=== PATIENT | female | born 1985 | race Caucasian/White ===

== ENCOUNTER 2022-07-30 14:24 | Outpatient (OUT) | payer OTHER, SELFPAY ==
--- NOTE | 2022-07-30 14:34 | US_ITS ---
[address] [address] Patient Name: ROBLES YEN MRN: [id number] date: 1985 Sex: F Assigned Patient Location: US Current Patient Location: US Accession/Order Number: [id number] Exam Date: 07/30/2022 14:34 Report Date: 07/30/2022 16:17 At the request of: KAROL SPIVEY Procedure: US venous doppler LE LT EXAMINATION: US venous doppler LE LT HISTORY: Pain of left calf M79.662 COMPARISON: No relevant comparison available. FINDINGS: REGION: Left lower extremity THROMBI: None. COMPRESSIBILITY: Normal compressibility. FLOW: Normal waveform and antegrade flow between 5 and 20 cm/s. OTHER: None. IMPRESSION: 1. No deep vein thrombus within the left lower extremity. Electronically authenticated by: DEEJAY REES Date: 07/30/2022 16:17
== END 2022-07-30 14:25 ==
PROVIDERS: PCP Nurse Practitioner; Visit Provider Personal Emergency Response Attendant
DX: M79.662 Pain in left lower leg (principal)
CPT/HCPCS: 93971

== ENCOUNTER 2022-12-29 09:41 | Outpatient (OUT) | payer OTHER, SELFPAY ==
[2022-12-29 10:03] LABS: Basophils Percent Auto 0.7 % (0.2-2.0); Eosinophils Absolute Auto 0.1 10^3/uL (0.0-0.7); Eosinophils Percent Auto 2.2 % (0.9-7.0); Hematocrit 38.9 % (36.0-48.0); Hemoglobin 12.9 g/dL (12.0-16.0); Immature Granulocytes Abs Auto 0.02 10^3/uL (0.00-0.03); Immature Granulocytes Pct Auto 0.3 % (0.0-0.5); Lymphocytes Absolute Auto 1.7 10^3/uL (1.2-3.8); Lymphocytes Percent Auto 28.8 % (20.5-60.0); Mean Corpuscular HGB Conc 33.2 g/dL (29.9-35.2); Mean Corpuscular Hemoglobin 28.8 pg (26.7-34.0); Mean Corpuscular Volume 86.8 fL (81.0-99.0); Mean Platelet Volume 11.1 fL (9.5-13.5); Monocytes Absolute Auto 0.6 10^3/uL (0.3-0.8); Monocytes Percent Auto 9.2 % (1.7-12.0); Neutrophils Absolute Auto 3.5 10^3/uL (1.4-6.5); Neutrophils Percent Auto 58.8 % (43.0-75.0); Platelet Count 282 10^3/uL (150-450); Red Blood Count 4.48 10^6/uL (4.20-5.40); Red Cell Distribution Width 12.3 % (11.0-15.0)
[2022-12-29 10:31] LABS: Alanine Aminotransferase 35 U/L (14-59); Albumin Level 3.6 g/dL (3.4-5.0); Alkaline Phosphatase 65 U/L (46-116); Anion Gap 8.8; Aspartate Amino Transferase 28 U/L (15-37); BUN Creatinine Ratio 9.6; Bilirubin Total 0.5 mg/dL (0.2-1.0); Calcium 9.2 mg/dL (8.5-10.1); Carbon Dioxide 29.3 mmol/L (21.0-32.0); Chloride 104 mmol/L (98-107); Estimated GFR (African America >60 (>=60); Estimated GFR (Non-African Ame 54 (>=60); Globulin 3.7 g/dL; Glucose 91 mg/dL (74-106); Potassium 4.1 mmol/L (3.5-5.1); Sodium 138 mmol/L (136-145); Thyroid Stimulating Hormone 2.903 uIU/mL (0.358-3.740); Total Protein 7.3 g/dL (6.4-8.2)
== END 2022-12-29 09:42 | disposition home or self-care (01) ==
LOC: LAB 09:43
PROVIDERS: PCP Nurse Practitioner; Visit Provider Nurse Practitioner
DX: R25.2 Cramp and spasm (principal); N92.0 Excessive and frequent menstruation with regular cycle
CPT/HCPCS: 36415; 80053; 82728; 83540; 83735; 84439; 84443; 85025

== ENCOUNTER 2023-03-23 20:11 | Outpatient (REF) | payer OTHER, SELFPAY ==
--- OUTSIDE RECORDS SUMMARY | 2023-03-24 20:19 | XMS_ITS | CCD ---
Author Name Unknown Address [address] [place] [address] Organization [facility] Care Team Providers Care [place] Name Role Phone Unavailable Primary Care Provider UnavailKika Huitron Primary Care Provider Kika Guaman Primary Care Provider [phone] POOL, AMAYA E Referring Unavailable KIKA GUAMAN Primary Care Unavailable POOL, AMAYA E Referring Unavailable KIKA GUAMAN Primary Care Unavailable POOL, AMAYA E Referring Unavailable KIKA GUAMAN Primary Care Unavailable POOL, AMAYA E Referring Unavailable REYNA GUAMANA Larry Primary Care Unavailable POOL, AMAYA E Referring Unavailable KIKA GUAMAN Primary Care Unavailable Kika Guaman Primary Care Provider Katiuska Ho Unavailable Barbara Zhu Unavailable AICHHOLZ, MUSIC PUBLISHER KIKA Primary Care Unavailable CAROLINA, DR JOSSY Tran Admitting Unavailbud FIGUEROA, DR JOSSY Tran Attending Unavailbud e ALLYSSA ., MR KAROL Consulting Unavailable AICHHOLZ, MUSIC PUBLISHER KIKA Primary Care Unavailable DR VINCENZO FISCHER Admitting Unavailable LAWRENCE, DR VINCENZO Rahman Attending Unavailable DR VINCENZO FISCHER Consulting Unavailable AICHHOLZ, MUSIC PUBLISHER KIKA Admitting Unavailable AICHHOLZ, MUSIC PUBLISHER KIKA Attending Unavailable AICHHOLZ, MUSIC PUBLISHER KIKA Primary Care Unavailable AICHHOLZ, MUSIC PUBLISHER KIKA Consulting Unavailable RONALD JOHN Consulting Unavailable AICHHOLZ, MUSIC PUBLISHER KIKA Admitting Unavailable AICHHOLZ, MUSIC PUBLISHER KIKA Attending Unavailable AICHHOLZ, MUSIC PUBLISHER KIKA Primary Care Unavailable AICHHOLZ, MUSIC PUBLISHER KIKA Consulting Unavailable AICHHOLZ, MUSIC PUBLISHER KIKA Admitting Unavailable AICHHOLZ, MUSIC PUBLISHER KIKA Attending Unavailable AICHHOLZ, MUSIC PUBLISHER KIKA Primary Care Unavailable AICHHOLZ, MUSIC PUBLISHER KIKA Consulting Unavailable AICHHOLZ, MUSIC PUBLISHER KIKA Admitting Unavailable AICHHOLZ, MUSIC PUBLISHER KIKA Attending Unavailable AICHHOLZ, MUSIC PUBLISHER KIKA Primary Care Unavailable AICHHOLZ, MUSIC PUBLISHER KIKA Consulting Unavailable AICHHOLZ, MUSIC PUBLISHER KIKA Primary Care Unavailable DR VINCENZO FISCHER Admitting Unavailable LAWRENCE, DR VINCENZO Rahman Attending Unavailable DR VINCENZO FISCHER Consulting Unavailable CABRERA, DR DEEJAY Rahman Consulting Unavailable RAJINDER CELESTE Consulting Unavailable AICHOLZ, KIKA Attending Unavailable AICHOLZ, KIKA Attending Unavailable Medications Current Medications Medication Drug Class(es) Dates Sig (Normalized) Sig (Original) acetaminophen 325 mg oral tablet (6 sources) Start: 12-21-2018 End: 12-22-2018 take 650 mg by mouth every four hours as needed for fever, then take 4000 mg by mouth every twenty-four hours as needed for fever 650 mg, Oral, EVERY 4 HOURS PRN, Fever, Fever >100.5 F (38 C) or pain 1-10, Starting Tue12/22/18 at 0325 Maximum dose of acetaminophen is 4000 mg from all sources in 24 hours. take 2 tablets by mo uth every six hours as needed for pain acetaminophen (TYLENOL) 325 MG tablet Ta ke 650 mg by mouth every 6 hours as needed for Pain 0 Active benzocaine 200 mg/ml / menthol 5 mg/ml topical spray (1 source) Standardized Chemical Allergen Start: 12-22-2018 apply 1 dose topically twice daily Topical, 2 TIMES DAILY, First dose on Tue12/22/18 at 0900 Apply to perineal area. Patient is capable and may self administer at bedside. brompheniramine maleate 0.4 mg/ml / dextromethorphan hydrobromide 2 mg/ml / pseudoephedrine hydrochloride 6 mg/ml oral solution (1 source) alpha-Adrenergic Agonist, Uncompetitive N-enlddc-V-aspartat e Receptor Antagonist, Sigma-1 Agonist Start: 05-26-2021 take 10 mL by mouth every six hours Pseudoeph-Brom phen-DM 30-2-10 MG/5ML 10 mL Orally every 6 hours for 5 days May, Active docusate sodium 100 mg oral capsule (1 source) Start: 12-22-2018 take 100 mg by mouth twice daily as needed for constipation 100 mg, Oral, 2 TIMES DAILY PRN, Constipation, Starting Tue12/22/18 at 0325 Do not crush or break. ethinyl estradiol 0.035 mg / norgestimate 0.25 mg oral tablet (3 sources) Progestin, Estrogen Start: 02-08-2019 take 1 tablet by mouth once daily norgestimate-e thinyl estradiol (ORTHO-CYCLEN, 28,) 0.25-35 MG-MCG per tablet Indications: care following vaginal delivery Take 1 tablet by mouth daily 3 packet 3 02/08/2019 Active fluticasone propionate 0.05 mg/actuat metered dose nasal spray (3 sources) Corticosteroid Start: 05-26-2021 take 1 spray(s) nasal route once daily Flonase Allergy Relief 50 MCG/ACT 1 spray in each nostril Nasally Once a day for 14 day(s) May, Active Start: 12-10-2020 take 2 spray(s) nasa l route once daily FLONASE 50 mcg 2 sprays nasally qd Nov, Not-Taking Start: 12-10-2020 take 2 spray(s) nasa l route once daily FLONASE 50 mcg 2 sprays nasally qd Nov, Active ibuprofen 800 mg oral tablet (1 source) Nonsteroidal Anti-inflammatory Drug Start: 12-22-2018 take 800 mg by mouth every eight hours 800 mg, Oral, EVERY 8 HOURS, First dose on Tue12/22/18 at 0345 Do not crush or break. labetalol hydrochloride 100 mg oral tablet (3 sources) beta-Adrenergic Maude Start: 12-13-2018 take 100 mg by mouth twice daily 100 mg, Oral, 2 TIMES DAILY, First dose on Ila 12/21/18 at 2100 lanolin 0.5 mg/mg topical ointment (1 source) Start: 12-22-2018 Topical, PRN, Dry Skin, nipple discomfort, Starting Tue12/22/18 at 0325, oxytocin (PITOCIN) 30 units in 500 mL infusion (1 source) Start: 12-21-2018 oxytocin (PITOCIN) 30 units in 500 mL infusion MV-Min-Fe Fum-FA-DHA ( 1 PO) (13 sources) MV-Min-Fe Fum-FA-DHA ( 1 PO) Take by mouth daily 0 Active 3 ml sodium chloride 9 mg/ml injection (2 sources) Start: 12-22-2018 10 mL, Intravenous, EVERY 12 HOURS SCHEDULED (2 times per day), First dose on Tue12/22/18 at 0900, Start: 12-22-2018 take 10 mL intravenous route o nce 10 mL, Intravenous, PRN, Line Care, Starting Tue12/22/18 at 0325 After every IV line use witch saurabh 500 mg/ml medicated pad (1 source) Start: 12-22-2018 apply 1 dose topically twice daily Topical, 2 TIMES DAILY, First dose on Tue12/22/18 at 0900 Apply to perineal area. Patient is capable and may self administer at bedside. Completed/Discontinued Medications Medication Drug Class(es) Dates Sig (Normalized) Sig (Original) Blood Glucose Monitoring Suppl (TRUE METRIX METER) w/Device KIT (4 sources) Start: 10-23-2018 End: 12-23-2018 Blood Glucose Monitoring Suppl (TRUE METRIX METER) w/Device KIT use to test blood sugar 0 10/23/2018 12/23/2018 Discontinued (Stop Taking at Discharge) Start: 10-23-2018 Blood Glucose Monitoring Suppl (TRUE METRIX METER) w/Device KIT use to test blood sugar 0 10/23/2018 Active calcium chloride 0.0014 meq/ml / potassium chloride 0.004 meq/ml / sodium chloride 0.103 meq/ml / sodium lactate 0.028 meq/ml injectable solution (1 source) Start: 12-21-2018 End: 12-22-2018 lactated ringers infusion predniSONE 20 mg oral tablet (2 sources) Start: 12-10-2020 take 1 tablet by mouth every twelve hours predniSONE 20 MG 1 tablet Orally bid for 5 day(s) Nov, Not-Taking rho(d) immune globulin, human 1500 unt prefilled syringe (2 sources) Human Immunoglobulin G Start: 12-22-2018 End: 12-23-2018 300 mcg, Intramuscular, PRN, if mom negative and baby positive, Starting 11/1/19 at 0325, For 1 dose, Start: 10-17-2018 End: 10-17-2018 rho(D) immune globulin (HYPE RRHO S/D) injection 300 mcg sodium phosphate 67.8 mg/ml / sodium phosphate, monobasic 185 mg/ml enema (1 source) Start: 12-06-2018 End: 12-06-2018 fleet rectal enema 1 enema valACYclovir 500 mg oral tablet (8 sources) Herpesvirus Nucleoside Analog DNA Polymerase Inhibitor, Herpes Simplex Virus Nucleoside Analog DNA Polymerase Inhibitor, Herpes Zoster Virus Nucleoside Analog DNA Polymerase Inhibitor Start: 12-13-2018 End: 12-23-2018 take 1 tablet by mouth once daily valACYclovir (VALTREX) 500 MG tablet Indications: Hx of herpes genitalis Take 1 tablet by mouth daily 30 tablet 2 12/13/2018 12/23/2018 Discontinued (Stop Taking at Discharge) Start: 03-02-2017 take 1 tablet by josette th twice daily valACYclovir (VALTREX) 500 MG tablet Take 1 tablet by mouth 2 times daily 60 tablet 2 03/02/2017 Active Problems Active Problems Problem Classification Problem Date Documented Da te Episodic/Chronic Essential hypertension (10 sources) Hypertensive disorder; Translations: [Hypertension] Onset: 12-04-2018 12-04-2018 Chronic Hypertension complicating ; childbirth and the puerperium (10 sources) Pre-existing hypertension in obstetric context; Translations: [Pre-existing essential hypertension during in third trimester] 12-04-2018 Chronic Menstrual disorders (2 sources) Amenorrhea; Translations: [Irregular periods] Chronic Other aftercare (1 source) Other halfway (current) drug therapy; Translations: [OTH PENITENTIARY CURRENT DRUG THERAPY] Onset: 04-06-2022 Episodic Other complications of (14 sources) Anemia in mother complicating , childbirth AND/OR puerperium; Translations: [Anemia affecting in third trimester] Onset: 01-23-2016 Resolved: 03-20-2016 03-20-2016 Chronic Other connective tissue disease (1 source) Other muscle spasm; Translations: [OTHER MUSCLE SPASM] Onset: 04-06-2022 Episodic Other non-traumatic joint disorders (4 sources) Pain in left knee; Translations: [PAIN IN LEFT KNEE] Onset: 06-01-2022 Episodic Other nutritional; endocrine; and metabolic disorders (1 source) Obesity, unspecified; Translations: [OBESITY UNSPECIFIED] Onset: 09-22-2021 Chronic Other and delivery including normal (20 sources) Delivery normal; Translations: [ with uncertain dates] Onset: 01-09-2016 Resolved: 03-20-2016 02-09-2016 Episodic Residual codes; unclassified (1 source) Gestation period, 27 weeks; Translations: [27 weeks gestation of ] Episodic Residual codes; unclassified (1 source) Gestation period, 35 weeks; Translations: [35 weeks gestation of ] Episodic Residual codes; unclassified (8 sources) Gestation period, 34 weeks; Translations: [34 weeks gestation of ] 12-04-2018 Spondylosis; intervertebral disc disorders; other back problems (3 sources) Cervicalgia; Translations: [CERVICALGIA] Onset: 04-04-2022 Episodic Unclassified (2 sources) Patient encounter status; Translations: [Screen for STD (sexually transmitted disease)] Unclassified (1 source) LOW BACK PAIN, UNSPECIFIED; Translations: [LOW BACK PAIN, UNSPECIFIED] Onset: 04-06-2022 Unclassified (2 sources) COUGH, UNSPECIFIED; Translations: [COUGH, UNSPECIFIED] Onset: 09-29-2021 Urinary tract infections (1 source) Urinary tract infection, site not specified; Translations: [UTI SITE NOT SPECIFIED] Onset: 04-06-2022 Episodic Viral infection (13 sources) Anogenital herpesviral infection; Translations: [Anogenital herpes simplex virus (HSV) infection] Onset: 01-09-2016 02-09-2016 Chronic Viral infection (2 sources) COVID-19; Translations: [Disease caused by 2019-nCoV] Onset: 09-29-2021 Past or Other Problems Problem Classification Problem Date Documented Da te Episodic/Chronic Complications of surgical procedures or medical care (1 source) Infection following a procedure, unspecified, initial encounter; Translations: [INFECTION FOLLOWING PROC UNSP INIT] Onset: 12-24-2021 Episodic Diabetes or abnormal glucose tolerance complicating ; childbirth; or the puerperium (20 sources) Gestational diabetes mellitus, class A>1<; Translations: [Gestational diabetes mellitus] Onset: 01-09-2016 01-09-2016 Episodic Early or threatened labor (13 sources) Premature uterine contraction; Translations: [ uterine contractions in third trimester, antepartum] Onset: 01-09-2016 Resolved: 03-20-2016 03-20-2016 Episodic distress and abnormal forces of labor (20 sources) Irregular uterine contractions; Translations: [Irregular uterine contractions] Onset: 01-07-2016 Resolved: 03-20-2016 03-20-2016 Episodic Immunizations and screening for infectious disease (13 sources) Serology positive; Translations: [Contact with and (suspected) exposure to other viral communicable diseases] Onset: 12-10-2020 Resolved: 01-14-2021 12-22-2018 Episodic Nausea and vomiting (13 sources) Nausea and vomiting; Translations: [Nausea and vomiting during ] Onset: 01-22-2016 Resolved: 03-20-2016 03-20-2016 Episodic Other complications of (14 sources) Herpes in ; Translations: [Herpes infection in ] Onset: 01-10-2016 01-13-2016 Episodic Other gastrointestinal disorders (13 sources) Diarrhea; Translations: [Diarrhea in adult patient] Onset: 01-22-2016 Resolved: 03-20-2016 03-20-2016 Episodic Other gastrointestinal disorders (8 sources) Constipation; Translations: [Constipation during in third trimester] Onset: 12-05-2018 12-05-2018 Episodic Other screening for suspected conditions (not mental disorders or infectious disease) (12 sources) Blood urate raised; Translations: [Possible ] Onset: 12-21-2018 Resolved: 01-04-2019 01-04-2019 Episodic Other skin disorders (4 sources) Localized swelling, mass and lump, head; Translations: [LOCALIZED SWELLING MASS AND LUMP HEAD] Onset: 12-22-2021 Episodic Other upper respiratory infections (2 sources) Acute sinusitis, unspecified; Translations: [Acute upper respiratory infection, unspecified] Onset: 12-10-2020 Resolved: 05-26-2021 Episodic Polyhydramnios and other problems of amniotic cavity (20 sources) Polyhydramnios; Translations: [Polyhydramnios with problem] Onset: 01-09-2016 Resolved: 01-04-2019 03-20-2016 Episodic Residual codes; unclassified (13 sources) Gestation period, 36 weeks; Translations: [36 weeks gestation of ] Onset: 01-22-2016 Resolved: 03-20-2016 03-20-2016 Episodic Residual codes; unclassified (13 sources) H/O: miscarriage; Translations: [H/O miscarriage, currently ] Onset: 06-18-2015 06-18-2015 Episodic Residual codes; unclassified (14 sources) Gestation period, 37 weeks; Translations: [37 weeks gestation of ] Onset: 02-03-2016 Resolved: 03-20-2016 03-20-2016 Episodic Residual codes; unclassified (13 sources) Gestation period, 33 weeks; Translations: [33 weeks gestation of ] Onset: 01-07-2016 Resolved: 03-20-2016 03-20-2016 Episodic Residual codes; unclassified (1 source) Gestation period, 34 weeks 12-04-2018 Episodic Residual codes; unclassified (1 source) Gestation period, 38 weeks Onset: 02-09-2016 Resolved: 03-20-2016 03-20-2016 Episodic Residual codes; unclassified (12 sources) Gestation period, 38 weeks; Translations: [38 weeks gestation of ] Onset: 02-09-2016 Resolved: 03-20-2016 03-20-2016 Unclassified (1 source) COUGH, UNSPECIFIED; Translations: [COUGH, UNSPECIFIED] Onset: 09-28-2021 Results Test Name Value Interpretation Reference Range Facility MRI KNEE LT WO CONon 023 MRI KNEE LT WO CON EXAM: MRI KNEE LT WO CON REASON FOR EXAM: Pain of left knee joint. TECHNIQUE: Multiplanar, multisequence imaging of the left knee was performed without contrast COMPARISON: No recent relevant imaging. FINDINGS: Laterally, the iliotibial band, fibular collateral ligament, popliteus tendon and biceps tendon are intact. The ACL is intact. The lateral meniscus demonstrates normal morphology and signal without tear. The lateral articular cartilage is intact. Medially, the medial collateral ligament is intact. The PCL is intact. The medial meniscus demonstrates normal morphology and signal without tear. The medial articular cartilage is intact. The extensor mechanism is intact. The patellofemoral cartilage is intact. The bone marrow signal is without fracture or osteonecrosis. Physiologic amount of fluid is present in the joint. The regional musculature is unremarkable. IMPRESSION: Unremarkable left knee MRI. Electronically authenticated by: RONALD JOHN Date: 2022-06-01 13:03 Normal [facility] CULTURE URINEon 04-07-2022 CULTURE URINE Isolate 1 Escherichia coli 10,000 cfu/mL of ORGANISM 1 Escherichia coli ANTIBIOTIC M.I.C RX STATUS Ampicillin >=32 R F Ampicillin/Sulbacta m >=32 R F Cefazolin 8 S F Ceftazidime <=1 S F Ceftriaxone <=1 S F Ertapenem <=0.5 S F Imipenem <=0.25 S F Amikacin <=2 S F Gentamicin >=16 R F Tobramycin 8 I F Ciprofloxacin <=0.25 S F Levofloxacin <=0.12 S F Nitrofurantoin <=16 S F Trimethoprim/Sulfam ethoxazole <=20 S F Normal [facility] Comment on above: Performed By: #### C VDTB #### [facility] [address] [place] [address] Dr. Latanya Donis ER URINE PROFILEon 3 Bilirubin Ql (U) Negative Normal NEGATIVE [facility] Comment on above: Performed By: #### Arti BOYLE UMICRO #### [facility] [address] [place] [address] Dr. Latanya Donis Clarity (U) CLEAR Normal CLEAR [facility] Comment on above: Performed By: #### Arti BOYLE UMICRO #### [facility] [address] [place] [address] Dr. Latanya Donis Color (U) BROWN Abnormal YELLOW [facility] Comment on above: Performed By: #### Arti BOYLE UMICRO #### [facility] [address] [place] [address] Dr. Latanya Donis ERUD A micrscopic examination will be performed if indicated. Normal [facility] Comment on above: Performed By: #### Arti BOYLE UMICRO #### [facility] [address] [place] [address] Dr. Latanya Donis Glucose Ql (U) Negative Normal NEGATIVE [facility] Comment on above: Performed By: #### Arti BOYLE UMICRO #### [facility] [address] [place] [address] Dr. Latanya Donis Hemoglobin Ql (U) LARGE Abnormal NEGATIVE [facility] Comment on above: Performed By: #### Arti BOYLE UMICRO #### [facility] [address] [place] [address] Dr. Latanya Donis Ketones Ql (U) Negative Normal NEGATIVE [facility] Comment on above: Performed By: #### LEE LUNA #### [facility] [address] [place] [address] Dr. Latanya Donis LEUKOCYTES MODERATE Abnormal NEGATIVE [facility] Comment on above: Performed By: #### STEFANIA LUNARO #### [facility] [address] [place] [address] Dr. Latanya Donis Nitrite Ql (U) Positive Abnormal NEGATIVE [facility] Comment on above: Performed By: #### STEFANIA LUNARO #### [facility] [address] [place] [address] Dr. Latanya Donis pH (U) 5.5 [pH] Normal 5-9 [facility] Comment on above: Performed By: #### LEE LUNA #### [facility] [address] [place] [address] Dr. Latanya Donis Protein (U) [Mass/Vol] 100 mg/dL Abnormal NEGATIVE/ TRACE [facility] Comment on above: Performed By: #### LEE LUNA #### [facility] [address] [place] [address] Dr. Latanya Donis SPEC GRAVITY 1.025 Normal 1.005-<=1.025 [facility] Comment on above: Performed By: #### STEFANIA LUNARO #### [facility] [address] [place] [address] Dr. Latanya Donis UR MICRO IND INDICATED Normal [facility] Comment on above: Performed By: #### STEFANIA LUNARO #### [facility] [address] [place] [address] Dr. Latanya Donis Urobilinogen Qn (U) 1.0 {Hanny'U}/dL Normal 0.2 - 1. 0 [facility] Comment on above: Performed By: #### STEFANIA LUNARO #### [facility] [address] [place] [address] Dr. Latanya Donis URINE MICROSCOPIC ONLYon BACTERIA MODERATE Abnormal NONE SEEN [facility] Comment on above: Performed By: #### Arti BOYLE UMICRO #### [facility] [address] [place] [address] Dr. Latanya Donis Bacteria identified Cx Nom (U) INDICATED Normal [facility] Comment on above: Performed By: #### E RUR, UMICRO #### [facility] [address] [place] [address] Dr. Latanya Donis CAST NONE SEEN Normal NONE SEEN [facility] Comment on above: Performed By: #### E TAMAR, UMICRO #### [facility] [address] [place] [address] Dr. Latanya Donis Crystals LM Nom (Urine sed) NONE SEEN Normal NONE SEEN [facility] Comment on above: Performed By: #### E RULacey UMICRO #### [facility] [address] [place] [address] Dr. Latanya Donis Epithelial cells LM Ql (Urine sed) NONE SEEN Normal NONE SEEN /RARE [facility] Comment on above: Performed By: #### Arti BOYLE UMICRO #### [facility] [address] [place] [address] Dr. Latanya Donis MUCOUS NONE SEEN Normal NONE SEEN [facility] Comment on above: Performed By: #### Arti BOYLE, UMICRO #### [facility] [address] [place] [address] Dr. Latanya Donis RBC (U) [#/Vol] /uL Abnormal 0-2 [facility] Comment on above: Performed By: #### E TAMAR UMICRO #### [facility] [address] [place] [address] Dr. Latanya Donis WBC 5-10 Abnormal NONE SEEN [facility] Comment on above: Performed By: #### E TAMAR, UMICRO #### [facility] [address] [place] [address] FACIAL BONES W CONon 11-0 CT FACIAL BONES W CON EXAMINATION: CT FACIAL BONES W CON HISTORY: LOCALIZED SWELLING, MASS AND LUMP, UNSPECIFIED ; left facial pain; recent wisdom teeth removal COMPARISON: No relevant comparison available. TECHNIQUE: Axial, Coronal, and Sagittal CT images created with IV contrast. Dose reduction techniques were achieved by using automated exposure control and/or adjustment of mA and/or kV according to patient size and/or use of iterative reconstruction technique. FINDINGS: FACIAL BONES: No bony lesion or fracture. SINUSES: Trace amount of mucosal thickening within left maxillary sinus. No fluid levels. NASAL FOSSA: No mass, fracture, or significant septal deviation. SKULL BASE: No mass or bone destruction. ORBITS: No visible mass, hematoma, edema or fracture. SALIVARY GLANDS: No mass. Unremarkable parotid and submandibular glands. OTHER: Evidence of recent extraction of the posterior molar within the right and left side of the maxilla. Inflammatory changes within the soft tissue and fat lateral to the posterior aspect of the left side of mandible without abscess formation, free air, or free fluid. IMPRESSION: 1. Soft tissue inflammatory changes lateral to the posterior left side of the mandible secondary to recent tooth extraction. Small area of mild phlegmonous changes, but no abscess. 2. Mild chronic sinusitis. No fluid levels or evidence of acute sinus involvement. Electronically authenticated by: DEEJAY REES Date: 2021-12-22 22:26 Normal [facility] CBC AUTO DIFFon 12-22-2021 BASO # 0.0 103/ul Normal 0.0-0.1 [facility] Comment on above: Performed By: #### C BC #### [facility] [address] [address] [address] Latanya Donis Basophils/100 WBC (Bld) 0.3 % Normal 0.2-2.0 [facility] Comment on above: Performed By: #### C BC #### [facility] [address] [address] [address] Latanya Donis EO # 0.1 103/ul Normal 0.0-0.7 [facility] Comment on above: Performed By: #### C BC #### [facility] [address] [address] [address] Latanya Donis Eosinophils/100 WBC (Bld) 0.6 % Critically low 0.9-7.0 [facility] Comment on above: Performed By: #### C BC #### [facility] [address] [address] [address] Latanya Donis Erythrocyte distribution width (RBC) [Ratio] 12.2 % Normal 11.0-15.0 [facility] Comment on above: Performed By: #### C BC #### [facility] [address] [place] [address] Dr. Latanya Donis Hematocrit (Bld) [Volume fraction] 37.1 % Normal 36.0-48.0 [facility] [facility] Comment on above: Performed By: #### C BC #### [facility] [address] [place] [address] Dr. Latanya Donis Hemoglobin (Bld) [Mass/Vol] 12.5 g/dL Normal 12.0-16.0 [facility] Comment on above: Performed By: #### C BC #### [facility] [address] [place] [address] Dr. Latanya Donis IG # 0.03 10e3/ul Normal 0.00-0.03 [facility] Comment on above: Performed By: #### C BC #### [facility] [address] [place] [address] Dr. Latanya Donis IG % 0.3 % Normal 0.0-0.5 [facility] Comment on above: Performed By: #### C BC #### [facility] [address] [place] [address] Dr. Latanya Donis LYMPH # 1.6 103/ul Normal 1.2-3.8 [facility] Comment on above: Performed By: #### C BC #### [facility] [address] [place] [address] Dr. Latanya Donis Lymphocytes/100 WBC (Bld) 17.1 % Critically low 20.5-60.0 [facility] Comment on above: Performed By: #### C BC #### [facility] [address] [place] [address] Dr. Latanya Donis MANUAL DIFF REQ NO Normal [facility] Comment on above: Performed By: #### C BC #### [facility] [address] [address] [address] Latanya Donis MCH (RBC) [Entitic mass] 29.3 pg Normal 26.7-34.0 [facility] Comment on above: Performed By: #### C BC #### [facility] [address] [place] [address] Dr. Latanya Donis MCHC (RBC) [Mass/Vol] 33.7 g/dL Normal 29.9-35.2 [facility] Comment on above: Performed By: #### C BC #### [facility] [address] [place] [address] Dr. Latanya Donis MCV (RBC) [Entitic vol] 86.9 fL Normal 81.0-99.0 [facility] Comment on above: Performed By: #### C BC #### [facility] [address] [place] [address] Dr. Latanya Donis MONO # 0.8 103/ul Normal 0.3-0.8 [facility] Comment on above: Performed By: #### C BC #### [facility] [address] [place] [address] Dr. Latanya Donis Monocytes/100 WBC (Bld) 8.2 % Normal 1.7-12.0 [facility] Comment on above: Performed By: #### C BC #### [facility] [address] [place] [address] Dr. Latanya Donis NEUT # 7.0 103/ul Critically high 1.4-6.5 [facility] Comment on above: Performed By: #### C BC #### [facility] [address] [place] [address] Dr. Latanya Donis Neutrophils/100 WBC (Bld) 73.5 % Normal 43.0-75.0 [facility] Comment on above: Performed By: #### C BC #### [facility] [address] [place] [address] Dr. Latanya Donis Platelet mean volume (Bld) [Entitic vol] 11.4 fL Normal 9.5-13.5 [facility] Comment on above: Performed By: #### C BC #### [facility] [address] [place] [address] Dr. Latanya Donis PLT 266 103/ul Normal 150-450 [facility] Comment on above: Performed By: #### C BC #### [facility] [address] [place] [address] Dr. Latanya Donis RBC 4.27 106/ul Normal 4.20-5.40 [facility] Comment on above: Performed By: #### C BC #### [facility] [address] [place] [address] Dr. Latanya Donis WBC 9.5 103/ul Normal 4.0-11.0 [facility] Comment on above: Performed By: #### C BC #### [facility] [address] [place] [address] Dr. Latanya Donis CULTURE BLOODon 12-22-2021 Microscopic examination of blood, culture Culture Observations: NO GROWTH AT 5 DAYS. Normal [facility] Comment on above: Performed By: #### C VDTBH #### [facility] [address] [place] [address] Dr. Latanya Donis Microscopic examination of blood, culture Culture Observations: NO GROWTH AT 5 DAYS. Normal [facility] Comment on above: Performed By: #### C VDTBH #### [facility] [address] [place] [address] Dr. Latanya Donis PROF CHEM 8 (BAS METB)on Anion gap [Moles/Vol] 12.1 mmol/L [facility] Comment on above: Performed By: #### B MP #### [facility] [address] [place] [address] Dr. Latanya Donis Calcium [Mass/Vol] 8.9 mg/dL Normal 8.5-10.1 [facility] Comment on above: Performed By: #### B MP #### [facility] [address] [place] [address] Dr. Latanya Donis Chloride [Moles/Vol] 107 mmol/L Normal 98-107 [facility] Comment on above: Performed By: #### B MP #### [facility] [address] [address] [address] Latanya Donis CO2 [Moles/Vol] 25.3 mmol/L Normal 21.0-32.0 [facility] Comment on above: Performed By: #### B MP #### [facility] [address] [address] [address] Latanya Donis Creatinine [Mass/Vol] 0.99 mg/dL Normal 0.55-1.02 [facility] Comment on above: Performed By: #### B MP #### [facility] [address] [address] [address] Latanya Donis EGFR-AF FRENCH >60 Normal >=60 [facility] Comment on above: Performed By: #### B MP #### [facility] [address] [address] [address] Latanya Donis EGFR-NON AF FRENCH >60 Normal >=60 [facility] Comment on above: Performed By: #### B MP #### [facility] [address] [address] [address] Latanya Donis Glucose [Mass/Vol] 94 mg/dL Normal 74-106 [facility] Comment on above: Performed By: #### B MP #### [facility] [address] [address] [address] Latanya Donis Potassium [Moles/Vol] 3.4 mmol/L Critically low 3.5-5.1 [facility] Comment on above: Performed By: #### B MP #### [facility] [address] [address] [address] Latanya Donis Sodium [Moles/Vol] 141 mmol/L Normal 136-145 [facility] Comment on above: Performed By: #### B MP #### [facility] [address] [address] [address] Latanya Donis Urea nitrogen [Mass/Vol] 11.0 mg/dL Normal 7.0-18.0 [facility] Comment on above: Performed By: #### B MP #### [facility] [address] [address] [address] Latanya Donis Urea nitrogen/Creatinine [Mass ratio] 11.1 mg/mg Normal [facility] Comment on above: Performed By: #### B MP #### [facility] [address] [address] [address] Latanya Donis CHLAMYDIA/GONOCOCCUS GERALDINE (SW AB/URINE/PAPon 10-13-2021 Chlamydia trachomatis, GERALDINE Negative Normal Negative [facility] Comment on above: Performed By: #### C VDTBH #### [facility] [address] [address] [address] Latanya Donis Neisseria gonorrhoeae, GERALDINE Negative Normal Negative [facility] Comment on above: Performed By: #### C VDTBH #### [facility] [address] [place] [address] Dr. Latanya Donis HEPATITIS PANEL, ACUTEon HBsAg Screen Negative Normal Negative [facility] Comment on above: Performed By: #### H EPACUT #### [facility] [address] [place] [address] Dr. Latanya Donis HCV AB <0.1 Normal 0.0-0.9 [facility] Comment on above: Performed By: #### H EPACUT #### [facility] [address] [place] [address] Dr. Latanya Donis Hep A Ab, IgM Negative Normal Negative [facility] Comment on above: Performed By: #### H EPACUT #### [facility] [address] [place] [address] Dr. Latanya Donis Hep B Core Ab, IgM Negative Normal Negative [facility] Comment on above: Performed By: #### H EPACUT #### [facility] [address] [address] [address] Latanya Donis Interpretation: Comment Normal [facility] Comment on above: Result Comment: Nega tive Not infected with HCV, unless recent infection is suspected or other evidence exists to indicate HCV infection. Performed By: #### H EPACUT #### [facility] [address] [place] [address] Dr. Latanya Donis HIV 1 AND 2 WITH REFLEXon HIV Screen 4th Generation wRfx Non-Reactive Normal Non Reactive [facility] Comment on above: Result Comment: HIV Negative HIV-1/HIV-2 antibodies and HIV-1 p24 antigen were NOT detected. There is no laboratory evidence of HIV infection. Performed By: #### H IV12 #### [facility] [address] [place] [address] Dr. Latanya Donis RPR QUANTon 10-10-2021 Rapid Plasma Reagin, Quant Non-Reactive Normal NonRea<1:1 [facility] Comment on above: Result Comment: Plea se Note: This test does not meet current guidelines for screening and diagnosis of syphilis. This test is intended for following treatment response in patients being treated for syphilis infection. To screen for syphilis infection, a reflex cascade that includes both RPR and a treponema-specific assay should be utilized, such as Treponema pallidum (Syphilis) Screening [place] (737121) or Rapid Plasma Reagin (RPR) Test With Reflex to Quantitative RPR and Confirmatory Treponema pallidum Antibodies (098813). Performed By: #### C VDTBH #### [facility] [address] [address] [address] Latanya Donis VAGINITIS/VAGINOSIS DNA PROB Kirill 10-10-2021 Delmy species Negative Normal Negative [facility] Comment on above: Performed By: #### V AGINT #### [facility] [address] [place] [address] Dr. Latanya Donis Gardnerella vaginalis Negative Normal Negative [facility] Comment on above: Performed By: #### V AGINT #### [facility] [address] [place] [address] Dr. Latanya Donis Trichomonas vaginalis Negative Normal Negative [facility] Comment on above: Performed By: #### V AGINT #### [facility] [address] [place] [address] Dr. Latanya Donis Covid-19 PCR (CVDTB)on SARS-CoV-2 (COVID-19) RNA GERALDINE+probe Ql (Unsp spec) Detected Critically abnormal NOT DETECTED [facility] Comment on above: Result Comment: This test is not yet approved or cleared by the [place] FDA. When there are no FDA-approved or cleared tests available, and other criteria are met, FDA can make tests available under an emergency access mechanism called an Emergency Use Authorization (EUA). The EUA for this test is supported by the Senior Net Programmer of Health and Human Service's declaration that circumstances exist to justify the emergency use of in vitro diagnostics for the detection and/or diagnosis of the virus that causes COVID-19. This EUA will remain in effect for the duration of the COVID-19 declaration justifying emergency of IVDs, unless it is terminated or revoked by the FDA (after which the test may no longer be used). Performed By: #### C VDTBH #### [facility] [address] [place] [address] Dr. Latanya Donis INSULINon 09-18-2021 Insulin 6.9 uIU/mL Normal 2.6-24.9 [facility] Comment on above: Performed By: #### I NSULIN #### [facility] [address] [place] [address] Dr. Latanya Donis FREE T4on 09-16-2021 Free T4 [Mass/Vol] 0.79 ng/dL Normal 0.76-1.46 [facility] Comment on above: Performed By: #### C VDTB #### [facility] [address] [place] [address] Dr. Latanya Donis GLYCOHEMOGLOBIN A1Con 2021 ADA RECOMMENDATION SEE BELOW Normal [facility] Comment on above: Result Comment: ADA RECOMMENDED LIMIT 4.0 - 6.0 ADA THERAPEUTIC TARGET < 7.0 ACTION SUGGESTED > 7.0 Performed By: #### A 1C #### [facility] [address] [place] [address] Dr. Latanya Donis Glucose [Mass/Vol] 91 mg/dL Normal [facility] Comment on above: Performed By: #### A 1C #### [facility] [address] [place] [address] Dr. Latanya Donis HbA1c (Bld) [Mass fraction] 4.8 % Normal 4.5-6.2 [facility] Comment on above: Performed By: #### A 1C #### [facility] [address] [place] [address] Dr. Latanya Donis PROF CHEM 8 (BAS METB)on Anion gap [Moles/Vol] 10.0 mmol/L Normal [facility] Comment on above: Performed By: #### C VDTBH #### [facility] [address] [place] [address] Dr. Latanya Donis Calcium [Mass/Vol] 9.8 mg/dL Normal 8.5-10.1 [facility] Comment on above: Performed By: #### C VDTBH #### [facility] [address] [place] [address] Dr. Latanya Donis Chloride [Moles/Vol] 103 mmol/L Normal 98-107 [facility] Comment on above: Performed By: #### C VDTBH #### [facility] [address] [place] [address] Dr. Latanya Donis CO2 [Moles/Vol] 30.4 mmol/L Normal 21.0-32.0 [facility] Comment on above: Performed By: #### C VDTBH #### [facility] [address] [place] [address] Dr. Latanya Donis Creatinine [Mass/Vol] 0.92 mg/dL Normal 0.55-1.02 [facility] Comment on above: Performed By: #### C VDTBH #### [facility] [address] [place] [address] Dr. Latanya Donis EGFR-AF FRENCH >60 Normal >=60 [facility] Comment on above: Performed By: #### C VDTBH #### [facility] [address] [place] [address] Dr. Latanya Donis EGFR-NON AF FRENCH >60 Normal >=60 [facility] Comment on above: Performed By: #### C VDTBH #### [facility] [address] [place] [address] Dr. Latanya Donis Glucose [Mass/Vol] 93 mg/dL Normal 74-106 [facility] Comment on above: Performed By: #### C VDTBH #### [facility] [address] [address] [address] Latanya Donis Potassium [Moles/Vol] 4.4 mmol/L Normal 3.5-5.1 [facility] Comment on above: Performed By: #### C VDTBH #### [facility] [address] [place] [address] Dr. Latanya Donis Sodium [Moles/Vol] 139 mmol/L Normal 136-145 [facility] Comment on above: Performed By: #### C VDTBH #### [facility] [address] [place] [address] Dr. Latanya Donis Urea nitrogen [Mass/Vol] 11.0 mg/dL Normal 7.0-18.0 [facility] Comment on above: Performed By: #### C VDTBH #### [facility] [address] [place] [address] Dr. Latanya Donis Urea nitrogen/Creatinine [Mass ratio] 12.0 mg/mg Normal [facility] Comment on above: Performed By: #### C VDTBH #### [facility] [address] [place] [address] Dr. Latanya Donis TSHon 09-16-2021 TSH 1.496 uIU/mL Normal 0.358-3.740 [facility] Comment on above: Performed By: #### C VDTBH #### [facility] [address] [place] [address] Dr. Latanya Donis COVID Quick Testingon 2020 Result Negative Jaco Solarsi Other COVID Quick Testingon 2020 Result Negative Jaco Solarsi Other Chlamydia/GC DNA, Uron 01-03 Chlamydia Probe, Ur Negative Normal NEG [facility] Comment on above: Result Comment: CHLA MYDIA TRACHOMATIS DNA not detected by nucleic acid amplification. This test is intended for medical purposes only and is not valid for the evaluation of suspected sexual abuse or for other forensic purposes. In certain contexts, culture may be required to meet applicable laws and regulations for diagnosis of C. trachomatis and N. gonorrhoeae infections. Per 2014 CDC recommendations, this test does not include confirmation of positive results by an alternative nucleic acid target. Performed By: #### U CGP #### [address] [address] Analysis Engineer: Ezio Calvillo MD Gonorrhea Probe, Ur Negative Normal NEG [facility] Comment on above: Result Comment: NEIS SERIA GONORRHOEAE DNA not detected by nucleic acid amplification. This test is intended for medical purposes only and is not valid for the evaluation of suspected sexual abuse or for other forensic purposes. In certain contexts, culture may be required to meet applicable laws and regulations for diagnosis of C. trachomatis and N. gonorrhoeae infections. Per 2014 CDC recommendations, this test does not include confirmation of positive results by an alternative nucleic acid target. Performed By: #### U CGP #### [address] [address] Analysis Engineer: Ezio Calvillo MD Cult,Urineon 01-04-2020 Cult,Urine Specimen Description .CLEAN CATCH URINE Special Requests NOT REPORTED Culture NO SIGNIFICANT GROWTH Report Status FINAL 01/04/2020 Normal [facility] Comment on above: Performed By: #### P PPVP #### [address] [address] Analysis Engineer: Ezio Calvillo MD Hemoglobin A1Con 01-04-2020 HbA1c (Bld) [Mass fraction] 4.8 % Normal 4.0-6.0 [facility] Comment on above: Performed By: #### A HCV, GLYHGB, HIVCMB #### [address] [address] Analysis Engineer: Ezio Calvillo MD HbA1c (Bld) [Mass fraction] 91 mg/dL Normal [facility] Comment on above: Result Comment: The ADA and AACC recommend providing the estimated average glucose result to permit better patient understanding of their HBA1c result. Performed By: #### A HCV, GLYHGB, HIVCMB #### [address] [place] [address] Analysis Engineer: Ezio Calvillo MD HIV Ag/Abon 01-03-2020 HIV Ag/Ab NONREACTIVE Normal [facility] Comment on above: Result Comment: No l aboratory evidence of HIV infection. If acute HIV infection is suspected, consider testing for HIV-1 RNA. Performed By: #### A HCV, GLYHGB, HIVCMB #### [address] [address] Analysis Engineer: Ezio Calvillo MD Hep C Abon 01-03-2020 Hep C Ab NONREACTIVE Normal [facility] Comment on above: Result Comment: The hepatitis C procedure used in our laboratory is a Chemiluminescent test specific for three recombinant HCV antigens. A negative anti-HCV result indicates that the antibodies to hepatitis C virus are not present at this time. Individuals with reactive anti-HCV should be considered infected and infectious until proven otherwise. Confirmation of all equivocal or reactive results is recommended by ordering HCV RNA by PCR. Performed By: #### A HCV, GLYHGB, HIVCMB #### [address] [address] Analysis Engineer: Ezio Calvillo MD Profileon 0 T.pallidum Ab Screen NONREACTIVE Normal [facility] Comment on above: Result Comment: T. pallidum antibodies are not detected. There is no serological evidence of infection with T. pallidum (early primary syphilis cannot be excluded). Retest in 2-4 weeks if syphilis is clinically suspect. Performed By: #### P RENAT #### [facility] [employer] [address] [place] [id number] Analysis Engineer: Ezio Calvillo MD [facility] [address] [place] [address] Analysis Engineer: Chase Glez MD Hep B Surf Ag NONREACTIVE Normal [facility] Comment on above: Performed By: #### P RENAT #### [address] [address] Analysis Engineer: Ezio Calvillo MD [facility] [address] [place] [address] Analysis Engineer: Chase Glez MD Rubella Ab, IgG 68.2 IU/mL Normal [facility] Comment on above: Result Comment: REFERENCE RANGE: <5.0 NON-REACTIVE (non-immune) 5.0 TO 9.9 EQUIVOCAL >=10.0 REACTIVE (immune) Performed By: #### P RENAT #### [facility] [address] [place], [place] [id number] Analysis Engineer: Ezio Calvillo MD [facility] [address] [place] [address] Analysis Engineer: Chase Glez MD HIV Screenon 01-02-2020 HIV Ag/Ab NONREACTIVE NONREACTIVE [place], [place] Comment on above: No laboratory eviden ce of HIV infection. If acute HIV infection is suspected, consider testing for HIV-1 RNA. Hepatitis C Antibodyon 01-01 Hepatitis C Ab NONREACTIVE NONREACTIVE [place], [place] Comment on above: The hepatitis C procedure used in our laboratory is a Chemiluminescent test specific for three recombinant HCV antigens. A negative anti-HCV result indicates that the antibodies to hepatitis C virus are not present at this time. Individuals with reactive anti-HCV should be considered infected and infectious until proven otherwise. Confirmation of all equivocal or reactive results is recommended by ordering HCV RNA by PCR. PROFILE Ion 020 Basophils (Bld) [#/Vol] 0.03 10*3/uL [place], [place] Basophils/100 WBC (Bld) 0 % 0 - 2 % [place] Differential Type NOT REPORTED [place] Eosinophils (Bld) [#/Vol] 0.12 10*3/uL [place] Eosinophils/100 WBC (Bld) 2 % 1 - 4 % [place] Erythrocyte distribution width (RBC) [Ratio] 12.4 % 11.8 - 14.4 % [place] Hematocrit (Bld) [Volume fraction] 41.5 % 36.3 - 47.1 % [place] Hemoglobin (Bld) [Mass/Vol] 13.5 g/dL 11.9 - 15.1 g/dL [place] Hepatitis B Surface Ag NONREACTIVE NONREACTIVE [place] Immature granulocytes (Bld) [#/Vol] 0 % 0 [place] Immature granulocytes (Bld) [#/Vol] 10*3/uL [place] Lymphocytes (Bld) [#/Vol] 2.14 10*3/uL [place] Lymphocytes/100 WBC (Bld) 28 % 24 - 43 % [place] MCH (RBC) [Entitic mass] 28.9 pg 25.2 - 33.5 pg [place] MCHC (RBC) [Mass/Vol] 32.5 g/dL 28.4 - 34.8 g/dL [place] MCV (RBC) [Entitic vol] 88.9 fL 82.6 - 102.9 fL [place] Monocytes (Bld) [#/Vol] 0.63 10*3/uL [place] Monocytes/100 WBC (Bld) 8 % 3 - 12 % [place] Platelet mean volume (Bld) [Entitic vol] 12.3 fL 8.1 - 13.5 fL [place], [place] Platelets (Bld) [#/Vol] NOT REPORTED [place] Platelets (Bld) [#/Vol] 213 10*3/uL [place] RBC (Bld) [#/Vol] 4.67 10*6/uL 3.95 - 5.1 1 m/uL [place], [place] RBC morphology finding Nom (Bld) NOT REPORTED [place] Rubella virus IgG Ql (S) 68.2 IU/mL [place], [place] Comment on above: REFERENCE RANGE: <5.0 NON-REACTIVE (non-immune) 5.0 TO 9.9 EQUIVOCAL >=10.0 REACTIVE (immune) Segmented neutrophils/100 WBC (Bld) 62 % 36 - 65 % [place] Segs Absolute 4.69 [place], [place] T. pallidum, IgG NONREACTIVE NONREACTIVE [place], [place] Comment on above: T. pallidum antibodies are not detected. There is no serological evidence of infection with T. pallidum (early primary syphilis cannot be excluded). Retest in 2-4 weeks if syphilis is clinically suspect. WBC (Bld) [#/Vol] 7.6 10*3/uL [place] WBC (Bld) [#/Vol] 0.0 10*3/uL 0.0 per 10 0 WBC [place] WBC Morphology NOT REPORTED [place], [place] TYPE AND SCREENon 1 03-03-2019 ABO/Rh Negative [place], [place] Profileon 0 Abs. Basophil 0.03 k/uL Normal 0.00-0.20 [facility] Comment on above: Performed By: #### P RENAT #### [place] [address] Analysis Engineer: Ezio Calvillo MD [address] [place] [address] Analysis Engineer: Chase Glez MD Abs.Imm.Granulocyte <0.03 Normal 0.00-0.30 [facility] Comment on above: Performed By: #### P RENAT #### [place] [id number] Analysis Engineer: Ezio Calvillo MD [facility] [address] [place] [address] [place] [address] Analysis Engineer: Chase Glez MD Abs.Neutrophil (Seg) 4.69 k/uL Normal 1.50-8.10 [facility] Comment on above: Performed By: #### P RENAT #### [place] [address] Analysis Engineer: Ezio Calvillo MD [facility] [address] [place] [address] [place] [id number] Analysis Engineer: Chase Glez MD Basophils/100 WBC (Bld) 0 % Normal 0-2 [facility] Comment on above: Performed By: #### P RENAT #### [address] [address] Analysis Engineer: Ezio Calvillo MD [address] [place] [id number] Analysis Engineer: Chase Glez MD Eosinophils (Bld) [#/Vol] 0.12 10*3/uL Normal 0.00-0.44 [facility] Comment on above: Performed By: #### P RENAT #### [address] [address] Analysis Engineer: Ezio aClvillo MD [address] [place] [phone] Analysis Engineer: Chase Glez MD Eosinophils/100 WBC (Bld) 2 % Normal 1-4 [facility] Comment on above: Performed By: #### P RENAT #### [address] [address] Analysis Engineer: Ezio Calvillo MD [address] [place] [phone] Analysis Engineer: Chase Glez MD Erythrocyte distribution width (RBC) [Ratio] 12.4 % Normal 11.8-14.4 [facility] Comment on above: Performed By: #### P RENAT #### [address] [address] Analysis Engineer: Ezio Calvillo MD [address] [place] [phone] Analysis Engineer: Chase Glez MD Hematocrit (Bld) [Volume fraction] 41.5 % Normal 36.3-47.1 [facility] Comment on above: Performed By: #### P RENAT #### [address] [address] Analysis Engineer: Ezio Calvillo MD [address] [place] [phone] Analysis Engineer: Chase Glez MD Hemoglobin (Bld) [Mass/Vol] 13.5 g/dL Normal 11.9-15.1 [facility] Comment on above: Performed By: #### P RENAT #### [address] [address] Analysis Engineer: Ezio Calvillo MD [address] [place] [phone] Analysis Engineer: Chase Glez MD Immature granulocytes (Bld) [#/Vol] 0 % Normal 0 [facility] Comment on above: Performed By: #### P RENAT #### [address] [address] Analysis Engineer: Ezio Calvillo MD [address] [place] [phone] Analysis Engineer: Chase Glez MD Lymphocytes (Bld) [#/Vol] 2.14 10*3/uL Normal 1.10-3.70 [facility] Comment on above: Performed By: #### P RENAT #### [address] [address] Analysis Engineer: Ezio Calvillo MD [address] [place] [address] Analysis Engineer: Chase Glez MD Lymphocytes/100 WBC (Bld) 28 % Normal 24-43 [facility] Comment on above: Performed By: #### P RENAT #### [address] [address] Analysis Engineer: Ezio Calvillo MD [address] [place] [phone] Analysis Engineer: Chase Glez MD MCH (RBC) [Entitic mass] 28.9 pg Normal 25.2-33.5 [facility] Comment on above: Performed By: #### P RENAT #### [address] [address] Analysis Engineer: Ezio Calvillo MD [facility] [address] [place] [address] Dr. [place] [phone] Analysis Engineer: Chase Glez MD MCHC (RBC) [Mass/Vol] 32.5 g/dL Normal 28.4-34.8 [facility] Comment on above: Performed By: #### P RENAT #### [address] [address] Analysis Engineer: Ezio Calvillo MD [address] [place] [address] Analysis Engineer: Chase Glez MD MCV (RBC) [Entitic vol] 88.9 fL Normal 82.6-102.9 [facility] Comment on above: Performed By: #### P RENAT #### [address] [address] Analysis Engineer: Ezio Calvillo MD [address] [place] [phone] Analysis Engineer: Chase Glez MD Monocytes (Bld) [#/Vol] 0.63 10*3/uL Normal 0.10-1.20 [facility] Comment on above: Performed By: #### P RENAT #### [address] [address] Analysis Engineer: Ezio Calvillo MD [address] [place] [phone] Analysis Engineer: Chase Glez MD Monocytes/100 WBC (Bld) 8 % Normal 3-12 [facility] Comment on above: Performed By: #### P RENAT #### [address] [address] Analysis Engineer: Ezio Calvillo MD [address] [place] [phone] Analysis Engineer: Chase Glez MD Neutrophil (Seg) 62 % Normal 36-65 [facility] Comment on above: Performed By: #### P RENAT #### [place] [id number] [place] [address] Analysis Engineer: Ezio Calvillo MD [facility] [address] [place], [place] [phone] Analysis Engineer: Chase Glez MD NRBC Automated 0.0 per 100 WBC Normal 0.0 [facility] Comment on above: Performed By: #### P RENAT #### [address] [address] Analysis Engineer: Ezio Calvillo MD [facility] [address] [place] [address] Dr. [place] [phone] Analysis Engineer: Chase Glez MD Platelet mean volume (Bld) [Entitic vol] 12.3 fL Normal 8.1-13.5 [facility] Comment on above: Performed By: #### P RENAT #### [address] [address] Analysis Engineer: Ezio Calvillo MD [facility] [address] [place] [address] Dr. [place] [phone] Analysis Engineer: Chase Glez MD Platelets (Bld) [#/Vol] 213 10*3/uL Normal 138-453 [facility] Comment on above: Performed By: #### P RENAT #### [address] [address] Analysis Engineer: Ezio Calvillo MD [facility] [address] [place] [phone] Analysis Engineer: Chase Glez MD RBC (Bld) [#/Vol] 4.67 10*6/uL Normal 3.95-5.11 [facility] Comment on above: Performed By: #### P RENAT #### [address] [address] Analysis Engineer: Ezio Calvillo MD [address] [place] [address] Analysis Engineer: Chase Glez MD WBC (Bld) [#/Vol] 7.6 10*3/uL Normal 3.5-11.3 [facility] Comment on above: Performed By: #### P RENAT #### [address] [address] Analysis Engineer: Ezio Calvillo MD [address] [place] [phone] Analysis Engineer: Chase Gelz MD Auto Diff Performed NOT REPORTED Normal [facility] Comment on above: Performed By: #### P RENAT #### [address] [address] Analysis Engineer: Ezio Calvillo MD [address] [place] [address] Analysis Engineer: Chase Glez MD Platelets (Bld) [#/Vol] NOT REPORTED Normal [facility] Comment on above: Performed By: #### P RENAT #### [address] [address] Analysis Engineer: Ezio Calvillo MD [address] [place] [address] Analysis Engineer: Chase Glez MD RBC morphology finding Nom (Bld) NOT REPORTED Normal [facility] Comment on above: Performed By: #### P RENAT #### [address] [address] Analysis Engineer: Ezio Calvillo MD [address] [place] [address] Analysis Engineer: Chase Glez MD WBC Morphology NOT REPORTED Normal [facility] Comment on above: Performed By: #### P RENAT #### [address] [id number] Analysis Engineer: Ezio Calvillo MD [facility] [address] [place], [place] [phone] Analysis Engineer: Chase Glez MD Type + Scrnon 01-01 Type + Scrn Negative [facility] Comment on above: Performed By: #### P RTYS #### [facility] [address] [place], [place] [phone] Analysis Engineer: Chase Glez MD Toxicology Scree, Urineon Amphetamine(s),Ur Negative Normal [facility] Comment on above: Performed By: #### C PDAU #### [facility] [address] [place], [place] [phone] Analysis Engineer: Chase Glez MD Barbiturate(s),Ur Negative Normal NEG [facility] Comment on above: Performed By: #### C PDAU #### [facility] [address] [place], [place] [phone] Analysis Engineer: Chase Glez MD Benzodiazepine(s) Negative Normal [facility] Comment on above: Performed By: #### C PDAU #### [facility] [address] [place], [place] [phone] Analysis Engineer: Chase Glez MD Buprenorphrine, Ur Negative Normal [facility] Comment on above: Performed By: #### C PDAU #### [facility] [address] [place], [place] [phone] Analysis Engineer: Chase Glez MD Cannabinoid(s),Ur Negative Normal [facility] Comment on above: Performed By: #### C PDAU #### [facility] [address] [place], [place] [phone] Analysis Engineer: Chase Glez MD Cocaine Metabolite Negative Normal [facility] Comment on above: Performed By: #### C PDAU #### [facility] [address] [place], [place] [phone] Analysis Engineer: Chase Glez MD Methadone Ql (U) Negative Normal NEG [facility] Comment on above: Performed By: #### C PDAU #### [facility] [address] [place], [place] [phone] Analysis Engineer: Chase Glez MD Methamphetamine, Ur Negative Normal NEG [facility] Comment on above: Performed By: #### C PDAU #### [facility] [address] [place], [place] [phone] Analysis Engineer: Chase Glez MD Opiate(s), Ur Negative Normal NEG [facility] Comment on above: Performed By: #### C PDAU #### [facility] [address] [place], [place] [phone] Analysis Engineer: Chase Glez MD Oxycodone, Urine Negative Normal NEG [facility] Comment on above: Performed By: #### C PDAU #### [facility] [address] [place], [place] [phone] Analysis Engineer: Chase Glez MD Phencyclidine, Ur Negative Normal [facility] Comment on above: Performed By: #### C PDAU #### [facility] [address] [place], [place] [phone] Analysis Engineer: Chase Glez MD Propoxyphene,Urine Negative Normal NEG [facility] Comment on above: Performed By: #### C PDAU #### [facility] [address] [place] [address] Analysis Engineer: Chase Glez MD Tricyclic antidepressants Screen Ql (U) Negative Normal [facility] Comment on above: Result Comment: Drug screen results are to be used for medical purposes only. All positive results are unconfirmed. Testing for employment or legal uses should be sent to a reference laboratory for confirmation. Performed By: #### C PDAU #### [facility] [address] [place], [place] [phone] Analysis Engineer: Chase Glez MD Interpretive Info NOT REPORTED Normal [facility] Comment on above: Performed By: #### C PDAU #### [facility] [address] [place], [place] [phone] Analysis Engineer: Chase Glez MD MDMA, Urine NOT REPORTED Normal NEG [facility] Comment on above: Performed By: #### C PDAU #### [facility] [address] [place] [address] Analysis Engineer: Chase Glez MD Urine Drug Screen, [facility] 01-02-2020 Amphetamine Screen, Ur Negative NEGATIVE [facility] [place] Barbiturate Screen, Ur Negative NEGATIVE [facility] [place] Benzodiazepine Screen, Urine Negative NEGATIVE [facility] [place] Buprenorphine Urine Negative NEGATIVE [facility] [place] Cannabinoid Scrn, Ur Negative NEGATIVE [facility] [place] [place] Cocaine Metabolite, Urine Negative NEGATIVE [facility] [place] MDMA, Urine NOT REPORTED NEGATIVE [facility] [place] [place] Methadone Screen, Urine Negative NEGATIVE [facility] [place] Methamphetamine, Urine Negative NEGATIVE [facility] [place] Opiates, Urine Negative NEGATIVE [facility] [place] [place] Oxycodone Screen, Ur Negative NEGATIVE [facility] [place] Phencyclidine, Urine Negative NEGATIVE [facility] [place] Propoxyphene, Urine Negative NEGATIVE [facility] [place] Test Information NOT REPORTED [facility] [place] Tricyclic Antidepressants, Urine Negative NEGATIVE [facility] [place] Comment on above: Drug screen results are to be used for medical purposes only. All positive results are unconfirmed. Testing for employment or legal uses should be sent to a reference laboratory for confirmation. Chlamydia/GC DNA, TPon 10-13 Chlamydia Probe, TP Negative Normal NEG [facility] Comment on above: Result Comment: CHLA MYDIA TRACHOMATIS DNA not detected by nucleic acid amplification. This test is intended for medical purposes only and is not valid for the evaluation of suspected sexual abuse or for other forensic purposes. In certain contexts, culture may be required to meet applicable laws and regulations for diagnosis of C. trachomatis and N. gonorrhoeae infections. Per 2014 CDC recommendations, this test does not include confirmation of positive results by an alternative nucleic acid target. Performed By: #### P PPVP #### [facility] [address] [place] [address] [phone] Analysis Engineer: Ezio Calvillo MD Gonorrhea Probe, TP Negative Normal NEG [facility] Comment on above: Result Comment: NEIS SERIA GONORRHOEAE DNA not detected by nucleic acid amplification. This test is intended for medical purposes only and is not valid for the evaluation of suspected sexual abuse or for other forensic purposes. In certain contexts, culture may be required to meet applicable laws and regulations for diagnosis of C. trachomatis and N. gonorrhoeae infections. Per 2014 CDC recommendations, this test does not include confirmation of positive results by an alternative nucleic acid target. Performed By: #### P PPVP #### [facility] [address] [place] [address] [phone] Analysis Engineer: Ezio Calvillo MD Cytologyon 10-11-2019 Cytology (NOTE) INTERPRETATION Cervical material, (ThinPrep vial, Imaging-assisted review): Specimen Adequacy: Satisfactory for evaluation. -Endocervical/trans formation zone component is absent. Descriptive Diagnosis: Negative for intraepithelial lesion or malignancy. Shift in rebecca suggestive of bacterial vaginosis. 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 [facility] Rec: [id number] Path Number: [id number] [facility] ANATOMIC PATHOLOGY [address] [place] [phone] [facility] Comment on above: Performed By: #### P PPVP #### [facility] [address] [place] [address] [id number] Analysis Engineer: Ezio Calvillo MD HCG, Quanton 02-06-2019 HCG, Quant <1 Normal <5 [facility] Comment on above: Result Comment: Non-preg premeno <=5 Postmeno <=8 Male <=3 If HCG results do not concur with clinical observations, additional testing to confirm results is recommended. Elevated results not associated with may be found in patients with other diseases such as tumors of the germ cells (testis, ovaries, etc.), bladder, pancreas, stomach, lungs, and liver. Performed By: #### B HCG #### [facility] [address] [place] [address] Analysis Engineer: Chase Glez MD hCG, Quantitative, Ordered By: Amaya Franco on 02-06-2019 hCG Quant <1 <5 IU/L [facility] Work Phone: Comment on above: Non-preg premeno <=5 Postmeno <=8 Male <=3 If HCG results do not concur with clinical observations, additional testing to confirm results is recommended. Elevated results not associated with may be found in patients with other diseases such as tumors of the germ cells (testis, ovaries, etc.), bladder, pancreas, stomach, lungs, and liver. Glucose [place]. 2 hron 18-20 19 2 Hr 139 mg/dL Normal 65-139 [facility] Comment on above: Performed By: #### G LU2HR #### [facility] [address] [place], [place] [phone] Analysis Engineer: Chase Glez MD 1 Hr 143 mg/dL Normal 65-184 [facility] Comment on above: Performed By: #### G LU2HR #### [facility] [address] [place] [address] Analysis Engineer: Chase Glez MD Fasting 91 mg/dL Normal 65-99 [facility] Comment on above: Performed By: #### G LU2HR #### [facility] [address] [place] [address] Analysis Engineer: Chase Glez MD Glucose [Mass/Vol] 75 g Normal [facility] Comment on above: Performed By: #### G LU2HR #### [facility] [address] [place] [address] Analysis Engineer: Chase Glez MD Glucose Tolerance, 2 Hrson 1 03-10-2018 Glucose [Mass/Vol] 75 g [place], [place] Glucose [Mass/Vol] 91 mg/dL 65 - 99 mg/dL [place], [place] Glucose, GTT - 1 Hour 143 mg/dL 65 - 184 mg/dL [place] Glucose, GTT - 2 Hour 139 mg/dL 65 - 139 mg/dL [place] Glucose, Whole Bloodon 01-08 Glucose [Mass/Vol] 88 mg/dL 74 - 100 mg/dL [place] Glucose, Whole Bloodon 12-22 Glucose [Mass/Vol] 104 mg/dL High 74 - 100 mg/dL [place] Interpretation and review of laboratory results Abnormal [place] APTTon 12-21-2018 aPTT Coag (Bld) [Time] 25.3 s [place] CBC auto differentialon 11-23 Basophils (Bld) [#/Vol] 10*3/uL [place] Basophils/100 WBC (Bld) 0 % 0 - 2 % [place] Differential Type NOT REPORTED [place] Eosinophils (Bld) [#/Vol] 0.10 10*3/uL [place] Eosinophils/100 WBC (Bld) 1 % 1 - 4 % [place] Erythrocyte distribution width (RBC) [Ratio] 14.2 % 11.8 - 14.4 % [place] Hematocrit (Bld) [Volume fraction] 29.5 % Low 36.3 - 47.1 % [place] Hemoglobin (Bld) [Mass/Vol] 9.8 g/dL Low 11.9 - 15.1 g/dL [place] Immature granulocytes (Bld) [#/Vol] 1 % High 0 [place] Immature granulocytes (Bld) [#/Vol] 0.10 10*3/uL [place] Interpretation and review of laboratory results Abnormal [place] Lymphocytes (Bld) [#/Vol] 1.31 10*3/uL [place] Lymphocytes/100 WBC (Bld) 18 % Low 24 - 43 % [place] MCH (RBC) [Entitic mass] 29.8 pg 25.2 - 33.5 pg [place] MCHC (RBC) [Mass/Vol] 33.2 g/dL 28.4 - 34.8 g/dL [place] MCV (RBC) [Entitic vol] 89.7 fL 82.6 - 102.9 fL [place] Monocytes (Bld) [#/Vol] 0.73 10*3/uL [place] Monocytes/100 WBC (Bld) 10 % 3 - 12 % [place] Platelet mean volume (Bld) [Entitic vol] 11.4 fL 8.1 - 13.5 fL [place] Platelets (Bld) [#/Vol] NOT REPORTED [place] Platelets (Bld) [#/Vol] 148 10*3/uL [place] RBC (Bld) [#/Vol] 3.29 10*6/uL Low 3.95 - 5.1 1 m/uL [place] RBC morphology finding Nom (Bld) NOT REPORTED [place] Segmented neutrophils/100 WBC (Bld) 70 % High 36 - 65 % [place] Segs Absolute 5.17 [place] WBC (Bld) [#/Vol] 7.4 10*3/uL [place] WBC (Bld) [#/Vol] 0.0 10*3/uL 0.0 per 10 0 WBC [place] WBC Morphology NOT REPORTED [place] Comprehensive metabolic pane susie 12-21-2018 Albumin [Mass/Vol] 3.1 g/dL Low 3.5 - 5.2 g/dL [place] Albumin/Globulin [Mass ratio] 1.0 {ratio} [place] ALP [Catalytic activity/Vol] 124 U/L High 35 - 104 U/L [place] ALT [Catalytic activity/Vol] 7 U/L 5 - 33 U/L [place] Anion gap [Moles/Vol] 13 mmol/L 9 - 17 mmol/L [place] AST [Catalytic activity/Vol] 14 U/L <32 [place] Bilirubin Ql (U) 0.36 mg/dL 0.3 - 1.2 mg/dL [place] Bun/Cre Ratio 10 [place] Calcium [Mass/Vol] 9.3 mg/dL 8.6 - 10. 4 mg/dL [place] Chloride [Moles/Vol] 103 mmol/L 98 - 10 7 mmol/L [place] CO2 [Moles/Vol] 19 mmol/L Low 20 - 31 mmol/L [place] Creatinine [Mass/Vol] 0.84 mg/dL 0.5 - 0.9 mg/dL [place] GFR >60 >60 mL/min [place] GFR Non- >60 >60 mL/min [place] Glucose [Mass/Vol] 77 mg/dL 70 - 99 mg/dL [place] Potassium [Moles/Vol] 3.8 mmol/L 3.7 - 5.3 mmol/L [place] Protein [Mass/Vol] 6.3 g/dL Low 6.4 - 8.3 g/dL [place] Sodium [Moles/Vol] 135 mmol/L 135 - 144 mmol/L [place] Urea nitrogen [Mass/Vol] 8 mg/dL 6 - 20 mg/dL [place] DRUG SCREEN MULTI URINEon Amphetamine Screen, Ur Negative NEGATIVE [place] Barbiturate Screen, Ur Negative NEGATIVE [place] Benzodiazepine Screen, Urine Negative NEGATIVE [place] Buprenorphine Urine Negative NEGATIVE [place] Cannabinoid Scrn, Ur Negative NEGATIVE [place] Cocaine Metabolite, Urine Negative NEGATIVE [place] MDMA, Urine NOT REPORTED NEGATIVE [place] Methadone Screen, Urine Negative NEGATIVE [place] Methamphetamine, Urine Negative NEGATIVE [place] Opiates, Urine Negative NEGATIVE [place] Oxycodone Screen, Ur Negative NEGATIVE [place] Phencyclidine, Urine Negative NEGATIVE [place] Propoxyphene, Urine Negative NEGATIVE [place] Test Information NOT REPORTED [place] Tricyclic Antidepressants, Urine Negative NEGATIVE [place] Comment on above: Drug screen results are to be used for medical purposes only. All positive results are unconfirmed. Testing for employment or legal uses should be sent to a reference laboratory for confirmation. Fibrinogenon 12-21-2018 Fibrinogen 481 mg/dL High 185 - 451 mg/dL [place] Interpretation and review of laboratory results Abnormal [place] Lactate Dehydrogenaseon 11-23 LD 201 U/L 135 - 214 U/L [place] Metabolic Panelon 12-21-2018 GFR/1.73 sq M predicted among non-blacks MDRD (S/P/Bld) [Vol rate/Area] [place] Comment on above: Average GFR for 30-3 9 years old: 107 mL/min/1.73sq m Chronic Kidney Disease: <60 mL/min/1.73sq m Kidney failure: <15 mL/min/1.73sq m eGFR calculated using average adult body mass. Additional eGFR calculator available at: http://www.[employer]/multiple_crcl_2012.htm Stage 1: Some kidney damage normal GFR Stage 2: Mild kidney damage GFR 60-89 Stage 3: Moderate kidney damage GFR 30-59 Stage 4: Severe kidney damage GFR 15-29 Stage 5: Severe kidney damage GFR <15 ESRD - chronic treatment by dialysis or transplant Otheron 12-21-2018 Interpretation and review of laboratory results Abnormal [place] Protime-INRon 12-21-2018 INR Coag (PPP) [Relative time] 1.0 {INR} [place] PT Coag (PPP) [Time] 9.8 s [place] Uric acidon 12-21-2018 Urate [Mass/Vol] 6.8 mg/dL High 2.4 - 5.7 mg/dL [place] APTTon 12-04-2018 aPTT Coag (Bld) [Time] 23.4 s [place] CBC Auto Differentialon 11-21 Basophils (Bld) [#/Vol] 0.03 10*3/uL [place] Basophils/100 WBC (Bld) 0 % 0 - 2 % [place] Differential Type NOT REPORTED [place] Eosinophils (Bld) [#/Vol] 0.12 10*3/uL [place] Eosinophils/100 WBC (Bld) 1 % 1 - 4 % [place] Erythrocyte distribution width (RBC) [Ratio] 14.3 % 11.8 - 14.4 % [place] Hematocrit (Bld) [Volume fraction] 30.2 % Low 36.3 - 47.1 % [place] Hemoglobin (Bld) [Mass/Vol] 10.3 g/dL Low 11.9 - 15.1 g/dL [place] Immature granulocytes (Bld) [#/Vol] 2 % High 0 [place] Immature granulocytes (Bld) [#/Vol] 0.22 10*3/uL [place] Interpretation and review of laboratory results Abnormal [place] Lymphocytes (Bld) [#/Vol] 1.19 10*3/uL [place] Lymphocytes/100 WBC (Bld) 13 % Low 24 - 43 % [place] MCH (RBC) [Entitic mass] 30.4 pg 25.2 - 33.5 pg [place] MCHC (RBC) [Mass/Vol] 34.1 g/dL 28.4 - 34.8 g/dL [place] MCV (RBC) [Entitic vol] 89.1 fL 82.6 - 102.9 fL [place] Monocytes (Bld) [#/Vol] 0.74 10*3/uL [place] Monocytes/100 WBC (Bld) 8 % 3 - 12 % [place] Platelet mean volume (Bld) [Entitic vol] NOT REPORTED 8.1 - 13.5 fL [place] Platelets (Bld) [#/Vol] NOT REPORTED [place] Platelets (Bld) [#/Vol] See Reflexed IPF Result [place] RBC (Bld) [#/Vol] 3.39 10*6/uL Low 3.95 - 5.1 1 m/uL [place] RBC morphology finding Nom (Bld) NOT REPORTED [place] Segmented neutrophils/100 WBC (Bld) 75 % High 36 - 65 % [place] Segs Absolute 6.71 [place] WBC (Bld) [#/Vol] 0.0 10*3/uL 0.0 per 10 0 WBC [place] WBC (Bld) [#/Vol] 9.0 10*3/uL [place] WBC Morphology NOT REPORTED [place] Comprehensive Metabolic Pane susie 12-04-2018 Albumin [Mass/Vol] 3.2 g/dL Low 3.5 - 5.2 g/dL [place] Albumin/Globulin [Mass ratio] 1.0 {ratio} [place] ALP [Catalytic activity/Vol] 106 U/L High 35 - 104 U/L [place] ALT [Catalytic activity/Vol] 7 U/L 5 - 33 U/L [place] Anion gap [Moles/Vol] 13 mmol/L 9 - 17 mmol/L [place] AST [Catalytic activity/Vol] 11 U/L <32 [place] Bilirubin Ql (U) 0.25 mg/dL Low 0.3 - 1.2 mg/dL [place] Bun/Cre Ratio 7 Low [place] Calcium [Mass/Vol] 9.8 mg/dL 8.6 - 10. 4 mg/dL [place] Chloride [Moles/Vol] 103 mmol/L 98 - 10 7 mmol/L [place], [place] CO2 [Moles/Vol] 19 mmol/L Low 20 - 31 mmol/L [place] Creatinine [Mass/Vol] 0.89 mg/dL 0.5 - 0.9 mg/dL [place], [place] GFR >60 >60 mL/min [place] GFR Non- >60 >60 mL/min [place] Glucose [Mass/Vol] 103 mg/dL High 70 - 99 mg/dL [place] Interpretation and review of laboratory results Abnormal [place] Potassium [Moles/Vol] 3.5 mmol/L Low 3.7 - 5.3 mmol/L [place] Protein [Mass/Vol] 6.5 g/dL 6.4 - 8.3 g/dL [place], [place] Sodium [Moles/Vol] 135 mmol/L 135 - 144 mmol/L [place], [place] Urea nitrogen [Mass/Vol] 6 mg/dL 6 - 20 mg/dL [place] Fibrinogenon 12-04-2018 Fibrinogen 498 mg/dL High 185 - 451 mg/dL [place], [place] Immature Platelet Fractionon 12-04-2018 Interpretation and review of laboratory results Abnormal [place] Platelet, Fluorescence 137 Low [place], [place] Platelet, Immature Fraction 10.3 % 1.1 - 10.3 % [place], [place] Lactate Dehydrogenaseon 11-21 LD 199 U/L 135 - 214 U/L [place], [place] Metabolic Panelon 12-04-2018 GFR/1.73 sq M predicted among non-blacks MDRD (S/P/Bld) [Vol rate/Area] [place], [place] Comment on above: Stage 1: Some kidney damage normal GFR Stage 2: Mild kidney damage GFR 60-89 Stage 3: Moderate kidney damage GFR 30-59 Stage 4: Severe kidney damage GFR 15-29 Stage 5: Severe kidney damage GFR <15 ESRD - chronic treatment by dialysis or transplant Average GFR for 30-3 9 years old: 107 mL/min/1.73sq m Chronic Kidney Disease: <60 mL/min/1.73sq m Kidney failure: <15 mL/min/1.73sq m eGFR calculated using average adult body mass. Additional eGFR calculator available at: http://[email or web address]/multiple_crcl_[email or web address].htm Microscopic Urinalysison Amorphous, UA NOT REPORTED None [place], [place] Bacteria, UA TRACE Abnormal None [place], [place] Casts UA NOT REPORTED /LPF [place] Crystals UA NOT REPORTED None /HPF [place] Epithelial Cells UA 5 TO 10 [place], [place] Interpretation and review of laboratory results Abnormal [place] Mucus, UA TRACE Abnormal None [place] Other Observations UA NOT REPORTED NOT REQ. [place] RBC (U) [#/Vol] None [place] Renal Epithelial, Urine NOT REPORTED 0 /HPF [place] Trichomonas, UA NOT REPORTED None [facility] [place] WBC, UA 5 TO 10 [place], [place] Yeast, UA NOT REPORTED None [place] - [place] Otheron 12-04-2018 Interpretation and review of laboratory results Abnormal [place] Protein / creatinine ratio, urineon 12-04-2018 Creatinine, Ur 93.6 mg/dL 28 - 217 mg/dL [place] Protein (U) [Mass/Vol] 14 mg/dL [place], [place] Comment on above: No normal range esta blished. Urine Total Protein Creatinine Ratio 0.15 [place], [place] Protime-INRon 12-04-2018 INR Coag (PPP) [Relative time] 0.9 {INR} [place], [place] PT Coag (PPP) [Time] 9.4 s Low [place] Uric Acidon 12-04-2018 Urate [Mass/Vol] 5.7 mg/dL 2.4 - 5.7 mg/dL [place], [place] Urinalysison 12-04-2018 Bilirubin Urine Negative NEGATIVE [place] Color, UA YELLOW YELLOW [place], [place] Glucose, Ur Negative NEGATIVE [place] Interpretation and review of laboratory results Abnormal [place], [place] Ketones Ql (U) Negative NEGATIVE [place], [place] Leukocyte esterase Test strip Ql (U) MODERATE Abnormal NEGATIVE [place], [place] Nitrite, Urine Negative NEGATIVE [place] pH, UA 7.5 [place], [place] Protein (U) [Mass/Vol] Negative NEGATIVE [place] Specific [place], UA 1.010 [place] Turbidity UA SLIGHTLY CLOUDY Abnormal [place]AR [place] Urinalysis Comments NOT REPORTED [place], [place] Urine Hgb Negative NEGATIVE [place], [place] Urobilinogen, Urine Normal Normal [place], [place] Glucose tolerance, 1 houron 10-16-2018 GLU ADMN Glucola [place], [place] Glucose tolerance screen 50g 194 mg/dL High 70 - 135 mg/dL [place] Interpretation and review of laboratory results Abnormal [place] Hemoglobinon 10-16-2018 Hemoglobin (Bld) [Mass/Vol] 10.8 g/dL Low 11.9 - 15.1 g/dL [place] Interpretation and review of laboratory results Abnormal [place] Vital Signs Date Time Vital Sign Value Performing Clinician Facility 05-26-2021 16:00-0400 Body height 160.02 cm Barbara Zhu Other [facility] Other 05-26-2021 16:00-0400 Body mass index (BMI) [Ratio] 32.59 kg/m2 Barbara Zhu Other [facility] Other 05-26-2021 16:00-0400 Body temperature 97.8 [degF] Barbara Zhu Other [facility] Other 05-26-2021 16:00-0400 Body weight 83.46 kg Barbara Zhu Other [facility] Other 05-26-2021 16:00-0400 SaO2% (BldA) [Mass fraction] 97 % Barbara Zhu Other [facility] Other 12-10-2020 16:15-0400 Body height 160.02 cm Katiuska Ho Other [facility] Other 12-10-2020 16:15-0400 Body mass index (BMI) [Ratio] 31.88 kg/m2 Katiuska Ho Other [facility] Other 12-10-2020 16:15-0400 Body temperature 98.2 [degF] Katiuska Ho Other [facility] Other 12-10-2020 16:15-0400 Body weight 81.65 kg Katiuska Ho Other [facility] Other 12-10-2020 16:15-0400 Respiratory rate 18 /min Katiuska Ho Other [facility] Other 12-10-2020 16:15-0400 SaO2% (BldA) [Mass fraction] 97 % Katuiska Ho Other [facility] Other 12-23-2018 08:46-0400 Body Temperature 97.59 [degF] [employer] , [place] 12-23-2018 08:46-0400 BP Diastolic 77 mm[Hg] [facility] [place] 12-23-2018 08:46-0400 BP Systolic 120 mm[Hg] [facility] [employer] [facility] , [place] 12-23-2018 08:46-0400 Pulse (Heart Rate) 81 /min [facility] [place] 12-23-2018 08:46-0400 Respiratory Rate 20 /min [facility], [place] 12-22-2018 02:11-0400 Pulse [facility]ximetry 98 % [facility] [place] 12-21-2018 15:35-0400 BMI (Body Mass Index) 37.91 kg/m2 [facility] [place] 12-21-2018 15:35-0400 Body weight 97.07 kg [facility] , [place] 12-21-2018 15:35-0400 Height 160 cm [facility] , [place] 12-06-2018 00:01-0400 Body Temperature 97.9 [degF] [facility], [place] 12-06-2018 00:01-0400 BP Diastolic 74 mm[Hg] [facility] , [place] 12-06-2018 00:01-0400 BP Systolic 121 mm[Hg] [facility] , [place] 12-06-2018 00:01-0400 Pulse (Heart Rate) 105 /min [facility], [place] 12-06-2018 00:01-0400 Respiratory Rate 18 /min [facility], [place] 12-05-2018 23:44-0400 BMI (Body Mass Index) 37.2 kg/m2 [facility], [place] 12-05-2018 23:44-0400 Body weight 95.25 kg [facility] , [place] 12-05-2018 23:44-0400 Height 160 cm [facility] , [place] 12-04-2018 11:48-0400 BP Diastolic 81 mm[Hg] [facility] , [place] 12-04-2018 11:48-0400 BP Systolic 120 mm[Hg] [facility] , [place] 12-04-2018 11:48-0400 Pulse (Heart Rate) 95 /min [facility] 12-04-2018 11:15-0400 Body Temperature 97.81 [degF] [facility], [place] 12-04-2018 11:15-0400 Respiratory Rate 18 /min [facility], [place] 10-17-2018 16:30-0400 Body Temperature 97.9 [degF] [address], [place] 10-17-2018 16:30-0400 BP Diastolic 84 mm[Hg] [facility] , [place] 10-17-2018 16:30-0400 BP Systolic 128 mm[Hg] [address] [place] 10-17-2018 16:30-0400 Pulse (Heart Rate) 86 /min [address] [place] 10-17-2018 16:30-0400 Respiratory Rate 20 /min [address], [place] Encounters Encounter Date Encounter Type Care Provider Facility Start: 03-23-2023 End: 03-23-2023 ambulatory KIKA AICHHOLZ Not Available Start: 02-23-2023 End: 02-23-2023 ambulatory KIKA AICHHOLZ Not Available Start: 06-01-2022 End: 06-02-2022 ambulatory 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 KIKA AICHHOLZ Facility:H1 Start: 04-04-2022 End: 04-04-2022 ambulatory MUSIC PUBLISHER KIKA AICHHOLZ Facility:H1 Start: 12-22-2021 End: 12-23-2021 ambulatory MUSIC PUBLISHER KIKA AICHHOLZ Facility:H1 Start: 10-09-2021 End: 10-09-2021 ambulatory MUSIC PUBLISHER KIKA AICHHOLZ Facility:H1 Start: 10-08-2021 End: 10-09-2021 ambulatory MUSIC PUBLISHER KIKA AICHHOLZ Facility:H1 Start: 09-28-2021 End: 09-28-2021 ambulatory MUSIC PUBLISHER KIKA AICHHOLZ Facility:H1 Start: 09-16-2021 End: 09-17-2021 ambulatory MUSIC PUBLISHER KIKA AICHHOLZ Facility:H1 Start: 05-26-2021 End: 05-26-2021 ambulatory Barbara Zhu Other [facility] Other Start: 05-26-2021 Office outpatient vi sit 25 minutes Barbara Zhu [facility] Start: 01-14-2021 End: 01-14-2021 ambulatory Katiuska Ho Other [facility] Other Start: 01-14-2021 Office outpatient vi sit 5 minutes Katiuska Ho [facility] Start: 12-10-2020 Office outpatient vi sit 15 minutes Katiuska Ho [facility] Start: 01-02-2020 End: 01-03-2020 Patient encounter procedure [facility] Start: 01-02-2020 End: 01-02-2020 Subsequent hospital visit by physician Kika LARA Laboratory Comment on above: Amenorrhea; Positive urine test; Encounter for supervision of other normal in first trimester Start: 10-11-2019 End: 10-12-2019 Patient encounter procedure [facility] Start: 10-11-2019 End: 10-11-2019 Subsequent hospital visit by physician Kika LARA Laboratory Comment on above: Screen for STD (sexu ally transmitted disease); Encounter for well woman exam with routine gynecological exam Start: 02-06-2019 End: 02-07-2019 Patient encounter procedure [facility] Start: 02-06-2019 End: 02-06-2019 Subsequent hospital visit by physician Kika Guaman Work Phone: [facility] Laboratory Comment on above: Irregular menses; Possible , not yet confirmed Start: 01-08-2019 End: 01-09-2019 Patient encounter procedure [facility] Start: 01-08-2019 End: 01-08-2019 Subsequent hospital visit by physician Flaquita Alvarado Drawing Room [facility] Laboratory Comment on above: Gestational diabetes mellitus (GDM), Start: 12-21-2018 End: 12-23-2018 Evaluation and management of inpatient [facility] [employer] Work Phone: [facility] Labor and Delivery Start: 12-13-2018 End: 12-13-2018 Subsequent hospital visit by physician Kika LARA Laboratory Comment on above: 35 weeks gestation o f Start: 12-05-2018 End: 12-06-2018 Subsequent hospital visit by physician Freya Fischer Work Phone: [facility] Labor and Delivery Start: 12-04-2018 End: 12-04-2018 Subsequent hospital visit by physician Amaya Franco Work Phone: [facility] Labor and Delivery Start: 10-25-2018 End: 10-25-2018 Subsequent hospital visit by physician Flaquita Diabetes Education Room [facility] Diabetic Education Comment on above: Arrived Start: 10-17-2018 End: 10-17-2018 Subsequent hospital visit by physician Flaquita Op Treatment Rm 01 [facility] Specialty Clinic (MOB) Start: 10-16-2018 End: 10-16-2018 Subsequent hospital visit by physician MARCO Laboratory Comment on above: 27 weeks gestation o f ; Rh negative state in antepartum period, third trimester RhD negative [facility] [place] Procedures Date Procedure Procedure Detail Performing Clinician Start: 01-02-2020 Obstetric panel KATHLEE N POOL Start: 01-02-2020 TYPE AND SCREEN AMAYA POOL Start: 01-02-2020 Antibody hiv-1&hiv-2 single result AMAYA POOL Start: 01-02-2020 C.TRACHOMATIS N.GONO RRHOEAE DNA, URINE AMAYA POOL Start: 01-02-2020 Culture bacterial quanttative colony count urine AMAYA POOL Start: 01-02-2020 Drug screen, qualitate/multi AMAYA POOL Start: 01-02-2020 Hemoglobin glycosylated a1c AMAYA POOL Start: 01-02-2020 Hepatitis c antibody KA THLEEN POOL Start: 01-02-2020 Antibody screen Kika Amanda penntammiereid Start: 01-02-2020 Blood typing serologic abo Amaya E Pool Work Phone: Start: 01-02-2020 Obstetric panel Kathlee n E Pool Work Phone: Start: 01-02-2020 Antibody hiv-1&hiv-2 single result Amaya E Pool Work Phone: Start: 01-02-2020 Drug screen, qualitate/multi Amaya E Pool Work Phone: Start: 01-02-2020 Hepatitis c antibody Ka thleen E Pool Work Phone: Start: 10-11-2019 Iaad ia chlamydia trachomatis A[facility]YA PO[facility] Start: 10-11-2019 Screen pap by maicol hawthorne md supv [facility] Start: 02-06-2019 Gonadotropin chorion ic quantitative AMAYA POOL Start: 02-06-2019 Gonadotropin chorion ic quantitative Amaya E Pool CORPORATE RECRUITER - CNM Work Phone: Start: 01-08-2019 Glucose quantitative blood xcpt reagent strip AMAYA FRANCO Start: 01-08-[address] gtt 3 specimens AMAYA FRANCO Start: 01-08-2019 GLUCOSE, WHOLE BLOOD Maureen Franco Work Phone: Start: 01-08-[address] gtt 3 specimens Amaya Franco Work Phone: Start: 12-22-2018 GLUCOSE, WHOLE BLOOD Maureen Franco Work Phone: Start: 12-21-2018 Assay of blood/uric acid Amaya Franco Work Phone: Start: 12-21-2018 Blood count complete auto&auto difrntl wbc Amaya Franco Work Phone: Start: 12-21-2018 Comprehensive metabo lic panel Amaya Franco Work Phone: Start: 12-21-2018 Fibrinogen activity Mar Franco Work Phone: Start: 12-21-2018 Lactate dehydrogenase ldh Amaya Franco Work Phone: Start: 12-21-2018 Prothrombin time Dunia Franco Work Phone: Start: 12-21-2018 Thromboplastin time partial plasma/whole blood Amaya Franco Work Phone: Start: 12-21-2018 Drug screen class list a Amaya Franco Work Phone: Start: 12-06-2018 nonstress test Michel steve Fischer Work Phone: Start: 12-04-2018 Assay of blood/uric acid Amaya Franco Work Phone: Start: 12-04-2018 Blood count complete auto&auto difrntl wbc Amaya Franco Work Phone: Start: 12-04-2018 Comprehensive metabo lic panel Amaya Chi Pool Work Phone: Start: 12-04-2018 Fibrinogen activity Mar galvan E Pool Work Phone: Start: 12-04-2018 IMMATURE PLATELET FRACTION Amaya Franco Work Phone: Start: 12-04-2018 Lactate dehydrogenase ldh Amaya Franco Work Phone: Start: 12-04-2018 Prothrombin time Dunia Franco Work Phone: Start: 12-04-2018 Thromboplastin time partial plasma/whole blood Amaya Franco Work Phone: Start: 12-04-2018 Protein total xcpt refractometry urine Amaya Franco Work Phone: Start: 12-04-2018 Urinalysis microscopic only Amaya Franco Work Phone: Start: 12-04-2018 Urnls dip stick/tabl et rgnt auto w/o microscopy Amaya Franco Work Phone: Start: 12-04-2018 nonstress test Ka marychuy Franco Work Phone: Start: 10-16-2018 Blood count hemoglobin Amaya Franco Work Phone: Start: 10-16-2018 Blood typing serolog ic rh (d) Amaya Franco Work Phone: Start: 10-16-[address] gtt 3 specimens Amaya Franco Work Phone: Plan of Treatment Date Care Activity Detail Author Start: 12-23-2028 DTaP/Tdap/Td vaccine (3 - Td) DTaP/Tdap/Td vaccine (3 - Td) [place] Start: 12-23-2028 DTaP/Tdap/Td vaccine (9 - Td) DTaP/Tdap/Td vaccine (9 - Td) [place] Start: 02-10-2026 DTaP/Tdap/Td vaccine (2 - Td) DTaP/Tdap/Td vaccine (2 - Td) [place] Start: 10-10-2024 Screening for malign ant neoplasm of cervix Cervical cancer screen [place], [place] Start: 08-13-2023 Cervical cancer screen Cervical canc er [place] Start: 10-03-2022 Screening for malign ant neoplasm of cervix Cervical cancer screen [place] Start: 10-16-2020 End: 10-16-2020 Office Visit 10/16/2020 Office Visit Obstetrics and Gynecology Amaya Franco APRN - CNM [address] [place], [place] [id number] [facility] OBSTETRICS & GYNECOLOGY Start: 01-21-2020 End: 01-21-2020 Routine 01/21/2020 Routine Obstetrics and Gynecology Amaya Franco APRN - [place] [address] [place] [address] [phone] [facility] OBSTETRICS GYNECOLOGY Start: 01-16-2020 End: 01-16-2020 Ancillary Procedure 01/16/2020 Ancillary Procedure Obstetrics and Gynecology [facility] OBSTETRICS GYNECOLOGY Start: 12-22-2019 Creatinine measurement Creatinine mo [place]itoring [place], [place] Start: 12-22-2019 Creatinine monitoring Creatinine [place] Start: 12-22-2019 Potassium monitoring Potassium monit [place] Start: 12-05-2019 Creatinine monitoring Creatinine mon [place], [place] Start: 12-05-2019 Potassium monitoring Potassium monit [place] Start: 10-23-2019 Influenza vaccination Flu vaccine (# 1) [place] Start: 02-26-2019 Influenza vaccination Flu vaccine (# 1) [place] Comment on above: Postponed from 10/22 (Not Indicated) Start: 02-08-2019 End: 02-08-2019 ambulatory 02/08/2019 Visit Obstetrics and Gynecology Amaya Franco APRN - PATR[place] [address] [place] [address] [facility] Start: 02-05-2019 End: 02-05-2019 Visit 02/05/2019 Visit Obstetrics and Gynecology Amaya Franco APRN - [place] [address] [place] [address] [facility] Start: 01-25-2019 Varicella Vaccine (1 of 2 - 2-dose childhood series) Varicella Vaccine (1 of 2 - 2-dose childhood series) [place] Comment on above: Postponed from 03/01 (Not Indicated) Start: 01-04-2019 End: 01-04-2019 Visit 01/04/2019 Visit Obstetrics and Gynecology KaranAmaya CORPORATE RECRUITER [facility] [address] [place] [address] [phone] [facility] Start: 12-25-2018 Influenza vaccination Flu vaccine (# 1) [place] Comment on above: Postponed from 10/22 (Not Indicated) Start: 12-25-2018 Varicella Vaccine (1 of 2 - 13+ 2-dose series) Varicella Vaccine (1 of 2 - 13+ 2-dose series) [place] Comment on above: Postponed from 03/01 (Not Indicated) Start: 12-21-2018 End: 12-21-2018 Routine 12/21/2018 Routine Obstetrics and Gynecology KaranAmaya CORPORATE RECRUITER [facility] [address] [place] [address] [facility] Start: 12-14-2018 End: 12-14-2018 Routine 12/14/2018 Routine Obstetrics and Gynecology Karan Amaya Chi CORPORATE RECRUITER [facility] [address] [place] [address] [facility] Start: 11-06-2018 End: 11-06-2018 Routine 11/06/2018 Routine Obstetrics and Gynecology KaranAmaya CORPORATE RECRUITER [facility] [address] [place] [address] [phone] [facility] Start: 10-22-2018 Influenza vaccination Flu vaccine (# 1) [place] Start: 2000 Varicella Vaccine (1 of 2 - 13+ 2-dose series) Varicella Vaccine (1 of 2 - 13+ 2-dose series) [place], [place] Start: 1988 Varicella vaccine (1 of 2 - 2-dose childhood series) Varicella vaccine (1 of 2 - 2-dose childhood series) [facility] Work Phone: End: 10-11-2019 C.trachomatis N.gonorrhoeae DNA, Thin Prep C.trachomatis N.gonorrhoeae DNA, Thin Prep Microbiology Routine Screen for STD (sexually transmitted disease) 1 Occurrences starting 10/11/2019 until 10/11/2019 [place] Comment on above: 1 Occurrences starti ng 10/11/2019 until 10/11/2019 C.trachomatis N.gonorrhoeae DNA, Thin Prep C.trachomatis N.gonorrhoeae DNA, Thin Prep Microbiology Routine Screen for STD (sexually transmitted disease) 10/11/2019 12:16 PM EDT [place] End: 01-02-2020 C.trachomatis N.gonorrhoeae DNA, Urine C.trachomatis N.gonorrhoeae DNA, Urine Microbiology Routine Amenorrhea Positive urine test Encounter for supervision of other normal in first trimester 1 Occurrences starting 01/02/2020 until 01/02/2020 [place] Comment on above: 1 Occurrences starti ng 01/02/2020 until 01/02/2020 C.trachomatis N.gonorrhoeae DNA, Urine C.trachomatis N.gonorrhoeae DNA, Urine Microbiology Routine Amenorrhea Positive urine test Encounter for supervision of other normal in first trimester 01/02/2020 4:57 PM EST [place] End: 01-02-2020 Culture, Urine Culture, Urine Microbiology Routine Amenorrhea Positive urine test Encounter for supervision of other normal in first trimester 1 Occurrences starting 01/02/2020 until 01/02/2020 [place] Comment on above: 1 Occurrences starti ng 01/02/2020 until 01/02/2020 Culture, Urine Culture, Urine Microbiology Routine Amenorrhea Positive urine test Encounter for supervision of other normal in first trimester 01/02/2020 4:57 PM [place] End: 10-11-2019 Cytopathology procedure, preparation of smear, genital source PAP SMEAR Lab Routine Encounter for well woman exam with routine gynecological exam 1 Occurrences starting 10/11/2019 [facility]: [facility] Occurrences starti ng 10/11/2019 until 10/11/2019 nonstress test nonst ress test OB Routine Daily until discontinued starting 12/06/2018, 1 completed [facility] Comment on above: Daily until disconti nued starting 12/06/2018, 1 completed End: 12-04-2018 nonstress test nonstress test OB Routine One Time for 1 Occurrences starting 12/04/2018 until 12/04/2018 [facility] Comment on above: One Time for 1 Occur rences starting 12/04/2018 until 12/04/2018 End: 01-02-2020 HbA1c (Bld) [Mass fraction] Hemoglobin A1C Lab Routine Amenorrhea Positive urine test Encounter for supervision of other normal in first trimester 1 Occurrences starting 01/02/2020 until 01/02/2020 [facility] Comment on above: 1 Occurrences starti ng 01/02/2020 until 01/02/2020 HbA1c (Bld) [Mass fraction] Hemoglobin A1C Lab Routine Amenorrhea Positive urine test Encounter for supervision of other normal in first trimester 01/02/2020 4:57 PM EST [facility] Non[facility]reather mask oxygen Nonrebreather mask oxygen Respiratory Care Routine As directed - RT (PRN) until discontinued starting 12/05/2018 [facility] Comment on above: As directed - RT (MD N) until discontinued starting 12/05/2018 End: 12-22-2018 POCT Glucose POCT Glucose Point of Care Testing Routine One Time for 1 Occurrences starting 12/22/2018 until 12/22/2018 [facility] Comment on above: One Time for 1 Occur rences starting 12/22/2018 until 12/22/2018 RHOGAM ANTEPARTUM RHOGAM ANTEPAR ANDRA Blood Bank Routine 27 weeks gestation of Rh negative state in antepartum period, third trimester 10/16/2018 7:08 PM EDT [facility] RH[facility] POSTPAR [facility]RA Blood Bank [employer] Label Print 12/22/2018 2:55 PM EDT [facility] End: 12-13-2018 Strep B Screen, Vaginal / Rectal Strep B Screen, Vaginal / Rectal Microbiology Routine 35 weeks gestation of 1 Occurrences starting 12/13/2018 until 12/13/2018 [place] Comment on above: 1 Occurrences starti ng 12/13/2018 until 12/13/2018 Strep B Screen, Vagi nal / Rectal Strep B Screen, Vaginal / Rectal Microbiology Routine 35 weeks gestation of 12/13/2018 4:12 PM EDT [place], [place] End: 12-05-2018 SVE SVE Point of Care Testing Routine One Time for 1 Occurrences starting 12/05/2018 until 12/05/2018 [place] Comment on above: One Time for 1 Occur rences starting 12/05/2018 until 12/05/2018 Immunizations Immunization Date Immunization Notes Care Provider Sarah gloria 12-23-2018 tetanus toxoid, redu [place] diphtheria toxoid, and acellular pertussis vaccine, adsorbed [place] 12-22-2018 diphtheria, tetanus toxoids and acellular pertussis vaccine, unspecified formulation [place] 02-11-2016 tetanus toxoid, redu [place] diphtheria toxoid, and acellular pertussis vaccine, adsorbed [place], [place] 05-08-2014 RHO(D) immune globul in - IM [place] Payers Date Payer Category Payer Unknown [facility] xxxxxxxxxxxx 2015-Present [phone] [place] [id number] xxxxxxxxxxxx [id number] 1987 Unknown [id number] 1987 Unknown [id number] 1987 Unknown [id number] 1987 Unknown [id number] 1987 Unknown [id number] 1987 Unknown [id number] 1987 Unknown [id number] 1987 Unknown [id number] 1987 Unknown [id number] .593 1987 Unknown [id number] .593 1987 Unknown [id number] 1987 Unknown [id number] 1987 Unknown [id number] 1987 Unknown [id number] 1957 Private Health Insurance [id number] 1959 Unknown [id number] Social History Date Type Detail Facility Start: 08-28-2018 End: 01-04-2019 Tobacco smoking status NHIS Never smoker [place], [place] Start: 08-28-2018 End: 12-04-2018 Alcohol intake Not Currently [place], [place] Start: 03-28-2014 Alcohol Comment rarely [place] Start: 04-20-2018 [place], [place] Sex Assigned At Not on file [place], [place] Start: 10-11-2019 End: 01-02-2020 Tobacco use and exposure Never used [facility] Start: 01-04-2019 End: 10-11-2019 Alcohol intake Ex-drinker (finding) Jan Taylor Y Exposure to SARS-CoV -2 (event) Not sure ANDRE[facility] Medical Equipment Procedure Code Equipment Code Equipment Origin al Text Equipment Identifier Dates Pt to test four times daily fastin, 2 hr pp [id number] Start: 10-18-2018 End: 12-23-2018 1 each by Other route 4 times daily One glucometer, test strips, lancets - per insurance coverage [id number] Start: 10-18-2018 End: 10-18-2019 use to test BLOO D SUGAR FOUR TIMES DAILY [id number] Start: 10-23-2018 End: 12-23-2018 Evaluation note 05-26-2021 Note Date & Type Note Facility 05-26-2021 Evaluation note Encounter Date Diagnosis Assessment Notes May, Viral URI with cough (ICD-10 - J06.9) Discussed diagnosis with patient. Will hold off on testing at this time. Will send in rx of Bromfed and Flonase to use as directed. Supportive care as directed, push fluids and rest, Tylenol and/or Motrin as directed for discomfort/fever, warm moist compress over sinuses several times a day, cool mist humidification, nasal saline spray as directed. Symptoms should improve in the next 3 days, if symptoms persist follow up with PCP. Immediate eval for warning s/sx as discussed. Patient verbalizes understanding and is agreeable to treatment plan. Work note provided x 1 day, no extension allowed Jaco Solarsi Other Evaluation note 01-14-2021 Note Date & Type Note Facility 01-14-2021 Evaluation note Encounter Date Diagnosis Assessment Notes Dec, Encounter for screening for other viral diseases (ICD-10 - Z11.59) Dec, Other Additional time spent conducting pre-visit phone call, screening for symptoms, instructions on social distancing, application and removal of PPE, and cleaning of examination room, equipment and supplies was preformed. Patient education given for testing methodology and results. Patient care instructions given in writting by [facility] document. Jaco Solarsi Other Evaluation note 12-10-2020 Note Date & Type Note Facility 12-10-2020 Evaluation note Encounter Date Diagnosis Assessment Notes Nov, Contact with and (suspected) exposure to other viral communicable diseases (ICD-10 - Z20.828) Nov, Acute sinusitis, recurrence not specified, unspecified location (ICD-10 - J01.90) Nov, Other Additional time spent conducting pre-visit phone call, screening for symptoms, instructions on social distancing, application and removal of PPE, and cleaning of examination room, equipment and supplies was preformed. Patient education given for testing methodology and results. Patient care instructions given in writting by [facility] document. Jaco Solarsi Other Evaluation note Note Date & Type Note Facility Evaluation note Diagnosis Irregular menses Irregular menstrual cycle Possible , not yet confirmed examination or test, unconfirmed documented in this encounter [employer] Phone: History general Narrative - Reported Note Date & Type Note Facility History general Narrative - Reported Type Surgical History laparoscopy Knees Right and Lef t Hospitalization History Childbirth Natural x4 Jaco Solarsi Other History general Narrative - Reported Note Date & Type Note Facility History general Narrative - Reported Type Medical History herpes Surgical History laparoscopy Knees Right and Lef t Surgical History cholecystectomy Surgical History appendectomy Surgical History right thumb\ Hospitalization History Childbirth Natural x4 Jaco Solarsi Other Assessments Diagnosis 27 weeks gestation of state, incidental Rh negative state in antepartum period, third trimester Diagnosis 35 weeks gestation of state, incidental Diagnosis Screen for STD (sexually transmitted disease) Screening examination for venereal disease Encounter for well woman exam with routine gynecological exam Diagnosis Amenorrhea Absence of menstruation Positive urine test Encounter for supervision of other normal in first trimester Diagnosis Hypertension- Primary Unspecified essential hypertension Elevated uric acid in blood Other abnormal blood chemistry Anemia affecting seventh Pre-existing essential hypertension during in third trimester 37 weeks gestation of state, incidental Herpes infection in Gestational diabetes mellitus (GDM) affecting seventh Polyhydramnios affecting in third trimester Positive test for herpes simplex virus (HSV) antibody Diagnosis Gestational diabetes mellitus (GDM), Advance Directives No Advanced Directives Records FoundDocuments on File Type Date Recorded Patient [employer] Expl anation Advance Directives and Living Will Power of Section Gang Latest Code Status on File Code Status Date Activated Date Inactivated Comments Full Code 02/09/2016 6:49 PM 02/11/2016 3:58 PM Full Code 02/09/2016 8:36 AM 02/09/2016 6:49 PM Full Code 12/06/2014 11:49 AM 12/06/2014 6:31 PM Latest Code Status on File Code Status Date Activated Date Inactivated Comments Full Code 12/05/2018 11:33 PM Full Code 02/09/2016 6:49 PM 02/11/2016 3:58 PM Latest Code Status on File Code Status Date Activated Date Inactivated Comments Full Code 12/05/2018 11:33 PM 12/06/2018 3:01 AM Documents on File 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 Galan Freya Husain [facility] Anahy Mahmood [facility] Dr. Mira Hagen Freya Conde [facility] ACTIVITY LIMITATIONS: ( z )Up and about as desired and tolerated ( )Up to bathroom only ( )Lay on either side ( )Avoid heavy lifting or exercise ( )No sex ( )No nipple stimulation ( )Complet bedrest ( )Avoid using stairs (z )Increase fluids DRINK AT LEAST eight-8oz. Glasses of water daily. Call your Doctor if: ( )Contractions are every 5 minutes apart (from start of one to the start of the next contraction) lasting 60 seconds for at least 1 hour, strong enough you can not walk or talk through the contraction and regular. (z )Bag of water breaks ( x )Vaginal bleeding ( x )Unusual pain occurs ( x )Decreased movement ( x ) labor: If you have 4 contractions in an hour Keep your scheduled follow up appointment. Or call for a follow up on call office in . IN CASE OF EMERGENCY CONTACT LABOR AND DELIVERY . documented in this encounter* Instructions* Madhavi Rowe RN - 12/23/2018 Follow-up with your OB doctor as specified. [facility] OB Department phone: Dr. Danis Franco [facility] Dr. Pete Fischer [address] or [place] DIET Eat a well balanced diet focusing on foods high in fiber and protein. Drink plenty of fluids especially water. To avoid constipation you may take a mild stool softener as recommended by your doctor or protocol officer. ACTIVITY Gradually increase your activity. Resume exercise regimen only after advice by your doctor or protocol officer. Avoid lifting anything heavier than a gallon of milk for SIX weeks. Avoid driving until your doctor or protocol officer has given their approval. Rise slowly from a lying to sitting and then a standing position. Climb stairs one at a time. Use caution when carrying your baby up and down the stairs. NO SEXUAL Activity for 4-6 weeks or until advised by your doctor; Nothing in vagina: intercourse, tampons, or douching. Be prepared to discuss family planning at your follow-up OB visit. You may feel tired or have a lack of energy. You may continue your vitamin to replenish nutrients post delivery. Nap when baby naps to catch up on sleep. EMOTIONS You may feel cruz, sad, teary, & overwhelmed. Contact your OB provider if you feel you may be showing signs of depression, or have thoughts of harming yourself or your . If infant will not stop crying, contact another adult for help or place in their crib on their back and take a break. NEVER shake your infant. BLEEDING Vaginal bleeding will decrease in amount over the next few weeks. You will notice that as your activity increases, your flow may increase. This is your body's way oftelling you, you need to take things easier and rest more often. Call your care provider if you are saturating more than one maxi pad in an hour & resting does not help. BREAST CARE Take medications as recommended by your doctor or protocol officer for pain If you develop a warm, red, tender area on your breast or develop a fever contact your OB provider. For moms: If you become engorged, feeding may be more difficult or painful for 1-2 days. You may find it helpful to hand express some milk so that the can latch on more easily. While , continue to take your vitamins as directed by your doctor or protocol officer. Refer to the booklet in the folder/binder for more information. If you feel you need more assistance or have questions, please call Gia Walton IBCLC, internal audit consultant, at or the OB department to schedule an appointment or phone consultation. For more FREE help, visit the Support Group on Tuesday evenings at 7 pm in the OB department. For NON- moms: You may apply ice packs to your breasts over your bra for twenty minutes at a time for comfort. Avoid stimulation to your breasts, when showering allow the water to strike your back not your breasts. Wear a good fitting bra until your milk dries, such as a sports bra. INCISIONAL CARE / NEYMAR CARE Clean your incision in the shower with mild soap. After shower pat the incision area dry and allow the area open to air. If used, Steri-strips should be completely removed by 2 weeks but you may remove them as they become loose or soiled. If used, Baylee should be removed by your care provider. If used/ordered, an abdominal binder may provide support for your incision. Use the neymar-bottle after toileting until bleeding stops. Cleanse your perineum from front to back If used, stitches will dissolve in 4-6 weeks. You may use a sitz bath or soak in a clean tub as needed for comfort. Kegel exercises will help restore bladder control. SWELLING Try to keep your legs elevated when you are sitting. When lying down keep your legs elevated. When wearing stocking or socks, make sure they are not too tight. WHEN TO CALL THE DOCTOR If you have a temp of 100.6 or more. If your bleeding has increased and you are saturating a pad in an hour. Your abdomen is tender to touch. You are passing blood clots bigger than the size of a lemon. If you are experiencing extreme weakness or dizziness. If you are having flu-like symptoms such as achy muscles or joints. There is a foul smell or a green color to your vaginal bleeding. If you have pain that cannot be relieved. You have persistent burning or frequency with urination. Call if you have concerns about your well-being. You are unable to sleep, eat, or are having thoughts of harming yourself or your baby. You have swelling, bleeding, drainage, foul odor, redness, or warmth in/around your incision or stitches. You have a red, warm, tender area in your calf. documented in this encounter* Instructions* Kika Corey RN - 10/17/2018 Outpatient Instructions for IM or Subcutaneous Injections [address] [place] [address] You are advised to carry out the following instructions: Diet: As prescribed by your physician. Activity: As prescribed by your physician. Care of the injection site: If your injection site becomes red, sore, swollen, painful,has drainage, or you develop a fever notify your Physician. Other: ? If you develop hives, rash, itching or have trouble breathing or any unusual symptoms, go to the nearest Emergency Room. These could be signs of an allergic reaction to the medication. Follow up appointment: ANY PROBLEMS OR CONCERNS FOLLOW UP WITH YOUR PHYSICIAN,OR GO TO THE NEAREST EMERGENCY ROOM. documented in this encounter* Instructions* Lavinia Addison RN - 12/04/2018 OUTPATIENT DISCHARGE Jennifer Calvert [facility] or [facility] Dr. Freeman Freya Fischer [facility] ACTIVITY LIMITATIONS: ( X )Up and about as desired and tolerated ( )Up to bathroom only ( X )Lay on either side (X )Avoid heavy lifting or exercise (X )No sex ( X )No nipple stimulation ( )Complet bedrest ( )Avoid using stairs (X )Increase fluids DRINK AT LEAST eight-8oz. Glasses of water daily. Call your Doctor if: ( X)Bag of water breaks (X )Vaginal bleeding (X )Unusual pain occurs ( X )Decreased movement (X ) labor: If you have 4 contractions in an hour Keep your scheduled follow up appointment. Or call for a follow up on . IN CASE OF EMERGENCY CONTACT LABOR AND DELIVERY . documented in this encounter Summary Purpose Family History No Family History Records FoundNo Family History Records FoundNo Family History Records Found History of Present Illness * Amaya Franco, LOUIE - ELAINAM - 12/23/2018 10:18 AM EDT Department of Obstetrics and Gynecology Labor and Delivery Post Progress Note SUBJECTIVE: Pt doing well today and is ready to go home. Pt is very comfortable with care OBJECTIVE: Vitals: BP 121/73 Pulse 75 Temp 98 F (36.7 C) (Temporal) Resp 18 Ht 5' 3 (1.6 m) Wt 214 lb (97.1kg) LMP 04/06/2018 (Approximate) SpO2 98% ? Unknown BMI 37.91 kg/m Patient Vitals for the past 24 hrs: BP Temp Temp src Pulse Resp 12/23/18 0148 121/73 98 F (36.7 C) Temporal 75 18 12/22/18 2040 134/83 98.5 F (36.9 C) Temporal 96 16 12/22/18 1223 133/79 97.9 F (36.6 C) Oral 94 16 ABDOMEN: normal shape, position and consistency GENITAL/URINARY: External Genitalia: General appearance; normal, Hair distribution; normal, Lesionsabsent Uterus: Size normal, Contour normal Breast:normal appearance, no masses or tenderness Cor: RRR no Murmurs Pulmonary: clear to auscultation anterior and posterior Extremities: no Clubbing cyanosis or ecchymosis DATA: ASSESSMENT : Principal Problem: Hypertension Active Problems: Herpes infection in Anemia affecting seventh 37 weeks gestation of Gestational diabetes mellitus (GDM) affecting seventh Pre-existing essential hypertension during in third trimester Elevated uric acid in blood Polyhydramnios affecting in third trimester Positive test for herpes simplex virus (HSV) antibody Plan: discharge home * Amaya Franco APRN - CNM - 12/22/2018 12:04 AM EDT Department of Obstetrics and Gynecology Progress Note SUBJECTIVE: Pt doing well. Pt is comfortable with epidural. OBJECTIVE: Vitals: 12/21/18 2343 12/21/18 2348 12/21/18 2353 12/21/18 2354 BP: 119/76 Pulse: 93 Resp: Temp: TempSrc: SpO2: 95% 95% 94% Weight: Height: heart rate: Baseline Heart Rate: 140 Accelerations: present Assisted Variability: moderate Decelerations: absent Contraction frequency: 2 minutes Membranes: leaking Cervix: Dilation: 4-5 Effacement: 70 Station: -1 Position: mid ASSESSMENT & PLAN: Continue care Pt placed on debbie documented in this encounter* Freya Yang RN - 10/25/2018 8:39 AM EDT Pt was seen for gestational diabetes education. She was diagnosed with a one- hour test with her result being 194. Her due date is 01/11/19and she is approximately 29 weeks. She has three children with no previous gestational diabetes. Denies any family history of gestational diabetes or Type 2 diabetes. She has started to monitor glucose and logbook reveals fasting range 76-82 and 2 hour post prandial 84-130. The 130 result was after eating pizza. There is currently no meal plan and no formal exercise plan. Provided pt with handout from the CDC Diabetes and :Gestational Diabetes . Education provided on what gestational diabetes is, risk factors, effects on her and baby, and the risk of developing Type 2 diabetes in the future. Discussed the importance of maintaining a healthy weight, stayingactive, and screening to prevent or delay Type 2 diabetes. Encouraged at least 30 minutes of exercise 5 days a week. Target glucose readings were given with fasting <95 and two hour post prandial <120. Reviewed signs, symptoms, causes, and treatment of hypoglycemia. She does report sometimes feeling some of these symptoms and reports the symptoms go away after eating a snack. She will checkher glucose if she has further symptoms now that she has a meter. All questions answered and pt is given office number to call with questions or concerns. documented in this encounter* Satnam Orellana RD, LD - 10/25/2018 8:32 AM EDT MNT provided for Gestational Diabetes Impaired nutrient utilization: carbohydrate related to Altered absorption or metabolism of nutrient: glucose as evidenced by New diagnosis of Gestational Diabetes Client data Ht: 63 Wt: 200.1# BMI: 33.1 (obese pregravid) Weight changes: 13.2# gain Pregravid Wt: 85 kg BMR: 1619 calories Est. total calorie needs: ~1800 Client overall goal for weight is for lower gains to remain within 11-20# weight gain goal r/t obesity in pregravid state. Current eating pattern includes multiple meals and snacks, but usually a skipped breakfast. Carbohydrate intakes do vary and exceed recommended quantities at times. Does choosewhole grain bread and appears to choose whole fruits often, but use of whole vegetables appear lessthan recommended quantities. Sometimes will drink regular pop and cranberry blend juices. FBS and 2hour pp glucose are running 73-130 mg/dl. Client presents for MNT today with self. Client was educated on carbohydrate counting for Gestational Diabetes with the following goals at meals and snacks: Breakfast: 30-45 grams Snack: 22 grams Lunch: 45 grams Snack: 22 grams Supper: 45 grams Bedtime Snack: 22 grams Client received information on limiting fat in diet to lessen undesired weight gains in , with goals of: Total Fat: 60 grams Saturated Fat: 14 grams Trans Fat: 0 grams daily Discussed and provided literature on: Carbohydrate counting, utilizing materials: Choose Your Foodsbook for meal planning, Food Label, MyPlate, sample eating pattern, nutrition guidelines,and individual carbohydrate counts (as noted above). Reinforced importance of measuring portions and reading food labels for Total Carbohydrate and Serving Sizes. Discussed importance of consistent meal timing and carbohydrate intakes throughout day. Reinforced elimination of juices, regular pop and very cautious use of dessert items. Demonstrated portion sizes for food items, reinforcing mealtime variety for all food groups. Encouraged client to look up nutrition information regarding fast food choices on internet or smartphone. Suggested more meal planning and packing foods for work day. Revisited Listeria risks with cold luncheon meats. Client goals: Add breakfast daily Measure food portions Read food labels for Total Carbohydrate and Serving Size Keep consistent meal timing for all meals and snacks Avoid excess fat, saturated fat and trans fats Use MyPlate as template for nutrition balance Look up nutrition facts for fast foods on internet Only choose sugar free drinks (avoid pop and juice) Look up restaurant and fast food information via computer or smartphone Continue to avoid Listeria prone products Expected compliance: Good. Robles was attentive and interactive during meeting and asked appropriate questions. She felt confident that she could abstain from pop and juice and seemed to grasp importance of total carbohydrate (not sugar) quantities for meals and snacks Client appears to be in an action phase of change. Recommend follow up as needed. RD name and phone number provided. Thank you for the referral. Education session duration: 70 minutes; ([phone]). Reminder to ordering Physician/Provider: Diabetes and CKD (non-dialysis) patients may have 2 hours of MNT education in subsequent years. Hours can be spread over any number of visits. documented in this encounter* Amaya Franco APRN - CNM - 12/04/2018 12:26 PM EDT Dx 34 weeks Hypertension NST reactive documented in this encounter Additional Source Comments Reason for Visit (unrecogniz ed section and content) Reason Comments Constipation Reason Comments Scheduled Induction Status Reason Specialty Diagnoses / Procedures Referre d By Contact Referred To Contact Diagnoses High blood pressure Amaya Franco APRN - CNM [address] [place] [address] [facility] Reason Comments Gestational Diabetes Status Reason Specialty Diagnoses / Procedures Referred By Contact Referred To Contact Open Specialty Services Required Diabetes Services Diagnoses Abnormal GTT (glucose tolerance test) Amaya Franco APRN - CNM [address] [place] [address] [facility] Diabetic Education [address] [place] [address] Reason Comments Hypertension INFORMATION SOURCE (unrecogn ized section and content) DATE CREATED AUTHOR 01/04/2020 [facility] DATE CREATED AUTHOR AUTHOR'S ORGANIZ ATION 07/03/2022 [facility] DATE CREATED AUTHOR AUTHOR'S ORGANIZ ATION 03/24/2023 [facility] Specialists [facility] FOR RECORDS PERTAINING TO PATIENTS WHO ARE OR HAVE BEEN ENROLLED IN A CHEMICAL DEPENDENCY/SUBSTANCEABUSE PROGRAM, SOME INFORMATION MAY BE OMITTED. This clinical summary was aggregated from multiple sources. Caution should be exercised in using it in the provision of clinical care. This summary normalizes information from multiple sources, and as a consequence, information in this document may materially change the coding, format and clinical context of patient data. In addition, data may be omitted in some cases. CLINICAL DECISIONS SHOULD BE BASED ON THE PRIMARY CLINICAL RECORDS. [employer] provides no warranty or guarantee of the accuracy or completeness of information in this document.
--- OUTSIDE RECORDS SUMMARY | 2023-03-24 21:22 | XMS_ITS | CCD ---
Author Name Unknown Address [address] [place] [address] Organization [facility] Care Team Providers Care Accounting Software Specialist Name Role Phone Unavailable Primary Care Provider UnavailKika Huitron Primary Care Provider [phone] Kika Guaman Primary Care Provider [phone] POOL, AMAYA E Referring Unavailable KIKA GUAMAN Primary Care Unavailable POOL, AMAYA E Referring Unavailable KIKA GUAMAN Primary Care Unavailable POOL, AMAYA E Referring Unavailable KIKA GUAMAN Primary Care Unavailable POOL, AMAYA E Referring Unavailable REYNA GUAMANA Larry Primary Care Unavailable POOL, AMAYA E Referring Unavailable KIKA GUAMAN Primary Care Unavailable Kika Guaman Primary Care Provider Katiuska Ho Unavailable Barbara Zhu Unavailable AICHHOLZ, FISHERIES DIRECTOR KIKA Primary Care Unavailable CAROLINA, DR JOSSY Tran Admitting Unavailbud FIGUEROA, DR JOSSY Tran Attending Unavailbud e ALLYSSA ., MR KAROL Consulting Unavailable AICHHOLZ, FISHERIES DIRECTOR KIKA Primary Care Unavailable DR VINCENZO FISCHER Admitting Unavailable LAWRENCE, DR VINCENZO Rahman Attending Unavailable DR VINCENZO FISCHER Consulting Unavailable AICHHOLZ, FISHERIES DIRECTOR KIKA Admitting Unavailable AICHHOLZ, FISHERIES DIRECTOR KIKA Attending Unavailable AICHHOLZ, FISHERIES DIRECTOR KIKA Primary Care Unavailable AICHHOLZ, FISHERIES DIRECTOR KIKA Consulting Unavailable RONALD JOHN Consulting Unavailable AICHHOLZ, FISHERIES DIRECTOR KIKA Admitting Unavailable AICHHOLZ, FISHERIES DIRECTOR KIKA Attending Unavailable AICHHOLZ, FISHERIES DIRECTOR KIKA Primary Care Unavailable AICHHOLZ, FISHERIES DIRECTOR KIKA Consulting Unavailable AICHHOLZ, FISHERIES DIRECTOR KIKA Admitting Unavailable AICHHOLZ, FISHERIES DIRECTOR KIKA Attending Unavailable AICHHOLZ, FISHERIES DIRECTOR KIKA Primary Care Unavailable AICHHOLZ, FISHERIES DIRECTOR KIKA Consulting Unavailable AICHHOLZ, FISHERIES DIRECTOR KIKA Admitting Unavailable AICHHOLZ, FISHERIES DIRECTOR KIKA Attending Unavailable AICHHOLZ, FISHERIES DIRECTOR KIKA Primary Care Unavailable AICHHOLZ, FISHERIES DIRECTOR KIKA Consulting Unavailable AICHHOLZ, FISHERIES DIRECTOR KIKA Primary Care Unavailable DR VINCENZO FISCHER [...] oral solution (1 source) alpha-Adrenergic Agonist, Uncompetitive Q-pobxjh-E-aspartat e Receptor Antagonist, Sigma-1 Agonist Start: 05-26-2021 [...] Oral, 2 TIMES DAILY, First dose on Lia 12/21/18 at 2100 lanolin 0.5 mg/mg topical [...] periods] Chronic Other aftercare (1 source) Other correction (current) drug therapy; Translations: [OTH SKILLED NURSING CURRENT DRUG THERAPY] Onset: 04-06-2022 Episodic Other [...] 13:03 Normal [facility] CULTURE URINEon 04-07-2022 CULTURE URINE Isolate 1 [...] Trimethoprim/Sulfam ethoxazole <=20 S F Normal The [facility] Comment on above: Performed By: #### C VDTB #### [facility] [address] [place] [address] Dr. Latanya Donis ER URINE PROFILEon 3 Bilirubin Ql (U) Negative Normal NEGATIVE The [facility] Comment on above: Performed By: #### Arti BOYLE UMICRO #### [facility] [address] [place] [address] Dr. Latanya Donis Clarity (U) CLEAR Normal CLEAR [facility] Comment on above: Performed By: #### Arti BOYLE UMICRO #### [facility] [address] [place] [address] Dr. Latanya Donis Color (U) BROWN Abnormal YELLOW [facility] Comment on above: Performed By: #### Arti BOYLE UMICRO #### [facility] [address] [place] [address] Dr. Latanya Donis ERUD A micrscopic examination will be performed if indicated. Normal [facility] Comment on above: Performed By: #### Arti BOYLE UMICRO #### [facility] [address] [place] [address] Dr. Latanya Donis Glucose Ql (U) Negative Normal NEGATIVE [facility] Comment on above: Performed By: #### Arti BOYLE UMICRO #### [facility] [address] [place] [address] Dr. Latanya Donis Hemoglobin Ql (U) LARGE Abnormal NEGATIVE The [facility] Comment on above: Performed By: #### Arti BOYLE UMICRO #### [facility] [address] [place] [address] Dr. Latanya Donis Ketones Ql (U) Negative Normal NEGATIVE [facility] Comment on above: Performed By: #### LEE LUNA #### [facility] [address] [place] [address] Dr. Latanya Donis LEUKOCYTES MODERATE Abnormal NEGATIVE [facility] Comment on above: Performed By: #### STEFANIA LUNARO #### [facility] [address] [place] [address] Dr. Latanya Donis Nitrite Ql (U) Positive Abnormal NEGATIVE [facility] Comment on above: Performed By: #### STEFANIA LUNARO #### [facility] [address] [place] [address] Dr. Latanya Donis pH (U) 5.5 [pH] Normal 5-9 [facility] Comment on above: Performed By: #### LEE LUNA #### [facility] [address] [place] [address] Dr. Latanya Donis Protein (U) [Mass/Vol] 100 mg/dL Abnormal NEGATIVE/ TRACE [facility] Comment on above: Performed By: #### LEE LUNA #### [facility] [address] [place] [address] Dr. Latanya Donis SPEC GRAVITY 1.025 Normal 1.005-<=1.025 [facility] Comment on above: Performed By: #### STEFANIA LUNARO #### [facility] [address] [place] [address] Dr. Latanya Donis UR MICRO IND INDICATED Normal [facility] Comment on above: Performed By: #### STEFANIA LUNARO #### [facility] [address] [place] [address] Dr. Latanya Donis Urobilinogen Qn (U) 1.0 {Hanny'U}/dL Normal 0.2 - 1. 0 [facility] Comment on above: Performed By: #### STEFANIA LUNARO #### [facility] [address] [place] [address] Dr. Latanya Donis URINE MICROSCOPIC ONLYon BACTERIA MODERATE Abnormal NONE SEEN [facility] Comment on above: Performed By: #### Arti BOYLE UMICRO #### [facility] [address] [place] [address] Dr. Latanya Donis Bacteria identified Cx Nom (U) INDICATED Normal [facility] Comment on above: Performed By: #### E RUR, UMICRO #### [facility] [address] [place] [address] Dr. Latanya Donis CAST NONE SEEN Normal NONE SEEN [facility] Comment on above: Performed By: #### E TAMAR, UMICRO #### [facility] [address] [place] [address] Dr. Latanya Donis Crystals LM Nom (Urine sed) NONE SEEN Normal NONE SEEN [facility] Comment on above: Performed By: #### E RULacey UMICRO #### [facility] [address] [place] [address] Dr. Latanya Donis Epithelial cells LM Ql (Urine sed) NONE SEEN Normal NONE SEEN /RARE [facility] Comment on above: Performed By: #### Arti BOYLE UMICRO #### [facility] [address] [place] [address] Dr. Latanya Donis MUCOUS NONE SEEN Normal NONE SEEN [facility] Comment on above: Performed By: #### Arti BOYLE, UMICRO #### [facility] [address] [place] [address] Dr. Latanya Donis RBC (U) [#/Vol] /uL Abnormal 0-2 [facility] Comment on above: Performed By: #### E TAMAR UMICRO #### [facility] [address] [place] [address] Dr. Latanya Donis WBC 5-10 Abnormal NONE SEEN [facility] Comment on above: Performed By: #### E TAMAR, UMICRO #### [facility] [address] [place] [address] FACIAL BONES W [...] DEEJAY REES Date: 2021-12-22 22:26 Normal [facility] CBC AUTO DIFFon 12-22-2021 BASO # 0.0 103/ul Normal 0.0-0.1 [facility] Comment on above: Performed By: #### C BC #### [facility] [address] [address] [address] Latanya Donis Basophils/100 WBC (Bld) 0.3 % Normal 0.2-2.0 [facility] Comment on above: Performed By: #### C BC #### [facility] [address] [address] [address] Latanya Donis EO # 0.1 103/ul Normal 0.0-0.7 [facility] Comment on above: Performed By: #### C BC #### [facility] [address] [address] [address] Latanya Donis Eosinophils/100 WBC (Bld) 0.6 % Critically low 0.9-7.0 [facility] Comment on above: Performed By: #### C BC #### [facility] [address] [address] [address] Latanya Donis Erythrocyte distribution width (RBC) [Ratio] 12.2 % Normal 11.0-15.0 [facility] Comment on above: Performed By: #### C BC #### [facility] [address] [place] [address] Dr. Latanya Donis Hematocrit (Bld) [Volume fraction] 37.1 % Normal 36.0-48.0 [facility] Comment on above: Performed By: #### C BC #### [facility] [address] [place] [address] Dr. Latanya Donis Hemoglobin (Bld) [Mass/Vol] 12.5 g/dL Normal 12.0-16.0 [facility] Comment on above: Performed By: #### C BC #### [facility] [address] [place] [address] Dr. Latanya Donis IG # 0.03 10e3/ul Normal 0.00-0.03 [facility] Comment on above: Performed By: #### C BC #### [facility] [address] [place] [address] Dr. Latanya Donis IG % 0.3 % Normal 0.0-0.5 [facility] Comment on above: Performed By: #### C BC #### [facility] [address] [place] [address] Dr. Latanya Donis LYMPH # 1.6 103/ul Normal 1.2-3.8 [facility] Comment on above: Performed By: #### C BC #### [facility] [address] [place] [address] Dr. Latanya Donis Lymphocytes/100 WBC (Bld) 17.1 % Critically low 20.5-60.0 [facility] Comment on above: Performed By: #### C BC #### [facility] [address] [place] [address] Dr. Latanya Donis MANUAL DIFF REQ NO Normal [facility] Comment on above: Performed By: #### C BC #### [facility] [address] [address] [address] Latanya Donis MCH (RBC) [Entitic mass] 29.3 pg Normal 26.7-34.0 [facility] Comment on above: Performed By: #### C BC #### [facility] [address] [place] [address] Dr. Latanya Donis MCHC (RBC) [Mass/Vol] 33.7 g/dL Normal 29.9-35.2 [facility] Comment on above: Performed By: #### C BC #### [facility] [address] [place] [address] Dr. Latanya Donis MCV (RBC) [Entitic vol] 86.9 fL Normal 81.0-99.0 [facility] Comment on above: Performed By: #### C BC #### [facility] [address] [place] [address] Dr. Latanya Donis MONO # 0.8 103/ul Normal 0.3-0.8 [facility] Comment on above: Performed By: #### C BC #### [facility] [address] [place] [address] Dr. Latanya Donis Monocytes/100 WBC (Bld) 8.2 % Normal 1.7-12.0 [facility] Comment on above: Performed By: #### C BC #### [facility] [address] [place] [address] Dr. Latanya Donis NEUT # 7.0 103/ul Critically high 1.4-6.5 [facility] Comment on above: Performed By: #### C BC #### [facility] [address] [place] [address] Dr. Latanya Donis Neutrophils/100 WBC (Bld) 73.5 % Normal 43.0-75.0 [facility] Comment on above: Performed By: #### C BC #### [facility] [address] [place] [address] Dr. Latanya Donis Platelet mean volume (Bld) [Entitic vol] 11.4 fL Normal 9.5-13.5 [facility] Comment on above: Performed By: #### C BC #### [facility] [address] [place] [address] Dr. Latanya Donis PLT 266 103/ul Normal 150-450 [facility] Comment on above: Performed By: #### C BC #### [facility] [address] [place] [address] Dr. Latanya Donis RBC 4.27 106/ul Normal 4.20-5.40 [facility] Comment on above: Performed By: #### C BC #### [facility] [address] [place] [address] Dr. Latanya Donis WBC 9.5 103/ul Normal 4.0-11.0 [facility] Comment on above: Performed By: #### C BC #### [facility] [address] [place] [address] Dr. Latanya Donis CULTURE BLOODon 12-22-2021 Microscopic examination of blood, culture Culture Observations: NO GROWTH AT 5 DAYS. Normal [facility] Comment on above: Performed By: #### C VDTBH #### [facility] [address] [place] [address] Dr. Latanya Donis Microscopic examination of blood, culture Culture Observations: NO GROWTH AT 5 DAYS. Normal [facility] Comment on above: Performed By: #### C VDTBH #### [facility] [address] [place] [address] Dr. Latanya Donis PROF CHEM 8 (BAS METB)on Anion gap [Moles/Vol] 12.1 mmol/L [facility] Comment on above: Performed By: #### B MP #### [facility] [address] [place] [address] Dr. Latanya Donis Calcium [Mass/Vol] 8.9 mg/dL Normal 8.5-10.1 [facility] Comment on above: Performed By: #### B MP #### [facility] [address] [place] [address] Dr. Latanya Donis Chloride [Moles/Vol] 107 mmol/L Normal 98-107 [facility] Comment on above: Performed By: #### B MP #### [facility] [address] [address] [address] Latanya Donsi CO2 [Moles/Vol] 25.3 mmol/L Normal 21.0-32.0 [facility] Comment on above: Performed By: #### B MP #### [facility] [address] [address] [address] Latanya Donis Creatinine [Mass/Vol] 0.99 mg/dL Normal 0.55-1.02 [facility] Comment on above: Performed By: #### B MP #### [facility] [address] [address] [address] Latanya Donis EGFR-AF ST LUCIAN >60 Normal >=60 [facility] Comment on above: Performed By: #### B MP #### [facility] [address] [address] [address] Latanya Donis EGFR-NON AF [facility] LUCIAN >60 Normal >=60 [facility] Comment on above: Performed By: #### B MP #### [facility] [address] [address] [address] Latanya Donis Glucose [Mass/Vol] 94 mg/dL Normal 74-106 [facility] Comment on above: Performed By: #### B MP #### [facility] [address] [address] [address] Latanya Donis Potassium [Moles/Vol] 3.4 mmol/L Critically low 3.5-5.1 [facility] Comment on above: Performed By: #### B MP #### [facility] [address] [address] [address] Latanya Donis Sodium [Moles/Vol] 141 mmol/L Normal 136-145 [facility] Comment on above: Performed By: #### B MP #### [facility] [address] [address] [address] Latanya Donis Urea nitrogen [Mass/Vol] 11.0 mg/dL Normal 7.0-18.0 [facility] Comment on above: Performed By: #### B MP #### [facility] [address] [address] [address] Latanya Donis Urea nitrogen/Creatinine [Mass ratio] 11.1 mg/mg Normal [facility] Comment on above: Performed By: #### B MP #### [facility] [address] [address] [address] Latanya Donis CHLAMYDIA/GONOCOCCUS GERALDINE (SW AB/URINE/PAPon 10-13-2021 Chlamydia trachomatis, GERALDINE Negative Normal Negative [facility] Comment on above: Performed By: #### C VDTBH #### [facility] [address] [address] [address] Latanya Donis Neisseria gonorrhoeae, GERALDINE Negative Normal Negative [facility] Comment on above: Performed By: #### C VDTBH #### [facility] [address] [place] [address] Dr. Latanya Donis HEPATITIS PANEL, ACUTEon HBsAg Screen Negative Normal Negative [facility] Comment on above: Performed By: #### H EPACUT #### [facility] [address] [place] [address] Dr. Latanya Donis HCV AB <0.1 Normal 0.0-0.9 [facility] Comment on above: Performed By: #### H EPACUT #### [facility] [address] [place] [address] Dr. Latanya Donis Hep A Ab, IgM Negative Normal Negative [facility] Comment on above: Performed By: #### H EPACUT #### [facility] [address] [place] [address] Dr. Latanya Donis Hep B Core Ab, IgM Negative Normal Negative [facility] Comment on above: Performed By: #### H EPACUT #### [facility] [address] [address] [address] Latanya Donis Interpretation: Comment Normal [facility] Comment on above: Result Comment: Nega tive Not infected with HCV, unless recent infection is suspected or other evidence exists to indicate HCV infection. Performed By: #### H EPACUT #### [facility] [address] [place] [address] Dr. Latanya Donis HIV 1 AND 2 WITH REFLEXon HIV Screen 4th Generation wRfx Non-Reactive Normal Non Reactive [facility] Comment on above: Result Comment: HIV Negative HIV-1/HIV-2 antibodies and HIV-1 p24 antigen were NOT detected. There is no laboratory evidence of HIV infection. Performed By: #### H IV12 #### [facility] [address] [place] [address] Dr. Latanya Donis RPR QUANTon 10-10-2021 Rapid Plasma Reagin, Quant Non-Reactive Normal NonRea<1:1 [facility] Comment on above: Result Comment: Plea se Note: This test does not meet current guidelines for screening and diagnosis of syphilis. This test is intended for following treatment response in patients being treated for syphilis infection. To screen for syphilis infection, a reflex cascade that includes both RPR and a treponema-specific assay should be utilized, such as Treponema pallidum (Syphilis) Screening Pierce (784256) or Rapid Plasma Reagin (RPR) Test With Reflex to Quantitative RPR and Confirmatory Treponema pallidum Antibodies (545724). Performed By: #### C VDTBH #### [facility] [address] [address] [address] Latanya Donis VAGINITIS/VAGINOSIS DNA PROB Kirill 10-10-2021 Delmy species Negative Normal Negative [facility] Comment on above: Performed By: #### V AGINT #### [facility] [address] [place] [address] Dr. Latanya Donis Gardnerella vaginalis Negative Normal Negative [facility] Comment on above: Performed By: #### V AGINT #### [facility] [address] [place] [address] Dr. Latanya Donis Trichomonas vaginalis Negative Normal Negative [facility] Comment on above: Performed By: #### V AGINT #### [facility] [address] [place] [address] Dr. Latanya Donis Covid-19 PCR (CVDTB)on SARS-CoV-2 (COVID-19) RNA GERALDINE+probe Ql (Unsp spec) Detected Critically abnormal NOT DETECTED [facility] Comment on above: Result Comment: This test is not yet approved or cleared by the [place] FDA. When there are no FDA-approved or cleared tests available, and other criteria are met, FDA can make tests available under an emergency access mechanism called an Emergency Use Authorization (EUA). The EUA for this test is supported by the Loss Prevention Manager of Health and Human Service's declaration that [...] used). Performed By: #### C VDTBH #### [facility] [address] [place] [address] Dr. Latanya Donis INSULINon 09-18-2021 Insulin 6.9 uIU/mL Normal 2.6-24.9 [facility] Comment on above: Performed By: #### I NSULIN #### [facility] [address] [place] [address] Dr. Latanya Donis FREE T4on 09-16-2021 Free T4 [Mass/Vol] 0.79 ng/dL Normal 0.76-1.46 [facility] Center Comment on above: Performed By: #### C VDTB #### [facility] [address] [place] [address] Dr. Latanya Donis GLYCOHEMOGLOBIN A1Con 2021 ADA RECOMMENDATION SEE BELOW Normal [facility] Comment on above: Result Comment: ADA RECOMMENDED LIMIT 4.0 - 6.0 ADA THERAPEUTIC TARGET < 7.0 ACTION SUGGESTED > 7.0 Performed By: #### A 1C #### [facility] [address] [place] [address] Dr. Latanya Donis Glucose [Mass/Vol] 91 mg/dL Normal [facility] Comment on above: Performed By: #### A 1C #### [facility] [address] [place] [address] Dr. Latanya Donis HbA1c (Bld) [Mass fraction] 4.8 % Normal 4.5-6.2 [facility] Comment on above: Performed By: #### A 1C #### [facility] [address] [place] [address] Dr. Latanya Donis PROF CHEM 8 (BAS METB)on Anion gap [Moles/Vol] 10.0 mmol/L Normal [facility] Comment on above: Performed By: #### C VDTBH #### [facility] [address] [place] [address] Dr. Latanya Donis Calcium [Mass/Vol] 9.8 mg/dL Normal 8.5-10.1 [facility] Comment on above: Performed By: #### C VDTBH #### [facility] [address] [place] [address] Dr. Latanya Donis Chloride [Moles/Vol] 103 mmol/L Normal 98-107 [facility] Comment on above: Performed By: #### C VDTBH #### [facility] [address] [place] [address] Dr. Latanya Donis CO2 [Moles/Vol] 30.4 mmol/L Normal 21.0-32.0 [facility] Comment on above: Performed By: #### C VDTBH #### [facility] [address] [place] [address] Dr. Latanya Donis Creatinine [Mass/Vol] 0.92 mg/dL Normal 0.55-1.02 [facility] Comment on above: Performed By: #### C VDTBH #### [facility] [address] [place] [address] Dr. Latanya Donis EGFR-AF ST LUCIAN >60 Normal >=60 [facility] Comment on above: Performed By: #### C VDTBH #### [facility] [address] [place] [address] Dr. Latanya Donis EGFR-NON AF ST LUCIAN >60 Normal >=60 [facility] Comment on above: Performed By: #### C VDTBH #### [facility] [address] [place] [address] Dr. Latanya Donis Glucose [Mass/Vol] 93 mg/dL Normal 74-106 [facility] Comment on above: Performed By: #### C VDTBH #### [facility] [address] [address] [address] Latanya Donis Potassium [Moles/Vol] 4.4 mmol/L Normal 3.5-5.1 [facility] Comment on above: Performed By: #### C VDTBH #### [facility] [address] [place] [address] Dr. Latanya Donis Sodium [Moles/Vol] 139 mmol/L Normal 136-145 [facility] Comment on above: Performed By: #### C VDTBH #### [facility] [address] [place] [address] Dr. Latanya Donis Urea nitrogen [Mass/Vol] 11.0 mg/dL Normal 7.0-18.0 [facility] Comment on above: Performed By: #### C VDTBH #### [facility] [address] [place] [address] Dr. Latanya Donis Urea nitrogen/Creatinine [Mass ratio] 12.0 mg/mg Normal [facility] Comment on above: Performed By: #### C VDTBH #### [facility] [address] [place] [address] Dr. Latanya Donis TSHon 09-16-2021 TSH 1.496 uIU/mL Normal 0.358-3.740 [facility] Comment on above: Performed By: #### C VDTBH #### [facility] [address] [place] [address] Dr. Latanya Donis COVID Quick Testingon 2020 Result Negative Digitiliti Other COVID Quick Testingon 2020 Result Negative Digitiliti Other Chlamydia/GC DNA, Uron 01-03 Chlamydia Probe, Ur Negative Normal NEG [facility] Comment on above: Result Comment: CHLA MYDIA [...] target. Performed By: #### U CGP #### [address] [address] [employer] Driver: Ezio Calvillo MD Gonorrhea Probe, Ur Negative Normal NEG [facility] Comment on above: Result Comment: NEIS SERIA [...] target. Performed By: #### U CGP #### [address] [address] [employer]: Ezio Calvillo MD Cult,Urineon 01-04-2020 Cult,Urine Specimen Description .CLEAN CATCH URINE Special Requests NOT REPORTED Culture NO SIGNIFICANT GROWTH Report Status FINAL 01/04/2020 Normal [facility] Comment on above: Performed By: #### P PPVP #### [address] [address] [employer]: Ezio Calvillo MD Hemoglobin A1Con 01-04-2020 HbA1c (Bld) [Mass fraction] 4.8 % Normal 4.0-6.0 [facility] Comment on above: Performed By: #### A HCV, GLYHGB, HIVCMB #### [address] [address] [employer]: Ezio Calvillo MD HbA1c (Bld) [Mass fraction] 91 mg/dL Normal [facility] Comment on above: Result Comment: The ADA and AACC recommend providing the estimated average glucose result to permit better patient understanding of their HBA1c result. Performed By: #### A HCV, GLYHGB, HIVCMB #### [address] [place] [address] [employer]: Ezio Calvillo MD HIV Ag/Abon 01-03-2020 HIV Ag/Ab NONREACTIVE Normal [facility] Comment on above: Result Comment: No l aboratory evidence of HIV infection. If acute HIV infection is suspected, consider testing for HIV-1 RNA. Performed By: #### A HCV, GLYHGB, HIVCMB #### [address] [address] [employer]: Ezio Calvillo MD Hep C Abon 01-03-2020 Hep C Ab NONREACTIVE Normal [facility] Comment on above: Result Comment: The [...] By: #### A HCV, GLYHGB, HIVCMB #### [address] [address] [employer]: Ezio Calvillo MD Profileon 0 T.pallidum Ab Screen NONREACTIVE Normal [facility] Comment on above: Result Comment: T. pallidum antibodies are not detected. There is no serological evidence of infection with T. pallidum (early primary syphilis cannot be excluded). Retest in 2-4 weeks if syphilis is clinically suspect. Performed By: #### P RENAT #### [facility] [employer] [address] [place] [address] [employer]: Ezio Calvillo MD [facility] [address] [place] [address] [employer] Driver: Chase Glez MD Hep B Surf Ag NONREACTIVE Normal [facility] Comment on above: Performed By: #### P RENAT #### [address] [address] [employer] Driver: Ezio Calvillo MD [facility] [address] [place] [address] [employer] Driver: Chase Glez MD Rubella Ab, IgG 68.2 IU/mL Normal [facility] Comment on above: Result Comment: REFERENCE RANGE: <5.0 NON-REACTIVE (non-immune) 5.0 TO 9.9 EQUIVOCAL >=10.0 REACTIVE (immune) Performed By: #### P RENAT #### [facility] [address], [place] [phone] [employer]: Ezio Calvillo MD [facility] [address] [place] [address] [employer]: Chase Glez MD HIV Screenon 01-02-2020 HIV Ag/Ab NONREACTIVE NONREACTIVE [place], [place] Comment on above: No laboratory eviden ce of HIV infection. If acute HIV infection is suspected, consider testing for HIV-1 RNA. Hepatitis C Antibodyon 01-01 Hepatitis C Ab NONREACTIVE NONREACTIVE [place], [place] Comment on above: The hepatitis C [...] Ion 020 Basophils (Bld) [#/Vol] 0.03 10*3/uL [place] Basophils/100 WBC (Bld) 0 % 0 - 2 % [place] Differential Type NOT REPORTED [place] Eosinophils (Bld) [#/Vol] 0.12 10*3/uL [place] Eosinophils/100 WBC (Bld) 2 % 1 - 4 % [place] Erythrocyte distribution width (RBC) [Ratio] 12.4 % 11.8 - 14.4 % [place] Hematocrit (Bld) [Volume fraction] 41.5 % 36.3 - 47.1 % [place] Hemoglobin (Bld) [Mass/Vol] 13.5 g/dL 11.9 - 15.1 g/dL [place] Hepatitis B Surface Ag NONREACTIVE NONREACTIVE [place] Immature granulocytes (Bld) [#/Vol] 0 % 0 [place] Immature granulocytes (Bld) [#/Vol] 10*3/uL [place] Lymphocytes (Bld) [#/Vol] 2.14 10*3/uL [place] Lymphocytes/100 WBC (Bld) 28 % 24 - 43 % [place] MCH (RBC) [Entitic mass] 28.9 pg 25.2 - 33.5 pg [place] MCHC (RBC) [Mass/Vol] 32.5 g/dL 28.4 - 34.8 g/dL [place] MCV (RBC) [Entitic vol] 88.9 fL 82.6 - 102.9 fL [place] Monocytes (Bld) [#/Vol] 0.63 10*3/uL [place] Monocytes/100 WBC (Bld) 8 % 3 - 12 % [place] Platelet mean volume (Bld) [Entitic vol] 12.3 fL 8.1 - 13.5 fL [place] Platelets (Bld) [#/Vol] NOT REPORTED [place] Platelets (Bld) [#/Vol] 213 10*3/uL [place] RBC (Bld) [#/Vol] 4.67 10*6/uL 3.95 - 5.1 1 m/uL [place] RBC morphology finding Nom (Bld) NOT REPORTED [place] Rubella virus IgG Ql (S) 68.2 IU/mL [place] Comment on above: REFERENCE RANGE: <5.0 NON-REACTIVE (non-immune) 5.0 TO 9.9 EQUIVOCAL >=10.0 REACTIVE (immune) Segmented neutrophils/100 WBC (Bld) 62 % 36 - 65 % [place] Segs Absolute 4.69 [place] T. pallidum, IgG NONREACTIVE NONREACTIVE [place] Comment on above: T. pallidum antibodies are not detected. There is no serological evidence of infection with T. pallidum (early primary syphilis cannot be excluded). Retest in 2-4 weeks if syphilis is clinically suspect. WBC (Bld) [#/Vol] 7.6 10*3/uL [place] WBC (Bld) [#/Vol] 0.0 10*3/uL 0.0 per 10 0 WBC [place] WBC Morphology NOT REPORTED [place], [place] TYPE AND SCREENon 1 03-03-2019 ABO/Rh Negative [place] Profileon 0 Abs. Basophil 0.03 k/uL Normal 0.00-0.20 [facility] Comment on above: Performed By: #### P RENAT #### [place] [address] [employer]: Ezio Calvillo MD [address] [place] [address] [employer]: Chase Glez MD Abs.Imm.Granulocyte <0.03 Normal 0.00-0.30 [facility] Comment on above: Performed By: #### P RENAT #### [place] [id number] [employer]: Ezio Calvillo MD [facility] [address] [place] [address] [place] [address] [employer] Driver: Chase Glez MD Abs.Neutrophil (Seg) 4.69 k/uL Normal 1.50-8.10 [facility] Comment on above: Performed By: #### P RENAT #### [place] [address] [employer]: Ezio Calvillo MD [facility] [address] [place] [address] [place] [phone] [employer]: Chase Glez MD Basophils/100 WBC (Bld) 0 % Normal 0-2 [facility] Comment on above: Performed By: #### P RENAT #### [address] [address] [employer]: Ezio Calvillo MD [address] [place] [phone] [employer]: Chase Glez MD Eosinophils (Bld) [#/Vol] 0.12 10*3/uL Normal 0.00-0.44 [facility] Comment on above: Performed By: #### P RENAT #### [address] [address] [employer]: Ezio Calvillo MD [address] [place] [phone] [employer]: Chase Glez MD Eosinophils/100 WBC (Bld) 2 % Normal 1-4 [facility] Comment on above: Performed By: #### P RENAT #### [address] [address] [employer] Driver: Ezio Calvillo MD [address] [place] [phone] [employer]: Chase Glez MD Erythrocyte distribution width (RBC) [Ratio] 12.4 % Normal 11.8-14.4 [facility] Comment on above: Performed By: #### P RENAT #### [address] [address] [employer] Driver: zEio Calvillo MD [address] [place] [phone] [employer]: Chase Glez MD Hematocrit (Bld) [Volume fraction] 41.5 % Normal 36.3-47.1 [facility] Comment on above: Performed By: #### P RENAT #### [address] [address] [employer] Driver: Ezio Calvillo MD [address] [place] [phone] [employer]: Chase Glez MD Hemoglobin (Bld) [Mass/Vol] 13.5 g/dL Normal 11.9-15.1 [facility] Comment on above: Performed By: #### P RENAT #### [address] [address] [employer]: Ezio Calvillo MD [address] [place] [phone] [employer]: Chase Glez MD Immature granulocytes (Bld) [#/Vol] 0 % Normal 0 [facility] Comment on above: Performed By: #### P RENAT #### [address] [address] [employer]: Ezio Calvillo MD [address] [place] [phone] [employer]: Chase Glez MD Lymphocytes (Bld) [#/Vol] 2.14 10*3/uL Normal 1.10-3.70 [facility] Comment on above: Performed By: #### P RENAT #### [address] [address] [employer]: Ezio Calvillo MD [address] [place] [address] [employer]: Chase Glez MD Lymphocytes/100 WBC (Bld) 28 % Normal 24-43 [facility] Comment on above: Performed By: #### P RENAT #### [address] [address] [employer]: Ezio Calvillo MD [address] [place] [phone] [employer] Driver: Chase Glez MD MCH (RBC) [Entitic mass] 28.9 pg Normal 25.2-33.5 [facility] Comment on above: Performed By: #### P RENAT #### [address] [address] [employer]: Ezio Calvillo MD [facility] [address] [place] [address] Dr[address] [place] [phone] [employer]: Chase Glez MD MCHC (RBC) [Mass/Vol] 32.5 g/dL Normal 28.4-34.8 [facility] Comment on above: Performed By: #### P RENAT #### [address] [address] [employer]: Ezio Calvillo MD [address] [place] [address] [employer] Driver: Chase Glez MD MCV (RBC) [Entitic vol] 88.9 fL Normal 82.6-102.9 [facility] Comment on above: Performed By: #### P RENAT #### [address] [address] [employer] Driver: Ezio Calvillo MD [address] [place] [phone] [employer]: Chase Glez MD Monocytes (Bld) [#/Vol] 0.63 10*3/uL Normal 0.10-1.20 [facility] Comment on above: Performed By: #### P RENAT #### [address] [address] [employer]: Ezio Calvillo MD [address] [place] [phone] [employer]: Chase Glez MD Monocytes/100 WBC (Bld) 8 % Normal 3-12 [facility] Comment on above: Performed By: #### P RENAT #### [address] [address] [employer]: Ezio Calvillo MD [address] [place] [phone] [employer]: Chase Glez MD Neutrophil (Seg) 62 % Normal 36-65 [facility] Comment on above: Performed By: #### P RENAT #### [address] [place] [address] [place] [address] [employer]: Ezio Calvillo MD [facility] [address] [place], [place] [phone] [employer]: Chase Glez MD NRBC Automated 0.0 per 100 WBC Normal 0.0 [facility] Comment on above: Performed By: #### P RENAT #### [address] [address] [employer]: Ezio Calvillo MD [facility] [address] [place] [address] Dr[address] [place] [phone] [employer]: Chase Glez MD Platelet mean volume (Bld) [Entitic vol] 12.3 fL Normal 8.1-13.5 [facility] Comment on above: Performed By: #### P RENAT #### [address] [address] [employer]: Ezio Calvillo MD [facility] [address] [place] [address] Dr[address] [place] [phone] [employer]: Chase Glez MD Platelets (Bld) [#/Vol] 213 10*3/uL Normal 138-453 [facility] Comment on above: Performed By: #### P RENAT #### [address] [address] [employer] Driver: Ezio Calvillo MD [facility] [address] [place] [phone] [employer] Driver: Chase Glez MD RBC (Bld) [#/Vol] 4.67 10*6/uL Normal 3.95-5.11 [facility] Comment on above: Performed By: #### P RENAT #### [address] [address] [employer]: Ezio Calvillo MD [address] [place] [address] [employer]: Chase Glez MD WBC (Bld) [#/Vol] 7.6 10*3/uL Normal 3.5-11.3 [facility] Comment on above: Performed By: #### P RENAT #### [address] [address] [employer]: Ezio Calvillo MD [address] [place] [phone] [employer]: Chase Glez MD Auto Diff Performed NOT REPORTED Normal [facility] Comment on above: Performed By: #### P RENAT #### [address] [address] [employer] Driver: Ezio Calvillo MD [address] [place] [address] [employer] Driver: Chase Glez MD Platelets (Bld) [#/Vol] NOT REPORTED Normal [facility] Comment on above: Performed By: #### P RENAT #### [address] [address] [employer]: Ezio Calvillo MD [address] [place] [address] [employer]: Chase Glez MD RBC morphology finding Nom (Bld) NOT REPORTED Normal [facility] Comment on above: Performed By: #### P RENAT #### [address] [address] [employer]: Ezio Calvillo MD [address] [place] [address] [employer] Driver: Chase Glez MD WBC Morphology NOT REPORTED Normal [facility] Comment on above: Performed By: #### P RENAT #### [address] [id number] [employer]: Ezio Calvillo MD [facility] [address] [place], [place] [phone] [employer]: Chase Glez MD Type + Scrnon 01-01 Type + Scrn Negative [facility] Comment on above: Performed By: #### P RTYS #### [facility] [address] [place], [place] [phone] [employer]: Chase Glez MD Toxicology Scree, Urineon Amphetamine(s),Ur Negative Normal [facility] Comment on above: Performed By: #### C PDAU #### [facility] [address] [place], [place] [phone] [employer]: Chase Glez MD Barbiturate(s),Ur Negative Normal NEG [facility] Comment on above: Performed By: #### C PDAU #### [facility] [address] [place], [place] [phone] [employer]: Chase Glez MD Benzodiazepine(s) Negative Normal [facility] Comment on above: Performed By: #### C PDAU #### [facility] [address] [place], [place] [phone] [employer]: Chase Glez MD Buprenorphrine, Ur Negative Normal [facility] Comment on above: Performed By: #### C PDAU #### [facility] [address] [place], [place] [phone] [employer]: Chase Glez MD Cannabinoid(s),Ur Negative Normal [facility] Comment on above: Performed By: #### C PDAU #### [facility] [address] [place], [place] [phone] [employer]: Chase Glez MD Cocaine Metabolite Negative Normal [facility] Comment on above: Performed By: #### C PDAU #### [facility] [address] [place], [place] [phone] [employer]: Chase Glez MD Methadone Ql (U) Negative Normal NEG [facility] Comment on above: Performed By: #### C PDAU #### [facility] [address] [place], [place] [phone] [employer] Driver: Chase Glez MD Methamphetamine, Ur Negative Normal NEG [facility] Comment on above: Performed By: #### C PDAU #### [facility] [address] [place], [place] [phone] [employer]: Chase Glez MD Opiate(s), Ur Negative Normal NEG [facility] Comment on above: Performed By: #### C PDAU #### [facility] [address] [place], [place] [phone] [employer] Driver: Chase Glez MD Oxycodone, Urine Negative Normal NEG [facility] Comment on above: Performed By: #### C PDAU #### [facility] [address] [place], [place] [phone] [employer]: Chase Glez MD Phencyclidine, Ur Negative Normal [facility] Comment on above: Performed By: #### C PDAU #### [facility] [address] [place], [place] [phone] [employer]: Chase Glez MD Propoxyphene,Urine Negative Normal NEG [facility] Comment on above: Performed By: #### C PDAU #### [facility] [address] [place] [address] [employer]: Chase Glez MD Tricyclic antidepressants Screen Ql (U) Negative Normal [facility] Comment on above: Result Comment: Drug screen results are to be used for medical purposes only. All positive results are unconfirmed. Testing for employment or legal uses should be sent to a reference laboratory for confirmation. Performed By: #### C PDAU #### [facility] [address] [place], [place] [phone] [employer]: Chase Glez MD Interpretive Info NOT REPORTED Normal [facility] Comment on above: Performed By: #### C PDAU #### [facility] [address] [place], [place] [phone] [employer] Driver: Chase Glez MD MDMA, Urine NOT REPORTED Normal NEG [facility] Comment on above: Performed By: #### C PDAU #### [facility] [address] [place] [address] [employer] Driver: Chase Glez MD Urine Drug Screen, [facility] 01-02-2020 Amphetamine Screen, Ur Negative NEGATIVE [facility] [place] Barbiturate Screen, Ur Negative NEGATIVE [facility] [place] Benzodiazepine Screen, Urine Negative NEGATIVE [facility] [place] Buprenorphine Urine Negative NEGATIVE [facility] [place] Cannabinoid Scrn, Ur Negative NEGATIVE [facility] [place] Cocaine Metabolite, Urine Negative NEGATIVE [facility] [place] MDMA, Urine NOT REPORTED NEGATIVE [facility] [place] [place] Methadone Screen, [...] 10-13 Chlamydia Probe, TP Negative Normal NEG [facility] Comment on above: Result Comment: CHLA MYDIA [...] target. Performed By: #### P PPVP #### [employer] [address] [place] [phone] [employer]: Ezio Calvillo MD Gonorrhea Probe, TP Negative Normal NEG [facility] Comment on above: Result Comment: NEIS SERIA [...] target. Performed By: #### P PPVP #### [employer] [address] [place] [address] [phone] [employer]: Ezio Calvillo MD Cytologyon 10-11-2019 Cytology (NOTE) INTERPRETATION Cervical material, (ThinPrep vial, Imaging-assisted review): Specimen Adequacy: Satisfactory for evaluation. -Endocervical/trans formation zone component is absent. Descriptive Diagnosis: Negative for intraepithelial lesion or malignancy. Shift in rebecca suggestive of bacterial vaginosis. Plumbing Engineer: WILLIAM Mendes(ASCP) Electronically Signed Out vaibhav/10/17/2019 Source: 1: Cervical material, (ThinPrep vial, Imaging-assisted review) Clinical History Oral Contraceptives Z01.419 Routine latcher exam without abnormal findings High Risk HPV DNA testing is requested if the diagnosis is ASC-US LMP: 09/17/2019 GYNECOLOGIC CYTOLOGY REPORT Patient Name: ROBLES YEN. [facility] Rec: [id number] Path Number: [id number] [facility] ANATOMIC PATHOLOGY [address] [place] [id number] [facility] Comment on above: Performed By: #### P PPVP #### [employer] [address] [place] [address] [phone] [employer]: Ezio Calvillo MD HCG, Quanton 02-06-2019 HCG, Quant <1 Normal <5 [facility] Comment on above: Result Comment: Non-preg premeno <=5 Postmeno <=8 Male <=3 If HCG results do not concur with clinical observations, additional testing to confirm results is recommended. Elevated results not associated with may be found in patients with other diseases such as tumors of the germ cells (testis, ovaries, etc.), bladder, pancreas, stomach, lungs, and liver. Performed By: #### B HCG #### [facility] [address] [place] [address] [employer] Driver: Chase Glez MD hCG, Quantitative, Ordered By: Amaya Franco on 02-06-2019 hCG Quant <1 <5 IU/L [facility] Work Phone: Comment on above: Non-preg [...] 19 2 Hr 139 mg/dL Normal 65-139 [facility] Comment on above: Performed By: #### G LU2HR #### [facility] [address] [place], [place] [id number] [employer] Driver: Chase Glez MD 1 Hr 143 mg/dL Normal 65-184 [facility] Comment on above: Performed By: #### G LU2HR #### [facility] [address] [place] [address] [employer] Driver: Chase Glez MD Fasting 91 mg/dL Normal 65-99 [facility] Comment on above: Performed By: #### G LU2HR #### [facility] [address] [place] [address] [employer] Driver: Chase Glez MD Glucose [Mass/Vol] 75 g Normal [facility] Comment on above: Performed By: #### G LU2HR #### [facility] [address] [place] [address] [employer] Driver: Chase Glez MD Glucose Tolerance, 2 Hrson 1 03-10-2018 Glucose [Mass/Vol] 75 g [place] Glucose [Mass/Vol] 91 mg/dL 65 - 99 mg/dL [place] Glucose, GTT - 1 Hour 143 mg/dL 65 - 184 mg/dL [place] Glucose, GTT - 2 Hour 139 mg/dL 65 - 139 mg/dL [place], [place] Glucose, Whole Bloodon 01-08 Glucose [Mass/Vol] 88 mg/dL 74 - 100 mg/dL [place], [place] Glucose, Whole Bloodon 12-22 Glucose [Mass/Vol] 104 mg/dL High 74 - 100 mg/dL [place] Interpretation and review of laboratory results Abnormal [place], [place] APTTon 12-21-2018 aPTT Coag (Bld) [Time] 25.3 s [place] CBC auto differentialon 11-23 Basophils (Bld) [#/Vol] 10*3/uL [place] Basophils/100 WBC (Bld) 0 % 0 - 2 % [place] Differential Type NOT REPORTED [place] Eosinophils (Bld) [#/Vol] 0.10 10*3/uL [place] Eosinophils/100 WBC (Bld) 1 % 1 - 4 % [place] Erythrocyte distribution width (RBC) [Ratio] 14.2 % 11.8 - 14.4 % [place] Hematocrit (Bld) [Volume fraction] 29.5 % Low 36.3 - 47.1 % [place] Hemoglobin (Bld) [Mass/Vol] 9.8 g/dL Low 11.9 - 15.1 g/dL [place], [place] Immature granulocytes (Bld) [#/Vol] 1 % High 0 [place] Immature granulocytes (Bld) [#/Vol] 0.10 10*3/uL [place] Interpretation and review of laboratory results Abnormal [place] Lymphocytes (Bld) [#/Vol] 1.31 10*3/uL [place] Lymphocytes/100 WBC (Bld) 18 % Low 24 - 43 % [place] MCH (RBC) [Entitic mass] 29.8 pg 25.2 - 33.5 pg [place] MCHC (RBC) [Mass/Vol] 33.2 g/dL 28.4 - 34.8 g/dL [place] MCV (RBC) [Entitic vol] 89.7 fL 82.6 - 102.9 fL [place] Monocytes (Bld) [#/Vol] 0.73 10*3/uL [place], [place] Monocytes/100 WBC (Bld) 10 % 3 - 12 % [place] Platelet mean volume (Bld) [Entitic vol] 11.4 fL 8.1 - 13.5 fL [place] Platelets (Bld) [#/Vol] NOT REPORTED [place] Platelets (Bld) [#/Vol] 148 10*3/uL [place] RBC (Bld) [#/Vol] 3.29 10*6/uL Low 3.95 - 5.1 1 m/uL [place], [place] RBC morphology finding Nom (Bld) NOT REPORTED [place], [place] Segmented neutrophils/100 WBC (Bld) 70 % High 36 - 65 % [place], [place] Segs Absolute 5.17 [place] WBC (Bld) [#/Vol] 7.4 10*3/uL [place] WBC (Bld) [#/Vol] 0.0 10*3/uL 0.0 per 10 0 WBC [place] WBC Morphology NOT REPORTED [place], [place] Comprehensive metabolic pane susie 12-21-2018 Albumin [Mass/Vol] 3.1 g/dL Low 3.5 - 5.2 g/dL [place] Albumin/Globulin [Mass ratio] 1.0 {ratio} [place], [place] ALP [Catalytic activity/Vol] 124 U/L High 35 - 104 U/L [place] ALT [Catalytic activity/Vol] 7 U/L 5 - 33 U/L [place], [place] Anion gap [Moles/Vol] 13 mmol/L 9 - 17 mmol/L [place] AST [Catalytic activity/Vol] 14 U/L <32 [place] Bilirubin Ql (U) 0.36 mg/dL 0.3 - 1.2 mg/dL [place], [place] Bun/Cre Ratio 10 [place] Calcium [Mass/Vol] 9.3 mg/dL 8.6 - 10. 4 mg/dL [place], [place] Chloride [Moles/Vol] 103 mmol/L 98 - 10 7 mmol/L [place] CO2 [Moles/Vol] 19 mmol/L Low 20 - 31 mmol/L [place] Creatinine [Mass/Vol] 0.84 mg/dL 0.5 - 0.9 mg/dL [place] GFR >60 >60 mL/min [place] GFR Non- >60 >60 mL/min [place] Glucose [Mass/Vol] 77 mg/dL 70 - 99 mg/dL [place] Potassium [Moles/Vol] 3.8 mmol/L 3.7 - 5.3 mmol/L [place], [place] Protein [Mass/Vol] 6.3 g/dL Low 6.4 - 8.3 g/dL [place] Sodium [Moles/Vol] 135 mmol/L 135 - 144 mmol/L [place], [place] Urea nitrogen [Mass/Vol] 8 mg/dL 6 - 20 mg/dL [place] DRUG SCREEN MULTI URINEon Amphetamine Screen, Ur Negative NEGATIVE [place] Barbiturate Screen, Ur Negative NEGATIVE [place] Benzodiazepine Screen, Urine Negative NEGATIVE [place] Buprenorphine Urine Negative NEGATIVE [place] Cannabinoid Scrn, Ur Negative NEGATIVE [place] Cocaine Metabolite, Urine Negative NEGATIVE [place] MDMA, Urine NOT REPORTED NEGATIVE [place] Methadone Screen, Urine Negative NEGATIVE [place], [place] Methamphetamine, Urine Negative NEGATIVE [place] Opiates, Urine Negative NEGATIVE [place] Oxycodone Screen, Ur Negative NEGATIVE [place] Phencyclidine, Urine Negative NEGATIVE [place] Propoxyphene, Urine Negative NEGATIVE [place] Test Information NOT REPORTED [place] Tricyclic Antidepressants, Urine Negative NEGATIVE [place] Comment on above: Drug screen results are to be used for medical purposes only. All positive results are unconfirmed. Testing for employment or legal uses should be sent to a reference laboratory for confirmation. Fibrinogenon 12-21-2018 Fibrinogen 481 mg/dL High 185 - 451 mg/dL [place], [place] Interpretation and review of laboratory results Abnormal [place], [place] Lactate Dehydrogenaseon 11-23 LD 201 U/L 135 - 214 U/L [place] Metabolic Panelon 12-21-2018 GFR/1.73 sq M predicted among non-blacks MDRD (S/P/Bld) [Vol rate/Area] [place], [place] Comment on above: Average GFR for 30-3 9 years old: 107 mL/min/1.73sq m Chronic Kidney Disease: <60 mL/min/1.73sq m Kidney failure: <15 mL/min/1.73sq m eGFR calculated using average adult body mass. Additional eGFR calculator available at: http://www.Fotolog.Peach [employer] Lily/multiple_crcl_2012.htm Stage 1: Some kidney damage normal GFR Stage 2: Mild kidney damage GFR 60-89 Stage 3: Moderate kidney damage GFR 30-59 Stage 4: Severe kidney damage GFR 15-29 Stage 5: Severe kidney damage GFR <15 ESRD - chronic treatment by dialysis or transplant Otheron 12-21-2018 Interpretation and review of laboratory results Abnormal [place], [place] Protime-INRon 12-21-2018 INR Coag (PPP) [Relative time] 1.0 {INR} [place], [place] PT Coag (PPP) [Time] 9.8 s [place] Uric acidon 12-21-2018 Urate [Mass/Vol] 6.8 mg/dL High 2.4 - 5.7 mg/dL [place], [place] APTTon 12-04-2018 aPTT Coag (Bld) [Time] 23.4 s [place], [place] CBC Auto Differentialon 11-21 Basophils (Bld) [#/Vol] 0.03 10*3/uL [place], [place] Basophils/100 WBC (Bld) 0 % 0 - 2 % [place] Differential Type NOT REPORTED [place] Eosinophils (Bld) [#/Vol] 0.12 10*3/uL [place], [place] Eosinophils/100 WBC (Bld) 1 % 1 - 4 % [place] Erythrocyte distribution width (RBC) [Ratio] 14.3 % 11.8 - 14.4 % [place] Hematocrit (Bld) [Volume fraction] 30.2 % Low 36.3 - 47.1 % [place], [place] Hemoglobin (Bld) [Mass/Vol] 10.3 g/dL Low 11.9 - 15.1 g/dL [place], [place] Immature granulocytes (Bld) [#/Vol] 2 % High 0 [place], [place] Immature granulocytes (Bld) [#/Vol] 0.22 10*3/uL [place], [place] Interpretation and review of laboratory results Abnormal [place], [place] Lymphocytes (Bld) [#/Vol] 1.19 10*3/uL [place], [place] Lymphocytes/100 WBC (Bld) 13 % Low 24 - 43 % [place] MCH (RBC) [Entitic mass] 30.4 pg 25.2 - 33.5 pg [place] MCHC (RBC) [Mass/Vol] 34.1 g/dL 28.4 - 34.8 g/dL [place] MCV (RBC) [Entitic vol] 89.1 fL 82.6 - 102.9 fL [place], [place] Monocytes (Bld) [#/Vol] 0.74 10*3/uL [place], [place] Monocytes/100 WBC (Bld) 8 % 3 - 12 % [place], [place] Platelet mean volume (Bld) [Entitic vol] NOT REPORTED 8.1 - 13.5 fL [place] Platelets (Bld) [#/Vol] NOT REPORTED [place], [place] Platelets (Bld) [#/Vol] See Reflexed IPF Result [place] RBC (Bld) [#/Vol] 3.39 10*6/uL Low 3.95 - 5.1 1 m/uL [place], [place] RBC morphology finding Nom (Bld) NOT REPORTED [place], [place] Segmented neutrophils/100 WBC (Bld) 75 % High 36 - 65 % [place], [place] Segs Absolute 6.71 [place] WBC (Bld) [#/Vol] 0.0 10*3/uL 0.0 per 10 0 WBC [place], [place] WBC (Bld) [#/Vol] 9.0 10*3/uL [place], [place] WBC Morphology NOT REPORTED [place] Comprehensive Metabolic Pane susie 12-04-2018 Albumin [Mass/Vol] 3.2 g/dL Low 3.5 - 5.2 g/dL [place] Albumin/Globulin [Mass ratio] 1.0 {ratio} [place], [place] ALP [Catalytic activity/Vol] 106 U/L High 35 - 104 U/L [place] ALT [Catalytic activity/Vol] 7 U/L 5 - 33 U/L [place] Anion gap [Moles/Vol] 13 mmol/L 9 - 17 mmol/L [place] AST [Catalytic activity/Vol] 11 U/L <32 [place], [place] Bilirubin Ql (U) 0.25 mg/dL Low 0.3 - 1.2 mg/dL [place], [place] Bun/Cre Ratio 7 Low [place] Calcium [Mass/Vol] 9.8 mg/dL 8.6 - 10. 4 mg/dL [place], [place] Chloride [Moles/Vol] 103 mmol/L 98 - 10 7 mmol/L [place] CO2 [Moles/Vol] 19 mmol/L Low 20 - 31 mmol/L [place] Creatinine [Mass/Vol] 0.89 mg/dL 0.5 - 0.9 mg/dL [place] GFR >60 >60 mL/min [place] GFR Non- >60 >60 mL/min [place], [place] Glucose [Mass/Vol] 103 mg/dL High 70 - 99 mg/dL [place] Interpretation and review of laboratory results Abnormal [place], [place] Potassium [Moles/Vol] 3.5 mmol/L Low 3.7 - 5.3 mmol/L [place], [place] Protein [Mass/Vol] 6.5 g/dL 6.4 - 8.3 g/dL [place] Sodium [Moles/Vol] 135 mmol/L 135 - 144 mmol/L [place], [place] Urea nitrogen [Mass/Vol] 6 mg/dL 6 - 20 mg/dL [place] Fibrinogenon 12-04-2018 Fibrinogen 498 mg/dL High 185 - 451 mg/dL [place], [place] Immature Platelet Fractionon 12-04-2018 Interpretation and review of laboratory results Abnormal [place], [place] Platelet, Fluorescence 137 Low [place], [place] Platelet, Immature Fraction 10.3 % 1.1 - 10.3 % [place] Lactate Dehydrogenaseon 11-21 LD 199 U/L 135 - 214 U/L [place] Metabolic Panelon 12-04-2018 GFR/1.73 sq M predicted among non-blacks MDRD (S/P/Bld) [Vol rate/Area] [place], [place] Comment on above: Stage 1: Some [...] body mass. Additional eGFR calculator available at: http://www.Fotolog.Peach [employer] Lily/multiple_crcl_2012.htm Microscopic Urinalysison Amorphous, UA NOT REPORTED None [place], [place] Bacteria, UA TRACE Abnormal None [place] Casts UA NOT REPORTED /LPF [place] Crystals UA NOT REPORTED None /HPF [place] Epithelial Cells UA 5 TO 10 [place], [place] Interpretation and review of laboratory results Abnormal [place] Mucus, UA TRACE Abnormal None [place], [place] Other Observations UA NOT REPORTED NOT REQ. [place], [place] RBC (U) [#/Vol] None [place], [place] Renal Epithelial, Urine NOT REPORTED 0 /HPF [place] Trichomonas, UA NOT REPORTED None [facility] [place] WBC, UA 5 TO 10 [place], [place] Yeast, UA NOT REPORTED None [place], [place] - [place] Otheron 12-04-2018 Interpretation and review of laboratory results Abnormal [place], [place] Protein / creatinine ratio, urineon 12-04-2018 Creatinine, Ur 93.6 mg/dL 28 - 217 mg/dL [place], [place] Protein (U) [Mass/Vol] 14 mg/dL [place], [place] Comment on above: No normal range esta blished. Urine Total Protein Creatinine Ratio 0.15 [place], [place] Protime-INRon 12-04-2018 INR Coag (PPP) [Relative time] 0.9 {INR} [place], [place] PT Coag (PPP) [Time] 9.4 s Low [place], [place] Uric Acidon 12-04-2018 Urate [Mass/Vol] 5.7 mg/dL 2.4 - 5.7 mg/dL [place] Urinalysison 12-04-2018 Bilirubin Urine Negative NEGATIVE [place], [place] Color, UA YELLOW YELLOW [place], [place] Glucose, Ur Negative NEGATIVE [place] Interpretation and review of laboratory results Abnormal [place], [place] Ketones Ql (U) Negative NEGATIVE [place] Leukocyte esterase Test strip Ql (U) MODERATE Abnormal NEGATIVE [place], [place] Nitrite, Urine Negative NEGATIVE [place] pH, UA 7.5 [place], [place] Protein (U) [Mass/Vol] Negative NEGATIVE [place] Specific [place], UA 1.010 [place], [place] Turbidity UA SLIGHTLY CLOUDY Abnormal CLEAR [place], [place] Urinalysis Comments NOT REPORTED [place] Urine Hgb Negative NEGATIVE [place], [place] Urobilinogen, Urine Normal Normal [place], [place] Glucose tolerance, 1 houron 10-16-2018 GLU ADMN Glucola [place], [place] Glucose tolerance screen 50g 194 mg/dL High 70 - 135 mg/dL [place] Interpretation and review of laboratory results Abnormal [place], [place] Hemoglobinon 10-16-2018 Hemoglobin (Bld) [Mass/Vol] 10.8 g/dL Low 11.9 - 15.1 g/dL [place], [place] Interpretation and review of laboratory results Abnormal [place] Vital Signs Date Time Vital Sign Value Performing Clinician Facility 05-26-2021 16:00-0400 Body height 160.02 cm Barbara Zhu Other [facility] Other 05-26-2021 16:00-0400 Body mass index (BMI) [Ratio] 32.59 kg/m2 Barbara Zhu Other [facility] Other 05-26-2021 16:00-0400 Body temperature 97.8 [degF] Barbara Zhu Other [facility] Other 05-26-2021 16:00-0400 Body weight 83.46 kg Barbara Zhu Other [facility] Other 05-26-2021 16:00-0400 SaO2% (BldA) [Mass fraction] 97 % Barbara Zhu Other [facility] Other 12-10-2020 16:15-0400 Body height 160.02 cm Katiuska Ho Other [facility] Other 12-10-2020 16:15-0400 Body mass index (BMI) [Ratio] 31.88 kg/m2 Katiuska Ho Other [facility] Other 12-10-2020 16:15-0400 Body temperature 98.2 [degF] Katiuska Ho Other [facility] Other 12-10-2020 16:15-0400 Body weight 81.65 kg Katiuska Ho Other [facility] Other 12-10-2020 16:15-0400 Respiratory rate 18 /min Katiuska Ho Other [facility] Other 12-10-2020 16:15-0400 SaO2% (BldA) [Mass fraction] 97 % Katiuska Ho Other [facility] Other 12-23-2018 08:46-0400 Body Temperature 97.59 [degF] [facility] [place] 12-23-2018 08:46-0400 BP Diastolic 77 mm[Hg] [facility] [place] [facility] [place] 12-23-2018 08:46-0400 BP Systolic 120 mm[Hg] Amaya [place] [employer] [facility] , [place] 12-23-2018 08:46-0400 Pulse (Heart Rate) 81 /min [facility] [place] 12-23-2018 08:46-0400 Respiratory Rate 20 /min [facility], [place] 12-22-2018 02:11-0400 Pulse [facility]ximetry 98 % [facility] [place] 12-21-2018 15:35-0400 BMI (Body Mass Index) 37.91 kg/m2 [facility] [place] 12-21-2018 15:35-0400 Body weight 97.07 kg [facility] , [place] 12-21-2018 15:35-0400 Height 160 cm [facility] , [place] 12-06-2018 00:01-0400 Body Temperature 97.9 [degF] [facility], [place] 12-06-2018 00:01-0400 BP Diastolic 74 mm[Hg] [facility] , [place] 12-06-2018 00:01-0400 BP Systolic 121 mm[Hg] [facility] , [place] 12-06-2018 00:01-0400 Pulse (Heart Rate) 105 /min [facility], [place] 12-06-2018 00:01-0400 Respiratory Rate 18 /min [facility], [place] 12-05-2018 23:44-0400 BMI (Body Mass Index) 37.2 kg/m2 [facility], [place] 12-05-2018 23:44-0400 Body weight 95.25 kg [facility] , [place] 12-05-2018 23:44-0400 Height 160 cm [facility] , [place] 12-04-2018 11:48-0400 BP Diastolic 81 mm[Hg] [facility] , [place] 12-04-2018 11:48-0400 BP Systolic 120 mm[Hg] [facility] , [place] 12-04-2018 11:48-0400 Pulse (Heart Rate) 95 /min [facility], [place] 12-04-2018 11:15-0400 Body Temperature 97.81 [degF] [facility], [place] 12-04-2018 11:15-0400 Respiratory Rate 18 /min [facility], [place] 10-17-2018 16:30-0400 Body Temperature 97.9 [degF] [address], [place] 10-17-2018 16:30-0400 BP Diastolic 84 mm[Hg] [facility] , [place] 10-17-2018 16:30-0400 BP Systolic 128 mm[Hg] [address] [place] 10-17-2018 16:30-0400 Pulse (Heart Rate) 86 /min [address] [place] 10-17-2018 16:30-0400 Respiratory Rate 20 /min [address], [place] Encounters Encounter Date Encounter Type Care Provider Facility Start: 03-23-2023 End: 03-23-2023 ambulatory KIKA AICHHOLZ Not Available Start: 02-23-2023 End: 02-23-2023 ambulatory KIKA AICHHOLZ Not Available Start: 06-01-2022 End: 06-02-2022 ambulatory FISHERIES DIRECTOR KIKA AICHHOLZ Facility:[facility]1 Start: 04-04-2022 End: 04-04-2022 ambulatory FISHERIES DIRECTOR KIKA AICHHOLZ Facility:[facility]1 Start: 12-22-2021 End: 12-23-2021 ambulatory FISHERIES DIRECTOR KIKA AICHHOLZ Facility:[facility]1 Start: 10-09-2021 End: 10-09-2021 ambulatory FISHERIES DIRECTOR KIKA AICHHOLZ Facility:[facility]1 Start: 10-08-2021 End: 10-09-2021 ambulatory FISHERIES DIRECTOR KIKA AICHHOLZ Facility:[facility]1 Start: 09-28-2021 End: 09-28-2021 ambulatory FISHERIES DIRECTOR KIKA AICHHOLZ Facility:[facility]1 Start: 09-16-2021 End: 09-17-2021 ambulatory FISHERIES DIRECTOR KIKA AICHHOLZ Facility:[facility]1 Start: 05-26-2021 End: 05-26-2021 ambulatory Barbara Zhu Other [facility] Other Start: 05-26-2021 Office outpatient vi sit 25 minutes Barbara Zhu [facility] Start: 01-14-2021 End: 01-14-2021 ambulatory Katiuska Ho Other [facility] Other Start: 01-14-2021 Office outpatient vi sit 5 minutes Katiuska Ho [facility] Start: 12-10-2020 Office outpatient vi sit 15 minutes Katiuska Ho [facility] Start: 01-02-2020 End: 01-03-2020 Patient encounter procedure [facility] Start: 01-02-2020 End: 01-02-2020 Subsequent hospital visit by physician Kika LARA Laboratory Comment on above: Amenorrhea; Positive urine test; Encounter for supervision of other normal in first trimester Start: 10-11-2019 End: 10-12-2019 Patient encounter procedure [facility] Start: 10-11-2019 End: 10-11-2019 Subsequent hospital visit by physician Kika LARA Laboratory Comment on above: Screen for STD (sexu ally transmitted disease); Encounter for well woman exam with routine gynecological exam Start: 02-06-2019 End: 02-07-2019 Patient encounter procedure [facility] Start: 02-06-2019 End: 02-06-2019 Subsequent hospital visit by physician Kika Guaman Work Phone: [facility] Laboratory Comment on above: Irregular menses; Possible , not yet confirmed Start: 01-08-2019 End: 01-09-2019 Patient encounter procedure [facility] Start: 01-08-2019 End: 01-08-2019 Subsequent hospital visit by physician Flaquita Alvarado Drawing Room [facility] Laboratory Comment on above: Gestational diabetes mellitus (GDM), Start: 12-21-2018 End: 12-23-2018 Evaluation and management of inpatient Amaya Chi [place] Work Phone: [facility] Labor and Delivery Start: 12-13-2018 End: 12-13-2018 Subsequent hospital visit by physician Kika LARA Laboratory Comment on above: 35 weeks gestation o f Start: 12-05-2018 End: 12-06-2018 Subsequent hospital visit by physician Freya Fischer Work Phone: [facility] Labor and Delivery Start: 12-04-2018 End: 12-04-2018 Subsequent hospital visit by physician Amaya Franco Work Phone: [facility] Labor and Delivery Start: 10-25-2018 End: 10-25-2018 Subsequent hospital visit by physician Flaquita Diabetes Education Room [facility] Diabetic Education Comment on above: Arrived Start: 10-17-2018 End: 10-17-2018 Subsequent hospital visit by physician Flaquita Op Treatment Rm 01 [facility] Specialty Clinic (MOB) Start: 10-16-2018 End: 10-16-2018 Subsequent hospital visit by physician MARCO Laboratory Comment on above: 27 weeks gestation o f ; Rh negative state in antepartum period, third trimester RhD negative [facility] [place] Procedures Date [...] Gonadotropin chorion ic quantitative Amaya E Pool PROTECTIVE SIGNAL REPAIRER - CNM Work Phone: Start: 01-08-2019 Glucose [...] - Td) DTaP/Tdap/Td vaccine (3 - Td) [place] Start: 12-23-2028 DTaP/Tdap/Td vaccine (9 - Td) DTaP/Tdap/Td vaccine (9 - Td) [place] Start: 02-10-2026 DTaP/Tdap/Td vaccine (2 - Td) DTaP/Tdap/Td vaccine (2 - Td) [place] Start: 10-10-2024 Screening for malign ant neoplasm of cervix Cervical cancer screen [place] Start: 08-13-2023 Cervical cancer screen Cervical canc er screen [place] Start: 10-03-2022 Screening for malign ant neoplasm of cervix Cervical cancer screen [place] Start: 10-16-2020 End: 10-16-2020 Office Visit 10/16/2020 Office Visit Obstetrics and Gynecology Amaya Franco APRN - CNM [address] [place], [place] [id number] [facility] OBSTETRICS & GYNECOLOGY Start: 01-21-2020 End: 01-21-2020 Routine 01/21/2020 Routine Obstetrics and Gynecology Amaya Franco APRN - PATRICK [address] [facility] [address] [place] [address] [phone] [facility] OBSTETRICS GYNECOLOGY Start: 01-16-2020 End: 01-16-2020 Ancillary Procedure 01/16/2020 Ancillary Procedure Obstetrics and Gynecology [facility] OBSTETRICS GYNECOLOGY Start: 12-22-2019 Creatinine measurement Creatinine mo [place]itoring [place] Start: 12-22-2019 Creatinine monitoring Creatinine [place] Start: 12-22-2019 Potassium monitoring Potassium monit [place] Start: 12-05-2019 Creatinine monitoring Creatinine mon [place] Start: 12-05-2019 Potassium monitoring Potassium monit [place] Start: 10-23-2019 Influenza vaccination Flu vaccine (# 1) [place] Start: 02-26-2019 Influenza vaccination Flu vaccine (# 1) [place] Comment on above: Postponed from 10/22 (Not Indicated) Start: 02-08-2019 End: 02-08-2019 ambulatory 02/08/2019 Visit Obstetrics and Gynecology Amaya Franco APRN - PATRICK [address] [place] [address] [facility] [employer] TE[employer]ER Start: 02-05-2019 End: 02-05-2019 Visit 02/05/2019 Visit Obstetrics and Gynecology Amaya Franco APRN - PATRICK [address] [place] [address] [facility] [employer] TE[employer]ER Start: 01-25-2019 Varicella Vaccine (1 of 2 - 2-dose childhood series) Varicella Vaccine (1 of 2 - 2-dose childhood series) [place] Comment on above: Postponed from 03/01 (Not Indicated) Start: 01-04-2019 End: 01-04-2019 Visit 01/04/2019 Visit Obstetrics and Gynecology KaranAmaya PROTECTIVE SIGNAL REPAIRER [facility] [address] [place] [address] [phone] [facility] [employer] TE[employer]ER Start: 12-25-2018 Influenza vaccination Flu vaccine (# 1) [place] Comment on above: Postponed from 10/22 (Not Indicated) Start: 12-25-2018 Varicella Vaccine (1 of 2 - 13+ 2-dose series) Varicella Vaccine (1 of 2 - 13+ 2-dose series) [place] Comment on above: Postponed from 03/01 (Not Indicated) Start: 12-21-2018 End: 12-21-2018 Routine 12/21/2018 Routine Obstetrics and Gynecology KaranAmaya PROTECTIVE SIGNAL REPAIRER [facility] [address] [place] [address] [facility] [employer] Start: 12-14-2018 End: 12-14-2018 Routine 12/14/2018 Routine Obstetrics and Gynecology Karan Amaya Chi PROTECTIVE SIGNAL REPAIRER [facility] [address] [place] [address] [facility] [employer] Start: 11-06-2018 End: 11-06-2018 Routine 11/06/2018 Routine Obstetrics and Gynecology KaranAmaya PROTECTIVE SIGNAL REPAIRER [facility] [address] [place] [address] [phone] [facility] [employer] TE[employer]ER Start: 10-22-2018 Influenza vaccination Flu vaccine (# 1) [place] Start: 2000 Varicella Vaccine (1 of 2 - 13+ 2-dose series) Varicella Vaccine (1 of 2 - 13+ 2-dose series) [place] Start: 1988 Varicella vaccine (1 of 2 - 2-dose childhood series) Varicella vaccine (1 of 2 - 2-dose childhood series) [facility] Work Phone: End: 10-11-2019 C.trachomatis N.gonorrhoeae DNA, Thin Prep C.trachomatis N.gonorrhoeae DNA, Thin Prep Microbiology Routine Screen for STD (sexually transmitted disease) 1 Occurrences starting 10/11/2019 until 10/11/2019 [place], [place] Comment on above: 1 Occurrences starti ng 10/11/2019 until 10/11/2019 C.trachomatis N.gonorrhoeae DNA, Thin Prep C.trachomatis N.gonorrhoeae DNA, Thin Prep Microbiology Routine Screen for STD (sexually transmitted disease) 10/11/2019 12:16 PM EDT [place], [place] End: 01-02-2020 C.trachomatis N.gonorrhoeae DNA, Urine C.trachomatis N.gonorrhoeae DNA, Urine Microbiology Routine Amenorrhea Positive urine test Encounter for supervision of other normal in first trimester 1 Occurrences starting 01/02/2020 until 01/02/2020 [place], [place] Comment on above: 1 Occurrences starti ng 01/02/2020 until 01/02/2020 C.trachomatis N.gonorrhoeae DNA, Urine C.trachomatis N.gonorrhoeae DNA, Urine Microbiology Routine Amenorrhea Positive urine test Encounter for supervision of other normal in first trimester 01/02/2020 4:57 PM EST [place] End: 01-02-2020 Culture, Urine Culture, Urine Microbiology Routine Amenorrhea Positive urine test Encounter for supervision of other normal in first trimester 1 Occurrences starting 01/02/2020 until 01/02/2020 [place] Comment on above: 1 Occurrences starti ng 01/02/2020 until 01/02/2020 Culture, Urine Culture, Urine Microbiology Routine Amenorrhea Positive urine test Encounter for supervision of other normal in first trimester 01/02/2020 4:57 PM [place], [place] End: 10-11-2019 Cytopathology procedure, preparation of smear, genital source PAP SMEAR Lab Routine Encounter for well woman exam with routine gynecological exam 1 Occurrences starting 10/11/2019 [facility]11[facility]: [facility] Occurrences starti ng 10/11/2019 until 10/11/2019 nonstress test nonst ress test OB Routine Daily until discontinued starting 12/06/2018, 1 completed [facility] above: Daily until disconti nued starting 12/06/2018, 1 completed End: 12-04-2018 nonstress test nonstress test OB Routine One Time for 1 Occurrences starting 12/04/2018 until 12/04/2018 [facility] on above: One Time for 1 Occur rences starting 12/04/2018 until 12/04/2018 End: 01-02-2020 HbA1c (Bld) [Mass fraction] Hemoglobin A1C Lab Routine Amenorrhea Positive urine test Encounter for supervision of other normal in first trimester 1 Occurrences starting 01/02/2020 until 01/02/2020 [facility]: 1 Occurrences starti ng 01/02/2020 until 01/02/2020 HbA1c (Bld) [Mass fraction] Hemoglobin A1C Lab Routine Amenorrhea Positive urine test Encounter for supervision of other normal in first trimester 01/02/2020 4:57 PM EST [facility] Nonrebreather mask oxygen Nonrebreather mask oxygen Respiratory Care Routine As directed - RT (PRN) until discontinued starting 12/05/2018 [facility] Comment on above: As directed - RT (MT N) until discontinued starting 12/05/2018 End: 12-22-2018 POCT Glucose POCT Glucose Point of Care Testing Routine One Time for 1 Occurrences starting 12/22/2018 until 12/22/2018 [facility] Comment on above: One Time for 1 Occur rences starting 12/22/2018 until 12/22/2018 RHOGAM ANTEPARTUM RHOGAM ANTEPAR ANDRA Blood Bank Routine 27 weeks gestation of Rh negative state in antepartum period, third trimester 10/16/2018 7:08 PM EDT [facility] POSTPAR [facility]RA Blood Bank [employer] Label Print 12/22/2018 2:55 PM EDT [facility] End: 12-13-2018 Strep B Screen, Vaginal / Rectal Strep B Screen, Vaginal / Rectal Microbiology Routine 35 weeks gestation of 1 Occurrences starting 12/13/2018 until 12/13/2018 [place], [place] Comment on above: 1 Occurrences starti ng 12/13/2018 until 12/13/2018 Strep B Screen, Vagi nal / Rectal Strep B Screen, Vaginal / Rectal Microbiology Routine 35 weeks gestation of 12/13/2018 4:12 PM EDT [place] End: 12-05-2018 SVE SVE Point of Care Testing Routine One Time for 1 Occurrences starting 12/05/2018 until 12/05/2018 [place] Comment on above: One Time for 1 Occur rences starting 12/05/2018 until 12/05/2018 Immunizations Immunization Date Immunization Notes Care Provider Sarah gloria 12-23-2018 tetanus toxoid, redu [place]olina diphtheria toxoid, and acellular pertussis vaccine, adsorbed [place], [place] 12-22-2018 diphtheria, tetanus toxoids and acellular pertussis vaccine, unspecified formulation [place], [place] 02-11-2016 tetanus toxoid, redu carolina diphtheria toxoid, and acellular pertussis vaccine, adsorbed [place], [place] 05-08-2014 RHO(D) immune globul in - IM [place] Payers Date Payer Category Payer Unknown [facility] xxxxxxxxxxxx 2015-Present [phone] [place] [id number] [id number] 1987 Unknown [id number] [id number] .173 1987 Unknown [id number] 2.16.840.1.155718.3.579.2 .173 1987 Unknown [id number] 2.16.840.1.119970.3.579.2 .173 1987 Unknown [id number] 2.16.840.1.407820.3.579.2 .173 1987 Unknown [id number] 2.16.840.1.601237.3.579.2 .173 1987 Unknown [id number] 2.16.840.1.214842.3.579.2 .593 1987 Unknown [id number] 2.16.840.1.830294.3.579.2 .593 1987 Unknown [id number] 2.16.840.1.300808.3.579.2 .593 1987 Unknown [id number] 2.16.840.1.186438.3.579.2 .593 1987 Unknown [id number] 2.16.840.1.045111.3.579.2 .593 1987 Unknown [id number] 2.16.840.1.781465.3.579.2 .593 1987 Unknown [id number] 2.16.840.1.270011.3.579.2 .593 1987 Unknown [id number] 2.16.840.1.734166.3.579.2 .1259 1987 Unknown [id number] 2.16.840.1.973361.3.579.2 .1259 1959 Private Health Insurance [id number] [id number] 1959 Unknown [id number] .[id number] Social History Date Type Detail Facility Start: 08-28-2018 End: 01-04-2019 Tobacco smoking status NHIS Never smoker [place], [place] Start: 08-28-2018 End: 12-04-2018 Alcohol intake Not Currently [place] Start: 03-28-2014 Alcohol Comment rarely [place], [place] Start: 04-20-2018 [place] Sex Assigned At Not on file [place], [place] Start: 10-11-2019 End: 01-02-2020 Tobacco use and exposure Never used [facility] Start: 01-04-2019 End: 10-11-2019 Alcohol intake Ex-drinker (finding) Jan Taylor Y Exposure to SARS-CoV -2 (event) Not sure [facility] Procedure Code Equipment Code Equipment Origin al Text Equipment Identifier Dates Pt to test four times daily fastin, 2 hr pp [id number] Start: 10-18-2018 End: 12-23-2018 1 each by Other route 4 times daily One glucometer, test strips, lancets - per insurance coverage [id number] Start: 10-18-2018 End: 10-18-2019 use to test BLOO D SUGAR FOUR TIMES DAILY [id number] Start: 10-23-2018 End: 12-23-2018 Evaluation note 05-26-2021 [...] provided x 1 day, no extension allowed [facility] Other Evaluation note 01-14-2021 Note Date & [...] Patient care instructions given in writting by [facility] Care At Home document. [facility] Other Evaluation note 12-10-2020 Note Date & [...] Patient care instructions given in writting by [facility] Care At Home document. [facility] Other Evaluation note Note Date & Type Note Facility Evaluation note Diagnosis Irregular menses Irregular menstrual cycle Possible , not yet confirmed examination or test, unconfirmed documented in this encounter [employer] Phone: History general Narrative - Reported Note Date & Type Note Facility History general Narrative - Reported Type Surgical History laparoscopy Knees Right and Lef t Hospitalization History Childbirth Natural x4 [facility] Other History general Narrative - Reported Note Date & Type Note Facility History general Narrative - Reported Type Medical History herpes Surgical History laparoscopy Knees Right and Lef t Surgical History cholecystectomy Surgical History appendectomy Surgical History right thumb\ Hospitalization History Childbirth Natural x4 [facility] Other Assessments Diagnosis 27 weeks gestation of [...] FoundDocuments on File Type Date Recorded Patient Medical Assistant Expl anation Advance Directives and Living Will Power of Aquatics Lifeguard Latest Code Status on File Code Status [...] Documents on File Type Date Recorded Patient Medical Assistant Expl anation ACP-Advance Directive ACP-Power of Aquatics Lifeguard Latest Code Status on File Code Status [...] RN - 12/06/2018 OUTPATIENT DISCHARGE Jennifer Calvert [facility] or [facility] Dr. Galan Freya Husain [facility] Anahy Mahmood [facility] Dr. Mira Hagen Freya Conde [facility] ACTIVITY LIMITATIONS: ( z )Up and [...] Follow-up with your OB doctor as specified. [facility] OB Department phone: Dr. Danis Franco [facility] Dr. Pete Fischer [address] or [place] DIET Eat a well balanced diet focusing on foods high in fiber and protein. Drink plenty of fluids especially water. To avoid constipation you may take a mild stool softener as recommended by your doctor or buttonhole machine operator. ACTIVITY Gradually increase your activity. Resume exercise regimen only after advice by your doctor or buttonhole machine operator. Avoid lifting anything heavier than a gallon of milk for SIX weeks. Avoid driving until your doctor or buttonhole machine operator has given their approval. Rise slowly from [...] medications as recommended by your doctor or buttonhole machine operator for pain If you develop a warm, [...] vitamins as directed by your doctor or buttonhole machine operator. Refer to the booklet in the folder/binder for more information. If you feel you need more assistance or have questions, please call Gia Walton IBCLC, remediation consultant, at or the OB department to [...] Outpatient Instructions for IM or Subcutaneous Injections [address] [place] [address] You are advised to carry out the [...] RN - 12/04/2018 OUTPATIENT DISCHARGE Jennifer Calvert [facility] or [facility] Dr. Freeman Freya Fischer [facility] ACTIVITY LIMITATIONS: ( X )Up and [...] rate: Baseline Heart Rate: 140 Accelerations: present Intermediate Variability: moderate Decelerations: absent Contraction frequency: 2 [...] the referral. Education session duration: 70 minutes; ([id number]). Reminder to ordering Physician/Provider: Diabetes and CKD [...] Amaya Franco APRN - CNM [address] [place] [address] [facility] Reason Comments Gestational Diabetes Status Reason Specialty Diagnoses / Procedures Referred By Contact Referred To Contact [facility] Required Diabetes Services Diagnoses Abnormal GTT (glucose tolerance test) Amaya Franco APRN - CNM [address] [place] [address] [facility] Diabetic Education [address] [place] [address] Reason Comments Hypertension INFORMATION SOURCE (unrecogn ized section and content) DATE CREATED AUTHOR 01/04/2020 [facility] DATE CREATED AUTHOR AUTHOR'S ORGANIZ ATION 07/03/2022 [facility] DATE CREATED AUTHOR AUTHOR'S ORGANIZ ATION 03/24/2023 [facility] FOR RECORDS PERTAINING TO PATIENTS WHO [...] BE BASED ON THE PRIMARY CLINICAL RECORDS. [employer] provides no warranty or guarantee of the accuracy or completeness of information in this document.
[2023-03-29 21:11] LABS: Age Gdln ACOG Testing Note (.); HPV Aptima Negative (Negative); IGP, Aptima HPV, rfx 16/18,45 Note (.)
== END 2023-03-24 20:12 | disposition home or self-care (01) ==
LOC: LAB 20:11
PROVIDERS: PCP Nurse Practitioner; Visit Provider Nurse Practitioner
DX: Z01.419 Encounter for gynecological examination (general) (routine) without abnormal findings (principal)
CPT/HCPCS: 87624; G0145

== ENCOUNTER 2023-04-05 19:23 | Emergency (ER) | payer OTHER, SELFPAY ==
--- OUTSIDE RECORDS SUMMARY | 2023-04-05 19:28 | XMS_ITS | CCD ---
Author Name Unknown Address [address] [place] [address] Organization [facility] Care Team Providers Care Food Mobile Driver Name Role Phone Unavailable Primary Care Provider UnavailKika Huitron Primary Care Provider [phone] Kika Guaman Primary Care Provider SALVADOR, AMAYA E Referring Unavailable REYNA GUAMANA Larry Primary Care Unavailable SALVADOR, AMAYA E Referring Unavailable KIKA GUAMAN Primary Care Unavailable POOL, AMAYA E Referring Unavailable KIKA GUAMAN Primary Care Unavailable POOL, AMAYA E Referring Unavailable REYNA GUAMANA Larry Primary Care Unavailable POOL, AMAYA E Referring Unavailable KIKA GUAMAN Primary Care Unavailable Kika Guaman Primary Care Provider [phone] Katiuska Ho Unavailable Barbara Zhu Unavailable AICHHOLZ, FALAFEL CART COOK KIKA Primary Care Unavailable DR JOSSY FIGUEROA Admitting Unavailbud FIGUEROA, DR JOSSY Tran Attending Unavailbud SPIVEY ., MR KAROL Consulting Unavailable AICHHOLZ, FALAFEL CART COOK KIKA Primary Care Unavailable DR VINCENZO FISCHER Admitting Unavailable LAWRENCE, DR VINCENZO Rahman Attending Unavailable DR VINCENZO FISCHER Consulting Unavailable AICHHOLZ, FALAFEL CART COOK KIKA Admitting Unavailable AICHHOLZ, FALAFEL CART COOK KIKA Attending Unavailable AICHHOLZ, FALAFEL CART COOK KIKA Primary Care Unavailable AICHHOLZ, FALAFEL CART COOK KIKA Consulting Unavailable RONALD JOHN Consulting Unavailable AICHHOLZ, FALAFEL CART COOK KIKA Admitting Unavailable AICHHOLZ, FALAFEL CART COOK KIKA Attending Unavailable AICHHOLZ, FALAFEL CART COOK KIKA Primary Care Unavailable AICHHOLZ, FALAFEL CART COOK KIKA Consulting Unavailable AICHHOLZ, FALAFEL CART COOK KIKA Admitting Unavailable AICHHOLZ, FALAFEL CART COOK KIKA Attending Unavailable AICHHOLZ, FALAFEL CART COOK KIKA Primary Care Unavailable AICHHOLZ, FALAFEL CART COOK KIKA Consulting Unavailable AICHHOLZ, FALAFEL CART COOK KIKA Admitting Unavailable AICHHOLZ, FALAFEL CART COOK KIKA Attending Unavailable AICHHOLZ, FALAFEL CART COOK KIKA Primary Care Unavailable AICHHOLZ, FALAFEL CART COOK KIKA Consulting Unavailable AICHHOLZ, FALAFEL CART COOK KIKA Primary Care Unavailable LAWRENCE, DR VINCENZO Rahman Admitting Unavailable LAWRENCE, DR VINCENZO Rahman Attending Unavailable DR VINCENZO FISCHER Consulting Unavailable DR DEEJAY REES Consulting Unavailable MITCHELL ., RAJINDER Consulting Unavailable AICHHOLZ, KIKA Attending Unavailable AICHHOLZ, KIKA Attending Unavailable Aichholz SURGICAL PROCESSOR, Kika Unavailable Benji Hinojosa MD Primary Care Provider Medications Current Medications Medication Drug Class(es) Dates Sig (Normalized) Sig (Original) acetaminophen 325 mg oral tablet (7 sources) Start: 12-21-2018 End: 12-22-2018 take 650 [...] from all sources in 24 hours. take 1 tablet by josette th every four hours as needed acetaminophen (Tylenol) 325 MG tablet Ta ke 325 mg by mouth every 4 (four) hours if needed 0 Active take 2 tablets by mo tnh every six hours as needed for pain [...] oral solution (1 source) alpha-Adrenergic Agonist, Uncompetitive J-vdvbgb-U-asparta te Receptor Antagonist, Sigma-1 Agonist Start: 05-26-2021 take 10 mL by mouth every six hours Pseudoeph-Bromphe n-DM 30-2-10 MG/5ML 10 mL Orally every 6 hours for 5 days May, Active docusate sodium 100 mg oral capsule (1 source) Start: 12-22-2018 take 100 mg by mouth twice daily as needed for constipation 100 mg, Oral, 2 TIMES DAILY PRN, Constipation, Starting Tue12/22/18 at 0325 Do not crush or break. ethinyl estradiol 0.03 mg / norethindrone acetate 1.5 mg oral tablet (1 source) Estrogen Start: 12-26-2022 take 1 tablet by mouth in the morning norethindrone ac-eth estradio (Lorelei 1.5/30) 1.5-30 MG-MCG tablet tablet Take 1 tablet by mouth in the morning. 0 12/26/2022 Active ethinyl estradiol 0.035 mg / norgestimate 0.25 mg oral tablet (3 sources) Progestin, Estrogen Start: 02-08-2019 take 1 tablet by mouth once daily norgestimate-ethi nyl estradiol (ORTHO-CYCLEN, 28,) 0.25-35 MG-MCG per tablet [...] Skin, nipple discomfort, Starting Tue12/22/18 at 0325, Multiple Vitamin (Daily-Vitamin) tablet (1 source) take 1 tablet by mouth in the morning Multiple Vitamin (Daily-Vitamin) tablet Take 1 tablet by mouth in the morning. 0 Active Multiple Vitamins-Minerals (Multi For Her) capsule (1 source) take 1 tablet by mouth in the morning Multiple Vitamins-Minera ls (Multi For Her) capsule Take 1 tablet by mouth in the morning. 0 Active oxytocin (PITOCIN) 30 units in 500 mL [...] at 0325 After every IV line use SUMAtriptan 50 mg oral tablet (1 source) Serotonin-1b and Serotonin-1d Receptor Agonist Start: 12-22-2022 take 1 tablet by mouth once SUMAtriptan (Imitrex) 50 MG tablet Take 50 mg by mouth 1 (one) time if needed 0 12/22/2022 Active tiZANidine 2 mg oral capsule (2 sources) Central alpha-2 Adrenergic Agonist Start: 12-27-2022 take 1 capsule by mouth every eight hours as needed Zanaflex 2 MG capsule Take 2 mg by mouth every 8 (eight) hours if needed 0 12/27/2022 Active Start: 12-22-2022 tiZANidine (Za naflex) 4 MG tablet Take 4 mg by mouth 0 12/22/2022 Active topiramate 25 mg oral tablet (1 source) Start: 02-23-2023 take 2 tablets by mouth at bedtime topiramate (Topamax) 25 MG tablet Indications: Migraine without aura and without status migrainosus, not intractable (CMS/HCC) Take 2 tablets (50 mg) by mouth at bedtime 60 tablet 1 02/23/2023 Active witch saurabh 500 mg/ml medicated pad (1 [...] if mom negative and baby positive, Starting Tue12/22/18 at 0325, For 1 dose, Start: 10-17-2018 End: 10-17-2018 rho(D) immune globulin (HYPE RRHO S/D) injection 300 mcg sodium phosphate 67.8 mg/ml / sodium phosphate, monobasic 185 mg/ml enema (1 source) Start: 12-06-2018 End: 12-06-2018 fleet rectal enema 1 enema valACYclovir 500 mg oral tablet (9 sources) Herpesvirus Nucleoside Analog DNA Polymerase Inhibitor, [...] Active Problems Problem Classification Problem Date Documented Date Episodic/Chronic Essential hypertension (11 sources) Hypertensive disorder; Translations: [Essential (primary) hypertension] Onset: 12-04-2018 12-04-2018 Chronic Headache; including migraine (1 source) Migraine without aura, not refractory ; Translations: [Migraine without aura, not intractable, without status migrainosus] Onset: 02-10-2023 02-10-2023 Chronic Hypertension complicating ; childbirth and the puerperium (10 sources) Pre-existing hypertension in obstetric context; Translations: [Pre-existing essential hypertension during in third trimester] 12-04-2018 Chronic Joint disorders and dislocations; trauma-related (1 source) Derangement of left knee; Translations: [Unspecified internal derangement of left knee] Onset: 02-17-2023 02-17-2023 Chronic Menstrual disorders (3 sources) Amenorrhea; Translations: [Irregular periods] Onset: 02-23-2023 Chronic Nonmalignant breast conditions (1 source) Breast lump; Translations: [Unspecified lump in the right breast, upper outer quadrant] Onset: 03-23-2023 03-23-2023 Episodic Osteoarthritis (1 source) Osteoarthritis of knee; Translations: [Osteoarthritis of knee, unspecified] Onset: 02-17-2023 02-17-2023 Chronic Other aftercare (1 source) Other usp (current) drug therapy; Translations: [OTH [facility]PC CURRENT DRUG THERAPY] Onset: 04-06-2022 Episodic Other complications of (14 sources) Anemia in mother complicating , childbirth AND/OR puerperium; Translations: [Anemia affecting in third trimester] Onset: 01-23-2016 Resolved: 03-20-2016 03-20-2016 Chronic Other connective tissue disease (1 source) Other muscle spasm; Translations: [OTHER MUSCLE SPASM] Onset: 04-06-2022 Episodic Other connective tissue disease (1 source) Pain of left calf; Translations: [Pain in left lower leg] Onset: 02-17-2023 02-17-2023 Episodic Other non-traumatic joint disorders (5 sources) Pain in left knee; Translations: [Pain in joint, lower leg] Onset: 06-01-2022 Episodic Other nutritional; endocrine; and metabolic disorders (1 source) Obesity, unspecified; Translations: [OBESITY UNSPECIFIED] Onset: 09-22-2021 Chronic Other nutritional; endocrine; and metabolic disorders (1 source) Obesity caused by energy imbalance; Translations: [Other obesity due to excess calories] Onset: 02-23-2023 02-23-2023 Chronic Other nutritional; endocrine; and metabolic disorders (1 source) Body mass index 30+ - obesity; Translations: [Body mass index (BMI) 35.0-35.9, adult] Onset: 03-23-2023 03-23-2023 Chronic Other and delivery including normal (20 [...] NOT SPECIFIED] Onset: 04-06-2022 Episodic Viral infection (15 sources) Anogenital herpesviral infection; Translations: [Anogenital herpesviral infection, unspecified] Onset: 03-29-2013 02-09-2016 Chronic Viral infection (2 sources) COVID-19; [...] Resolved: 03-20-2016 03-20-2016 Episodic Other complications of (15 sources) Herpes in ; Translations: [Other viral diseases complicating , unspecified trimester] Onset: 01-10-2016 01-13-2016 Episodic Other gastrointestinal disorders [...] Test Name Value Interpretation Reference Range Facility IGP,APTIMA HPV,AGE GDLNon AGE GDLN ACOG TESTING Note . [facility] Comment on above: TESTS RESULT FLAG UN ITS REF RANGE LAB Clinician Provided Cytology Information Source.............Cervix;Endocervix No. of containers..01 ThinPrep Vial Age Algo ACOG Orin... 30-65 01 FLAG LEGEND: L-Low Normal,H-High Normal,LL-Alert Low,HH-Alert High <-Panic Low,>-Panic High,A-Abnormal,AA-Critical Abnormal Performed at: 01 =G [facility] [id number] Verenice Minaya MD, HPV APTIMA Negative Negative [facility] Comment on above: This nucleic acid am plification test detects fourteen high- risk HPV types (16,18,31,33,35,39,45,51,52,56,58,59,66,68) without differentiation. Performed at: =[facility] [id number] Field Clerk: Verenice Minaya MD, Phone: [phone] Performed at: - [facility], [place] [id number] Field Clerk: Verenice Minaya MD, Phone: [phone] IGP, APTIMA HPV, RFX 16/18,45 Note . [facility] Comment on above: TESTS RESULT FLAG UN ITS REF RANGE LAB DIAGNOSIS: 02 NEGATIVE FOR INTRAEPITHELIAL LESION OR MALIGNANCY. CELLULAR CHANGES ASSOCIATED WITH INFLAMMATION ARE PRESENT. Specimen adequacy: 02 Satisfactory for evaluation. No endocervical component is identified. Performed by: 02 Lori Howard, Wafer Slicer (ASCP) . 02 Note: Note 02 The Pap smear is a screening test designed to aid in the detection of premalignant and malignant conditions of the uterine cervix. It is not a diagnostic procedure and should not be used as the sole means of detecting cervical cancer. Both false-positive and false-negative reports do occur. Test Methodology: Note 02 This liquid based ThinPrep(R) pap test was screened with the use of an image guided system. HPV Genotype Reflex Note 02 Criteria not met, HPV Genotype not performed. FLAG LEGEND: L-Low Normal,H-High Normal,LL-Alert Low,HH-Alert High <-Panic Low,>-Panic High,A-Abnormal,AA-Critical Abnormal Performed at: [facility] [address] [place] [address] Verenice Minaya MD, BROOM-ALONE CERVIX ENDOCERVIX [facility] MRI KNEE LT WO CONon 023 MRI [...] by: RONALD JOHN Date: 2022-06-01 13:03 Normal [facility] CULTURE URINEon 04-07-2022 CULTURE URINE Isolate 1 [...] Trimethoprim/Sulfam ethoxazole <=20 S F Normal [facility] Comment on above: Performed By: #### C VDTBH #### [facility] [address] [place] [address] Dr. Latanya Donis ER URINE PROFILEon 3 Bilirubin Ql (U) Negative Normal NEGATIVE [facility] Comment on above: Performed By: #### E LEE BOYLE #### [facility] [address] [place] [address] [facility] Dr. Latanya Donis Clarity (U) CLEAR Normal CLEAR [facility] Comment on above: Performed By: #### Arti BOYLE UMICRO #### [facility] [address] [place] [address] Dr. Latanya Donis Color (U) BROWN Abnormal YELLOW [facility] Comment on above: Performed By: #### E TAMAR, UMICRO #### [facility] [address] [place] [address] Dr. Latanya DUTTON A micrscopic examination will be performed if indicated. Normal [facility] Comment on above: Performed By: #### Arti BOYLE UMICRO #### [facility] [address] [place] [address] Dr. Latanya Donis Glucose Ql (U) Negative Normal NEGATIVE [facility] Comment on above: Performed By: #### Arti BOYLE UMICRO #### [facility] [address] [place] [address] Dr. Latanya Donis Hemoglobin Ql (U) LARGE Abnormal NEGATIVE [facility] Comment on above: Performed By: #### Arti BOYLE UMICRO #### [facility] [address] [place] [address] Dr. Latanya Donis Ketones Ql (U) Negative Normal NEGATIVE [facility] Comment on above: Performed By: #### Arti BOYLE UMICRO #### [facility] [address] [place] [address] Dr. Latanya Donis LEUKOCYTES MODERATE Abnormal NEGATIVE [facility] Comment on above: Performed By: #### Arti BOYLE UMICRO #### [facility] [address] [place] [address] Dr. Latanya Donis Nitrite Ql (U) Positive Abnormal NEGATIVE [facility] Comment on above: Performed By: #### Arti BOYLE UMICRO #### [facility] [address] [place] [address] Dr. Latanya Donis pH (U) 5.5 [pH] Normal 5-9 [facility] Comment on above: Performed By: #### Arti BOYLE UMICRO #### [facility] [address] [place] [address] Dr. Latanya Donis Protein (U) [Mass/Vol] 100 mg/dL Abnormal NEGATIVE/ TRACE [facility] Comment on above: Performed By: #### ARVIND LUNAICRO #### [facility] [address] [place] [address] Dr. Latanya Donis SPEC GRAVITY 1.025 Normal 1.005-<=1.025 [facility] Comment on above: Performed By: #### Arti BOYLE UMICRO #### [facility] [address] [place] [address] Dr. Latanya Donis UR MICRO IND INDICATED Normal [facility] Comment on above: Performed By: #### Arti BOYLE UMICRO #### [facility] [address] [place] [address] Dr. Latanya Donis Urobilinogen Qn (U) 1.0 {Hanny'U}/dL Normal 0.2 - 1. 0 [facility] Comment on above: Performed By: #### Arti BOYLE UMICRO #### [facility] [address] [place] [address] Dr. Latanya Donis URINE MICROSCOPIC ONLYon BACTERIA MODERATE Abnormal NONE SEEN [facility] Comment on above: Performed By: #### Arti BOYLE UMICRO #### [facility] [address] [place] [address] Dr. Latanya Donis Bacteria identified Cx Nom (U) INDICATED Normal [facility] Comment on above: Performed By: #### Arti BOYLE UMICRO #### [facility] [address] [place] [address] Dr. Latanya Donis CAST NONE SEEN Normal NONE SEEN [facility] Comment on above: Performed By: #### Arti BOYLE UMICRO #### [facility] [address] [place] [address] Dr. Latanya Donis Crystals LM Nom (Urine sed) NONE SEEN Normal NONE SEEN [facility] Comment on above: Performed By: #### Arti BOYLE UMICRO #### [facility] [address] [place] [address] Dr. Latanya Donis Epithelial cells LM Ql (Urine sed) NONE SEEN Normal NONE SEEN /RARE [facility] Comment on above: Performed By: #### STEFANIA LUNARO #### [facility] [address] [address] [address] Latanya Donis MUCOUS NONE SEEN Normal NONE SEEN [facility] Comment on above: Performed By: #### STEFANIA LUNARO #### [facility] [address] [address] [address] Latanya Donis RBC (U) [#/Vol] /uL Abnormal 0-2 [facility] Comment on above: Performed By: #### STEFANIA LUNARO #### [facility] [address] [place] [address] Dr. Latanya Donis WBC 5-10 Abnormal NONE SEEN [facility] Comment on above: Performed By: #### STEFANIA LUNARO #### [facility] [address] [place] [address] FACIAL BONES W [...] DEEJAY REES Date: 2021-12-22 22:26 Normal [facility] CBC AUTO DIFFon 12-22-2021 BASO # 0.0 103/ul Normal 0.0-0.1 [facility] Comment on above: Performed By: #### C BC #### [facility] [address] [place] [address] Dr. Latanya Donis Basophils/100 WBC (Bld) 0.3 % Normal 0.2-2.0 [facility] Comment on above: Performed By: #### C BC #### [facility] [address] [place] [address] Dr. Latanya Donis EO # 0.1 103/ul Normal 0.0-0.7 [facility] Comment on above: Performed By: #### C BC #### [facility] [address] [place] [address] Dr. Latanya Donis Eosinophils/100 WBC (Bld) 0.6 % Critically low 0.9-7.0 [facility] Comment on above: Performed By: #### C BC #### [facility] [address] [place] [address] Dr. Latanya Donis Erythrocyte distribution width (RBC) [Ratio] 12.2 % Normal 11.0-15.0 [facility] Comment on above: Performed By: #### C BC #### [facility] [address] [place] [address] Dr. Latanya Donis Hematocrit (Bld) [Volume fraction] 37.1 % Normal 36.0-48.0 [facility] Comment on above: Performed By: #### C BC #### [facility] [address] [place] [address] Dr. Latanya Donis Hemoglobin (Bld) [Mass/Vol] 12.5 g/dL Normal 12.0-16.0 [facility] Comment on above: Performed By: #### C BC #### [facility] [address] [place] [address] Dr. Latanya Donis IG # 0.03 10e3/ul Normal 0.00-0.03 [facility] Comment on above: Performed By: #### C BC #### [facility] [address] [place] [address] Dr. Latanya Donis IG % 0.3 % Normal 0.0-0.5 [facility] Comment on above: Performed By: #### C BC #### [facility] [address] [place] [address] Dr. Latanya Donis LYMPH # 1.6 103/ul Normal 1.2-3.8 [facility] Comment on above: Performed By: #### C BC #### [facility] [address] [place] [address] Dr. Latanya Donis Lymphocytes/100 WBC (Bld) 17.1 % Critically low 20.5-60.0 [facility] Comment on above: Performed By: #### C BC #### [facility] [address] [place] [address] Dr. Latanya Donis MANUAL DIFF REQ NO Normal [facility] Comment on above: Performed By: #### C BC #### [facility] [address] [place] [address] Dr. Latanya Donis MCH (RBC) [Entitic mass] 29.3 pg Normal 26.7-34.0 [facility] Comment on above: Performed By: #### C BC #### [facility] [address] [place] [address] Dr. Latanya Donis MCHC (RBC) [Mass/Vol] 33.7 g/dL Normal 29.9-35.2 [facility] Comment on above: Performed By: #### C BC #### [facility] [address] [place] [address] Dr. Latanya Donis MCV (RBC) [Entitic vol] 86.9 fL Normal 81.0-99.0 [facility] Comment on above: Performed By: #### C BC #### [facility] [address] [place] [address] Dr. Latanya Donis MONO # 0.8 103/ul Normal 0.3-0.8 [facility] Comment on above: Performed By: #### C BC #### [facility] [address] [place] [address] Dr. Latanya Donis Monocytes/100 WBC (Bld) 8.2 % Normal 1.7-12.0 [facility] Comment on above: Performed By: #### C BC #### [facility] [address] [address] [address] Latanya Donis NEUT # 7.0 103/ul Critically high 1.4-6.5 [facility] Comment on above: Performed By: #### C BC #### [facility] [address] [place] [address] Dr. Latanya Donis Neutrophils/100 WBC (Bld) 73.5 % Normal 43.0-75.0 [facility] Comment on above: Performed By: #### C BC #### [facility] [address] [place] [address] Dr. Latanya Donis Platelet mean volume (Bld) [Entitic vol] 11.4 fL Normal 9.5-13.5 [facility] Comment on above: Performed By: #### C BC #### [facility] [address] [place] [address] Dr. Latanya Donis PLT 266 103/ul Normal 150-450 [facility] Comment on above: Performed By: #### C BC #### [facility] [address] [place] [address] Dr. Latanya Donis RBC 4.27 106/ul Normal 4.20-5.40 [facility] Comment on above: Performed By: #### C BC #### [facility] [address] [place] [address] Dr. Latanya Donis WBC 9.5 103/ul Normal 4.0-11.0 [facility] Comment on above: Performed By: #### C BC #### [facility] [address] [place] [address] Dr. Latanya Donis CULTURE BLOODon 12-22-2021 Microscopic examination of blood, culture Culture Observations: NO GROWTH AT 5 DAYS. Normal [facility] Comment on above: Performed By: #### C VDTBH #### [facility] [address] [place] [address] Dr. Latanya Donis Microscopic examination of blood, culture Culture Observations: NO GROWTH AT 5 DAYS. Normal [facility] Comment on above: Performed By: #### C VDTBH #### [facility] [address] [place] [address] Dr. Latanya Donis PROF CHEM 8 (BAS METB)on Anion gap [Moles/Vol] 12.1 mmol/L Normal [facility] Comment on above: Performed By: #### B MP #### [facility] [address] [place] [address] Dr. Latanya Donis Calcium [Mass/Vol] 8.9 mg/dL Normal 8.5-10.1 [facility] Comment on above: Performed By: #### B MP #### [facility] [address] [place] [address] Dr. Latanya Donis Chloride [Moles/Vol] 107 mmol/L Normal 98-107 [facility] Comment on above: Performed By: #### B MP #### [facility] [address] [place] [address] Dr. Latanya Donis CO2 [Moles/Vol] 25.3 mmol/L Normal 21.0-32.0 [facility] Comment on above: Performed By: #### B MP #### [facility] [address] [place] [address] Dr. Latanya Donis Creatinine [Mass/Vol] 0.99 mg/dL Normal 0.55-1.02 [facility] Comment on above: Performed By: #### B MP #### [facility] [address] [place] [address] Dr. Latanya Donis EGFR-AF TANZANIAN >60 Normal >=60 [facility] Comment on above: Performed By: #### B MP #### [facility] [address] [place] [address] Dr. Latanya Donis EGFR-NON AF TANZANIAN >60 Normal >=60 [facility] Comment on above: Performed By: #### B MP #### [facility] [address] [address] [address] Latanya Donis Glucose [Mass/Vol] 94 mg/dL Normal 74-106 [facility] Comment on above: Performed By: #### B MP #### [facility] [address] [address] [address] Latanya oDnis Potassium [Moles/Vol] 3.4 mmol/L Critically low 3.5-5.1 [facility] Comment on above: Performed By: #### B MP #### [facility] [address] [address] [address] Latanya Donis Sodium [Moles/Vol] 141 mmol/L Normal 136-145 [facility] Comment on above: Performed By: #### B MP #### [facility] [address] [place] [address] Dr. Latanya Donis Urea nitrogen [Mass/Vol] 11.0 mg/dL Normal 7.0-18.0 [facility] Comment on above: Performed By: #### B MP #### [facility] [address] [place] [address] Dr. Latanya Donis Urea nitrogen/Creatinine [Mass ratio] 11.1 mg/mg Normal [facility] Comment on above: Performed By: #### B MP #### [facility] [address] [place] [address] Dr. Latanya Donis CHLAMYDIA/GONOCOCCUS GERALDINE ( AB/URINE/PAPon 10-13-2021 Chlamydia trachomatis, GERALDINE Negative Normal Negative [facility] Comment on above: Performed By: #### C VDTBH #### [facility] [address] [place] [address] Dr. Latanya Donis Neisseria gonorrhoeae, GERALDINE Negative Normal Negative [facility] Comment on above: Performed By: #### C VDTBH #### [facility] [address] [place] [address] Dr. Latanya Donis HEPATITIS PANEL, ACUTEon HBsAg Screen Negative Normal Negative [facility] Comment on above: Performed By: #### H EPACUT #### [facility] [address] [address] [address] Latanya Donis HCV AB <0.1 Normal 0.0-0.9 [facility] Comment on above: Performed By: #### H EPACUT #### [facility] [address] [address] [address] Latanya Donis Hep A Ab, IgM Negative Normal Negative The [facility] Comment on above: Performed By: #### H EPACUT #### [facility] [address] [address] [address] Latanya Donsi Hep B Core Ab, IgM Negative Normal Negative [facility] Comment on above: Performed By: #### H EPACUT #### [facility] [address] [address] [address] Latanya Donis Interpretation: Comment Normal [facility] Comment on above: Result Comment: Nega tive Not infected with HCV, unless recent infection is suspected or other evidence exists to indicate HCV infection. Performed By: #### H EPACUT #### [facility] [address] [address] [address] Latanya Donis HIV 1 AND 2 WITH REFLEXon HIV Screen 4th Generation wRfx Non-Reactive Normal Non Reactive [facility] Comment on above: Result Comment: HIV Negative HIV-1/HIV-2 antibodies and HIV-1 p24 antigen were NOT detected. There is no laboratory evidence of HIV infection. Performed By: #### H IV12 #### [facility] [address] [address] [address] Latanya Donis RPR QUANTon 10-10-2021 Rapid Plasma Reagin, Quant Non-Reactive Normal NonRea<1:1 [facility] Comment on above: Result Comment: Plea se Note: This test does not meet current guidelines for screening and diagnosis of syphilis. This test is intended for following treatment response in patients being treated for syphilis infection. To screen for syphilis infection, a reflex cascade that includes both RPR and a treponema-specific assay should be utilized, such as Treponema pallidum (Syphilis) Screening [place] (331961) or Rapid Plasma Reagin (RPR) Test With Reflex to Quantitative RPR and Confirmatory Treponema pallidum Antibodies (385494). Performed By: #### C VDTBH #### [facility] [address] [address] [address] Latanya Donis VAGINITIS/VAGINOSIS DNA PROB Kirill 10-10-2021 Delmy species Negative Normal Negative [facility] Comment on above: Performed By: #### V AGINT #### [facility] [address] [address] [address] Latanya Donis Gardnerella vaginalis Negative Normal Negative [facility] Comment on above: Performed By: #### V AGINT #### [facility] [address] [address] [address] Latanya Donis Trichomonas vaginalis Negative Normal Negative [facility] Comment on above: Performed By: #### V AGINT #### [facility] [address] [place] [address] Dr. Latanya Donis Covid-19 PCR ([facility])on SARS-CoV-2 (COVID-19) RNA GERALDINE+probe Ql (Unsp spec) Detected Critically abnormal NOT DETECTED [facility] Comment on above: Result Comment: This test is not yet approved or cleared by the [place] FDA. When there are no FDA-approved or cleared tests available, and other criteria are met, FDA can make tests available under an emergency access mechanism called an Emergency Use Authorization (EUA). The EUA for this test is supported by the [place] of Health and Human Service's declaration that [...] used). Performed By: #### C VDTBH #### [facility] [address] [place] [address] Dr. Latanya Donis INSULINon 09-18-2021 Insulin 6.9 uIU/mL Normal 2.6-24.9 [facility] Comment on above: Performed By: #### I NSULIN #### [facility] [address] [place] [address] Dr. Latanya Donis FREE T4on 09-16-2021 Free T4 [Mass/Vol] 0.79 ng/dL Normal 0.76-1.46 [facility] Comment on above: Performed By: #### C VDTBH #### [facility] [address] [place] [address] Dr. Latanya Donis GLYCOHEMOGLOBIN A1Con 2021 ADA RECOMMENDATION SEE BELOW Normal [facility] Comment on above: Result Comment: ADA RECOMMENDED LIMIT 4.0 - 6.0 ADA THERAPEUTIC TARGET < 7.0 ACTION SUGGESTED > 7.0 Performed By: #### A 1C #### [facility] [address] [place] [address] Dr. Latanya Donis Glucose [Mass/Vol] 91 mg/dL Normal [facility] Comment on above: Performed By: #### A 1C #### [facility] [address] [place] [address] Dr. Latanya Donis HbA1c (Bld) [Mass fraction] 4.8 % Normal 4.5-6.2 [facility] Comment on above: Performed By: #### A 1C #### [facility] [address] [place] [address] Dr. Latanya Donis PROF CHEM 8 (BAS METB)on Anion gap [Moles/Vol] 10.0 mmol/L Normal [facility] Comment on above: Performed By: #### C VDTBH #### [facility] [address] [place] [address] Dr. Latanya Donis Calcium [Mass/Vol] 9.8 mg/dL Normal 8.5-10.1 [facility] Comment on above: Performed By: #### C VDTBH #### [facility] [address] [place] [address] Dr. Latanya Donis Chloride [Moles/Vol] 103 mmol/L Normal 98-107 [facility] Comment on above: Performed By: #### C VDTBH #### [facility] [address] [place], [place] [id number] Dr. Latanya Donis CO2 [Moles/Vol] 30.4 mmol/L Normal 21.0-32.0 [facility] Comment on above: Performed By: #### C VDTBH #### [facility] [address] [place] [address] Dr. Latanya Donis Creatinine [Mass/Vol] 0.92 mg/dL Normal 0.55-1.02 [facility] Comment on above: Performed By: #### C VDTBH #### [facility] [address] [place] [address] Dr. Latanya Donis EGFR-AF TANZANIAN >60 Normal >=60 [facility] Comment on above: Performed By: #### C VDTBH #### [facility] [address] [place] [address] Dr. Latanya Donis EGFR-NON AF TANZANIAN >60 Normal >=60 [facility] Comment on above: Performed By: #### C VDTBH #### [facility] [address] [place] [address] Dr. Latanya Donis Glucose [Mass/Vol] 93 mg/dL Normal 74-106 [facility] Comment on above: Performed By: #### C VDTBH #### [facility] [address] [place] [address] Dr. Latanya Donis Potassium [Moles/Vol] 4.4 mmol/L Normal 3.5-5.1 [facility] Comment on above: Performed By: #### C VDTBH #### [facility] [address] [place] [address] Dr. Latanya Donis Sodium [Moles/Vol] 139 mmol/L Normal 136-145 [facility] Comment on above: Performed By: #### C VDTBH #### [facility] [address] [place] [address] Dr. Latanya Donis Urea nitrogen [Mass/Vol] 11.0 mg/dL Normal 7.0-18.0 [facility] Comment on above: Performed By: #### C VDTBH #### [facility] [address] [place] [address] Dr. Latanya Doins Urea nitrogen/Creatinine [Mass ratio] 12.0 mg/mg Normal [facility] Comment on above: Performed By: #### C VDTBH #### [facility] [address] [address] [address] Latanya Donis TSHon 09-16-2021 TSH 1.496 uIU/mL Normal 0.358-3.740 [facility] Comment on above: Performed By: #### C VDTBH #### [facility] [address] [address] [address] Latanya Donis COVID Quick Testingon 2020 Result Negative [facility] [employer] Other COVID Quick Testingon 2020 Result Negative [facility] [employer] Other Chlamydia/GC DNA, Uron 01-03 Chlamydia Probe, Ur Negative Normal NEG [facility] Comment on above: Result Comment: CHLA MYDIA [...] target. Performed By: #### U CGP #### [employer] [address] [place] [address] [id number] Field Clerk: Ezio Calvillo MD Gonorrhea Probe, Ur Negative Normal NEG [facility] Comment on above: Result Comment: NEIS SERIA [...] target. Performed By: #### U CGP #### [facility] [address] [place], [place] [id number] Field Clerk: Ezio Calvillo MD Cult,Urineon 01-04-2020 Cult,Urine Specimen Description .CLEAN CATCH URINE Special Requests NOT REPORTED Culture NO SIGNIFICANT GROWTH Report Status FINAL 01/04/2020 Normal [facility] Comment on above: Performed By: #### P PPVP #### [address] [place] [address] Field Clerk: Ezio Calvillo MD Hemoglobin A1Con 01-04-2020 HbA1c (Bld) [Mass fraction] 4.8 % Normal 4.0-6.0 [facility] Comment on above: Performed By: #### A HCV, GLYHGB, HIVCMB #### [facility] [employer] [address] [place] [address] Field Clerk: Ezio Calvillo MD HbA1c (Bld) [Mass fraction] 91 mg/dL Normal [facility] Comment on above: Result Comment: The ADA and AACC recommend providing the estimated average glucose result to permit better patient understanding of their HBA1c result. Performed By: #### A HCV, GLYHGB, HIVCMB #### [facility] [employer] [address] [place] [address] Field Clerk: Ezio Calvillo MD HIV Ag/Abon 01-03-2020 HIV Ag/Ab NONREACTIVE Normal NR [facility] Comment on above: Result Comment: No l aboratory evidence of HIV infection. If acute HIV infection is suspected, consider testing for HIV-1 RNA. Performed By: #### A HCV, GLYHGB, HIVCMB #### [facility] [employer] [facility] [place] [address] Field Clerk: Ezio Calvillo MD Hep C Abon 01-03-2020 Hep C Ab NONREACTIVE Normal NR [facility] Comment on above: Result Comment: The hepatitis [...] By: #### A HCV, GLYHGB, HIVCMB #### [address] [place] [address] Field Clerk: Ezio Calvillo MD Profileon 0 T.pallidum Ab Screen NONREACTIVE Normal [facility] Comment on above: Result Comment: T. pallidum antibodies are not detected. There is no serological evidence of infection with T. pallidum (early primary syphilis cannot be excluded). Retest in 2-4 weeks if syphilis is clinically suspect. Performed By: #### P RENAT #### [address] [address] Field Clerk: Ezio Calvillo MD [facility] [address] [place] [address] [place] [address] Field Clerk: Chase Glez MD Hep B Surf Ag NONREACTIVE Normal [facility] Comment on above: Performed By: #### P RENAT #### [address] [address] Field Clerk: Ezio Calvillo MD [facility] [address] [place] [address] [place] [address] Field Clerk: Chase Glez MD Rubella Ab, IgG 68.2 IU/mL Normal [facility] Comment on above: Result Comment: REFERENCE RANGE: <5.0 NON-REACTIVE (non-immune) 5.0 TO 9.9 EQUIVOCAL >=10.0 REACTIVE (immune) Performed By: #### P RENAT #### [address] [address] Field Clerk: Ezio Calvillo MD [facility] [address] [place] [address] [place] [address] Field Clerk: Chase Glez MD HIV Screenon 01-02-2020 HIV Ag/Ab NONREACTIVE NONREACTIVE [place], [place] Comment on above: No laboratory eviden ce of HIV infection. If acute HIV infection is suspected, consider testing for HIV-1 RNA. Hepatitis C Antibodyon 01-01 Hepatitis C Ab NONREACTIVE NONREACTIVE [place], [place] Comment on above: The hepatitis C [...] Ion 020 Basophils (Bld) [#/Vol] 0.03 10*3/uL [place] Basophils/100 WBC (Bld) 0 % 0 - 2 % [place] Differential Type NOT REPORTED [place] Eosinophils (Bld) [#/Vol] 0.12 10*3/uL [place] Eosinophils/100 WBC (Bld) 2 % 1 - 4 % [place] Erythrocyte distribution width (RBC) [Ratio] 12.4 % 11.8 - 14.4 % [place] Hematocrit (Bld) [Volume fraction] 41.5 % 36.3 - 47.1 % [place] Hemoglobin (Bld) [Mass/Vol] 13.5 g/dL 11.9 - 15.1 g/dL [place] Hepatitis B Surface Ag NONREACTIVE NONREACTIVE [place] Immature granulocytes (Bld) [#/Vol] 0 % 0 [place] Immature granulocytes (Bld) [#/Vol] 10*3/uL [place] Lymphocytes (Bld) [#/Vol] 2.14 10*3/uL [place] Lymphocytes/100 WBC (Bld) 28 % 24 - 43 % [place] MCH (RBC) [Entitic mass] 28.9 pg 25.2 - 33.5 pg [place] MCHC (RBC) [Mass/Vol] 32.5 g/dL 28.4 - 34.8 g/dL [place] MCV (RBC) [Entitic vol] 88.9 fL 82.6 - 102.9 fL [place] Monocytes (Bld) [#/Vol] 0.63 10*3/uL [place] Monocytes/100 WBC (Bld) 8 % 3 - 12 % [place] Platelet mean volume (Bld) [Entitic vol] 12.3 fL 8.1 - 13.5 fL [place] Platelets (Bld) [#/Vol] NOT REPORTED [place] Platelets (Bld) [#/Vol] 213 10*3/uL [place] RBC (Bld) [#/Vol] 4.67 10*6/uL 3.95 - 5.1 1 m/uL [place] RBC morphology finding Nom (Bld) NOT REPORTED [place] Rubella virus IgG Ql (S) 68.2 IU/mL [place] Comment on above: REFERENCE RANGE: <5.0 NON-REACTIVE (non-immune) 5.0 TO 9.9 EQUIVOCAL >=10.0 REACTIVE (immune) Segmented neutrophils/100 WBC (Bld) 62 % 36 - 65 % [place] Segs Absolute 4.69 [place], [place] T. pallidum, IgG NONREACTIVE NONREACTIVE [place] Comment on above: T. pallidum antibodies are not detected. There is no serological evidence of infection with T. pallidum (early primary syphilis cannot be excluded). Retest in 2-4 weeks if syphilis is clinically suspect. WBC (Bld) [#/Vol] 7.6 10*3/uL [place] WBC (Bld) [#/Vol] 0.0 10*3/uL 0.0 per 10 0 WBC [place] WBC Morphology NOT REPORTED [place], [place] TYPE AND SCREENon 1 03-03-2019 ABO/Rh Negative [place] Profileon 0 Abs. Basophil 0.03 k/uL Normal 0.00-0.20 [facility] Comment on above: Performed By: #### P RENAT #### [facility] [employer] [facility] [place] [address] Field Clerk: Ezio Calvillo MD [address] [place] [address] Field Clerk: Chase Glez MD Abs.Imm.Granulocyte <0.03 Normal 0.00-0.30 [facility] Comment on above: Performed By: #### P RENAT #### [address] [address] Field Clerk: Ezio Calvillo MD [address] [place] [address] Field Clerk: Chase Glez MD Abs.Neutrophil (Seg) 4.69 k/uL Normal 1.50-8.10 [facility] Comment on above: Performed By: #### P RENAT #### [address] [address] Field Clerk: Ezio Calvillo MD [address] [place] [address] Field Clerk: Chase Glez MD Basophils/100 WBC (Bld) 0 % Normal 0-2 [facility] Comment on above: Performed By: #### P RENAT #### [address] [address] Field Clerk: Ezio Calvillo MD [address] [place] [address] Field Clerk: Chase Glez MD Eosinophils (Bld) [#/Vol] 0.12 10*3/uL Normal 0.00-0.44 [facility] Comment on above: Performed By: #### P RENAT #### [address] [address] Field Clerk: Ezio Calvillo MD [address] [place] [address] Field Clerk: Chase Glez MD Eosinophils/100 WBC (Bld) 2 % Normal 1-4 [facility] Comment on above: Performed By: #### P RENAT #### [address] [address] Field Clerk: Ezio Calvillo MD [address] [place] [id number] Field Clerk: Chase Glez MD Erythrocyte distribution width (RBC) [Ratio] 12.4 % Normal 11.8-14.4 [facility] Comment on above: Performed By: #### P RENAT #### [address] [address] Field Clerk: Ezio Calvillo MD [address] [place] [address] Field Clerk: Chase Glez MD Hematocrit (Bld) [Volume fraction] 41.5 % Normal 36.3-47.1 [facility] Comment on above: Performed By: #### P RENAT #### [address] [address] Field Clerk: Ezio Calvillo MD [address] [place] [id number] Field Clerk: Chase Glez MD Hemoglobin (Bld) [Mass/Vol] 13.5 g/dL Normal 11.9-15.1 [facility] Comment on above: Performed By: #### P RENAT #### [address] [address] Field Clerk: Ezio Calvillo MD [address] [place] [id number] Field Clerk: Chase Glez MD Immature granulocytes (Bld) [#/Vol] 0 % Normal 0 [facility] Comment on above: Performed By: #### P RENAT #### [address] [address] Field Clerk: Ezio Calvillo MD [address] [place] [phone] Field Clerk: Chase Glez MD Lymphocytes (Bld) [#/Vol] 2.14 10*3/uL Normal 1.10-3.70 [facility] Comment on above: Performed By: #### P RENAT #### [address] [place] [address] Field Clerk: Ezio Calvillo MD [facility] [address] [place] [address] Dr. [place] [phone] Field Clerk: Chase Glez MD Lymphocytes/100 WBC (Bld) 28 % Normal 24-43 [facility] Comment on above: Performed By: #### P RENAT #### [address] [address] Field Clerk: Ezio Calvillo MD [facility] [address] [place] [address] Dr. [place] [phone] Field Clerk: Chase Glez MD MCH (RBC) [Entitic mass] 28.9 pg Normal 25.2-33.5 [facility] Comment on above: Performed By: #### P RENAT #### [address] [address] Field Clerk: Ezio Calvillo MD [address] [place] [phone] Field Clerk: Chase Glez MD MCHC (RBC) [Mass/Vol] 32.5 g/dL Normal 28.4-34.8 [facility] Comment on above: Performed By: #### P RENAT #### [address] [address] Field Clerk: Ezio Calvillo MD [facility] [address] [place] [address] Dr. [place] [phone] Field Clerk: Chase Glez MD MCV (RBC) [Entitic vol] 88.9 fL Normal 82.6-102.9 [facility] Comment on above: Performed By: #### P RENAT #### [address] [address] Field Clerk: Ezio Calvillo MD [facility] [address] [place] [address] [place] [address] Field Clerk: Chase Glez MD Monocytes (Bld) [#/Vol] 0.63 10*3/uL Normal 0.10-1.20 [facility] Comment on above: Performed By: #### P RENAT #### [address] [address] Field Clerk: Ezio Calvillo MD [facility] [address] [place] [address] Dr. [place] [phone] Field Clerk: Chase Glez MD Monocytes/100 WBC (Bld) 8 % Normal 3-12 [facility] Comment on above: Performed By: #### P RENAT #### [address] [address] Field Clerk: Ezio Calvillo MD [address] [place] [facility] Field Clerk: Chase Glez MD Neutrophil (Seg) 62 % Normal 36-65 [facility] Comment on above: Performed By: #### P RENAT #### [address] [address] Field Clerk: Ezio Calvillo MD [address] [place] [address] Field Clerk: Chase Glez MD NRBC Automated 0.0 per 100 WBC Normal 0.0 [facility] Comment on above: Performed By: #### P RENAT #### [address] [address] Field Clerk: Ezio Calvillo MD [facility] [address] [place] [address] [place] [address] Field Clerk: Chase Glez MD Platelet mean volume (Bld) [Entitic vol] 12.3 fL Normal 8.1-13.5 [facility] Comment on above: Performed By: #### P RENAT #### [address] [place] [address] Field Clerk: Ezio Calvillo MD [address] [place] [address] Field Clerk: Chase Glez MD Platelets (Bld) [#/Vol] 213 10*3/uL Normal 138-453 [facility] Comment on above: Performed By: #### P RENAT #### [address] [address] Field Clerk: Ezio Calvillo MD [address] [place] [address] Field Clerk: Chase Glez MD RBC (Bld) [#/Vol] 4.67 10*6/uL Normal 3.95-5.11 [facility] Comment on above: Performed By: #### P RENAT #### [address] [address] Field Clerk: Ezio Calvillo MD [address] [place] [address] Field Clerk: Chase Glez MD WBC (Bld) [#/Vol] 7.6 10*3/uL Normal 3.5-11.3 [facility] Comment on above: Performed By: #### P RENAT #### [address] [address] Field Clerk: Ezio Calvillo MD [address] [place] [address] Field Clerk: Chase Glez MD Auto Diff Performed NOT REPORTED Normal [facility] Comment on above: Performed By: #### P RENAT #### [address] [address] Field Clerk: Ezio Calvillo MD [address] [place] [phone] Field Clerk: Chase Glez MD Platelets (Bld) [#/Vol] NOT REPORTED Normal [facility] Comment on above: Performed By: #### P RENAT #### [address] [address] Field Clerk: Ezio Calvillo MD [address] [place] [phone] Field Clerk: Chase Glez MD RBC morphology finding Nom (Bld) NOT REPORTED Normal [facility] Comment on above: Performed By: #### P RENAT #### [address] [address] Field Clerk: Ezio Calvillo MD [address] [place] [address] Field Clerk: Chase Glez MD WBC Morphology NOT REPORTED Normal [facility] Comment on above: Performed By: #### P RENAT #### [address] [address] Field Clerk: Ezio Calvillo MD [address] [place] [address] Field Clerk: Chase Glez MD Type + Scrnon 01-01 Type + Scrn Negative [facility] Comment on above: Performed By: #### P RTYS #### [address] [place] [phone] Field Clerk: Chase Glez MD Toxicology Scree, Urineon Amphetamine(s),Ur Negative Normal NEG [facility] Comment on above: Performed By: #### C PDAU #### [address] [place], [place] [id number] Field Clerk: Chase Glez MD Barbiturate(s),Ur Negative Normal NEG [facility] Comment on above: Performed By: #### C PDAU #### [facility] [address] [place] [address] Field Clerk: Chase Glez MD Benzodiazepine(s) Negative Normal [facility] Comment on above: Performed By: #### C PDAU #### [facility] [address] [place], [place] [phone] Field Clerk: Chase Glez MD Buprenorphrine, Ur Negative Normal NEG [facility] Comment on above: Performed By: #### C PDAU #### [facility] [address] [place], [place] [id number] Field Clerk: Chase Glez MD Cannabinoid(s),Ur Negative Normal [facility] Comment on above: Performed By: #### C PDAU #### [facility] [address] [place], [facility] Field Clerk: Chase Glez MD Cocaine Metabolite Negative Normal [facility] Comment on above: Performed By: #### C PDAU #### [facility] [address] [place], [facility] Field Clerk: Chase Glez MD Methadone Ql (U) Negative Normal NEG [facility] Comment on above: Performed By: #### C PDAU #### [facility] [address] [place], [facility] Field Clerk: Chase Glez MD Methamphetamine, Ur Negative Normal [facility] Comment on above: Performed By: #### C PDAU #### [facility] [address] [place], [place] [address]83 Field Clerk: Chase Glez MD Opiate(s), Ur Negative Normal NEG [facility] Comment on above: Performed By: #### C PDAU #### [facility] [address] [place] [address] Field Clerk: Chase Glez MD Oxycodone, Urine Negative Normal NEG [facility] Comment on above: Performed By: #### C PDAU #### [facility] [address] [place] [address] Field Clerk: Chase Glez MD Phencyclidine, Ur Negative Normal NEG [facility] Comment on above: Performed By: #### C PDAU #### [facility] [address] [place], [place] [id number] Field Clerk: Chase Glez MD Propoxyphene,Urine Negative Normal NEG [facility] Comment on above: Performed By: #### C PDAU #### [facility] [address] [place] [address] Field Clerk: Chase Glez MD Tricyclic antidepressants Screen Ql (U) Negative Normal NEG [facility] Comment on above: Result Comment: Drug screen results are to be used for medical purposes only. All positive results are unconfirmed. Testing for employment or legal uses should be sent to a reference laboratory for confirmation. Performed By: #### C PDAU #### [facility] [address] [place], [place] [id number] Field Clerk: Chase Glez MD Interpretive Info NOT REPORTED Normal [facility] Comment on above: Performed By: #### C PDAU #### [facility] [address] [place] [address] Field Clerk: Chase Glez MD MDMA, Urine NOT REPORTED Normal NEG [facility] Comment on above: Performed By: #### C PDAU #### [facility] [address] [place], [place] [id number] Field Clerk: Chase Glez MD Urine Drug Screen, Chayo foxbethany 01-02-2020 Amphetamine Screen, Ur Negative NEGATIVE [place] Barbiturate Screen, Ur Negative NEGATIVE [place] Benzodiazepine Screen, Urine Negative NEGATIVE [place] Buprenorphine Urine Negative NEGATIVE [facility] [place] Cannabinoid Scrn, Ur Negative NEGATIVE [facility] [place] Cocaine Metabolite, Urine Negative NEGATIVE [facility] [place] MDMA, Urine NOT REPORTED NEGATIVE [facility] [place] Methadone Screen, Urine Negative NEGATIVE [facility] [place] Methamphetamine, Urine Negative NEGATIVE [facility] [place] Opiates, Urine Negative NEGATIVE [facility] [place] Oxycodone Screen, Ur Negative NEGATIVE [facility] [place] Phencyclidine, Urine Negative NEGATIVE [facility] [place] Propoxyphene, Urine Negative NEGATIVE [facility] [place] Test Information NOT REPORTED [facility] Tricyclic Antidepressants, Urine Negative NEGATIVE [facility] [place] Comment on above: Drug screen results are to be used for medical purposes only. All positive results are unconfirmed. Testing for employment or legal uses should be sent to a reference laboratory for confirmation. Chlamydia/GC DNA, TPon 10-13 Chlamydia Probe, TP Negative Normal NEG [facility] Comment on above: Result Comment: CHLA MYDIA [...] target. Performed By: #### P PPVP #### [facility] [address] [place] [id number] Field Clerk: Ezio Calvillo MD Gonorrhea Probe, TP Negative Normal NEG [facility] Comment on above: Result Comment: NEIS SERIA [...] target. Performed By: #### P PPVP #### [facility] [address] [place] [id number] Field Clerk: Ezio Calvillo MD Cytologyon 10-11-2019 Cytology (NOTE) INTERPRETATION Cervical material, (ThinPrep vial, Imaging-assisted review): Specimen Adequacy: Satisfactory for evaluation. -Endocervical/trans formation zone component is absent. Descriptive Diagnosis: Negative for intraepithelial lesion or malignancy. Shift in rebecca suggestive of bacterial vaginosis. 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 without abnormal findings High Risk HPV DNA testing is requested if the diagnosis is ASC-US LMP: 09/17/2019 GYNECOLOGIC CYTOLOGY REPORT Patient Name: ROBLES YEN [facility] Rec: [id number] Path Number: [id number] [facility] CONSULTING PATHOLOGISTS [facility] ANATOMIC PATHOLOGY [address] [place] [id number] Normal [facility] Comment on above: Performed By: #### P PPVP #### [address] [id number] Field Clerk: Ezio Calvillo MD HCG, Quanton 02-06-2019 HCG, Quant <1 Normal <5 [facility] Comment on above: Result Comment: Non-preg premeno <=5 Postmeno <=8 Male <=3 If HCG results do not concur with clinical observations, additional testing to confirm results is recommended. Elevated results not associated with may be found in patients with other diseases such as tumors of the germ cells (testis, ovaries, etc.), bladder, pancreas, stomach, lungs, and liver. Performed By: #### B HCG #### [facility] [address] [place] [address] Field Clerk: Chase Glez MD hCG, Quantitative, Ordered By: Amaya Franco on 02-06-2019 hCG Quant <1 <5 IU/L [place] Work Phone: Comment on above: Non-preg premeno <=5 Postmeno <=8 Male <=3 If HCG results do not concur with clinical observations, additional testing to confirm results is recommended. Elevated results not associated with may be found in patients with other diseases such as tumors of the germ cells (testis, ovaries, etc.), bladder, pancreas, stomach, lungs, and liver. Glucose [place]. 2 hron 01-09-20 19 2 Hr 139 mg/dL Normal 65-139 [facility] Comment on above: Performed By: #### G LU2HR #### [facility] [address] [place] [address] Field Clerk: Chase Glez MD 1 Hr 143 mg/dL Normal 65-184 [facility] Comment on above: Performed By: #### G LU2HR #### [facility] [address] [place], [place] [id number] Field Clerk: Chase Glez MD Fasting 91 mg/dL Normal 65-99 [facility] Comment on above: Performed By: #### G LU2HR #### [facility] [address] [place] [address] Field Clerk: Chase Glez MD Glucose [Mass/Vol] 75 g Normal [facility] Comment on above: Performed By: #### G LU2HR #### [facility] [address] [place] [address] [place] [address] Field Clerk: Chase Glez MD Glucose Tolerance, 2 Hrson 1 03-10-2018 Glucose [Mass/Vol] 75 g [place], [place] Glucose [Mass/Vol] 91 mg/dL 65 - 99 mg/dL [place], [place] Glucose, GTT - 1 Hour 143 mg/dL 65 - 184 mg/dL [place] Glucose, GTT - 2 Hour 139 mg/dL 65 - 139 mg/dL [place] Glucose, Whole Bloodon 01-08 Glucose [Mass/Vol] 88 mg/dL 74 - 100 mg/dL [place], [place] Glucose, Whole Bloodon 12-22 Glucose [Mass/Vol] 104 mg/dL High 74 - 100 mg/dL [place] Interpretation and review of laboratory results Abnormal [place] APTTon 12-21-2018 aPTT Coag (Bld) [Time] 25.3 s [place] CBC auto differentialon 11-23 Basophils (Bld) [#/Vol] 10*3/uL [place] Basophils/100 WBC (Bld) 0 % 0 - 2 % [place] Differential Type NOT REPORTED [place] Eosinophils (Bld) [#/Vol] 0.10 10*3/uL [place] Eosinophils/100 WBC (Bld) 1 % 1 - 4 % [place] Erythrocyte distribution width (RBC) [Ratio] 14.2 % 11.8 - 14.4 % [place] Hematocrit (Bld) [Volume fraction] 29.5 % Low 36.3 - 47.1 % [place] Hemoglobin (Bld) [Mass/Vol] 9.8 g/dL Low 11.9 - 15.1 g/dL [place] Immature granulocytes (Bld) [#/Vol] 1 % High 0 [place] Immature granulocytes (Bld) [#/Vol] 0.10 10*3/uL [place] Interpretation and review of laboratory results Abnormal [place] Lymphocytes (Bld) [#/Vol] 1.31 10*3/uL [place] Lymphocytes/100 WBC (Bld) 18 % Low 24 - 43 % [place] MCH (RBC) [Entitic mass] 29.8 pg 25.2 - 33.5 pg [place] MCHC (RBC) [Mass/Vol] 33.2 g/dL 28.4 - 34.8 g/dL [place] MCV (RBC) [Entitic vol] 89.7 fL 82.6 - 102.9 fL [place] Monocytes (Bld) [#/Vol] 0.73 10*3/uL [place] Monocytes/100 WBC (Bld) 10 % 3 - 12 % [place] Platelet mean volume (Bld) [Entitic vol] 11.4 fL 8.1 - 13.5 fL [place] Platelets (Bld) [#/Vol] NOT REPORTED [place] Platelets (Bld) [#/Vol] 148 10*3/uL [place] RBC (Bld) [#/Vol] 3.29 10*6/uL Low 3.95 - 5.1 1 m/uL [place] RBC morphology finding Nom (Bld) NOT REPORTED [place] Segmented neutrophils/100 WBC (Bld) 70 % High 36 - 65 % [place] Segs Absolute 5.17 [place] WBC (Bld) [#/Vol] 7.4 10*3/uL [place] WBC (Bld) [#/Vol] 0.0 10*3/uL 0.0 per 10 0 WBC [place] WBC Morphology NOT REPORTED [place], [place] Comprehensive metabolic pane susie 12-21-2018 Albumin [Mass/Vol] 3.1 g/dL Low 3.5 - 5.2 g/dL [place] Albumin/Globulin [Mass ratio] 1.0 {ratio} [place] ALP [Catalytic activity/Vol] 124 U/L High 35 - 104 U/L [place] ALT [Catalytic activity/Vol] 7 U/L 5 - 33 U/L [place] Anion gap [Moles/Vol] 13 mmol/L 9 - 17 mmol/L [place] AST [Catalytic activity/Vol] 14 U/L <32 [place] Bilirubin Ql (U) 0.36 mg/dL 0.3 - 1.2 mg/dL [place] Bun/Cre Ratio 10 [place], [place] Calcium [Mass/Vol] 9.3 mg/dL 8.6 - 10. 4 mg/dL [place] Chloride [Moles/Vol] 103 mmol/L 98 - 10 7 mmol/L [place] CO2 [Moles/Vol] 19 mmol/L Low 20 - 31 mmol/L [place] Creatinine [Mass/Vol] 0.84 mg/dL 0.5 - 0.9 mg/dL [facility] GFR >60 >60 mL/min [facility] [place] GFR Non- >60 >60 mL/min [facility], [place] Glucose [Mass/Vol] 77 mg/dL 70 - 99 mg/dL [place], [place] Potassium [Moles/Vol] 3.8 mmol/L 3.7 - 5.3 mmol/L [place] Protein [Mass/Vol] 6.3 g/dL Low 6.4 - 8.3 g/dL [place] Sodium [Moles/Vol] 135 mmol/L 135 - 144 mmol/L [place] Urea nitrogen [Mass/Vol] 8 mg/dL 6 - 20 mg/dL [place] DRUG SCREEN MULTI URINEon Amphetamine Screen, Ur Negative NEGATIVE [facility], [place] Barbiturate Screen, Ur Negative NEGATIVE [facility], [place] Benzodiazepine Screen, Urine Negative NEGATIVE [facility], [place] Buprenorphine Urine Negative NEGATIVE [facility], [place] Cannabinoid Scrn, Ur Negative NEGATIVE [facility] [place] Cocaine Metabolite, Urine Negative NEGATIVE [facility], [place] MDMA, Urine NOT REPORTED NEGATIVE [facility] Methadone Screen, Urine Negative NEGATIVE [facility], [place] Methamphetamine, Urine Negative NEGATIVE [facility], [place] Opiates, Urine Negative NEGATIVE [facility] [place] Oxycodone Screen, Ur Negative NEGATIVE [facility] [place] Phencyclidine, Urine Negative NEGATIVE [facility] [place] Propoxyphene, Urine Negative NEGATIVE [facility], [place] Test Information NOT REPORTED [facility], [place] Tricyclic Antidepressants, Urine Negative NEGATIVE [facility], [place] Comment on above: Drug screen results are to be used for medical purposes only. All positive results are unconfirmed. Testing for employment or legal uses should be sent to a reference laboratory for confirmation. Fibrinogenon 12-21-2018 Fibrinogen 481 mg/dL High 185 - 451 mg/dL [place] Interpretation and review of laboratory results Abnormal [place] Lactate Dehydrogenaseon 11-23 LD 201 U/L 135 - 214 U/L [place] Metabolic Panelon 12-21-2018 GFR/1.73 sq M predicted among non-blacks MDRD (S/P/Bld) [Vol rate/Area] [place] Comment on above: Average GFR for 30-3 9 years old: 107 mL/min/1.73sq m Chronic Kidney Disease: <60 mL/min/1.73sq m Kidney failure: <15 mL/min/1.73sq m eGFR calculated using average adult body mass. Additional eGFR calculator available at: http://www.Patientco/multiple_crcl_2012.htm Stage 1: Some kidney damage normal GFR Stage 2: Mild kidney damage GFR 60-89 Stage 3: Moderate kidney damage GFR 30-59 Stage 4: Severe kidney damage GFR 15-29 Stage 5: Severe kidney damage GFR <15 ESRD - chronic treatment by dialysis or transplant Otheron 12-21-2018 Interpretation and review of laboratory results Abnormal [place] Protime-INRon 12-21-2018 INR Coag (PPP) [Relative time] 1.0 {INR} [place] PT Coag (PPP) [Time] 9.8 s [place], [place] Uric acidon 12-21-2018 Urate [Mass/Vol] 6.8 mg/dL High 2.4 - 5.7 mg/dL [place] APTTon 12-04-2018 aPTT Coag (Bld) [Time] 23.4 s [place], [place] CBC Auto Differentialon 11-21 Basophils (Bld) [#/Vol] 0.03 10*3/uL [place] Basophils/100 WBC (Bld) 0 % 0 - 2 % [place] Differential Type NOT REPORTED [place] Eosinophils (Bld) [#/Vol] 0.12 10*3/uL [place] Eosinophils/100 WBC (Bld) 1 % 1 - 4 % [place] Erythrocyte distribution width (RBC) [Ratio] 14.3 % 11.8 - 14.4 % [place] Hematocrit (Bld) [Volume fraction] 30.2 % Low 36.3 - 47.1 % [place] Hemoglobin (Bld) [Mass/Vol] 10.3 g/dL Low 11.9 - 15.1 g/dL [place] Immature granulocytes (Bld) [#/Vol] 2 % High 0 [place] Immature granulocytes (Bld) [#/Vol] 0.22 10*3/uL [place] Interpretation and review of laboratory results Abnormal [place] Lymphocytes (Bld) [#/Vol] 1.19 10*3/uL [place] Lymphocytes/100 WBC (Bld) 13 % Low 24 - 43 % [place] MCH (RBC) [Entitic mass] 30.4 pg 25.2 - 33.5 pg [place] MCHC (RBC) [Mass/Vol] 34.1 g/dL 28.4 - 34.8 g/dL [place] MCV (RBC) [Entitic vol] 89.1 fL 82.6 - 102.9 fL [place] Monocytes (Bld) [#/Vol] 0.74 10*3/uL [place] Monocytes/100 WBC (Bld) 8 % 3 - 12 % [place] Platelet mean volume (Bld) [Entitic vol] NOT REPORTED 8.1 - 13.5 fL [place] Platelets (Bld) [#/Vol] NOT REPORTED [place] Platelets (Bld) [#/Vol] See Reflexed IPF Result [place] RBC (Bld) [#/Vol] 3.39 10*6/uL Low 3.95 - 5.1 1 m/uL [place], [place] RBC morphology finding Nom (Bld) NOT REPORTED [place], [place] Segmented neutrophils/100 WBC (Bld) 75 % High 36 - 65 % [place] Segs Absolute 6.71 [place], [place] WBC (Bld) [#/Vol] 0.0 10*3/uL 0.0 per 10 0 WBC [place] WBC (Bld) [#/Vol] 9.0 10*3/uL [place] WBC Morphology NOT REPORTED [place] Comprehensive Metabolic Pane susie 12-04-2018 Albumin [Mass/Vol] 3.2 g/dL Low 3.5 - 5.2 g/dL [place] Albumin/Globulin [Mass ratio] 1.0 {ratio} [place] ALP [Catalytic activity/Vol] 106 U/L High 35 - 104 U/L [place] ALT [Catalytic activity/Vol] 7 U/L 5 - 33 U/L [place] Anion gap [Moles/Vol] 13 mmol/L 9 - 17 mmol/L [place] AST [Catalytic activity/Vol] 11 U/L <32 [place], [place] Bilirubin Ql (U) 0.25 mg/dL Low 0.3 - 1.2 mg/dL [place] Bun/Cre Ratio 7 Low [place], [place] Calcium [Mass/Vol] 9.8 mg/dL 8.6 - 10. 4 mg/dL [place], [place] Chloride [Moles/Vol] 103 mmol/L 98 - 10 7 mmol/L [place] CO2 [Moles/Vol] 19 mmol/L Low 20 - 31 mmol/L [place] Creatinine [Mass/Vol] 0.89 mg/dL 0.5 - 0.9 mg/dL [place] GFR >60 >60 mL/min [place] GFR Non- >60 >60 mL/min [place] Glucose [Mass/Vol] 103 mg/dL High 70 - 99 mg/dL [place] Interpretation and review of laboratory results Abnormal [place], [place] Potassium [Moles/Vol] 3.5 mmol/L Low 3.7 - 5.3 mmol/L [place] Protein [Mass/Vol] 6.5 g/dL 6.4 - 8.3 g/dL [place] Sodium [Moles/Vol] 135 mmol/L 135 - 144 mmol/L [place], [place] Urea nitrogen [Mass/Vol] 6 mg/dL 6 - 20 mg/dL [place] Fibrinogenon 12-04-2018 Fibrinogen 498 mg/dL High 185 - 451 mg/dL [place] Immature Platelet Fractionon 12-04-2018 Interpretation and review of laboratory results Abnormal [place], [place] Platelet, Fluorescence 137 Low [place], [place] Platelet, Immature Fraction 10.3 % 1.1 - 10.3 % [place] Lactate Dehydrogenaseon 11-21 LD 199 U/L 135 - 214 U/L [place] Metabolic Panelon 12-04-2018 GFR/1.73 sq M predicted among non-blacks MDRD (S/P/Bld) [Vol rate/Area] [place], [place] Comment on above: Stage 1: Some [...] body mass. Additional eGFR calculator available at: http://www.Patientco/multiple_crcl_2012.htm Microscopic Urinalysison Amorphous, UA NOT REPORTED None [place], [place] Bacteria, UA TRACE Abnormal None [place] Casts UA NOT REPORTED /LPF [place] Crystals UA NOT REPORTED None /HPF [place] Epithelial Cells UA 5 TO 10 [place], [place] Interpretation and review of laboratory results Abnormal [place], [place] Mucus, UA TRACE Abnormal None [place] Other Observations UA NOT REPORTED NOT REQ. [place] RBC (U) [#/Vol] None [place], [place] Renal Epithelial, Urine NOT REPORTED 0 /HPF [place], [place] Trichomonas, UA NOT REPORTED None [place], [place] WBC, UA 5 TO 10 [place], [place] Yeast, UA NOT REPORTED None [place], [place] - [place] Otheron 12-04-2018 Interpretation and review of laboratory results Abnormal [place], [place] Protein / creatinine ratio, urineon 12-04-2018 Creatinine, Ur 93.6 mg/dL 28 - 217 mg/dL [place], [place] Protein (U) [Mass/Vol] 14 mg/dL [place], [place] Comment on above: No normal range esta blished. Urine Total Protein Creatinine Ratio 0.15 [place] Protime-INRon 12-04-2018 INR Coag (PPP) [Relative time] 0.9 {INR} [place], [place] PT Coag (PPP) [Time] 9.4 s [place], [place] Uric Acidon 12-04-2018 Urate [Mass/Vol] 5.7 mg/dL 2.4 - 5.7 mg/dL [place], [place] Urinalysison 12-04-2018 Bilirubin Urine Negative NEGATIVE [place], [place] Color, UA YELLOW YELLOW [place], [place] Glucose, Ur Negative NEGATIVE [place] Interpretation and review of laboratory results Abnormal [place], [place] Ketones Ql (U) Negative NEGATIVE [place], [place] Leukocyte esterase Test strip Ql (U) MODERATE Abnormal NEGATIVE [place], [place] Nitrite, Urine Negative NEGATIVE [place] pH, UA 7.5 [place], [place] Protein (U) [Mass/Vol] Negative NEGATIVE [place] Specific [place], UA 1.010 [place], [place] Turbidity UA SLIGHTLY CLOUDY Abnormal CLEAR [place], [place] Urinalysis Comments NOT REPORTED [place], [place] Urine Hgb Negative NEGATIVE [place], [place] Urobilinogen, Urine Normal Normal [place], [place] Glucose tolerance, 1 houron 10-16-2018 GLU ADMN Glucola [place], [place] Glucose tolerance screen 50g 194 mg/dL High 70 - 135 mg/dL [place] Interpretation and review of laboratory results Abnormal [place], [place] Hemoglobinon 10-16-2018 Hemoglobin (Bld) [Mass/Vol] 10.8 g/dL Low 11.9 - 15.1 g/dL [facility] Interpretation and review of laboratory results Abnormal [facility] Vital Signs Date Time Vital Sign Value Performing Clinician Facility 05-26-2021 16:00-0400 Body height 160.02 cm Barbara Zhu Other [facility] Other 05-26-2021 16:00-0400 Body mass index (BMI) [Ratio] 32.59 kg/m2 Barbara Zhu Other [facility] Other 05-26-2021 16:00-0400 Body temperature 97.8 [degF] Barbara Zhu Other [facility] Other 05-26-2021 16:00-0400 Body weight 83.46 kg Barbara Zhu Other [facility] Other 05-26-2021 16:00-0400 SaO2% (BldA) [Mass fraction] 97 % Barbara Zhu Other [facility] Other 12-10-2020 16:15-0400 Body height 160.02 cm Katiuska Ho Other [facility] Other 12-10-2020 16:15-0400 Body mass index (BMI) [Ratio] 31.88 kg/m2 Katiuska Ho Other [facility] Other 12-10-2020 16:15-0400 Body temperature 98.2 [degF] Katiuska Ho Other [facility] Other 12-10-2020 16:15-0400 Body weight 81.65 kg Katiuska Ho Other [facility] Other 12-10-2020 16:15-0400 Respiratory rate 18 /min Katiuska Ho Other [facility] Other 12-10-2020 16:15-0400 SaO2% (BldA) [Mass fraction] 97 % Katiuska Ho Other [facility] Other 12-23-2018 08:46-0400 Body Temperature 97.59 [degF] [facility] [place] 12-23-2018 08:46-0400 BP Diastolic 77 mm[Hg] [facility] , [place] 12-23-2018 08:46-0400 BP Systolic 120 mm[Hg] [facility] , [place] 12-23-2018 08:46-0400 Pulse (Heart Rate) 81 /min [facility] [place] 12-23-2018 08:46-0400 Respiratory Rate 20 /min [facility] [place] 12-22-2018 02:11-0400 Pulse Oximetry 98 % [facility] , [place] 12-21-2018 15:35-0400 BMI (Body Mass Index) 37.91 kg/m2 [facility] 12-21-2018 15:35-0400 Body weight 97.07 kg [facility] , [place] 12-21-2018 15:35-0400 Height 160 cm [facility] [place] 12-06-2018 00:01-0400 Body Temperature 97.9 [degF] [facility] [place] 12-06-2018 00:01-0400 BP Diastolic 74 mm[Hg] [employer] [facility] , [place] 12-06-2018 00:01-0400 BP Systolic 121 mm[Hg] Freya Fischer [facility] , [place] 12-06-2018 00:01-0400 Pulse (Heart Rate) 105 /min Freya Fischer [facility], [place] 12-06-2018 00:01-0400 Respiratory Rate 18 /min Freya Fischer [facility], [place] 12-05-2018 23:44-0400 BMI (Body Mass Index) 37.2 kg/m2 Freya Fischer [facility], [place] 12-05-2018 23:44-0400 Body weight 95.25 kg Freya Fischer [facility] , [place] 12-05-2018 23:44-0400 Height 160 cm Freya Fischer [facility] , [place] 12-04-2018 11:48-0400 BP Diastolic 81 mm[Hg] [facility] , [place] 12-04-2018 11:48-0400 BP Systolic 120 mm[Hg] [facility] , [place] 12-04-2018 11:48-0400 Pulse (Heart Rate) 95 /min [facility], [place] 12-04-2018 11:15-0400 Body Temperature 97.81 [degF] [facility] 12-04-2018 11:15-0400 Respiratory Rate 18 /min [facility] 10-17-2018 16:30-0400 Body Temperature 97.9 [degF] [address] 10-17-2018 16:30-0400 BP Diastolic 84 mm[Hg] [address] 10-17-2018 16:30-0400 BP Systolic 128 mm[Hg] [address] 10-17-2018 16:30-0400 Pulse (Heart Rate) 86 /min [address] 10-17-2018 16:30-0400 Respiratory Rate 20 /min [address] Encounters Encounter Date Encounter Type Care Provider Facility Start: 03-23-2023 Clinisync Result Encounter Kika Guaman NP Work Phone: [facility] External Department Unsolicited Start: 03-23-2023 Clinisync Result Encounter Kika Guaman NP Work Phone: [facility] External Department Unsolicited Start: 03-23-2023 Patient encounter procedure Kika Guaman SURGICAL PROCESSOR Work Phone: [facility] Start: 03-23-2023 End: 03-23-2023 ambulatory KIKA FATOUMATAHHOLZ Not Available Start: 02-23-2023 End: 02-23-2023 ambulatory KIKA AICHHOLZ Not Available Start: 06-01-2022 End: 06-02-2022 ambulatory FALAFEL CART COOK KIKA AICHHOLZ Facility:[facility] Start: 04-04-2022 End: 04-04-2022 ambulatory FALAFEL CART COOK KIKA AICHHOLZ Facility:[facility] Start: 12-22-2021 End: 12-23-2021 ambulatory FALAFEL CART COOK KIKA AICHHOLZ Facility:[facility] Start: 10-09-2021 End: 10-09-2021 ambulatory FALAFEL CART COOK KIKA AICHHOLZ Facility:[facility] Start: 10-08-2021 End: 10-09-2021 ambulatory FALAFEL CART COOK KIKA AICHHOLZ Facility:[facility] Start: 09-28-2021 End: 09-28-2021 ambulatory FALAFEL CART COOK KIKA AICHHOLZ Facility:[facility] Start: 09-16-2021 End: 09-17-2021 ambulatory FALAFEL CART COOK KIKA AICHHOLZ Facility:[facility] Start: 05-26-2021 End: 05-26-2021 ambulatory Barbara Zhu Other [facility] Other Start: 05-26-2021 Office outpatient vi sit 25 minutes Barbara Zhu [facility] Start: 01-14-2021 End: 01-14-2021 ambulatory Katiuska Ho Other [facility] Other Start: 01-14-2021 Office outpatient vi sit 5 minutes Katiuska [place] [facility] Start: 12-10-2020 Office outpatient vi sit 15 minutes Katiuska [place] [facility] Start: 01-02-2020 End: 01-03-2020 Patient encounter procedure AMAYAROSE MARY FRANCO [facility] Start: 01-02-2020 End: 01-02-2020 Subsequent hospital visit by physician Kika PERALESZ Laboratory Comment on above: Amenorrhea; Positive urine test; Encounter for supervision of other normal in first trimester Start: 10-11-2019 End: 10-12-2019 Patient encounter procedure SY[facility] Start: 10-11-2019 End: 10-11-2019 Subsequent hospital visit by physician Kika Guaman [facility] Laboratory Comment on above: Screen for STD (sexu ally transmitted disease); Encounter for well woman exam with routine gynecological exam Start: 02-06-2019 End: 02-07-2019 Patient encounter procedure [facility] Start: 02-06-2019 End: 02-06-2019 Subsequent hospital visit by physician Kika Guaman Work Phone: [facility] Laboratory Comment on above: Irregular menses; Possible , not yet confirmed Start: 01-08-2019 End: 01-09-2019 Patient encounter procedure [facility] Start: 01-08-2019 End: 01-08-2019 Subsequent hospital visit by physician [facility] Lab Drawing Room [facility] Laboratory Comment on above: Gestational diabetes mellitus (GDM), Start: 12-21-2018 End: 12-23-2018 Evaluation and management of inpatient Amaya Chi [place] Work Phone: [facility] Labor and Delivery Start: 12-13-2018 End: 12-13-2018 Subsequent hospital visit by physician Kika Guaman [facility] Laboratory Comment on above: 35 weeks gestation o f Start: 12-05-2018 End: 12-06-2018 Subsequent hospital visit by physician Freya Fischer Work Phone: [facility] Labor and Delivery Start: 12-04-2018 End: 12-04-2018 Subsequent hospital visit by physician Amaya Franco Work Phone: [facility] Labor and Delivery Start: 10-25-2018 End: 10-25-2018 Subsequent hospital visit by physician [facility] Diabetes Education Room [facility] Diabetic Education Comment on above: Arrived Start: 10-17-2018 End: 10-17-2018 Subsequent hospital visit by physician Flaquita Op Treatment Rm 01 [facility] Specialty Clinic (MOB) Start: 10-16-2018 End: 10-16-2018 Subsequent hospital [facility] Comment on above: 27 weeks gestation o f ; Rh negative state in antepartum period, third trimester RhD negative [place] Procedures Date Procedure Procedure Detail Performing Clinician Start: 03-23-2023 IGP,APTIMA HPV,AGE GDLN Kika Guaman SURGICAL PROCESSOR Work Phone: Start: 03-23-2023 Microscopic observat ion [Identifier] in Cervix by Cyto stain Kika Deniz SURGICAL PROCESSOR Work Phone: Start: 01-02-2020 Obstetric panel KATHLEE N POOL [...] THLEEN POOL Start: 01-02-2020 Antibody screen Kika Patel [facility] Start: 01-02-2020 Blood typing serologic abo Amaya [...] Gonadotropin chorion ic quantitative Amaya E Pool DEVELOPMENT EDITOR - CNM Work Phone: Start: 01-08-2019 Glucose quantitative blood xcpt reagent strip AMAYA POOL Start: 01-08-[address] gtt 3 specimens AMAYA POOL Start: 01-08-2019 GLUCOSE, WHOLE BLOOD Ka marychuy Chi Pool Work Phone: Start: 01-08-[address] gtt 3 specimens Amaya Chi Pool Work Phone: Start: 12-22-2018 GLUCOSE, WHOLE BLOOD Maureen Chi Pool Work Phone: Start: 12-21-2018 Assay of blood/uric acid Amaya E Pool Work Phone: Start: 12-21-2018 Blood count complete auto&auto difrntl wbc Amaya E Pool Work Phone: Start: 12-21-2018 Comprehensive metabo lic panel Amaya E Pool Work Phone: Start: 12-21-2018 Fibrinogen activity Mar galvan E Pool Work Phone: Start: 12-21-2018 Lactate dehydrogenase ldh Amaya E Pool Work Phone: Start: 12-21-2018 Prothrombin time Dunia Chi Pool Work Phone: Start: 12-21-2018 Thromboplastin time partial plasma/whole blood Amaya Chi Pool Work Phone: Start: 12-21-2018 Drug screen class list a Amaya Franco Work Phone: Start: 12-06-2018 nonstress test Michel steve Fischer Work Phone: Start: 12-04-2018 Assay of blood/uric acid Amaya Chi Pool Work Phone: Start: 12-04-2018 Blood count complete auto&auto difrntl wbc Amaya E Pool Work Phone: Start: 12-04-2018 Comprehensive metabo lic panel Amaya E Pool Work Phone: Start: 12-04-2018 Fibrinogen activity Mar galvan E Pool Work Phone: Start: 12-04-2018 IMMATURE PLATELET FRACTION Amaya E Pool Work Phone: Start: 12-04-2018 Lactate dehydrogenase ldh Amaya Franco Work Phone: Start: 12-04-2018 Prothrombin time Daynae en Arti Franco Work Phone: Start: 12-04-2018 Thromboplastin time [...] - Td) DTaP/Tdap/Td vaccine (3 - Td) [place], [place] Start: 12-23-2028 DTaP/Tdap/Td vaccine (9 - Td) DTaP/Tdap/Td vaccine (9 - Td) [place] Start: 03-23-2026 Screening for malign ant neoplasm of cervix [facility] Start: 02-10-2026 DTaP/Tdap/Td vaccine (2 - Td) DTaP/Tdap/Td vaccine (2 - Td) [place] Start: 10-10-2024 Screening for malign ant neoplasm of cervix Cervical cancer screen [place], [place] Start: 08-21-2023 Influenza vaccination Influenza Vacc ine (#1) [facility] Comment on above: Postponed from 09/01 /2023 (Patient Refused) Start: 04-20-2023 End: 04-20-2023 Patient encounter procedure 04/20/2023 8:40 AM EST Office Visit [facility] [address] [place] [address] Kika Guaman NP [address] [place] [address] [facility] Start: 10-03-2022 Cervical cancer screen Cervical canc er screen [place], [place] Start: 10-03-2022 Screening for malign ant neoplasm of cervix [facility] Start: 10-16-2020 End: 10-16-2020 Office Visit 10/16/2020 Office Visit Obstetrics and Gynecology Amaya Franco DEVELOPMENT EDITOR - CNM [address] [place], [place] [id number] [facility] OBSTETRICS & [facility]YNECOLOGY Start: 01-21-2020 End: 01-21-2020 Routine 01/21/2020 Routine Obstetrics and Gynecology Amaya Franco APRN - CNAurelio [address] [place] [address] [facility] OBSTETRICS & [facility]YNECOLOGY Start: 01-16-2020 End: 01-16-2020 Ancillary Procedure 01/16/2020 Ancillary Procedure Obstetrics and Gynecology [facility] OBSTETRICS & [facility]YNECOLOGY Start: 12-22-2019 Creatinine measurement Creatinine mo nitoring [place], [place] Start: 12-22-2019 Creatinine monitoring Creatinine mon [place] Start: 12-22-2019 Potassium monitoring Potassium monit [place], [place] Start: 12-05-2019 Creatinine monitoring Creatinine mon [place] Start: 12-05-2019 Potassium monitoring Potassium monit [place] Start: 10-23-2019 Influenza vaccination Flu vaccine (# 1) [place] Start: 02-26-2019 Influenza vaccination Flu vaccine (# 1) [place] Comment on above: Postponed from 10/22 (Not Indicated) Start: 02-08-2019 End: 02-08-2019 ambulatory 02/08/2019 Visit Obstetrics and Gynecology Amaya Franco DEVELOPMENT EDITOR - CNM [address] [address] [phone] [facility] [employer] TEAM LEADER Start: 02-05-2019 End: 02-05-2019 Visit 02/05/2019 Visit Obstetrics and Gynecology Amaya Franco DEVELOPMENT EDITOR - CNM [address] [place] [address] [phone] [facility] [employer] TEAM LEADER Start: 01-25-2019 Varicella Vaccine (1 of 2 - 2-dose childhood series) Varicella Vaccine (1 of 2 - 2-dose childhood series) [place] Comment on above: Postponed from 03/01 (Not Indicated) Start: 01-04-2019 End: 01-04-2019 Visit 01/04/2019 Visit Obstetrics and Gynecology Amaya Franco APRN - CN [address] [place] [address] [phone] [facility] [employer] TEAM LEADER Start: 12-25-2018 Influenza vaccination Flu vaccine (# 1) [place] Comment on above: Postponed from 10/22 (Not Indicated) Start: 12-25-2018 Varicella Vaccine (1 of 2 - 13+ 2-dose series) Varicella Vaccine (1 of 2 - 13+ 2-dose series) [place] Comment on above: Postponed from 03/01 (Not Indicated) Start: 12-21-2018 End: 12-21-2018 Routine 12/21/2018 Routine Obstetrics and Gynecology Amaya Franco DEVELOPMENT EDITOR - CNM [address] [place] [address] [phone] [facility] [employer] TEAM LEADER Start: 12-14-2018 End: 12-14-2018 Routine 12/14/2018 Routine Obstetrics and Gynecology Amaya Franco DEVELOPMENT EDITOR - CNM [address] [place] [address] [phone] [facility] [employer] TEAM LEADER Start: 11-06-2018 End: 11-06-2018 Routine 11/06/2018 Routine Obstetrics and Gynecology Salvador, Amaya ELOUIE - ELAINA [address] [place] [address] [phone] [facility] [employer] TEAM LEADER Start: 10-22-2018 Influenza vaccination Flu vaccine (# 1) [place] Start: 2000 Varicella Vaccine (1 of 2 - 13+ 2-dose series) Varicella Vaccine (1 of 2 - 13+ 2-dose series) [place] Start: 1988 Varicella vaccine (1 of 2 - 2-dose childhood series) Varicella vaccine (1 of 2 - 2-dose childhood series) [place] [employer] Phone: End: 10-11-2019 C.trachomatis N.gonorrhoeae DNA, Thin Prep C.trachomatis N.gonorrhoeae DNA, Thin Prep Microbiology Routine Screen for STD (sexually transmitted disease) 1 Occurrences starting 10/11/2019 until 10/11/2019 [place] Comment on above: 1 Occurrences starti ng 10/11/2019 until 10/11/2019 C.trachomatis N.gonorrhoeae DNA, Thin Prep C.trachomatis N.gonorrhoeae DNA, Thin Prep Microbiology Routine Screen for STD (sexually transmitted disease) 10/11/2019 12:16 PM EDT [place] End: 01-02-2020 C.trachomatis N.gonorrhoeae DNA, Urine C.trachomatis N.gonorrhoeae DNA, Urine Microbiology Routine Amenorrhea Positive urine test Encounter for supervision of other normal in first trimester 1 Occurrences starting 01/02/2020 until 01/02/2020 [place] Comment on above: 1 Occurrences starti ng 01/02/2020 until 01/02/2020 C.trachomatis N.gonorrhoeae DNA, Urine C.trachomatis N.gonorrhoeae DNA, Urine Microbiology Routine Amenorrhea Positive urine test Encounter for supervision of other normal in first trimester 01/02/2020 4:57 PM EST [place] End: 01-02-2020 Culture, Urine Culture, Urine Microbiology Routine Amenorrhea Positive urine test Encounter for supervision of other normal in first trimester 1 Occurrences starting 01/02/2020 until 01/02/2020 [facility] 1 Occurrences starti ng 01/02/2020 until 01/02/2020 Culture, Urine Culture, Urine Microbiology Routine Amenorrhea Positive urine test Encounter for supervision of other normal in first trimester 01/02/2020 4:[address] [facility] End: 10-11-2019 Cytopathology procedure, preparation of smear, genital source PAP SMEAR Lab Routine Encounter for well woman exam with routine gynecological exam 1 Occurrences starting 10/11/2019 until 10/11/2019 [facility] Comment on above: 1 Occurrences starti ng 10/11/2019 until 10/11/2019 nonstress test nonst ress test OB Routine Daily until discontinued starting 12/06/2018, 1 completed [facility] [place] Comment on above: Daily until disconti nued starting 12/06/2018, 1 completed End: 12-04-2018 nonstress test nonstress test OB Routine One Time for 1 Occurrences starting 12/04/2018 until 12/04/2018 [facility] Comment on above: One Time for 1 Occur rences starting 12/04/2018 until 12/04/2018 End: 01-02-2020 HbA1c (Bld) [Mass fraction] Hemoglobin A1C Lab Routine Amenorrhea Positive urine test Encounter for supervision of other normal in first trimester 1 Occurrences starting 01/02/2020 until 01/02/2020 [facility] Comment on above: 1 Occurrences starti ng 01/02/2020 until 01/02/2020 HbA1c (Bld) [Mass fraction] Hemoglobin A1C Lab Routine Amenorrhea Positive urine test Encounter for supervision of other normal in first trimester 01/02/2020 4:[address] [facility] Nonrebreather mask oxygen Nonrebreather mask oxygen Respiratory Care Routine As directed - RT (PRN) until discontinued starting 12/05/2018 [facility] Comment on above: As directed - RT (CO N) until discontinued starting 12/05/2018 End: 12-22-2018 POCT Glucose POCT Glucose Point of Care Testing Routine One Time for 1 Occurrences starting 12/22/2018 until 12/22/2018 [place] Comment on above: One Time for 1 Occur rences starting 12/22/2018 until 12/22/2018 RHOGAM ANTEPARTUM RHOGAM ANTEPAR ANDRA Blood Bank Routine 27 weeks gestation of Rh negative state in antepartum period, third trimester 10/16/2018 7:08 PM EDT [place] RHOGAM RHOGAM POSTPAR [facility] Blood Bank [employer] Label Print 12/22/2018 2:55 PM EDT [place] End: 12-13-2018 Strep B Screen, Vaginal / Rectal Strep B Screen, Vaginal / Rectal Microbiology Routine 35 weeks gestation of 1 Occurrences starting 12/13/2018 until 12/13/2018 [place] Comment on above: 1 Occurrences starti ng 12/13/2018 until 12/13/2018 Strep B Screen, Vagi nal / Rectal Strep B Screen, Vaginal / Rectal Microbiology Routine 35 weeks gestation of 12/13/2018 4:12 PM EDT [place], [place] End: 12-05-2018 SVE SVE Point of Care Testing Routine One Time for 1 Occurrences starting 12/05/2018 until 12/05/2018 [place] Comment on above: One Time for 1 Occur rences starting 12/05/2018 until 12/05/2018 Immunizations Immunization Date Immunization Notes Care Provider Sarah gloria 12-23-2018 tetanus toxoid, redu carolina diphtheria toxoid, and acellular pertussis vaccine, adsorbed [place], [place] 12-22-2018 diphtheria, tetanus toxoids and acellular pertussis vaccine, unspecified formulation [place], [place] 02-11-2016 tetanus toxoid, redu carolina diphtheria toxoid, and acellular pertussis vaccine, adsorbed [place], [place] 05-08-2014 RHO(D) immune globul in - IM [place], [place] 05-30-2010 tetanus toxoid, redu carolina diphtheria toxoid, and acellular pertussis vaccine, adsorbed Kika Deniz SURGICAL PROCESSOR Work Phone: [facility] 05-15-2002 tetanus toxoid, adsorbed Kika Guaman SURGICAL PROCESSOR Work Phone: [facility] 06-19-1999 measles, mumps and rubella virus vaccine Kika Aichholz SURGICAL PROCESSOR Work Phone: [facility] 08-20-1992 diphtheria, tetanus toxoids and acellular pertussis vaccine, unspecified formulation Kika Aichholz SURGICAL PROCESSOR Work Phone: [facility] 08-20-1992 poliovirus vaccine, unspecified formulation Kika Aichholz SURGICAL PROCESSOR Work Phone: [facility] 09-17-1988 diphtheria, tetanus toxoids and acellular pertussis vaccine, unspecified formulation Kika Aichholz SURGICAL PROCESSOR Work Phone: [facility] 09-17-1988 haemophilus influenz ae type b vaccine, conjugate unspecified formulation Kika Aichholz SURGICAL PROCESSOR Work Phone: [facility] 09-17-1988 measles, mumps and rubella virus vaccine Kika Aichholz SURGICAL PROCESSOR Work Phone: [facility] 1987 diphtheria, tetanus toxoids and pertussis vaccine Kika Aichholz SURGICAL PROCESSOR Work Phone: [facility] 1987 trivalent poliovirus vaccine, live, oral Kika Aichholz SURGICAL PROCESSOR Work Phone: [facility] 1987 diphtheria, tetanus toxoids and acellular pertussis vaccine, unspecified formulation Kika Aichholz SURGICAL PROCESSOR Work Phone: [facility] 1987 poliovirus vaccine, unspecified formulation Kika Aichholz SURGICAL PROCESSOR Work Phone: [facility] 1987 diphtheria, tetanus toxoids and acellular pertussis vaccine, unspecified formulation Kika Aichholz SURGICAL PROCESSOR Work Phone: [facility] 1987 poliovirus vaccine, unspecified formulation Kika Aichholz SURGICAL PROCESSOR Work Phone: [facility] 1987 diphtheria, tetanus toxoids and acellular pertussis vaccine, unspecified formulation Kika Aichholz SURGICAL PROCESSOR Work Phone: [facility] 1987 poliovirus vaccine, unspecified formulation Kika Aichholz SURGICAL PROCESSOR Work Phone: [facility] Payers Date Payer Category Payer Managed Care HMO (unspecified) [employer]ESES [id number] 2020-Present [address] [place] [address] HMO [id number] 2017 Medicaid [employer] [employer] [id number] 2017-Present [address] [place] [address] [id number] 2015 Unknown [facility] xxxxxxxxxxxx 2015-Present [phone] [address] [place] [address] xxxxxxxxxxxx [id number] 1987 Unknown [id number] .[id number] 1987 Unknown [id number] .173 1987 Unknown [id number] [id number] .173 1987 Unknown [id number] [id number] .173 1987 Unknown [id number] [id number] .173 1987 Unknown [id number] [id number] .593 1987 Unknown [id number] [id number] .593 1987 Unknown [id number] 2.16.840.1.237206.3.579.2 .593 1987 Unknown [id number] [id number] .593 1987 Unknown [id number] 2.16.840.1.282895.3.579.2 .593 1987 Unknown [id number] 2.16.840.1.160797.3.579.2 .593 1987 Unknown [id number] [id number] .593 1987 Unknown [id number] 2.16.840.1.140664.3.579.2 .1259 1987 Unknown [id number] [id number] .1259 1959 Private Health Insurance [id number] 1959 Unknown [id number] Social History Date Type Detail Facility Start: 08-28-2018 End: 07-30-2022 Tobacco smoking status [facility] Never smoker [facility] Start: 08-28-2018 End: 02-22-2023 Alcohol intake Not Currently [facility] Start: 03-28-2014 Alcohol Comment rarely [place], [place] Start: 04-20-2018 [facility] [place] Start: 1985 Sex Assigned At Not on file M [place], [place] Start: 10-11-2019 End: 01-02-2020 Tobacco use and exposure Never used [place], [place] Start: 01-04-2019 End: 10-11-2019 Alcohol intake Ex-drinker (finding) [facility] Exposure to SARS-CoV -2 (event) Not sure [place], [place] Start: 03-23-2023 Alcohol intake Lifetime non-d smitha (finding) [facility] Start: 02-22-2023 End: 03-23-2023 History of Social function [facility] Within the last year , have you been afraid of your partner or ex-partner? No [facility] How often do you att end meetings of the clubs or organizations you belong to? Patient refused [facility] Are you now , , , , never or living with a partner? [facility] How often to you hav e a drink containing alcohol? Monthly or less [facility] How many standard dr inks containing alcohol do you have on a typical day? 1 or 2 [facility] How often do you hav e 6 or more drinks on 1 occasion? Less than monthly [facility] How hard is it for y ou to pay for the very basics like food, housing, medical care, and heating Hard [facility] Do you feel stress - tense, restless, nervous, or anxious, or unable to sleep at night because your mind is troubled all the time - these days [OSQ] Very much [facility] (I/We) worried wheth er (my/our) food would run out before (I/we) got money to buy more. Often true [facility] In the past 12 month s, was there a time when you were not able to pay the mortgage or rent on time? Yes [facility] Medical Equipment Procedure Code Equipment Code Equipment Origin al Text Equipment Identifier Dates Pt to test four times daily fastin, 2 hr pp [id number] Start: 10-18-2018 End: 12-23-2018 1 each by Other route 4 times daily One glucometer, test strips, lancets - per insurance coverage [id number] Start: 10-18-2018 End: 10-18-2019 use to test BLOO D SUGAR FOUR TIMES DAILY [id number] Start: 10-23-2018 End: 12-23-2018 Evaluation note 05-26-2021 [...] provided x 1 day, no extension allowed [facility] Other Evaluation note 01-14-2021 Note Date & [...] Patient care instructions given in writting by [facility] Care At Home document. [facility] Other Evaluation note 12-10-2020 Note Date & [...] Patient care instructions given in writting by [facility] Care At Home document. [facility] Other Evaluation note Note Date & Type Note Facility Evaluation note Diagnosis Irregular menses Irregular menstrual cycle Possible , not yet confirmed examination or test, unconfirmed documented in this encounter [facility] Phone: History general Narrative - Reported Note Date & Type Note Facility History general Narrative - Reported Type Surgical History laparoscopy Knees Right and Lef t Hospitalization History Childbirth Natural x4 [facility] Other History general Narrative - Reported Note Date & Type Note Facility History general Narrative - Reported Type Medical History herpes Surgical History laparoscopy Knees Right and Lef t Surgical History cholecystectomy Surgical History appendectomy Surgical History right thumb\ Hospitalization History Childbirth Natural x4 [facility] Other Assessments Diagnosis 27 weeks gestation of [...] Diagnosis Gestational diabetes mellitus (GDM), Advance Directives Documents on File Type Date Recorded Patient [employer] Advance Directives and Living Will Power of Radar Mechanic Latest Code Status on File Code Status [...] Documents on File Type Date Recorded Patient [employer] ACP-Advance Directive ACP-Power of Radar Mechanic Latest Code Status on File Code Status Date Activated Date Inactivated Comments Full Code 12/22/2018 3:25 AM 12/23/2018 5:13 PM Full Code 12/21/2018 3:33 PM 12/22/2018 3:25 AM Full Code 12/05/2018 11:33 PM 12/06/2018 3:01 AM Latest Code Status on File Code Status Date Activated Date Inactivated Comments Full Code 12/22/2018 3:25 AM Discharge Instructions * Instructions* Alondra Flores RN - 12/06/2018 OUTPATIENT DISCHARGE Jennifer Calvert [facility] or [place] Dr. Galan Freya Husain [facility] Anahy Mahmood [facility] Dr. Mira Hagen Freya Conde [facility] ACTIVITY LIMITATIONS: ( z )Up and [...] Follow-up with your OB doctor as specified. [facility] OB Department phone: Dr. Danis Franco [facility] Dr. Pete Fischer [place] [id number] [place] or [place] DIET Eat a well balanced diet focusing on foods high in fiber and protein. Drink plenty of fluids especially water. To avoid constipation you may take a mild stool softener as recommended by your doctor or rn procedure. ACTIVITY Gradually increase your activity. Resume exercise regimen only after advice by your doctor or rn procedure. Avoid lifting anything heavier than a gallon of milk for SIX weeks. Avoid driving until your doctor or rn procedure has given their approval. Rise slowly from [...] have thoughts of harming yourself or your infant. If will not stop crying, contact another adult for help or place infant in their crib on their back and [...] medications as recommended by your doctor or rn procedure for pain If you develop a warm, [...] vitamins as directed by your doctor or rn procedure. Refer to the booklet in the folder/binder for more information. If you feel you need more assistance or have questions, please call Gia Walton IBCLC, insurance consultant, at or the OB department to [...] they become loose or soiled. If used, [place] should be removed by your care provider. 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 Education session duration: 70 minutes; ([id number]). Reminder to ordering Physician/Provider: Diabetes and CKD [...] Amaya Franco APRN - CNM [address] [place] [address] [place] Reason Comments Gestational Diabetes Status Reason Specialty Diagnoses / Procedures Referred By Contact Referred To Contact Open Specialty Services Required Diabetes Services Diagnoses Abnormal GTT (glucose tolerance test) Amaya Franco APRN - CNM [address] [place] [id number] [facility] Diabetic Education [address] [place] [address] Reason Comments Hypertension INFORMATION SOURCE (unrecogn ized section and content) DATE CREATED AUTHOR 01/04/2020 [facility] DATE CREATED AUTHOR AUTHOR'S ORGANIZ ATION 07/03/2022 [facility] DATE CREATED AUTHOR AUTHOR'S ORGANIZ ATION 03/24/2023 [facility] dical Specialists EPIC Care Teams (unrecognized sec tion and content) Food Mobile Driver Relationship Specialty Start Date End Date Benji Hinojosa MD [address] [place] [address] PCP - General Cardiology 07/30/22 Kika Guaman NP [address] [place] [address] Referring Physician Nurse Practitioner 07/30/22 FOR RECORDS PERTAINING TO PATIENTS WHO ARE [...] BE BASED ON THE PRIMARY CLINICAL RECORDS. [employer] [facility]. provides no warranty or guarantee of the accuracy or completeness of information in this document.
[2023-04-05 19:37] VITALS: BP 148/99; PULSE 87; RESP 16; TEMP 36.7; O2SAT 99; BMI 35.3
--- NOTE | 2023-04-05 19:48 | CT_ITS ---
The [address] [address] Patient Name: ROBLES YEN MRN: [id number] date: 1985 Sex: F Assigned Patient Location: ER Current Patient Location: ER Accession/Order Number: [id number] Exam Date: 04/05/2023 20:06 Report Date: 04/05/2023 20:29 At the request of: LYLA MATHEW Procedure: CT head/brain wo con EXAM: CT head/brain wo con HISTORY: headache COMPARISON: None. TECHNIQUE: Unenhanced transaxial tomographic sections obtained from the vertex through the posterior fossa. FINDINGS: No midline shift, mass effect or intracranial hemorrhage are identified. The mastoid air cells and visualized paranasal sinuses are clear. CT/CT head/brain wo con IMPRESSION: Unremarkable unenhanced head CT. Electronically authenticated by: GUILLERMINA WORLEY Date: 04/05/2023 20:29
--- NOTE | 2023-04-05 19:49 | ED_ITS ---
HPI - General Adult General Chief complaint: Headache Stated complaint: Headache Time Seen by Provider: 04/05/23 19:40 Source: patient Mode of arrival: walk-in Limitations: no limitations History of Present Illness HPI narrative: Patient is a 38-year-old female who presents to the emergency department for a migraine. She states she has relatively frequent similar headaches in the past. She states they are located behind the left eye with radiation to the left side of the face and mu-ism and into the left side of the neck. She denies any falls or injuries. She states she took her home migraine medications without improvement. She has had 5 episodes of emesis today. She reports mildly blurry vision in the left eye. No new fevers, chills, upper respiratory symptoms. She is not concerned for . She states her headaches are managed by her local nurse practitioner. She has never had imaging of her head despite having migraines for many years. Related Data Home Medications Medication Instructions Recorded Confirmed liraglutide (weight loss) 3 mg/0.5 3 mg subcut Q24H 04/05/23 04/05/23 mL (18 mg/3 mL) subcut pen injector (Saxenda) topiramate 25 mg tablet 50 mg PO Q12H PRN headache 04/05/23 04/05/23 Previous Rx's Medication Instructions Recorded aaribioibh-lwcaaotsycyht-bmgomzno 1 cap PO Q6H PRN headache 2 days 04/05/23 50 mg-300 mg-40 mg capsule #10 caps (Fioricet) ondansetron 4 mg disintegrating 4 mg PO Q6H PRN nausea and 04/05/23 tablet vomiting #12 tabs Allergies Allergy/AdvReac Type Severity Reaction Status Date / Time No Known Drug Allergies Allergy Verified 04/05/23 19:36 Review of Systems ROS Constitutional Denies: fever or chills Eyes Reports: blurry vision Ears, nose, mouth, and throat Denies: throat pain or nasal congestion Cardiovascular Denies: chest pain Respiratory Denies: shortness of breath Gastrointestinal Reports: nausea and vomiting; Denies: abdominal pain Musculoskeletal Reports: neck pain; Denies: back pain Integumentary/Breast Denies: rash Neurological Reports: headache; Denies: numbness in extremities or weakness in extremities Hematologic/Lymphatic Denies: easy bruising or easy bleeding PFSH PFSH Social History Smoking status: Never smoker Exam Narrative Exam Narrative: Gen.: Awake, alert, in no distress Head: Normocephalic, atraumatic ENT: Moist mucous membranes, Bilateral TMs clear, no nuchal rigidity Respiratory: No respiratory distress Extremities: Moves extremities equally Psych: Normal mood and affect Neuro: No focal neuro deficit Skin: Warm, dry, intact Constitutional Vital Signs, click to edit/add: Last Vital Signs Temp 98.0 F 04/05/23 19:37 Pulse 70 04/05/23 21:07 Resp 18 04/05/23 21:07 BP 133/88 04/05/23 21:07 Pulse Ox 98 04/05/23 21:07 O2 Del Method Room Air 04/05/23 21:07 Course Vital Signs Vital signs: Vital Signs Temperature 98.0 F 04/05/23 19:37 Pulse Rate 87 04/05/23 19:37 Respiratory Rate 16 04/05/23 19:37 Blood Pressure 148/99 H 04/05/23 19:37 Pulse Oximetry 99 04/05/23 19:37 Oxygen Delivery Method Room Air 04/05/23 19:37 Temperature 98.0 F 04/05/23 19:37 Pulse Rate 70 04/05/23 21:07 Respiratory Rate 18 04/05/23 21:07 Blood Pressure 133/88 04/05/23 21:07 Pulse Oximetry 98 04/05/23 21:07 Oxygen Delivery Method Room Air 04/05/23 21:07 Medical Decision Making MDM Narrative Medical decision making narrative: CT of the brain was performed as the patient has never had 1 previously and has a history of frequent headaches. This shows no evidence of acute process. Patient was treated with IV fluids, Reglan, Benadryl, Toradol. I reevaluated the patient and she states she is feeling better and is ready to go home. Her vital signs are within normal limits. She is discharged home with a prescription of Fioricet and Zofran. Follow-up with PCP and return to the ER if symptoms change or worsen Medical Records Medical records reviewed: Yes I reviewed the patient's medical records Imaging Data CT scan - head: Attestation: I have reviewed the pertinent imaging results. Radiologist's impression: ITS Impressions Head CT 04/05/23 19:48 IMPRESSION: Unremarkable unenhanced head CT. Electronically authenticated by: GUILLERMINA WORLEY Date: 04/05/2023 20:29 Discharge Plan Discharge Chief Complaint: Headache Clinical Impression: Headache Patient Disposition: Home, Self-Care Time of Disposition Decision: 20:43 Condition: Good Mode of Transportation: Private Vehicle Prescriptions / Home Meds: New shvklquiet-htcqyhbwfscmm-gqbv [Fioricet] 50-300-40 mg capsule 1 cap PO Q6H PRN (Reason: headache) 2 Days Qty: 10 0RF Rx Instructions: DX: R51 ondansetron 4 mg tablet,disintegrating 4 mg PO Q6H PRN (Reason: nausea and vomiting) Qty: 12 0RF No Action topiramate 25 mg tablet 50 mg PO Q12H PRN (Reason: headache) Saxenda 3 mg/0.5 mL (18 mg/3 mL) pen injector 3 mg SUBCUT Q24H Instructions: Acute Headache (ED) Stand Alone Forms: Portal Instructions Referrals: Kika Guaman [employer]LY[employer] [Primary Care Provider] - 1 week Discharge Date/Time: 04/05/23 21:00
[2023-04-05] MEDS: KETOROLAC TROMETHAMINE 30 MG/ML VIAL IVP (20:22)
[2023-04-05] MEDS: DIPHENHYDRAMINE HCL 50 MG/ML (1ML) VIAL 25 MG IV (20:22)
[2023-04-05] MEDS: METOCLOPRAMIDE HCL 10 MG/2 ML VIAL IVP (20:22)
[2023-04-05] MEDS: 0.9 % SODIUM CHLORIDE 1,000 ML 1000 ML IV (20:23)
[2023-04-05 21:07] VITALS: BP 133/88; PULSE 70; RESP 18; O2SAT 98
== END 2023-04-05 21:00 | disposition home or self-care (01) ==
PROVIDERS: Emergency Provider Emergency Medicine; PCP Nurse Practitioner
DX: R51.9 Headache, unspecified (principal); Z79.899 Other long term (current) drug therapy
CPT/HCPCS: 70450; 96374; 96375; 99285; J1200; J1885; J2765

== ENCOUNTER 2023-04-13 09:00 | Outpatient (OUT) | payer OTHER, SELFPAY ==
--- NOTE | 2023-04-13 09:03 | MM_ITS ---
Patient Name: ROBLES YEN MR#: [id number] : 1985 Exam Date: 04/13/2023 Ordering Doctor: GONZALEZ Guaman CNP RADIOLOGY REPORT PROCEDURE: MM TOMOSYNTHESIS DIAGNOSTIC BI, 04/13/2023, 09:16 US BREAST RT LIMITED, 04/13/2023, 09:34 COMPARISON: None. INDICATIONS: Right Breast Lump Calculator Name NCI Breast Cancer Risk Assessment Tool 5 Year Breast Cancer Risk 0.30% Lifetime Breast Cancer Risk 10.00% Personal Breast Cancer No Personal Ovarian Cancer No Treatments None Family Cancers Aunt-maternal with breast cancer at age 50; Aunt-maternal with breast cancer at age 22; Uncle-maternal with prostate cancer at age 70. LOCATION: [facility] BREAST COMPOSITION: Scattered areas fibroglandular density. FINDINGS: DIAGNOSTIC CATEGORY 1--NEGATIVE. RIGHT BREAST: No significant suspicious finding on mammographic evaluation. Ultrasound evaluation demonstrates normal appearing fibroglandular tissue within the upper-outer quadrant or patient localizes the palpable lump. LEFT BREAST: No significant suspicious finding. RECOMMENDATIONS: CLINICAL EVALUATION. PLEASE NOTE: A NORMAL MAMMOGRAM DOES NOT EXCLUDE THE POSSIBILITY OF BREAST CANCER. A CLINICALLY SUSPICIOUS PALPABLE LUMP SHOULD BE BIOPSIED. Dictated by: Robert Hester M.D. on 04/13/2023 at 16:03 Approved by: Robert Hester M.D. on 04/13/2023 at 16:07
--- OUTSIDE RECORDS SUMMARY | 2023-04-13 09:04 | XMS_ITS | CCD ---
Author Name Unknown Address [address] [place] [address] Organization [facility] Care Team Providers Care Imaging Technologist Name Role Phone Unavailable Primary Care Provider UnavailKika Huitron Primary Care Provider Kika Guaman Primary Care Provider POOL, AMAYA E Referring Unavailable REYNA GUAMANA Larry Primary Care Unavailable POOL, AMAYA E Referring Unavailable KIKA GUAMAN Primary Care Unavailable POOL, AMAYA E Referring Unavailable REYNA GUAMANA Larry Primary Care Unavailable POOL, AMAYA E Referring Unavailable IKKA GUAMAN Primary Care Unavailable POOL, AMAYA E Referring Unavailable KIKA GUAMAN Primary Care Unavailable Kika Guaman Primary Care Provider [phone] GeorgiaKatiuska sampson Unavailable Barbara Zhu Unavailable AICHHOLZ, SHIRT CLEANER KIKA Primary Care Unavailable DR JOSSY FIGUEROA Admitting Unavailbud FIGUEROA, DR JOSSY Tran Attending Unavailabl e ALLYSSA ., KAROL Consulting Unavailable AICHHOLZ, SHIRT CLEANER KIKA Primary Care Unavailable DR VINCENZO FISCHER Admitting Unavailable LAWRENCE, DR VINCENZO Rahman Attending Unavailable DR VINCENZO FISCHER Consulting Unavailable AICHHOLZ, SHIRT CLEANER KIKA Admitting Unavailable AICHHOLZ, SHIRT CLEANER KIKA Attending Unavailable AICHHOLZ, SHIRT CLEANER KIKA Primary Care Unavailable AICHHOLZ, SHIRT CLEANER KIKA Consulting Unavailable RONALD JOHN Consulting Unavailable AICHHOLZ, SHIRT CLEANER KIKA Admitting Unavailable AICHHOLZ, SHIRT CLEANER KIKA Attending Unavailable AICHHOLZ, SHIRT CLEANER KIKA Primary Care Unavailable AICHHOLZ, SHIRT CLEANER KIKA Consulting Unavailable AICHHOLZ, SHIRT CLEANER KIKA Admitting Unavailable AICHHOLZ, SHIRT CLEANER KIKA Attending Unavailable AICHHOLZ, SHIRT CLEANER KIKA Primary Care Unavailable AICHHOLZ, SHIRT CLEANER KIKA Consulting Unavailable AICHHOLZ, SHIRT CLEANER KIKA Admitting Unavailable AICHHOLZ, SHIRT CLEANER KIKA Attending Unavailable AICHHOLZ, SHIRT CLEANER KIKA Primary Care Unavailable AICHHOLZ, SHIRT CLEANER KIKA Consulting Unavailable AICHHOLZ, SHIRT CLEANER KIKA Primary Care Unavailable LAWRENCE, DR VINCENZO Rahman Admitting Unavailable LAWRENCE, DR VINCENZO Rahman Attending Unavailable DR VINCENZO FISCHER Consulting Unavailable CABRERA, DR DEEJAY Rahman Consulting Unavailable MITCHELL .RAJINDER Consulting Unavailable AICHHOLZ, KIKA Attending Unavailable AICHHOLZ, KIKA Attending Unavailable Aichholz RUNNER MAN, Kika Unavailable Benji Hinojosa MD Primary Care [...] 0 Active take 2 tablets by mo pah every six hours as needed for pain acetaminophen (TYLENOL) 325 MG tablet Ta ke 650 mg by mouth every 6 hours as needed for Pain 0 Active amoxicillin 500 mg oral capsule (1 source) Penicillin-class Antibacterial Start: 04-07-2023 take 500 mg by mouth twice daily Amoxicillin Active 500 MG PO Twice daily April 07, 2023 12:00am benzocaine 200 mg/ml / menthol 5 mg/ml [...] oral solution (1 source) alpha-Adrenergic Agonist, Uncompetitive P-gejmiq-I-aspartate Receptor Antagonist, Sigma-1 Agonist Start: 05-26-2021 take 10 mL by mouth every six hours Pseudoeph-Bromph en-DM 30-2-10 MG/5ML 10 mL Orally every 6 hours for 5 days May, Active docusate sodium 100 mg oral capsule (1 source) Start: 12-22-2018 take 100 mg by mouth twice daily as needed for constipation 100 mg, Oral, 2 TIMES DAILY PRN, Constipation, Starting Tue12/22/18 at 0325 Do not crush or break. Norethindrone-E.Estr adiol-Iron (1 source) Estrogen Start: 04-07-2023 take 1 tablet by mouth once daily Norethindrone-E. Estradiol-Iron (Lorelei Fe 1.5/30 (28)) 1.5 mg-30 mcg (21)/75 mg (7) tablet Active 1 TAB PO Daily April 07, 2023 12:00am ethinyl estradiol 0.03 mg / norethindrone acetate [...] take 1 tablet by mouth once daily norgestimate-eth inyl estradiol (ORTHO-CYCLEN, 28,) 0.25-35 MG-MCG per tablet [...] Skin, nipple discomfort, Starting Tue12/22/18 at 0325, 3 ml liraglutide 6 mg/ml pen injector (1 source) GLP-1 Receptor Agonist Start: 04-07-2023 Liraglutide (Weight Loss) (Saxenda) 3 mg/0.5 mL (18 mg/3 mL) pen injector Active MG SUBCUT April 07, 2023 12:00am Multiple Vitamin (Daily-Vitamin) tablet (1 source) take 1 tablet by mouth in the morning Multiple Vitamin (Daily-Vitamin) tablet Take 1 tablet by mouth in the morning. 0 Active Multiple Vitamins-Minerals (Multi For Her) capsule (1 source) take 1 tablet by mouth in the morning Multiple Vitamins-Mineral s (Multi For Her) capsule Take 1 tablet by mouth in the morning. 0 Active ondansetron 4 mg disintegrating oral tablet (1 source) Serotonin-3 Receptor Antagonist Start: 04-07-2023 take 4 mg by mouth every six hours Ondansetron Active 4 MG PO Every 6 hours April 07, 2023 12:00am oxytocin (PITOCIN) 30 units in 500 mL [...] if mom negative and baby positive, Starting 12/22/18 at 0325, For 1 dose, Start: 10-17-2018 [...] hypertension during in third trimester] 12-04-2018 Chronic Immunizations and screening for infectious disease (15 sources) Serology positive; Translations: [Contact with and (suspected) exposure to other viral communicable diseases] Onset: 12-10-2020 Resolved: 01-14-2021 12-22-2018 Episodic Joint disorders and dislocations; trauma-related (1 source) [...] 02-17-2023 Chronic Other aftercare (1 source) Other longterm (current) drug therapy; Translations: [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] Onset: 04-06-2022 Episodic Other [...] dates] Onset: 01-09-2016 Resolved: 03-20-2016 02-09-2016 Episodic Other upper respiratory infections (4 sources) Acute sinusitis, unspecified; Translations: [Acute upper respiratory infection, unspecified] Onset: 12-10-2020 Resolved: 05-26-2021 Episodic Residual codes; unclassified (1 source) Gestation [...] unspecified] Onset: 03-29-2013 02-09-2016 Chronic Viral infection (1 source) Herpes simplex; Translations: [Herpesviral infection, unspecified] 04-07-2023 Episodic Viral infection (2 sources) COVID-19; Translations: [Disease [...] contractions] Onset: 01-07-2016 Resolved: 03-20-2016 03-20-2016 Episodic Nausea and vomiting (13 sources) Nausea [...] MASS AND LUMP HEAD] Onset: 12-22-2021 Episodic Polyhydramnios and other problems of amniotic [...] Test Name Value Interpretation Reference Range Facility No Panel InformationOrdered By: Barbara Zhu on 04-07-2023 Quick Strep (POC) [facility] IGP,APTIMA HPV,AGE GDLNon AGE GDLN ACOG TESTING Note . [facility] Comment on above: TESTS RESULT FLAG UN ITS REF RANGE LAB Clinician Provided Cytology Information Source.............Cervix;Endocervix No. of containers..01 ThinPrep Vial Age Algo ACOG Orin... FLAG LEGEND: L-Low Normal,H-High Normal,LL-Alert Low,HH-Alert High <-Panic Low,>-Panic High,A-Abnormal,AA-Critical Abnormal Performed at: 01 =[address] [id number] Verenice Minaya MD, HPV APTIMA Negative Negative [facility] Comment on above: This nucleic acid am plification test detects fourteen high- risk HPV types (16,18,31,33,35,39,45,51,52,56,58,59,66,68) without differentiation. Performed at: =[address] [id number] Grapple Yarder Operator: Verenice Minaya MD, Phone: [phone] Performed at: [address] [id number] Grapple Yarder Operator: Verenice Minaya MD, Phone: [phone] IGP, APTIMA HPV, RFX 16/18,45 Note . [facility] Comment on above: TESTS RESULT FLAG UN ITS REF RANGE LAB DIAGNOSIS: 02 NEGATIVE FOR INTRAEPITHELIAL LESION OR MALIGNANCY. CELLULAR CHANGES ASSOCIATED WITH INFLAMMATION ARE PRESENT. Specimen adequacy: 02 Satisfactory for evaluation. No endocervical component is identified. Performed by: 02 Lori Howard Right Of Way Clearer (ASCP) . 02 Note: Note 02 The [...] High <-Panic Low,>-Panic High,A-Abnormal,AA-Critical Abnormal Performed at: [address] [id number] Verenice Minaya MD, BROOM-ALONE CERVIX ENDOCERVIX [facility] MRI KNEE LT WO CONon 023 MRI [...] RONALD JOHN Date: 2022-06-01 13:03 Normal [facility] CULTURE URINEon 04-07-2022 CULTURE URINE Isolate 1 [...] Trimethoprim/Sulfam ethoxazole <=20 S F Normal [facility] Comment on above: Performed By: #### C VDTB #### [facility] [address] [place] [address] Dr. Latanya Donis ER URINE PROFILEon 3 Bilirubin Ql (U) Negative Normal NEGATIVE [facility] Comment on above: Performed By: #### Arti BOYLE UMICRO #### [facility] [address] [place] [address] Dr. Latanya Donis Clarity (U) CLEAR Normal CLEAR [facility] Comment on above: Performed By: #### Arti BOYLE UMICRO #### [facility] [address] [place] [address] Dr. Latanya Donis Color (U) BROWN Abnormal YELLOW [facility] Comment on above: Performed By: #### Arti BOYLE UMICRO #### [facility] [address] [place] [address] Dr. Latanya Donis ERUAHD A micrscopic examination will be performed if indicated. Normal [facility] Comment on above: Performed By: #### E RUR UMICRO #### [facility] [address] [place] [address] Dr. Latanya Donis Glucose Ql (U) Negative Normal NEGATIVE [facility] Comment on above: Performed By: #### E TAMAR UMICRO #### [facility] [address] [place] [address] Dr. Latanya Donis Hemoglobin Ql (U) LARGE Abnormal NEGATIVE [facility] Comment on above: Performed By: #### STEFANIA LUNARO #### [facility] [address] [place] [address] Dr. Latanya Donis Ketones Ql (U) Negative Normal NEGATIVE [facility] Comment on above: Performed By: #### STEFANIA LUNARO #### [facility] [address] [place] [address] Dr. Latanya Donis LEUKOCYTES MODERATE Abnormal NEGATIVE [facility] Comment on above: Performed By: #### STEFANIA LUNARO #### [facility] [address] [place] [address] Dr. Latanya Donis Nitrite Ql (U) Positive Abnormal NEGATIVE [facility] Comment on above: Performed By: #### LEE LUNA #### [facility] [address] [place] [address] Dr. Latanya Donis pH (U) 5.5 [pH] Normal 5-9 [facility] Comment on above: Performed By: #### LEE LUNA #### [facility] [address] [place] [address] Dr. Latanya Donis Protein (U) [Mass/Vol] 100 mg/dL Abnormal NEGATIVE/ TRACE [facility] Comment on above: Performed By: #### STEFANIA LUNARO #### [facility] [address] [place] [address] Dr. Latanya Donis SPEC GRAVITY 1.025 Normal 1.005-<=1.025 [facility] Comment on above: Performed By: #### LEE LUNA #### [facility] [address] [place] [address] Dr. Latanya Donis UR MICRO IND INDICATED Normal [facility] Comment on above: Performed By: #### LEE LUNA #### [facility] [address] [place] [address] Dr. Latanya Donis Urobilinogen Qn (U) 1.0 {Hanny'U}/dL Normal 0.2 - 1. 0 [facility] Comment on above: Performed By: #### Arti BOYLE UMICRO #### [facility] [address] [place] [address] Dr. Latanya Donis URINE MICROSCOPIC ONLYon BACTERIA MODERATE Abnormal NONE SEEN [facility] Comment on above: Performed By: #### Arti BOYLE UMICRO #### [facility] [address] [place] [address] Dr. Latanya Donis Bacteria identified Cx Nom (U) INDICATED Normal [facility] Comment on above: Performed By: #### Arti BOYLE UMICRO #### [facility] [address] [place] [address] Dr. Latanya Donis CAST NONE SEEN Normal NONE SEEN [facility] Comment on above: Performed By: #### Arti BOYLE UMICRO #### [facility] [address] [place] [address] Dr. Latanya Donis Crystals LM Nom (Urine sed) NONE SEEN Normal NONE SEEN [facility] Comment on above: Performed By: #### Arti BOYLE UMICRO #### [facility] [address] [place] [address] Dr. Latanya Donis Epithelial cells LM Ql (Urine sed) NONE SEEN Normal NONE SEEN /RARE [facility] Comment on above: Performed By: #### Arti BOYLE UMICRO #### [facility] [address] [place] [address] Dr. Latanya Donis MUCOUS NONE SEEN Normal NONE SEEN [facility] Comment on above: Performed By: #### Arti BOYLE UMICRO #### [facility] [address] [place] [address] Dr. Latanya Donis RBC (U) [#/Vol] /uL Abnormal 0-2 [facility] Comment on above: Performed By: #### Arti BOYLE UMICRO #### [facility] [address] [place] [address] Dr. Latanya Donis WBC 5-10 Abnormal NONE SEEN [facility] Comment on above: Performed By: #### E TAMARARVINDJOSE #### [facility] [address] [place], [place] [address] FACIAL BONES W CONon CT FACIAL BONES W CON EXAMINATION: CT [...] DEEJAY REES Date: 2021-12-22 22:26 Normal [facility] CBC AUTO DIFFon 12-22-2021 BASO # 0.0 103/ul Normal 0.0-0.1 [facility] Comment on above: Performed By: #### C BC #### [facility] [address] [place], [place] [address] Dr. Latanya Donis Basophils/100 WBC (Bld) 0.3 % Normal 0.2-2.0 [facility] Comment on above: Performed By: #### C BC #### [facility] [address] [place], [place] [address] Dr. Latanya Donis EO # 0.1 103/ul Normal 0.0-0.7 [facility] Comment on above: Performed By: #### C BC #### [facility] [address] [place] [address] Dr. Latanya Donis Eosinophils/100 WBC (Bld) 0.6 % Critically low 0.9-7.0 [facility] Comment on above: Performed By: #### C BC #### [facility] [address] [place] [address] Dr. Latanya Donis Erythrocyte distribution width (RBC) [Ratio] 12.2 % Normal 11.0-15.0 [facility] Comment on above: Performed By: #### C BC #### [facility] [address] [place] [address] Dr. Latanya Donis Hematocrit (Bld) [Volume fraction] 37.1 % Normal 36.0-48.0 [facility] Comment on above: Performed By: #### C BC #### [facility] [address] [place] [address] Dr. Latanya Donis Hemoglobin (Bld) [Mass/Vol] 12.5 g/dL Normal 12.0-16.0 [facility] Comment on above: Performed By: #### C BC #### [facility] [address] [place] [address] Dr. Latanya Donis IG # 0.03 10e3/ul Normal 0.00-0.03 [facility] Comment on above: Performed By: #### C BC #### [facility] [address] [place] [address] Dr. Latanya Donis IG % 0.3 % Normal 0.0-0.5 [facility] Comment on above: Performed By: #### C BC #### [facility] [address] [place] [address] Dr. Latanya Donis LYMPH # 1.6 103/ul Normal 1.2-3.8 [facility] Comment on above: Performed By: #### C BC #### [facility] [address] [place] [address] Dr. Latanya Donis Lymphocytes/100 WBC (Bld) 17.1 % Critically low 20.5-60.0 [facility] Comment on above: Performed By: #### C BC #### [facility] [address] [place] [address] Dr. Latanya Donis MANUAL DIFF REQ NO Normal [facility] Comment on above: Performed By: #### C BC #### [facility] [address] [place] [address] Dr. Latanya Donis MCH (RBC) [Entitic mass] 29.3 pg Normal 26.7-34.0 [facility] Comment on above: Performed By: #### C BC #### [facility] [address] [place] [address] Dr. Latanya Donis MCHC (RBC) [Mass/Vol] 33.7 g/dL Normal 29.9-35.2 [facility] Comment on above: Performed By: #### C BC #### [facility] [address] [place] [address] Dr. Latanya Donis MCV (RBC) [Entitic vol] 86.9 fL Normal 81.0-99.0 [facility] Comment on above: Performed By: #### C BC #### [facility] [address] [place] [address] Dr. Latanya Donis MONO # 0.8 103/ul Normal 0.3-0.8 [facility] Comment on above: Performed By: #### C BC #### [facility] [address] [place] [address] Dr. Latanya Donis Monocytes/100 WBC (Bld) 8.2 % Normal 1.7-12.0 [facility] Comment on above: Performed By: #### C BC #### [facility] [address] [place] [address] Dr. Latanya Donis NEUT # 7.0 103/ul Critically high 1.4-6.5 [facility] Comment on above: Performed By: #### C BC #### [facility] [address] [place] [address] Dr. Latanya Donis Neutrophils/100 WBC (Bld) 73.5 % Normal 43.0-75.0 [facility] Comment on above: Performed By: #### C BC #### [facility] [address] [place] [address] Dr. Latanya Donis Platelet mean volume (Bld) [Entitic vol] 11.4 fL Normal 9.5-13.5 [facility] Comment on above: Performed By: #### C BC #### [facility] [address] [place] [address] Dr. Latanya Donis PLT 266 103/ul Normal 150-450 [facility] Comment on above: Performed By: #### C BC #### [facility] [address] [place] [address] Dr. Latanya Donis RBC 4.27 106/ul Normal 4.20-5.40 [facility] Comment on above: Performed By: #### C BC #### [facility] [address] [place] [address] Dr. Latanya Donis WBC 9.5 103/ul Normal 4.0-11.0 [facility] Comment on above: Performed By: #### C BC #### [facility] [address] [place] [address] Dr. Latanya Donis CULTURE BLOODon 12-22-2021 Microscopic examination of blood, culture Culture Observations: NO GROWTH AT 5 DAYS. Normal [facility] Comment on above: Performed By: #### C VDTBH #### [facility] [address] [place] [address] Dr. Latanya Donis Microscopic examination of blood, culture Culture Observations: NO GROWTH AT 5 DAYS. Normal [facility] Comment on above: Performed By: #### C VDTBH #### [facility] [address] [place] [address] Dr. Latanya Donis PROF CHEM 8 (BAS METB)on Anion gap [Moles/Vol] 12.1 mmol/L Normal [facility] Comment on above: Performed By: #### B MP #### [facility] [address] [place] [address] Dr. Latanya Donis Calcium [Mass/Vol] 8.9 mg/dL Normal 8.5-10.1 [facility] Comment on above: Performed By: #### B MP #### [facility] [address] [place] [address] [address] Latanya Donis Chloride [Moles/Vol] 107 mmol/L Normal 98-107 [facility] Comment on above: Performed By: #### B MP #### [facility] [address] [address] [address] Latanya Donis CO2 [Moles/Vol] 25.3 mmol/L Normal 21.0-32.0 [facility] Comment on above: Performed By: #### B MP #### [facility] [address] [address] [address] Latanya Donis Creatinine [Mass/Vol] 0.99 mg/dL Normal 0.55-1.02 [facility] Comment on above: Performed By: #### B MP #### [facility] [address] [address] [address] Latanya Donis EGFR-AF FRENCH >60 Normal >=60 [facility] Comment on above: Performed By: #### B MP #### [facility] [address] [address] [address] Latanya Donis EGFR-NON AF FRENCH >60 Normal >=60 [facility] Comment on above: Performed By: #### B MP #### [facility] [address] [address] [address] Latanya Donis Glucose [Mass/Vol] 94 mg/dL Normal 74-106 [facility] Comment on above: Performed By: #### B MP #### [facility] [address] [address] [address] Latanya Donis Potassium [Moles/Vol] 3.4 mmol/L Critically low 3.5-5.1 [facility] Comment on above: Performed By: #### B MP #### [facility] [address] [address] [address] Latanya Donis Sodium [Moles/Vol] 141 mmol/L Normal 136-145 [facility] Comment on above: Performed By: #### B MP #### [facility] [address] [address] [address] Latanya Donis Urea nitrogen [Mass/Vol] 11.0 mg/dL Normal 7.0-18.0 [facility] Comment on above: Performed By: #### B MP #### [facility] [address] [place] [address] Dr. Latanya Donis Urea nitrogen/Creatinine [Mass ratio] 11.1 mg/mg Normal [facility] Comment on above: Performed By: #### B MP #### [facility] [address] [place] [address] Dr. Latanya Donis CHLAMYDIA/GONOCOCCUS GERALDINE (SW AB/URINE/PAPon 10-13-2021 Chlamydia trachomatis, GERALDINE Negative Normal Negative [facility] Comment on above: Performed By: #### C VDTBH #### [facility] [address] [place] [address] Dr. Latanya Donis Neisseria gonorrhoeae, GERALDINE Negative Normal Negative [facility] Comment on above: Performed By: #### C VDTBH #### [facility] [address] [place] [address] Dr. Latanya Donis HEPATITIS PANEL, ACUTEon HBsAg Screen Negative Normal Negative [facility] Comment on above: Performed By: #### H EPACUT #### [facility] [address] [place] [address] Dr. Latanya Donis HCV AB <0.1 Normal 0.0-0.9 [facility] Comment on above: Performed By: #### H EPACUT #### [facility] [address] [place] [address] Dr. Latanya Donis Hep A Ab, IgM Negative Normal Negative [facility] Comment on above: Performed By: #### H EPACUT #### [facility] [address] [place] [address] Dr. Latanya Donis Hep B Core Ab, IgM Negative Normal Negative [facility] Comment on above: Performed By: #### H EPACUT #### [facility] [address] [place] [address] Dr. Latanya Donis Interpretation: Comment Normal [facility] Comment on above: Result Comment: Nega tive Not infected with HCV, unless recent infection is suspected or other evidence exists to indicate HCV infection. Performed By: #### H EPACUT #### [facility] [address] [address] [address] Latanya Donis HIV 1 AND 2 WITH REFLEXon HIV Screen 4th Generation wRfx Non-Reactive Normal Non Reactive [facility] Comment on above: Result Comment: HIV Negative HIV-1/HIV-2 antibodies and HIV-1 p24 antigen were NOT detected. There is no laboratory evidence of HIV infection. Performed By: #### H IV12 #### [facility] [address] [address] [address] Latanya Donis RPR QUANTon 10-10-2021 Rapid Plasma Reagin, Quant Non-Reactive Normal NonRea<1:1 [facility] Comment on above: Result Comment: Plea se Note: This test does not meet current guidelines for screening and diagnosis of syphilis. This test is intended for following treatment response in patients being treated for syphilis infection. To screen for syphilis infection, a reflex cascade that includes both RPR and a treponema-specific assay should be utilized, such as Treponema pallidum (Syphilis) Screening [place] (095807) or Rapid Plasma Reagin (RPR) Test With Reflex to Quantitative RPR and Confirmatory Treponema pallidum Antibodies (970212). Performed By: #### C VDTBH #### [facility] [address] [place] [address] Dr. Latanya Donis VAGINITIS/VAGINOSIS DNA PROB Kirill 10-10-2021 Delmy species Negative Normal Negative [facility] Comment on above: Performed By: #### V AGINT #### [facility] [address] [address] [address] Latanya Donis Gardnerella vaginalis Negative Normal Negative [facility] [facility] Comment on above: Performed By: #### V AGINT #### [facility] [address] [place] [address] Dr. Latanya Donis Trichomonas vaginalis Negative Normal Negative [facility] Comment on above: Performed By: #### V AGINT #### [facility] [address] [place] [address] Dr. Latanya Donis [facility]on SARS-CoV-2 (COVID-19) RNA GERALDINE+probe Ql (Unsp spec) Detected Critically abnormal NOT DETECTED [facility] Comment on above: Result Comment: This test is not yet approved or cleared by the [place] FDA. When there are no FDA-approved or cleared tests available, and other criteria are met, FDA can make tests available under an emergency access mechanism called an Emergency Use Authorization (EUA). The EUA for this test is supported by the [place] of Health and Human Service's declaration that [...] used). Performed By: #### C VDTBH #### [facility] [address] [place] [address] Dr. Latanya Donis INSULINon 09-18-2021 Insulin 6.9 uIU/mL Normal 2.6-24.9 [facility] Comment on above: Performed By: #### I NSULIN #### [facility] [address] [place] [address] Dr. Latanya Donis FREE T4on 09-16-2021 Free T4 [Mass/Vol] 0.79 ng/dL Normal 0.76-1.46 [facility] Comment on above: Performed By: #### C VDTBH #### [facility] [address] [place] [address] Dr. Latanya Donis GLYCOHEMOGLOBIN A1Con 2021 ADA RECOMMENDATION SEE BELOW Normal [facility] Comment on above: Result Comment: ADA RECOMMENDED LIMIT 4.0 - 6.0 ADA THERAPEUTIC TARGET < 7.0 ACTION SUGGESTED > 7.0 Performed By: #### A 1C #### [facility] [address] [place] [address] Dr. Latanya Donis Glucose [Mass/Vol] 91 mg/dL Normal [facility] Comment on above: Performed By: #### A 1C #### [facility] [address] [address] [address] Latanya Donis HbA1c (Bld) [Mass fraction] 4.8 % Normal 4.5-6.2 [facility] Comment on above: Performed By: #### A 1C #### [facility] [address] [place] [address] Dr. Latanya Donis PROF CHEM 8 (BAS METB)on Anion gap [Moles/Vol] 10.0 mmol/L Normal [facility] Comment on above: Performed By: #### C VDTBH #### [facility] [address] [place] [address] Dr. Latanya Donis Calcium [Mass/Vol] 9.8 mg/dL Normal 8.5-10.1 [facility] Comment on above: Performed By: #### C VDTBH #### [facility] [address] [place] [address] Dr. Latanya Donis Chloride [Moles/Vol] 103 mmol/L Normal 98-107 [facility] Comment on above: Performed By: #### C VDTBH #### [facility] [address] [place] [address] Dr. Latanya Donis CO2 [Moles/Vol] 30.4 mmol/L Normal 21.0-32.0 [facility] Comment on above: Performed By: #### C VDTBH #### [facility] [address] [place] [address] Dr. Latanya Donis Creatinine [Mass/Vol] 0.92 mg/dL Normal 0.55-1.02 [facility] Comment on above: Performed By: #### C VDTBH #### [facility] [address] [place] [address] Dr. Latanya Donis EGFR-AF FRENCH >60 Normal >=60 [facility] Comment on above: Performed By: #### C VDTBH #### [facility] [address] [place] [address] Dr. Latanya Donis EGFR-NON AF FRENCH >60 Normal >=60 [facility] Comment on above: Performed By: #### C VDTBH #### [facility] [address] [place] [address] Dr. Latanya Donis Glucose [Mass/Vol] 93 mg/dL Normal 74-106 [facility] Comment on above: Performed By: #### C VDTBH #### [facility] [address] [place] [address] Dr. Latanya Donis Potassium [Moles/Vol] 4.4 mmol/L Normal 3.5-5.1 [facility] Comment on above: Performed By: #### C VDTBH #### [facility] [address] [place] [address] Dr. Latanya Donis Sodium [Moles/Vol] 139 mmol/L Normal 136-145 [facility] Comment on above: Performed By: #### C VDTBH #### [facility] [address] [place] [address] Dr. Latanya Donis Urea nitrogen [Mass/Vol] 11.0 mg/dL Normal 7.0-18.0 [facility] Comment on above: Performed By: #### C VDTBH #### [facility] [address] [place] [address] Dr. Latanya Donis Urea nitrogen/Creatinine [Mass ratio] 12.0 mg/mg Normal [facility] Comment on above: Performed By: #### C VDTBH #### [facility] [address] [place] [address] Dr. Latanya Donis TSHon 09-16-2021 TSH 1.496 uIU/mL Normal 0.358-3.740 [facility] Comment on above: Performed By: #### C VDTBH #### [facility] [address] [place] [address] Dr. Latanya Donis COVID Quick Testingon 2020 Result Negative [employer] Other COVID Quick Testingon 2020 Result Negative [employer] Other Chlamydia/GC DNA, Uron 01-03 Chlamydia Probe, Ur Negative Normal NEG [facility] Comment on above: Result Comment: CHLA MYDIA [...] target. Performed By: #### U CGP #### [facility] [employer] [address] [place] [address] [employer] Yard[employer] Operator: Ezio Calvillo MD Gonorrhea Probe, Ur Negative Normal NEG [facility] Comment on above: Result Comment: NEIS SERIA [...] target. Performed By: #### U CGP #### [facility] [employer] [address] [place] [id number] [employer] Operator: Ezio Calvillo MD Cult,Urineon 01-04-2020 Cult,Urine Specimen Description .CLEAN CATCH URINE Special Requests NOT REPORTED Culture NO SIGNIFICANT GROWTH Report Status FINAL 01/04/2020 Normal [facility] Comment on above: Performed By: #### P PPVP #### [facility] [address] [place] [address] [employer] Operator: Ezio Calvillo MD Hemoglobin A1Con 01-04-2020 HbA1c (Bld) [Mass fraction] 4.8 % Normal 4.0-6.0 [facility] Comment on above: Performed By: #### A HCV, GLYHGB, HIVCMB #### [facility] [employer] [address] [place] [address] [employer] Operator: Ezio Calvillo MD HbA1c (Bld) [Mass fraction] 91 mg/dL Normal [facility] Comment on above: Result Comment: The ADA and AACC recommend providing the estimated average glucose result to permit better patient understanding of their HBA1c result. Performed By: #### A HCV, GLYHGB, HIVCMB #### [address] [place], [place] [phone] [employer] Operator: Ezio Calvillo MD HIV Ag/Abon 01-03-2020 HIV Ag/Ab NONREACTIVE Normal [facility] Comment on above: Result Comment: No l aboratory evidence of HIV infection. If acute HIV infection is suspected, consider testing for HIV-1 RNA. Performed By: #### A HCV, GLYHGB, HIVCMB #### [address] [address] [employer] Operator: Ezio Calvillo MD Hep C Abo 01-03-2020 Hep C Ab NONREACTIVE Normal [facility] Comment on above: Result Comment: The [...] By: #### A HCV, GLYHGB, HIVCMB #### [address] [address] [employer] Operator: Ezio Calvillo MD Profileon 0 T.pallidum Ab Screen NONREACTIVE Normal [facility] Comment on above: Result Comment: T. pallidum antibodies are not detected. There is no serological evidence of infection with T. pallidum (early primary syphilis cannot be excluded). Retest in 2-4 weeks if syphilis is clinically suspect. Performed By: #### P RENAT #### [address] [address] [employer] Operator: Ezio Calvillo MD [facility] [address] [place] [address] [place] [address] Gra[employer] Yarder Operator: Chase Glez MD Hep B Surf Ag NONREACTIVE Normal [facility] Comment on above: Performed By: #### P RENAT #### [facility] [address] [place] [address] [employer]er Operator: Ezio Calvillo MD [facility] [address] [place] [address] [place] [address] [employer]er Operator: Chase Glez MD Rubella Ab, IgG 68.2 IU/mL Normal [facility] Comment on above: Result Comment: REFERENCE RANGE: <5.0 NON-REACTIVE (non-immune) 5.0 TO 9.9 EQUIVOCAL >=10.0 REACTIVE (immune) Performed By: #### P RENAT #### [facility] [address] [place] [address] [employer] Operator: Ezio Calvillo MD [facility] [address] [place], [place] [address] [place] [address] [employer] Operator: Chase Glez MD HIV Screenon 01-02-2020 HIV Ag/Ab NONREACTIVE NONREACTIVE [place], [place] Comment on above: No laboratory eviden ce of HIV infection. If acute HIV infection is suspected, consider testing for HIV-1 RNA. Hepatitis C Antibodyon 01-01 Hepatitis C Ab NONREACTIVE NONREACTIVE [place], [place] Comment on above: The hepatitis C [...] Ion 020 Basophils (Bld) [#/Vol] 0.03 10*3/uL [place] Basophils/100 WBC (Bld) 0 % 0 - 2 % [place] Differential Type NOT REPORTED [place] Eosinophils (Bld) [#/Vol] 0.12 10*3/uL [place] Eosinophils/100 WBC (Bld) 2 % 1 - 4 % [place] Erythrocyte distribution width (RBC) [Ratio] 12.4 % 11.8 - 14.4 % [place] Hematocrit (Bld) [Volume fraction] 41.5 % 36.3 - 47.1 % [place] Hemoglobin (Bld) [Mass/Vol] 13.5 g/dL 11.9 - 15.1 g/dL [place] Hepatitis B Surface Ag NONREACTIVE NONREACTIVE [place] Immature granulocytes (Bld) [#/Vol] 0 % 0 [place] Immature granulocytes (Bld) [#/Vol] 10*3/uL [place] Lymphocytes (Bld) [#/Vol] 2.14 10*3/uL [place] Lymphocytes/100 WBC (Bld) 28 % 24 - 43 % [place] MCH (RBC) [Entitic mass] 28.9 pg 25.2 - 33.5 pg [place] MCHC (RBC) [Mass/Vol] 32.5 g/dL 28.4 - 34.8 g/dL [place] MCV (RBC) [Entitic vol] 88.9 fL 82.6 - 102.9 fL [place] Monocytes (Bld) [#/Vol] 0.63 10*3/uL [place] Monocytes/100 WBC (Bld) 8 % 3 - 12 % [place] Platelet mean volume (Bld) [Entitic vol] 12.3 fL 8.1 - 13.5 fL [place] Platelets (Bld) [#/Vol] NOT REPORTED [place] Platelets (Bld) [#/Vol] 213 10*3/uL [place] RBC (Bld) [#/Vol] 4.67 10*6/uL 3.95 - 5.1 1 m/uL [place] RBC morphology finding Nom (Bld) NOT REPORTED [place] Rubella virus IgG Ql (S) 68.2 IU/mL [place] Comment on above: REFERENCE RANGE: <5.0 NON-REACTIVE (non-immune) 5.0 TO 9.9 EQUIVOCAL >=10.0 REACTIVE (immune) Segmented neutrophils/100 WBC (Bld) 62 % 36 - 65 % [place] Segs Absolute 4.69 [place], [place] T. pallidum, IgG NONREACTIVE NONREACTIVE [place] Comment on above: T. pallidum antibodies are not detected. There is no serological evidence of infection with T. pallidum (early primary syphilis cannot be excluded). Retest in 2-4 weeks if syphilis is clinically suspect. WBC (Bld) [#/Vol] 7.6 10*3/uL [place] WBC (Bld) [#/Vol] 0.0 10*3/uL 0.0 per 10 0 WBC [place] WBC Morphology NOT REPORTED [place] TYPE AND SCREENon 1 03-03-2019 ABO/Rh Negative [place], [place] Profileon 0 Abs. Basophil 0.03 k/uL Normal 0.00-0.20 [facility] Comment on above: Performed By: #### P RENAT #### [address] [address] [employer] Operator: Ezio Calvillo MD [facility] [address] [place] [address] [place] [address] [employer] Yarder Operator: Chase Glez MD Abs.Imm.Granulocyte <0.03 Normal 0.00-0.30 [facility] Comment on above: Performed By: #### P RENAT #### [address] [place] [address] [employer]er Operator: Ezio Calvillo MD [facility] [address] [place] [address] [address] [place] [phone] [employer]er Operator: Chase Glez MD Abs.Neutrophil (Seg) 4.69 k/uL Normal 1.50-8.10 [facility] Comment on above: Performed By: #### P RENAT #### [address] [address] [employer] Operator: Ezio Calvillo MD [facility] [address] [place] [address] Dr. [address] [phone] [employer] Operator: Chase Glez MD Basophils/100 WBC (Bld) 0 % Normal 0-2 [facility] Comment on above: Performed By: #### P RENAT #### [address] [address] [employer] Operator: Ezio Calvillo MD [facility] [address] [place] [address] Dr. [address] [place] [phone] [employer] Operator: Chase Glez MD Eosinophils (Bld) [#/Vol] 0.12 10*3/uL Normal 0.00-0.44 [facility] Comment on above: Performed By: #### P RENAT #### [address] [address] [employer] Yarder Operator: Ezio Calvillo MD [address] [place] [phone] [employer]er Operator: Chase Glez MD Eosinophils/100 WBC (Bld) 2 % Normal 1-4 [facility] Comment on above: Performed By: #### P RENAT #### [address] [address] [employer] Operator: Ezio Calvillo MD [address] [place] [address] [employer]er Operator: Chase Glez MD Erythrocyte distribution width (RBC) [Ratio] 12.4 % Normal 11.8-14.4 [facility] Comment on above: Performed By: #### P RENAT #### [address] [address] [employer] Operator: Ezio Calvillo MD [address] [place] [phone] [employer]er Operator: Chase Glez MD Hematocrit (Bld) [Volume fraction] 41.5 % Normal 36.3-47.1 [facility] Comment on above: Performed By: #### P RENAT #### [address] [address] Gra[employer] Yarder Operator: Ezio Calvillo MD [facility] [address] [place] [address] Dr. [address] [place] [phone] [employer] Operator: Chase Glez MD Hemoglobin (Bld) [Mass/Vol] 13.5 g/dL Normal 11.9-15.1 [facility] Comment on above: Performed By: #### P RENAT #### [address] [address] Gra[employer] Yarder Operator: Ezio Calvillo MD [facility] [address] [place] [address] Dr. [address] [place] [phone] [employer]er Operator: Chase Glez MD Immature granulocytes (Bld) [#/Vol] 0 % Normal 0 [facility] Comment on above: Performed By: #### P RENAT #### [address] [address] Gra[employer] Yarder Operator: Ezio Calvillo MD [facility] [address] [place] [address] Dr. [address] [phone] Gra[employer]er Operator: Chase Glez MD Lymphocytes (Bld) [#/Vol] 2.14 10*3/uL Normal 1.10-3.70 [facility] Comment on above: Performed By: #### P RENAT #### [address] [address] [employer] Operator: Ezio Calvillo MD [facility] [address] [place] [address] Dr. [address] [place] [phone] Gra[employer]er Operator: Chase Glez MD Lymphocytes/100 WBC (Bld) 28 % Normal 24-43 [facility] Comment on above: Performed By: #### P RENAT #### [address] [address] Gra[employer]er Operator: Ezio Calvillo MD [facility] [address] [place] [address] [address]. [place] [phone] Gra[employer]er Operator: Chase Glez MD MCH (RBC) [Entitic mass] 28.9 pg Normal 25.2-33.5 [facility] Comment on above: Performed By: #### P RENAT #### [address] [phone] [employer] Operator: Ezio Calvillo MD [address] [place] [phone] Gra[employer] Yarder Operator: Chase Glez MD MCHC (RBC) [Mass/Vol] 32.5 g/dL Normal 28.4-34.[address] [facility] Comment on above: Performed By: #### P RENAT #### [address] [address] Grapple Yarder Operator: Ezio Calvillo MD [address] [place] [phone] Grapple Yarder Operator: Chase Glez MD MCV (RBC) [Entitic vol] 88.9 fL Normal 82.6-102.9 [facility] Comment on above: Performed By: #### P RENAT #### [address] [address] Grapple Yarder Operator: Ezio Calvillo MD [address] [place] [phone] Gra[employer] Yarder Operator: Chase Glez MD Monocytes (Bld) [#/Vol] 0.63 10*3/uL Normal 0.10-1.20 [facility] Comment on above: Performed By: #### P RENAT #### [address] [address] Grapple Yarder Operator: Ezio Calvillo MD [address] [place] [phone] Gra[employer]er Operator: Chase Glez MD Monocytes/100 WBC (Bld) 8 % Normal 3-12 [facility] Comment on above: Performed By: #### P RENAT #### [address] [address] Grapple Yarder Operator: Ezio Calvillo MD [address] [place], [place] [phone] Grapple Yarder Operator: Chase Glez MD Neutrophil (Seg) 62 % Normal 36-65 [facility] Comment on above: Performed By: #### P RENAT #### [address] [address] Grapple Yarder Operator: Ezio Calvillo MD [address] [place] [id number] Grapple Yarder Operator: Chase Glez MD NRBC Automated 0.0 per 100 WBC Normal 0.0 [facility] Comment on above: Performed By: #### P RENAT #### [address] [address] Grapple Yarder Operator: Ezio Calvillo MD [address] [place] [phone] [employer]er Operator: Chase Glez MD Platelet mean volume (Bld) [Entitic vol] 12.3 fL Normal 8.1-13.5 [facility] Comment on above: Performed By: #### P RENAT #### [address] [address] Grapple Yarder Operator: Ezio Calvillo MD [address] [place] [address] Grapple Yarder Operator: Chase Glez MD Platelets (Bld) [#/Vol] 213 10*3/uL Normal 138-453 [facility] Comment on above: Performed By: #### P RENAT #### [address] [address] Grapple Yarder Operator: Ezio Calvillo MD [address] [place] [phone] [employer]er Operator: Chase Glez MD RBC (Bld) [#/Vol] 4.67 10*6/uL Normal 3.95-5.11 [facility] Comment on above: Performed By: #### P RENAT #### [facility] [address] [place] [address] Grapple Yarder Operator: Ezio Calvillo MD [facility] [address] [place] [address] Dr. [place], [place] [phone] Gra[employer]er Operator: Chase Glez MD WBC (Bld) [#/Vol] 7.6 10*3/uL Normal 3.5-11.3 [facility] Comment on above: Performed By: #### P RENAT #### [address] [address] Grapple Yarder Operator: Ezio Calvillo MD [address] [place] [phone] Grapple Yarder Operator: Chase Glez MD Auto Diff Performed NOT REPORTED Normal [facility] Comment on above: Performed By: #### P RENAT #### [address] [address] Grapple Yarder Operator: Ezio Calvillo MD [address] [place] [address] Grapple Yarder Operator: Chase Glez MD Platelets (Bld) [#/Vol] NOT REPORTED Normal [facility] Comment on above: Performed By: #### P RENAT #### [address] [address] Grapple Yarder Operator: Ezio Calvillo MD [address] [place] [phone] Gra[employer]er Operator: Chase Glez MD RBC morphology finding Nom (Bld) NOT REPORTED Normal [facility] Comment on above: Performed By: #### P RENAT #### [address] [address] Grapple Yarder Operator: Ezio Calvillo MD [address] [place] [phone] Grapple Yarder Operator: Chase Glez MD WBC Morphology NOT REPORTED Normal [facility] Comment on above: Performed By: #### P RENAT #### [facility] [address] [place], [place] [phone] Grapple Yarder Operator: Ezio Calvillo MD [facility] [address] [place], [place] [phone] Grapple Yarder Operator: Chase Glez MD Type + Scrnon 01-01 Type + Scrn Negative [facility] Comment on above: Performed By: #### P RTYS #### [facility] [address] [place], [place] [phone] Grapple Yarder Operator: Chase Glez MD Toxicology Scree, Urineon Amphetamine(s),Ur Negative Normal NEG [facility] Comment on above: Performed By: #### C PDAU #### [facility] [address] [place], [place] [phone] Grapple Yarder Operator: Chase Glez MD Barbiturate(s),Ur Negative Normal NEG [facility] Comment on above: Performed By: #### C PDAU #### [facility] [address] [place], [place] [phone] Grapple Yarder Operator: Chase Glez MD Benzodiazepine(s) Negative Normal [facility] Comment on above: Performed By: #### C PDAU #### [facility] [address] [place], [place] [phone] Grapple Yarder Operator: Chase Glez MD Buprenorphrine, Ur Negative Normal NEG [facility] Comment on above: Performed By: #### C PDAU #### [facility] [address] [place], [place] [phone] Grapple Yarder Operator: Chase Glez MD Cannabinoid(s),Ur Negative Normal NEG [facility] Comment on above: Performed By: #### C PDAU #### [facility] [address] [place], [place] [phone] Grapple Yarder Operator: Chase Glez MD Cocaine Metabolite Negative Normal [facility] Comment on above: Performed By: #### C PDAU #### [facility] [address] [place], [place] [phone] Grapple Yarder Operator: Chase Glez MD Methadone Ql (U) Negative Normal NEG [facility] Comment on above: Performed By: #### C PDAU #### [facility] [address] [place], [place] [phone] Grapple Yarder Operator: Chase Glez MD Methamphetamine, Ur Negative Normal NEG [facility] Comment on above: Performed By: #### C PDAU #### [facility] [address] [place], [place] [phone] Grapple Yarder Operator: Chase Glez MD Opiate(s), Ur Negative Normal NEG [facility] Comment on above: Performed By: #### C PDAU #### [facility] [address] [place], [place] [phone] Grapple Yarder Operator: Chase Glez MD Oxycodone, Urine Negative Normal [facility] Comment on above: Performed By: #### C PDAU #### [facility] [address] [place], [place] [phone] Grapple Yarder Operator: Chase Glez MD Phencyclidine, Ur Negative Normal NEG [facility] Comment on above: Performed By: #### C PDAU #### [facility] [address] [place] [address] Grapple Yarder Operator: Chase Glez MD Propoxyphene,Urine Negative Normal NEG [facility] Comment on above: Performed By: #### C PDAU #### [facility] [address] [place] [address] Grapple Yarder Operator: Chase Glez MD Tricyclic antidepressants Screen Ql (U) Negative Normal NEG [facility] Comment on above: Result Comment: Drug screen results are to be used for medical purposes only. All positive results are unconfirmed. Testing for employment or legal uses should be sent to a reference laboratory for confirmation. Performed By: #### C PDAU #### [facility] [address] [place] [address] Grapple Yarder Operator: Chase Glez MD Interpretive Info NOT REPORTED Normal [facility] Comment on above: Performed By: #### C PDAU #### [facility] [address] [place] [address] Grapple Yarder Operator: Chase Glez MD MDMA, Urine NOT REPORTED Normal NEG [facility] Comment on above: Performed By: #### C PDAU #### [facility] [address] [place] [address] Grapple Yarder Operator: Chase Glez MD Urine Drug Screen, [facility] 01-02-2020 Amphetamine Screen, Ur Negative NEGATIVE [facility] [place] [place] Barbiturate Screen, Ur Negative NEGATIVE [facility] [place] Benzodiazepine Screen, Urine Negative NEGATIVE [facility] [place] Buprenorphine Urine Negative NEGATIVE [facility] [place] Cannabinoid Scrn, Ur Negative NEGATIVE [facility] [place] [place] Cocaine Metabolite, Urine Negative NEGATIVE [facility] [place] MDMA, Urine NOT REPORTED [facility] [place] [place] Methadone Screen, [...] Probe, TP Negative Normal NEG [facility] Comment on above: Result Comment: CHLA MYDIA [...] target. Performed By: #### P PPVP #### [employer] [address] [place] [id number] Grapple Yarder Operator: Ezio Calvillo MD Gonorrhea Probe, TP Negative Normal NEG [facility] Comment on above: Result Comment: NEIS SERIA [...] target. Performed By: #### P PPVP #### [facility] [address] [address] Grapple Yarder Operator: Ezio Calvillo MD Cytologyon 10-11-2019 Cytology (NOTE) INTERPRETATION Cervical material, (ThinPrep vial, Imaging-assisted review): Specimen Adequacy: Satisfactory for evaluation. -Endocervical/trans formation zone component is absent. Descriptive Diagnosis: Negative for intraepithelial lesion or malignancy. Shift in rebecca suggestive of bacterial vaginosis. 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 [facility] ANATOMIC PATHOLOGY [address] [place], [place] [id number] Normal [facility] Comment on above: Performed By: #### P PPVP #### [facility] [employer] [address] [place], [place] [id number] Grapple Yarder Operator: Ezio Calvillo MD HCG, Quanton 02-06-2019 HCG, Quant <1 Normal <5 [facility] Comment on above: Result Comment: Non-preg premeno <=5 Postmeno <=8 Male <=3 If HCG results do not concur with clinical observations, additional testing to confirm results is recommended. Elevated results not associated with may be found in patients with other diseases such as tumors of the germ cells (testis, ovaries, etc.), bladder, pancreas, stomach, lungs, and liver. Performed By: #### B HCG #### [facility] [address] [place] [address] Grapple Yarder Operator: Chase Glez MD hCG, Quantitative, Ordered By: Amaya Russo on 02-06-2019 hCG Quant <1 <5 IU/L [facility] Work Phone: Comment on above: Non-preg premeno <=5 Postmeno <=8 Male <=3 If HCG results do not concur with clinical observations, additional testing to confirm results is recommended. Elevated results not associated with may be found in patients with other diseases such as tumors of the germ cells (testis, ovaries, etc.), bladder, pancreas, stomach, lungs, and liver. Glucose [place]. 2 hron 11-18-20 19 2 Hr 139 mg/dL Normal 65-139 [facility] Comment on above: Performed By: #### G LU2HR #### [facility] [address] [place] [address] Grapple Yarder Operator: Chase Glez MD 1 Hr 143 mg/dL Normal 65-184 [facility] Comment on above: Performed By: #### G LU2HR #### [facility] [address] [place] [address] Grapple Yarder Operator: Chase Glez MD Fasting 91 mg/dL Normal 65-99 [facility] Comment on above: Performed By: #### G LU2HR #### [facility] [address] [place] [address] Grapple Yarder Operator: Chase Glez MD Glucose [Mass/Vol] 75 g Normal [facility] Comment on above: Performed By: #### G LU2HR #### [facility] [address] [place] [address] Grapple Yarder Operator: Chase Glez MD Glucose Tolerance, 2 Hrson 1 03-10-2018 Glucose [Mass/Vol] 75 g [place] Glucose [Mass/Vol] 91 mg/dL 65 - 99 mg/dL [place], [place] Glucose, GTT - 1 Hour 143 mg/dL 65 - 184 mg/dL [place], [place] Glucose, GTT - 2 Hour 139 mg/dL 65 - 139 mg/dL [place], [place] Glucose, Whole Bloodon 01-08 Glucose [Mass/Vol] 88 mg/dL 74 - 100 mg/dL [place] Glucose, Whole Bloodon 12-22 Glucose [Mass/Vol] 104 mg/dL High 74 - 100 mg/dL [place] Interpretation and review of laboratory results Abnormal [place] APTTon 12-21-2018 aPTT Coag (Bld) [Time] 25.3 s [place] CBC auto differentialon 11-23 Basophils (Bld) [#/Vol] 10*3/uL [place] Basophils/100 WBC (Bld) 0 % 0 - 2 % [place] Differential Type NOT REPORTED [place] Eosinophils (Bld) [#/Vol] 0.10 10*3/uL [place] Eosinophils/100 WBC (Bld) 1 % 1 - 4 % [place] Erythrocyte distribution width (RBC) [Ratio] 14.2 % 11.8 - 14.4 % [place] Hematocrit (Bld) [Volume fraction] 29.5 % Low 36.3 - 47.1 % [place] Hemoglobin (Bld) [Mass/Vol] 9.8 g/dL Low 11.9 - 15.1 g/dL [place] Immature granulocytes (Bld) [#/Vol] 1 % High 0 [place] Immature granulocytes (Bld) [#/Vol] 0.10 10*3/uL [place] Interpretation and review of laboratory results Abnormal [place] Lymphocytes (Bld) [#/Vol] 1.31 10*3/uL [place] Lymphocytes/100 WBC (Bld) 18 % Low 24 - 43 % [place] MCH (RBC) [Entitic mass] 29.8 pg 25.2 - 33.5 pg [place] MCHC (RBC) [Mass/Vol] 33.2 g/dL 28.4 - 34.8 g/dL [place] MCV (RBC) [Entitic vol] 89.7 fL 82.6 - 102.9 fL [place] Monocytes (Bld) [#/Vol] 0.73 10*3/uL [place] Monocytes/100 WBC (Bld) 10 % 3 - 12 % [place] Platelet mean volume (Bld) [Entitic vol] 11.4 fL 8.1 - 13.5 fL [place] Platelets (Bld) [#/Vol] NOT REPORTED [place] Platelets (Bld) [#/Vol] 148 10*3/uL [place] RBC (Bld) [#/Vol] 3.29 10*6/uL Low 3.95 - 5.1 1 m/uL [place] RBC morphology finding Nom (Bld) NOT REPORTED [place] Segmented neutrophils/100 WBC (Bld) 70 % High 36 - 65 % [place] Segs Absolute 5.17 [place] WBC (Bld) [#/Vol] 7.4 10*3/uL [place] WBC (Bld) [#/Vol] 0.0 10*3/uL 0.0 per 10 0 WBC [place] WBC Morphology NOT REPORTED [place] Comprehensive metabolic pane susie 12-21-2018 Albumin [Mass/Vol] 3.1 g/dL Low 3.5 - 5.2 g/dL [place] Albumin/Globulin [Mass ratio] 1.0 {ratio} [place] ALP [Catalytic activity/Vol] 124 U/L High 35 - 104 U/L [place] ALT [Catalytic activity/Vol] 7 U/L 5 - 33 U/L [place] Anion gap [Moles/Vol] 13 mmol/L 9 - 17 mmol/L [place] AST [Catalytic activity/Vol] 14 U/L <32 [place] Bilirubin Ql (U) 0.36 mg/dL 0.3 - 1.2 mg/dL [place] Bun/Cre Ratio 10 [place], [place] Calcium [Mass/Vol] 9.3 mg/dL 8.6 - 10. 4 mg/dL [place] Chloride [Moles/Vol] 103 mmol/L 98 - 10 7 mmol/L [place] CO2 [Moles/Vol] 19 mmol/L Low 20 - 31 mmol/L [place] Creatinine [Mass/Vol] 0.84 mg/dL 0.5 - 0.9 mg/dL [place] GFR >60 >60 mL/min [place] GFR Non- >60 >60 mL/min [place] Glucose [Mass/Vol] 77 mg/dL 70 - 99 mg/dL [place], [place] Potassium [Moles/Vol] 3.8 mmol/L 3.7 - 5.3 mmol/L [place] Protein [Mass/Vol] 6.3 g/dL Low 6.4 - 8.3 g/dL [place] Sodium [Moles/Vol] 135 mmol/L 135 - 144 mmol/L [place] Urea nitrogen [Mass/Vol] 8 mg/dL 6 - 20 mg/dL [place] DRUG SCREEN MULTI URINEon 10 -31-2019 Amphetamine Screen, Ur Negative NEGATIVE [place] Barbiturate Screen, Ur Negative NEGATIVE [facility] [place] Benzodiazepine Screen, Urine Negative NEGATIVE [facility] Buprenorphine Urine Negative NEGATIVE [facility] Cannabinoid Scrn, Ur Negative NEGATIVE [facility] Cocaine Metabolite, Urine Negative NEGATIVE [facility] MDMA, Urine NOT REPORTED NEGATIVE [facility], [place] Methadone Screen, Urine Negative NEGATIVE [facility] Methamphetamine, Urine Negative NEGATIVE [facility] Opiates, Urine Negative NEGATIVE [facility], [place] Oxycodone Screen, Ur Negative NEGATIVE [facility] Phencyclidine, Urine Negative NEGATIVE [facility] Propoxyphene, Urine Negative NEGATIVE [facility] Test Information NOT REPORTED [place] Tricyclic Antidepressants, Urine Negative NEGATIVE [place] Comment on above: Drug screen results are to be used for medical purposes only. All positive results are unconfirmed. Testing for employment or legal uses should be sent to a reference laboratory for confirmation. Fibrinogenon 12-21-2018 Fibrinogen 481 mg/dL High 185 - 451 mg/dL [place] Interpretation and review of laboratory results Abnormal [place] Lactate Dehydrogenaseon 11-23 LD 201 U/L 135 - 214 U/L [place] Metabolic Panelon 12-21-2018 GFR/1.73 sq M predicted among non-blacks MDRD (S/P/Bld) [Vol rate/Area] [place], [place] Comment on above: Average GFR for 30-3 9 years old: 107 mL/min/1.73sq m Chronic Kidney Disease: <60 mL/min/1.73sq m Kidney failure: <15 mL/min/1.73sq m eGFR calculated using average adult body mass. Additional eGFR calculator available at: http://www.[employer]/multiple_crcl_2012.htm Stage 1: Some kidney damage normal GFR Stage 2: Mild kidney damage GFR 60-89 Stage 3: Moderate kidney damage GFR 30-59 Stage 4: Severe kidney damage GFR 15-29 Stage 5: Severe kidney damage GFR <15 ESRD - chronic treatment by dialysis or transplant Otheron 12-21-2018 Interpretation and review of laboratory results Abnormal [place] Protime-INRon 12-21-2018 INR Coag (PPP) [Relative time] 1.0 {INR} [place], [place] PT Coag (PPP) [Time] 9.8 s [place] Uric acidon 12-21-2018 Urate [Mass/Vol] 6.8 mg/dL High 2.4 - 5.7 mg/dL [place] APTTon 12-04-2018 aPTT Coag (Bld) [Time] 23.4 s [place] CBC Auto Differentialon 11-21 Basophils (Bld) [#/Vol] 0.03 10*3/uL [place] Basophils/100 WBC (Bld) 0 % 0 - 2 % [place] Differential Type NOT REPORTED [place] Eosinophils (Bld) [#/Vol] 0.12 10*3/uL [place] Eosinophils/100 WBC (Bld) 1 % 1 - 4 % [place] Erythrocyte distribution width (RBC) [Ratio] 14.3 % 11.8 - 14.4 % [place] Hematocrit (Bld) [Volume fraction] 30.2 % Low 36.3 - 47.1 % [place] Hemoglobin (Bld) [Mass/Vol] 10.3 g/dL Low 11.9 - 15.1 g/dL [place], [place] Immature granulocytes (Bld) [#/Vol] 2 % High 0 [place] Immature granulocytes (Bld) [#/Vol] 0.22 10*3/uL [place] Interpretation and review of laboratory results Abnormal [place] Lymphocytes (Bld) [#/Vol] 1.19 10*3/uL [place] Lymphocytes/100 WBC (Bld) 13 % Low 24 - 43 % [place] MCH (RBC) [Entitic mass] 30.4 pg 25.2 - 33.5 pg [place] MCHC (RBC) [Mass/Vol] 34.1 g/dL 28.4 - 34.8 g/dL [place] MCV (RBC) [Entitic vol] 89.1 fL 82.6 - 102.9 fL [place], [place] Monocytes (Bld) [#/Vol] 0.74 10*3/uL [place], [place] Monocytes/100 WBC (Bld) 8 % 3 - 12 % [place] Platelet mean volume (Bld) [Entitic vol] NOT REPORTED 8.1 - 13.5 fL [place] Platelets (Bld) [#/Vol] NOT REPORTED [place], [place] Platelets (Bld) [#/Vol] See Reflexed IPF Result [place] RBC (Bld) [#/Vol] 3.39 10*6/uL Low 3.95 - 5.1 1 m/uL [place], [place] RBC morphology finding Nom (Bld) NOT REPORTED [place] Segmented neutrophils/100 WBC (Bld) 75 % High 36 - 65 % [place] Segs Absolute 6.71 [place] WBC (Bld) [#/Vol] 0.0 10*3/uL 0.0 per 10 0 WBC [place] WBC (Bld) [#/Vol] 9.0 10*3/uL [place] WBC Morphology NOT REPORTED [place] Comprehensive Metabolic Pane susie 12-04-2018 Albumin [Mass/Vol] 3.2 g/dL Low 3.5 - 5.2 g/dL [place] Albumin/Globulin [Mass ratio] 1.0 {ratio} [place] ALP [Catalytic activity/Vol] 106 U/L High 35 - 104 U/L [place] ALT [Catalytic activity/Vol] 7 U/L 5 - 33 U/L [place] Anion gap [Moles/Vol] 13 mmol/L 9 - 17 mmol/L [place] AST [Catalytic activity/Vol] 11 U/L <32 [place], [place] Bilirubin Ql (U) 0.25 mg/dL Low 0.3 - 1.2 mg/dL [place], [place] Bun/Cre Ratio 7 Low [place], [place] Calcium [Mass/Vol] 9.8 mg/dL 8.6 - 10. 4 mg/dL [place], [place] Chloride [Moles/Vol] 103 mmol/L 98 - 10 7 mmol/L [place] CO2 [Moles/Vol] 19 mmol/L Low 20 - 31 mmol/L [place] Creatinine [Mass/Vol] 0.89 mg/dL 0.5 - 0.9 mg/dL [place] GFR >60 >60 mL/min [place] GFR Non- >60 >60 mL/min [place], [place] Glucose [Mass/Vol] 103 mg/dL High 70 - 99 mg/dL [place], [place] Interpretation and review of laboratory results Abnormal [place], [place] Potassium [Moles/Vol] 3.5 mmol/L Low 3.7 - 5.3 mmol/L [place] Protein [Mass/Vol] 6.5 g/dL 6.4 - 8.3 g/dL [place] Sodium [Moles/Vol] 135 mmol/L 135 - 144 mmol/L [place], [place] Urea nitrogen [Mass/Vol] 6 mg/dL 6 - 20 mg/dL [place] Fibrinogenon 12-04-2018 Fibrinogen 498 mg/dL High 185 - 451 mg/dL [place] Immature Platelet Fractionon 12-04-2018 Interpretation and review of laboratory results Abnormal [place] Platelet, Fluorescence 137 Low [place], [place] Platelet, Immature Fraction 10.3 % 1.1 - 10.3 % [place] Lactate Dehydrogenaseon 11-21 LD 199 U/L 135 - 214 U/L [place], [place] Metabolic Panelon 12-04-2018 GFR/1.73 sq M predicted among non-blacks MDRD (S/P/Bld) [Vol rate/Area] [place], [place] Comment on above: Stage 1: Some [...] body mass. Additional eGFR calculator available at: http://www.[employer]/multiple_crcl_2012.htm Microscopic Urinalysison Amorphous, UA NOT REPORTED None [place] Bacteria, UA TRACE Abnormal None [place] Casts UA NOT REPORTED /LPF [place] Crystals UA NOT REPORTED None /HPF [place] Epithelial Cells UA 5 TO 10 [place], [place] Interpretation and review of laboratory results Abnormal [place] Mucus, UA TRACE Abnormal None [place], [place] Other Observations UA NOT REPORTED NOT REQ. M [place], [place] RBC (U) [#/Vol] None [place], [place] Renal Epithelial, Urine NOT REPORTED 0 /HPF [place], [place] Trichomonas, UA NOT REPORTED None [place], [place] WBC, UA 5 TO 10 [place], [place] Yeast, UA NOT REPORTED None [place], [place] - [place] Otheron 12-04-2018 Interpretation and review of laboratory results Abnormal [place], [place] Protein / creatinine ratio, urineon 12-04-2018 Creatinine, Ur 93.6 mg/dL 28 - 217 mg/dL [place], [place] Protein (U) [Mass/Vol] 14 mg/dL [place], [place] Comment on above: No normal range esta blished. Urine Total Protein Creatinine Ratio 0.15 [place] Protime-INRon 12-04-2018 INR Coag (PPP) [Relative time] 0.9 {INR} [place], [place] PT Coag (PPP) [Time] 9.4 s Low [place] Uric Acidon 12-04-2018 Urate [Mass/Vol] 5.7 mg/dL 2.4 - 5.7 mg/dL [place] Urinalysison 12-04-2018 Bilirubin Urine Negative NEGATIVE [facility] Color, UA YELLOW YELLOW [place], [place] Glucose, Ur Negative NEGATIVE [place], [place] Interpretation and review of laboratory results Abnormal [place], [place] Ketones Ql (U) Negative NEGATIVE [place], [place] Leukocyte esterase Test strip Ql (U) MODERATE Abnormal NEGATIVE [place], [place] Nitrite, Urine Negative NEGATIVE [place] pH, UA 7.5 [place], [place] Protein (U) [Mass/Vol] Negative NEGATIVE [place], [place] Specific [place], UA 1.010 [place], [place] Turbidity UA SLIGHTLY CLOUDY Abnormal CLEAR [place], [place] Urinalysis Comments NOT REPORTED [place], [place] Urine Hgb Negative NEGATIVE [place], [place] Urobilinogen, Urine Normal Normal [place], [place] Glucose tolerance, 1 houron 10-16-2018 GLU ADMN Glucola [place], [place] Glucose tolerance screen 50g 194 mg/dL High 70 - 135 mg/dL [place], [place] Interpretation and review of laboratory results Abnormal [place], [place] Hemoglobinon 10-16-2018 Hemoglobin (Bld) [Mass/Vol] 10.8 g/dL Low 11.9 - 15.1 g/dL [place], [place] Interpretation and review of laboratory results Abnormal [place] Vital Signs Date Time Vital Sign Value Performing Clinician Facility 04-07-2023 16:19-0500 Body height 160.02 cm [facility] 04-07-2023 16:19-0500 Body mass index (BMI) [Ratio] 34.2 kg/m2 [facility] 04-07-2023 16:19-0500 Body temperature 98 [degF] [facility] 04-07-2023 16:19-0500 Body weight 87.54 kg [facility] 04-07-2023 16:19-0500 Diastolic blood pressure 87 mm[Hg] [facility] 04-07-2023 16:19-0500 Heart rate 124 /min [facility] 04-07-2023 16:19-0500 Respiratory rate 18 /min [facility] 04-07-2023 16:19-0500 SaO2% (BldA) [Mass fraction] 98 % [facility] 04-07-2023 16:19-0500 Systolic blood pressure 126 mm[Hg] [facility] 05-26-2021 16:00-0400 Body height 160.02 cm Barbara Zhu Other [facility] [employer] Other 05-26-2021 16:00-0400 Body mass index (BMI) [Ratio] 32.59 kg/m2 Barbara Zhu Other [employer] Other 05-26-2021 16:00-0400 Body temperature 97.8 [degF] Barbara Zhu Other [employer] Other 05-26-2021 16:00-0400 Body weight 83.46 kg Barbara Zhu Other [employer] Other 05-26-2021 16:00-0400 SaO2% (BldA) [Mass fraction] 97 % Barbara Zhu Other [employer] Other 12-10-2020 16:15-0400 Body height 160.02 cm Katiuska Ho Other [employer] Other 12-10-2020 16:15-0400 Body mass index (BMI) [Ratio] 31.88 kg/m2 Katiuska Ho Other [employer] Other 12-10-2020 16:15-0400 Body temperature 98.2 [degF] Katiuska Ho Other [employer] Other 12-10-2020 16:15-0400 Body weight 81.65 kg Katiuska Ho Other [employer] Other 12-10-2020 16:15-0400 Respiratory rate 18 /min Katiuska Ho Other [employer] Other 12-10-2020 16:15-0400 SaO2% (BldA) [Mass fraction] 97 % Katiuska Ho Other [employer] Other 12-23-2018 08:46-0400 Body Temperature 97.59 [degF] [facility] [place] 12-23-2018 08:46-0400 BP Diastolic 77 mm[Hg] [facility] [place] 12-23-2018 08:46-0400 BP Systolic 120 mm[Hg] [facility] , [place] 12-23-2018 08:46-0400 Pulse (Heart Rate) 81 /min [facility] [place] 12-23-2018 08:46-0400 Respiratory Rate 20 /min [facility] [place] 12-22-2018 02:11-0400 Pulse Oximetry 98 % Amaya [facility] [place] 12-21-2018 15:35-0400 BMI (Body Mass Index) 37.91 kg/m2 Amaya Ferrum [facility] [place] 12-21-2018 15:35-0400 Body weight 97.07 kg [facility] [place] 12-21-2018 15:35-0400 Height 160 cm [facility] , [place] 12-06-2018 00:01-0400 Body Temperature 97.9 [degF] [facility] [place] 12-06-2018 00:01-0400 BP Diastolic 74 mm[Hg] Freya Fischer [facility] , [place] 12-06-2018 00:01-0400 BP Systolic 121 mm[Hg] Freya Fischer [facility] , [place] 12-06-2018 00:01-0400 Pulse (Heart Rate) 105 /min Freya Draper [facility], [place] 12-06-2018 00:01-0400 Respiratory Rate 18 /min Freya Draper [facility], [place] 12-05-2018 23:44-0400 BMI (Body Mass Index) 37.2 kg/m2 Freya Fischer [facility] 12-05-2018 23:44-0400 Body weight 95.25 kg [facility] , [place] 12-05-2018 23:44-0400 Height 160 cm Freya Fischer [facility] , [place] 12-04-2018 11:48-0400 BP Diastolic 81 mm[Hg] Amaya [facility] , [place] 12-04-2018 11:48-0400 BP Systolic 120 mm[Hg] [facility] [place] 12-04-2018 11:48-0400 Pulse (Heart Rate) 95 /min Amaya [facility] 12-04-2018 11:15-0400 Body Temperature 97.81 [degF] [facility] [place] 12-04-2018 11:15-0400 Respiratory Rate 18 /min Amaya [facility], [place] 10-17-2018 16:30-0400 Body Temperature 97.9 [degF] [address], [place] 10-17-2018 16:30-0400 BP Diastolic 84 mm[Hg] [address] 10-17-2018 16:30-0400 BP Systolic 128 mm[Hg] [address] 10-17-2018 16:30-0400 Pulse (Heart Rate) 86 /min [address] 10-17-2018 16:30-0400 Respiratory Rate 20 /min [address] Encounters Encounter Date Encounter Type Care Provider Facility Start: 04-07-2023 End: 04-07-2023 ambulatory [facility] Work Phone: Start: 04-07-2023 End: 04-07-2023 Patient encounter procedure [facility] Work Phone: Start: 03-23-2023 Clinisync Result Encounter Kika Guaman RUNNER MAN Work Phone: [facility] External Department Unsolicited Start: 03-23-2023 Clinisync Result Encounter Kika Guaman RUNNER MAN Work Phone: [facility] Unsolicited Start: 03-23-2023 Patient encounter procedure Kika Guaman RUNNER MAN Work Phone: [facility] Start: 03-23-2023 End: 03-23-2023 ambulatory KIKA AICHHOLZ Not Available Start: 02-23-2023 End: 02-23-2023 ambulatory KIKA AICHHOLZ Not Available Start: 06-01-2022 End: 06-02-2022 ambulatory SHIRT CLEANER KIKA AICHHOLZ Facility:[facility]1 Start: 04-04-2022 End: 04-04-2022 ambulatory SHIRT CLEANER KIKA AICHHOLZ Facility:[facility] Start: 12-22-2021 End: 12-23-2021 ambulatory SHIRT CLEANER KIKA AICHHOLZ Facility:[facility] Start: 10-09-2021 End: 10-09-2021 ambulatory SHIRT CLEANER KIKA AICHHOLZ Facility:[facility]1 Start: 10-08-2021 End: 10-09-2021 ambulatory SHIRT CLEANER KIKA AICHHOLZ Facility:[facility] Start: 09-28-2021 End: 09-28-2021 ambulatory SHIRT CLEANER KIKA AICHHOLZ Facility:[facility]1 Start: 09-16-2021 End: 09-17-2021 ambulatory SHIRT CLEANER KIKA AICHHOLZ Facility:[facility]1 Start: 05-26-2021 End: 05-26-2021 ambulatory Barbara Zhu Other [employer] Other Start: 05-26-2021 Office outpatient vi sit 25 minutes Barbara Zhu [facility] Start: 01-14-2021 End: 01-14-2021 ambulatory Katiuska Ho Other [employer] Other Start: 11-24-2021 Office outpatient vi sit 5 minutes Katiuska Ho [facility] Start: 12-10-2020 Office outpatient vi sit 15 minutes Katiuska Ho [facility] Start: 01-02-2020 End: 01-03-2020 Patient encounter procedure AMAYA [facility] Start: 01-02-2020 End: 01-02-2020 Subsequent hospital visit by physician Kika Guaman [facility] Laboratory Comment on above: Amenorrhea; Positive urine test; Encounter for supervision of other normal in first trimester Start: 10-11-2019 End: 10-12-2019 Patient encounter procedure [facility] [facility] Start: 10-11-2019 End: 10-11-2019 Subsequent hospital visit by physician Kika PERALES Laboratory Comment on above: Screen for STD (sexu ally transmitted disease); Encounter for well woman exam with routine gynecological exam Start: 02-06-2019 End: 02-07-2019 Patient encounter procedure [facility] [facility] Start: 02-06-2019 End: 02-06-2019 Subsequent hospital visit by physician Kika Guaman Work Phone: [facility] Laboratory Comment on above: Irregular menses; Possible , not yet confirmed Start: 01-08-2019 End: 01-09-2019 Patient encounter procedure [place] [facility] Start: 01-08-2019 End: 01-08-2019 Subsequent hospital visit by physician Flaquita Alvarado Drawing Room [facility] Laboratory Comment on above: Gestational diabetes mellitus (GDM), Start: 12-21-2018 End: 12-23-2018 Evaluation and management of inpatient Amaya Russo Work Phone: [facility] Labor and Delivery Start: 12-13-2018 End: 12-13-2018 Subsequent hospital visit by physician Kika Guaman [facility] Laboratory Comment on above: 35 weeks gestation o f Start: 12-05-2018 End: 12-06-2018 Subsequent hospital visit by physician Freya Fischer Work Phone: [facility] Labor and Delivery Start: 12-04-2018 End: 12-04-2018 Subsequent hospital visit by physician Amaya Russo Work Phone: [facility] Labor and Delivery Start: 10-25-2018 End: 10-25-2018 Subsequent hospital visit by physician Flaquita Diabetes Education Room [facility] Diabetic Education Comment on above: Arrived Start: 10-17-2018 End: 10-17-2018 Subsequent hospital visit by physician Flaquita Op Treatment Rm 01 [facility] Specialty Clinic (MOB) Start: 10-16-2018 End: 10-16-2018 Subsequent hospital visit by physician [facility] Comment on above: 27 weeks gestation o f ; Rh negative state in antepartum period, third trimester RhD negative [facility] [place] Procedures Date Procedure Procedure Detail Performing Clinician Start: 04-07-2023 Quick Strep (POC) Start: 03-23-2023 IGP,APTIMA HPV,AGE GDLN Kika Guaman RUNNER MAN Work Phone: Start: 03-23-2023 Microscopic observat ion [Identifier] in Cervix by Cyto stain Kika Guaman [employer]NER [employer] Work Phone: Start: 01-02-2020 Obstetric panel KATHLEE [...] POOL Start: 01-02-2020 Antibody screen Kika Amanda minor Start: 01-02-2020 Blood typing serologic abo Amaya [...] Gonadotropin chorion ic quantitative Amaya E Pool [employer] - CNM Work Phone: Start: 01-08-2019 Glucose quantitative blood xcpt reagent strip AMAYA POOL Start: 01-08-[address] gtt 3 specimens AMAYA POOL Start: 01-08-2019 GLUCOSE, WHOLE BLOOD Ka brenen E Pool Work Phone: Start: 01-08-[address] gtt 3 specimens Amaya E Pool Work Phone: Start: 12-22-2018 GLUCOSE, WHOLE BLOOD Ka marychuy E Pool Work Phone: Start: 12-21-2018 Assay of blood/uric acid Amaya E Pool Work Phone: Start: 12-21-2018 Blood count complete auto&auto difrntl wbc Amaya E Pool Work Phone: Start: 12-21-2018 Comprehensive metabo lic panel Amaya E Pool Work Phone: Start: 12-21-2018 Fibrinogen activity Mar galvan E Pool Work Phone: Start: 12-21-2018 Lactate dehydrogenase ldh Amaya E Pool Work Phone: Start: 12-21-2018 Prothrombin time Daynae en E Pool Work Phone: Start: 12-21-2018 Thromboplastin time partial plasma/whole blood Amaya E Pool Work Phone: Start: 12-21-2018 Drug screen class list a Amaya E Pool Work Phone: Start: 12-06-2018 nonstress test Michel steve Fischer Work Phone: Start: 12-04-2018 Assay of blood/uric acid Amaya E Pool Work Phone: Start: 12-04-2018 Blood count complete auto&auto difrntl wbc Amaya Russo Work Phone: Start: 12-04-2018 Comprehensive metabo lic panel Amaya Russo Work Phone: Start: 12-04-2018 Fibrinogen activity Mar Russo Work Phone: Start: 12-04-2018 IMMATURE PLATELET FRACTION Amaya Russo Work Phone: Start: 12-04-2018 Lactate dehydrogenase ldh Amaya Russo Work Phone: Start: 12-04-2018 Prothrombin time Dunia Russo Work Phone: Start: 12-04-2018 Thromboplastin time partial plasma/whole blood Amaya Russo Work Phone: Start: 12-04-2018 Protein total xcpt refractometry urine Amaya Russo Work Phone: Start: 12-04-2018 Urinalysis microscopic only Amaya Russo Work Phone: Start: 12-04-2018 Urnls dip stick/tabl et rgnt auto w/o microscopy Amaya Russo Work Phone: Start: 12-04-2018 nonstress test Ka marychuy Russo Work Phone: Start: 10-16-2018 Blood count hemoglobin Amaya Russo Work Phone: Start: 10-16-2018 Blood typing serolog ic rh (d) Amaya Russo Work Phone: Start: 10-16-[address] gtt 3 specimens Amaya Russo Work Phone: Plan of Treatment Date Care Activity Detail Author Start: 12-23-2028 DTaP/Tdap/Td vaccine (3 - Td) DTaP/Tdap/Td vaccine (3 - Td) [place] Start: 12-23-2028 DTaP/Tdap/Td vaccine (9 - Td) DTaP/Tdap/Td vaccine (9 - Td) [place] Start: 03-23-2026 Screening for malign ant neoplasm of cervix [facility] Start: 02-10-2026 DTaP/Tdap/Td vaccine (2 - Td) DTaP/Tdap/Td vaccine (2 - Td) [place] Start: 10-10-2024 Screening for malign ant neoplasm of cervix Cervical cancer screen [place], [place] Start: 08-21-2023 Influenza vaccination Influenza Vacc ine (#1) [facility] Comment on above: Postponed from 10/22 (Patient Refused) Start: 04-20-2023 End: 04-20-2023 Patient encounter procedure 04/20/2023 8:40 AM EST Office Visit [facility] [address] [place] [id number] Kika Guaman, RUNNER MAN [address] [place] [id number] [facility] Start: 10-03-2022 Cervical cancer screen Cervical canc er screen [place], [place] Start: 10-03-2022 Screening for malign ant neoplasm of cervix [facility] Start: 10-16-2020 End: 10-16-2020 Office Visit 10/16/2020 Office Visit Obstetrics and Gynecology Amaya Russo [employer] - CNM [address] [place], [place] [id number] [facility] OBST[facility]ICS & [facility]YNECOLOGY Start: 01-21-2020 End: 01-21-2020 Routine 01/21/2020 Routine Obstetrics and Gynecology Amaya Russo [employer] - CNM [address] [facility] [place] [address] [facility] OBST[facility]OLOGY Start: 01-16-2020 End: 01-16-2020 Ancillary Procedure 01/16/2020 Ancillary Procedure Obstetrics and Gynecology [facility]OLOG[facility] Start: 12-22-2019 Creatinine measurement Creatinine mo [place]itoring [place], [place] Start: 12-22-2019 Creatinine monitoring Creatinine mon [place] Start: 12-22-2019 Potassium monitoring Potassium monit [place], [place] Start: 12-05-2019 Creatinine monitoring Creatinine [place] Start: 12-05-2019 Potassium monitoring Potassium monit [place] Start: 10-23-2019 Influenza vaccination Flu vaccine (# 1) [place] Start: 02-26-2019 Influenza vaccination Flu vaccine (# 1) [place] Comment on above: Postponed from 10/22 (Not Indicated) Start: 02-08-2019 End: 02-08-2019 ambulatory 02/08/2019 Visit Obstetrics and Gynecology Amaya Russo [employer]FFER - CNM [address] [address] [phone] [facility] MATERIALS SCIENTIST Start: 02-05-2019 End: 02-05-2019 Visit 02/05/2019 Visit Obstetrics and Gynecology Amaya Russo [employer] - CNM [address] [place] [address] [phone] [facility] MATERIALS SCIENTIST Start: 01-25-2019 Varicella Vaccine (1 of 2 - 2-dose childhood series) Varicella Vaccine (1 of 2 - 2-dose childhood series) [place] Comment on above: Postponed from 03/01 (Not Indicated) Start: 01-04-2019 End: 01-04-2019 Visit 01/04/2019 Visit Obstetrics and Gynecology Amaya Russo [employer] - CNM [address] [place] [address] [phone] [facility] MATERIALS SCIENTIST Start: 12-25-2018 Influenza vaccination Flu vaccine (# 1) [place] Comment on above: Postponed from 10/22 (Not Indicated) Start: 12-25-2018 Varicella Vaccine (1 of 2 - 13+ 2-dose series) Varicella Vaccine (1 of 2 - 13+ 2-dose series) [place] Comment on above: Postponed from 03/01 (Not Indicated) Start: 12-21-2018 End: 12-21-2018 Routine 12/21/2018 Routine Obstetrics and Gynecology Amaya Russo APRN - PATRICK [address] [place] [address] [phone] [facility] MATERIALS SCIENTIST Start: 12-14-2018 End: 12-14-2018 Routine 12/14/2018 Routine Obstetrics and Gynecology PoolAmaya APRN - PATRICK [address] [place] [address] [phone] [facility] MATERIALS SCIENTIST Start: 11-06-2018 End: 11-06-2018 Routine 11/06/2018 Routine Obstetrics and Gynecology Amaya Russo APRN - CNM [address] [place] [address] [phone] [facility] MATERIALS SCIENTIST Start: 10-22-2018 Influenza vaccination Flu vaccine (# 1) [place], [place] Start: 2000 Varicella Vaccine (1 of 2 - 13+ 2-dose series) Varicella Vaccine (1 of 2 - 13+ 2-dose series) [place] Start: 1988 Varicella vaccine (1 of 2 - 2-dose childhood series) Varicella vaccine (1 of 2 - 2-dose childhood series) [facility] Work Phone: End: 10-11-2019 C.trachomatis N.gonorrhoeae DNA, Thin Prep C.trachomatis N.gonorrhoeae DNA, Thin Prep Microbiology Routine Screen for STD (sexually transmitted disease) 1 Occurrences starting 10/11/2019 until 10/11/2019 [place] Comment on above: 1 Occurrences starti ng 10/11/2019 until 10/11/2019 C.trachomatis N.gonorrhoeae DNA, Thin Prep C.trachomatis N.gonorrhoeae DNA, Thin Prep Microbiology Routine Screen for STD (sexually transmitted disease) 10/11/2019 12:16 PM EDT [place] End: 01-02-2020 C.trachomatis N.gonorrhoeae DNA, Urine C.trachomatis N.gonorrhoeae DNA, Urine Microbiology Routine Amenorrhea Positive urine test Encounter for supervision of other normal in first trimester 1 Occurrences starting 01/02/2020 until 01/02/2020 [place] Comment on above: 1 Occurrences starti ng 01/02/2020 until 01/02/2020 C.trachomatis N.gonorrhoeae DNA, Urine C.trachomatis N.gonorrhoeae DNA, Urine Microbiology Routine Amenorrhea Positive urine test Encounter for supervision of other normal in first trimester 01/02/2020 4:[facility] [place] [place] End: 01-02-2020 Culture, Urine Culture, Urine Microbiology Routine Amenorrhea Positive urine test Encounter for supervision of other normal in first trimester 1 Occurrences starting 01/02/2020 until 01/02/2020 [place] Comment on above: 1 Occurrences starti ng 01/02/2020 until 01/02/2020 Culture, Urine Culture, Urine Microbiology Routine Amenorrhea Positive urine test Encounter for supervision of other normal in first trimester 01/02/2020 4:57 PM [facility] [place] End: 10-11-2019 Cytopathology procedure, preparation of smear, genital source PAP SMEAR Lab Routine Encounter for well woman exam with routine gynecological exam 1 Occurrences starting 10/11/2019 until 10/11/2019 [place] Comment on above: 1 Occurrences starti ng 10/11/2019 until 10/11/2019 nonstress test nonst ress test OB Routine Daily until discontinued starting 12/06/2018, 1 completed [facility] [place] Comment on above: Daily until disconti nued starting 12/06/2018, 1 completed End: 12-04-2018 nonstress test nonstress test OB Routine One Time for 1 Occurrences starting 12/04/2018 until 12/04/2018 [place] Comment on above: One Time for 1 Occur rences starting 12/04/2018 until 12/04/2018 End: 01-02-2020 HbA1c (Bld) [Mass fraction] Hemoglobin A1C Lab Routine Amenorrhea Positive urine test Encounter for supervision of other normal in first trimester 1 Occurrences starting 01/02/2020 until 01/02/2020 [place] Comment on above: 1 Occurrences starti ng 01/02/2020 until 01/02/2020 HbA1c (Bld) [Mass fraction] Hemoglobin A1C Lab Routine Amenorrhea Positive urine test Encounter for supervision of other normal in first trimester 01/02/2020 4:57 PM EST [place] Nonrebreather mask oxygen Nonrebreather mask oxygen Respiratory Care Routine As directed - RT (PRN) until discontinued starting 12/05/2018 [place] Comment on above: As directed - RT (VT N) until discontinued starting 12/05/2018 End: 12-22-2018 POCT Glucose POCT Glucose Point of Care Testing Routine One Time for 1 Occurrences starting 12/22/2018 until 12/22/2018 [place] Comment on above: One Time for 1 Occur rences starting 12/22/2018 until 12/22/2018 RHOGAM ANTEPARTUM RHOGAM ANTEPAR [facility] Blood Bank Routine 27 weeks gestation of Rh negative state in antepartum period, third trimester 10/16/2018 7:08 PM EDT [place] RHOGAM RHOGAM POSTPAR ANDRA Blood Bank [employer] Label Print 12/22/2018 2:55 PM EDT [place] End: 12-13-2018 Strep B Screen, Vaginal / Rectal Strep B Screen, Vaginal / Rectal Microbiology Routine 35 weeks gestation of 1 Occurrences starting 12/13/2018 until 12/13/2018 [place] Comment on above: 1 Occurrences starti ng 12/13/2018 until 12/13/2018 Strep B Screen, Vagi nal / Rectal Strep B Screen, Vaginal / Rectal Microbiology Routine 35 weeks gestation of 12/13/2018 4:12 PM EDT [place] End: 12-05-2018 SVE SVE Point of Care Testing Routine One Time for 1 Occurrences starting 12/05/2018 until 12/05/2018 [place] Comment on above: One Time for 1 Occur rences starting 12/05/2018 until 12/05/2018 [facility] Immunizations Immunization Date Immunization Notes Care Provider Sarah gloria 12-23-2018 tetanus toxoid, redu carolina diphtheria toxoid, and acellular pertussis vaccine, adsorbed [place], [place] 12-22-2018 diphtheria, tetanus toxoids and acellular pertussis vaccine, unspecified formulation [place], [place] 02-11-2016 tetanus toxoid, redu carolina diphtheria toxoid, and acellular pertussis vaccine, adsorbed [facility] [place] 05-08-2014 RHO(D) immune globul in - IM [facility], [place] 05-30-2010 tetanus toxoid, redu carolina diphtheria toxoid, and acellular pertussis vaccine, adsorbed Kika Aichholz RUNNER MAN Work Phone: [facility] 05-15-2002 tetanus toxoid, adsorbed Kika Aichholz RUNNER MAN Work Phone: [facility] 06-19-1999 measles, mumps and rubella virus vaccine Kika Aichholz RUNNER MAN Work Phone: [facility] 08-20-1992 diphtheria, tetanus toxoids and acellular pertussis vaccine, unspecified formulation Kika Aichholz RUNNER MAN Work Phone: [facility] 08-20-1992 poliovirus vaccine, unspecified formulation Kika Aichholz RUNNER MAN Work Phone: [facility] 09-17-1988 diphtheria, tetanus toxoids and acellular pertussis vaccine, unspecified formulation Kika Aichholz RUNNER MAN Work Phone: [facility] 09-17-1988 haemophilus influenz ae type b vaccine, conjugate unspecified formulation Kika Aichholz RUNNER MAN Work Phone: [facility] 09-17-1988 measles, mumps and rubella virus vaccine Kika Aichholz RUNNER MAN Work Phone: [facility] 1987 diphtheria, tetanus toxoids and pertussis vaccine Kika Aichholz RUNNER MAN Work Phone: [facility] 1987 trivalent poliovirus vaccine, live, oral Kika Aichholz RUNNER MAN Work Phone: [facility] 1987 diphtheria, tetanus toxoids and acellular pertussis vaccine, unspecified formulation Kika Aichholz RUNNER MAN Work Phone: [facility] 1987 poliovirus vaccine, unspecified formulation Kika Aichholz RUNNER MAN Work Phone: [facility] 1987 diphtheria, tetanus toxoids and acellular pertussis vaccine, unspecified formulation Kika Schusterholz RUNNER MAN Work Phone: [facility] 1987 poliovirus vaccine, unspecified formulation Kika Aicfannyholz RUNNER MAN Work Phone: [facility] 1987 diphtheria, tetanus toxoids and acellular pertussis vaccine, unspecified formulation Kika Aicfannyholz RUNNER MAN Work Phone: [facility] 1987 poliovirus vaccine, unspecified formulation Kika Aicfannyholz RUNNER MAN Work Phone: [facility] Healthcare Payers Date Payer Category Payer Managed Care HMO (unspecified) AEKAREEM MENESES [id number] 2020-Present [address] [place] [address] HMO [id number] 2017 Medicaid [employer] [employer] [id number] 2017-Present [address] [place] [address] [id number] 2015 Unknown [facility] xxxxxxxxxxxx 2015-Present [phone] [address] [place] [address] xxxxxxxxxxxx [id number] 1987 Unknown [id number] .173 1987 Unknown [id number] [id number] .173 1987 Unknown [id number] .173 1987 Unknown [id number] [id number] .173 1987 Unknown [id number] [id number] .173 1987 Unknown [id number] 2.16.840.1.366423.3.579.2 .593 1987 Unknown [id number] 2.16.840.1.853766.3.579.2 .593 1987 Unknown [id number] 2.16.840.1.120317.3.579.2 .593 1987 Unknown [id number] 2.16.840.1.296149.3.579.2 .593 1987 Unknown [id number] 2.16.840.1.724341.3.579.2 .593 1987 Unknown [id number] [id number] .593 1987 Unknown [id number] 2.16.840.1.510664.3.579.2 .593 1987 Unknown [id number] [id number] .1259 1987 Unknown [id number] [id number] .1259 1959 Private Health Insurance [id number] 1959 Unknown [id number] Social History Date Type Detail Facility Start: 08-28-2018 End: 04-07-2023 Tobacco smoking status [facility] Never smoker [facility] Start: 08-28-2018 End: 02-22-2023 Alcohol intake Not Currently [facility] Start: 03-28-2014 Alcohol Comment [facility] [place] Start: 04-20-2018 Bonny Bledsoe [facility] [place] Start: 1985 Sex Assigned At Not on file M horacio [facility] ANDREWS MORALES Start: 10-11-2019 End: 01-02-2020 Tobacco use and exposure Never used Bonny Ferrell- O ANDREWS Du Start: 01-04-2019 End: 10-11-2019 Alcohol intake Ex-drinker (finding) Jan Taylor Y Exposure to SARS-CoV -2 (event) Not sure [facility] Start: 03-23-2023 Alcohol intake Lifetime non-d smitha (finding) [facility] Start: 02-22-2023 End: 03-23-2023 History of Social function [facility] Within the last year , have you [...] [OSQ] Very much [facility] (I/We) worried wherenu er (my/our) food would run out before (I/we) got money to buy more. Often true [facility] In the past 12 month s, was there a time when you were not able to pay the mortgage or rent on time? Yes [facility] Start: 1985 Sex Assigned At Female F [facility] Medical Equipment Procedure Code Equipment Code Equipment Origin al Text Equipment Identifier Dates Pt to test four times daily fastin, 2 hr pp [id number] Start: 10-18-2018 End: 12-23-2018 1 each by Other route 4 times daily One glucometer, test strips, lancets - per insurance coverage [id number] Start: 10-18-2018 End: 10-18-2019 use to test BLOO D SUGAR FOUR TIMES DAILY [id number] Start: 10-23-2018 End: 12-23-2018 Evaluation note 05-26-2021 [...] provided x 1 day, no extension allowed [facility] Other Evaluation note 01-14-2021 Note Date & [...] Patient care instructions given in writting by [facility] document. [facility] Other Evaluation note 12-10-2020 Note Date & [...] Patient care instructions given in writting by [facility] document. [facility] Other Chief complaint+Reason for visit Narrative Note Date & Type Note Facility Chief complaint+Reason for v isit Narrative Reason for Visit Contact with and (suspected) exposure to covid-19 Sore throat [facility] Work Phone: Evaluation note Note Date & Type Note Facility Evaluation note Diagnosis Irregular menses Irregular menstrual cycle Possible , not yet confirmed examination or test, unconfirmed documented in this encounter [facility] Work Phone: Evaluation note Note Date & Type Note Facility Evaluation note Diagnosis Onset Date Contact with and (suspected) exposure to covid-19 acute Sore throat acute [facility] Work Phone: History general Narrative - Reported Note Date & Type Note Facility History general Narrative - Reported Type Surgical History laparoscopy Knees Right and Lef t Hospitalization History Childbirth Natural x4 [facility] Other History general Narrative - Reported Note Date & Type Note Facility History general Narrative - Reported Type Medical History herpes Surgical History laparoscopy Knees Right and Lef t Surgical History cholecystectomy Surgical History appendectomy Surgical History right thumb\ Hospitalization History Childbirth Natural x4 [facility] Other Assessments Diagnosis 27 weeks gestation of [...] Documents on File Type Date Recorded Patient 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 President Marketing & Development Expl anation Advance Directives and Living Will Power of Straight Cutter Machine Latest Code Status on File Code Status [...] Documents on File Type Date Recorded Patient 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 President Marketing & Development Expl anation ACP-Advance Directive ACP-Power of Straight Cutter Machine Latest Code Status on File Code Status Date Activated Date Inactivated Comments Full Code 12/22/2018 3:25 AM 12/23/2018 5:13 PM Full Code 12/21/2018 3:33 PM 12/22/2018 3:25 AM Full Code 12/05/2018 11:33 PM 12/06/2018 3:01 AM Latest Code Status on File Code Status Date Activated Date Inactivated Comments Full Code 12/22/2018 3:25 AM Advance Directive Response Recorded Date/ Time Advance Directives Yes March 4:11pm Discharge Instructions * Instructions* Alondra Flores, RN - 12/06/2018 OUTPATIENT DISCHARGE Jennifer Calvert [facility] Hasmukh or Jluis Dr. Galan Freya Husain [facility] Anahy Mahmood [facility] Dr. Mira Hagen Freya Conde [facility] ACTIVITY LIMITATIONS: ( z )Up and [...] with your OB doctor as specified. [facility] OB Department phone: Dr. Danis Russo [facility] Dr. Pete Fischer [facility] [address] [facility] [address] [place] or [place] DIET Eat a well balanced diet focusing on foods high in fiber and protein. Drink plenty of fluids especially water. To avoid constipation you may take a mild stool softener as recommended by your doctor or apprentice architect. ACTIVITY Gradually increase your activity. Resume exercise regimen only after advice by your doctor or apprentice architect. Avoid lifting anything heavier than a gallon of milk for SIX weeks. Avoid driving until your doctor or apprentice architect has given their approval. Rise slowly from [...] of harming yourself or your infant. If infant will not stop crying, contact another adult for help or place in their crib on their back and take a break. NEVER shake your . BLEEDING Vaginal bleeding will decrease in amount [...] medications as recommended by your doctor or apprentice architect for pain If you develop a warm, red, tender area on your breast or develop a fever contact your OB provider. For moms: If you become engorged, feeding may be more difficult or painful for 1-2 days. You may find it helpful to hand express some milk so that the infant can latch on more easily. While , continue to take your vitamins as directed by your doctor or apprentice architect. Refer to the booklet in the folder/binder for more information. If you feel you need more assistance or have questions, please call Gia Walton IBCLC, seo consultant, at or the OB department to [...] they become loose or soiled. If used, [place] should be removed by your care provider. [...] Outpatient Instructions for IM or Subcutaneous Injections [address] [place] [address] You are advised to carry out the [...] RN - 12/04/2018 OUTPATIENT DISCHARGE Jennifer Calvert [facility] or Jluis Freya Husain [facility] ACTIVITY LIMITATIONS: ( X )Up and [...] in this encounter Summary Purpose Family History Relationship Condition Age at Onset Recorded Date/T aryan father Multiple sclerosis Unknown History of Present Illness * Amaya Russo, LOUIE - CNM - 12/23/2018 10:18 AM EDT Department of [...] (HSV) antibody Plan: discharge home * Amaya Russo APRN - CNM - 12/22/2018 12:04 AM EDT Department of Obstetrics and Gynecology Progress Note SUBJECTIVE: Pt doing well. Pt is comfortable with epidural. OBJECTIVE: Vitals: 12/21/18 2343 12/21/18 2348 12/21/18 2353 12/21/18 2354 BP: 119/76 Pulse: 93 Resp: Temp: TempSrc: SpO2: 95% 95% 94% Weight: Height: heart rate: Baseline Heart Rate: 140 Accelerations: present Nursing Home Variability: moderate Decelerations: absent Contraction frequency: 2 [...] the referral. Education session duration: 70 minutes; ([id number]). Reminder to ordering Physician/Provider: Diabetes and CKD (non-dialysis) patients may have 2 hours of MNT education in subsequent years. Hours can be spread over any number of visits. documented in this encounter* Amaya Russo APRN - CNM - 12/04/2018 12:26 PM EDT Dx 34 weeks Hypertension NST reactive documented in this encounter Additional Source Comments Reason for Visit (unrecogniz ed section and content) Reason Comments Constipation Reason Comments Scheduled Induction Status Reason Specialty Diagnoses / Procedures Referre d By Contact Referred To Contact Diagnoses High blood pressure Amaya Russo APRN - CNM [address] [phone] [facility] Reason Comments Gestational Diabetes Status Reason Specialty Diagnoses / Procedures Referred By Contact Referred To Contact Open Specialty Services Required Diabetes Services Diagnoses Abnormal GTT (glucose tolerance test) Amaya Russo APRN - CNM [address] [phone] [facility] Diabetic Education [address] [place] [address] Reason Comments Hypertension INFORMATION SOURCE (unrecogn ized section and content) DATE CREATED AUTHOR 01/04/2020 [facility] DATE CREATED AUTHOR AUTHOR'S ORGANIZ ATION 07/03/2022 [facility] DATE CREATED AUTHOR AUTHOR'S ORGANIZ ATION 03/24/2023 [facility] EPIC Care Teams (unrecognized sec tion and content) Imaging Technologist Relationship Specialty Start Date End Date Benji Hinojosa MD [address] [place] [id number] PCP - General Cardiology 07/30/22 Kika Guaman NP [address] [place] [phone] Referring Physician Nurse Practitioner 07/30/22 Team Status: Active Member Role Status Dates Kika Guaman Primary Care Provider Active Team Status: Inactive Member Role Status Dates Kika Guaman Primary Care Provider Active Sta rt: April 07, 2023 End: April 07, 2023 Barbara Zhu APRN Attending Provider Active Start: April 07, 2023 End: April 07, 2023 Goals (unrecognized section and content) Goals may be documented in a n alternate section FOR RECORDS PERTAINING TO PATIENTS WHO ARE [...] BE BASED ON THE PRIMARY CLINICAL RECORDS. [facility]. provides no warranty or guarantee of the accuracy or completeness of information in this document.
== END 2023-04-13 09:01 | disposition home or self-care (01) ==
LOC: MAMMO 09:00
PROVIDERS: PCP Nurse Practitioner; Visit Provider Nurse Practitioner
DX: N63.11 Unspecified lump in the right breast, upper outer quadrant (principal); Z80.3 Family history of malignant neoplasm of breast; Z80.42 Family history of malignant neoplasm of prostate
CPT/HCPCS: 76642; 77066; G0279

== ENCOUNTER 2023-06-23 11:36 | Outpatient (OUT) | payer OTHER, SELFPAY ==
--- NOTE | 2023-06-23 11:50 | XR_ITS ---
The [address] [address] Patient Name: ROBLES YEN MRN: [id number] date: 1985 Sex: F Assigned Patient Location: LAB Current Patient Location: LAB Accession/Order Number: [id number] Exam Date: 06/23/2023 11:52 Report Date: 06/23/2023 13:05 At the request of: SAVANAH LUNA Procedure: XR ankle LT min 3V PROCEDURE: XR ankle LT min 3V COMPARISON: None. HISTORY: left ankle swelling m25.472 FINDINGS: BONES:Bone fragment identified along the inferior lateral malleolus measuring 7.7 mm, this is age-indeterminate. No dislocation. SOFT TISSUES:Negative. No visible soft tissue swelling. EFFUSION:None visible. OTHER: Negative. XR/XR ankle LT min 3V IMPRESSION: Bone fragment along the inferior lateral malleolus, age-indeterminate injury Electronically authenticated by: KEKE PARSON Date: 06/23/2023 13:05
--- NOTE | 2023-06-23 11:51 | XR_ITS ---
The [address] [address] Patient Name: ROBLES YEN MRN: [id number] date: 1985 Sex: F Assigned Patient Location: LAB Current Patient Location: LAB Accession/Order Number: [id number] Exam Date: 06/23/2023 11:52 Report Date: 06/23/2023 12:56 At the request of: SAVANAH LUNA Procedure: XR knee LT 3V PROCEDURE: XR knee LT 3V COMPARISON: None. HISTORY: contusion of left knee, initial encounter S80.02XA FINDINGS: BONES:No fracture, acute abnormality, or significant arthropathy. SOFT TISSUES:Negative. No visible soft tissue swelling. EFFUSION:None visible. OTHER: Negative. XR/XR knee LT 3V IMPRESSION: No acute radiographic abnormality Electronically authenticated by: KEKE PARSON Date: 06/23/2023 12:56
== END 2023-06-23 11:37 | disposition home or self-care (01) ==
PROVIDERS: PCP Nurse Practitioner; Visit Provider Nurse Practitioner
DX: M25.472 Effusion, left ankle (principal); S80.02XA Contusion of left knee, initial encounter
CPT/HCPCS: 73562; 73610

== ENCOUNTER 2023-07-05 11:11 | Outpatient (OUT) | payer OTHER, SELFPAY ==
--- NOTE | 2023-07-05 | XR_ITS ---
The [address] [address] Patient Name: ROBLES YEN MRN: [id number] date: 1985 Sex: F Assigned Patient Location: Current Patient Location: Accession/Order Number: [id number] Exam Date: 07/05/2023 11:12 Report Date: 07/05/2023 15:37 At the request of: CLAU LINDSEY Procedure: XR ankle LT min 3V PROCEDURE: XR ankle LT min 3V HISTORY: LEFT ANKLE PAIN ; lateral ankle pain, rolled ankle 2 weeks ago COMPARISON: XR ankle left 06/23/2023 FINDINGS: BONES:Stable small ossification distal to the lateral malleolus which appear to be corticated, favoring sequela of remote injury. Unremarkable ankle joint space. SOFT TISSUES:Mild soft tissue swelling. EFFUSION:None visible. OTHER: Negative. XR/XR ankle LT min 3V IMPRESSION: 1. No convincing acute bone abnormality. Electronically authenticated by: DEEJAY REES Date: 07/05/2023 15:37
== END 2023-07-05 11:12 | disposition home or self-care (01) ==
LOC: EC 11:11
PROVIDERS: PCP Nurse Practitioner; Visit Provider Podiatrist Foot & Ankle Surgery
DX: M25.572 Pain in left ankle and joints of left foot (principal)
CPT/HCPCS: 73610

== ENCOUNTER 2023-10-17 09:33 | Outpatient (OUT) | payer OTHER, SELFPAY ==
--- NOTE | 2023-10-17 09:43 | MR_ITS ---
[address] [address] Patient Name: ROBLES YEN MRN: [id number] date: 1985 Sex: F Assigned Patient Location: MRI Current Patient Location: MRI Accession/Order Number: [id number] Exam Date: 10/17/2023 09:55 Report Date: 10/17/2023 20:51 At the request of: DOMINICK LOVE Procedure: MR ankle LT wo con EXAM: MR ankle LT wo con HISTORY: Left Ankle Instability, Left Peroneal Tendonitis COMPARISON: 07/05/2023 TECHNIQUE: MRI images obtained with multiple sequences. MRI of the left ankle without contrast. Sequences obtained by standard department protocol. FINDINGS: Achilles tendon is intact. Plantar fascia is intact. No significant degeneration of the ankle joint and subtalar joint. Extensor, flexor and peroneal tendons are intact. Anterior and posterior syndesmotic ligaments are intact. Deltoid ligament fibers are intact. Anterior talofibular, posterior talofibular and calcaneofibular ligaments are intact. Type II accessory navicular bone. No acute fracture. No significant joint degeneration. Normal alignment of the ankle joint, hindfoot and midfoot. MR/MR ankle LT wo con IMPRESSION: 1. Extensor, flexor and peroneal tendons are intact. 2. No acute ligamentous abnormality. 3. Normal alignment of the hindfoot and midfoot. 4. No significant joint degeneration. Electronically authenticated by: TAIWO LIMON Date: 10/17/2023 20:51
== END 2023-10-17 09:34 | disposition home or self-care (01) ==
LOC: MRI 09:34
PROVIDERS: PCP Nurse Practitioner; Visit Provider Physician Assistant
DX: M25.372 Other instability, left ankle (principal); M76.72 Peroneal tendinitis, left leg
CPT/HCPCS: 73721

== ENCOUNTER 2024-04-16 09:19 | Outpatient (OUT) | payer OTHER, SELFPAY ==
--- NOTE | 2024-04-16 09:32 | MR_ITS ---
The [address] [address] Patient Name: ROBLES YEN MRN: [id number] date: 1985 Sex: F Assigned Patient Location: MRI Current Patient Location: MRI Accession/Order Number: [id number] Exam Date: 04/16/2024 15:32 Report Date: 04/16/2024 15:55 At the request of: SAVANAH LUNA NP Procedure: MR head/brain wo con EXAMINATION: MRI OF THE BRAIN WITHOUT CONTRAST CLINICAL HISTORY: Chronic migraine headaches G43.009 COMPARISON: CT 04/05/2023 TECHNIQUE: Multiecho, multiplanar imaging of the brain was performed without enhancement. The ventricles are normal in size and position. There are no areas of abnormal signal intensity within the supra- or infratentorial brain. No restricted diffusion is identified to suggest a recent ischemic event. There are no extra-axial collections or mass effect. Empty sella is again visualized. There may be a trace amount of fluid within the optic nerve sheaths. Bilateral maxillary and ethmoid mucosal thickening is seen. The mastoid air cells are clear. MR/MR head/brain wo con IMPRESSION: MINOR CHRONIC SINUSITIS. FINDINGS WHICH COULD RAISE QUESTION A IDIOPATHIC INTRACRANIAL HYPERTENSION (PSEUDOTUMOR CEREBRI). CLINICAL CORRELATION IS RECOMMENDED. NO OTHER ACUTE FINDINGS. Impression dictated by: Pascale Pena M.D.04/16/2024 3:55 PM Dictation Location: [place] [address] Electronically authenticated by: [id number] Y Date: 04/16/2024 15:55
== END 2024-04-16 09:20 | disposition home or self-care (01) ==
PROVIDERS: PCP Nurse Practitioner; Visit Provider Nurse Practitioner
DX: G43.909 Migraine, unspecified, not intractable, without status migrainosus (principal); J32.8 Other chronic sinusitis
CPT/HCPCS: 70551

== ENCOUNTER 2024-05-10 08:29 | Outpatient (OUT) | payer OTHER, SELFPAY ==
[2024-05-10 08:45] LABS: Basophils Percent Auto 0.4 % (0.2-2.0); Eosinophils Absolute Auto 0.2 10^3/uL (0.0-0.7); Eosinophils Percent Auto 2.7 % (0.9-7.0); Hematocrit 38.1 % (36.0-48.0); Immature Granulocytes Abs Auto 0.02 10^3/uL (0.00-0.03); Immature Granulocytes Pct Auto 0.3 % (0.0-0.5); Lymphocytes Absolute Auto 1.6 10^3/uL (1.2-3.8); Lymphocytes Percent Auto 22.4 % (20.5-60.0); Mean Corpuscular HGB Conc 34.1 g/dL (29.9-35.2); Mean Corpuscular Hemoglobin 29.3 pg (26.7-34.0); Mean Platelet Volume 11.3 fL (9.5-13.5); Monocytes Absolute Auto 0.5 10^3/uL (0.3-0.8); Monocytes Percent Auto 6.7 % (1.7-12.0); Neutrophils Absolute Auto 4.7 10^3/uL (1.4-6.5); Neutrophils Percent Auto 67.5 % (43.0-75.0); Platelet Count 282 10^3/uL (150-450); Red Blood Count 4.43 10^6/uL (4.20-5.40); Red Cell Distribution Width 11.9 % (11.0-15.0)
--- OUTSIDE RECORDS SUMMARY | 2024-05-10 08:54 | XMS_ITS | CCD ---
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 Primary Care Unavailable POOL, AMAYA E Referring Unavailable CONCEPCIÓNHHOLYoni KIKA J. Primary Care Unavailable POOL, AMAYA E Referring Unavailable DENIZ KIKA J. Primary Care Unavailable POOL, AMAYA E Referring Unavailable DENIZ KIKA J. Primary Care Unavailable POOL, AMAYA E Referring Unavailable DENIZ KIKA J. Primary Care Unavailable Fatimah Guamana Larry Primary Care Provider [phone] Katiuska Ho Unavailable Barbara Zhu Unavailable AICHHOLZ, RN CLINICAL QUALITY KIKA Primary Care Unavailable CAROLINA, DR JOSSY Tran Admitting Unavailbud FIGUEROA, DR JOSSY Tran Attending Unavailbud e ALLYSSA ., KAROL Consulting Unavailable AICHHOLZ, RN CLINICAL QUALITY KIKA Primary Care Unavailable DR VINCENZO FISCHER Admitting Unavailable LAWRENCE, DR VINCENZO Rahman Attending Unavailable DR VINCENZO FISCHER Consulting Unavailable AICHHOLZ, RN CLINICAL QUALITY KIKA Admitting Unavailable AICHHOLZ, RN CLINICAL QUALITY KIKA Attending Unavailable AICHHOLZ, RN CLINICAL QUALITY KIKA Primary Care Unavailable AICHHOLZ, RN CLINICAL QUALITY KIKA Consulting Unavailable RONALD JOHN Consulting Unavailable AICHHOLZ, RN CLINICAL QUALITY KIKA Admitting Unavailable AICHHOLZ, RN CLINICAL QUALITY KIKA Attending Unavailable AICHHOLZ, RN CLINICAL QUALITY KIKA Primary Care Unavailable AICHHOLZ, RN CLINICAL QUALITY KIKA Consulting Unavailable AICHHOLZ, RN CLINICAL QUALITY KIKA Admitting Unavailable AICHHOLZ, RN CLINICAL QUALITY KIKA Attending Unavailable AICHHOLZ, RN CLINICAL QUALITY KIKA Primary Care Unavailable AICHHOLZ, RN CLINICAL QUALITY KIKA Consulting Unavailable AICHHOLZ, RN CLINICAL QUALITY KIKA Admitting Unavailable AICHHOLZ, RN CLINICAL QUALITY KIKA Attending Unavailable AICHHOLZ, RN CLINICAL QUALITY KIKA Primary Care Unavailable AICHHOLZ, RN CLINICAL QUALITY KIKA Consulting Unavailable AICHHOLZ, RN CLINICAL QUALITY KIKA Primary Care Unavailable LAWRENCE, DR VINCENZO Rahman Admitting Unavailable LAWRENCE, DR VINCENZO Rahman Attending Unavailable LAWRENCE, DR VINCENZO Rahman Consulting Unavailable CABRERA, DR DEEJAY Rahman Consulting Unavailable MITCHELL ., RAJINDER Consulting Unavailable Aichholz STONEMASON SUPERVISOR, Kika Unavailable Ashish ARMSTRONG, Benji Primary Care Provider Aicbandar, Kika Christi Primary Care Provider LOUIE Zhu Attending Provider Barbara Zhu Attending Unavailable Barbara Zhu Admitting Unavailable Aichholz, Kika J Primary Care Unavailable Aichholz STONEMASON SUPERVISOR, Kika Unavailable Ashish ARMSTRONG, Benji Primary Care Provider [phone] Aichholyoni STONEMASON SUPERVISOR, Kika Unavailable Unallocated , [place] Provider [facility] Ashish ARMSTRONG, Benji Primary Care Provider Ashish ARMSTRONG, Benji Primary Care Provider AICBANDAR, KIKA J Primary Care Unavailable MIKHAIL GASCA Attending Unavailable AICHHOLZ, KIKA Attending Unavailable AICHHOLZ, KIKA Attending Unavailable AICHHOLZ, KIKA Attending Unavailable MILAN GIORDANO Attending Unavailable CLAU LINDSEY Referring Unavailable LINK NAYLOR Attending Unavailable CLAU LINDSEY Referring Unavailable LEANN KUMAR Attending Unavailable CLAU LINDSEY Referring Unavailable LINK NAYLOR Attending Unavailable CLAU LINDSEY Referring Unavailable MILAN GIORDANO Attending Unavailable CLAU LINDSEY Referring Unavailable LINK NAYLOR Attending Unavailable CLAU LINDSEY Referring Unavailable LEANN KUMAR Attending Unavailable CLAU LINDSEY Referring Unavailable AICHHOLZ, KIKA Attending Unavailable AICHHOLZ, KIKA Attending Unavailable AICHHOLZ, KIKA Attending Unavailable AICHHOLZ, KIKA Attending Unavailable Medications Current Medications Medication Drug Class(es) Dates Sig (Normalized) Sig (Original) acetaminophen 325 mg oral tablet (13 sources) Start: 12-21-2018 End: 12-22-2018 take 650 [...] mouth every 4 (four) hours if needed Active take 2 tablets by mo uth every six hours as needed for pain acetaminophen (TYLENOL) 325 MG tablet Ta ke 650 mg by mouth every 6 hours as needed for Pain 0 Active amoxicillin 875 mg / clavulanate 125 mg oral tablet (4 sources) Penicillin-class Antibacterial Start: 04-10-2024 End: 04-20-2024 take 1 tablet by mouth in the morning amoxicillin-clavulanate (Augmentin) 875-125 MG tablet Indications: Acute non-recurrent maxillary sinusitis Take 1 tablet (875 mg) by mouth in the morning and 1 tablet (875 mg) before bedtime. Do all this for 10 days. Take with food. 20 tablet 04/10/2024 04/20/2024 Active Atogepant (Qulipta) 60 MG tablet (11 sources) Start: 04-10-2024 End: 05-10-2024 take 1 tablet by mouth once daily Atogepant (Qulipta) 60 MG tablet Indications: Migraine Take 60 mg by mouth Daily 30 tablet 3 04/10/2024 05/10/2024 Active End: 04-10-2024 take 1 tablet by mouth once daily Atogepant (Qulipta) 60 MG tablet Indications: Migraine Take 60 mg by mouth Daily 04/10/2024 Discontinued (Reorder) take 1 tablet by josette th once daily Atogepant (Qulipta) 60 MG tablet Indications: Migraine Take 60 mg by mouth Daily Active benzocaine 200 mg/ml / menthol 5 mg/ml topical spray (1 source) Standardized Chemical Allergen Start: 12-22-2018 apply 1 dose topically twice daily Topical, 2 TIMES DAILY, First dose on Tue12/22/18 at 0900 Apply to perineal area. Patient is capable and may self administer at bedside. benzonatate 200 mg oral capsule (1 source) Non-narcotic Antitussive Start: 01-21-2024 End: 01-28-2024 take 1 capsule by mouth every eight hours for cough benzonatate (Tessalon) 200 MG capsule Indications: Acute cough Take 1 capsule (200 mg) by mouth every 8 (eight) hours if needed for cough for up to 7 days Take with a full glass of water. Do not crush or chew. 21 capsule 01/21/2024 01/28/2024 Active brompheniramine maleate 0.4 mg/ml / dextromethorphan hydrobromide 2 mg/ml / pseudoephedrine hydrochloride 6 mg/ml oral solution (1 source) alpha-Adrenergic Agonist, Uncompetitive A-ykquir-M-asparta te Receptor Antagonist, Sigma-1 Agonist Start: 05-26-2021 take 10 mL by mouth every six hours Pseudoeph-Bromp hen-DM 30-2-10 MG/5ML 10 mL Orally every 6 hours for 5 days May, Active dextromethorphan hydrobromide 15 mg / guaiFENesin 400 mg / pseudoephedrine hydrochloride 60 mg oral tablet (3 sources) alpha-Adrenergic Agonist, Uncompetitive O-cptbdp-G-asparta te Receptor Antagonist, Sigma-1 Agonist Start: 05-05-2023 take 4 tablets by mouth every twenty-four hours Pseudoephedrine -Dm-Guaifenesin (Capmist Dm) 60-15-400 mg tablet Active 1 TAB PO EVERY 4-6 HOURS May 05, 2023 12:00am do not exceed 4 doses per 24 hrs docusate sodium 100 mg oral capsule (1 source) Start: 12-22-2018 take 100 mg by mouth twice daily as needed for constipation 100 mg, Oral, 2 TIMES DAILY PRN, Constipation, Starting Tue12/22/18 at 0325 Do not crush or break. Norethindrone-E.Estra diol-Iron (4 sources) Estrogen Start: 04-07-2023 take 1 tablet by mouth once daily Norethindrone-E .Estradiol-Iron (Lorelei Fe 1.5/30 (28)) 1.5 mg-30 mcg (21)/75 mg (7) tablet Active 1 TAB PO Daily April 07, 2023 1:00am Start: 04-07-2023 take 1 tablet by josette th once daily Norethindrone-E.Estradiol-Iron (Lorelei Fe 1.5/30 (28)) 1.5 mg-30 mcg (21)/75 mg (7) tablet Active 1 TAB PO Daily April 07, 2023 12:00am ethinyl estradiol 0.03 mg / norethindrone acetate 1.5 mg oral tablet (20 sources) Estrogen Start: 03-20-2024 End: 06-12-2024 take 1 tablet by mouth once daily norethindrone ac-eth estradio (Lorelei 1.5/30) 1.5-30 MG-MCG tablet tablet Indications: Dysmenorrhea Take 1 tablet by mouth Daily 84 tablet 03/20/2024 06/12/2024 Active Start: 07-13-2023 End: 02-07-2024 take 1 tablet by mouth once daily norethindrone ac-eth estradio (Lorelei 1.5/30) 1.5-30 MG-MCG tablet tablet Indications: Dysmenorrhea Take 1 tablet by mouth Daily 84 tablet 1 11/09/2023 Active Start: 12-26-2022 take 1 tablet by josette th in the morning norethindrone ac-eth estradio (Lorelei 1.5/30) 1.5-30 MG-MCG tablet tablet Take 1 tablet by mouth in the morning. 0 12/26/2022 Active ethinyl estradiol 0.035 mg / norgestimate 0.25 mg oral tablet (3 sources) Progestin, Estrogen Start: 02-08-2019 take 1 tablet by mouth once daily norgestimate-ethinyl estradiol (ORTHO-CYCLEN, 28,) 0.25-35 MG-MCG per tablet [...] mcg 2 sprays nasally qd Nov, Active hydrOXYzine pamoate 25 mg oral capsule (15 sources) Antihistamine Start: 11-07-2023 take 1 capsule by mouth twice daily as needed hydrOXYzine pamoate (Vistaril) 25 MG capsule 1-2 capsules as needed Orally twice daily for 30 days As needed for insomnia or panic attack 11/07/2023 Active ibuprofen 800 mg oral tablet (1 [...] Oral, 2 TIMES DAILY, First dose on Tue12/21/18 at 2100 lanolin 0.5 mg/mg topical ointment (1 source) Start: 12-22-2018 Topical, PRN, Dry Skin, nipple discomfort, Starting Tue12/22/18 at 0325, 3 ml liraglutide 6 mg/ml pen injector (19 sources) GLP-1 Receptor Agonist Start: 12-08-2023 End: 04-10-2024 Liraglutide -Weight Management (Saxenda) 18 MG/3ML solution pen-injector Indications: Osteoarthritis of knee, unspecified , Body mass index (BMI) 36.0-36.9, adult Start with 0.6mg daily for 7 days, every 7 days increase the dose by 0.6mg to max dose of 3mg dailyStart with 0.6mg daily for 7 days, every 7 days increase the dose by 0.6mg to max dose of 3mg daily 15 mL 3 12/08/2023 04/10/2024 Discontinued (Therapy completed) Start: 09-28-2023 End: 11-10-2023 Liraglutide -Weight Manageme nt (Saxenda) 18 MG/3ML solution pen-injector Indications: Osteoarthritis of knee, unspecified , Body mass index (BMI) 36.0-36.9, adult Start with 0.6mg daily for 7 days, every 7 days increase the dose by 0.6mg to max dose of 3mg daily 15 mL 3 09/28/2023 11/10/2023 Discontinued (Reorder) Start: 04-07-2023 Liraglutide (W eight Loss) (Saxenda) 3 mg/0.5 mL (18 mg/3 mL) pen injector Active MG SUBCUT April 07, 2023 1:00am meloxicam 15 mg oral tablet (5 sources) Nonsteroidal Anti-inflammatory Drug take 1 tablet by mouth once daily meloxicam (Mobic) 15 MG tablet Take 15 mg by mouth Daily Active Multiple Vitamin (Daily-Vitamin) tablet (7 sources) take 1 tablet by mouth in the morning Multiple Vitamin (Daily-Vitamin) tablet Take 1 tablet by mouth in the morning. Active take 1 tablet by mouth in the mo rning Multiple Vitamin (Daily-Vitamin) tablet Take 1 tablet by mouth in the morning. 0 Active Multiple Vitamins-Minerals (Multi For Her) capsule (1 source) take 1 tablet by mouth in the morning Multiple Vitamins-Minerals (Multi For Her) capsule Take 1 tablet by mouth in the morning. 0 Active oseltamivir 75 mg oral capsule (3 sources) Neuraminidase Inhibitor Start: 2023 take 1 capsule by mouth twice daily Oseltamivir (Tamiflu) 75 mg capsule Active 75 MG PO Twice daily 10 May 05, 2023 12:00am oxytocin (PITOCIN) 30 units in 500 mL infusion (1 source) Start: 2018 oxytocin (PITOCIN) 30 units in 500 mL infusion Pneumatic Walking Boot (1 source) Start: 2023 Pneumatic Walking Boot Active 0 .Route June 16, 2023 12:00am As directed MV & Min w/FA-DHA ( Gummies) 0.18-25 MG chewable tablet (15 sources) Start: 2023 MV & Min w/FA-DHA ( Gummies) 0.18-25 MG chewable tablet as directed Orally 11/07/2023 Active MV-Min-Fe Fum-FA-DHA ( 1 PO) (13 sources) MV-Min- Fe Fum-FA-DHA ( 1 PO) Take by mouth daily 0 Active Semaglutide-Weight Management (Wegovy) 0.25 MG/0.5ML solution auto-injector (4 sources) Start: 2024 End: 2024 Semaglutide-Weight Management (Wegovy) 0.25 MG/0.5ML solution auto-injector Indications: Morbid (severe) obesity due to excess calories (CMS/HCC) Inject 0.25 mg under the skin every 7 (seven) days for 28 days 2 mL 2024 03/29/2024 Active Semaglutide-Weight Management (Wegovy) 0.5 MG/0.5ML solution auto-injector (5 sources) Start: 2024 End: 2024 Semaglutide-Weight Management (Wegovy) 0.5 MG/0.5ML solution auto-injector Indications: Morbid (severe) obesity due to excess calories (CMS/HCC) Inject 0.5 mg under the skin every 7 (seven) days for 28 days 2 mL 04/10/2024 04/10/2024 Discontinued (Therapy completed) Start: 03-27-2024 End: 04-10-2024 Semaglutide-Weight Managemen t (Wegovy) 0.5 MG/0.5ML solution auto-injector Indications: Morbid (severe) obesity due to excess calories (CMS/HCC) , Body mass index (BMI) 36.0-36.9, adult Inject 0.5 mg under the skin every 7 (seven) days for 28 days 2 mL 03/27/2024 04/10/2024 Discontinued (Cost of medication) Start: 03-27-2024 End: 04-24-2024 Semaglutide-Weight Managemen t (Wegovy) 0.5 MG/0.5ML solution auto-injector Indications: Morbid (severe) obesity due to excess calories (CMS/HCC) , Body mass index (BMI) 36.0-36.9, adult Inject 0.5 mg under the skin every 7 (seven) days for 28 days 2 mL 03/27/2024 04/24/2024 Active Semaglutide-Weight Management (Wegovy) 1 MG/0.5ML solution auto-injector (4 sources) Start: 04-10-2024 End: 05-08-2024 Semaglutide-Weight Management (Wegovy) 1 MG/0.5ML solution auto-injector Indications: Morbid (severe) obesity due to excess calories (CMS/HCC) Inject 1 mg under the skin every 7 (seven) days for 28 days 2 mL 04/10/2024 05/08/2024 Active sertraline 50 mg oral tablet (15 sources) Serotonin Reuptake Inhibitor sertraline (Zoloft) 50 MG tablet Take 75 mg by mouth Daily Active 3 ml sodium chloride 9 mg/ml injection (2 sources) Start: 12-22-2018 10 mL, Intrave nous, EVERY 12 HOURS SCHEDULED (2 times per day), First dose on Tue12/22/18 at 0900, Start: 12-22-2018 take 10 mL intravenous route o nce 10 mL, Intravenous, PRN, Line Care, Starting Tue12/22/18 at 0325 After every IV line use tiZANidine 2 mg oral capsule (2 sources) Central alpha-2 Adrenergic Agonist Start: 12-27-2022 take 1 capsule by mouth every eight hours as needed Zanaflex 2 MG capsule Take 2 mg by mouth every 8 (eight) hours if needed 0 12/27/2022 Active Start: 12-22-2022 tiZANidine (Za naflex) 4 MG tablet Take 4 mg by mouth 0 12/22/2022 Active topiramate 25 mg oral tablet (9 sources) Start: 02-23-2023 End: 2024 take 2 tablets by mouth at bedtime topiramate (Topamax) 25 MG tablet Indications: Migraine without aura and without status migrainosus, not intractable (CMS/HCC) Take 2 tablets (50 mg) by mouth at bedtime 60 tablet 1 02/23/2023 Active valACYclovir 500 mg oral tablet (20 sources) Herpesvirus Nucleoside Analog DNA Polymerase Inhibitor, Herpes Simplex Virus Nucleoside Analog DNA Polymerase Inhibitor, Herpes Zoster Virus Nucleoside Analog DNA Polymerase Inhibitor Start: 03-20-2024 End: 04-19-2024 take 1 tablet by mouth once daily valACYclovir (Valtrex) 500 MG tablet Indications: Herpesviral infection, unspecified Take 1 tablet (500 mg) by mouth Daily 30 tablet 5 03/20/2024 04/19/2024 Active Start: 12-13-2018 End: 12-23-2018 take 1 tablet [...] times daily 60 tablet 2 03/02/2017 Active End: 03-20-2024 valACYclovir (Valtrex) 500 M G tablet Take 500 mg by mouth if needed (hpv 2) 03/20/2024 Discontinued Wegovy 0.25 MG/0.5ML solutio n auto-injector (3 sources) Start: 03-27-2024 End: 04-10-2024 Wegovy 0.25 MG/0.5ML solutio n auto-injector Indications: Morbid (severe) obesity due to excess calories (CMS/HCC) Inject 0.25 mg under the skin every 7 (seven) days for 28 days 2 mL 03/27/2024 04/10/2024 Discontinued (Therapy completed) Start: 03-27-2024 End: 04-24-2024 Wegovy 0.25 MG/0.5ML solutio n auto-injector Indications: Morbid (severe) obesity due to excess calories (CMS/HCC) Inject 0.25 mg under the skin every 7 (seven) days for 28 days 2 mL 03/27/2024 04/24/2024 Active witch saurabh 500 mg/ml medicated pad (1 source) Start: 12-22-2018 apply 1 dose topically twice daily Topical, 2 TIMES DAILY, First dose on Tue12/22/18 at 0900 Apply to perineal area. Patient is capable and may self administer at bedside. Completed/Discontinued Medications Medication Drug Class(es) Dates Sig (Normalized) Sig (Original) amoxicillin 500 mg oral capsule (4 sources) Penicillin-class Antibacterial Start: 04-07-2023 End: 05-05-2023 take 500 mg by mouth twice daily Amoxicillin Discontinued 500 MG PO Twice daily April 07, 2023 1:00am May 05, 2023 3:57pm Blood Glucose Monitoring Suppl (TRUE METRIX METER) [...] Start: 12-21-2018 End: 12-22-2018 lactated ringers infusion FLUoxetine 20 mg oral capsule (3 sources) Serotonin Reuptake Inhibitor Start: 09-28-2023 End: 11-09-2023 take 1 capsule by mouth once daily FLUoxetine (PROzac) 20 MG capsule Indications: Anxiety and depression (CMS/HCC) Take 1 capsule (20 mg) by mouth Daily 30 capsule 1 09/28/2023 11/09/2023 Discontinued ondansetron 4 mg disintegrating oral tablet (4 sources) Serotonin-3 Receptor Antagonist Start: 04-07-2023 End: 05-05-2023 take 4 mg by mouth every six hours Ondansetron Discontinued 4 MG PO Every 6 hours April 07, 2023 1:00am May 05, 2023 3:57pm predniSONE 20 mg oral tablet (2 sources) [...] End: 12-06-2018 fleet rectal enema 1 enema SUMAtriptan 50 mg oral tablet (4 sources) Serotonin-1b and Serotonin-1d Receptor Agonist Start: 12-22-2022 End: 11-09-2023 take 1 tablet by mouth once SUMAtriptan (Imitrex) 50 MG tablet Take 50 mg by mouth 1 (one) time if needed 12/22/2022 11/09/2023 Discontinued (Therapy completed) Problems Active Problems Problem Classification Problem Date Documented Date Episodic/Chronic Anxiety disorders (20 sources) Mixed anxiety and depressive disorder; Translations: [Anxiety disorder, unspecified] Onset: 08-23-2023 Resolved: 02-06-2024 08-23-2023 Chronic Essential hypertension (20 sources) Hypertensive disorder; Translations: [Essential (primary) hypertension] Onset: 12-04-2018 12-04-2018 Chronic Headache; including migraine (20 sources) Migraine without aura, not refractory ; Translations: [Migraine without aura, not intractable, without status migrainosus] Onset: 02-10-2023 02-10-2023 Chronic Hypertension complicating ; childbirth and the puerperium (10 sources) Pre-existing hypertension in obstetric context; Translations: [Pre-existing essential hypertension during in third trimester] 12-04-2018 Chronic Immunizations and screening for infectious disease (20 sources) Serology positive; Translations: [Contact with and (suspected) exposure to other viral communicable diseases] Onset: 12-10-2020 Resolved: 01-14-2021 12-22-2018 Episodic Influenza (3 sources) Influenza due to other identified influenza virus with other respiratory manifestations; Translations: [Influenza due to identified 2009 H1N1 influenza virus with other respiratory manifestations] 05-05-2023 Episodic Joint disorders and dislocations; trauma-related (17 sources) Derangement of left knee; Translations: [Unspecified internal derangement of left knee] Onset: 02-17-2023 02-17-2023 Chronic Menstrual disorders (20 sources) Amenorrhea; Translations: [Irregular periods] Onset: 02-23-2023 Chronic Mood disorders (20 sources) Moderate major depression ; Translations: [Major depressive disorder, single episode, moderate] Onset: 11-09-2023 Resolved: 2024 11-09-2023 Chronic Osteoarthritis (18 sources) Osteoarthritis of knee; Translations: [Osteoarthritis of knee, unspecified] Onset: 02-17-2023 02-17-2023 Chronic Other aftercare (1 source) Other terminal operator (current) drug therapy; Translations: [OTH JAIL CURRENT DRUG THERAPY] Onset: 04-06-2022 Episodic Other complications of (14 sources) Anemia in mother complicating , childbirth AND/OR puerperium; Translations: [Anemia affecting in third trimester] Onset: 01-23-2016 Resolved: 03-20-2016 03-20-2016 Chronic Other connective tissue disease (1 source) Other muscle spasm; Translations: [OTHER MUSCLE SPASM] Onset: 04-06-2022 Episodic Other connective tissue disease (1 source) Hand pain Onset: 02-04-2024 Episodic Other injuries and conditions due to external causes (3 sources) Injury, unspecified, initial encounter; Translations: [Unspecified site injury] Onset: 06-16-2023 06-16-2023 Episodic Other injuries and conditions due to external causes (1 source) Unspecified injury of left wrist, hand and finger(s), initial encounter; Translations: [Unspecified injury of left wrist, hand and finger(s), initial encounter] Onset: 02-04-2024 Episodic Other nutritional; endocrine; and metabolic disorders (1 source) Obesity, unspecified; Translations: [OBESITY UNSPECIFIED] Onset: 09-22-2021 Chronic Other nutritional; endocrine; and metabolic disorders (20 sources) Obesity caused by energy imbalance; Translations: [Other obesity due to excess calories] Onset: 02-23-2023 Resolved: 08-23-2023 02-23-2023 Chronic Other nutritional; endocrine; and metabolic disorders (20 sources) Body mass index 30+ - obesity; Translations: [Body mass index (BMI) 35.0-35.9, adult] Onset: 03-23-2023 03-23-2023 Chronic Other and delivery including normal (20 sources) Delivery normal; Translations: [ with uncertain dates] Onset: 01-09-2016 Resolved: 03-20-2016 02-09-2016 Episodic Other upper respiratory infections (20 sources) Acute sinusitis, unspecified; Translations: [Acute upper [...] COUGH, UNSPECIFIED; Translations: [COUGH, UNSPECIFIED] Onset: 09-29-2021 Unclassified (1 source) LT Hand Injury- Workers Comp. Onset: 02-04-2024 Viral infection (20 sources) Anogenital herpesviral infection; Translations: [Anogenital herpesviral infection, unspecified] Onset: 03-29-2013 02-09-2016 Chronic Viral infection (11 sources) Herpes simplex; Translations: [Herpesviral infection, unspecified] 04-07-2023 Episodic Viral infection (2 sources) COVID-19; Translations: [Disease caused by 2019-nCoV] Onset: 09-29-2021 Past or Other Problems Problem Classification Problem Date Documented Da te Episodic/Chronic Complications of surgical procedures or medical care (1 source) Infection following a procedure, unspecified, initial encounter; Translations: [INFECTION FOLLOWING PROC UNSP INIT] Onset: 12-24-2021 Episodic Contraceptive and procreative management (16 sources) Oral contraception status; Translations: [Encounter for surveillance of contraceptive pills] Onset: 07-12-2023 07-12-2023 Episodic Diabetes or abnormal glucose tolerance complicating ; childbirth; or the puerperium (20 sources) Gestational diabetes mellitus, class A>1<; Translations: [Gestational diabetes mellitus] Onset: 01-09-2016 Resolved: 04-20-2023 01-09-2016 Episodic Early or threatened labor (13 sources) Premature uterine contraction; Translations: [ uterine contractions in third trimester, antepartum] Onset: 01-09-2016 Resolved: 03-20-2016 03-20-2016 Episodic distress and abnormal forces of labor (20 sources) Irregular uterine contractions; Translations: [Irregular uterine contractions] Onset: 01-07-2016 Resolved: 03-20-2016 03-20-2016 Episodic Malaise and fatigue (16 sources) Fatigue; Translations: [Other fatigue] Onset: 04-20-2023 04-20-2023 Episodic Nausea and vomiting (13 sources) Nausea and vomiting; Translations: [Nausea and vomiting during ] Onset: 01-22-2016 Resolved: 03-20-2016 03-20-2016 Episodic Nonmalignant breast conditions (17 sources) Breast lump; Translations: [Unspecified lump in the right breast, upper outer quadrant] Onset: 03-23-2023 03-23-2023 Episodic Other complications of (20 sources) Herpes in ; Translations: [Other viral diseases complicating , unspecified trimester] Onset: 01-10-2016 01-13-2016 Episodic Other connective tissue disease (17 sources) Pain of left calf; Translations: [Pain in left lower leg] Onset: 02-17-2023 Resolved: 09-28-2023 02-17-2023 Episodic Other gastrointestinal disorders (13 sources) Diarrhea; Translations: [Diarrhea in adult patient] Onset: 01-22-2016 Resolved: 03-20-2016 03-20-2016 Episodic Other gastrointestinal disorders (8 sources) Constipation; Translations: [Constipation during in third trimester] Onset: 12-05-2018 12-05-2018 Episodic Other lower respiratory disease (12 sources) Cough; Translations: [Acute cough] Onset: 01-21-2024 Resolved: 02-06-2024 01-21-2024 Episodic Other non-traumatic joint disorders (20 sources) Pain in left knee; Translations: [Pain in joint, lower leg] Onset: 06-01-2022 Resolved: 09-28-2023 Episodic Other non-traumatic joint disorders (16 sources) Swollen ankle region; Translations: [Effusion, left ankle] Onset: 06-23-2023 06-23-2023 Episodic Other screening for suspected conditions (not [...] Resolved: 03-20-2016 03-20-2016 Episodic Residual codes; unclassified (15 sources) Non-smoker; Translations: [Other specified health status] Onset: 11-09-2023 Resolved: 02-06-2024 11-09-2023 Episodic Residual codes; unclassified (12 sources) Gestation period, 38 weeks; Translations: [38 weeks gestation of ] Onset: 02-09-2016 Resolved: 03-20-2016 03-20-2016 Sprains and strains (17 sources) Sprain of unspecified ligament of left ankle, initial encounter; Translations: [Sprain of ankle, unspecified site] Onset: 06-21-2023 06-16-2023 Episodic Superficial injury; contusion (16 sources) Contusion of left knee; Translations: [Contusion of left knee, initial encounter] Onset: 06-23-2023 Resolved: 09-28-2023 09-28-2023 Episodic Unclassified (1 source) COUGH, UNSPECIFIED; Translations: [COUGH, UNSPECIFIED] Onset: 09-28-2021 Urinary tract infections (17 sources) Urinary tract infection, site not specified; Translations: [Urinary tract infectious disease] Onset: 04-06-2022 Resolved: 11-09-2023 11-09-2023 Episodic Results Test Name Value Interpretation Reference Range Facility MR HEAD/BRAIN WO CONon 04-16 [place] [address] Magnetic Resonance Report Signed Patient: ROBLES YEN MR#: [id number] : 1985 Acct:[id number] Age/Sex: 39 / F ADM Date: 04/16/24 Loc: MRI Attending Dr: Kika Guaman NP Ordering Physician: Kika Guaman NP Date of Service: 04/16/24 Procedure(s): MR head/brain wo con Accession Number(s): [id number] cc: Kika Guaman NP [place] [id number] Patient Name: ROBLES YEN MRN: TB[facility]:[id number] date: 1985 Sex: F Assigned Patient Location: MRI Current Patient Location: MRI Accession/Order Number: [id number] Exam Date: 04/16/2024 15:32 Report Date: 04/16/2024 15:55 At the request of: KIKA GUAMAN NP Procedure: MR head/brain wo con EXAMINATION: MRI OF THE BRAIN WITHOUT CONTRAST CLINICAL HISTORY: Chronic migraine headaches G43.009 COMPARISON: CT 04/05/2023 TECHNIQUE: Multiecho, multiplanar imaging of the brain was performed without enhancement. The ventricles are normal in size and position. There are no areas of abnormal signal intensity within the supra- or infratentorial brain. No restricted diffusion is identified to suggest a recent ischemic event. There are no extra-axial collections or mass effect. Empty sella is again visualized. There may be a trace amount of fluid within the optic nerve sheaths. Bilateral maxillary and ethmoid mucosal thickening is seen. The mastoid air cells are clear. MR/MR head/brain wo con IMPRESSION: MINOR CHRONIC SINUSITIS. FINDINGS WHICH COULD RAISE QUESTION A IDIOPATHIC INTRACRANIAL HYPERTENSION (PSEUDOTUMOR CEREBRI). CLINICAL CORRELATION IS RECOMMENDED. NO OTHER ACUTE FINDINGS. Impression dictated by: Pascale Pena M.D.04/16/2024 3:55 PM Dictation Location: [place] [address] Electronically authenticated by: [id number] Y Date: 04/16/2024 15:55 Dictated By: Pascale Pena M.D. Signed By: 04/16/24 1557 DD/ 54 TD/TT: Ingot Stripper: [facility] Radiology, Radiologist, MD - 04/16/2024 [place] [address] Magnetic Resonance Report Signed Patient: ROBLES YEN MR#: [id number] : 1985 Acct:[id number] Age/Sex: 39 / F ADM Date: 04/16/24 Loc: MRI Attending Dr: Kika Guaman NP Ordering Physician: Kika Guaman NP Date of Service: 04/16/24 Procedure(s): MR head/brain wo con Accession Number(s): [id number] cc: Kika Guaman NP [place] [id number] Patient Name: ROBLES YEN MRN: [facility]:[id number] date: 1985 Sex: F Assigned Patient Location: MRI Current Patient Location: MRI Accession/Order Number: [id number] Exam Date: 04/16/2024 15:32 Report Date: 04/16/2024 15:55 At the request of: KIKA GUAMAN NP Procedure: MR head/brain wo con EXAMINATION: MRI OF THE BRAIN WITHOUT CONTRAST CLINICAL HISTORY: Chronic migraine headaches G43.009 COMPARISON: CT 04/05/2023 TECHNIQUE: Multiecho, multiplanar imaging of the brain was performed without enhancement. The ventricles are normal in size and position. There are no areas of abnormal signal intensity within the supra- or infratentorial brain. No restricted diffusion is identified to suggest a recent ischemic event. There are no extra-axial collections or mass effect. Empty sella is again visualized. There may be a trace amount of fluid within the optic nerve sheaths. Bilateral maxillary and ethmoid mucosal thickening is seen. The mastoid air cells are clear. MR/MR head/brain wo con IMPRESSION: MINOR CHRONIC SINUSITIS. FINDINGS WHICH COULD RAISE QUESTION A IDIOPATHIC INTRACRANIAL HYPERTENSION (PSEUDOTUMOR CEREBRI). CLINICAL CORRELATION IS RECOMMENDED. NO OTHER ACUTE FINDINGS. Impression dictated by: Pascale Pena M.D.04/16/2024 3:55 PM Dictation Location: [place] [address] Electronically authenticated by: [id number] Y Date: 04/16/2024 15:55 Dictated By: Pascale Pena M.D. Signed By: 04/16/24 1557 DD/ 54 TD/TT: Ingot Stripper: [facility] [employer] Radiology Study observation (narrative) [facility] [employer] MR HEAD/BRAIN WO CONOrdered By: Radiologist Radiology on 04-16-2024 [facility] [employer] Work Phone: XR HAND LT MIN 3 VWSon 02-03 XR HAND LT MIN 3 VWS XR HAND LT MIN 3 VWS XR HAND LT MIN 3 VWS HISTORY: Fourth and fifth digit pain, caught in railing while walking downstairs COMPARISON: None FINDINGS: No acute fracture or dislocation. Joint spaces appear well-preserved. No obvious soft tissue abnormality. IMPRESSION: * No acute osseous abnormality Approved by Resident: Jimmy Bullock MD on 02/04/2024 5:18 PM I, Pete Raphael MD have personally reviewed the image(s) and agree with and/or edited the report 27 Finalized by Pete Raphael MD on 02/04/2024 5:[address] [facility] XR ankle LT min 3V*on 2023 XR ankle LT min 3V* [facility] Main [place] [address] [place] [address] XRay Report Signed Patient: Robles Yen MR#: [id number] : 1985 Acct:[id number] Age/Sex: 38 / F ADM Date: 06/16/23 Loc: XDUCLY Room: Type: [facility] Attending Dr: Barbara Zhu APRN Copies to: Barbara Zhu APRN Ordering Provider: Barbara Zhu APRN Date of Service: 06/16/23 XR/XR ankle LT min 3V*: LEFT ANKLE PAIN LEFT ANKLE - 3 views CLINICAL DATA: Patient twisted left ankle stepping down onto the ground. Lateral pain and swelling. COMPARISON: None AP, lateral and oblique views were obtained. There are chronic-appearing bony ossicles projecting between the tip of the lateral malleolus and the talus. These might relate to an old injury. Acute fracture is thought less likely though given the presence of overlying soft tissue swelling, clinical correlation is still suggested. No other suspected acute fractures or dislocation are identified. The talar dome is intact. There is a tiny ankle effusion. XR/XR ankle LT min 3V* IMPRESSION: LATERAL SOFT TISSUE SWELLING. BONY CHANGES NEAR THE TIP OF THE LATERAL MALLEOLUS FAVORING AN OLD INJURY HOWEVER CLINICAL CORRELATION IS SUGGESTED. Impression dictated by: Pascale Pena M.D.06/16/2023 4:55 PM Dictation Location: [place] [address] Transcribed By: [facility] 06/16/23 1655 Dictated By: Pascale Pena MD 06/16/23 165 Signed By: 06/16/23 165 Normal [facility] Influenza virus B Ag [Presen ce] in Upper respiratory specimen by Rapid immunoassayon 05-05-2023 FLUBV Ag IA.rapid Ql (Nph) Negative [facility] No Panel Informationon 05-04 Influenza Type A (Rapid) Positive [facility] POC SARS CoV-2 Antigen Negative [facility] - Microbiology an d Antimicrobial susceptibilityOrdered By: Barbara Zhu on 04-07-2023 SARS-CoV-2 (COVID-19) RNA GERALDINE+probe Ql (Unsp spec) [facility] No Panel InformationOrdered By: Barbara Zhu on 04-07-2023 Quick Strep (POC) [facility] Quick Strep (POC) [facility] IGP,APTIMA HPV,AGE GDLNon AGE GDLN ACOG TESTING Note . [facility] Comment on above: TESTS RESULT FLAG UN ITS REF RANGE LAB Clinician Provided Cytology Information Source.............Cervix;Endocervix No. of containers..01 ThinPrep Vial Age Algo ACOG Orin... FLAG LEGEND: L-Low Normal,H-High Normal,LL-Alert Low,HH-Alert High <-Panic Low,>-Panic High,A-Abnormal,AA-Critical Abnormal Performed at: 01 =[address] [address] Verenice Minaya MD, HPV APTIMA Negative Negative [facility] Comment on above: This nucleic acid am plification test detects fourteen high- risk HPV types (16,18,31,33,35,39,45,51,52,56,58,59,66,68) without differentiation. Performed at: =[address] [id number] Warehouse Puller: Verenice Minaya MD, Phone: [phone] Performed at: [address] [id number] Warehouse Puller: Verenice Minaya MD, Phone: [phone] IGP, APTIMA HPV, RFX 16/18,45 Note . [facility] Comment on above: TESTS RESULT FLAG UN ITS REF RANGE LAB DIAGNOSIS: 02 NEGATIVE FOR INTRAEPITHELIAL LESION OR MALIGNANCY. CELLULAR CHANGES ASSOCIATED WITH INFLAMMATION ARE PRESENT. Specimen adequacy: 02 Satisfactory for evaluation. No endocervical component is identified. Performed by: 02 Lori Howard, Electronic Organ Technician (ASC) . 02 Note: Note 02 The Pap [...] <-Panic Low,>-Panic High,A-Abnormal,AA-Critical Abnormal Performed at: [address] [address] Verenice Minaya MD, BROOM-ALONE CERVIX ENDOCERVIX CLINISYNC [facility] MRI KNEE LT WO CONon 023 MRI [...] RONALD JOHN Date: 2022-06-01 13:[address] [facility] CULTURE URINEon 04-07-2022 CULTURE URINE Isolate 1 Escherichia coli 10,000 cfu/mL of ORGANISM 1 Escherichia coli ANTIBIOTIC M.I.C RX STATUS Ampicillin >=32 R F Ampicillin/Sulbact am >=32 R F Cefazolin 8 S F Ceftazidime <=1 S F Ceftriaxone <=1 S F Ertapenem <=0.5 S F Imipenem <=0.25 S F Amikacin <=2 S F Gentamicin >=16 R F Tobramycin 8 I F Ciprofloxacin <=0.25 S F Levofloxacin <=0.12 S F Nitrofurantoin <=16 S F Trimethoprim/Sulfa methoxazole <=[address] S F [address] [facility] Comment on above: Performed By: #### [facility] #### [facility] Laboratory [address] [place] [address] Dr. Latanya Donis ER URINE PROFILEon 3 Bilirubin Ql (U) Negative Normal NEGATIVE The [facility] Comment on above: Performed By: #### LEE LUNA #### [facility] [address] [place] [address] Dr. Latanya Donis Clarity (U) CLEAR Normal CLEAR [facility] Comment on above: Performed By: #### LEE LUNA #### [facility] [address] [place] [address] Dr. Latanya Donis Color (U) BROWN Abnormal YELLOW [facility] Comment on above: Performed By: #### Arti BOYLE UMICRO #### [facility] [address] [place] [address] Dr. Latanya DUTTON A micrscopic examination will be performed if indicated. Normal [facility] Comment on above: Performed By: #### E RUR UMICRO #### [facility] [address] [place] [address] Dr. Latanya Donis Glucose Ql (U) Negative Normal NEGATIVE The [facility] Comment on above: Performed By: #### E TAMAR UMICRO #### [facility] [address] [place] [address] Dr. Latanya Donis Hemoglobin Ql (U) LARGE Abnormal NEGATIVE The [facility] Comment on above: Performed By: #### Arti BOYLE UMICRO #### [facility] [address] [place] [address] Dr. Latanya Donis Ketones Ql (U) Negative Normal NEGATIVE [facility] Comment on above: Performed By: #### Arti BOYLE UMICRO #### [facility] [address] [place] [address] Dr. Latanya Donis LEUKOCYTES MODERATE Abnormal NEGATIVE [facility] Comment on above: Performed By: #### Arti BOYLE UMICRO #### [facility] [address] [place] [address] Dr. Latanya Donis Nitrite Ql (U) Positive Abnormal NEGATIVE [facility] Comment on above: Performed By: #### Arti BOYLE, UMICRO #### [facility] [address] [place] [address] Dr. Latanya Donis pH (U) 5.5 [pH] Normal 5-[address] [facility] Comment on above: Performed By: #### E TAMAR, UMICRO #### [facility] [address] [place] [address] Dr. Latanya Donis Protein (U) [Mass/Vol] 100 mg/dL Abnormal NEGAT SHADIA/ TRACE [facility] Comment on above: Performed By: #### Arti BOYLE, UMICRO #### [facility] [address] [place] [address] Dr. Latanya Donis SPEC GRAVITY 1.025 Normal 1.005-<=1.025 [facility] Comment on above: Performed By: #### E TAMAR, UMICRO #### [facility] [address] [place] [address] Dr. Latanya Donis UR MICRO IND INDICATED Normal [facility] Comment on above: Performed By: #### E TAMAR, UMICRO #### [facility] [address] [place] [address] Dr. Latanya Donis Urobilinogen Qn (U) 1.0 {Hanny'U}/dL Normal 0.2 - 1. 0 [facility] Comment on above: Performed By: #### Arti BOYLE UMICRO #### [facility] [address] [place] [address] Dr. Latanya Donis URINE MICROSCOPIC ONLYon BACTERIA MODERATE Abnormal NONE SEEN [facility] Comment on above: Performed By: #### Arti BOYLE UMICRO #### [facility] [address] [place] [address] Dr. Latanya Donis Bacteria identified Cx Nom (U) INDICATED Normal [facility] Comment on above: Performed By: #### Arti BOYLE, UMICRO #### [facility] [address] [place] [address] Dr. Latanya Donis CAST NONE SEEN Normal NONE SEEN [facility] Comment on above: Performed By: #### E TAMAR, UMICRO #### [facility] [address] [place] [address] Dr. Latanya Donis Crystals LM Nom (Urine sed) NONE SEEN Normal NONE SEEN [facility] Comment on above: Performed By: #### E TAMAR, UMICRO #### [facility] [address] [place] [address] Dr. Latanya Donis Epithelial cells LM Ql (Urine sed) NONE SEEN Normal NONE SEEN /RARE [facility] Comment on above: Performed By: #### LEE LUNA #### [facility] [address] [place] [address] [address] Latanya Donis MUCOUS NONE SEEN Normal NONE SEEN [facility] Comment on above: Performed By: #### STEFANIA LUNARO #### [facility] [address] [place] [address] [address] Latanya Donis RBC (U) [#/Vol] /uL Abnormal 0-2 [facility] Comment on above: Performed By: #### STEFANIA LUNARO #### [facility] [address] [place] [address] [address] Latanya Donis WBC 5-10 Abnormal NONE SEEN [facility] Comment on above: Performed By: #### STEFANIA LUNARO #### [facility] [address] [place] [address] FACIAL BONES W [...] DEEJAY REES Date: 2021-12-22 22:[address] [facility] CBC AUTO DIFFon 12-22-2021 BASO # 0.0 103/ul Normal 0.0-0.1 [facility] Comment on above: Performed By: #### C BC #### [facility] [address] [place] [address] [address] Latanya Donis Basophils/100 WBC (Bld) 0.3 % Normal 0.2-2.0 [facility] Comment on above: Performed By: #### C BC #### [facility] [address] [place] [address] [address] Latanya Donis EO # 0.1 103/ul Normal 0.0-0.7 [facility] Comment on above: Performed By: #### C BC #### [facility] [address] [place] [address] Dr. Latanya Donis Eosinophils/100 WBC (Bld) 0.6 % Critically low 0.9-7.0 [facility] Comment on above: Performed By: #### C BC #### [facility] [address] [place] [address] Dr. Latanya Donis Erythrocyte distribution width (RBC) [Ratio] 12.2 % Normal 11.0-15.0 [facility] Comment on above: Performed By: #### C BC #### [facility] [address] [place] [address] [address] Latanya Donis Hematocrit (Bld) [Volume fraction] 37.1 % Normal 36.0-48.0 [facility] Comment on above: Performed By: #### C BC #### [facility] [address] [place] [address] Dr. Latanya Donis Hemoglobin (Bld) [Mass/Vol] 12.5 g/dL Normal 12.0-16.0 [facility] Comment on above: Performed By: #### C BC #### [facility] [address] [place] [address] [address] Latanya Donis IG # 0.03 10e3/ul Normal 0.00-0.03 [facility] Comment on above: Performed By: #### C BC #### [facility] [address] [place] [address] Dr. Latanya Donis IG % 0.3 % Normal 0.0-0.5 [facility] Comment on above: Performed By: #### C BC #### [facility] [address] [place] [address] Dr. Latanya Donis LYMPH # 1.6 103/ul Normal 1.2-3.8 [facility] Comment on above: Performed By: #### C BC #### [facility] [address] [place] [address] Dr. Latanya Donis Lymphocytes/100 WBC (Bld) 17.1 % Critically low 20.5-60.0 [facility] Comment on above: Performed By: #### C BC #### [facility] [address] [place] [address] Dr. Latanya Donis MANUAL DIFF REQ NO Normal [facility] Comment on above: Performed By: #### C BC #### [facility] [address] [place] [address] Dr. aLtanya Donis MCH (RBC) [Entitic mass] 29.3 pg Normal 26.7-34.0 [facility] Comment on above: Performed By: #### C BC #### [facility] [address] [place] [address] Dr. Latanya Donis MCHC (RBC) [Mass/Vol] 33.7 g/dL Normal 29.9-35.2 [facility] Comment on above: Performed By: #### C BC #### [facility] [address] [place] [address] Dr. Latanya Donis MCV (RBC) [Entitic vol] 86.9 fL Normal 81.0-99.0 [facility] Comment on above: Performed By: #### C BC #### [facility] [address] [place] [address] Dr. Latanya Donis MONO # 0.8 103/ul Normal 0.3-0.8 [facility] Comment on above: Performed By: #### C BC #### [facility] [address] [place] [address] Dr. Latanya Donis Monocytes/100 WBC (Bld) 8.2 % Normal 1.7-12.0 [facility] Comment on above: Performed By: #### C BC #### [facility] [address] [place] [address] Dr. Latanya Donis NEUT # 7.0 103/ul Critically high 1.4-6.5 [facility] Comment on above: Performed By: #### C BC #### [facility] [address] [place] [address] Dr. Latanya Donis Neutrophils/100 WBC (Bld) 73.5 % Normal 43.0-75.0 [facility] Comment on above: Performed By: #### C BC #### [facility] [address] [place] [address] Dr. Latanya Donis Platelet mean volume (Bld) [Entitic vol] 11.4 fL Normal 9.5-13.5 [facility] Comment on above: Performed By: #### C BC #### [facility] [address] [place] [address] Dr. Latanya Donis PLT 266 103/ul Normal 150-450 [facility] Comment on above: Performed By: #### C BC #### [facility] [address] [place] [address] Dr. Latanya Donis RBC 4.27 106/ul Normal 4.20-5.40 [facility] Comment on above: Performed By: #### C BC #### [facility] [address] [place] [address] Dr. Latanya Donis WBC 9.5 103/ul Normal 4.0-11.0 [facility] Comment on above: Performed By: #### C BC #### [facility] [address] [place] [address] Dr. Latanya Donis CULTURE BLOODon 12-22-2021 Microscopic examination of blood, culture Culture Observations: NO GROWTH AT [address] [facility] Comment on above: Performed By: #### C VDTBH #### [facility] [address] [place] [address] Dr. Latanya Donis Microscopic examination of blood, culture Culture Observations: NO GROWTH AT 5 DAYS. Normal [facility] Comment on above: Performed By: #### C VDTB #### [facility] [address] [place] [address] Dr. Latanya Donis PROF CHEM 8 (BAS METB)on Anion gap [Moles/Vol] 12.1 mmol/L Normal [facility] Comment on above: Performed By: #### B MP #### [facility] [address] [place] [address] Dr. Latanya Donis Calcium [Mass/Vol] 8.9 mg/dL Normal 8.5-10.1 [facility] Comment on above: Performed By: #### B MP #### [facility] [address] [place] [address] Dr. Latanya Donis Chloride [Moles/Vol] 107 mmol/L Normal 98-[address] [facility] Comment on above: Performed By: #### B MP #### [facility] [address] [place] [address] Dr. Latanya Donis CO2 [Moles/Vol] 25.3 mmol/L Normal 21.0-32.0 [facility] Comment on above: Performed By: #### B MP #### [facility] [address] [place] [address] Dr. Latanya Donis Creatinine [Mass/Vol] 0.99 mg/dL Normal 0.55-1.02 [facility] Comment on above: Performed By: #### B MP #### [facility] [address] [place] [address] Dr. Latanya Donis EGFR-AF GREEK >60 Normal >=60 [facility] Comment on above: Performed By: #### B MP #### [facility] [address] [place] [address] Dr. Latanya Donis EGFR-NON AF GREEK >60 Normal >=60 [facility] Comment on above: Performed By: #### B MP #### [facility] [address] [place] [address] Dr. Latanya Donis Glucose [Mass/Vol] 94 mg/dL Normal 74-106 [facility] Comment on above: Performed By: #### B MP #### [facility] [address] [place] [address] Dr. Latanya Donis Potassium [Moles/Vol] 3.4 mmol/L Critically low 3.5-5.1 [facility] Comment on above: Performed By: #### B MP #### [facility] [address] [place] [address] [address] Latanya Donis Sodium [Moles/Vol] 141 mmol/L Normal 136-145 [facility] Comment on above: Performed By: #### B MP #### [facility] [address] [place] [address] Dr. Latanya Donis Urea nitrogen [Mass/Vol] 11.0 mg/dL Normal 7.0-18.0 [facility] Comment on above: Performed By: #### B MP #### [facility] [address] [place] [address] Dr. Latanya Donis Urea nitrogen/Creatinine [Mass ratio] 11.1 mg/mg Normal [facility] Comment on above: Performed By: #### B MP #### [facility] [facility] [address] [place] [address] Dr. Latanya Donis CHLAMYDIA/GONOCOCCUS GERALDINE (SW AB/URINE/PAPon 10-13-2021 Chlamydia trachomatis, GERALDINE Negative Normal Negative [facility] Comment on above: Performed By: #### C VDTBH #### [facility] [address] [place] [address] Dr. Latanya Donis Neisseria gonorrhoeae, GERALDINE Negative Normal Negative [facility] Comment on above: Performed By: #### C VDTBH #### [facility] [address] [place] [address] Dr. Latanya Donis HEPATITIS PANEL, ACUTEon HBsAg Screen Negative Normal Negative [facility] Comment on above: Performed By: #### H EPACUT #### [facility] [address] [place] [address] Dr. Latanya Donis HCV AB <0.1 Normal 0.0-0.9 [facility] Comment on above: Performed By: #### H EPACUT #### [facility] [address] [address] [address] Latanya Donis Hep A Ab, IgM Negative Normal Negative [facility] Comment on above: Performed By: #### H EPACUT #### [facility] [address] [place], [place] [address] Dr. Latanya Donis Hep B Core Ab, IgM Negative Normal Negative [facility] Comment on above: Performed By: #### H EPACUT #### [facility] [address] [address] [address] Latanya Donis Interpretation: Comment Normal [facility] Comment on above: Result Comment: Nega tive Not infected with HCV, unless recent infection is suspected or other evidence exists to indicate HCV infection. Performed By: #### H EPACUT #### [facility] [address] [place] [address] Dr. Latanya Donis HIV 1 AND 2 WITH REFLEXon HIV Screen 4th Generation wRfx Non-Reactive Normal Non Reactive [facility] Comment on above: Result Comment: HIV Negative HIV-1/HIV-2 antibodies and HIV-1 p24 antigen were NOT detected. There is no laboratory evidence of HIV infection. Performed By: #### H IV12 #### [facility] [address] [address] [address] Latanya Donis RPR QUANTon 10-10-2021 Rapid Plasma Reagin, Quant Non-Reactive Normal NonRea<1:1 [facility] Comment on above: Result Comment: Plea se Note: This test does not meet current guidelines for screening and diagnosis of syphilis. This test is intended for following treatment response in patients being treated for syphilis infection. To screen for syphilis infection, a reflex cascade that includes both RPR and a treponema-specific assay should be utilized, such as Treponema pallidum (Syphilis) Screening Grady (352486) or Rapid Plasma Reagin (RPR) Test With Reflex to Quantitative RPR and Confirmatory Treponema pallidum Antibodies (311793). Performed By: #### C VDTBH #### [facility] [address] [address] [address] Latanya Donis VAGINITIS/VAGINOSIS DNA PROB Kirill 10-10-2021 Delmy species Negative Normal Negative [facility] Comment on above: Performed By: #### V AGINT #### [facility] [address] [place] [address] Dr. Latanya Donis Gardnerella vaginalis Negative Normal Negative [facility] Comment on above: Performed By: #### V AGINT #### [facility] [address] [address] [address] Latanya Donis Trichomonas vaginalis Negative Normal Negative [facility] Comment on above: Performed By: #### V AGINT #### [facility] [address] [place] [address] Dr. Latanya Donis Covid-19 PCR (CVDTB)on SARS-CoV-2 (COVID-19) RNA GERALDINE+probe Ql (Unsp spec) Detected Critically abnormal NOT DETECTED [facility] Comment on above: Result Comment: This test is not yet approved or cleared by the [place] FDA. When there are no FDA-approved or cleared tests available, and other criteria are met, FDA can make tests available under an emergency access mechanism called an Emergency Use Authorization (EUA). The EUA for this test is supported by the Dietitian Consultant of Health and Human Service's declaration that [...] used). Performed By: #### C VDTBH #### [facility] [address] [place] [address] Dr. Latanya Donis INSULINon 09-18-2021 Insulin 6.9 uIU/mL Normal 2.6-24.[address] [facility] Comment on above: Performed By: #### I NSULIN #### [facility] [address] [place] [address] Dr. Latanya Donis FREE T4on 07-27-2022 Free T4 [Mass/Vol] 0.79 ng/dL Normal 0.76-1.46 [facility] Comment on above: Performed By: #### C VDTBH #### [facility] [address] [place] [address] Dr. Latanya Donis GLYCOHEMOGLOBIN A1Con 2021 ADA RECOMMENDATION SEE BELOW Normal [facility] Comment on above: Result Comment: ADA RECOMMENDED LIMIT 4.0 - 6.0 ADA THERAPEUTIC TARGET < 7.0 ACTION SUGGESTED > 7.0 Performed By: #### A 1C #### [facility] [address] [address] [address] Latanya Donis Glucose [Mass/Vol] 91 mg/dL Normal [facility] Comment on above: Performed By: #### A 1C #### [facility] [address] [place] [address] Dr. Latanya Donis HbA1c (Bld) [Mass fraction] 4.8 % Normal 4.5-6.2 [facility] Comment on above: Performed By: #### A 1C #### [facility] [address] [place] [address] Dr. Latanya Donis PROF CHEM 8 (BAS METB)on Anion gap [Moles/Vol] 10.0 mmol/L Normal [facility] Comment on above: Performed By: #### C VDTBH #### [facility] [address] [place] [address] Dr. Latanya Donis Calcium [Mass/Vol] 9.8 mg/dL Normal 8.5-10.1 [facility] Comment on above: Performed By: #### C VDTBH #### [facility] [address] [place] [address] Dr. Latanya Donis Chloride [Moles/Vol] 103 mmol/L Normal 98-107 [facility] Comment on above: Performed By: #### C VDTBH #### [facility] [address] [place] [address] Dr. Latanya Donis CO2 [Moles/Vol] 30.4 mmol/L Normal 21.0-32.0 [facility] Comment on above: Performed By: #### C VDTBH #### [facility] [address] [address] [address] Latanya Donis Creatinine [Mass/Vol] 0.92 mg/dL Normal 0.55-1.02 [facility] Comment on above: Performed By: #### C VDTBH #### [facility] [address] [address] [address] Latanya Donis EGFR-AF GREEK >60 Normal >=60 [facility] Comment on above: Performed By: #### C VDTBH #### [facility] [address] [address] [address] Latanya Donis EGFR-NON AF GREEK >60 Normal >=60 [facility] Comment on above: Performed By: #### C VDTBH #### [facility] [address] [place] [address] Dr. Latanya Donis Glucose [Mass/Vol] 93 mg/dL Normal 74-106 [facility] Comment on above: Performed By: #### C VDTBH #### [facility] [address] [address] [address] Latanya Donis Potassium [Moles/Vol] 4.4 mmol/L Normal 3.5-5.1 [facility] Comment on above: Performed By: #### C VDTBH #### [facility] [address] [place] [address] Dr. Latanya Donis Sodium [Moles/Vol] 139 mmol/L Normal 136-145 [facility] Comment on above: Performed By: #### C VDTBH #### [facility] [address] [address] [address] Latanya Donis Urea nitrogen [Mass/Vol] 11.0 mg/dL Normal 7.0-18.0 [facility] Comment on above: Performed By: #### C VDTBH #### [facility] [address] [address] [address] Latanya Donis Urea nitrogen/Creatinine [Mass ratio] 12.0 mg/mg Normal [facility] Comment on above: Performed By: #### C VDTBH #### [facility] [address] [place], [place] [address] Dr. Latanya Donis TSHon 09-16-2021 TSH 1.496 uIU/mL Normal 0.358-3.740 [facility] Comment on above: Performed By: #### C VDTBH #### [facility] [address] [place], [place] [address] Dr. Latanya Donis COVID Quick Testingon 2020 Result Negative [employer] [facility] [employer] Other COVID Quick Testingon 2020 Result Negative [employer] [facility] [employer] Other Chlamydia/GC DNA, Uron 01-03 Chlamydia Probe, Ur Negative Normal NEG [facility] Comment on above: Result Comment: CHLA MYDIA [...] target. Performed By: #### U CGP #### [facility] [address] [place] [address] [phone] Warehouse Puller: Ezio Calvillo MD Gonorrhea Probe, Ur Negative Normal NEG [facility] Comment on above: Result Comment: NEIS SERIA [...] target. Performed By: #### U CGP #### [facility] [address] [place] [address] [phone] Warehouse Puller: Ezio Calvillo MD Cult,Urineon 01-04-2020 Cult,Urine Specimen Description .CLEAN CATCH URINE Special Requests NOT REPORTED Culture NO SIGNIFICANT GROWTH Report Status FINAL 01/04/2020 Normal [facility] Comment on above: Performed By: #### P PPVP #### [facility] [employer] [address] [place] [phone] Warehouse Puller: Ezio Calvillo MD Hemoglobin A1Con 01-04-2020 HbA1c (Bld) [Mass fraction] 4.8 % Normal 4.0-6.0 [facility] Comment on above: Performed By: #### A HCV, GLYHGB, HIVCMB #### [facility] [address] [place] [address] Warehouse Puller: Ezio Calvillo MD HbA1c (Bld) [Mass fraction] 91 mg/dL Normal [facility] Comment on above: Result Comment: The ADA and AACC recommend providing the estimated average glucose result to permit better patient understanding of their HBA1c result. Performed By: #### A HCV, GLYHGB, HIVCMB #### [facility] [address] [place] [address] Warehouse Puller: Ezio Calvillo MD HIV Ag/Abon 01-03-2020 HIV Ag/Ab NONREACTIVE Normal NR [facility] Comment on above: Result Comment: No l aboratory evidence of HIV infection. If acute HIV infection is suspected, consider testing for HIV-1 RNA. Performed By: #### A HCV, GLYHGB, HIVCMB #### [facility] [address] [place] [address] Warehouse Puller: Ezio Calvillo MD Hep C Abon 01-03-2020 Hep C Ab NONREACTIVE Normal NR [facility] Comment on above: Result Comment: The hepatitis [...] By: #### A HCV, GLYHGB, HIVCMB #### [facility] [address] [place] [address] Warehouse Puller: Ezio Calvillo MD Profileon 0 T.pallidum Ab Screen NONREACTIVE Normal [facility] Comment on above: Result Comment: T. pallidum antibodies are not detected. There is no serological evidence of infection with T. pallidum (early primary syphilis cannot be excluded). Retest in 2-4 weeks if syphilis is clinically suspect. Performed By: #### P RENAT #### [address] [address] Warehouse Puller: Ezio Calvillo MD [facility] [address] [place] [address] [place], [place] [phone] Warehouse Puller: Chase Glez MD Hep B Surf Ag NONREACTIVE Normal [facility] Comment on above: Performed By: #### P RENAT #### [address] [address] Warehouse Puller: Ezio Calvillo MD [address] [place] [facility], [place] [phone] Warehouse Puller: Chase Glez MD Rubella Ab, IgG 68.2 IU/mL [facility] Comment on above: Result Comment: REFERENCE RANGE: <5.0 NON-REACTIVE (non-immune) 5.0 TO 9.9 EQUIVOCAL >=10.0 REACTIVE (immune) Performed By: #### P RENAT #### [address] [address] Warehouse Puller: Ezio Calvillo MD [address] [place] [facility], [place] [phone] Warehouse Puller: Chase Glez MD HIV Screenon 01-02-2020 HIV Ag/Ab NONREACTIVE NONREACTIVE [place], [place] Comment on above: No laboratory eviden ce of HIV infection. If acute HIV infection is suspected, consider testing for HIV-1 RNA. Hepatitis C Antibodyon 01-01 Hepatitis C Ab NONREACTIVE NONREACTIVE [place], [place] Comment on above: The hepatitis C [...] Ion 020 Basophils (Bld) [#/Vol] 0.03 10*3/uL [place], [place] Basophils/100 WBC (Bld) 0 % 0 - 2 % [place] Differential Type NOT REPORTED [place] Eosinophils (Bld) [#/Vol] 0.12 10*3/uL [place] Eosinophils/100 WBC (Bld) 2 % 1 - 4 % [place] Erythrocyte distribution width (RBC) [Ratio] 12.4 % 11.8 - 14.4 % [place] Hematocrit (Bld) [Volume fraction] 41.5 % 36.3 - 47.1 % [place] Hemoglobin (Bld) [Mass/Vol] 13.5 g/dL 11.9 - 15.1 g/dL [place] Hepatitis B Surface Ag NONREACTIVE NONREACTIVE [place] Immature granulocytes (Bld) [#/Vol] 0 % 0 [place] Immature granulocytes (Bld) [#/Vol] 10*3/uL [place] Lymphocytes (Bld) [#/Vol] 2.14 10*3/uL [place] Lymphocytes/100 WBC (Bld) 28 % 24 - 43 % [place] MCH (RBC) [Entitic mass] 28.9 pg 25. 2 - 33.5 pg [place] MCHC (RBC) [Mass/Vol] 32.5 g/dL 28.4 - 34.8 g/dL [place] MCV (RBC) [Entitic vol] 88.9 fL 82.6 - 102.9 fL [place] Monocytes (Bld) [#/Vol] 0.63 10*3/uL [place] Monocytes/100 WBC (Bld) 8 % 3 - 12 % [place] Platelet mean volume (Bld) [Entitic vol] 12.3 fL 8.1 - 13.5 fL [place] Platelets (Bld) [#/Vol] NOT REPORTED [place] Platelets (Bld) [#/Vol] 213 10*3/uL [place] RBC (Bld) [#/Vol] 4.67 10*6/uL 3.95 - 5.1 1 m/uL [place] RBC morphology finding Nom (Bld) NOT REPORTED [place] Rubella virus IgG Ql (S) 68.2 IU/mL [place], [place] Comment on above: REFERENCE RANGE: <5.0 NON-REACTIVE (non-immune) 5.0 TO 9.9 EQUIVOCAL >=10.0 REACTIVE (immune) Segmented neutrophils/100 WBC (Bld) 62 % 36 - 65 % [place] Segs Absolute 4.69 [place], [place] T. pallidum, IgG NONREACTIVE NONREACTIVE [place], [place] Comment on above: T. pallidum antibodies are not detected. There is no serological evidence of infection with T. pallidum (early primary syphilis cannot be excluded). Retest in 2-4 weeks if syphilis is clinically suspect. WBC (Bld) [#/Vol] 7.6 10*3/uL [place] WBC (Bld) [#/Vol] 0.0 10*3/uL 0.0 per 10 0 WBC [place] WBC Morphology NOT REPORTED [place], [place] TYPE AND SCREENon 1 03-03-2019 ABO/Rh Negative [place], [place] Profileon 0 Abs. Basophil 0.03 k/uL Normal 0.00-0.20 [facility] Comment on above: Performed By: #### P RENAT #### [facility] [employer] [address] [place] [address] Warehouse Puller: Ezio Calvillo MD [facility] [address] [place] [address] Warehouse Puller: Chase Glez MD Abs.Imm.Granulocyte <0.03 Normal 0.00-0.30 [facility] Comment on above: Performed By: #### P RENAT #### [address] [address] Warehouse Puller: Ezio Calvillo MD [address] [place] [phone] Warehouse Puller: Chase Glez MD Abs.Neutrophil (Seg) 4.69 k/uL Normal 1.50-8.10 [facility] Comment on above: Performed By: #### P RENAT #### [address] [address] Warehouse Puller: Ezio Calvillo MD [address] [place] [phone] Warehouse Puller: Chase Glez MD Basophils/100 WBC (Bld) 0 % Normal 0-2 [facility] Comment on above: Performed By: #### P RENAT #### [address] [address] Warehouse Puller: Ezio Calvillo MD [address] [place] [address] Warehouse Puller: Chase Glez MD Eosinophils (Bld) [#/Vol] 0.12 10*3/uL Normal 0.00-0.44 [facility] Comment on above: Performed By: #### P RENAT #### [address] [address] Warehouse Puller: Ezio Calvillo MD [address] [place] [phone] Warehouse Puller: Chase Glez MD Eosinophils/100 WBC (Bld) 2 % Normal 1-4 [facility] Comment on above: Performed By: #### P RENAT #### [address] [address] Warehouse Puller: Ezio Calvillo MD [address] [place], [place] [phone] Warehouse Puller: Chase Glez MD Erythrocyte distribution width (RBC) [Ratio] 12.4 % Normal 11.8-14.4 [facility] Comment on above: Performed By: #### P RENAT #### [address] [place] [address] Warehouse Puller: Ezio Calvillo MD [address] [place] [phone] Warehouse Puller: Chase Glez MD Hematocrit (Bld) [Volume fraction] 41.5 % Normal 36.3-47.1 [facility] Comment on above: Performed By: #### P RENAT #### [address] [address] Warehouse Puller: Ezio Calvillo MD [address] [place] [address] Warehouse Puller: Chase Glez MD Hemoglobin (Bld) [Mass/Vol] 13.5 g/dL Normal 11.9-15.1 [facility] Comment on above: Performed By: #### P RENAT #### [address] [address] Warehouse Puller: Ezio Calvillo MD [address] [place] [address] Warehouse Puller: Chase Glez MD Immature granulocytes (Bld) [#/Vol] 0 % Normal 0 [facility] Comment on above: Performed By: #### P RENAT #### [address] [address] Warehouse Puller: Ezio Calvillo MD [address] [place] [phone] Warehouse Puller: Chase Glez MD Lymphocytes (Bld) [#/Vol] 2.14 10*3/uL Normal 1.10-3.70 [facility] Comment on above: Performed By: #### P RENAT #### [address] [address] Warehouse Puller: Ezio Calvillo MD [address] [place] [address] Warehouse Puller: Chase Glez MD Lymphocytes/100 WBC (Bld) 28 % Normal 24-43 [facility] Comment on above: Performed By: #### P RENAT #### [address] [address] Warehouse Puller: Ezio Calvillo MD [address] [place] [facility] Warehouse Puller: Chase Glez MD MCH (RBC) [Entitic mass] 28.9 pg Normal 25.2-33.5 [facility] Comment on above: Performed By: #### P RENAT #### [address] [address] Warehouse Puller: Ezio Calvillo MD [address] [place] [address] Warehouse Puller: Chase Glez MD MCHC (RBC) [Mass/Vol] 32.5 g/dL Normal 28.4-34.8 [facility] Comment on above: Performed By: #### P RENAT #### [address] [address] Warehouse Puller: Ezio Calvillo MD [address] [place] [facility] Warehouse Puller: Chase Glez MD MCV (RBC) [Entitic vol] 88.9 fL Normal 82.6-102.9 [facility] Comment on above: Performed By: #### P RENAT #### [address] [address] Warehouse Puller: Ezio Calvillo MD [address] [place] [facility] Warehouse Puller: Chase Glez MD Monocytes (Bld) [#/Vol] 0.63 10*3/uL Normal 0.10-1.20 [facility] Comment on above: Performed By: #### P RENAT #### [address] [address] Warehouse Puller: Ezio Calvillo MD [address] [place] [phone] Warehouse Puller: Chase Glez MD Monocytes/100 WBC (Bld) 8 % Normal 3-12 [facility] Comment on above: Performed By: #### P RENAT #### [address] [address] Warehouse Puller: Ezio Calvillo MD [address] [place] [address] Warehouse Puller: Chase Glez MD Neutrophil (Seg) 62 % Normal 36-65 [facility] Comment on above: Performed By: #### P RENAT #### [address] [address] Warehouse Puller: Ezio Calvillo MD [address] [place] [address] Warehouse Puller: Chase Glez MD NRBC Automated 0.0 per 100 WBC Normal 0.0 [facility] Comment on above: Performed By: #### P RENAT #### [address] [address] Warehouse Puller: Ezio Calvillo MD [facility] [address] [place] [address] [place] [address] Warehouse Puller: Chase Glez MD Platelet mean volume (Bld) [Entitic vol] 12.3 fL Normal 8.1-13.5 [facility] Comment on above: Performed By: #### P RENAT #### [address] [address] Warehouse Puller: Ezio Calvillo MD [address] [place] [phone] Warehouse Puller: Chase Glez MD Platelets (Bld) [#/Vol] 213 10*3/uL Normal 138-453 [facility] Comment on above: Performed By: #### P RENAT #### [address] [place] [address] Warehouse Puller: Ezio Calvillo MD [address] [place], [place] [phone] Warehouse Puller: Chase Glez MD RBC (Bld) [#/Vol] 4.67 10*6/uL Normal 3.95-5.11 [facility] Comment on above: Performed By: #### P RENAT #### [address] [address] Warehouse Puller: Ezio Calvillo MD [address] [place] [phone] Warehouse Puller: Chase Glez MD WBC (Bld) [#/Vol] 7.6 10*3/uL Normal 3.5-11.3 [facility] Comment on above: Performed By: #### P RENAT #### [address] [address] Warehouse Puller: Ezio Calvillo MD [address] [place] [address] Warehouse Puller: Chase Glez MD Auto Diff Performed NOT REPORTED Normal [facility] Comment on above: Performed By: #### P RENAT #### [address] [address] Warehouse Puller: Ezio Calvillo MD [address] [place], [place] [phone] Warehouse Puller: Chase Glez MD Platelets (Bld) [#/Vol] NOT REPORTED Normal [facility] Comment on above: Performed By: #### P RENAT #### [address] [place] [address] Warehouse Puller: Ezio Calvillo MD [facility] [address] [place] [address] Dr[address] [place], [place] [phone] Warehouse Puller: Chase Glez MD RBC morphology finding Nom (Bld) NOT REPORTED Normal [facility] Comment on above: Performed By: #### P RENAT #### [address] [address] Warehouse Puller: Ezio Calvillo MD [address] [place] [address] Warehouse Puller: Chase Glez MD WBC Morphology NOT REPORTED Normal [facility] Comment on above: Performed By: #### P RENAT #### [address] [address] Warehouse Puller: Ezio Calvillo MD [address] [place] [phone] Warehouse Puller: Chase Glez MD Type + Scrnon 01-01 Type + Scrn Negative [facility] Comment on above: Performed By: #### P RTYS #### [address] [place], [place] [phone] Warehouse Puller: Chase Glez MD Toxicology Scree, Urineon Amphetamine(s),Ur Negative Normal NEG [facility] Comment on above: Performed By: #### C PDAU #### [facility] [address] [place] [address] Dr[address] [place], [place] [phone] Warehouse Puller: Chase Glez MD Barbiturate(s),Ur Negative Normal NEG [facility] Comment on above: Performed By: #### C PDAU #### [facility] [address] [place] [address] Dr[address] [place], [place] [phone] Warehouse Puller: Chase Glez MD Benzodiazepine(s) Negative Normal NEG [facility] Comment on above: Performed By: #### C PDAU #### [facility] [address] [place] [address] Warehouse Puller: Chase Glez MD Buprenorphrine, Ur Negative Normal [facility] Comment on above: Performed By: #### C PDAU #### [facility] [address] [place] [address] Warehouse Puller: Chase Glez MD Cannabinoid(s),Ur Negative Normal NEG [facility] Comment on above: Performed By: #### C PDAU #### [facility] [address] [place] [address] Warehouse Puller: Chase Glez MD Cocaine Metabolite Negative Normal [facility] Comment on above: Performed By: #### C PDAU #### [facility] [address] [place], [place] [id number] Warehouse Puller: Chase Glez MD Methadone Ql (U) Negative Normal [facility] Comment on above: Performed By: #### C PDAU #### [address] [place] [address] Warehouse Puller: Chase Glez MD Methamphetamine, Ur Negative Normal [facility] Comment on above: Performed By: #### C PDAU #### [facility] [address] [place], [place] [id number] Warehouse Puller: Chase Glez MD Opiate(s), Ur Negative Normal [facility] Comment on above: Performed By: #### C PDAU #### [facility] [address] [place] [address] Warehouse Puller: Chase Glez MD Oxycodone, Urine Negative Normal NEG [facility] Comment on above: Performed By: #### C PDAU #### [facility] [address] [place] [address] Warehouse Puller: Chase Glez MD Phencyclidine, Ur Negative Normal NEG [facility] Comment on above: Performed By: #### C PDAU #### [facility] [address] [place] [address] Warehouse Puller: Chase Glez MD Propoxyphene,Urine Negative Normal NEG [facility] Comment on above: Performed By: #### C PDAU #### [facility] [address] [place] [address] Warehouse Puller: Chase Glez MD Tricyclic antidepressants Screen Ql (U) Negative Normal NEG [facility] Comment on above: Result Comment: Drug screen results are to be used for medical purposes only. All positive results are unconfirmed. Testing for employment or legal uses should be sent to a reference laboratory for confirmation. Performed By: #### C PDAU #### [facility] [address] [place], [place] [id number] Warehouse Puller: Chase Glez MD Interpretive Info NOT REPORTED Normal [facility] Comment on above: Performed By: #### C PDAU #### [facility] [address] [place] [address] [place] [address] Warehouse Puller: Chase Glez MD MDMA, Urine NOT REPORTED Normal NEG [facility] Comment on above: Performed By: #### C PDAU #### [facility] [address] [place] [address] Warehouse Puller: Chase Glez MD Urine Drug Screen, Chayo [email or web address] 01-02-2020 Amphetamine Screen, Ur Negative NEGATIVE Me [facility] Barbiturate Screen, Ur Negative NEGATIVE Me [facility] Benzodiazepine Screen, Urine Negative NEGATIVE [facility] Buprenorphine Urine Negative NEGATIVE [facility] [place] Cannabinoid Scrn, Ur Negative NEGATIVE [facility] Cocaine Metabolite, Urine Negative NEGATIVE [facility] [place] MDMA, Urine NOT REPORTED NEGATIVE [facility] [place] Methadone Screen, Urine Negative NEGATIVE [facility] [place] Methamphetamine, Urine Negative NEGATIVE [facility] [place] Opiates, Urine Negative NEGATIVE [facility]- [place] Oxycodone Screen, Ur Negative NEGATIVE [facility] Phencyclidine, Urine Negative NEGATIVE [facility] Propoxyphene, Urine Negative NEGATIVE [facility] [place] Test Information NOT REPORTED [facility] [place] Tricyclic Antidepressants, Urine Negative NEGATIVE [facility] [place] Comment on above: Drug screen results are to be used for medical purposes only. All positive results are unconfirmed. Testing for employment or legal uses should be sent to a reference laboratory for confirmation. Chlamydia/GC DNA, TPon 10-13 Chlamydia Probe, TP Negative Normal NEG [facility] Comment on above: Result Comment: CHLA MYDIA [...] target. Performed By: #### P PPVP #### [facility] [address] [place] [address] [id number] Warehouse Puller: Ezio Calvillo MD Gonorrhea Probe, TP Negative Normal NEG [facility] Comment on above: Result Comment: NEIS SERIA [...] target. Performed By: #### P PPVP #### [facility] [address] [place] [address] [phone] Warehouse Puller: Ezio Calvillo MD Cytologyon 10-11-2019 Cytology (NOTE) INTERPRETATION Cervical material, (ThinPrep vial, Imaging-assisted review): Specimen Adequacy: Satisfactory for evaluation. -Endocervical/miller sformation zone component is absent. Descriptive Diagnosis: Negative for intraepithelial lesion or malignancy. Shift in rebecca suggestive of bacterial vaginosis. 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 High Risk HPV DNA testing is requested if the diagnosis is ASC-US LMP: 09/17/2019 GYNECOLOGIC CYTOLOGY REPORT Patient Name: ROBLES YEN [facility] Rec: [id number] Path Number: [id number] [facility] CONSULTING PATHOLOGISTS [facility] ANATOMIC PATHOLOGY [address] [place] [phone] Normal [facility] Comment on above: Performed By: #### P PPVP #### [address] [id number] Warehouse Puller: Ezio Calvillo MD HCG, Quanton 02-06-2019 HCG, Quant <1 Normal <5 [facility] Comment on above: Result Comment: Non-preg premeno <=5 Postmeno <=8 Male <=3 If HCG results do not concur with clinical observations, additional testing to confirm results is recommended. Elevated results not associated with may be found in patients with other diseases such as tumors of the germ cells (testis, ovaries, etc.), bladder, pancreas, stomach, lungs, and liver. Performed By: #### B HCG #### [facility] [address] [place] [address] Warehouse Puller: Chase Glez MD hCG, Quantitative, Ordered By: Amaya Russo on 02-06-2019 hCG Quant <1 <5 IU/L [facility] Work Phone: Comment on above: Non-preg [...] 19 2 Hr 139 mg/dL Normal 65-139 [facility] Comment on above: Performed By: #### G LU2HR #### [facility] [address] [place] [address] Warehouse Puller: Chase Glez MD 1 Hr 143 mg/dL Normal 65-184 [facility] Comment on above: Performed By: #### G LU2HR #### [facility] [address] [place] [address] Warehouse Puller: Chase Glez MD Fasting 91 mg/dL Normal 65-99 [facility] Comment on above: Performed By: #### G LU2HR #### [facility] [address] [place] [address] Warehouse Puller: Chase Glez MD Glucose [Mass/Vol] 75 g Normal [facility] Comment on above: Performed By: #### G LU2HR #### [facility] [address] [place] [address] Warehouse Puller: Chase Glez MD Glucose Tolerance, 2 Hrson 1 03-10-2018 Glucose [Mass/Vol] 75 g [place] Glucose [Mass/Vol] 91 mg/dL 65 - 99 mg/dL [place] Glucose, GTT - 1 Hour 143 mg/dL 65 - 1 84 mg/dL [place] Glucose, GTT - 2 Hour 139 mg/dL 65 - 1 39 mg/dL [place] Glucose, Whole Bloodon 01-08 Glucose [Mass/Vol] 88 mg/dL 74 - 100 mg/dL [place] Glucose, Whole Bloodon 12-22 Glucose [Mass/Vol] 104 mg/dL High 74 - 100 mg/dL [place] Interpretation and review of laboratory results Abnormal [place] APTTon 12-21-2018 aPTT Coag (Bld) [Time] 25.3 s [place] CBC auto differentialon 11-23 Basophils (Bld) [#/Vol] 10*3/uL [place] Basophils/100 WBC (Bld) 0 % 0 - 2 % [place] Differential Type NOT REPORTED [place] Eosinophils (Bld) [#/Vol] 0.10 10*3/uL [place] Eosinophils/100 WBC (Bld) 1 % 1 - 4 % [place] Erythrocyte distribution width (RBC) [Ratio] 14.2 % 11.8 - 14.4 % [place] Hematocrit (Bld) [Volume fraction] 29.5 % Low 36.3 - 47.1 % [place] Hemoglobin (Bld) [Mass/Vol] 9.8 g/dL Low 11.9 - 15.1 g/dL [place] Immature granulocytes (Bld) [#/Vol] 1 % High 0 [place] Immature granulocytes (Bld) [#/Vol] 0.10 10*3/uL [place] Interpretation and review of laboratory results Abnormal [place] Lymphocytes (Bld) [#/Vol] 1.31 10*3/uL [place] Lymphocytes/100 WBC (Bld) 18 % Low 24 - 43 % [place] MCH (RBC) [Entitic mass] 29.8 pg 25. 2 - 33.5 pg [place] MCHC (RBC) [Mass/Vol] 33.2 g/dL 28.4 - 34.8 g/dL [place] MCV (RBC) [Entitic vol] 89.7 fL 82.6 - 102.9 fL [place] Monocytes (Bld) [#/Vol] 0.73 10*3/uL [place] Monocytes/100 WBC (Bld) 10 % 3 - 12 % [place] Platelet mean volume (Bld) [Entitic vol] 11.4 fL 8.1 - 13.5 fL [place] Platelets (Bld) [#/Vol] NOT REPORTED [place] Platelets (Bld) [#/Vol] 148 10*3/uL [place] RBC (Bld) [#/Vol] 3.29 10*6/uL Low 3.95 - 5.1 1 m/uL [place] RBC morphology finding Nom (Bld) NOT REPORTED [place] Segmented neutrophils/100 WBC (Bld) 70 % High 36 - 65 % [place] Segs Absolute 5.17 [place] WBC (Bld) [#/Vol] 7.4 10*3/uL [place] WBC (Bld) [#/Vol] 0.0 10*3/uL 0.0 per 10 0 WBC [place] WBC Morphology NOT REPORTED [place] Comprehensive metabolic pane susie 12-21-2018 Albumin [Mass/Vol] 3.1 g/dL Low 3.5 - 5.2 g/dL [place] Albumin/Globulin [Mass ratio] 1.0 {ratio} [place] ALP [Catalytic activity/Vol] 124 U/L High 35 - 104 U/L [place] ALT [Catalytic activity/Vol] 7 U/L 5 - 33 U/L [place] Anion gap [Moles/Vol] 13 mmol/L 9 - 17 mmol/L [place] AST [Catalytic activity/Vol] 14 U/L <32 [place] Bilirubin Ql (U) 0.36 mg/dL 0.3 - 1.2 mg/dL [place] Bun/Cre Ratio 10 [place] Calcium [Mass/Vol] 9.3 mg/dL 8.6 - 10. 4 mg/dL [place] Chloride [Moles/Vol] 103 mmol/L 98 - 10 7 mmol/L [place] CO2 [Moles/Vol] 19 mmol/L Low 20 - 31 mmol/L [place] Creatinine [Mass/Vol] 0.84 mg/dL 0.5 - 0.9 mg/dL [place] GFR >60 >60 mL/min [place] GFR Non- >60 >60 mL/min [place] Glucose [Mass/Vol] 77 mg/dL 70 - 99 mg/dL [place] Potassium [Moles/Vol] 3.8 mmol/L 3.7 - 5.3 mmol/L [place] Protein [Mass/Vol] 6.3 g/dL Low 6.4 - 8.3 g/dL [place] Sodium [Moles/Vol] 135 mmol/L 135 - 144 mmol/L [place] Urea nitrogen [Mass/Vol] 8 mg/dL 6 - 20 mg/d L [place] DRUG SCREEN MULTI URINEon Amphetamine Screen, Ur Negative NEGATIVE [place] Barbiturate Screen, Ur Negative NEGATIVE [place] Benzodiazepine Screen, Urine Negative NEGATIVE [place] Buprenorphine Urine Negative NEGATIVE [place] Cannabinoid Scrn, Ur Negative NEGATIVE [place] Cocaine Metabolite, Urine Negative NEGATIVE [place] MDMA, Urine NOT REPORTED NEGATIVE [place] Methadone Screen, Urine Negative NEGATIVE [place] Methamphetamine, Urine Negative NEGATIVE [place] Opiates, Urine Negative NEGATIVE [place] Oxycodone Screen, Ur Negative NEGATIVE [place] Phencyclidine, Urine Negative NEGATIVE [place] Propoxyphene, Urine Negative NEGATIVE [place] Test Information NOT REPORTED [place] Tricyclic Antidepressants, Urine Negative NEGATIVE [facility] [place] [place] Comment on above: Drug screen results are to be used for medical purposes only. All positive results are unconfirmed. Testing for employment or legal uses should be sent to a reference laboratory for confirmation. Fibrinogenon 12-21-2018 Fibrinogen 481 mg/dL High 185 - 451 mg/dL [place] Interpretation and review of laboratory results Abnormal [place] Lactate Dehydrogenaseon 11-23 LD 201 U/L 135 - 214 U/L [place] Metabolic Panelon 12-21-2018 GFR/1.73 sq M predicted among non-blacks MDRD (S/P/Bld) [Vol rate/Area] [place] Comment on above: Average GFR for 30-3 9 years old: 107 mL/min/1.73sq m Chronic Kidney Disease: <60 mL/min/1.73sq m Kidney failure: <15 mL/min/1.73sq m eGFR calculated using average adult body mass. Additional eGFR calculator available at: http://www.Pharnext/multiple_crcl_2012.htm Stage 1: Some kidney damage normal GFR Stage 2: Mild kidney damage GFR 60-89 Stage 3: Moderate kidney damage GFR 30-59 Stage 4: Severe kidney damage GFR 15-29 Stage 5: Severe kidney damage GFR <15 ESRD - chronic treatment by dialysis or transplant Otheron 12-21-2018 Interpretation and review of laboratory results Abnormal [place] Protime-INRon 12-21-2018 INR Coag (PPP) [Relative time] 1.0 {INR} [place] PT Coag (PPP) [Time] 9.8 s [place] Uric acidon 12-21-2018 Urate [Mass/Vol] 6.8 mg/dL High 2.4 - 5.7 mg/dL [place] APTTon 12-04-2018 aPTT Coag (Bld) [Time] 23.4 [place] CBC Auto Differentialon 11-21 Basophils (Bld) [#/Vol] 0.03 10*3/uL [place] Basophils/100 WBC (Bld) 0 % 0 - 2 % [place] Differential Type NOT REPORTED [place] Eosinophils (Bld) [#/Vol] 0.12 10*3/uL [place] Eosinophils/100 WBC (Bld) 1 % 1 - 4 % [place] Erythrocyte distribution width (RBC) [Ratio] 14.3 % 11.8 - 14.4 % [place] Hematocrit (Bld) [Volume fraction] 30.2 % Low 36.3 - 47.1 % [place] Hemoglobin (Bld) [Mass/Vol] 10.3 g/dL Low 11.9 - 15.1 g/dL [place] Immature granulocytes (Bld) [#/Vol] 2 % High 0 [place] Immature granulocytes (Bld) [#/Vol] 0.22 10*3/uL [place] Interpretation and review of laboratory results Abnormal [place] Lymphocytes (Bld) [#/Vol] 1.19 10*3/uL [place] Lymphocytes/100 WBC (Bld) 13 % Low 24 - 43 % [place] MCH (RBC) [Entitic mass] 30.4 pg 25. 2 - 33.5 pg [place] MCHC (RBC) [Mass/Vol] 34.1 g/dL 28.4 - 34.8 g/dL [place] MCV (RBC) [Entitic vol] 89.1 fL 82.6 - 102.9 fL [place] Monocytes (Bld) [#/Vol] 0.74 10*3/uL [place] Monocytes/100 WBC (Bld) 8 % 3 - 12 % [place] Platelet mean volume (Bld) [Entitic vol] NOT REPORTED 8.1 - 13.5 fL [place] Platelets (Bld) [#/Vol] NOT REPORTED [place] Platelets (Bld) [#/Vol] See Reflexed IPF Result [place] RBC (Bld) [#/Vol] 3.39 10*6/uL Low 3.95 - 5.1 1 m/uL [place] RBC morphology finding Nom (Bld) NOT REPORTED [place] Segmented neutrophils/100 WBC (Bld) 75 % High 36 - 65 % [place] Segs Absolute 6.71 [place] WBC (Bld) [#/Vol] 0.0 10*3/uL 0.0 per 10 0 WBC [place] WBC (Bld) [#/Vol] 9.0 10*3/uL [place] WBC Morphology NOT REPORTED [place] Comprehensive Metabolic Pane susie 12-04-2018 Albumin [Mass/Vol] 3.2 g/dL Low 3.5 - 5.2 g/dL [place] Albumin/Globulin [Mass ratio] 1.0 {ratio} [place] ALP [Catalytic activity/Vol] 106 U/L High 35 - 104 U/L [place] ALT [Catalytic activity/Vol] 7 U/L 5 - 33 U/L [place] Anion gap [Moles/Vol] 13 mmol/L 9 - 17 mmol/L [place] AST [Catalytic activity/Vol] 11 U/L <32 [place] Bilirubin Ql (U) 0.25 mg/dL Low 0.3 - 1.2 mg/dL [place] Bun/Cre Ratio 7 Low [place] Calcium [Mass/Vol] 9.8 mg/dL 8.6 - 10. 4 mg/dL [place] Chloride [Moles/Vol] 103 mmol/L 98 - 10 7 mmol/L [place] CO2 [Moles/Vol] 19 mmol/L Low 20 - 31 mmol/L [place] Creatinine [Mass/Vol] 0.89 mg/dL 0.5 - 0.9 mg/dL [place] GFR >60 >60 mL/min [place] GFR Non- >60 >60 mL/min [place] Glucose [Mass/Vol] 103 mg/dL High 70 - 99 mg/dL [place] Interpretation and review of laboratory results Abnormal [place] Potassium [Moles/Vol] 3.5 mmol/L Low 3.7 - 5.3 mmol/L [place] Protein [Mass/Vol] 6.5 g/dL 6.4 - 8.3 g/dL [place] Sodium [Moles/Vol] 135 mmol/L 135 - 144 mmol/L [place] Urea nitrogen [Mass/Vol] 6 mg/dL 6 - 20 mg/d L [place] Fibrinogenon 12-04-2018 Fibrinogen 498 mg/dL High 185 - 451 mg/dL [place] Immature Platelet Fractionon 12-04-2018 Interpretation and review of laboratory results Abnormal [place] Platelet, Fluorescence 137 Low Me [place], [place] Platelet, Immature Fraction 10.3 % 1.1 - 10.3 % [place] Lactate Dehydrogenaseon 11-21 LD 199 U/L 135 - 214 U/L [place] Metabolic Panelon 12-04-2018 GFR/1.73 sq M predicted among non-blacks MDRD (S/P/Bld) [Vol rate/Area] [place], [place] Comment on above: Stage 1: Some [...] body mass. Additional eGFR calculator available at: http://www.Pharnext/multiple_crcl_2012.htm Microscopic Urinalysison Amorphous, UA NOT REPORTED None [place] Bacteria, UA TRACE Abnormal None [place] Casts UA NOT REPORTED /LPF [place] Crystals UA NOT REPORTED None /HPF [place] Epithelial Cells UA 5 TO 10 [place] Interpretation and review of laboratory results Abnormal [place] Mucus, UA TRACE Abnormal None [place] Other Observations UA NOT REPORTED NOT REQ. [place] RBC (U) [#/Vol] None [place] Renal Epithelial, Urine NOT REPORTED 0 /HPF [place] Trichomonas, UA NOT REPORTED None [facility] [place] WBC, UA 5 TO 10 [place] Yeast, UA NOT REPORTED None [place], [place] - [place] Otheron 12-04-2018 Interpretation and review of laboratory results Abnormal [place] Protein / creatinine ratio, urineon 12-04-2018 Creatinine, Ur 93.6 mg/dL 28 - 217 mg/dL [place] Protein (U) [Mass/Vol] 14 mg/dL [place] Comment on above: No normal range esta blished. Urine Total Protein Creatinine Ratio 0.15 [place] Protime-INRon 12-04-2018 INR Coag (PPP) [Relative time] 0.9 {INR} [place] PT Coag (PPP) [Time] 9.4 s Low [place] Uric Acidon 12-04-2018 Urate [Mass/Vol] 5.7 mg/dL 2.4 - 5.7 mg/dL [place] Urinalysison 12-04-2018 Bilirubin Urine Negative NEGATIVE [place] Color, UA YELLOW YELLOW [place], [place] Glucose, Ur Negative NEGATIVE [place] Interpretation and review of laboratory results Abnormal [place] Ketones Ql (U) Negative NEGATIVE [place] Leukocyte esterase Test strip Ql (U) MODERATE Abnormal NEGATIVE [place] Nitrite, Urine Negative NEGATIVE [place] pH, UA 7.5 [place] Protein (U) [Mass/Vol] Negative NEGATIVE [place] Specific Collins, UA 1.010 [place], [place] Turbidity UA SLIGHTLY CLOUDY Abnormal [place] Urinalysis Comments NOT REPORTED [place] Urine Hgb Negative NEGATIVE [place] Urobilinogen, Urine Normal Normal [place] Glucose tolerance, 1 houron 10-16-2018 GLU ADMN Glucola [place], [place] Glucose tolerance screen 50g 194 mg/dL High 70 - 135 mg/dL [place] Interpretation and review of laboratory results Abnormal [place] Hemoglobinon 10-16-2018 Hemoglobin (Bld) [Mass/Vol] 10.8 g/dL Low 11.9 - 15.1 g/dL [place] Interpretation and review of laboratory results Abnormal [place] Vital Signs Date Time Vital Sign Value Performing Clinician Facility 04-10-2024 09:07-0500 Body height 160 cm Kika Beebebandar [employer]PER[employer] Work Phone: [facility] 04-10-2024 09:07-0500 Body mass index (BMI) [Ratio] 35.11 kg/m2 Kika Beebebandar [employer]PER[employer] Work Phone: [facility] 04-10-2024 09:07-0500 Body temperature 98.1 [degF] Kika Deniz [employer]PER[employer] Work Phone: [facility] 04-10-2024 09:07-0500 Body weight 89.9 kg Kika Deniz [employer]PER[employer] Work Phone: [facility] 04-10-2024 09:07-0500 Diastolic blood pressure 90 mm[Hg] Kika Beebebandar [employer] SUPER[employer] Work Phone: [facility] 04-10-2024 09:07-0500 Heart rate 71 /min Kika Denzi [employer] SUPER[employer] Work Phone: [facility] 04-10-2024 09:07-0500 Respiratory rate 18 /min Kika Deniz [employer]PER[employer] Work Phone: [facility] 04-10-2024 09:07-0500 SaO2% (BldA) [Mass fraction] 97 % Kika Beebebandar [employer] SUPER[employer] Work Phone: [facility] 04-10-2024 09:07-0500 Systolic blood pressure 120 mm[Hg] Kika Deniz [employer] SUPER[employer] Work Phone: [facility] 2024 10:10-0500 Body height 160 cm Kika Deniz [employer] SUPER[employer] Work Phone: [facility] 2024 10:10-0500 Body mass index (BMI) [Ratio] 35.61 kg/m2 Kika Landenholz [employer]PER[employer] Work Phone: [facility] 2024 10:10-0500 Body temperature 98.8 [degF] Kika Concepciónhholz [employer] SUPERVISOR Work Phone: [facility] 2024 10:10-0500 Body weight 91.17 kg Kika Concepciónhholz [employer]EM[employer] SUPERVISOR Work Phone: [facility] 2024 10:10-0500 Diastolic blood pressure 88 mm[Hg] Kika Concepciónhholz [employer] SUPERVISOR Work Phone: [facility] 2024 10:10-0500 Heart rate 89 /min Kika Aichholz [employer] SUPERVISOR Work Phone: [facility] 2024 10:10-0500 Respiratory rate 18 /min Kika Aichholz [employer] SUPER[employer]OR Work Phone: [facility] 2024 10:10-0500 SaO2% (BldA) [Mass fraction] 97 % Kika Concepciónhholz [employer] SUPERVISOR Work Phone: [facility] 2024 10:10-0500 Systolic blood pressure 116 mm[Hg] Kika Concepciónhholz [employer] SUPERVISOR Work Phone: [facility] 11-09-2023 13:49-0400 Body height 160 cm Kika Concepciónhholz [employer] SUPER[employer]OR Work Phone: [facility] 11-09-2023 13:49-0400 Body mass index (BMI) [Ratio] 34.76 kg/m2 Kika Concepciónhholz [employer]PER[employer] Work Phone: [facility] 11-09-2023 13:49-0400 Body temperature 98.49 [degF] Kika Concepciónhholz [employer] SUPER[employer] Work Phone: [facility] 11-09-2023 13:49-0400 Body weight 89 kg Kika Aichholz [employer]PER[employer] Work Phone: [facility] 11-09-2023 13:49-0400 Diastolic blood pressure 80 mm[Hg] Kika Aichholz [employer] SUPER[employer]OR Work Phone: [facility] 11-09-2023 13:49-0400 Heart rate 97 /min Kika Aichholz [employer]PER[employer] Work Phone: [facility] 11-09-2023 13:49-0400 Respiratory rate 18 /min Kika Aichholz [employer] SUPER[employer] Work Phone: [facility] 11-09-2023 13:49-0400 SaO2% (BldA) [Mass fraction] 97 % Kika Aichholz [employer] SUPERVISOR Work Phone: [facility] 11-09-2023 13:49-0400 Systolic blood pressure 100 mm[Hg] Kika Aichholz [employer] SUPERVISOR Work Phone: [facility] 06-16-2023 16:27-0400 Body height 160.02 cm Kika Aichholz Work Phone: [facility] 06-16-2023 16:27-0400 Body mass index (BMI) [Ratio] 35 kg/m2 Kika Aichholz Work Phone: [facility] 06-16-2023 16:27-0400 Body temperature 97.2 [degF] Kika Aichholz Work Phone: [facility] 06-16-2023 16:27-0400 Body temperature 98.7 [degF] Kika Aichholz Work Phone: [facility] 06-16-2023 16:27-0400 Body weight 89.81 kg Kika Aichholz Work Phone: [facility] 06-16-2023 16:27-0400 Diastolic blood pressure 80 mm[Hg] Kika Aichholz Work Phone: [facility] 06-16-2023 16:27-0400 Heart rate 101 /min Kika Aichholz Work Phone: [facility] 06-16-2023 16:27-0400 Respiratory rate 16 /min Kika Guaman Work Phone: [facility] 06-16-2023 16:27-0400 SaO2% (BldA) [Mass fraction] 95 % Kika Guaman Work Phone: [facility] 06-16-2023 16:27-0400 Systolic blood pressure 124 mm[Hg] Kika Guaman Work Phone: [facility] 05-05-2023 15:55-0400 Body height 160.02 cm [facility] 05-05-2023 15:55-0400 Body mass index (BMI) [Ratio] 34.5 kg/m2 [facility] 05-05-2023 15:55-0400 Body temperature 97.1 [degF] [facility] 05-05-2023 15:55-0400 Body weight 88.45 kg [facility] 05-05-2023 15:55-0400 Heart rate 101 /min [facility] 05-05-2023 15:55-0400 Respiratory rate 18 /min [facility] 05-05-2023 15:55-0400 SaO2% (BldA) [Mass fraction] 98 % [facility] 04-07-2023 16:19-0500 Body height 160.02 cm [facility] [place] 04-07-2023 16:19-0500 Body mass index (BMI) [Ratio] 34.2 kg/m2 [facility] 04-07-2023 16:19-0500 Body temperature 98 [degF] [facility] 04-07-2023 16:19-0500 Body weight 87.54 kg [facility] 04-07-2023 16:19-0500 Diastolic blood pressure 87 mm[Hg] [facility] 04-07-2023 16:19-0500 Heart rate 124 /min [facility] 04-07-2023 16:19-0500 Respiratory rate 18 /min [facility] 02-15-2024 16:19-0500 SaO2% (BldA) [Mass fraction] 98 % [facility] 04-07-2023 16:19-0500 Systolic blood pressure 126 mm[Hg] [facility] 05-26-2021 16:00-0400 Body height 160.02 cm Barbara Zhu Other [employer] Other 05-26-2021 16:00-0400 Body mass index (BMI) [Ratio] 32.59 kg/m2 Barbara Zhu Other [employer] Other 05-26-2021 16:00-0400 Body temperature 97.8 [degF] Barbara Zhu Other [employer] Other 05-26-2021 16:00-0400 Body weight 83.46 kg Barbara Zhu Other [employer] Other 05-26-2021 16:00-0400 SaO2% (BldA) [Mass fraction] 97 % Barbara Zhu Other [employer] Other 12-10-2020 16:15-0400 Body height 160.02 cm Katiuska Georgia Other [employer] Other 12-10-2020 16:15-0400 Body mass index (BMI) [Ratio] 31.88 kg/m2 Katiuska Georgia Other [employer] Other 12-10-2020 16:15-0400 Body temperature 98.2 [degF] Katiuska Georgia Other [employer] Other 12-10-2020 16:15-0400 Body weight 81.65 kg Katiuska Ho Other [employer] Other 12-10-2020 16:15-0400 Respiratory rate 18 /min Katiuska Ho Other [employer] Other 12-10-2020 16:15-0400 SaO2% (BldA) [Mass fraction] 97 % Katiuska Ho Other [employer] Other 12-23-2018 08:46-0400 Body Temperature 97.59 [degF] [facility] [place] 12-23-2018 08:46-0400 BP Diastolic 77 mm[Hg] [facility] , [place] 12-23-2018 08:46-0400 BP Systolic 120 mm[Hg] [facility] , [place] 12-23-2018 08:46-0400 Pulse (Heart Rate) 81 /min [facility], [place] 12-23-2018 08:46-0400 Respiratory Rate 20 /min [facility] [place] 12-22-2018 02:11-0400 Pulse Oximetry 98 % [facility] , [place] 12-21-2018 15:35-0400 BMI (Body Mass Index) 37.91 kg/m2 [facility] 12-21-2018 15:35-0400 Body weight 97.07 kg [facility] , [place] 12-21-2018 15:35-0400 Height 160 cm [facility] , [place] 12-06-2018 00:01-0400 Body Temperature 97.9 [degF] [employer] , [place] 12-06-2018 00:01-0400 BP Diastolic 74 mm[Hg] Freya Fischer [facility] , [place] 12-06-2018 00:01-0400 BP Systolic 121 mm[Hg] Freya Fischer [facility] , [place] 12-06-2018 00:01-0400 Pulse (Heart Rate) 105 /min [facility], [place] 12-06-2018 00:01-0400 Respiratory Rate 18 /min [facility] [place] 12-05-2018 23:44-0400 BMI (Body Mass Index) 37.2 kg/m2 Freya Fischer [facility], [place] 12-05-2018 23:44-0400 Body weight 95.25 kg Freya Fischer [facility] , [place] 12-05-2018 23:44-0400 Height 160 cm Freya Fischer [facility] , [place] 12-04-2018 11:48-0400 BP Diastolic 81 mm[Hg] [facility] , [place] 12-04-2018 11:48-0400 BP Systolic 120 mm[Hg] [facility] , [place] 12-04-2018 11:48-0400 Pulse (Heart Rate) 95 /min [facility] 12-04-2018 11:15-0400 Body Temperature 97.81 [degF] [place], [place] 12-04-2018 11:15-0400 Respiratory Rate 18 /min [facility], [place] 10-17-2018 16:30-0400 Body Temperature 97.9 [degF] [address], [place] 10-17-2018 16:30-0400 BP Diastolic 84 mm[Hg] [address] 10-17-2018 16:30-0400 BP Systolic 128 mm[Hg] [address] 10-17-2018 16:30-0400 Pulse (Heart Rate) 86 /min [address] 10-17-2018 16:30-0400 Respiratory Rate 20 /min [address] Encounters Encounter Date Encounter Type Care Provider Facility Start: 04-16-2024 End: 04-16-2024 Clinisync Result Encounter Kika Guaman NP Work Phone: [facility] Unsolicited Start: 04-16-2024 End: 04-16-2024 Clinisync Result Encounter Kika Guaman NP Work Phone: [facility] External [facility] Unsolicited Start: 04-16-2024 End: 04-16-2024 Orders Only Kika Guaman STONEMASON SUPERVISOR Work Phone: [facility] Comment on above: Migraine without aur a and without status migrainosus, not intractable (CMS/HCC) (Primary Dx) Start: 04-10-2024 End: 04-10-2024 Bamboo flowsheet Kika Guaman STONEMASON SUPERVISOR Work Phone: [facility] Start: 04-10-2024 End: 04-10-2024 Bamboo flowsheet Kikarafael Guaman STONEMASON SUPERVISOR Work Phone: [facility] Start: 04-10-2024 End: 04-10-2024 Office outpatient visit 25 minutes Kika Guaman STONEMASON SUPERVISOR Work Phone: [facility] Comment on above: Acute non-recurrent maxillary sinusitis (Primary Dx); Morbid (severe) obesity due to excess calories (CMS/HCC); Migraine without aura and without status migrainosus, not intractable (CMS/HCC); BMI 35.0-35.9,adult Start: 04-10-2024 End: 04-10-2024 ambulatory KIKA DENIZ Not Available Start: 03-20-2024 End: 03-20-2024 Telephone encounter Kika Guaman STONEMASON SUPERVISOR Work Phone: [facility] Start: 03-19-2024 End: 03-20-2024 Refill Kika Guaman STONEMASON SUPERVISOR Work Phone: [facility] Comment on above: Herpesviral infectio n, unspecified; Dysmenorrhea Start: 2024 End: 2024 Bamboo flowsheet Kika Guaman STONEMASON SUPERVISOR Work Phone: [facility] Start: 2024 End: 2024 Bamboo flowsheet Kikarafael Guaman STONEMASON SUPERVISOR Work Phone: [facility] Start: 2024 End: 2024 Office outpatient visit 25 minutes Kika Guaman STONEMASON SUPERVISOR Work Phone: [facility] Comment on above: Migraine without aur a and without status migrainosus, not intractable (CMS/HCC) (Primary Dx); Major depressive disorder, single episode, moderate (HCC) (CMS/HCC); Morbid (severe) obesity due to excess calories (CMS/HCC); Moderate anxiety Start: 2024 End: 2024 ambulatory KIKA CONCEPCIÓNHHOLZ Not Available Start: 02-04-2024 End: 02-04-2024 Emergency department patient visit KIKA GUAMAN [facility] Start: 01-21-2024 End: 01-21-2024 Refill Kika Elviraz STONEMASON SUPERVISOR Work Phone: [facility] Comment on above: Acute cough (Primary Dx) Start: 11-10-2023 End: 12-08-2023 Refill Kika Aicfannyholz STONEMASON SUPERVISOR Work Phone: [facility] Comment on above: Osteoarthritis of kn ee, unspecified; Body mass index (BMI) 36.0-36.9, adult Start: 11-09-2023 End: 11-09-2023 Bamboo flowsheet Kika Deniz STONEMASON SUPERVISOR Work Phone: [facility] Start: 11-09-2023 End: 11-09-2023 Bamboo flowsheet Kika Concepciónhholz STONEMASON SUPERVISOR Work Phone: [facility] Start: 11-09-2023 End: 11-09-2023 Refill Kika Aichholz STONEMASON SUPERVISOR Work Phone: [facility] Comment on above: Dysmenorrhea Start: 11-09-2023 End: 11-09-2023 ambulatory KIKA AICHHOLZ Not Available Start: 11-09-2023 End: 11-09-2023 Office outpatient visit 15 minutes Kika Guaman STONEMASON SUPERVISOR Work Phone: [facility] Comment on above: Moderate anxiety (Pr imary Dx); Dysmenorrhea; Morbid (severe) obesity due to excess calories (CMS/HCC); Moderate major depression (CMS/HCC) Start: 09-28-2023 End: 09-28-2023 ambulatory KIKA AICHHOLZ Not Available Start: 08-23-2023 End: 08-23-2023 ambulatory KIKA AICHHOLZ Not Available Start: 08-11-2023 End: 08-11-2023 ambulatory LEANN ALVESALL Not Available Start: 08-09-2023 End: 08-09-2023 ambulatory LINK DAYDAY Not Available Start: 08-05-2023 End: 08-05-2023 ambulatory MILAN GIORDANO Not Available Start: 08-02-2023 End: 08-02-2023 ambulatory LINK DAYDAY Not Available Start: 07-28-2023 End: 07-28-2023 ambulatory LEANN RODASTERSALL Not Available Start: 07-26-2023 End: 07-26-2023 ambulatory LINK DAYDAY Not Available Start: 07-19-2023 End: 07-19-2023 ambulatory MILAN GIORDANO Not Available Start: 07-12-2023 End: 07-12-2023 ambulatory KIKA AICHHOLZ Not Available Start: 06-23-2023 End: 06-23-2023 ambulatory KIKA AICHHOLZ Not Available Start: 06-16-2023 End: 06-16-2023 ambulatory Barbara Zhu Facility:[facility] Start: 06-16-2023 End: 06-16-2023 ambulatory Kika J Aichholz Work Phone: [facility] Work Phone: Start: 06-16-2023 End: 06-16-2023 Patient encounter procedure Kika Aichholz Work Phone: [facility] Work Phone: Start: 05-05-2023 End: 05-05-2023 ambulatory [facility] Work Phone: Start: 05-05-2023 End: 05-05-2023 Patient encounter procedure [facility] Work Phone: Start: 04-07-2023 End: 04-07-2023 ambulatory [facility] Work Phone: Start: 04-07-2023 End: 04-07-2023 Patient encounter procedure [facility] Work Phone: Start: 03-23-2023 Clinisync Result Encounter Kikarafael Felixz STONEMASON SUPERVISOR Work Phone: [facility] External [facility] Unsolicited Start: 03-23-2023 Clinisync Result Encounter Kikarafael Schusterholz STONEMASON SUPERVISOR Work Phone: [facility] External [facility] Unsolicited Start: 03-23-2023 Patient encounter procedure Kika Felixz STONEMASON SUPERVISOR Work Phone: [facility] Start: 06-01-2022 End: 06-02-2022 ambulatory RN CLINICAL QUALITY KIKA AICHHOLZ Facility:[facility] Start: 04-04-2022 End: 04-04-2022 ambulatory RN CLINICAL QUALITY KIKA AICHHOLZ Facility:[facility] Start: 12-22-2021 End: 12-23-2021 ambulatory RN CLINICAL QUALITY KIKA AICHHOLZ Facility:[facility] Start: 10-09-2021 End: 10-09-2021 ambulatory RN CLINICAL QUALITY KIKA AICHHOLZ Facility:[facility] Start: 10-08-2021 End: 10-09-2021 ambulatory RN CLINICAL QUALITY KIKA AICHHOLZ Facility:[facility] Start: 09-28-2021 End: 09-28-2021 ambulatory RN CLINICAL QUALITY KIKA AICHHOLZ Facility:[facility] Start: 09-16-2021 End: 09-17-2021 ambulatory RN CLINICAL QUALITY KIKA AICHHOLZ Facility:[facility] Start: 05-26-2021 End: 05-26-2021 ambulatory Barbara Zhu Other [employer] Other Start: 05-26-2021 Office outpatient vi sit 25 minutes Barbara Zhu [facility] Start: 01-14-2021 End: 01-14-2021 ambulatory Katiuska Ho Other [employer] Other Start: 01-14-2021 Office outpatient vi sit 5 minutes Katiuska Ho [facility] Start: 12-10-2020 Office outpatient vi sit 15 minutes Katiuska Ho [facility] Start: 01-02-2020 End: 01-03-2020 Patient encounter procedure [facility] Start: 01-02-2020 End: 01-02-2020 Subsequent hospital visit by physician Kika Guaman [facility] Laboratory Comment on above: Amenorrhea; Positive urine test; Encounter for supervision of other normal in first trimester Start: 10-11-2019 End: 10-12-2019 Patient encounter procedure [facility] Start: 10-11-2019 End: 10-11-2019 Subsequent hospital visit by physician Kika Guaman [facility] Laboratory Comment on above: Screen for STD (sexu ally transmitted disease); Encounter for well woman exam with routine gynecological exam Start: 02-06-2019 End: 02-07-2019 Patient encounter procedure [facility] Start: 02-06-2019 End: 02-06-2019 Subsequent hospital visit by physician Kika Guaman Work Phone: [facility] Laboratory Comment on above: Irregular menses; Possible , not yet confirmed Start: 01-08-2019 End: 01-09-2019 Patient encounter procedure [facility] Start: 01-08-2019 End: 01-08-2019 Subsequent hospital visit by physician Flaquita Lab Drawing Room [facility] Laboratory Comment on above: Gestational diabetes mellitus (GDM), Start: 12-21-2018 End: 12-23-2018 Evaluation and management of inpatient Amaya Russo Work Phone: [facility] Labor and Delivery Start: 12-13-2018 End: 12-13-2018 Subsequent hospital visit by physician Kika Guaman [facility] Laboratory Comment on above: 35 weeks gestation o f Start: 12-05-2018 End: 12-06-2018 Subsequent hospital visit by physician Freya Fischer Work Phone: [facility] Labor and Delivery Start: 12-04-2018 End: 12-04-2018 Subsequent hospital visit by physician Amaya Russo Work Phone: [facility] Labor and Delivery Start: 10-25-2018 End: 10-25-2018 Subsequent hospital visit by physician Flaquita Diabetes Education Room [facility] Diabetic Education Comment on above: Arrived Start: 10-17-2018 End: 10-17-2018 Subsequent hospital visit by physician Flaquita Op Treatment Rm 01 [facility] Specialty Clinic (MOB) Start: 10-16-2018 End: 10-16-2018 Subsequent hospital visit by physician [facility] Laboratory Comment on above: 27 weeks gestation o f ; Rh negative state in antepartum period, third trimester RhD negative [facility] [place] [place] Procedures Date Procedure Procedure Detail Performing Clinician Start: 04-16-2024 MR HEAD/BRAIN WO CON Kika Guaman STONEMASON SUPERVISOR Work Phone: Start: 06-16-2023 X-ray of left ankle Kika Guaman Work Phone: Start: 04-20-2023 End: 04-20-2023 H/O: surgery Status post bilateral salpingectomy Kika Guaman STONEMASON SUPERVISOR Work Phone: Start: 04-07-2023 POC COVID/FLU/RSV Start: 04-07-2023 Quick Strep (POC) Start: 03-23-2023 IGP,APTIMA HPV,AGE GDLN Kika Guaman STONEMASON SUPERVISOR Work Phone: Start: 03-23-2023 Microscopic observation [Identifier] in Cervix by Cyto stain Kika Guaman STONEMASON SUPERVISOR Work Phone: Start: 01-02-2020 Obstetric panel [facility] Start: 01-02-2020 TYPE AND SCREEN [facility] Start: 01-02-2020 Antibody hiv-1&hiv-2 single result [facility] Start: 01-02-2020 C.TRACHOMATIS N.GONORRHOEAE DNA, URINE [facility] Start: 01-02-2020 Culture bacterial quanttative colony count urine [facility] Start: 01-02-2020 Drug screen, qualitate/multi [facility] Start: 01-02-2020 Hemoglobin glycosylated a1c [facility] Start: 01-02-2020 Hepatitis c antibody [facility] Start: 01-02-2020 Antibody screen Kika Guaman Start: 01-02-2020 Blood typing serologic abo [facility] E Pool Work Phone: Start: 01-02-2020 Obstetric panel Amaya E Pool Work Phone: Start: 01-02-2020 Antibody hiv-1&hiv-2 single result Amaya E Pool Work Phone: Start: 01-02-2020 Drug screen, qualitate/multi Amaya E Pool Work Phone: Start: 01-02-2020 Hepatitis c antibody Amaya E Pool Work Phone: Start: 10-11-2019 Iaad ia chlamydia trachomatis [facility] Start: 10-11-2019 Screen pap by maicol hawthorne md supv [facility] Start: 02-06-2019 Gonadotropin chorionic quantitative [facility] Start: 02-06-2019 Gonadotropin chorionic quantitative Amaya E Pool SYSTEM ARCHITECT - CNM Work Phone: Start: 01-08-2019 Glucose quantitative blood xcpt reagent strip [facility] Start: 01-08-2019 Glucose tolerance test gtt 3 specimens [facility] Start: 01-08-2019 GLUCOSE, WHOLE BLOOD Amaya E Pool Work Phone: Start: 01-08-2019 Glucose tolerance test gtt 3 specimens Amaya E Pool Work Phone: Start: 12-22-2018 GLUCOSE, WHOLE BLOOD Amaya E Pool Work Phone: Start: 12-21-2018 Assay of blood/uric acid Amaya E Pool Work Phone: Start: 12-21-2018 Blood count complete auto&auto difrntl wbc Amaya E Pool Work Phone: Start: 12-21-2018 Comprehensive metabolic panel Amaya E Pool Work Phone: Start: 12-21-2018 Fibrinogen activity Amaya E Pool Work Phone: Start: 12-21-2018 Lactate dehydrogenase ldh Amaya E Poo l Work Phone: Start: 12-21-2018 Prothrombin time Amaya E Pool Work Phone: Start: 12-21-2018 Thromboplastin time partial plasma/whole blood Amaya E Pool Work Phone: Start: 12-21-2018 Drug screen class list a Amaya Russo Work Phone: Start: 12-06-2018 nonstress test Freya escobedo Work Phone: Start: 12-04-2018 Assay of blood/uric acid Amaya Russo Work Phone: Start: 12-04-2018 Blood count complete auto&auto difrntl wbc Amaya Russo Work Phone: Start: 12-04-2018 Comprehensive metabolic panel Amaya Russo Work Phone: Start: 12-04-2018 Fibrinogen activity Amaya [employer] Work Phone: Start: 12-04-2018 IMMATURE PLATELET FRACTION Amaya Russo Work Phone: Start: 12-04-2018 Lactate dehydrogenase ldh Amaya Pooleo l Work Phone: Start: 12-04-2018 Prothrombin time Amaya Russo Work Phone: Start: 12-04-2018 Thromboplastin time partial plasma/whole blood Amaya Russo Work Phone: Start: 12-04-2018 Protein total xcpt refractometry urine Amaya Russo Work Phone: Start: 12-04-2018 Urinalysis microscopic only Amaya Russo Work Phone: Start: 12-04-2018 Urnls dip stick/tablet rgnt auto w/o microscopy Amaya Russo Work Phone: Start: 12-04-2018 nonstress test Amaya [employer] Work Phone: Start: 10-16-2018 Blood count hemoglobin [employer]aya [employer] Work Phone: Start: 10-16-2018 Blood typing serologic rh (d) [employer]aya [employer] Work Phone: Start: 10-16-2018 Glucose tolerance test gtt 3 specimens Amaya [employer] Work Phone: Plan of Treatment Date Care Activity Detail Author Start: 12-23-2028 DTaP/Tdap/Td vaccine (3 - Td) DTaP/Tdap/Td vaccine (3 - Td) [place] Start: 12-23-2028 DTaP/Tdap/Td vaccine (9 - Td) DTaP/Tdap/Td vaccine (9 - Td) [place] Start: 03-23-2026 Screening for malign ant neoplasm of cervix [facility] Start: 02-10-2026 DTaP/Tdap/Td vaccine (2 - Td) DTaP/Tdap/Td vaccine (2 - Td) [place], [place] Start: 10-10-2024 Screening for malign ant neoplasm of cervix Cervical cancer screen [place], [place] Start: 05-09-2024 End: 05-09-2024 Patient encounter procedure 05/09/2024 9:40 AM EDT Office Visit [facility] [address] [place] [place] [address] Kika Guaman, STONEMASON SUPERVISOR [address] [place] [phone] [facility] Start: 04-10-2024 End: 04-10-2025 MR Brain WO contrast MR brain wo contrast Imaging Routine Migraine without aura and without status migrainosus, not intractable (CMS/HCC) Expected: 04/10/2024 (Approximate), Expires: 04/10/2025 [facility] Work Phone: Comment on above: Expected: 04/10/2024 (Approximate), Expires: 04/10/2025 Start: 04-10-2024 End: 04-10-2024 Patient encounter procedure 04/10/2024 9:00 AM EST Office Visit [facility] [address] [place] [phone] Kika Guaman, STONEMASON SUPERVISOR [address] [place] [phone] [facility] Start: 2024 End: 2024 Patient encounter procedure 2024 9:40 AM EST Office Visit [facility] [address] [place] [phone] Kika Guaman, STONEMASON SUPERVISOR [address] [place] [phone] Major depressive disorder, single episode, moderate (HCC) (CMS/HCC) (Primary Dx); Morbid (severe) obesity due to excess calories (CMS/HCC) [facility] Comment on above: Major depressive dis order, single episode, moderate (HCC) (CMS/HCC) (Primary Dx); Morbid (severe) obesity due to excess calories (CMS/HCC) Start: 02-06-2024 End: 02-06-2024 Patient encounter procedure 02/06/2024 9:20 AM EST Office Visit [facility] [address] [place] [address] Kika Guaman, STONEMASON SUPERVISOR [address] [place] [phone] [facility] Start: 08-21-2023 Influenza vaccination Influenza Vacc ine (#1) [facility] Comment on above: Postponed from 10/22 (Patient Refused) Start: 04-20-2023 End: 04-20-2023 Patient encounter procedure 04/20/2023 8:40 AM EST Office Visit [facility] [address] [place] [address] Kika Guaman, FELICIA [address] [place] [phone] [facility] Start: 10-03-2022 Cervical cancer screen Cervical canc er screen [facility], [place] Start: 10-03-2022 Screening for malign ant neoplasm of cervix [facility] Start: 10-16-2020 End: 10-16-2020 Office Visit 10/16/2020 Office Visit Obstetrics and Gynecology Amaya Russo APRN - CNM [address] [place] [address] [facility] Start: 01-21-2020 End: 01-21-2020 Routine 01/21/2020 Routine Obstetrics and Gynecology Amaya Russo APRN - CNM [address] [place] [address] [phone] [facility] Start: 01-16-2020 End: 01-16-2020 Ancillary Procedure 01/16/2020 Ancillary Procedure Obstetrics and Gynecology [facility] Start: 12-22-2019 Creatinine measurement Creatinine mo nitoring [place], [place] Start: 12-22-2019 Creatinine monitoring Creatinine mon [place], [place] Start: 12-22-2019 Potassium monitoring Potassium monit [place], [place] Start: 12-05-2019 Creatinine monitoring Creatinine mon [place], [place] Start: 12-05-2019 Potassium monitoring Potassium monit [place], [place] Start: 10-23-2019 Influenza vaccination Flu vaccine (# 1) [place], [place] Start: 02-26-2019 Influenza vaccination Flu vaccine (# 1) [place] Comment on above: Postponed from 10/22 (Not Indicated) Start: 02-08-2019 End: 02-08-2019 ambulatory 02/08/2019 Visit Obstetrics and Gynecology Amaya Russo APRN - CNM [address] [place] [address] [phone] [facility] [employer]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 WORKER Start: 02-05-2019 End: 02-05-2019 Visit 02/05/2019 Visit Obstetrics and Gynecology Amaya Russo APRN - CNM [address] [place] [address] [phone] [facility] [employer] SU[employer] WORKER Start: 01-25-2019 Varicella Vaccine (1 of 2 - 2-dose childhood series) Varicella Vaccine (1 of 2 - 2-dose childhood series) [place] Comment on above: Postponed from 03/01 (Not Indicated) Start: 01-04-2019 End: 01-04-2019 Visit 01/04/2019 Visit [facility]stetrics [facility]necology [facility] SYSTEM ARCHITECT - CN [address] [place] [address] [phone] [facility] [employer] Start: 12-25-2018 Influenza vaccination Flu vaccine (# 1) [place], [place] Comment on above: Postponed from 10/22 (Not Indicated) Start: 12-25-2018 Varicella Vaccine (1 of 2 - 13+ 2-dose series) Varicella Vaccine (1 of 2 - 13+ 2-dose series) [place] Comment on above: Postponed from 03/01 (Not Indicated) Start: 12-21-2018 End: 12-21-2018 Routine 12/21/2018 Routine Obstetrics and Gynecology [facility] [employer] ARCHITECT - CN [address] [place] [address] [phone] [facility] [employer] WORKER Start: 12-14-2018 End: 12-14-2018 Routine 12/14/2018 Routine Obstetrics and Gynecology [facility], SYSTEM ARCHITECT - CN [address] [place] [address] [phone] [facility] [employer] SU[employer] WORKER Start: 11-06-2018 End: 11-06-2018 Routine 11/06/2018 Routine Obstetrics and Gynecology [facility], SYSTEM ARCHITECT - CN [address] [place] [address] [phone] [facility] [employer]ING SUPPORT WORKER Start: 10-22-2018 Influenza vaccination Flu vaccine (# 1) [place], [place] Start: 2000 Varicella Vaccine (1 of 2 - 13+ 2-dose series) Varicella Vaccine (1 of 2 - 13+ 2-dose series) [place], [place] Start: 1988 Varicella vaccine (1 of 2 - 2-dose childhood series) Varicella vaccine (1 of 2 - 2-dose childhood series) [facility] Phone: End: 10-11-2019 C.trachomatis N.gonorrhoeae DNA, Thin Prep C.trachomatis N.gonorrhoeae DNA, Thin Prep Microbiology Routine Screen for STD (sexually transmitted disease) 1 Occurrences starting 10/11/2019 until 10/11/2019 [place], [place] Comment on above: 1 Occurrences starti ng 10/11/2019 until 10/11/2019 C.trachomatis N.gonorrhoeae DNA, Thin Prep C.trachomatis N.gonorrhoeae DNA, Thin Prep Microbiology Routine Screen for STD (sexually transmitted disease) 10/11/2019 12:16 PM EDT [place] End: 01-02-2020 C.trachomatis N.gonorrhoeae DNA, Urine C.trachomatis N.gonorrhoeae DNA, Urine Microbiology Routine Amenorrhea Positive urine test Encounter for supervision of other normal in first trimester 1 Occurrences starting 01/02/2020 until 01/02/2020 [place] Comment on above: 1 Occurrences starti ng 01/02/2020 until 01/02/2020 C.trachomatis N.gonorrhoeae DNA, Urine C.trachomatis N.gonorrhoeae DNA, Urine Microbiology Routine Amenorrhea Positive urine test Encounter for supervision of other normal in first trimester 01/02/2020 4:57 PM EST [place] End: 01-02-2020 Culture, Urine Culture, Urine Microbiology Routine Amenorrhea Positive urine test Encounter for supervision of other normal in first trimester 1 Occurrences starting 01/02/2020 until 01/02/2020 [place], [place] Comment on above: 1 Occurrences starti ng 01/02/2020 until 01/02/2020 Culture, Urine Culture, Urine Microbiology Routine Amenorrhea Positive urine test Encounter for supervision of other normal in first trimester 01/02/2020 4:57 PM [place], [place] End: 10-11-2019 Cytopathology procedure, preparation of smear, genital source [facility] Lab Routine Encounter for well woman exam with routine gynecological exam 1 Occurrences starting 10/11/2019 until 10/11/2019 [place], [place] Comment on above: 1 Occurrences starti ng 10/11/2019 until 10/11/2019 nonstress test nonst ress test OB Routine Daily until discontinued starting 12/06/2018, [facility] above: Daily until disconti nued starting 12/06/2018, 1 completed End: 12-04-2018 nonstress test nonstress test OB Routine One Time for 1 Occurrences starting 12/04/2018 until 12/04/2018 [facility] Comment on above: One Time for 1 Occur rences starting 12/04/2018 until 12/04/2018 End: 01-02-2020 HbA1c (Bld) [Mass fraction] Hemoglobin A1C Lab Routine Amenorrhea Positive urine test Encounter for supervision of other normal in first trimester 1 Occurrences starting 01/02/2020 until 01/02/2020 [facility] Comment on above: 1 Occurrences starti ng 01/02/2020 until 01/02/2020 HbA1c (Bld) [Mass fraction] Hemoglobin A1C Lab Routine Amenorrhea Positive urine test Encounter for supervision of other normal in first trimester 01/02/2020 4:57 PM EST [facility] [place] Nonrebreather mask oxygen Nonrebreather mask oxygen Respiratory Care Routine As directed - RT (PRN) until discontinued starting 12/05/2018 [facility] Comment on above: As directed - RT (VA N) until discontinued starting 12/05/2018 End: 12-22-2018 POCT Glucose POCT Glucose Point of Care Testing Routine One Time for 1 Occurrences starting 12/22/2018 until 12/22/2018 [facility] Comment on above: One Time for 1 Occur rences starting 12/22/2018 until 12/22/2018 RHOGAM ANTEPARTUM RHOGAM ANTEPAR ANDRA Blood Bank Routine 27 weeks gestation of Rh negative state in antepartum period, third trimester 10/16/2018 7:08 PM EDT [facility] RHOGAM RHOGAM POSTPAR ANDRA Blood Bank [employer] Label Print 12/22/2018 2:55 PM EDT [facility] [place] End: 12-13-2018 Strep B Screen, Vaginal / Rectal Strep B Screen, Vaginal / Rectal Microbiology Routine 35 weeks gestation of 1 Occurrences starting 12/13/2018 until 12/13/2018 [facility] Comment on above: 1 Occurrences starti ng 12/13/2018 until 12/13/2018 Strep B Screen, Vagi nal / Rectal Strep B Screen, Vaginal / Rectal Microbiology Routine 35 weeks gestation of 12/13/2018 4:12 PM EDT [place], [place] End: 12-05-2018 SVE SVE Point of Care Testing Routine One Time for 1 Occurrences starting 12/05/2018 until 12/05/2018 [place] Comment on above: One Time for 1 Occur rences starting 12/05/2018 until 12/05/2018 XR Ankle - left GE 3 Views [facility] Immunizations Immunization Date Immunization Notes Care Provider Fa cility 12-23-2018 tetanus toxoid, redu carolina diphtheria toxoid, and acellular pertussis vaccine, adsorbed [facility], [place] 12-22-2018 diphtheria, tetanus toxoids and acellular pertussis vaccine, unspecified formulation [facility] , [place] 02-11-2016 tetanus toxoid, redu carolina diphtheria toxoid, and acellular pertussis vaccine, adsorbed [facility] 05-08-2014 RHO(D) immune globul in - IM [facility] 05-30-2010 tetanus toxoid, redu carolina diphtheria toxoid, and acellular pertussis vaccine, adsorbed Kika Aichholz [employer]PER[employer] Work Phone: [facility] 05-15-2002 tetanus toxoid, adsorbed Kika Aichholz [employer] SUPER[employer] Work Phone: [facility] 06-19-1999 measles, mumps and rubella virus vaccine Kika Aichholz [employer] SUPERVISOR Work Phone: [facility] 08-20-1992 diphtheria, tetanus toxoids and acellular pertussis vaccine, unspecified formulation Kika Aichholz [employer] SUPERVISOR Work Phone: [facility] 08-20-1992 poliovirus vaccine, unspecified formulation Kika Aichholz [employer] SUPERVISOR Work Phone: [facility] 09-17-1988 diphtheria, tetanus toxoids and acellular pertussis vaccine, unspecified formulation Kika Aichholz [employer] SUPERVISOR Work Phone: [facility] 09-17-1988 haemophilus influenz ae type b vaccine, conjugate unspecified formulation Kika Aichholz [employer]EM[employer] SUPERVISOR Work Phone: [facility] 09-17-1988 measles, mumps and rubella virus vaccine Kika Aichholz [employer]EM[employer] SUPERVISOR Work Phone: [facility] 1987 diphtheria, tetanus toxoids and pertussis vaccine Kika Aichholz [employer]EM[employer] SUPERVISOR Work Phone: [facility] 1987 trivalent poliovirus vaccine, live, oral Kika Aichholz [employer]EM[employer] SUPERVISOR Work Phone: [facility] 1987 diphtheria, tetanus toxoids and acellular pertussis vaccine, unspecified formulation Kika Aichholz [employer]ONEM[employer] SUPERVISOR Work Phone: [facility] 1987 poliovirus vaccine, unspecified formulation Kika Aichholz [employer]ONEM[employer]ON SUPERVISOR Work Phone: [facility] 1987 diphtheria, tetanus toxoids and acellular pertussis vaccine, unspecified formulation Kika Aichholz [employer]EM[employer] SUPERVISOR Work Phone: [facility] 1987 poliovirus vaccine, unspecified formulation Kika Aichholz [employer]ONEM[employer] SUPERVISOR Work Phone: [facility] 1987 diphtheria, tetanus toxoids and acellular pertussis vaccine, unspecified formulation Kika Aichholz [employer]EM[employer] SUPERVISOR Work Phone: [facility] 1987 poliovirus vaccine, unspecified formulation Kika Aichholz [employer]ONEM[employer] SUPERVISOR Work Phone: [facility] Payers Date Payer Category Payer Private Health Insurance [facility] [id number] 2024 Private Health Insurance [id number] 2024 Worker's Compensation [id number] 2023 Self-pay 2020 Managed Care HMO (unspecified) [id number] 2017 Medicaid [employer] [place] [employer] [id number] 2017-Present [address] [place] [address] [id number] 2015 Unknown [facility] xxxxxxxxxxxx 2015-Present [phone] [address] [place] [address] xxxxxxxxxxxx [id number] 1987 Unknown [id number] 2.16.840.1.054308.3.579. 2.173 1987 Unknown [id number] 2.16.840.1.027053.3.579. 2.173 1987 Unknown [id number] 2.16.840.1.912655.3.579. 2.173 1987 Unknown [id number] 2.16.840.1.220932.3.579. 2.173 1987 Unknown [id number] 2.16.840.1.899058.3.579. 2.173 1987 Unknown [id number] 2.16.840.1.530096.3.579. 2.593 1987 Unknown [id number] 2.16.840.1.369470.3.579. 2.593 1987 Unknown [id number] 2.16.840.1.573655.3.579. 2.593 1987 Unknown [id number] 2.16.840.1.577144.3.579. 2.593 1987 Unknown [id number] 2.16.840.1.630580.3.579. 2.593 1987 Unknown [id number] 2.16.840.1.402068.3.579. 2.593 1987 Unknown [id number] 2.16.840.1.156268.3.579. 2.593 1987 Unknown [id number] 2.16.840.1.906504.3.579. 2.1286 1987 Unknown [id number] 2.16.840.1.879527.3.579. 2.1259 1987 Unknown [id number] 2.16.840.1.180898.3.579. 2.9 1987 Unknown [id number] 2.16.840.1.056040.3.579. 2.9 1987 Unknown [id number] 2.16.840.1.122900.3.579. 2.1258 1987 Unknown [id number] 2.16.840.1.874724.3.579. 2.9 1987 Unknown [id number] 2.16.840.1.504806.3.579. 2.1258 1987 Unknown [id number] 2.16.840.1.381007.3.579. 2.9 1987 Unknown [id number] 2.16.840.1.114781.3.579. 2.1258 1987 Unknown [id number] 2.16.840.1.544712.3.579. 2.9 1987 Unknown [id number] 2.16.840.1.392972.3.579. 2.1258 1987 Unknown [id number] 2.16.840.1.708949.3.579. 2.1259 1987 Unknown [id number] 2.16.840.1.643759.3.579. 2.1259 1987 Unknown [id number] 2.16.840.1.214240.3.579. 2.1259 1987 Unknown [id number] 2.16.840.1.535863.3.579. 2.1259 1959 Private Health Insurance [id number] 2.16.840.1.686561.19 1959 Unknown [id number] 1.2.840.398691.1.13.239. 2.7.3.413990.315 Unknown [id number] 2.16.840.1.644928.3.579. 2.531 Social History Date Type Detail Facility Start: 08-28-2018 End: 07-30-2022 Tobacco smoking status [facility] Never smoker [facility] Start: 08-28-2018 End: 2024 Alcohol intake Not Currently [facility] Start: 03-28-2014 Alcohol Comment [facility] [place], [place] Start: 04-20-2018 [place], [place] Start: 1985 Sex Assigned At Not on file [place], [place] Start: 10-11-2019 End: 01-02-2020 Tobacco use and exposure Never used [place], [place] Start: 01-04-2019 End: 10-11-2019 Alcohol intake Ex-drinker (finding) [facility] Exposure to SARS-CoV -2 (event) Not sure [place], [place] Start: 03-23-2023 End: 04-10-2024 Alcohol intake Lifetime non-drinker (finding) [facility] Start: 02-22-2023 End: 2024 History of Social function [facility] Within [...] Start: 1985 Sex Assigned At Female F [facility] How often do you hav e 6 or more drinks on 1 occasion? Never [facility] How hard is it for y ou to pay for the very basics like food, housing, medical care, and heating Somewhat hard [facility] Do you feel stress - tense, restless, nervous, or anxious, or unable to sleep at night because your mind is troubled all the time - these days [OSQ] Rather much [facility] (I/We) worried wheth er (my/our) food would run out before (I/we) got money to buy more. Sometimes true [facility] Medical Equipment Procedure Code Equipment Code Equipment Origin al Text Equipment Identifier Dates Pt to test four times daily fastin, 2 hr pp [id number] Start: 10-18-2018 End: 12-23-2018 1 each by Other route 4 times daily One glucometer, test strips, lancets - per insurance coverage [id number] Start: 10-18-2018 End: 10-18-2019 use to test BLOO D SUGAR FOUR TIMES DAILY [id number] Start: 10-23-2018 End: 12-23-2018 Clinical Notes 12-10-2020 to 04-10-2024 Kika Guaman, [employer] SUPERVISOR - 04/10/2024 9:35 AM ESTCESAR GODWIN - 04/10/2024 9:00 AM Venancio Guaman NP - 04/10/2024 9:00 AM Venancio Guaman NP - 04/10/2024 6:24 AM ESTPatient Instructions Note Date & Type Note Facility 04-10-2024 History of Presen t illness Narrative Associated Problem(s): Acute non-recurrent maxillary sinusitis Fluids, rest Atb, fu if not better Sinus issues that started Th evening. Symptoms include: sore throat, neck stiffness, slight cough, migraine, left side sinus pressure, tender neck glands, light headed, vertigo feeling, stuffy nose. Pt states the qulipta was helpful- she took with onset of migraine and took migraine completely away. Pt states she does not feel as tired with the wegovy Images from the original note were not included. Robles Yen is a 39 y.o. female presents with chief complaint of No chief complaint on file. HPI: Illlness; Sinus issues that started Th evening. Symptoms include: sore throat, neck stiffness, slight cough, migraine, left side sinus pressure, tender neck glands, light headed, vertigo feeling, stuffy nose. No fever Migraine: Pt states the qulipta was helpful- she took with onset of migraine and took migraine completely away. No changes in s/s freq of migraines, see prior note Obesity: started wegovy injection, no acute abd pain, [place] SUBJECTIVE: MEDICATIONS: Current Outpatient Medications Medication Instructions hydrOXYzine pamoate (Vistaril) 25 MG capsule 1-2 capsules as needed Orally twice daily for 30 days As needed for insomnia or panic attack norethindrone ac-eth estradio (Lorelei 1.5/30) 1.5-30 MG-MCG tablet tablet 1 tablet, Oral, Daily MV & Min w/FA-DHA ( Gummies) 0.18-25 MG chewable tablet as directed Orally Qulipta 60 mg, Oral, Daily sertraline (ZOLOFT) 75 mg, Daily valACYclovir (VALTREX) 500 mg, Oral, Daily Wegovy 0.5 mg, Subcutaneous, Every 7 days ALLERGIES: No Known Allergies REVIEW OF SYMPTOMS: Review of Systems Constitutional: Negative for appetite change, chills and fever. HENT: Positive for congestion, sinus pressure and sore throat. Negative for ear pain. Eyes: Negative for pain, discharge, redness and visual disturbance. Respiratory: Negative for cough, shortness of breath and wheezing. Cardiovascular: Negative for chest pain, palpitations and leg swelling. Gastrointestinal: Negative for abdominal pain, blood in stool, constipation, diarrhea, nausea and vomiting. Genitourinary: Negative for difficulty urinating, dysuria and frequency. Musculoskeletal: Negative for arthralgias, back pain, joint swelling and myalgias. Skin: Negative for rash and wound. Neurological: Negative for dizziness, tremors, seizures, syncope and headaches. Psychiatric/Behavioral: Negative for behavioral problems, self-injury and suicidal ideas. The patient is not nervous/anxious. Hematological: Does not bruise/bleed easily. Endocrine: Negative for polydipsia, polyphagia and polyuria. Allergic/Immunologic: Negative for environmental allergies and food allergies. PAST MEDICAL HISTORY Past Medical History: Diagnosis Date Abnormal results of thyroid function studies Fatigue 04/20/2023 Posterior left knee pain 04/20/2023 Status post bilateral salpingectomy 04/20/2023 Past Surgical History: Procedure Laterality Date APPENDECTOMY 08/2007 CHOLECYSTECTOMY 2014 KNEE ARTHROSCOPY W/ MENISCECTOMY Left 07/16/2022 STEPANIC KNEE SURGERY Right 2009 Arthroscopy knee, Dr. Denis KNEE SURGERY Left 2017 LT KNEE SCOPE- STEPANIC [facility] HAND/FINGER SURGERY UNLISTED Right 2002 thumb family history includes Anemia in her sister; Multiple sclerosis in her father; Other in her father; Thyroid disease in her cousin and maternal grandmother. OBJECTIVE: Visit Vitals BP 120/90 (BP Location: Left arm, Patient Position: Sitting, BP Cuff Size: Adult long) Pulse 71 Temp 98.1 F (Temporal) Resp 18 Ht 5' 3 Wt 198 lb 3.2 oz SpO2 97% BMI 35.11 kg/m OB Status Having periods Smoking Status Never BSA 2 m Physical Exam Vitals and nursing note reviewed. Constitutional: General: She is not in acute distress. Appearance: Normal appearance. She is not ill-appearing. HENT: Head: Normocephalic and atraumatic. Right Ear: Tympanic membrane, ear canal and external ear normal. Left Ear: Ear canal and external ear normal. Ears: Comments: Dull left TM Nose: Nose normal. No congestion or rhinorrhea. Comments: Left maxillary sinus tenderness Mouth/Throat: Mouth: Mucous membranes are moist. Pharynx: No oropharyngeal exudate or posterior oropharyngeal erythema. Eyes: Extraocular Movements: Extraocular movements intact. Conjunctiva/sclera: Conjunctivae normal. Cardiovascular: Rate and Rhythm: Normal rate and regular rhythm. Pulses: Normal pulses. Heart sounds: Normal heart sounds. Pulmonary: Effort: Pulmonary effort is normal. Breath sounds: Normal breath sounds. No wheezing or rales. Abdominal: General: Bowel sounds are normal. There is no distension. Palpations: Abdomen is soft. There is no mass. Tenderness: There is no abdominal tenderness. Musculoskeletal: General: Normal range of motion. Cervical back: Normal range of motion and neck supple. Right lower leg: No edema. Left lower leg: No edema. Lymphadenopathy: Cervical: No cervical adenopathy. Skin: General: Skin is warm and dry. Capillary Refill: Capillary refill takes 2 to 3 seconds. Findings: No rash. Neurological: General: No focal deficit present. Mental Status: She is alert and oriented to person, place, and time. Cranial Nerves: No cranial nerve deficit. Comments: Neg romberg Psychiatric: Mood and Affect: Mood normal. Behavior: Behavior normal. Thought Content: Thought content normal. Judgment: Judgment normal. ASSESSMENT AND PLAN: No follow-ups on file. Problem List Items Addressed This Visit Migraine without aura and without status migrainosus, not intractable (CMS/HCC) - Primary Trialed: nsaids, imitrex, ubrelvey, topamax CT head: 04/05/23: normal Last appt trialed some qulipta No MRI brain at [facility] Qulipta did help Relevant Medications Atogepant (Qulipta) 60 MG tablet BMI 35.0-35.9,adult Relevant Medications Semaglutide-Weight Management (Wegovy) 0.5 MG/0.5ML solution auto-injector Morbid (severe) obesity due to excess calories (CMS/HCC) Discussed with patient their BMI (actual, verses recommended). We have also discussed lifestyle modifications: attempts to perform physical activity as chronic conditions allow, also to monitor dietary intake: increasing protein/fruits/veggies and lowering carb intake (unless contraindicated). Limit sodas, juices, and sugary drinks. Continue with wegovy Relevant Medications Semaglutide-Weight Management (Wegovy) 0.5 MG/0.5ML solution auto-injector Associated Problem(s): Migraine without aura and without status migrainosus, not intractable (CMS/HCC) Trialed: nsaids, imitrex, ubrelvey, topamax CT head: 04/05/23: normal Last appt trialed some qulipta No MRI brain at [facility] Qulipta did help, will continue Order MRI brain without Associated Problem(s): Morbid (severe) obesity due to excess calories (CMS/HCC) Discussed with patient their BMI (actual, verses recommended). We have also discussed lifestyle modifications: attempts to perform physical activity as chronic conditions allow, also to monitor dietary intake: increasing protein/fruits/veggies and lowering carb intake (unless contraindicated). Limit sodas, juices, and sugary drinks. Continue with wegovy currently week #2 of 0.5mg dose Will send in new script 1mg documented in this encounter [facility] 04-10-2024 Instructions Kika Guaman NP - 04/10/2024 9:00 AM EST Sinus: finish atb, fluids, rest fu if not better GARCIA: qulipta 60mg daily, will try to get MRI approved for [facility] Weight loss; after finished with 0.5mg wegovy, increase in 1mg documented in this encounter [facility] 03-20-2024 Telephone encounter Note Form atting of this note might be different from the original. Please call to schedule pt a well women examination please [place] [facility] 03-20-2024 Miscellaneous Notes Formattin g of this note might be different from the original. Please call to schedule pt a well women examination please [place] documented in this encounter [facility] 2024 History of Presen t illness Narrative Associated Problem(s): Moderate anxiety Current medication sertraline at 75mg daily Follow with mental health Associated Problem(s): Major depressive disorder, single episode, moderate (HCC) (CMS/HCC) Is currently taking sertraline for this, tolerating well Associated Problem(s): Migraine without aura and without status migrainosus, not intractable (CMS/HCC) Trial sample of qulipta 60 mg daily #2 samples, lot [id number], exp 11/16 Trialed: nsaids, imitrex, ubrelvey, topamax CT head: 04/05/23: normal MRI brain: reports has had one in the last year or so, will attempt to track down. Left message for [facility] radiology for MRI report Pt states the [employer] is not working for her anymore. Pt is still having migraines- currently having one in the last two days behind left eye Images from the original note were not included. Robles Yen is a 39 y.o. female presents with chief complaint of Weight Gain HPI: GARCIA: 10 days per month, using topamax, ibuprofen, excedrin, imitrex, fioracet, and ubrelvey. Stressors: are elevated as well MRI brain: within the last year or so Weight gain: has been on saxenda in the past, close to 20 pounds lost, then eventually stopped d/t expense of med. While doing the saxKii: was working out at the gym, monitoring caloric intake. Not able to get insurance coverage for wegovy, ultimately went back to [employer] around 12/14, she is up to max dose on Saxenda, no significant changes in her appetite, but still no weight loss, infact is 3 pounds heavier. Is trying to stick to about 1800 cals daily, gym weights, treadmill, stationary bike, stair climber Was hoping with insurance change we could again try to submit for wegovy or something. Migraine This is a chronic problem. The current episode started more than 1 year ago. The problem occurs intermittently. The problem has been gradually worsening. The pain is located in the Left unilateral region. The pain radiates to the upper back. The pain quality is similar to prior headaches. The quality of the pain is described as throbbing and sharp. The pain is at a severity of 10/10. The pain is moderate. Associated symptoms include blurred vision, nausea, phonophobia, scalp tenderness and a visual change. Pertinent negatives include no abdominal pain, back pain, coughing, dizziness, ear pain, eye pain, eye redness, fever, numbness, photophobia, rhinorrhea, seizures, sore throat, tingling or vomiting. Exacerbated by: certain smells, worse at work. SUBJECTIVE: MEDICATIONS: Current Outpatient Medications Medication Instructions hydrOXYzine pamoate (Vistaril) 25 MG capsule 1-2 capsules as needed Orally twice daily for 30 days As needed for insomnia or panic attack Liraglutide -Weight Management (Saxenda) 18 MG/3ML solution pen-injector Start with 0.6mg daily for 7 days, every 7 days increase the dose by 0.6mg to max dose of 3mg dailyStart with 0.6mg daily for 7 days, every 7 days increase the dose by 0.6mg to max dose of 3mg daily norethindrone ac-eth estradio (Lorelei 1.5/30) 1.5-30 MG-MCG tablet tablet 1 tablet, Oral, Daily MV & Min w/FA-DHA ( Gummies) 0.18-25 MG chewable tablet as directed Orally Qulipta 60 mg, Oral, Daily sertraline (ZOLOFT) 75 mg, Daily valACYclovir (VALTREX) 500 mg, As needed Wegovy 0.25 mg, Subcutaneous, Every 7 days ALLERGIES: No Known Allergies REVIEW OF SYMPTOMS: Review of Systems Constitutional: Negative for appetite change, chills and fever. HENT: Negative for congestion, ear pain, rhinorrhea and sore throat. Eyes: Positive for blurred vision. Negative for photophobia, pain, discharge, redness and visual disturbance. Respiratory: Negative for cough, shortness of breath and wheezing. Cardiovascular: Negative for chest pain, palpitations and leg swelling. Gastrointestinal: Positive for nausea. Negative for abdominal pain, blood in stool, constipation, diarrhea and vomiting. Genitourinary: Negative for difficulty urinating, dysuria and frequency. Musculoskeletal: Negative for arthralgias, back pain, joint swelling and myalgias. Skin: Negative for rash and wound. Neurological: Positive for headaches. Negative for dizziness, tingling, tremors, seizures, syncope and numbness. Psychiatric/Behavioral: Negative for behavioral problems, self-injury and suicidal ideas. The patient is nervous/anxious. Depression Hematological: Does not bruise/bleed easily. Endocrine: Negative for polydipsia, polyphagia and polyuria. Allergic/Immunologic: Negative for environmental allergies and food allergies. PAST MEDICAL HISTORY Past Medical History: Diagnosis Date Abnormal results of thyroid function studies Fatigue 04/20/2023 Posterior left knee pain 04/20/2023 Status post bilateral salpingectomy 04/20/2023 Past Surgical History: Procedure Laterality Date APPENDECTOMY 08/2007 CHOLECYSTECTOMY 2014 KNEE ARTHROSCOPY W/ MENISCECTOMY Left 07/16/2022 STEPANIC KNEE SURGERY Right 2009 Arthroscopy knee, Dr. Denis KNEE SURGERY Left 2017 LT KNEE SCOPE- STEPANIC [facility] HAND/FINGER SURGERY UNLISTED Right 2002 thumb family history includes Anemia in her sister; Multiple sclerosis in her father; Other in her father; Thyroid disease in her cousin and maternal grandmother. OBJECTIVE: Visit Vitals BP 116/88 (BP Location: Left arm, Patient Position: Sitting, BP Cuff Size: Adult long) Pulse 89 Temp 98.8 F (Temporal) Resp 18 Ht 5' 3 Wt 201 lb SpO2 97% BMI 35.61 kg/m OB Status Having periods Smoking Status Never BSA 2.01 m Physical Exam Vitals and nursing note reviewed. Constitutional: General: She is not in acute distress. Appearance: Normal appearance. She is obese. She is not ill-appearing or diaphoretic. HENT: Head: Normocephalic and atraumatic. Right Ear: Tympanic membrane, ear canal and external ear normal. Left Ear: Tympanic membrane, ear canal and external ear normal. Nose: Nose normal. No congestion or rhinorrhea. Mouth/Throat: Mouth: Mucous membranes are moist. Pharynx: No oropharyngeal exudate or posterior oropharyngeal erythema. Eyes: General: No scleral icterus. Extraocular Movements: Extraocular movements intact. Conjunctiva/sclera: Conjunctivae normal. Pupils: Pupils are equal, round, and reactive to light. Cardiovascular: Rate and Rhythm: Normal rate and regular rhythm. Pulses: Normal pulses. Heart sounds: Normal heart sounds. Pulmonary: Effort: Pulmonary effort is normal. Breath sounds: Normal breath sounds. No wheezing, rhonchi or rales. Chest: Chest wall: No tenderness. Abdominal: General: Bowel sounds are normal. There is no distension. Palpations: Abdomen is soft. There is no mass. Tenderness: There is no abdominal tenderness. There is no rebound. Musculoskeletal: General: Normal range of motion. Cervical back: Normal range of motion and neck supple. Right lower leg: No edema. Left lower leg: No edema. Lymphadenopathy: Cervical: No cervical adenopathy. Skin: General: Skin is warm and dry. Capillary Refill: Capillary refill takes 2 to 3 seconds. Findings: No rash. Neurological: General: No focal deficit present. Mental Status: She is alert and oriented to person, place, and time. Cranial Nerves: No cranial nerve deficit. Sensory: No sensory deficit. Motor: No weakness. Psychiatric: Mood and Affect: Mood normal. Behavior: Behavior normal. Thought Content: Thought content normal. Judgment: Judgment normal. ASSESSMENT AND PLAN: Follow up in about 6 weeks (around 04/12/2024) for Recheck. Problem List Items Addressed This Visit Migraine without aura and without status migrainosus, not intractable (CMS/HCC) - Primary Trial sample of qulipta 60 mg daily #2 samples, lot [id number], exp 11/16 Trialed: nsaids, imitrex, ubrelvey, topamax CT head: 04/05/23: normal MRI brain: reports has had one in the last year or so, will attempt to track down. Left message for [facility] radiology for MRI report Morbid (severe) obesity due to excess calories (CMS/HCC) Discussed with patient their BMI (actual, verses recommended). We have also discussed lifestyle modifications: attempts to perform physical activity as chronic conditions allow, also to monitor dietary intake: increasing protein/fruits/veggies and lowering carb intake (unless contraindicated). Limit sodas, juices, and sugary drinks. Currently on Saxenda , insurance will not cover Wegovy. But has new insurance so we will try again Relevant Medications Semaglutide-Weight Management (Wegovy) 0.25 MG/0.5ML solution auto-injector Moderate anxiety Current medication sertraline at 75mg daily Follow with mental health Major depressive disorder, single episode, moderate (HCC) (CMS/HCC) Is currently taking sertraline for this, tolerating well Associated Problem(s): Morbid (severe) obesity due to excess calories (CMS/HCC) Discussed with patient their BMI (actual, verses recommended). We have also discussed lifestyle modifications: attempts to perform physical activity as chronic conditions allow, also to monitor dietary intake: increasing protein/fruits/veggies and lowering carb intake (unless contraindicated). Limit sodas, juices, and sugary drinks. Currently on Saxenda , insurance will not cover Wegovy. But has new insurance so we will try again documented in this encounter [facility] 2024 Instructions Kika Guaman NP - 2024 9:40 AM EST I will try to re submit wegovy to insurance, if approved we will have to stop saxenda and start that Migraines: Qulipta 60mg daily, for migraine headaches documented in this encounter [facility] 01-21-2024 Telephone encounter Note Form atting of this note might be different from the original. I did speak to pt, only symptom is cough, no sinus pressure or nasal drainage. Has tried OTC Nyquil as well as tylenol cough/cold Will send in tessalon script [facility] 01-21-2024 Miscellaneous Notes Formattin g of this note might be different from the original. I did speak to pt, only symptom is cough, no sinus pressure or nasal drainage. Has tried OTC Nyquil as well as tylenol cough/cold Will send in tessalon script documented in this encounter [facility] 11-09-2023 History of Presen t illness Narrative Associated Problem(s): Moderate major depression (CMS/HCC) Follow with mental health Associated Problem(s): Moderate anxiety Follow with mental health Associated Problem(s): Morbid (severe) obesity due to excess calories (CMS/HCC) Still working to get saxenda Associated Problem(s): Dysmenorrhea Refill BCP Pt has lost 12lbs since last visit, not intentional, it has been due to under stress. Lorelei control now needs to be a 90 day supply per insurance request Images from the original note were not included. Robles Yen is a 38 y.o. female presents with chief complaint of No chief complaint on file. HPI: Here for a recheck. Has been under a lot of stressors recently, which she does believe is contributing to some weight loss. She also is going to counseling, and was referred to their medical mgmt team as well. They have recommended that she increase her sertraline to 75mg daily. She denies SI/HI/hallucinations. She has not picked up her saxenda, as the ray went from 50.00 to 80.00 no change in insurance or pharmacy locations. She is still following with podiatry and has been referred to pain mgmt as well SUBJECTIVE: MEDICATIONS: Current Outpatient Medications Medication Instructions acetaminophen (TYLENOL) 325 mg, Oral, Every 4 hours PRN hydrOXYzine pamoate (Vistaril) 25 MG capsule 1-2 capsules as needed Orally twice daily for 30 days As needed for insomnia or panic attack Lorelei 1.5/30 1.5-30 MG-MCG tablet tablet 1 tablet, Oral, Daily Liraglutide -Weight Management (Saxenda) 18 MG/3ML solution pen-injector Start with 0.6mg daily for 7 days, every 7 days increase the dose by 0.6mg to max dose of 3mg daily Multiple Vitamin (Daily-Vitamin) tablet 1 tablet, Oral, Daily sertraline (Zoloft) 50 MG tablet 1.5 TABLETS Oral MORNING for 30 days Dose increase 11/07/23 valACYclovir (VALTREX) 500 mg, Oral, As needed ALLERGIES: No Known Allergies REVIEW OF SYMPTOMS: Review of Systems Constitutional: Negative for appetite change, chills and fever. HENT: Negative for congestion, ear pain and sore throat. Eyes: Negative for pain, discharge, redness and visual disturbance. Respiratory: Negative for cough, shortness of breath and wheezing. Cardiovascular: Negative for chest pain, palpitations and leg swelling. Gastrointestinal: Negative for abdominal pain, blood in stool, constipation, diarrhea, nausea and vomiting. Genitourinary: Negative for difficulty urinating, dysuria and frequency. Musculoskeletal: Positive for arthralgias. Negative for back pain, joint swelling and myalgias. Skin: Negative for rash and wound. Neurological: Negative for dizziness, tremors, seizures, syncope and headaches. Psychiatric/Behavioral: Negative for behavioral problems, self-injury and suicidal ideas. The patient is nervous/anxious. Hematological: Does not bruise/bleed easily. Endocrine: Negative for polydipsia, polyphagia and polyuria. Allergic/Immunologic: Negative for environmental allergies and food allergies. PAST MEDICAL HISTORY Past Medical History: Diagnosis Date Abnormal results of thyroid function studies Fatigue 04/20/2023 Posterior left knee pain 04/20/2023 Status post bilateral salpingectomy 04/20/2023 Past Surgical History: Procedure Laterality Date APPENDECTOMY 08/2007 CHOLECYSTECTOMY 2014 KNEE ARTHROSCOPY W/ MENISCECTOMY Left 07/16/2022 STEPANIC KNEE SURGERY Right 2009 Arthroscopy knee, Dr. Denis KNEE SURGERY Left 2017 LT KNEE SCOPE- STEPANIC VA HAND/FINGER SURGERY UNLISTED Right 2002 thumb family history includes Anemia in her sister; Multiple sclerosis in her father; Other in her father; Thyroid disease in her cousin and maternal grandmother. OBJECTIVE: Visit Vitals BP 100/80 (BP Location: Left arm, Patient Position: Sitting, BP Cuff Size: Adult long) Pulse 97 Temp 98.5 F (Temporal) Resp 18 Ht 5' 3 Wt 196 lb 3.2 oz SpO2 97% BMI 34.76 kg/m OB Status Having periods Smoking Status Never BSA 1.99 m Physical Exam Vitals and nursing note reviewed. Constitutional: General: She is not in acute distress. Appearance: Normal appearance. HENT: Head: Normocephalic and atraumatic. Right Ear: External ear normal. Left Ear: External ear normal. Nose: Nose normal. Mouth/Throat: Mouth: Mucous membranes are moist. Eyes: Extraocular Movements: Extraocular movements intact. Conjunctiva/sclera: Conjunctivae normal. Cardiovascular: Rate and Rhythm: Normal rate and regular rhythm. Pulses: Normal pulses. Heart sounds: Normal heart sounds. Pulmonary: Effort: Pulmonary effort is normal. Breath sounds: Normal breath sounds. No wheezing or rales. Abdominal: General: Bowel sounds are normal. There is no distension. Palpations: Abdomen is soft. There is no mass. Tenderness: There is no abdominal tenderness. Musculoskeletal: General: Normal range of motion. Cervical back: Normal range of motion and neck supple. Right lower leg: No edema. Left lower leg: No edema. Lymphadenopathy: Cervical: No cervical adenopathy. Skin: General: Skin is warm and dry. Capillary Refill: Capillary refill takes 2 to 3 seconds. Findings: No rash. Neurological: General: No focal deficit present. Mental Status: She is alert and oriented to person, place, and time. Psychiatric: Mood and Affect: Mood normal. Behavior: Behavior normal. Thought Content: Thought content normal. Judgment: Judgment normal. ASSESSMENT AND PLAN: No follow-ups on file. Problem List Items Addressed This Visit Dysmenorrhea - Primary Refill BCP Relevant Medications norethindrone ac-eth estradio (Lorelei 1.5/30) 1.5-30 MG-MCG tablet tablet Morbid (severe) obesity due to excess calories (CMS/HCC) Still working to [employer] Moderate anxiety Follow with mental health Moderate major depression (CMS/HCC) Follow with mental health documented in this encounter [facility] 05-26-2021 Evaluation note Encounter Date Diagnosis Assessment [...] provided x 1 day, no extension allowed [employer] Other 11-24-2021 Evaluation note* Encounter Date Diagnosis Assessment Notes Treatment Notes Treatment Clinical Notes Dec, Encounter for screening for other viral diseases (ICD-10 - Z11.59) Dec, Other Additional time spent conducting pre-visit phone call, screening for symptoms, instructions on social distancing, application and removal of PPE, and cleaning of examination room, equipment and supplies was preformed. Patient education given for testing methodology and results. Patient care instructions given in writting by [employer] [facility] document. [employer] Other 10-20-2021 Evaluation note* Encounter Date Diagnosis Assessment Notes Treatment Notes Treatment Clinical Notes Nov, Contact with and (suspected) exposure [...] Patient care instructions given in writting by [employer] [facility] document. [employer] Other Chief complaint+Reason for visit Narrative* Chief Complaint throat pain Reason for Visit Contact with and (ortega spected) exposure to covid-19 Sore throat [facility] Work Phone: Evaluation note* Diagnosis Irregular menses Irregular menstrual cycle Possible , not yet confirmed examination or test, unconfirmed documented in this encounter [facility] [employer] Work Phone: evaluation note* Diagnosis Onset Date Resolution Status Contact with and (suspected) exposure to covid-19 acute Sore throat acute [facility] Work Phone: Evaluation note* Diagnosis Onset Date Resolution Status Contact with and (suspected) exposure to covid-19 acute COVID-19 acute Sore throat acute Streptococcal pharyngitis ac [place] Influenza A (H1N1) noneactiv e [facility] Work Phone: Evaluation note* Diagnosis Onset Date Resolution Status Contact with and (suspected) exposure to covid-19 acute COVID-19 acute Sore throat acute Streptococcal pharyngitis ac [place] Influenza A (H1N1) noneactiv e Injury noneactive [facility] Work Phone: Evaluation note* Diagnosis Onset Date Resolution Status Contact with and (suspected) exposure to covid-19 acute COVID-19 acute Sore throat acute Streptococcal pharyngitis ac [place] Influenza A (H1N1) noneactiv e Injury noneactive Left ankle sprain noneactive [facility] Work Phone: Evaluation note* Diagnosis Migraine without aura and without status migrainosus, not intractable (CMS/HCC)- Primary Class 1 obesity due to excess calories without serious comorbidity with body mass index (BMI) of 34.0 to 34.9 in adult Dysmenorrhea Well woman exam with routine gynecological exam- Primary Routine gynecological examination BMI 35.0-35.9,adult Breast lump on right side at 10 o'clock position Lump or mass in breast Left ankle swelling- Primary Effusion of ankle and foot joint Contusion of left knee, initial encounter BMI 35.0-35.9,adult Urinary tract infection without hematuria, site unspecified- Primary Sprain of left ankle, unspecified ligament, sequela BMI 35.0-35.9,adult Encounter for control pills maintenance Surveillance of previously prescribed contraceptive pill Anxiety and depression (CMS/HCC)- Primary Sprain of left ankle, unspecified ligament, sequela Class 2 obesity due to excess calories without serious comorbidity with body mass index (BMI) of 36.0 to 36.9 in adult Anxiety and depression (CMS/HCC)- Primary Morbid (severe) obesity due to excess calories (CMS/HCC) Osteoarthritis of knee, unspecified Body mass index (BMI) 36.0-36.9, adult Moderate anxiety- Primary Dysmenorrhea Morbid (severe) obesity due to excess calories (CMS/HCC) Moderate major depression (CMS/HCC) Major depressive disorder, single episode, moderate Osteoarthritis of knee, unspecified Body mass index (BMI) 36.0-36.9, adult [facility] Diagnosis Migraine without aura and without status migrainosus, not intractable (CMS/HCC)- Primary Class 1 obesity due to excess calories without serious comorbidity with body mass index (BMI) of 34.0 to 34.9 in adult Dysmenorrhea Well woman exam with routine gynecological exam- Primary Routine gynecological examination BMI 35.0-35.9,adult Breast lump on right side at 10 o'clock position Lump or mass in breast Left ankle swelling- Primary Effusion of ankle and foot joint Contusion of left knee, initial encounter BMI 35.0-35.9,adult Urinary tract infection without hematuria, site unspecified- Primary Sprain of left ankle, unspecified ligament, sequela BMI 35.0-35.9,adult Encounter for control pills maintenance Surveillance of previously prescribed contraceptive pill Anxiety and depression (CMS/HCC)- Primary Sprain of left ankle, unspecified ligament, sequela Class 2 obesity due to excess calories without serious comorbidity with body mass index (BMI) of 36.0 to 36.9 in adult Anxiety and depression (CMS/HCC)- Primary Morbid (severe) obesity due to excess calories (CMS/HCC) Osteoarthritis of knee, unspecified Body mass index (BMI) 36.0-36.9, adult Moderate anxiety- Primary Dysmenorrhea Morbid (severe) obesity due to excess calories (CMS/HCC) Moderate major depression (CMS/HCC) Major depressive disorder, single episode, moderate Acute cough- Primary [facility] Diagnosis Moderate anxiety- Primary Dysmenorrhea Morbid (severe) obesity due to excess calories (CMS/HCC) Moderate major depression (CMS/HCC) Major depressive disorder, single episode, moderate [facility]* Diagnosis Dysmenorrhea [facility]* Diagnosis Migraine without aura and without status migrainosus, not intractable (CMS/HCC)- Primary Class 1 obesity due to excess calories without serious comorbidity with body mass index (BMI) of 34.0 to 34.9 in adult Dysmenorrhea Well woman exam with routine gynecological exam- Primary Routine gynecological examination BMI 35.0-35.9,adult Breast lump on right side at 10 o'clock position Lump or mass in breast Left ankle swelling- Primary Effusion of ankle and foot joint Contusion of left knee, initial encounter BMI 35.0-35.9,adult Urinary tract infection without hematuria, site unspecified- Primary Sprain of left ankle, unspecified ligament, sequela BMI 35.0-35.9,adult Encounter for control pills maintenance Surveillance of previously prescribed contraceptive pill Anxiety and depression (CMS/HCC)- Primary Sprain of left ankle, unspecified ligament, sequela Class 2 obesity due to excess calories without serious comorbidity with body mass index (BMI) of 36.0 to 36.9 in adult Anxiety and depression (CMS/HCC)- Primary Morbid (severe) obesity due to excess calories (CMS/HCC) Osteoarthritis of knee, unspecified Body mass index (BMI) 36.0-36.9, adult Moderate anxiety- Primary Dysmenorrhea Morbid (severe) obesity due to excess calories (CMS/HCC) Moderate major depression (CMS/HCC) Major depressive disorder, single episode, moderate Migraine without aura and without status migrainosus, not intractable (CMS/HCC)- Primary Major depressive disorder, single episode, moderate (HCC) (CMS/HCC) Major depressive disorder, single episode, moderate Morbid (severe) obesity due to excess calories (CMS/HCC) Moderate anxiety [facility] Diagnosis Migraine without aura and without status migrainosus, not intractable (CMS/HCC)- Primary Class 1 obesity due to excess calories without serious comorbidity with body mass index (BMI) of 34.0 to 34.9 in adult Dysmenorrhea Well woman exam with routine gynecological exam- Primary Routine gynecological examination BMI 35.0-35.9,adult Breast lump on right side at 10 o'clock position Lump or mass in breast Left ankle swelling- Primary Effusion of ankle and foot joint Contusion of left knee, initial encounter BMI 35.0-35.9,adult Urinary tract infection without hematuria, site unspecified- Primary Sprain of left ankle, unspecified ligament, sequela BMI 35.0-35.9,adult Encounter for control pills maintenance Surveillance of previously prescribed contraceptive pill Anxiety and depression (CMS/HCC)- Primary Sprain of left ankle, unspecified ligament, sequela Class 2 obesity due to excess calories without serious comorbidity with body mass index (BMI) of 36.0 to 36.9 in adult Anxiety and depression (CMS/HCC)- Primary Morbid (severe) obesity due to excess calories (CMS/HCC) Osteoarthritis of knee, unspecified Body mass index (BMI) 36.0-36.9, adult Moderate anxiety- Primary Dysmenorrhea Morbid (severe) obesity due to excess calories (CMS/HCC) Moderate major depression (CMS/HCC) Major depressive disorder, single episode, moderate Migraine without aura and without status migrainosus, not intractable (CMS/HCC)- Primary Major depressive disorder, single episode, moderate (HCC) (CMS/HCC) Major depressive disorder, single episode, moderate Morbid (severe) obesity due to excess calories (CMS/HCC) Moderate anxiety Herpesviral infection, unspecified Dysmenorrhea documented in this encounter [facility]* Diagnosis Migraine without aura and without status migrainosus, not intractable (CMS/HCC)- Primary Class 1 obesity due to excess calories without serious comorbidity with body mass index (BMI) of 34.0 to 34.9 in adult Dysmenorrhea Well woman exam with routine gynecological exam- Primary Routine gynecological examination BMI 35.0-35.9,adult Breast lump on right side at 10 o'clock position Lump or mass in breast Left ankle swelling- Primary Effusion of ankle and foot joint Contusion of left knee, initial encounter BMI 35.0-35.9,adult Urinary tract infection without hematuria, site unspecified- Primary Sprain of left ankle, unspecified ligament, sequela BMI 35.0-35.9,adult Encounter for control pills maintenance Surveillance of previously prescribed contraceptive pill Anxiety and depression (CMS/HCC)- Primary Sprain of left ankle, unspecified ligament, sequela Class 2 obesity due to excess calories without serious comorbidity with body mass index (BMI) of 36.0 to 36.9 in adult Anxiety and depression (CMS/HCC)- Primary Morbid (severe) obesity due to excess calories (CMS/HCC) Osteoarthritis of knee, unspecified Body mass index (BMI) 36.0-36.9, adult Moderate anxiety- Primary Dysmenorrhea Morbid (severe) obesity due to excess calories (CMS/HCC) Moderate major depression (CMS/HCC) Major depressive disorder, single episode, moderate Migraine without aura and without status migrainosus, not intractable (CMS/HCC)- Primary Major depressive disorder, single episode, moderate (HCC) (CMS/HCC) Major depressive disorder, single episode, moderate Morbid (severe) obesity due to excess calories (CMS/HCC) Moderate anxiety Acute non-recurrent maxillary sinusitis- Primary Morbid (severe) obesity due to excess calories (CMS/HCC) Migraine without aura and without status migrainosus, not intractable (CMS/HCC) BMI 35.0-35.9,adult documented in this encounter [facility]* Diagnosis Migraine without aura and without status migrainosus, not intractable (CMS/HCC)- Primary Class 1 obesity due to excess calories without serious comorbidity with body mass index (BMI) of 34.0 to 34.9 in adult Dysmenorrhea Well woman exam with routine gynecological exam- Primary Routine gynecological examination BMI 35.0-35.9,adult Breast lump on right side at 10 o'clock position Lump or mass in breast Left ankle swelling- Primary Effusion of ankle and foot joint Contusion of left knee, initial encounter BMI 35.0-35.9,adult Urinary tract infection without hematuria, site unspecified- Primary Sprain of left ankle, unspecified ligament, sequela BMI 35.0-35.9,adult Encounter for control pills maintenance Surveillance of previously prescribed contraceptive pill Anxiety and depression (CMS/HCC)- Primary Sprain of left ankle, unspecified ligament, sequela Class 2 obesity due to excess calories without serious comorbidity with body mass index (BMI) of 36.0 to 36.9 in adult Anxiety and depression (CMS/HCC)- Primary Morbid (severe) obesity due to excess calories (CMS/HCC) Osteoarthritis of knee, unspecified Body mass index (BMI) 36.0-36.9, adult Moderate anxiety- Primary Dysmenorrhea Morbid (severe) obesity due to excess calories (CMS/HCC) Moderate major depression (CMS/HCC) Major depressive disorder, single episode, moderate Migraine without aura and without status migrainosus, not intractable (CMS/HCC)- Primary Major depressive disorder, single episode, moderate (HCC) (CMS/HCC) Major depressive disorder, single episode, moderate Morbid (severe) obesity due to excess calories (CMS/HCC) Moderate anxiety Acute non-recurrent maxillary sinusitis- Primary Morbid (severe) obesity due to excess calories (CMS/HCC) Migraine without aura and without status migrainosus, not intractable (CMS/HCC) BMI 35.0-35.9,adult Migraine without aura and without status migrainosus, not intractable (CMS/HCC)- Primary [facility] N[facility] - Reported* Type Description Date Surgical History laparoscopy Knees Right and Lef t Hospitalization History Childbirth Natural x4 [employer] Other History general Narrative - Reported* Type Description Date Medical History herpes Surgical History laparoscopy Knees Right and Lef t Surgical History cholecystectomy Surgical History appendectomy Surgical History right thumb\ Hospitalization History Childbirth Natural x4 [employer] Other Assessments Diagnosis 27 weeks gestation of [...] Documents on File Type Date Recorded Patient Commercial Attache Expl anation Advance Directives and Living Will Power of Community Liaison Latest Code Status on File Code Status [...] Documents on File Type Date Recorded Patient Commercial Attache Expl anation ACP-Advance Directive ACP-Power of Community Liaison Latest Code Status on File Code Status [...] Date/ Time Advance Directives Yes March 4:11pm Advance Directive Response Recorded Date/ Time Advance Directives Yes March 5:11pm Discharge Instructions * Instructions* Alondra Flores RN - 12/06/2018 OUTPATIENT DISCHARGE Jennifer Calvert [facility] [place] [address]. Galan Freya Husain [facility] Anahy Mahmood [facility] Dr. Mira Hagen Freya Conde [facility] ACTIVITY LIMITATIONS: ( z )Up and [...] with your OB doctor as specified. [facility] OB Department phone: Dr. Danis Russo [facility] [facility] Dr. Pete Fischer CNM [address] [facility] [address] [place] [facility] [place] DIET Eat a well balanced diet focusing on foods high in fiber and protein. Drink plenty of fluids especially water. To avoid constipation you may take a mild stool softener as recommended by your doctor or sld teacher. ACTIVITY Gradually increase your activity. Resume exercise regimen only after advice by your doctor or sld teacher. Avoid lifting anything heavier than a gallon of milk for SIX weeks. Avoid driving until your doctor or sld teacher has given their approval. Rise slowly from [...] of harming yourself or your . If will not stop crying, contact another [...] medications as recommended by your doctor or sld teacher for pain If you develop a warm, [...] vitamins as directed by your doctor or sld teacher. Refer to the booklet in the folder/binder for more information. If you feel you need more assistance or have questions, please call Gia Walton IBCLC, mental health consultant, at or the OB department to [...] calf. documented in this encounter* Instructions* Kika Corey, CORRINE - 10/17/2018 Outpatient Instructions for IM or Subcutaneous Injections [address] [place] [address] You are advised to carry out the [...] RN - 12/04/2018 OUTPATIENT DISCHARGE Jennifer Calvert [facility] or Jluis Freya Husain [facility] ACTIVITY LIMITATIONS: ( X )Up and [...] Unknown History of Present Illness * Amaya Russo APRN - CNM - 12/23/2018 10:18 AM EDT [...] rate: Baseline Heart Rate: 140 Accelerations: present Fpc Variability: moderate Decelerations: absent Contraction frequency: 2 [...] the referral. Education session duration: 70 minutes; ([id number]). Reminder to ordering Physician/Provider: Diabetes and CKD (non-dialysis) patients may have 2 hours of MNT education in subsequent years. Hours can be spread over any number of visits. documented in this encounter* Amaya Russo APRN - CNM - 12/04/2018 12:26 PM EDT Dx 34 weeks Hypertension NST reactive documented in this encounter Chief Complaint and Reason for Visit Chief Complaint throat pain cough, vomiting,headache Reason for Visit Contact with and (ortega spected) exposure to covid-19 COVID-19 Sore throat Streptococcal pharyngitis Influenza A (H1N1) Chief Complaint throat pain cough, vomiting,headache Left ankle pain Reason for Visit Contact with and (ortega spected) exposure to covid-19 COVID-19 Sore throat Streptococcal pharyngitis Influenza A (H1N1) Injury Chief Complaint throat pain cough, vomiting,headache Left ankle pain Reason for Visit Contact with and (ortega spected) exposure to covid-19 COVID-19 Sore throat Streptococcal pharyngitis Influenza A (H1N1) Injury Left ankle sprain Additional Source Comments Reason for Visit (unrecogniz ed section and content) Reason Comments Constipation Reason Comments Scheduled Induction Status Reason Specialty Diagnoses / Procedures Referre d By Contact Referred To Contact Diagnoses High blood pressure Amaya Russo APRN - CNAurelio [address] [place] [address] [facility] Reason Comments Gestational Diabetes Status Reason Specialty Diagnoses / Procedures Referred By Contact Referred To Contact Open Specialty Services Required Diabetes Services Diagnoses Abnormal GTT (glucose tolerance test) Amaya Russo APRN - CNM [address] [place] [address] [facility] Diabetic Education [address] [place] [address] Reason Comments Hypertension Reason Onset Date Comments Med Refill 11/10/2023 Reason Comments Med Change Request Reason Comments Weight Gain Reason Comments Med Refill INFORMATION SOURCE (unrecogn ized section and content) DATE CREATED AUTHOR 01/04/2020 [facility] DATE CREATED AUTHOR AUTHOR'S ORGANIZ ATION 07/03/2022 [facility] DATE CREATED AUTHOR AUTHOR'S ORGANIZ ATION 06/23/2023 [facility] DATE CREATED AUTHOR AUTHOR'S ORGANIZ ATION 02/07/2024 [facility] DATE CREATED AUTHOR AUTHOR'S ORGANIZ ATION 04/11/2024 [facility] dical Specialists EPIC Care Teams (unrecognized sec tion and content) Air Gun Operator Relationship Specialty Start Date End Date Benji Hinojosa MD [address] [place] [address] PCP - General Cardiology 07/30/22 Kika Guaman NP [address] [place] [address] Referring Physician Nurse Practitioner 07/30/22 Team Status: Active Member Role Status Dates Kika Guaman Primary Care Provider Active Team Status: Inactive Member Role Status Dates Kika Guaman Primary Care Provider Active Sta rt: April 07, 2023 End: April 07, 2023 Barbara Zhu APRN Attending Provider Active Start: April 07, 2023 End: April 07, 2023 Team Status: Inactive Member Role Status Dates Kika Barraza Concepciónfannyvamsi Primary Care Provider Active Sta rt: May 05, 2023 End: May 05, 2023 Barbara Zhu APRN Attending Provider Active Start: May 05, 2023 End: May 05, 2023 Team Status: Inactive Member Role Status Dates Kika Christi Guaman Primary Care Provider Active Sta rt: June 16, 2023 End: June 16, 2023 Barbara Zhu APRN Attending Provider Active Start: June 16, 2023 End: June 16, 2023 Team Status: Active Member Role Status Dates Kika Guaman Primary Care Provider Active Sta rt: June 16, 2023 Barbara Zhu APRN Attending Provider Active Start: June 16, 2023 Air Gun Operator Relationship Specialty Start Date End Date Benji Hinojosa MD [address] [place] [phone] PCP - General Family Medicine 06/23/23 12/05/23 Unallocated, Noms MD [address] [address] PCP - General Family Medicine 12/06/23 Kika Guaman NP Referring Physician Nurse Practitioner 07/30/22 Kika Guaman NP [address] [place] [address] Nurse Practitioner Family Medicine 06/23/23 Air Gun Operator Relationship Specialty Start Date End Date Benji Hinojosa MD [address] [place] [phone] PCP - General Family Medicine 12/22/23 Kika Guaman NP Referring Physician Nurse Practitioner 07/30/22 Kika Guaman NP [address] [place] [phone] Nurse Practitioner Family Medicine 06/23/23 Air Gun Operator Relationship Specialty Start Date End Date Benji Hinojosa MD [address] [place] [address] PCP - General Family Medicine 06/23/23 Kika Guaman NP Referring Physician Nurse Practitioner 07/30/22 Kika Guaman NP [address] [place] [phone] Nurse Practitioner Family Medicine 06/23/23 Air Gun Operator Relationship Specialty Start Date End Date Benji Hinojosa MD [address] [place] [phone] PCP - General Family Medicine 06/23/23 Kika Guaman NP Referring Physician Nurse Practitioner 07/30/22 Kika Guaman NP [address] [place] [phone] Nurse Practitioner Family Medicine 06/23/23 Air Gun Operator Relationship Specialty Start Date End Date Benji Hinojosa MD [address] [place] [phone] PCP - General Family Medicine 06/23/23 Kika Guaman NP Referring Physician Nurse Practitioner 07/30/22 Kika Guaman NP [address] [place] [address] Nurse Practitioner Family Medicine 06/23/23 Air Gun Operator Relationship Specialty Start Date End Date Benji Hinojosa MD [address] [place] [phone] PCP - General Family Medicine 12/22/23 Kika Guaman NP Referring Physician Nurse Practitioner 07/30/22 Kika Guaman NP [address] [place] [phone] Nurse Practitioner Family Medicine 06/23/23 Air Gun Operator Relationship Specialty Start Date End Date Benji Hinojosa MD [address] [place] [phone] PCP - General Family Medicine 12/22/23 Kika Guaman NP Referring Physician Nurse Practitioner 07/30/22 Kika Guaman NP [address] [place] [phone] Nurse Practitioner Family Medicine 06/23/23 Air Gun Operator Relationship Specialty Start Date End Date Benji Hinojosa MD [address] [place] [phone] PCP - General Family Medicine 12/22/23 Kika Guaman NP Referring Physician Nurse Practitioner 07/30/22 Kika Guaman NP [address] [place] [phone] Nurse Practitioner Family Medicine 06/23/23 Air Gun Operator Relationship Specialty Start Date End Date Benji Hinojosa MD [address] [place] [phone] PCP - General Family Medicine 12/22/23 Kika Guaman NP Referring Physician Nurse Practitioner 07/30/22 Kika Guaman NP [address] [place] [phone] Nurse Practitioner Family Medicine 06/23/23 Air Gun Operator Relationship Specialty Start Date End Date Benji Hinojosa MD [address] [place] [phone] PCP - General Family Medicine 12/22/23 Kika Guaman NP Referring Physician Nurse Practitioner 07/30/22 Kika Guaman NP [address] [place] [address] Nurse Practitioner Family Medicine 06/23/23 Air Gun Operator Relationship Specialty Start Date End Date Benji Hinojosa MD [address] [place] [phone] PCP - General Family Medicine 12/22/23 Kika Guaman NP Referring Physician Nurse Practitioner 07/30/22 Kika Guaman NP [address] [place] [phone] Nurse Practitioner Family Medicine 06/23/23 Air Gun Operator Relationship Specialty Start Date End Date Benji Hinojosa MD [address] [place] [phone] PCP - General Family Medicine 12/22/23 Kika Guaman NP Referring Physician Nurse Practitioner 07/30/22 Kika Guaman NP [address] [place] [address] Nurse Practitioner Family Medicine 06/23/23 Air Gun Operator Relationship Specialty Start Date End Date Benji Hinojosa MD [address] [place] [phone] PCP - General Family Medicine 12/22/23 Kika Guaman NP Referring Physician Nurse Practitioner 07/30/22 Kika Guaman NP [address] [place] [address] Nurse Practitioner Family Medicine 06/23/23 Goals (unrecognized section and content) Goals may [...] BE BASED ON THE PRIMARY CLINICAL RECORDS. [employer] provides no warranty or guarantee of the accuracy or completeness of information in this document.
[2024-05-10 09:13] LABS: Bilirubin Urine NEGATIVE (NEGATIVE); Blood Urine NEGATIVE (NEGATIVE); Clarity Urine CLEAR (CLEAR); Color Urine LT. YELLOW (YELLOW); Glucose Urine UA NEGATIVE (NEGATIVE); Ketones Urine NEGATIVE (NEGATIVE); Leukocyte Esterase Urine SMALL (NEGATIVE); Nitrite Urine NEGATIVE (NEGATIVE); Protein Urine NEGATIVE (NEG/TRACE); Specific Gravity Urine 1.015 (1.005-1.025); Urobilinogen Urine 0.2 EU/dL (0.2-1.0)
[2024-05-10 09:16] LABS: Urine Microscopic Indicated YES
[2024-05-10 09:31] LABS: Free T4 0.87 ng/dL (0.76-1.46)
[2024-05-10 09:37] LABS: Alanine Aminotransferase 15 U/L (14-59); Albumin Level 3.5 g/dL (3.4-5.0); Alkaline Phosphatase 75 U/L (46-116); Anion Gap 11.1; Aspartate Amino Transferase 12 U/L (15-37); BUN Creatinine Ratio 7.1; Bilirubin Total 0.4 mg/dL (0.2-1.0); Calcium 9.3 mg/dL (8.5-10.1); Carbon Dioxide 29.5 mmol/L (21.0-32.0); Chloride 106 mmol/L (98-107); Chol HDL Ratio 3.9; Cholesterol 178 mg/dL (<=200); Estimated GFR (African America >60 (>=60 mL/min/1.73m^2); Estimated GFR (Non-African Ame >60 (>=60 mL/min/1.73m^2); Globulin 3.5 g/dL; Glucose 95 mg/dL (74-106); HDL Cholesterol 46 mg/dL (40-60); Potassium 3.6 mmol/L (3.5-5.1); Sodium 143 mmol/L (136-145); Thyroid Stimulating Hormone 3.503 uIU/mL (0.358-3.740); Triglycerides 173 mg/dL (<=150); VLDL CHOLESTEROL 34.6 mg/dL
[2024-05-10 10:34] LABS: Bacteria Urine LARGE #/HPF (NONE SEEN); Cast Seen? NONE SEEN #/LPF (NONE SEEN); Crystals Seen? None Seen #/HPF (None Seen); Mucus Urine NONE SEEN (NONE SEEN); RBC Urine 0-2 #/HPF (0-2); Squamous Epithelial Cell Urine MANY #/LPF (NONE/RARE)
[2024-05-11 04:07] LABS: Vitamin B12 302 pg/mL (232-1245)
== END 2024-05-10 08:30 | disposition home or self-care (01) ==
LOC: LAB 08:31
PROVIDERS: PCP Nurse Practitioner; Visit Provider Nurse Practitioner
DX: E66.01 Morbid (severe) obesity due to excess calories (principal); R53.82 Chronic fatigue, unspecified; F32.1 Major depressive disorder, single episode, moderate; F41.9 Anxiety disorder, unspecified
CPT/HCPCS: 36415; 80053; 80061; 81001; 82607; 83540; 84439; 84443; 85025

== ENCOUNTER 2024-06-10 18:35 | Emergency (ER) | payer OTHER, SELFPAY ==
[2024-06-10 18:41] VITALS: BP 155/94; PULSE 84; TEMP 36.5; O2SAT 98; BMI 34.0
--- OUTSIDE RECORDS SUMMARY | 2024-06-10 18:43 | XMS_ITS | CCD ---
Author Organization [facility] Care Team Providers Care Diamond Setter Name Role Phone Unavailable Primary Care Provider Unavailbud e Kika Guaman Primary Care Provider [phone] Kika Guaman Primary Care Provider POOL, AMAYA E Referring Unavailable DENIZ KIKA J. Primary Care Unavailable POOL, AMAYA E Referring Unavailable CONCEPCIÓNHHOLYoni KIKA J. Primary Care Unavailable POOL, AMAYA E Referring Unavailable CONCEPCIÓNHFELIPE KIKA J. Primary Care Unavailable POOL, AMAYA E Referring Unavailable DENIZ KIKA J. Primary Care Unavailable POOL, AMAYA E Referring Unavailable DENIZ KIKA J. Primary Care Unavailable Fatimah Guamana Larry Primary Care Provider [phone] Katiuska Ho Unavailable Barbara Zhu Unavailable AICHHOLZ, PHOTOLITH OPERATOR KIKA Primary Care Unavailable CAROLINA, DR JOSSY Tran Admitting Unavailbud FIGUEROA, DR JOSSY Tran Attending Unavailbud e ALLYSSA ., KAROL Consulting Unavailable AICHHOLZ, PHOTOLITH OPERATOR KIKA Primary Care Unavailable DR VINCENZO FISCHER Admitting Unavailable LAWRENCE, DR VINCENZO Rahman Attending Unavailable DR VINCENZO FISCHER Consulting Unavailable AICHHOLZ, PHOTOLITH OPERATOR KIKA Admitting Unavailable AICHHOLZ, PHOTOLITH OPERATOR KIKA Attending Unavailable AICHHOLZ, PHOTOLITH OPERATOR KIKA Primary Care Unavailable AICHHOLZ, PHOTOLITH OPERATOR KIKA Consulting Unavailable RONALD JOHN Consulting Unavailable AICHHOLZ, PHOTOLITH OPERATOR KIKA Admitting Unavailable AICHHOLZ, PHOTOLITH OPERATOR KIKA Attending Unavailable AICHHOLZ, PHOTOLITH OPERATOR KIKA Primary Care Unavailable AICHHOLZ, PHOTOLITH OPERATOR KIKA Consulting Unavailable AICHHOLZ, PHOTOLITH OPERATOR KIKA Admitting Unavailable AICHHOLZ, PHOTOLITH OPERATOR KIKA Attending Unavailable AICHHOLZ, PHOTOLITH OPERATOR KIKA Primary Care Unavailable AICHHOLZ, PHOTOLITH OPERATOR KIKA Consulting Unavailable AICHHOLZ, PHOTOLITH OPERATOR KIKA Admitting Unavailable AICHHOLZ, PHOTOLITH OPERATOR KIKA Attending Unavailable AICHHOLZ, PHOTOLITH OPERATOR KIKA Primary Care Unavailable AICHHOLZ, PHOTOLITH OPERATOR KIKA Consulting Unavailable AICHHOLZ, PHOTOLITH OPERATOR KIKA Primary Care Unavailable LAWRENCE, DR VINCENZO Rahman Admitting Unavailable LAWRENCE, DR VINCENZO Rahman Attending Unavailable LAWRENCE, DR VINCENZO Rahman Consulting Unavailable CABRERA, DR DEEJAY Rahman Consulting Unavailable MITCHELL ., RAJINDER Consulting Unavailable Aichholz SCREEN PRINTING SUPERVISOR, Kika Unavailable Ashish ARMSTRONG, Benji Primary Care Provider Aicrandy, Kika J Primary Care Provider [phone] LOUIE Zhu Attending Provider [phone] Barbara Zhu Attending Unavailable Barbara Zhu Admitting Unavailable Aichholz, Kika J Primary Care Unavailable Aichholz SCREEN PRINTING SUPERVISOR, Kika Unavailable Ashish ARMSTRONG, Benji Primary Care Provider Aichholyoni SCREEN PRINTING SUPERVISOR, Kika Unavailable Unallocated , Noms Provider [facility] migdalia Ashish ARMSTRONG, Benji Primary Care Provider Ashish ARMSTRONG, Benji Primary Care Provider AICHFELIPE, KIKA J Primary Care Unavailable MIKHAIL GASCA [...] KIKA Attending Unavailable AICHHOLZ, KIKA Attending Unavailable KIKA GUAMAN Attending Unavailable Medications Current Medications Medication Drug [...] F (38 C) or pain 1-10, Starting 12/22/18 at 0325 Maximum dose of acetaminophen is [...] 04/20/2024 Active Atogepant (Qulipta) 60 MG tablet (13 sources) Start: 04-10-2024 take 1 tablet by mouth once daily Atogepant (Qulipta) 60 MG tablet Indications: Migraine Take 60 mg by mouth Daily 30 tablet 3 04/10/2024 Active Start: 04-10-2024 End: 05-10-2024 take 1 tablet by mouth once daily Atogepant (Qulipta) 60 MG tablet Indications: Migraine Take 60 mg by mouth Daily 30 tablet 3 04/10/2024 05/10/2024 Active End: 04-10-2024 take 1 tablet by mouth once daily Atogepant (Qulipta) 60 MG tablet Indications: Migraine Take 60 mg by mouth Daily 04/10/2024 Discontinued (Reorder) take 1 tablet by once daily Atogepant (Qulipta) 60 MG tablet [...] oral solution (1 source) alpha-Adrenergic Agonist, Uncompetitive Y-zqoqtu-Q-asparta te Receptor Antagonist, Sigma-1 Agonist Start: 05-26-2021 take 10 mL by mouth every six hours Pseudoeph-Bromp hen-DM 30-2-10 MG/5ML 10 mL Orally every 6 hours for 5 days May, Active cephalexin 500 mg oral capsule (1 source) Cephalosporin Antibacterial Start: 05-23-2024 End: 05-30-2024 take 1 capsule by mouth in the morning cephalexin (Keflex) 500 MG capsule Indications: Urinary tract infection symptoms Take 1 capsule (500 mg) by mouth in the morning and 1 capsule (500 mg) before bedtime. Do all this for 7 days. 14 capsule 05/23/2024 05/30/2024 Active dextromethorphan hydrobromide 15 mg / guaiFENesin 400 mg / pseudoephedrine hydrochloride 60 mg oral tablet (3 sources) alpha-Adrenergic Agonist, Uncompetitive Y-pquubn-B-asparta te Receptor Antagonist, Sigma-1 Agonist Start: 05-05-2023 [...] mouth daily 3 packet 3 02/08/2019 Active FLUoxetine 20 mg oral capsule (5 sources) Serotonin Reuptake Inhibitor Start: 05-09-2024 End: 06-08-2024 take 1 capsule by mouth once daily FLUoxetine (PROzac) 20 MG capsule Indications: Major depressive disorder, single episode, moderate (HCC) (CMS/HCC) , Moderate anxiety Take 1 capsule (20 mg) by mouth Daily 30 capsule 1 05/09/2024 06/08/2024 Active Start: 09-28-2023 End: 11-09-2023 take 1 capsule by mouth once daily FLUoxetine (PROzac) 20 MG capsule Indications: Anxiety and depression (CMS/HCC) Take 1 capsule (20 mg) by mouth Daily 30 capsule 1 09/28/2023 11/09/2023 Discontinued fluticasone propionate 0.05 mg/actuat metered dose nasal [...] Active hydrOXYzine pamoate 25 mg oral capsule (17 sources) Antihistamine Start: 11-07-2023 take 1 capsule [...] w/FA-DHA ( Gummies) 0.18-25 MG chewable tablet (17 sources) Start: 2023 MV & Min w/FA-DHA [...] 28 days 2 mL 04/10/2024 05/08/2024 Active Semaglutide-Weight Management (Wegovy) 1.7 MG/0.75ML solution auto-injector (2 sources) Start: 05-09-2024 End: 06-06-2024 Semaglutide-Weight Management (Wegovy) 1.7 MG/0.75ML solution auto-injector Indications: Morbid (severe) obesity due to excess calories (CMS/HCC) , BMI 35.0-35.9,adult Inject 1.7 mg under the skin every 7 (seven) days for 28 days 3 mL 05/09/2024 06/06/2024 Active Semaglutide-Weight Management (Wegovy) 2.4 MG/0.75ML solution auto-injector (2 sources) Start: 05-09-2024 End: 06-06-2024 Semaglutide-Weight Management (Wegovy) 2.4 MG/0.75ML solution auto-injector Indications: Morbid (severe) obesity due to excess calories (CMS/HCC) , BMI 35.0-35.9,adult Inject 2.4 mg under the skin every 7 (seven) days for 28 days 3 mL 2 05/09/2024 06/06/2024 Active sertraline 50 mg oral tablet (15 [...] Start: 12-21-2018 End: 12-22-2018 lactated ringers infusion ondansetron 4 mg disintegrating oral tablet (4 [...] [Essential (primary) hypertension] Onset: 12-04-2018 12-04-2018 Chronic Genitourinary symptoms and ill-defined conditions (2 sources) Urinary symptoms ; Translations: [Unspecified symptoms and signs involving the genitourinary system] Onset: 05-23-2024 05-23-2024 Episodic Headache; including migraine (20 sources) Migraine without [...] 05-05-2023 Episodic Joint disorders and dislocations; trauma-related (19 sources) Derangement of left knee; Translations: [Unspecified internal derangement of left knee] Onset: 02-17-2023 02-17-2023 Chronic Menstrual disorders (20 sources) Amenorrhea; Translations: [Irregular periods] Onset: 02-23-2023 Chronic Mood disorders (20 sources) Moderate major depression ; Translations: [Major depressive disorder, single episode, moderate] Onset: 11-09-2023 Resolved: 2024 11-09-2023 Chronic Osteoarthritis (20 sources) Osteoarthritis of knee; Translations: [Osteoarthritis of knee, unspecified] Onset: 02-17-2023 02-17-2023 Chronic Other aftercare (1 source) Other 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 Onset: 02-04-2024 Urinary tract infections (20 sources) Urinary tract infection, site not specified; Translations: [Urinary tract infectious disease] Onset: 04-06-2022 Resolved: 05-23-2024 11-09-2023 Episodic Viral infection (20 sources) Anogenital herpesviral infection; [...] Translations: [INFECTION FOLLOWING PROC UNSP INIT] Onset: 11-03-2022 Episodic Contraceptive and procreative management (18 sources) Oral contraception status; Translations: [Encounter for [...] Resolved: 03-20-2016 03-20-2016 Episodic Malaise and fatigue (18 sources) Fatigue; Translations: [Other fatigue] Onset: 04-20-2023 04-20-2023 Episodic Nausea and vomiting (13 sources) Nausea and vomiting; Translations: [Nausea and vomiting during ] Onset: 01-22-2016 Resolved: 03-20-2016 03-20-2016 Episodic Nonmalignant breast conditions (19 sources) Breast lump; Translations: [Unspecified lump in the right breast, upper outer quadrant] Onset: 03-23-2023 03-23-2023 Episodic Other complications of (20 sources) Herpes in ; Translations: [Other viral diseases complicating , unspecified trimester] Onset: 01-10-2016 01-13-2016 Episodic Other connective tissue disease (19 sources) Pain of left calf; Translations: [Pain in left lower leg] Onset: 02-17-2023 Resolved: 09-28-2023 02-17-2023 Episodic Other gastrointestinal disorders (13 sources) Diarrhea; Translations: [Diarrhea in adult patient] Onset: 01-22-2016 Resolved: 03-20-2016 03-20-2016 Episodic Other gastrointestinal disorders (8 sources) Constipation; Translations: [Constipation during in third trimester] Onset: 12-05-2018 12-05-2018 Episodic Other lower respiratory disease (14 sources) Cough; Translations: [Acute cough] Onset: 01-21-2024 Resolved: 02-06-2024 01-21-2024 Episodic Other non-traumatic joint disorders (20 sources) Pain in left knee; Translations: [Pain in joint, lower leg] Onset: 06-01-2022 Resolved: 09-28-2023 Episodic Other non-traumatic joint disorders (18 sources) Swollen ankle region; Translations: [Effusion, left ankle] Onset: 06-23-2023 Resolved: 05-09-2024 06-23-2023 Episodic Other screening for suspected conditions [...] Resolved: 03-20-2016 03-20-2016 Episodic Residual codes; unclassified (17 sources) Non-smoker; Translations: [Other specified health status] Onset: 11-09-2023 Resolved: 02-06-2024 11-09-2023 Episodic Residual codes; unclassified (12 sources) Gestation period, 38 weeks; Translations: [38 weeks gestation of ] Onset: 02-09-2016 Resolved: 03-20-2016 03-20-2016 Sprains and strains (19 sources) Sprain of unspecified ligament of left ankle, initial encounter; Translations: [Sprain of ankle, unspecified site] Onset: 06-21-2023 Resolved: 05-09-2024 06-16-2023 Episodic Superficial injury; contusion (18 sources) Contusion of left knee; Translations: [Contusion of left knee, initial encounter] Onset: 06-23-2023 Resolved: 09-28-2023 09-28-2023 Episodic Unclassified (1 source) COUGH, UNSPECIFIED; Translations: [COUGH, UNSPECIFIED] Onset: 09-28-2021 Results Test Name Value Interpretation Reference Range Facility ALL CBC WITH AUTO DIFFon BASOPHILS ABSOLUTE AUTO 0 [facility] Basophils/100 WBC (Bld) 0.4 % 0.2 - 2.0 % [facility] Eosinophils/100 WBC (Bld) 2.7 % 0.9 - 7.0 % [facility] Erythrocyte distribution width (RBC) [Ratio] 11.9 % 11.0 - 15.0 % [facility] Hematocrit (Bld) [Volume fraction] 38.1 % 36.0 - 48.0 % [facility] Hemoglobin (Bld) [Mass/Vol] 13 g/dL 12.0 - 16.0 g/dL [facility] IMMATURE GRANULOCYTES ABS AUTO 0.02 [facility] Immature granulocytes/100 WBC (Bld) 0.3 % 0.0 - 0.5 % [facility] LYMPHOCYTES ABSOLUTE AUTO 1.6 [facility] Lymphocytes/100 WBC (Bld) 22.4 % 20.5 - 60.0 % [facility] MCH (RBC) [Entitic mass] 29.3 pg 26. 7 - 34.0 pg [facility] MCHC (RBC) [Mass/Vol] 34.1 g/dL 29.9 - 35.2 g/dL [facility] MCV (RBC) [Entitic vol] 86 fL 81.0 - 99.0 fL [facility] MONOCYTES ABSOLUTE AUTO 0.5 [facility] Monocytes/100 WBC (Bld) 6.7 % 1.7 - 12.0 % [facility] NEUTROPHILS ABSOLUTE AUTO 4.7 [facility] Neutrophils/100 WBC (Bld) 67.5 % 43.0 - 75.0 % [facility] Platelet mean volume (Bld) [Entitic vol] 11.3 fL 9.5 - 13.5 fL [facility] EO # 0.2 [facility] PLT 282 [facility] RBC 4.43 [facility] WBC 7 [facility] MR HEAD/BRAIN WO CONon 04-16 [place] [address] Magnetic Resonance Report Signed Patient: ROBLES YEN MR#: [id number] : 1985 Acct:[id number] Age/Sex: 39 / F ADM Date: 04/16/24 Loc: MRI Attending Dr: Kika Guaman NP Ordering Physician: Kika Guaman NP Date of Service: 04/16/24 Procedure(s): MR head/brain wo con Accession Number(s): [id number] cc: Kika Guaman NP [place] [address] Patient Name: ROBLES YEN MRN: [facility]:[id number] date: 1985 Sex: F Assigned Patient Location: MRI Current Patient Location: MRI Accession/Order Number: [id number] Exam Date: 04/16/2024 15:32 Report Date: 04/16/2024 [...] Pascale Pena M.D.04/16/2024 3:55 PM Dictation Location: [place] [address] Electronically authenticated by: [id number] Y Date: 04/16/2024 15:55 Dictated By: Pascale Pena M.D. Signed By: 04/16/24 1557 DD/ 1555 TD/TT: Electronic Page Makeup System Operator: [facility] Radiology, Radiologist, MD - 04/16/2024 [place] [address] Magnetic Resonance Report Signed Patient: ROBLES YEN MR#: [id number] : 1985 Acct:[id number] Age/Sex: 39 / F ADM Date: 04/16/24 Loc: MRI Attending Dr: Kika Guaman NP Ordering Physician: Kika Guaman NP Date of Service: 04/16/24 Procedure(s): MR head/brain wo con Accession Number(s): [id number] cc: Kika Guaman NP [facility] [place] [address] Patient Name: ROBLES YEN MRN: [facility]:[id number] date: 1985 Sex: F Assigned Patient Location: MRI Current Patient Location: MRI Accession/Order Number: [id number] Exam Date: 04/16/2024 15:32 Report Date: 04/16/2024 [...] Pascale Pena M.D.04/16/2024 3:55 PM Dictation Location: [place] [address] Electronically authenticated by: [id number] Y Date: 04/16/2024 15:55 Dictated By: Pascale Pena M.D. Signed By: 04/16/24 1557 DD/ 54 TD/TT: Electronic Page Makeup System Operator: [facility] Radiology Study observation (narrative) [facility] MR HEAD/BRAIN WO CONOrdered By: Radiologist Radiology on 04-16-2024 [facility] Work Phone: XR HAND LT MIN 3 [...] Raphael MD on 02/04/2024 5:20 PM Normal [facility] XR ankle LT min 3V*on 2023 XR ankle LT min 3V* [facility] [place] [address] [place] [address] XRay Report Signed Patient: Robles Yen MR#: [id number] : 1985 Acct:[id number] Age/Sex: 38 / F ADM Date: 06/16/23 Loc: XDUCLY Room: Type: [facility] Attending Dr: Barbara Zhu APRN Copies to: [...] Pascale Pena M.D.06/16/2023 4:55 PM Dictation Location: [place] [address] Transcribed By: [facility] 06/16/23 1655 Dictated By: Pascale Pena MD 06/16/23 165 Signed By: 06/16/23 1655 Normal [facility] Influenza virus B Ag [Presen ce] in Upper respiratory specimen by Rapid immunoassayon 05-05-2023 FLUBV Ag IA.rapid Ql (Nph) Negative [facility] No Panel Informationon 05-04 Influenza Type A (Rapid) Positive [facility] POC SARS CoV-2 Antigen Negative [facility] - Microbiology an d Antimicrobial susceptibilityOrdered By: Barbara Zhu on 04-07-2023 SARS-CoV-2 (COVID-19) RNA GERALDINE+probe Ql (Unsp spec) [facility] No Panel InformationOrdered By: Barbara Zhu on 04-07-2023 Quick Strep (POC) [facility] Quick Strep (POC) [facility] IGP,APTIMA HPV,AGE GDLNon AGE GDLN ACOG TESTING Note . [facility] Comment on above: TESTS RESULT FLAG UN ITS REF RANGE LAB Clinician Provided Cytology Information Source.............Cervix;Endocervix No. of containers..01 ThinPrep Vial Age Algo ACOG Orin... FLAG LEGEND: L-Low Normal,H-High Normal,LL-Alert Low,HH-Alert High <-Panic Low,>-Panic High,A-Abnormal,AA-Critical Abnormal Performed at: 01 =[address] [place] [address] Verenice Minaya MD, HPV APTIMA Negative Negative [facility] Comment on above: This nucleic acid am plification test detects fourteen high- risk HPV types (16,18,31,33,35,39,45,51,52,56,58,59,66,68) without differentiation. Performed at: =[address] [id number] Manager New Product: Verenice Minaya MD, Phone: [phone] Performed at: [address] [place] [address] [id number] Manager New Product: Verenice Minaya MD, Phone: [phone] IGP, APTIMA HPV, RFX 16/18,45 Note . [facility] Comment on above: TESTS RESULT FLAG UN ITS REF RANGE LAB DIAGNOSIS: 02 NEGATIVE FOR INTRAEPITHELIAL LESION OR MALIGNANCY. CELLULAR CHANGES ASSOCIATED WITH INFLAMMATION ARE PRESENT. Specimen adequacy: 02 Satisfactory for evaluation. No endocervical component is identified. Performed by: 02 Lori Howard, Oracle Engineer (ASC) . 02 Note: Note 02 The [...] <-Panic Low,>-Panic High,A-Abnormal,AA-Critical Abnormal Performed at: [address] [facility] [place] [address] Verenice Minaya MD, BROOM-ALONE CERVIX ENDOCERVIX [facility] MRI KNEE LT WO CONon 023 [...] RONALD JOHN Date: 2022-06-01 13:03 Normal [facility] CULTURE URINEon 04-07-2022 CULTURE URINE Isolate 1 [...] Trimethoprim/Sulfa methoxazole <=20 S F Normal [facility] Comment on above: Performed By: #### C VDTB #### [facility] [address] [place] [address] Dr. Latanya Donis ER URINE PROFILEon 3 Bilirubin Ql (U) Negative Normal NEGATIVE [facility] Comment on above: Performed By: #### E STEFANIA BOYLERO #### [facility] [address] [place] [address] Dr. Latanya Donis Clarity (U) CLEAR Normal CLEAR [facility] Comment on above: Performed By: #### E STEFANIA BOYLERO #### [facility] [address] [place] [address] Dr. Latanya Donis Color (U) BROWN Abnormal YELLOW [facility] Comment on above: Performed By: #### E RUR, UMICRO #### [facility] [address] [place] [address] Dr. Latanya DUTTON A micrscopic examination will be performed if indicated. Normal [facility] Comment on above: Performed By: #### Arti BOYLE UMICRO #### [facility] [address] [place] [address] Dr. Latanya Donis Glucose Ql (U) Negative Normal NEGATIVE [facility] Comment on above: Performed By: #### Arti BOYLE UMICRO #### [facility] [address] [place] [address] Dr. Latanya Donis Hemoglobin Ql (U) LARGE Abnormal NEGATIVE [facility] Comment on above: Performed By: #### Arti BOYLE UMICRO #### [facility] [address] [place] [address] Dr. Latanya Donis Ketones Ql (U) Negative Normal NEGATIVE [facility] Comment on above: Performed By: #### Arti BOYLE UMICRO #### [facility] [address] [place] [address] Dr. Latanya Donis LEUKOCYTES MODERATE Abnormal NEGATIVE [facility] Comment on above: Performed By: #### STEFANIA LUNARO #### [facility] [address] [place] [address] Dr. Latanya Donis Nitrite Ql (U) Positive Abnormal NEGATIVE [facility] Comment on above: Performed By: #### Arti BOYLE UMICRO #### [facility] [address] [place] [address] Dr. Latanya Donis pH (U) 5.5 [pH] Normal 5-9 [facility] Comment on above: Performed By: #### ARVIND LUNAICRO #### [facility] [address] [place] [address] Dr. Latanya Donis Protein (U) [Mass/Vol] 100 mg/dL Abnormal NEGAT SHADIA/ TRACE [facility] Comment on above: Performed By: #### STEFANIA LUNARO #### [facility] [address] [place] [address] Dr. Latanya Donis SPEC GRAVITY 1.025 Normal 1.005-<=1.025 [facility] Comment on above: Performed By: #### ARVIND LUNAICRO #### [facility] [address] [place] [address] Dr. Latanya Donis UR MICRO IND INDICATED Normal [facility] Comment on above: Performed By: #### Arti BOYLE UMICRO #### [facility] [address] [place] [address] Dr. Latanya Donis Urobilinogen Qn (U) 1.0 {Hanny'U}/dL Normal 0.2 - 1. 0 [facility] Comment on above: Performed By: #### Arti BOYLE UMICRO #### [facility] [address] [place] [address] Dr. Latanya Donis URINE MICROSCOPIC ONLYon BACTERIA MODERATE Abnormal NONE SEEN [facility] Comment on above: Performed By: #### Arti BOYLE UMICRO #### [facility] [address] [place] [address] Dr. Latanya Donis Bacteria identified Cx Nom (U) INDICATED Normal [facility] Comment on above: Performed By: #### Arti BOYLE UMICRO #### [facility] [address] [place] [address] Dr. Latanya Donis CAST NONE SEEN Normal NONE SEEN [facility] Comment on above: Performed By: #### Arti BOYLE UMICRO #### [facility] [address] [place] [address] Dr. Latanya Donis Crystals LM Nom (Urine sed) NONE SEEN Normal NONE SEEN [facility] Comment on above: Performed By: #### Arti BOYLE UMICRO #### [facility] [address] [place] [address] Dr. Latanya Donis Epithelial cells LM Ql (Urine sed) NONE SEEN Normal NONE SEEN /RARE [facility] Comment on above: Performed By: #### Arti BOYLE UMICRO #### [facility] [address] [place] [address] Dr. Latanya Donis MUCOUS NONE SEEN Normal NONE SEEN [facility] Comment on above: Performed By: #### E CHATAR, UMICRO #### [facility] [address] [place] [address] [address] Latanya Donis RBC (U) [#/Vol] /uL Abnormal 0-2 [facility] Comment on above: Performed By: #### E RUR, UMICRO #### [facility] [address] [place] [address] [address] Latanya Donis WBC 5-10 Abnormal NONE SEEN [facility] Comment on above: Performed By: #### E RUR, UMICRO #### [facility] [address] [place], [place] [address] FACIAL BONES W [...] DEEJAY REES Date: 2021-12-22 22:26 Normal [facility] CBC AUTO DIFFon 12-22-2021 BASO # 0.0 103/ul Normal 0.0-0.1 [facility] Comment on above: Performed By: #### C BC #### [facility] [address] [place] [address] Dr. Latanya Donis Basophils/100 WBC (Bld) 0.3 % Normal 0.2-2.0 [facility] Comment on above: Performed By: #### C BC #### [facility] [address] [place] [address] Dr. Latanya Donis EO # 0.1 103/ul Normal 0.0-0.7 [facility] Comment on above: Performed By: #### C BC #### [facility] [address] [place] [address] Dr. Latanya Donis Eosinophils/100 WBC (Bld) 0.6 % Critically low 0.9-7.0 [facility] Comment on above: Performed By: #### C BC #### [facility] [address] [place] [address] Dr. Latanya Donis Erythrocyte distribution width (RBC) [Ratio] 12.2 % Normal 11.0-15.0 [facility] Comment on above: Performed By: #### C BC #### [facility] [address] [place] [address] Dr. Latanya Donis Hematocrit (Bld) [Volume fraction] 37.1 % Normal 36.0-48.0 [facility] Comment on above: Performed By: #### C BC #### [facility] [address] [place] [address] Dr. Latanya Donis Hemoglobin (Bld) [Mass/Vol] 12.5 g/dL Normal 12.0-16.0 [facility] Comment on above: Performed By: #### C BC #### [facility] [address] [place] [address] Dr. Latanya Donis IG # 0.03 10e3/ul Normal 0.00-0.03 [facility] Comment on above: Performed By: #### C BC #### [facility] [address] [place] [address] Dr. Latanya Donis IG % 0.3 % Normal 0.0-0.5 [facility] Comment on above: Performed By: #### C BC #### [facility] [address] [place] [address] Dr. Latanya Donis LYMPH # 1.6 103/ul Normal 1.2-3.8 [facility] Comment on above: Performed By: #### C BC #### [facility] [address] [place] [address] Dr. Latanya Donis Lymphocytes/100 WBC (Bld) 17.1 % Critically low 20.5-60.0 [facility] Comment on above: Performed By: #### C BC #### [facility] [address] [place] [address] Dr. Latanya Donis MANUAL DIFF REQ NO Normal [facility] Comment on above: Performed By: #### C BC #### [facility] [address] [place] [address] Dr. Latanya Donis MCH (RBC) [Entitic mass] 29.3 pg Normal 26.7-34.0 [facility] Comment on above: Performed By: #### C BC #### [facility] [address] [place] [address] Dr. Latanya Donis MCHC (RBC) [Mass/Vol] 33.7 g/dL Normal 29.9-35.2 [facility] Comment on above: Performed By: #### C BC #### [facility] [address] [place] [address] Dr. Latanya Donis MCV (RBC) [Entitic vol] 86.9 fL Normal 81.0-99.0 [facility] Comment on above: Performed By: #### C BC #### [facility] [address] [place] [address] Dr. Latanya Donis MONO # 0.8 103/ul Normal 0.3-0.8 [facility] Comment on above: Performed By: #### C BC #### [facility] [address] [place] [address] Dr. Latanya Donis Monocytes/100 WBC (Bld) 8.2 % Normal 1.7-12.0 [facility] Comment on above: Performed By: #### C BC #### [facility] [address] [address] [address] Latanya Donis NEUT # 7.0 103/ul Critically high 1.4-6.5 [facility] Comment on above: Performed By: #### C BC #### [facility] [address] [place] [address] Dr. Latanya Donis Neutrophils/100 WBC (Bld) 73.5 % Normal 43.0-75.0 [facility] Comment on above: Performed By: #### C BC #### [facility] [address] [place] [address] Dr. Latanya Donis Platelet mean volume (Bld) [Entitic vol] 11.4 fL Normal 9.5-13.5 [facility] Comment on above: Performed By: #### C BC #### [facility] [address] [place] [address] Dr. Latanya Donis PLT 266 103/ul Normal 150-450 [facility] Comment on above: Performed By: #### C BC #### [facility] [address] [place] [address] Dr. Latanya Donis RBC 4.27 106/ul Normal 4.20-5.40 [facility] Comment on above: Performed By: #### C BC #### [facility] [address] [place] [address] Dr. Latanya Donis WBC 9.5 103/ul Normal 4.0-11.0 [facility] Comment on above: Performed By: #### C BC #### [facility] [address] [place] [address] Dr. Latanya Donis CULTURE BLOODon 12-22-2021 Microscopic examination of blood, culture Culture Observations: NO GROWTH AT 5 DAYS. Normal [facility] Comment on above: Performed By: #### C VDTBH #### [facility] [address] [place] [address] Dr. Latanya Donis Microscopic examination of blood, culture Culture Observations: NO GROWTH AT 5 DAYS. Normal [facility] Comment on above: Performed By: #### C VDTBH #### [facility] [address] [address] [address] Latanya Donis PROF CHEM 8 (BAS METB)on Anion gap [Moles/Vol] 12.1 mmol/L Normal [facility] Comment on above: Performed By: #### B MP #### [facility] [address] [address] [address] Latanya Donis Calcium [Mass/Vol] 8.9 mg/dL Normal 8.5-10.1 [facility] Comment on above: Performed By: #### B MP #### [facility] [address] [address] [address] Latanya Donis Chloride [Moles/Vol] 107 mmol/L Normal 98-107 [facility] Comment on above: Performed By: #### B MP #### [facility] [address] [place] [address] Dr. Latanya Donis CO2 [Moles/Vol] 25.3 mmol/L Normal 21.0-32.0 [facility] Comment on above: Performed By: #### B MP #### [facility] [address] [place] [address] Dr. Latanya Donis Creatinine [Mass/Vol] 0.99 mg/dL Normal 0.55-1.02 [facility] Comment on above: Performed By: #### B MP #### [facility] [address] [place] [address] Dr. Latanya Donis EGFR-AF ANGOLAN >60 Normal >=60 [facility] Comment on above: Performed By: #### B MP #### [facility] [address] [place] [address] Dr. Latanya Donis EGFR-NON AF ANGOLAN >60 Normal >=60 [facility] Comment on above: Performed By: #### B MP #### [facility] [address] [place] [address] Dr. Latanya Donis Glucose [Mass/Vol] 94 mg/dL Normal 74-106 [facility] Comment on above: Performed By: #### B MP #### [facility] [address] [address] [address] Latanya Donis Potassium [Moles/Vol] 3.4 mmol/L Critically low 3.5-5.1 [facility] Comment on above: Performed By: #### B MP #### [facility] [address] [place] [address] Dr. Latanya Donis Sodium [Moles/Vol] 141 mmol/L Normal 136-145 [facility] Comment on above: Performed By: #### B MP #### [facility] [address] [place] [address] Dr. Latanya Donis Urea nitrogen [Mass/Vol] 11.0 mg/dL Normal 7.0-18.0 [facility] Comment on above: Performed By: #### B MP #### [facility] [address] [place] [address] Dr. Latanya Donis Urea nitrogen/Creatinine [Mass ratio] 11.1 mg/mg Normal [facility] Comment on above: Performed By: #### B MP #### [facility] [address] [place] [address] Dr. Latanya Donis CHLAMYDIA/GONOCOCCUS GERALDINE (SW AB/URINE/PAPon 10-13-2021 Chlamydia trachomatis, GERALDINE Negative Normal Negative [facility] Comment on above: Performed By: #### C VDTBH #### [facility] [address] [place] [address] Dr. Latanya Donis Neisseria gonorrhoeae, GERALDINE Negative Normal Negative [facility] Comment on above: Performed By: #### C VDTBH #### [facility] [address] [place] [address] Dr. Latanya Donis HEPATITIS PANEL, ACUTEon HBsAg Screen Negative Normal Negative [facility] Comment on above: Performed By: #### H EPACUT #### [facility] [address] [place] [address] Dr. Latanya Donis HCV AB <0.1 Normal 0.0-0.9 [facility] Comment on above: Performed By: #### H EPACUT #### [facility] [address] [place], [place] [id number] Dr. Latanya Donis Hep A Ab, IgM Negative Normal Negative [facility] Comment on above: Performed By: #### H EPACUT #### [facility] [address] [place] [address] Dr. Latanya Donis Hep B Core Ab, IgM Negative Normal Negative [facility] Comment on above: Performed By: #### H EPACUT #### [facility] [address] [address] [address] Latanya Donis Interpretation: Comment Normal [facility] Comment on above: Result Comment: Nega tive Not infected with HCV, unless recent infection is suspected or other evidence exists to indicate HCV infection. Performed By: #### H EPACUT #### [facility] [address] [place] [address] Dr. Latanya Donis HIV 1 AND 2 WITH REFLEXon HIV Screen 4th Generation wRfx Non-Reactive Normal Non Reactive [facility] Comment on above: Result Comment: HIV Negative HIV-1/HIV-2 antibodies and HIV-1 p24 antigen were NOT detected. There is no laboratory evidence of HIV infection. Performed By: #### H IV12 #### [facility] [address] [place] [address] Dr. Latanya Donis RPR QUANTon 10-10-2021 Rapid Plasma Reagin, Quant Non-Reactive Normal NonRea<1:1 [facility] Comment on above: Result Comment: Plea se Note: This test does not meet current guidelines for screening and diagnosis of syphilis. This test is intended for following treatment response in patients being treated for syphilis infection. To screen for syphilis infection, a reflex cascade that includes both RPR and a treponema-specific assay should be utilized, such as Treponema pallidum (Syphilis) Screening [place] (388463) or Rapid Plasma Reagin (RPR) Test With Reflex to Quantitative RPR and Confirmatory Treponema pallidum Antibodies (604563). Performed By: #### C VDTBH #### [facility] [address] [place] [address] Dr. Latanya Donis VAGINITIS/VAGINOSIS DNA PROB Kirill 10-10-2021 Delmy species Negative Normal Negative [facility] Comment on above: Performed By: #### V AGINT #### [facility] [address] [place] [address] Dr. Latanya Donis Gardnerella vaginalis Negative Normal Negative [facility] Comment on above: Performed By: #### V AGINT #### [facility] [address] [place] [address] Dr. Latanya Donis Trichomonas vaginalis Negative Normal Negative [facility] Comment on above: Performed By: #### V AGINT #### [facility] [address] [place] [address] Dr. Latanya Donis Covid-19 PCR (CVDTBH)on SARS-CoV-2 (COVID-19) RNA GERALDINE+probe Ql (Unsp spec) Detected Critically abnormal NOT DETECTED [facility] Comment on above: Result Comment: This test is not yet approved or cleared by the [place] FDA. When there are no FDA-approved or cleared tests available, and other criteria are met, FDA can make tests available under an emergency access mechanism called an Emergency Use Authorization (EUA). The EUA for this test is supported by the [place] of Health and Human Service's declaration that [...] used). Performed By: #### C VDTBH #### [facility] [address] [place] [address] Dr. Latanya Donis INSULINon 09-18-2021 Insulin 6.9 uIU/mL Normal 2.6-24.9 [facility] Comment on above: Performed By: #### I NSULIN #### [facility] [address] [place] [address] Dr. Latanya Donis FREE T4on 09-16-2021 Free T4 [Mass/Vol] 0.79 ng/dL Normal 0.76-1.46 [facility] Comment on above: Performed By: #### C VDTBH #### [facility] [address] [place] [address] Dr. Latanya Donis GLYCOHEMOGLOBIN A1Con 2021 ADA RECOMMENDATION SEE BELOW Normal [facility] Comment on above: Result Comment: ADA RECOMMENDED LIMIT 4.0 - 6.0 ADA THERAPEUTIC TARGET < 7.0 ACTION SUGGESTED > 7.0 Performed By: #### A 1C #### [facility] [address] [place] [address] Dr. Latanya Donis Glucose [Mass/Vol] 91 mg/dL Normal [facility] Comment on above: Performed By: #### A 1C #### [facility] [address] [place] [address] Dr. Latanya Donis HbA1c (Bld) [Mass fraction] 4.8 % Normal 4.5-6.2 [facility] Comment on above: Performed By: #### A 1C #### [facility] [address] [place] [address] Dr. Latanya Donis PROF CHEM 8 (BAS METB)on Anion gap [Moles/Vol] 10.0 mmol/L Normal [facility] Comment on above: Performed By: #### C VDTBH #### [facility] [address] [place] [address] Dr. Latanya Donis Calcium [Mass/Vol] 9.8 mg/dL Normal 8.5-10.1 [facility] Comment on above: Performed By: #### C VDTBH #### [facility] [address] [place] [address] Dr. Latanya Donis Chloride [Moles/Vol] 103 mmol/L Normal 98-107 [facility] Comment on above: Performed By: #### C VDTBH #### [facility] [address] [place] [address] Dr. Latanya Donis CO2 [Moles/Vol] 30.4 mmol/L Normal 21.0-32.0 [facility] Comment on above: Performed By: #### C VDTBH #### [facility] [address] [place] [address] Dr. Latanya Donis Creatinine [Mass/Vol] 0.92 mg/dL Normal 0.55-1.02 [facility] Comment on above: Performed By: #### C VDTBH #### [facility] [address] [place] [address] Dr. Latanya Donis EGFR-AF ANGOLAN >60 Normal >=60 [facility] Comment on above: Performed By: #### C VDTBH #### [facility] [address] [address] [address] Latanya Donis EGFR-NON AF ANGOLAN >60 Normal >=60 [facility] Comment on above: Performed By: #### C VDTBH #### [facility] [address] [place] [address] Dr. Latanya Donis Glucose [Mass/Vol] 93 mg/dL Normal 74-106 [facility] Comment on above: Performed By: #### C VDTBH #### [facility] [address] [place] [address] Dr. Latanya Donis Potassium [Moles/Vol] 4.4 mmol/L Normal 3.5-5.1 [facility] Comment on above: Performed By: #### C VDTBH #### [facility] [address] [place] [address] Dr. Latanya Donis Sodium [Moles/Vol] 139 mmol/L Normal 136-145 [facility] Comment on above: Performed By: #### C VDTBH #### [facility] [address] [place] [address] Dr. Latanya Donis Urea nitrogen [Mass/Vol] 11.0 mg/dL Normal 7.0-18.0 [facility] Comment on above: Performed By: #### C VDTBH #### [facility] [address] [place] [address] Dr. Latanya Donis Urea nitrogen/Creatinine [Mass ratio] 12.0 mg/mg Normal [facility] Comment on above: Performed By: #### C VDTBH #### [facility] [address] [place] [address] Dr. Latanya Donis TSHon 09-16-2021 TSH 1.496 uIU/mL Normal 0.358-3.740 [facility] Comment on above: Performed By: #### C VDTBH #### [facility] [id number] Latanya Donis COVID Quick Testingon 2020 Result Negative [facility] Other COVID Quick Testingon 2020 Result Negative [facility] Other Chlamydia/GC DNA, Uron 01-03 Chlamydia Probe, Ur Negative Normal NEG [facility] Comment on above: Result Comment: CHLA MYDIA [...] target. Performed By: #### U CGP #### [facility] [address] [place], [place] [id number] Manager New Product: Ezio Calvillo MD Gonorrhea Probe, Ur Negative Normal NEG [facility] Comment on above: Result Comment: NEIS SERIA [...] target. Performed By: #### U CGP #### [facility] [address] [place] [address] Manager New Product: Ezio Calvillo MD Cult,Urineon 01-04-2020 Cult,Urine Specimen Description .CLEAN CATCH URINE Special Requests NOT REPORTED Culture NO SIGNIFICANT GROWTH Report Status FINAL 01/04/2020 [facility] Comment on above: Performed By: #### P PPVP #### [address] [place] [address] Manager New Product: Ezio Calvillo MD Hemoglobin A1Con 01-04-2020 HbA1c (Bld) [Mass fraction] 4.8 % Normal 4.0-6.0 [facility] Comment on above: Performed By: #### A HCV, GLYHGB, HIVCMB #### [facility] [address] [place] [address] Manager New Product: Ezio Calvillo MD HbA1c (Bld) [Mass fraction] 91 mg/dL Normal [facility] Comment on above: Result Comment: The ADA and AACC recommend providing the estimated average glucose result to permit better patient understanding of their HBA1c result. Performed By: #### A HCV, GLYHGB, HIVCMB #### [address] [address] Manager New Product: Ezio Calvillo MD HIV Ag/Abon 01-03-2020 HIV Ag/Ab NONREACTIVE Normal NR [facility] Comment on above: Result Comment: No l aboratory evidence of HIV infection. If acute HIV infection is suspected, consider testing for HIV-1 RNA. Performed By: #### A HCV, GLYHGB, HIVCMB #### [facility] [address] [place] [address] Manager New Product: Ezio Calvillo MD Hep C Abon 01-03-2020 Hep C Ab NONREACTIVE Normal NR [facility] Comment on above: Result Comment: The [...] By: #### A HCV, GLYHGB, HIVCMB #### [facility] [address] [place] [phone] Manager New Product: Ezio Calvillo MD Profileon 0 T.pallidum Ab Screen NONREACTIVE Normal NR [facility] Comment on above: Result Comment: T. pallidum antibodies are not detected. There is no serological evidence of infection with T. pallidum (early primary syphilis cannot be excluded). Retest in 2-4 weeks if syphilis is clinically suspect. Performed By: #### P RENAT #### [address] [place] [address] Manager New Product: Ezio Calvillo MD [facility] [address] [place], [place] [address], [place] [id number] Manager New Product: Chase Glez MD Hep B Surf Ag NONREACTIVE Normal [facility] Comment on above: Performed By: #### P RENAT #### [address] [address] Manager New Product: Ezio Calvillo MD [facility] [address] [place] [address] [phone] Manager New Product: Chase Glez MD Rubella Ab, IgG 68.2 IU/mL [facility] Comment on above: Result Comment: REFERENCE RANGE: <5.0 NON-REACTIVE (non-immune) 5.0 TO 9.9 EQUIVOCAL >=10.0 REACTIVE (immune) Performed By: #### P RENAT #### [address] [address] Manager New Product: Ezio Calvillo MD [address] [phone] Manager New Product: Chase Glez MD HIV Screenon 01-02-2020 HIV Ag/Ab NONREACTIVE NONREACTIVE [place], [place] Comment on above: No laboratory eviden ce of HIV infection. If acute HIV infection is suspected, consider testing for HIV-1 RNA. Hepatitis C Antibodyon 01-01 Hepatitis C Ab NONREACTIVE NONREACTIVE [place], [place] Comment on above: The hepatitis C [...] ordering HCV RNA by PCR. PROFILE Ion 11--2 020 Basophils (Bld) [#/Vol] 0.03 10*3/uL [place] Basophils/100 WBC (Bld) 0 % 0 - 2 % M [place], [place] Differential Type NOT REPORTED [place] Eosinophils (Bld) [#/Vol] 0.12 10*3/uL [place] Eosinophils/100 WBC (Bld) 2 % 1 - 4 % [place] Erythrocyte distribution width (RBC) [Ratio] 12.4 % 11.8 - 14.4 % [place] Hematocrit (Bld) [Volume fraction] 41.5 % 36.3 - 47.1 % [place] Hemoglobin (Bld) [Mass/Vol] 13.5 g/dL 11.9 - 15.1 g/dL [place] Hepatitis B Surface Ag NONREACTIVE NONREACTIVE [place] Immature granulocytes (Bld) [#/Vol] 0 % 0 [place] Immature granulocytes (Bld) [#/Vol] 10*3/uL [place] Lymphocytes (Bld) [#/Vol] 2.14 10*3/uL [place] Lymphocytes/100 WBC (Bld) 28 % 24 - 43 % [place] MCH (RBC) [Entitic mass] 28.9 pg 25. 2 - 33.5 pg [place] MCHC (RBC) [Mass/Vol] 32.5 g/dL 28.4 - 34.8 g/dL [place] MCV (RBC) [Entitic vol] 88.9 fL 82.6 - 102.9 fL [place] Monocytes (Bld) [#/Vol] 0.63 10*3/uL [place] Monocytes/100 WBC (Bld) 8 % 3 - 12 % [place], [place] Platelet mean volume (Bld) [Entitic vol] 12.3 fL 8.1 - 13.5 fL [place] Platelets (Bld) [#/Vol] NOT REPORTED [place] Platelets (Bld) [#/Vol] 213 10*3/uL [place] RBC (Bld) [#/Vol] 4.67 10*6/uL 3.95 - 5.1 1 m/uL [place] RBC morphology finding Nom (Bld) NOT REPORTED [place] Rubella virus IgG Ql (S) 68.2 IU/mL [place] Comment on above: REFERENCE RANGE: <5.0 NON-REACTIVE (non-immune) 5.0 TO 9.9 EQUIVOCAL >=10.0 REACTIVE (immune) Segmented neutrophils/100 WBC (Bld) 62 % 36 - 65 % [place] Segs Absolute 4.69 [place] T. pallidum, IgG NONREACTIVE NONREACTIVE [place] Comment on above: T. pallidum antibodies are not detected. There is no serological evidence of infection with T. pallidum (early primary syphilis cannot be excluded). Retest in 2-4 weeks if syphilis is clinically suspect. WBC (Bld) [#/Vol] 7.6 10*3/uL [place] WBC (Bld) [#/Vol] 0.0 10*3/uL 0.0 per 10 0 WBC [place] WBC Morphology NOT REPORTED [place], [place] TYPE AND SCREENon 1 03-03-2019 ABO/Rh Negative [place] Profileon 0 Abs. Basophil 0.03 k/uL Normal 0.00-0.20 [facility] Comment on above: Performed By: #### P RENAT #### [facility] [address] [place] [address] Manager New Product: Ezio Calvillo MD [facility] [address] [place] [address] Manager New Product: Chase Glez MD Abs.Imm.Granulocyte <0.03 Normal 0.00-0.30 [facility] Comment on above: Performed By: #### P RENAT #### [address] [address] Manager New Product: Ezio Calvillo MD [address] [phone] Manager New Product: Chase Glez MD Abs.Neutrophil (Seg) 4.69 k/uL Normal 1.50-8.10 [facility] Comment on above: Performed By: #### P RENAT #### [address] [address] Manager New Product: Ezio Calvillo MD [address] [place] [phone] Manager New Product: Chase Glez MD Basophils/100 WBC (Bld) 0 % Normal 0-2 [facility] Comment on above: Performed By: #### P RENAT #### [address] [address] Manager New Product: Ezio Calvillo MD [address] [place] [address] Manager New Product: Chase Glez MD Eosinophils (Bld) [#/Vol] 0.12 10*3/uL Normal 0.00-0.44 [facility] Comment on above: Performed By: #### P RENAT #### [address] [address] Manager New Product: Ezio Calvillo MD [address] [place] [address] Manager New Product: Chase Glez MD Eosinophils/100 WBC (Bld) 2 % Normal 1-4 [facility] Comment on above: Performed By: #### P RENAT #### [address] [address] Manager New Product: Ezio Calvillo MD [address] [place] [place] [phone] Manager New Product: Chase Glez MD Erythrocyte distribution width (RBC) [Ratio] 12.4 % Normal 11.8-14.4 [facility] Comment on above: Performed By: #### P RENAT #### [address] [place] [address] Manager New Product: Ezio Calvillo MD [facility] [address] [place] [address] [place] [address] Manager New Product: Chase Glez MD Hematocrit (Bld) [Volume fraction] 41.5 % Normal 36.3-47.1 [facility] Comment on above: Performed By: #### P RENAT #### [address] [address] Manager New Product: Ezio Calvillo MD [address] [place] [phone] Manager New Product: Chsae Glez MD Hemoglobin (Bld) [Mass/Vol] 13.5 g/dL Normal 11.9-15.1 [facility] Comment on above: Performed By: #### P RENAT #### [address] [address] Manager New Product: Ezio Calvillo MD [address] [place] [place] [phone] Manager New Product: Chase Glez MD Immature granulocytes (Bld) [#/Vol] 0 % Normal 0 [facility] Comment on above: Performed By: #### P RENAT #### [address] [address] Manager New Product: Ezio Calvillo MD [facility] [address] [place] [address] [place] [phone] Manager New Product: Chase Glez MD Lymphocytes (Bld) [#/Vol] 2.14 10*3/uL Normal 1.10-3.70 [facility] Comment on above: Performed By: #### P RENAT #### [address] [address] Manager New Product: Ezio Calvillo MD [address] Mart [facility]83 Manager New Product: Chase Glez MD Lymphocytes/100 WBC (Bld) 28 % Normal 24-43 [facility] Comment on above: Performed By: #### P RENAT #### [address] [address] Manager New Product: Ezio Calvillo MD [address] Mart [facility]83 Manager New Product: Chase Glez MD MCH (RBC) [Entitic mass] 28.9 pg Normal 25.2-33.5 [facility] Comment on above: Performed By: #### P RENAT #### [address] [address] Manager New Product: Ezio Calvillo MD [address] [place] [place] [phone] Manager New Product: Chase Glez MD MCHC (RBC) [Mass/Vol] 32.5 g/dL Normal 28.4-34.8 [facility] Comment on above: Performed By: #### P RENAT #### [address] [address] Manager New Product: Ezio Calvillo MD [address] [place] [id number] Manager New Product: Chase Glez MD MCV (RBC) [Entitic vol] 88.9 fL Normal 82.6-102.9 [facility] Comment on above: Performed By: #### P RENAT #### [address] [id number] Manager New Product: Ezio Calvillo MD [address] [place] [id number] Manager New Product: Chase Glez MD Monocytes (Bld) [#/Vol] 0.63 10*3/uL Normal 0.10-1.20 [facility] Comment on above: Performed By: #### P RENAT #### [address] [address] Manager New Product: Ezio Calvillo MD [facility] [address] [place] [address] [place] [address] Manager New Product: Chase Glez MD Monocytes/100 WBC (Bld) 8 % Normal 3-12 [facility] Comment on above: Performed By: #### P RENAT #### [address] [address] Manager New Product: Ezio Calvillo MD [address] [place] [id number] Manager New Product: Chase Glez MD Neutrophil (Seg) 62 % Normal 36-65 [facility] Comment on above: Performed By: #### P RENAT #### [address] [address] Manager New Product: Ezio Calvillo MD [facility] [address] [place] [address] [place] [address] Manager New Product: Chase Glez MD NRBC Automated 0.0 per 100 WBC Normal 0.0 [facility] Comment on above: Performed By: #### P RENAT #### [address] [address] Manager New Product: Ezio Calvillo MD [facility] [address] [place] [address] [place] [address] Manager New Product: Chase Glez MD Platelet mean volume (Bld) [Entitic vol] 12.3 fL Normal 8.1-13.5 [facility] Comment on above: Performed By: #### P RENAT #### [address] [address] Manager New Product: Ezio Calvillo MD [facility] [address] [place] [address] Dr. [place], [place] [phone] Manager New Product: Chase Glez MD Platelets (Bld) [#/Vol] 213 10*3/uL Normal 138-453 [facility] Comment on above: Performed By: #### P RENAT #### [address] [address] Manager New Product: Ezio Calvillo MD [address] [place] [id number] Manager New Product: Chase Glez MD RBC (Bld) [#/Vol] 4.67 10*6/uL Normal 3.95-5.11 [facility] Comment on above: Performed By: #### P RENAT #### [address] [address] Manager New Product: Ezio Calvillo MD [address] [place] [address] Manager New Product: Chase Glez MD WBC (Bld) [#/Vol] 7.6 10*3/uL Normal 3.5-11.3 [facility] Comment on above: Performed By: #### P RENAT #### [address] [address] Manager New Product: Ezio Calvillo MD [address] [place] [address] Manager New Product: Chase Glez MD Auto Diff Performed NOT REPORTED Normal [facility] Comment on above: Performed By: #### P RENAT #### [address] [address] Manager New Product: Ezio Calvillo MD [address] [place] [address] Manager New Product: Chase Glez MD Platelets (Bld) [#/Vol] NOT REPORTED Normal [facility] Comment on above: Performed By: #### P RENAT #### [address] [place] [address] Manager New Product: Ezio Calvillo MD [facility] [address] [place] [address] Dr. [place], [place] [phone] Manager New Product: Chase Glez MD RBC morphology finding Nom (Bld) NOT REPORTED Normal [facility] Comment on above: Performed By: #### P RENAT #### [address] [address] Manager New Product: Ezio Calvillo MD [address] [place], [place] [phone] Manager New Product: Chase Glez MD WBC Morphology NOT REPORTED Normal [facility] Comment on above: Performed By: #### P RENAT #### [address] [address] Manager New Product: Ezio Calvillo MD [address] [place] 7271983 Manager New Product: Chase Glez MD Type + Scrnon 01-01 Type + Scrn Negative [facility] Comment on above: Performed By: #### P RTYS #### [address] [place], [place] [id number] Manager New Product: Chase Glez MD Toxicology Scree, Urineon Amphetamine(s),Ur Negative Normal NEG [facility] Comment on above: Performed By: #### C PDAU #### [address] [place], [place] [id number] Manager New Product: Chase Glez MD Barbiturate(s),Ur Negative Normal NEG [facility] Comment on above: Performed By: #### C PDAU #### [address] [place], [place] [phone] Manager New Product: Chase Glez MD Benzodiazepine(s) Negative Normal NEG [facility] Comment on above: Performed By: #### C PDAU #### [facility] [address] [place], [place] [phone] Manager New Product: Chase Glez MD Buprenorphrine, Ur Negative Normal NEG [facility] Comment on above: Performed By: #### C PDAU #### [facility] [address] [place], [place] [phone] Manager New Product: Chase Glez MD Cannabinoid(s),Ur Negative Normal [facility] Comment on above: Performed By: #### C PDAU #### [facility] [address] [place], [place] [id number] Manager New Product: Chase Glez MD Cocaine Metabolite Negative Normal [facility] Comment on above: Performed By: #### C PDAU #### [facility] [address] [place], [facility]83 Manager New Product: Chase Glez MD Methadone Ql (U) Negative Normal [facility] Comment on above: Performed By: #### C PDAU #### [facility] [address] [place], [facility]83 Manager New Product: Chase Glez MD Methamphetamine, Ur Negative Normal [facility] Comment on above: Performed By: #### C PDAU #### [facility] [address] [place], [facility]83 Manager New Product: Chase Glez MD Opiate(s), Ur Negative Normal [facility] Comment on above: Performed By: #### C PDAU #### [facility] [address] [place] [address] Manager New Product: Chase Glez MD Oxycodone, Urine Negative Normal [facility] Comment on above: Performed By: #### C PDAU #### [facility] [address] [place] [address] Manager New Product: Chase Glez MD Phencyclidine, Ur Negative Normal NEG [facility] Comment on above: Performed By: #### C PDAU #### [facility] [address] [place] [address] Manager New Product: Chase Glez MD Propoxyphene,Urine Negative Normal NEG [facility] Comment on above: Performed By: #### C PDAU #### [facility] [address] [place] [address] Manager New Product: Chase Glez MD Tricyclic antidepressants Screen Ql (U) Negative Normal NEG [facility] Comment on above: Result Comment: Drug screen results are to be used for medical purposes only. All positive results are unconfirmed. Testing for employment or legal uses should be sent to a reference laboratory for confirmation. Performed By: #### C PDAU #### [facility] [address] [place] [address] [place] [address] Manager New Product: Chase Glez MD Interpretive Info NOT REPORTED Normal [facility] Comment on above: Performed By: #### C PDAU #### [facility] [address] [place] [address] [place] [address] Manager New Product: Chase Glez MD MDMA, Urine NOT REPORTED Normal NEG [facility] Comment on above: Performed By: #### C PDAU #### [facility] [address] [place] [address] Manager New Product: Chase Glez MD Urine Drug Screen, [facility] 01-02-2020 Amphetamine Screen, Ur Negative NEGATIVE [facility] [place] Barbiturate Screen, Ur Negative NEGATIVE [facility] Benzodiazepine Screen, Urine Negative NEGATIVE [facility] Buprenorphine Urine Negative NEGATIVE [facility] Cannabinoid Scrn, Ur Negative NEGATIVE [facility] Cocaine Metabolite, Urine Negative NEGATIVE [facility] [place] MDMA, Urine NOT REPORTED NEGATIVE [facility] [place] Methadone Screen, Urine Negative NEGATIVE [facility] [place] Methamphetamine, Urine Negative NEGATIVE [facility] [place] Opiates, Urine Negative NEGATIVE [facility] [place] Oxycodone Screen, Ur Negative NEGATIVE [facility] [place] Phencyclidine, Urine Negative NEGATIVE [facility] [place] Propoxyphene, Urine Negative NEGATIVE [facility] [place] Test Information NOT REPORTED [facility] Tricyclic Antidepressants, Urine Negative NEGATIVE [facility] [place] Comment on above: Drug screen results are to be used for medical purposes only. All positive results are unconfirmed. Testing for employment or legal uses should be sent to a reference laboratory for confirmation. Chlamydia/GC DNA, TPon 10-13 Chlamydia Probe, TP Negative Normal NEG [facility] Comment on above: Result Comment: CHLA MYDIA [...] target. Performed By: #### P PPVP #### [facility] [employer] [address] [place] [address] Manager New Product: Ezio Calvillo MD Gonorrhea Probe, TP Negative Normal NEG [facility] Comment on above: Result Comment: NEIS SERIA [...] target. Performed By: #### P PPVP #### [facility] [place], [place] [id number] Manager New Product: Ezio Calvillo MD Cytologyon 10-11-2019 Cytology (NOTE) INTERPRETATION Cervical material, (ThinPrep vial, Imaging-assisted review): Specimen Adequacy: Satisfactory for evaluation. -Endocervical/miller sformation zone component is absent. Descriptive Diagnosis: Negative for intraepithelial lesion or malignancy. Shift in rebecca suggestive of bacterial vaginosis. 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 High Risk HPV DNA testing is requested if the diagnosis is ASC-US LMP: 09/17/2019 GYNECOLOGIC CYTOLOGY REPORT Patient Name: ROBLES YEN [facility] Rec: [id number] Path Number: [id number] [facility] ANATOMIC PATHOLOGY [address] [place] [phone] Normal [facility] Comment on above: Performed By: #### P PPVP #### [address] [id number] Manager New Product: Ezio Calvillo MD HCG, Quanton 02-06-2019 HCG, Quant <1 Normal <5 [facility] Comment on above: Result Comment: Non-preg premeno [...] By: #### B HCG #### [facility] [address] [place] [address] [place] [address] Manager New Product: Chase Glez MD hCG, Quantitative, Ordered By: Amaya Russo on 02-06-2019 hCG Quant <1 <5 IU/L [facility] Work Phone: Comment on above: Non-preg premeno [...] 19 2 Hr 139 mg/dL Normal 65-139 [facility] Comment on above: Performed By: #### G LU2HR #### [facility] [address] [place], [place] [id number] Manager New Product: Chase Glez MD 1 Hr 143 mg/dL Normal 65-184 [facility] Comment on above: Performed By: #### G LU2HR #### [facility] [address] [place], [place] [phone] Manager New Product: Chase Glez MD Fasting 91 mg/dL Normal 65-99 [facility] Comment on above: Performed By: #### G LU2HR #### [facility] [address] [place], [place] [phone] Manager New Product: Chase Glez MD Glucose [Mass/Vol] 75 g Normal [facility] Comment on above: Performed By: #### G LU2HR #### [facility] [address] [place], [place] [phone] Manager New Product: Chase Glez MD Glucose Tolerance, 2 Hrson 1 03-10-2018 Glucose [Mass/Vol] 75 g [place] Glucose [Mass/Vol] 91 mg/dL 65 - 99 mg/dL [place] Glucose, GTT - 1 Hour 143 mg/dL 65 - 1 84 mg/dL [place] Glucose, GTT - 2 Hour 139 mg/dL 65 - 1 39 mg/dL [place] Glucose, Whole Bloodon 01-08 Glucose [Mass/Vol] 88 mg/dL 74 - 100 mg/dL [place] Glucose, Whole Bloodon 12-22 Glucose [Mass/Vol] 104 mg/dL High 74 - 100 mg/dL [place] Interpretation and review of laboratory results Abnormal [place] APTTon 12-21-2018 aPTT Coag (Vick) [Time] 25.3 s [place] CBC auto differentialon 10-3 2019 Basophils (Bld) [#/Vol] 10*3/uL M [place] Basophils/100 WBC (Bld) 0 % 0 - 2 % [place] Differential Type NOT REPORTED [place] Eosinophils (Bld) [#/Vol] 0.10 10*3/uL [place] Eosinophils/100 WBC (Bld) 1 % 1 - 4 % [place] Erythrocyte distribution width (RBC) [Ratio] 14.2 % 11.8 - 14.4 % [place] Hematocrit (Bld) [Volume fraction] 29.5 % Low 36.3 - 47.1 % [place] Hemoglobin (Bld) [Mass/Vol] 9.8 g/dL Low 11.9 - 15.1 g/dL [place] Immature granulocytes (Bld) [#/Vol] 1 % High 0 [place] Immature granulocytes (Bld) [#/Vol] 0.10 10*3/uL [place] Interpretation and review of laboratory results Abnormal [place] Lymphocytes (Bld) [#/Vol] 1.31 10*3/uL [place] Lymphocytes/100 WBC (Bld) 18 % Low 24 - 43 % [place] MCH (RBC) [Entitic mass] 29.8 pg 25. 2 - 33.5 pg [place] MCHC (RBC) [Mass/Vol] 33.2 g/dL 28.4 - 34.8 g/dL [place] MCV (RBC) [Entitic vol] 89.7 fL 82.6 - 102.9 fL [place] Monocytes (Bld) [#/Vol] 0.73 10*3/uL [place] Monocytes/100 WBC (Bld) 10 % 3 - 12 % [place] Platelet mean volume (Bld) [Entitic vol] 11.4 fL 8.1 - 13.5 fL [place] Platelets (Bld) [#/Vol] NOT REPORTED [place] Platelets (Bld) [#/Vol] 148 10*3/uL [place] RBC (Bld) [#/Vol] 3.29 10*6/uL Low 3.95 - 5.1 1 m/uL [place] RBC morphology finding Nom (Bld) NOT REPORTED [place] Segmented neutrophils/100 WBC (Bld) 70 % High 36 - 65 % [place] Segs Absolute 5.17 [place] WBC (Bld) [#/Vol] 7.4 10*3/uL [place] WBC (Bld) [#/Vol] 0.0 10*3/uL 0.0 per 10 0 WBC [place] WBC Morphology NOT REPORTED [place] Comprehensive metabolic pane susie 12-21-2018 Albumin [Mass/Vol] 3.1 g/dL Low 3.5 - 5.2 g/dL [place] Albumin/Globulin [Mass ratio] 1.0 {ratio} [place] ALP [Catalytic activity/Vol] 124 U/L High 35 - 104 U/L [place] ALT [Catalytic activity/Vol] 7 U/L 5 - 33 U/L [place] Anion gap [Moles/Vol] 13 mmol/L 9 - 17 mmol/L [place] AST [Catalytic activity/Vol] 14 U/L <32 [place] Bilirubin Ql (U) 0.36 mg/dL 0.3 - 1.2 mg/dL [place] Bun/Cre Ratio 10 [place] Calcium [Mass/Vol] 9.3 mg/dL 8.6 - 10. 4 mg/dL [place] Chloride [Moles/Vol] 103 mmol/L 98 - 10 7 mmol/L [place] CO2 [Moles/Vol] 19 mmol/L Low 20 - 31 mmol/L [place] Creatinine [Mass/Vol] 0.84 mg/dL 0.5 - 0.9 mg/dL [place] GFR >60 >60 mL/min [place] GFR Non- >60 >60 mL/min [place] Glucose [Mass/Vol] 77 mg/dL 70 - 99 mg/dL [place] Potassium [Moles/Vol] 3.8 mmol/L 3.7 - 5.3 mmol/L [place] Protein [Mass/Vol] 6.3 g/dL Low 6.4 - 8.3 g/dL [place] Sodium [Moles/Vol] 135 mmol/L 135 - 144 mmol/L [place] Urea nitrogen [Mass/Vol] 8 mg/dL 6 - 20 mg/d L [place] DRUG SCREEN MULTI URINEon Amphetamine Screen, Ur Negative NEGATIVE [place] Barbiturate Screen, Ur Negative NEGATIVE [place] Benzodiazepine Screen, Urine Negative NEGATIVE [place] Buprenorphine Urine Negative NEGATIVE [place] Cannabinoid Scrn, Ur Negative NEGATIVE [place] Cocaine Metabolite, Urine Negative NEGATIVE [place] MDMA, Urine NOT REPORTED NEGATIVE [place] Methadone Screen, Urine Negative NEGATIVE [place] Methamphetamine, Urine Negative NEGATIVE [place] Opiates, Urine Negative NEGATIVE [place] Oxycodone Screen, Ur Negative NEGATIVE [place] Phencyclidine, Urine Negative NEGATIVE [place] Propoxyphene, Urine Negative NEGATIVE [place] Test Information NOT REPORTED [place] Tricyclic Antidepressants, Urine Negative NEGATIVE [facility] [place] Comment on above: Drug screen results are to be used for medical purposes only. All positive results are unconfirmed. Testing for employment or legal uses should be sent to a reference laboratory for confirmation. Fibrinogenon 12-21-2018 Fibrinogen 481 mg/dL High 185 - 451 mg/dL [place] Interpretation and review of laboratory results Abnormal [place] Lactate Dehydrogenaseon 11-23 LD 201 U/L 135 - 214 U/L [place] Metabolic Panelon 12-21-2018 GFR/1.73 sq M predicted among non-blacks MDRD (S/P/Bld) [Vol rate/Area] [place] Comment on above: Average GFR for 30-3 9 years old: 107 mL/min/1.73sq m Chronic Kidney Disease: <60 mL/min/1.73sq m Kidney failure: <15 mL/min/1.73sq m eGFR calculated using average adult body mass. Additional eGFR calculator available at: http://www.[employer]/multiple_crcl_2012.htm Stage 1: Some kidney damage normal GFR Stage 2: Mild kidney damage GFR 60-89 Stage 3: Moderate kidney damage GFR 30-59 Stage 4: Severe kidney damage GFR 15-29 Stage 5: Severe kidney damage GFR <15 ESRD - chronic treatment by dialysis or transplant Otheron 12-21-2018 Interpretation and review of laboratory results Abnormal [place] Protime-INRon 12-21-2018 INR Coag (PPP) [Relative time] 1.0 {INR} [place] PT Coag (PPP) [Time] 9.8 s [place] Uric acidon 12-21-2018 Urate [Mass/Vol] 6.8 mg/dL High 2.4 - 5.7 mg/dL [place] APTTon 12-04-2018 aPTT Coag (Bld) [Time] 23.4 s [place] CBC Auto Differentialon 11-21 Basophils (Bld) [#/Vol] 0.03 10*3/uL [place] Basophils/100 WBC (Bld) 0 % 0 - 2 % [place] Differential Type NOT REPORTED [place] Eosinophils (Bld) [#/Vol] 0.12 10*3/uL [place] Eosinophils/100 WBC (Bld) 1 % 1 - 4 % [place] Erythrocyte distribution width (RBC) [Ratio] 14.3 % 11.8 - 14.4 % [place] Hematocrit (Bld) [Volume fraction] 30.2 % Low 36.3 - 47.1 % [place] Hemoglobin (Bld) [Mass/Vol] 10.3 g/dL Low 11.9 - 15.1 g/dL [place] Immature granulocytes (Bld) [#/Vol] 2 % High 0 [place] Immature granulocytes (Bld) [#/Vol] 0.22 10*3/uL [place] Interpretation and review of laboratory results Abnormal [place] Lymphocytes (Bld) [#/Vol] 1.19 10*3/uL [place] Lymphocytes/100 WBC (Bld) 13 % Low 24 - 43 % [place] MCH (RBC) [Entitic mass] 30.4 pg 25. 2 - 33.5 pg [place] MCHC (RBC) [Mass/Vol] 34.1 g/dL 28.4 - 34.8 g/dL [place] MCV (RBC) [Entitic vol] 89.1 fL 82.6 - 102.9 fL [place] Monocytes (Bld) [#/Vol] 0.74 10*3/uL [place] Monocytes/100 WBC (Bld) 8 % 3 - 12 % [place] Platelet mean volume (Bld) [Entitic vol] NOT REPORTED 8.1 - 13.5 fL [place] Platelets (Bld) [#/Vol] NOT REPORTED [place] Platelets (Bld) [#/Vol] See Reflexed IPF Result [place] RBC (Bld) [#/Vol] 3.39 10*6/uL Low 3.95 - 5.1 1 m/uL [place] RBC morphology finding Nom (Bld) NOT REPORTED [place] Segmented neutrophils/100 WBC (Bld) 75 % High 36 - 65 % [place] Segs Absolute 6.71 [place] WBC (Bld) [#/Vol] 0.0 10*3/uL 0.0 per 10 0 WBC [place] WBC (Bld) [#/Vol] 9.0 10*3/uL [place] WBC Morphology NOT REPORTED [place] Comprehensive Metabolic Pane susie 12-04-2018 Albumin [Mass/Vol] 3.2 g/dL Low 3.5 - 5.2 g/dL [place] Albumin/Globulin [Mass ratio] 1.0 {ratio} [place] ALP [Catalytic activity/Vol] 106 U/L High 35 - 104 U/L [place] ALT [Catalytic activity/Vol] 7 U/L 5 - 33 U/L [place] Anion gap [Moles/Vol] 13 mmol/L 9 - 17 mmol/L [place] AST [Catalytic activity/Vol] 11 U/L <32 [place] Bilirubin Ql (U) 0.25 mg/dL Low 0.3 - 1.2 mg/dL [place] Bun/Cre Ratio 7 Low [place] Calcium [Mass/Vol] 9.8 mg/dL 8.6 - 10. 4 mg/dL [place] Chloride [Moles/Vol] 103 mmol/L 98 - 10 7 mmol/L [place] CO2 [Moles/Vol] 19 mmol/L Low 20 - 31 mmol/L [place] Creatinine [Mass/Vol] 0.89 mg/dL 0.5 - 0.9 mg/dL [place] GFR >60 >60 mL/min [place] GFR Non- >60 >60 mL/min [place] Glucose [Mass/Vol] 103 mg/dL High 70 - 99 mg/dL [place] Interpretation and review of laboratory results Abnormal [place] Potassium [Moles/Vol] 3.5 mmol/L Low 3.7 - 5.3 mmol/L [place] Protein [Mass/Vol] 6.5 g/dL 6.4 - 8.3 g/dL [place] Sodium [Moles/Vol] 135 mmol/L 135 - 144 mmol/L [place] Urea nitrogen [Mass/Vol] 6 mg/dL 6 - 20 mg/d L [place] Fibrinogenon 12-04-2018 Fibrinogen 498 mg/dL High 185 - 451 mg/dL [place] Immature Platelet Fractionon 12-04-2018 Interpretation and review of laboratory results Abnormal [place] Platelet, Fluorescence 137 Low Me [place] Platelet, Immature Fraction 10.3 % 1.1 - 10.3 % [place] Lactate Dehydrogenaseon 11-21 LD 199 U/L 135 - 214 U/L [place] Metabolic Panelon 12-04-2018 GFR/1.73 sq M predicted among non-blacks MDRD (S/P/Bld) [Vol rate/Area] [place] Comment on above: Stage 1: Some [...] body mass. Additional eGFR calculator available at: http://www.[employer]/multiple_crcl_2012.htm Microscopic Urinalysison Amorphous, UA NOT REPORTED None [place] Bacteria, UA TRACE Abnormal None [place] Casts UA NOT REPORTED /LPF [place] Crystals UA NOT REPORTED None /HPF [place] Epithelial Cells UA 5 TO 10 [place] Interpretation and review of laboratory results Abnormal [place] Mucus, UA TRACE Abnormal None [place] Other Observations UA NOT REPORTED NOT REQ. M [place] RBC (U) [#/Vol] None [place] Renal Epithelial, Urine NOT REPORTED 0 /HPF [place] Trichomonas, UA NOT REPORTED None [place] WBC, UA 5 TO 10 [place] Yeast, UA NOT REPORTED None [place] - [place] Otheron 12-04-2018 Interpretation and review of laboratory results Abnormal [place] Protein / creatinine ratio, urineon 12-04-2018 Creatinine, Ur 93.6 mg/dL 28 - 217 mg/dL [place] Protein (U) [Mass/Vol] 14 mg/dL [place] Comment on above: No normal range esta blished. Urine Total Protein Creatinine Ratio 0.15 [place] Protime-INRon 12-04-2018 INR Coag (PPP) [Relative time] 0.9 {INR} [place] PT Coag (PPP) [Time] 9.4 s Low [place] Uric Acidon 12-04-2018 Urate [Mass/Vol] 5.7 mg/dL 2.4 - 5.7 mg/dL [place] Urinalysison 12-04-2018 Bilirubin Urine Negative NEGATIVE [place] Color, UA YELLOW YELLOW [place] Glucose, Ur Negative NEGATIVE [place] Interpretation and review of laboratory results Abnormal [place] Ketones Ql (U) Negative NEGATIVE [place] Leukocyte esterase Test strip Ql (U) MODERATE Abnormal NEGATIVE [place] Nitrite, Urine Negative NEGATIVE [place] pH, UA 7.5 [place] Protein (U) [Mass/Vol] Negative NEGATIVE [place] Specific [place], UA 1.010 [place] Turbidity UA SLIGHTLY CLOUDY Abnormal [place]AR [place] Urinalysis Comments NOT REPORTED [place] Urine Hgb Negative NEGATIVE [place] Urobilinogen, Urine Normal Normal [place] Glucose tolerance, 1 houron 10-16-2018 GLU ADMN Glucola [place] Glucose tolerance screen 50g 194 mg/dL High 70 - 135 mg/dL [place] Interpretation and review of laboratory results Abnormal [place] Hemoglobinon 10-16-2018 Hemoglobin (Bld) [Mass/Vol] 10.8 g/dL Low 11.9 - 15.1 g/dL [place] Interpretation and review of laboratory results Abnormal [place] Vital Signs Date Time Vital Sign Value Performing Clinician Facility 04-10-2024 09:07-0500 Body height 160 cm Kika Guaman SCREEN PRINTING SUPERVISOR Work Phone: [facility] 04-10-2024 09:07-0500 Body mass index (BMI) [Ratio] 35.11 kg/m2 Kika Guaman SCREEN PRINTING SUPERVISOR Work Phone: [facility] 04-10-2024 09:07-0500 Body temperature 98.1 [degF] Kika Schusterfelipe SCREEN PRINTING SUPERVISOR Work Phone: [facility] 04-10-2024 09:07-0500 Body weight 89.9 kg Kika Guaman SCREEN PRINTING SUPERVISOR Work Phone: [facility] 04-10-2024 09:07-0500 Diastolic blood pressure 90 mm[Hg] Kika Felixyoni SCREEN PRINTING SUPERVISOR Work Phone: [facility] 04-10-2024 09:07-0500 Heart rate 71 /min Kika Felixyoni SCREEN PRINTING SUPERVISOR Work Phone: [facility] 04-10-2024 09:07-0500 Respiratory rate 18 /min Kika Guaman SCREEN PRINTING SUPERVISOR Work Phone: [facility] 04-10-2024 09:07-0500 SaO2% (BldA) [Mass fraction] 97 % Kika Felixyoni SCREEN PRINTING SUPERVISOR Work Phone: [facility] 04-10-2024 09:07-0500 Systolic blood pressure 120 mm[Hg] Kika Schusterfelipe SCREEN PRINTING SUPERVISOR Work Phone: [facility] 2024 10:10-0500 Body height 160 cm Kika Felixyoni SCREEN PRINTING SUPERVISOR Work Phone: [facility] 2024 10:10-0500 Body mass index (BMI) [Ratio] 35.61 kg/m2 Kika Schusterfelipe SCREEN PRINTING SUPERVISOR Work Phone: [facility] 2024 10:10-0500 Body temperature 98.8 [degF] Kika Concepciónhholz SCREEN PRINTING SUPERVISOR Work Phone: [facility] 2024 10:10-0500 Body weight 91.17 kg Kika Concepciónhholz SCREEN PRINTING SUPERVISOR Work Phone: [facility] 2024 10:10-0500 Diastolic blood pressure 88 mm[Hg] Kika Aichholz SCREEN PRINTING SUPERVISOR Work Phone: [facility] 2024 10:10-0500 Heart rate 89 /min Kika Aichholz SCREEN PRINTING SUPERVISOR Work Phone: [facility] 2024 10:10-0500 Respiratory rate 18 /min Kika Concepciónhholz SCREEN PRINTING SUPERVISOR Work Phone: [facility] 2024 10:10-0500 SaO2% (BldA) [Mass fraction] 97 % Kika Concepciónhholz SCREEN PRINTING SUPERVISOR Work Phone: [facility] 2024 10:10-0500 Systolic blood pressure 116 mm[Hg] Kika Aichholz SCREEN PRINTING SUPERVISOR Work Phone: [facility] 11-09-2023 13:49-0400 Body height 160 cm Kika Concepciónhholz SCREEN PRINTING SUPERVISOR Work Phone: [facility] 11-09-2023 13:49-0400 Body mass index (BMI) [Ratio] 34.76 kg/m2 Kika Concepciónhholz SCREEN PRINTING SUPERVISOR Work Phone: [facility] 11-09-2023 13:49-0400 Body temperature 98.49 [degF] Kika Aichholz SCREEN PRINTING SUPERVISOR Work Phone: [facility] 11-09-2023 13:49-0400 Body weight 89 kg Kika Aichholz SCREEN PRINTING SUPERVISOR Work Phone: [facility] 11-09-2023 13:49-0400 Diastolic blood pressure 80 mm[Hg] Kika Aichholz SCREEN PRINTING SUPERVISOR Work Phone: [facility] 11-09-2023 13:49-0400 Heart rate 97 /min Kika Aichholz SCREEN PRINTING SUPERVISOR Work Phone: [facility] 11-09-2023 13:49-0400 Respiratory rate 18 /min Kika Aichholz SCREEN PRINTING SUPERVISOR Work Phone: [facility] 11-09-2023 13:49-0400 SaO2% (BldA) [Mass fraction] 97 % Kika Aichholz SCREEN PRINTING SUPERVISOR Work Phone: [facility] 11-09-2023 13:49-0400 Systolic blood pressure 100 mm[Hg] Kika Aichholz SCREEN PRINTING SUPERVISOR Work Phone: [facility] 06-16-2023 16:27-0400 Body height 160.02 cm Kika Aichholz Work Phone: [facility] 06-16-2023 16:27-0400 Body mass index (BMI) [Ratio] 35 kg/m2 Kika Aichholz Work Phone: [facility] 06-16-2023 16:27-0400 Body temperature 97.2 [degF] Kika Aichholz Work Phone: [facility] 06-16-2023 16:27-0400 Body temperature 98.7 [degF] Kika Aichholz Work Phone: [facility] 06-16-2023 16:27-0400 Body weight 89.81 kg Kika Aichholz Work Phone: [facility] 06-16-2023 16:27-0400 Diastolic blood pressure 80 mm[Hg] Kika Aichholz Work Phone: [facility] 06-16-2023 16:27-0400 Heart rate 101 /min Kika Aichholz Work Phone: [facility] 06-16-2023 16:27-0400 Respiratory rate 16 /min Kika Aichholz Work Phone: [facility] 06-16-2023 16:27-0400 SaO2% (BldA) [Mass fraction] 95 % Kika Guaman Work Phone: [facility] 06-16-2023 16:27-0400 Systolic blood pressure 124 mm[Hg] Kika Guaman Work Phone: [facility] 05-05-2023 15:55-0400 Body height 160.[address] [facility] 05-05-2023 15:55-0400 Body mass index (BMI) [Ratio] 34.5 kg/m2 [facility] 05-05-2023 15:55-0400 Body temperature 97.1 [degF] [facility] 05-05-2023 15:55-0400 Body weight 88.[address] [facility] 05-05-2023 15:55-0400 Heart rate 101 /min [facility] 05-05-2023 15:55-0400 Respiratory rate 18 /min [facility] 05-05-2023 15:55-0400 SaO2% (BldA) [Mass fraction] 98 % [facility] 04-07-2023 16:19-0500 Body height 160.[address] [facility] 04-07-2023 16:19-0500 Body mass index (BMI) [Ratio] 34.2 kg/m2 [facility] 04-07-2023 16:19-0500 Body temperature 98 [degF] [facility] 04-07-2023 16:19-0500 Body weight 87.[address] [facility] 04-07-2023 16:19-0500 Diastolic blood pressure 87 mm[Hg] [facility] 04-07-2023 16:19-0500 Heart rate 124 /min [facility] 04-07-2023 16:19-0500 Respiratory rate 18 /min [facility] 04-07-2023 16:19-0500 SaO2% (BldA) [Mass fraction] 98 % [facility] 04-07-2023 16:19-0500 Systolic blood pressure 126 mm[Hg] [facility] 05-26-2021 16:00-0400 Body height 160.02 cm Barbara Zhu Other [employer] Other 05-26-2021 16:00-0400 Body mass index (BMI) [Ratio] 32.59 kg/m2 Barbara Zhu Other [employer] Other 05-26-2021 16:00-0400 Body temperature 97.8 [degF] Barbara Zhu Other [employer] Other 05-26-2021 16:00-0400 Body weight 83.46 kg Barbara Zhu Other [employer] Other 05-26-2021 16:00-0400 SaO2% (BldA) [Mass fraction] 97 % Barbara Zhu Other [employer] Other 12-10-2020 16:15-0400 Body height 160.02 cm Katiuska Georgia Other [employer] Other 12-10-2020 16:15-0400 Body mass index (BMI) [Ratio] 31.88 kg/m2 Katiuska Georgia Other [employer] Other 12-10-2020 16:15-0400 Body temperature 98.2 [degF] Katiuska Georgia Other [employer] Other 12-10-2020 16:15-0400 Body weight 81.65 kg Katiuska Georgia Other [employer] Other 12-10-2020 16:15-0400 Respiratory rate 18 /min Katiuska Ho Other [employer] Other 12-10-2020 16:15-0400 SaO2% (BldA) [Mass fraction] 97 % Katiuska Ho Other [employer] Other 12-23-2018 08:46-0400 Body Temperature 97.59 [degF] [facility] [employer] [place] 12-23-2018 08:46-0400 BP Diastolic 77 mm[Hg] [facility] [place] 12-23-2018 08:46-0400 BP Systolic 120 mm[Hg] [facility] [place] 12-23-2018 08:46-0400 Pulse (Heart Rate) 81 /min [facility] [place] 12-23-2018 08:46-0400 Respiratory Rate 20 /min [facility] [place] 12-22-2018 02:11-0400 Pulse Oximetry 98 % [facility] [place] 12-21-2018 15:35-0400 BMI (Body Mass Index) 37.91 kg/m2 [facility] [place] 12-21-2018 15:35-0400 Body weight 97.07 kg [facility] [place] 12-21-2018 15:35-0400 Height 160 cm [facility] [place] 12-06-2018 00:01-0400 Body Temperature 97.9 [degF] [facility] [facility] [place] 12-06-2018 00:01-0400 BP Diastolic 74 mm[Hg] [facility]rey[facility] Fischer [facility] [place] 12-06-2018 00:01-0400 BP Systolic 121 mm[Hg] [facility] Fischer [facility] [place] 12-06-2018 00:01-0400 Pulse (Heart Rate) 105 /min [facility] 12-06-2018 00:01-0400 Respiratory Rate 18 /min [facility]reya Fischer [facility] [place] 12-05-2018 23:44-0400 BMI (Body Mass Index) 37.2 kg/m2 Freya Fischer [facility] 12-05-2018 23:44-0400 Body weight 95.25 kg Freya Fischer [facility] [place] 12-05-2018 23:44-0400 Height 160 cm Freya Fischer [facility] [place] 12-04-2018 11:48-0400 BP Diastolic 81 mm[Hg] [facility] [place] 12-04-2018 11:48-0400 BP Systolic 120 mm[Hg] [facility] [place] 12-04-2018 11:48-0400 Pulse (Heart Rate) 95 /min [place], [place] 12-04-2018 11:15-0400 Body Temperature 97.81 [degF] [place] 12-04-2018 11:15-0400 Respiratory Rate 18 /min [place] 10-17-2018 16:30-0400 Body Temperature 97.9 [degF] [address] 10-17-2018 16:30-0400 BP Diastolic 84 mm[Hg] [address] 10-17-2018 16:30-0400 BP Systolic 128 mm[Hg] [address] 10-17-2018 16:30-0400 Pulse (Heart Rate) 86 /min [address] 10-17-2018 16:30-0400 Respiratory Rate 20 /min [address] Encounters Encounter Date Encounter Type Care Provider Facility Start: 05-23-2024 End: 05-23-2024 Refill Kika Guaman NP Work Phone: [facility] Comment on above: Urinary tract infect ion without hematuria, site unspecified (Primary Dx); Urinary tract infection symptoms Start: 05-10-2024 End: 05-10-2024 Clinisync Result Encounter Kika Guaman NP Work Phone: [facility] Unsolicited Start: 05-10-2024 End: 05-10-2024 Clinisync Result Encounter Kika Aichholz SCREEN PRINTING SUPERVISOR Work Phone: [facility] Unsolicited Start: 05-09-2024 End: 05-09-2024 ambulatory KIKA DENIZ Not Available Start: 04-16-2024 End: 04-16-2024 Clinisync Result Encounter Kika Schusterfelipe SCREEN PRINTING SUPERVISOR Work Phone: [facility] Unsolicited Start: 04-16-2024 End: 04-16-2024 Clinisync Result Encounter Kika Schusterfelipe SCREEN PRINTING SUPERVISOR Work Phone: [facility] Unsolicited Start: 04-16-2024 End: 04-16-2024 Orders Only Kika Deniz SCREEN PRINTING SUPERVISOR Work Phone: [facility] Comment on above: Migraine without aur a and without status migrainosus, not intractable (CMS/HCC) (Primary Dx) Start: 04-10-2024 End: 04-10-2024 Bamboo flowsheet Kika Deniz SCREEN PRINTING SUPERVISOR Work Phone: [facility] Start: 04-10-2024 End: 04-10-2024 Bamboo flowsheet Kika Concepciónana laurafelipe SCREEN PRINTING SUPERVISOR Work Phone: [facility] Start: 04-10-2024 End: 04-10-2024 Office outpatient visit 25 minutes Kika Deniz SCREEN PRINTING SUPERVISOR Work Phone: [facility] Comment on above: Acute non-recurrent maxillary sinusitis (Primary Dx); Morbid (severe) obesity due to excess calories (CMS/HCC); Migraine without aura and without status migrainosus, not intractable (CMS/HCC); BMI 35.0-35.9,adult Start: 04-10-2024 End: 04-10-2024 ambulatory KIKA DNEIZ Not Available Start: 03-20-2024 End: 03-20-2024 Telephone encounter Kika Deniz SCREEN PRINTING SUPERVISOR Work Phone: [facility]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 1.2.840.534777.1.13.239. 2.7.3.851385.315 Unknown [id number] 2.16.840.1.562186.3.579. 2.531 Social History Date Type Detail Facility Start: 08-28-2018 End: 07-30-2022 Tobacco smoking status NHIS Never smoker [facility] Start: 08-28-2018 End: 2024 Alcohol intake Not Currently [facility] Start: 03-28-2014 Alcohol Comment rarely [facility] Ana Laura [place] Start: [facility]-20-[facility] [place] [place] Start: 1985 Sex Assigned At Not on file M [place], [place] Start: 10-11-2019 End: 01-02-2020 Tobacco use and exposure Never used [place], [place] Start: 01-04-2019 End: 10-11-2019 Alcohol intake Ex-drinker (finding) [facility] Y Exposure to SARS-CoV -2 (event) Not sure [place] Start: 03-23-2023 End: 05-09-2024 Alcohol intake Lifetime non-drinker (finding) [facility] [...] Start: 1987 Sex Assigned At Female F [facility] How often do you hav e [...] four times daily fastin, 2 hr pp [id number] Start: 10-18-2018 End: 12-23-2018 1 each by Other route 4 times daily One glucometer, test strips, lancets - per insurance coverage [id number] Start: 10-18-2018 End: 10-18-2019 use to test BLOO D SUGAR FOUR TIMES DAILY [id number] Start: 10-23-2018 End: 12-23-2018 Clinical Notes 12-10-2020 to 04-10-2024 Kika Guaman NP - 04/10/2024 9:35 AM CESAR BELTRAN - 04/10/2024 9:00 AM Venancio Guaman NP [...] or panic attack norethindrone ac-eth estradio (Lorelei .07/20) 1.5-30 MG-MCG tablet tablet 1 tablet, Oral, [...] SURGERY Left 2017 LT KNEE SCOPE- STEPANIC AR HAND/FINGER SURGERY UNLISTED Right 2002 thumb family [...] trialed some qulipta No MRI brain at [facility] Qulipta did help Relevant Medications Atogepant (Qulipta) [...] trialed some qulipta No MRI brain at [facility] Qulipta did help, will continue Order MRI [...] new script 1mg documented in this encounter [facility] 04-10-2024 Instructions Kika Guaman NP - 04/10/2024 9:00 AM EST Sinus: finish atb, fluids, rest fu if not better GARCIA: qulipta 60mg daily, will try to get MRI approved for [facility] Weight loss; after finished with 0.5mg wegovy, increase in 1mg documented in this encounter [facility] 03-20-2024 Telephone encounter Note Form atting of this note might be different from the original. Please call to schedule pt a well women examination please [place] [facility] 03-20-2024 Miscellaneous Notes Formattin g of this note might be different from the original. Please call to schedule pt a well women examination please [place] documented in this encounter [facility] 2024 History of Presen t illness Narrative Associated Problem(s): Moderate anxiety Current medication sertraline at 75mg daily Follow with mental health Associated Problem(s): Major depressive disorder, single episode, moderate (HCC) (CMS/HCC) Is currently taking sertraline for this, tolerating well Associated Problem(s): Migraine without aura and without status migrainosus, not intractable (CMS/HCC) Trial sample of qulipta 60 mg daily #2 samples, lot [id number], exp 11/16 Trialed: nsaids, imitrex, ubrelvey, topamax CT head: 04/05/23: normal MRI brain: reports has had one in the last year or so, will attempt to track down. Left message for [facility] radiology for MRI report Pt states the Arigo is not working for her anymore. Pt [...] d/t expense of med. While doing the saxenda: was working out at the gym, monitoring caloric intake. Not able to get insurance coverage for wegovy, ultimately went back to Saxi'mma around 12/14, she is up to max [...] of 3mg daily norethindrone ac-eth estradio (Lorelei ) 1.5-30 MG-MCG tablet tablet 1 tablet, Oral, [...] SURGERY Left 2017 LT KNEE SCOPE- STEPANIC AR HAND/FINGER SURGERY UNLISTED Right 2002 thumb family [...] qulipta 60 mg daily #2 samples, lot [id number], exp 11/16 Trialed: nsaids, imitrex, ubrelvey, topamax CT head: 04/05/23: normal MRI brain: reports has had one in the last year or so, will attempt to track down. Left message for [facility] radiology for MRI report Morbid (severe) obesity [...] will try again documented in this encounter [facility] 2024 Instructions Kika Guaman NP - 2024 9:40 AM EST I will try to re submit wegovy to insurance, if approved we will have to stop saxenda and start that Migraines: Qulipta 60mg daily, for migraine headaches documented in this encounter [facility] 01-21-2024 Telephone encounter Note Form atting of this note might be different from the original. I did speak to pt, only symptom is cough, no sinus pressure or nasal drainage. Has tried OTC Nyquil as well as tylenol cough/cold Will send in tessalon script [facility] 01-21-2024 Miscellaneous Notes Formattin g of this note might be different from the original. I did speak to pt, only symptom is cough, no sinus pressure or nasal drainage. Has tried OTC Nyquil as well as tylenol cough/cold Will send in tessalon script documented in this encounter [facility] 11-09-2023 History of Presen t illness Narrative [...] needed for insomnia or panic attack Lorelei 1.5 1.5-30 MG-MCG tablet tablet 1 tablet, Oral, Daily Liraglutide -Weight Management (Saxenda) 18 MG/3ML solution pen-injector Start with 0.6mg daily for 7 days, every 7 days increase the dose by 0.6mg to max dose of 3mg daily Multiple Vitamin (Daily-Vitamin) tablet 1 tablet, Oral, Daily sertraline (Zoloft) 50 MG tablet 1.5 TABLETS Oral MORNING for 30 days Dose increase 9/16/24 valACYclovir (VALTREX) 500 mg, Oral, As needed [...] SURGERY Left 2017 LT KNEE SCOPE- STEPANIC AR HAND/FINGER SURGERY UNLISTED Right 2002 thumb family [...] excess calories (CMS/HCC) Still working to get Arigo Moderate anxiety Follow with mental health Moderate major depression (CMS/HCC) Follow with mental health documented in this encounter [facility] 05-26-2021 Evaluation note Encounter Date Diagnosis Assessment [...] provided x 1 day, no extension allowed [employer] Other 11-24-2021 Evaluation note* Encounter Date Diagnosis [...] Patient care instructions given in writting by [facility] document. [employer] Other 10-20-2021 Evaluation note* Encounter Date Diagnosis [...] Patient care instructions given in writting by [email or web address] document. [employer] Other Chief complaint+Reason for visit Narrative* Chief Complaint throat pain Reason for Visit Contact with and (ortega spected) exposure to covid-19 Sore throat [facility] Work Phone: Evaluation note* Diagnosis Irregular menses Irregular menstrual cycle Possible , not yet confirmed examination or test, unconfirmed [facility]* Diagnosis Onset Date Resolution Status Contact with and (suspected) exposure to covid-19 acute Sore throat acute [facility] Work Phone: Evaluation note* Diagnosis Onset Date Resolution Status Contact with and (suspected) exposure to covid-19 acute COVID-19 acute Sore throat acute Streptococcal pharyngitis ac chilkoot Influenza A (H1N1) noneactiv e [facility] Work Phone: Evaluation note* Diagnosis Onset Date Resolution Status Contact with and (suspected) exposure to covid-19 acute COVID-19 acute Sore throat acute Streptococcal pharyngitis ac chilkoot Influenza A (H1N1) noneactiv e Injury noneactive [facility] Work Phone: Evaluation note* Diagnosis Onset Date Resolution Status Contact with and (suspected) exposure to covid-19 acute COVID-19 acute Sore throat acute Streptococcal pharyngitis ac chilkoot Influenza A (H1N1) noneactiv e Injury noneactive Left ankle sprain noneactive [facility] Work Phone: Evaluation note* Diagnosis Migraine without [...] Acute cough- Primary documented in this encounter [facility]* Diagnosis Moderate anxiety- Primary Dysmenorrhea Morbid (severe) obesity due to excess calories (CMS/HCC) Moderate major depression (CMS/HCC) Major depressive disorder, single episode, moderate documented in this encounter [facility] HealthcareEvaluation note* Diagnosis Dysmenorrhea documented in this encounter [facility] note* Diagnosis Migraine without aura and [...] (CMS/HCC) Moderate anxiety documented in this encounter [facility] Healthcare[facility] note* Diagnosis Migraine without aura and [...] infection, unspecified Dysmenorrhea documented in this encounter [facility] HealthcareEvaluation note* Diagnosis Migraine without aura and [...] (CMS/HCC) BMI 35.0-35.9,adult documented in this encounter [facility] HealthcareEvaluation note* Diagnosis Migraine without aura and [...] intractable (CMS/HCC)- Primary documented in this encounter [facility] HealthcareEvaluation note* Diagnosis Migraine without aura and without status migrainosus, not intractable (CMS/HCC)- Primary Class 1 obesity due to excess calories without serious comorbidity with body mass index (BMI) of 34.0 to 34.9 in adult Dysmenorrhea Well woman exam with routine gynecological exam- Primary Routine gynecological examination BMI 35.0-35.9,adult Breast lump on right side at 10 o'clock position Lump or mass in breast Urinary tract infection without hematuria, site unspecified- [...] without status migrainosus, not intractable (CMS/HCC)- Primary Morbid (severe) obesity due to excess calories (CMS/HCC) BMI 35.0-35.9,adult Major depressive disorder, single episode, moderate (HCC) (CMS/HCC) Major depressive disorder, single episode, moderate Moderate anxiety Chronic fatigue Other malaise and fatigue Urinary tract infection without hematuria, site unspecified- Primary Urinary tract infection symptoms [facility] - [facility]* Type Description Date Surgical History laparoscopy Knees Right and Lef t Hospitalization History Childbirth Natural x4 [employer] Other History general Narrative - Reported* Type Description Date Medical History herpes Surgical History laparoscopy Knees Right and Lef t Surgical History cholecystectomy Surgical History appendectomy Surgical History right thumb\ Hospitalization History Childbirth Natural x4 [employer] Other Assessments Diagnosis 27 weeks gestation of [...] Documents on File Type Date Recorded Patient Wig Stylist Expl anation Advance Directives and Living Will Power of Cutter Operator Helper Latest Code Status on File Code Status [...] Documents on File Type Date Recorded Patient Wig Stylist Expl anation ACP-Advance Directive ACP-Power of Cutter Operator Helper Latest Code Status on File Code Status [...] RN - 12/06/2018 OUTPATIENT DISCHARGE Jennifer Calvert [facility] or Jluis Dr. Galan Freya Husain Anahy DELANEY Dr. Mira Hagen Freya Conde [facility] ACTIVITY LIMITATIONS: ( z )Up and [...] Follow-up with your OB doctor as specified. [facility] OB Department phone: Dr. Danis Russo [facility] Dr. Pete Fischer [address] [place] DIET Eat a well balanced diet focusing on foods high in fiber and protein. Drink plenty of fluids especially water. To avoid constipation you may take a mild stool softener as recommended by your doctor or hoisting engine operator. ACTIVITY Gradually increase your activity. Resume exercise regimen only after advice by your doctor or hoisting engine operator. Avoid lifting anything heavier than a gallon of milk for SIX weeks. Avoid driving until your doctor or hoisting engine operator has given their approval. Rise slowly [...] medications as recommended by your doctor or hoisting engine operator for pain If you develop a [...] vitamins as directed by your doctor or hoisting engine operator. Refer to the booklet in the folder/binder for more information. If you feel you need more assistance or have questions, please call Gia Walton IBCLC, center consultant, at or the OB department to [...] they become loose or soiled. If used, [place] should be removed by your care provider. [...] documented in this encounter* Instructions* Kika Corey, RN - 10/17/2018 Outpatient Instructions for IM or Subcutaneous Injections [address] [place] [address] You are advised to carry out the [...] ROOM. documented in this encounter* Instructions* Lavinia Addison, RN - 12/04/2018 OUTPATIENT DISCHARGE Jennifer Calvert [facility] or Jluis Freya Husain [facility] ACTIVITY LIMITATIONS: ( X )Up and [...] rate: Baseline Heart Rate: 140 Accelerations: present Barrel Builder Variability: moderate Decelerations: absent Contraction frequency: 2 [...] documented in this encounter* Satnam Orellana RD, SAMANTA - 10/25/2018 8:32 AM EDT MNT provided [...] the referral. Education session duration: 70 minutes; ([id number]). Reminder to ordering Physician/Provider: Diabetes and CKD [...] Amaya Russo APRN - CNM [address] [place] [address] [facility] Reason Comments Gestational Diabetes Status Reason Specialty Diagnoses / Procedures Referred By Contact Referred To Contact Open Specialty Services Required Diabetes Services Diagnoses Abnormal GTT (glucose tolerance test) Amaya Russo APRN - CN [address] [place] [address] [facility] Diabetic Education [address] [place] [id number] Reason Comments Hypertension Reason Onset Date Comments Med Refill 11/10/2023 Reason Comments Med Change Request Reason Comments Weight Gain Reason Comments Med Refill INFORMATION SOURCE (unrecogn ized section and content) DATE CREATED AUTHOR 01/04/2020 [facility] DATE CREATED AUTHOR AUTHOR'S ORGANIZ ATION 07/03/2022 [facility] DATE CREATED AUTHOR AUTHOR'S ORGANIZ ATION 06/23/2023 [facility] DATE CREATED AUTHOR AUTHOR'S ORGANIZ ATION 02/07/2024 [facility] DATE CREATED AUTHOR AUTHOR'S ORGANIZ ATION 05/11/2024 [facility] EPIC Care Teams (unrecognized sec tion and content) Diamond Setter Relationship Specialty Start Date End Date Benji Hinojosa MD [address] [place] [address] PCP - General Cardiology 07/30/22 Kika Guaman NP [address] [place] [address] Referring Physician Nurse Practitioner 07/30/22 Team Status: [...] Guaman Primary Care Provider Active Sta rt: May [...] Attending Provider Active Start: June 16, 2023 Diamond Setter Relationship Specialty Start Date End Date Benji Hinojosa MD [address] [place] [phone] PCP - General Family Medicine 06/23/23 12/05/23 Unallocated, [place], [address] [place] [address], [place] [address] PCP - General Family Medicine 12/06/23 Kika Guaman NP Referring Physician Nurse Practitioner 07/30/22 Kika Guaman NP [address] [place] [phone] Nurse Practitioner Family Medicine 06/23/23 Diamond Setter Relationship Specialty Start Date End Date Benji Hinojosa MD [address] [place] [phone] PCP - General Family Medicine 12/22/23 Kika Guaman NP Referring Physician Nurse Practitioner 07/30/22 Kika Guaman NP [address] [place] [address] Nurse Practitioner Family Medicine 06/23/23 Diamond Setter Relationship Specialty Start Date End Date Benji Hinojosa MD [address] [place] [address] PCP - General Family Medicine 06/23/23 Kika Guaman NP Referring Physician Nurse Practitioner 07/30/22 Kika Guaman NP [address] [place] [address] Nurse Practitioner Family Medicine 06/23/23 Diamond Setter Relationship Specialty Start Date End Date Benji Hinojosa MD [address] [place] [address] PCP - General Family Medicine 06/23/23 Kika Guaman NP Referring Physician Nurse Practitioner 07/30/22 Kika Guaman NP [address] [place] [address] Nurse Practitioner Family Medicine 06/23/23 Diamond Setter Relationship Specialty Start Date End Date Benji Hinojosa MD [address] [place] [address] PCP - General Family Medicine 06/23/23 Kika Guaman NP Referring Physician Nurse Practitioner 07/30/22 Kika Guaman NP [address] [place] [address] Nurse Practitioner Family Medicine 06/23/23 Diamond Setter Relationship Specialty Start Date End Date Benji Hinojosa MD [address] [place] [address] PCP - General Family Medicine 12/22/23 Kika Guaman NP Referring Physician Nurse Practitioner 07/30/22 Kika Guaman NP [address] [place] [phone] Nurse Practitioner Family Medicine 06/23/23 Diamond Setter Relationship Specialty Start Date End Date Benji Hinojosa MD [address] [place] [phone] PCP - General Family Medicine 12/22/23 Kika Guaman NP Referring Physician Nurse Practitioner 07/30/22 Kika Guaman NP [address] [place] [address] Nurse Practitioner Family Medicine 06/23/23 Diamond Setter Relationship Specialty Start Date End Date Benji Hinojosa MD [address] [place] [address] PCP - General Family Medicine 12/22/23 Kika Guaman NP Referring Physician Nurse Practitioner 07/30/22 Kika Guaman NP [address] [place] [address] Nurse Practitioner Family Medicine 06/23/23 Diamond Setter Relationship Specialty Start Date End Date Benji Hinojosa MD [address] [place] [address] PCP - General Family Medicine 12/22/23 Kika Guaman NP Referring Physician Nurse Practitioner 07/30/22 Kika Guaman NP [address] [place] [address] Nurse Practitioner Family Medicine 06/23/23 Diamond Setter Relationship Specialty Start Date End Date Benji Hinojosa MD [address] [place] [address] PCP - General Family Medicine 12/22/23 Kika Guaman NP Referring Physician Nurse Practitioner 07/30/22 Kika Guaman NP [address] [place] [address] Nurse Practitioner Family Medicine 06/23/23 Diamond Setter Relationship Specialty Start Date End Date Benji Hinojosa MD [address] [place] [address] PCP - General Family Medicine 12/22/23 Kika Guaman NP Referring Physician Nurse Practitioner 07/30/22 Kika Guaman NP [address] [place] [address] Nurse Practitioner Family Medicine 06/23/23 Diamond Setter Relationship Specialty Start Date End Date Benji Hinojosa MD [address] [place] [phone] PCP - General Family Medicine 12/22/23 Kika Guaman NP Referring Physician Nurse Practitioner 07/30/22 Kika Guaman NP [address] [place] [address] Nurse Practitioner Family Medicine 06/23/23 Diamond Setter Relationship Specialty Start Date End Date Benji Hinojosa MD [address] [place] [address] PCP - General Family Medicine 12/22/23 Kika Guaman NP Referring Physician Nurse Practitioner 07/30/22 Kika Guaman NP [address] [place] [phone] Nurse Practitioner Family Medicine 06/23/23 Diamond Setter Relationship Specialty Start Date End Date Benji Hinojosa MD [address] [place] [phone] PCP - General Family Medicine 12/22/23 Kika Guaman NP Referring Physician Nurse Practitioner 07/30/22 Kika Guaman NP [address] [place] [phone] Nurse Practitioner Family Medicine 06/23/23 Diamond Setter Relationship Specialty Start Date End Date Benji Hinojosa MD [address] [place] [address] PCP - General Family Medicine 12/22/23 Kika Guaman NP Referring Physician Nurse Practitioner 07/30/22 Kika Guaman NP [address] [place] [address] Nurse Practitioner Family Medicine 06/23/23 Goals (unrecognized [...] BE BASED ON THE PRIMARY CLINICAL RECORDS. [employer] [facility]. provides no warranty or guarantee of the accuracy or completeness of information in this document.
[2024-06-10] MEDS: DEXAMETHASONE SOD PHOS 10 MG/ML VIAL PO (19:08)
[2024-06-10] MEDS: DIPHENHYDRAMINE HCL 25 MG CAPSULE 50 MG PO (19:08)
[2024-06-10] MEDS: KETOROLAC TROMETHAMINE 60 MG/2 ML VIAL IM (19:08)
--- NOTE | 2024-06-10 19:50 | ED.GENADUL1 ---
HPI HPI - General Adult General Chief complaint: Headache Stated complaint: MIGRAINE, NAUSEA Time Seen by Provider: 06/10/24 18:56 Source: patient Mode of arrival: walk-in History of Present Illness HPI narrative: 39-year-old female presents here with a chief complaint of a headache. She states is a typical migraine headache for her she has pain behind the left eye and left side of her face. She has been seen here before for migraine headaches but it has been a long time. She is following up with neurology at this time for her headaches. She has a scheduled appointment coming soon. She denies this sudden onset or thunderclap sensation. She does have nausea and photophobia. No other neurological deficits Related Data Home Medications ?Medication ?Instructions ?Recorded ?Confirmed liraglutide (weight loss) 3 mg/0.5 3 mg subcut Q24H 04/05/23 04/05/23 mL (18 mg/3 mL) subcut pen injector (Saxenda) topiramate 25 mg tablet 50 mg PO Q12H PRN headache 04/05/23 04/05/23 Previous Rx's ?Medication ?Instructions ?Recorded nadlifftxc-lwkpzcvyzzapi-tgwcvjcy 1 cap PO Q6H PRN headache 2 days 04/05/23 50 mg-300 mg-40 mg capsule #10 caps (Fioricet) ondansetron 4 mg disintegrating 4 mg PO Q6H PRN nausea and 04/05/23 tablet vomiting #12 tabs gabapentin 300 mg capsule 300 mg PO BID pain #14 caps 06/10/24 Allergies Allergy/AdvReac Type Severity Reaction Status Date / Time No Known Drug Allergies Allergy Verified 04/05/23 19:36 Opioid HPI Opioid Management Most Recent Opioid Data: Last Pain Scale 10 06/10/24 19:08 06/10/24 Last APR Pain Assessment 06/10/24 19:08 Review of Systems ROS Status of ROS 10 or more systems reviewed and unremarkable except as noted in history and below PFSH PFSH Social History Smoking status: Never smoker Little interest or pleasure in doing things: not at all Feeling down, depressed, or hopeless: not at all Exam Narrative Exam Narrative: All Systems are negative except as noted/marked.All systems reviewed and otherwise negative Nurses note and vital signs reviewed and patient is not hypoxic. General: The patient appears well and in no apparent distress. Patient is resting comfortably on cart. Skin: Warm, dry, no pallor noted. There is no rash noted. Head: Normocephalic, atraumatic Eye: Normal conjunctiva, no drainage, EOMI. PERRL Ears, Nose, Mouth, and Throat: oral mucosa is moist. Nares patent. Mouth without vesicles. Ear canals patent. Tm's without Erythema Cardiovascular: Regular Rate and Rhythm Respiratory: Patient is in no distress, no accessory muscle use, lungs are clear to auscultation, no wheezing, rales or rhonchi Back: non-tender, no CVA tenderness bilaterally to percussion. GI: Normal bowel sounds, no tenderness to palpation, no masses appreciated. No rebound, guarding, or rigidity noted. Musculoskeletal: The patient has no evidence of calf tenderness, no pitting edema, symmetrical pulses noted bilaterally Neurological: A&O x4, normal speech Psychiatric: Cooperative Constitutional Vital Signs, click to edit/add: Last Vital Signs Temp 97.7 F 06/10/24 18:41 Pulse 84 06/10/24 18:41 Resp 18 06/10/24 18:41 BP 155/94 H 06/10/24 18:41 Pulse Ox 98 06/10/24 18:41 O2 Del Method Room Air 06/10/24 18:41 Course Vital Signs Vital signs: Vital Signs Temperature 97.7 F 06/10/24 18:41 Pulse Rate 84 06/10/24 18:41 Respiratory Rate 18 06/10/24 18:41 Blood Pressure 155/94 H 06/10/24 18:41 Pulse Oximetry 98 06/10/24 18:41 Oxygen Delivery Method Room Air 06/10/24 18:41 Temperature 97.7 F 06/10/24 18:41 Pulse Rate 84 06/10/24 18:41 Respiratory Rate 18 06/10/24 18:41 Blood Pressure 155/94 H 06/10/24 18:41 Pulse Oximetry 98 06/10/24 18:41 Oxygen Delivery Method Room Air 06/10/24 18:41 Medical Decision Making MDM Narrative Medical decision making narrative: 39-year-old female presents here with a chief complaint of a headache. She states is a typical migraine headache for her she has pain behind the left eye and left side of her face. She has been seen here before for migraine headaches but it has been a long time. She is following up with neurology at this time for her headaches. She has a scheduled appointment coming soon. She denies this sudden onset or thunderclap sensation. She does have nausea and photophobia. No other neurological deficits Complaint headache medicated here with Toradol, Decadron and Benadryl. There is a limited stack of Phenergan. Patient states pain has somewhat better but is not completely gone. 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 Neurology soon. Patient's vitals are stable she is able to be discharged home. Differential Diagnosis Differential Diagnosis: headache, photophobia Medical Records Medical records reviewed: Yes I reviewed the patient's medical records Lab Data Lab results reviewed: Yes I reviewed the patient's lab results Discharge Plan Discharge Chief Complaint: Headache Clinical Impression: Migraine Patient Disposition: Home, Self-Care Time of Disposition Decision: 19:48 Condition: Good Prescriptions / Home Meds: New gabapentin 300 mg capsule 300 mg PO BID Qty: 14 0RF No Action topiramate 25 mg tablet 50 mg PO Q12H PRN (Reason: headache) Saxenda 3 mg/0.5 mL (18 mg/3 mL) pen injector 3 mg SUBCUT Q24H azivubtxzi-zthmxdakzqefx-dddb [Fioricet] 50-300-40 mg capsule 1 cap PO Q6H PRN (Reason: headache) 2 Days Qty: 10 0RF Rx Instructions: DX: R51 ondansetron 4 mg tablet,disintegrating 4 mg PO Q6H PRN (Reason: nausea and vomiting) Qty: 12 0RF Print Language: Citizen [place] Instructions: Migraine Headache (ED) Referrals: Kika Guaman NP [Primary Care Provider] - 1 week
[2024-06-10 20:14] VITALS: PULSE 80; O2SAT 99
== END 2024-06-10 20:20 | disposition home or self-care (01) ==
PROVIDERS: Emergency Provider Emergency Medicine; PCP Nurse Practitioner
DX: G43.909 Migraine, unspecified, not intractable, without status migrainosus (principal)
CPT/HCPCS: 96372; 99284; J1100; J1885

== ENCOUNTER 2024-06-21 13:31 | Outpatient (OUT) | payer OTHER, SELFPAY ==
[2024-06-21 14:38] LABS: INR 0.94
== END 2024-06-21 13:32 | disposition home or self-care (01) ==
LOC: LAB 13:32
PROVIDERS: PCP Nurse Practitioner; Visit Provider Psychiatry & Neurology Neurology
DX: G93.2 Benign intracranial hypertension (principal)
CPT/HCPCS: 36415; 85610

== ENCOUNTER 2024-12-24 15:20 | Outpatient (OUT) | payer OTHER, SELFPAY ==
--- OUTSIDE RECORDS SUMMARY | 2023-11-29 04:15 | XMS_ITS ---
Author Organization The [facility] [place] Address [address] [place] [address] Care Team Providers Care Materials Mgmt Tech Name Role Phone Kika Guaman CNP Primary Care Provider Unavail Harvinder Freitas Unavailable [phone] REASON FOR VISIT 6 week follow up Encounters Encounter Location Date Provider Diagnosis [facility] (PODIATRY) [address] [place] [address] [place] [address] 11/29/2023 Harvinder Mar Plan Of Treatment No Information Progress Notes * YOVANAKarenmoneDOB: 8 (39 yo F)Acc No.[id number]:11/29/2023 UNLOCKED PROGRESS NOTE Follow Up Patient: Lelo RAMIREZ :?Harvinder Mar DPM, MSDOB:1985???Age: 38 Y???Sex:FemaleDate:11/29/2023hone:[phone]:[phone] [facility], [id number]:Kika Guaman CNP Subjective: * Chief Complaints: * 1 . 6 week follow up. * Medical History: Objective: * Vitals: Assessment: Plan: * Treatment: * * Electronic signature of Harvinder Mar DPM on 12/24/2024 at 03:25 PM ESTSign off status: PendingVisit Status:?N/S N/C (No Show/No Charge) * Provider: Hellen Mar DPM, MS Date: Generated for Printing/Faxing/eTransmitting on:?12/24/2024 03:25 PM EST
--- OUTSIDE RECORDS SUMMARY | 2024-12-24 15:25 | XMS_ITS | Clinical Summary ---
Author Organization [facility] Address [address] [place] [address] Care Team Providers Care Gift Officer Name Role Phone Unavailable Primary Care Provider Unavailabl e Social History Tobacco UseTypesPacks/DayYears UsedDateSmoking Tobacco: Never Assessed CommentsUnknownSex and Gender InformationValueDate RecordedSex Assigned at Not on fileLegal FlmFvhdkg56/29/2022 10:11 PM EDTGender IdentityNot on file Sexual OrientationNot on file Plan of Treatment Not on file
--- OUTSIDE RECORDS SUMMARY | 2024-12-24 15:25 | XMS_ITS | Encounter Summary ---
Author Organization [facility] Address [address] [place] [address] Care Team Providers Care Parts Cleaner Name Role Phone Kika Guaman ADMISSION LIAISON Unavailable [phone] Benji Hinojosa MD Primary Care Provider [phone] Kika Guaman ADMISSION LIAISON Unavailable [phone] Unallocated, [facility] Provider Primary Care Provi migdalia Benji Hinojosa MD Primary Care Provider [phone] Jefferson Gordon DO Unavailable [phone] Encounter Details DateTypeDepartmentCare Team (Latest Contact Info)Njqucikxllx51/26/2024Clinisync Result Encounter [facility] External Department Unsolicited Provider, Generic External Data Social History Tobacco UseTypesPacks/DayYears UsedDateSmoking Tobacco: NeverAlcohol UseStandard Drinks/WeekCommentsNever0 (1 standard drink = 0.6 oz pure alcohol)B1300 Health LiteracyAnswerDate RecordedHow often do you need to have someone help you when you read instructions, pamphlets, or other written material from your doctor or pharmacy?Never2024Humiliation, Afraid, Rape, and Kick questionnaireAnswer Date RecordedWithin the last year, have you been afraid of your partner or ex-partner?No02/22/2023Within the last year, have you been humiliated or emotionally abused in other ways by your partner or ex-partner?No02/22/2023 Within the last year, have you been kicked, hit, slapped, or otherwise physically hurt by your partner or ex-partner?No02/22/2023Within the last year, have you been raped or forced to have any kind of sexual activity by your part ner or ex-partner?No02/22/2023Social Connection and Isolation PanelAnswerDate RecordedIn a typical week, how many times do you talk on the phone with family, friends, or neighbors?Once a week2024How often do you get together with friends or relatives?Once a week2024How often do you attend baptism or baptism services?Never2024Do you belong to any clubs or organizations such as baptism groups, unions, fraMyScienceWork or athletic groups, or school groups?No 2024How often do you attend meetings of the clubs or organizations you belong to?Patient dvewctea72/09/2025re you , , , , never , or living with a partner?Hifnkusm56/09/2025UDIT-C AnswerDate RecordedQ1: How often do you have a drink containing alcohol?Monthly or less2024Q2: How many drinks containing alcohol do you have on a typical day when you are drinking?1 or Q3: How often do you have six or more drinks on one occasion?Never2024Overall Financial Resource Strain (CARDIA) AnswerDate RecordedHow hard is it for you to pay for the very basics like food, housing, medical care, and heating?Somewhat hard2024PHQ-2AnswerDate RecordedPatient Health Questionnaire-2 Mjuia132[facility] [place] of Occupational Health - Occupational Stress QuestionnaireAnswerDate RecordedDo you feel stress - tense, restless, nervous, or anxious, or unable to sleep at night because yourmind is troubled all the time - these days?Rather much2024 Exercise Vital SignAnswerDate RecordedOn average, how many days per week do you engage in moderate to strenuous exercise (like a brisk walk)?3 days2024On average, how many minutes do you engage in exercise at this level?60 min 2024Hunger Vital SignAnswerDate RecordedWithin the past 12 months, you worried that your food would run out before you got the money to buymore. Sometimes true2024Within the past 12 months, the food you bought just didn't last and you didn't have money to get more.Sometimes true2024 PRAPARE - TransportationAnswerDate RecordedIn the past 12 months, has lack of transportation kept you from medical appointments or from getting medications?No 2024In the past 12 months, has lack of transportation kept you from meetings, work, or from getting things needed for daily living?No2024 Housing Stability Vital SignAnswerDate RecordedIn the last 12 months, was there a time when you were not able to pay the mortgage or rent on time?Yes02/22/2023 In the last 12 months, how many places have you lived?In the last 12 months, was there a time when you did not have a steady place to sleep or [facility] ([facility])?No02/22/2023Housing Stability Vital SignAnswerDate RecordedIn the last 12 months, was there a time when you were not able to pay the mortgage or rent on time?Yes2024In the past 12 months, how many times have you moved where you were living?t any time in the past 12 months, were you homeless or living in a care home (including now)?No2024 CommentsNoSex and Gender InformationValueDate RecordedSex Assigned at BirthNot on fileLegal TqsTucyis41/15/2023 6:44 PM EDTGender IdentityNot on file Sexual OrientationNot on filedocumented as of this encounter Functional Status * AUDIT-C ScoreAnswerDate of PyeyjlfnxkTltcfo962/09/2025 9:32 AM Mando, Generic * Q1: How often do you have a drink containing alcohol?AnswerDate of Assessment AuthorMonthly or less2024 9:32 AM Mando, Generic * Q2: How many drinks containing alcohol do you have on a typical day when you are drinking?AnswerDate of AssessmentAuthor1 or 9:32 AM Nataliya Weiss * Q3: How often do you have six or more drinks on one occasion?AnswerDate of MumcwcrjfiMflpphUufyf46/09/2025 9:32 AM Nataliya Gilmore documented as of this encounter Plan of Treatment Not on file documented as of this encounter Procedures Procedure NamePriorityDate/TimeAssociated DiagnosisCommentsMR ANKLE LT WO CON 10/17/2023 8:51 PM EDT documented in this encounter Results * MR ANKLE LT WO CON (10/17/2023 8:51 PM EDT)Anatomical RegionLateralityModality OtherSpecimen (Source)Anatomical Location / LateralityCollection Method / VolumeCollection TimeReceived Time10/17/2023 8:51 PM EDT Narrative 10/17/2023 8:54 PM EDT [facility] ?[address] ? [place] [address] ? Magnetic Resonance Report ? Signed ? Patient: YOVANALELO ?MR#: [id number] ?? : 1985 ?Acct:[id number] ?? Age/Sex: 38 / F ?ADM Date: 10/17/23 ?? Loc: MRI ? Attending Dr: Dominick Love ? Ordering Physician: Dominick Love ?? Date of Service: 10/17/23 ?? Procedure(s): MR ankle LT wo con ?? Accession Number(s): [id number] ? cc: Kika Guaman NP; Dominick Love ? [facility] ? [facility] ? [place] [address] ? Patient Name: ?? LELO YEN ? MRN: [id number] ? date: 1985 ?Sex: F ?? Assigned Patient Location: MRI ?? Current Patient Location: MRI ?? Accession/Order Number: [id number] ?? Exam Date: 10/17/2023 ??09:55 ?Report Date: 10/17/2023 ??20:51 ? At the request of: ?? DOMINICK ??KATE ? Procedure: ??MR ankle LT wo con ? EXAM: MR ankle LT wo con ? HISTORY: Left Ankle Instability, Left Peroneal Tendonitis ? COMPARISON: 07/05/2023 ? TECHNIQUE: MRI images obtained with multiple sequences. MRI of the left ankle ?? without contrast. Sequences obtained by standard department protocol. ? FINDINGS: ?? Achilles tendon is intact. Plantar fascia is intact. ? No significant degeneration of the ankle joint and subtalar joint. ? Extensor, flexor and peroneal tendons are intact. ? Anterior and posterior syndesmotic ligaments are intact. ? Deltoid ligament fibers are intact. Anterior talofibular, posterior ?? talofibular ?? and calcaneofibular ligaments are intact. ? Type II accessory navicular bone. ? No acute fracture. ? No significant joint degeneration. ? Normal alignment of the ankle joint, hindfoot and midfoot. ? MR/MR ankle LT wo con ?? IMPRESSION: ? 1. Extensor, flexor and peroneal tendons are intact. ? 2. No acute ligamentous abnormality. ? 3. Normal alignment of the hindfoot and midfoot. ? 4. No significant joint degeneration. ? Electronically authenticated by: FRANCISCO ??ASHLY ?? Date: 10/17/2023 ??20:51 ? Dictated By: ?Francisco Patel M.D. ? Signed By: ?10/17/232053 ? DD/ 50 ? TD/TT: ? Chief Ophthalmic Technician: Procedure Note Radiology, Radiologist, MD - 10/17/2023 [facility] [place] [id number] Magnetic Resonance Report Signed Patient: LELO YEN JMR#: [id number] : 1985Acct:[id number] Age/Sex: 38 / FADM Date: 10/17/23 Loc: MRI Attending Dr: Dominick Love Ordering Physician: Dominick Love Date of Service: 10/17/23 Procedure(s): MR ankle LT wo con Accession Number(s): [id number] cc: Kika Guaman ADMISSION LIAISON; Dominick Love The [address] [address] Patient Name: LELO YEN MRN: [id number] date: 1985 Sex: F Assigned Patient Location: MRI Current Patient Location: MRI Accession/Order Number: [id number] Exam Date: 10/17/2023 09:55 Report Date: 10/17/2023 20:51 At the request of: DOMINICK LOVE Procedure: MR ankle LT wo con EXAM: MR ankle LT wo con HISTORY: Left Ankle Instability, Left Peroneal Tendonitis COMPARISON: 07/05/2023 TECHNIQUE: MRI images obtained with multiple sequences. MRI of the leftankle without contrast. Sequences obtained by standard department protocol. FINDINGS: Achilles tendon is intact. Plantar fascia is intact. No significant degeneration of the ankle joint and subtalar joint. Extensor, flexor and peroneal tendons are intact. Anterior and posterior syndesmotic ligaments are intact. Deltoid ligament fibers are intact. Anterior talofibular, posterior talofibular and calcaneofibular ligaments are intact. Type II accessory navicular bone. No acute fracture. No significant joint degeneration. Normal alignment of the ankle joint, hindfoot and midfoot. MR/MR ankle LT wo con IMPRESSION: 1. Extensor, flexor and peroneal tendons are intact. 2. No acute ligamentous abnormality. 3. Normal alignment of the hindfoot and midfoot. 4. No significant joint degeneration. Electronically authenticated by: FRANCISCO PATEL Date: 10/17/2023 20:51 Dictated By: Francisco Patel M.D. Signed By:10/17/232053 DD/ 50 TD/TT: Chief Ophthalmic Technician: Authorizing ProviderResult TypeResult StatusGeneric External Data Provider CLINISYNC IMAGINGFinal Result documented in this encounter Visit Diagnoses Not on filedocumented in this encounter Care Teams Team MemberRelationshipSpecialtyStart DateEnd Date Benji Hinojosa MD PCP - GeneralFamily Medicine06/22/2409 Unallocated, Guillermo Perry MD [address] [place] [address] PCP - GeneralFamily Bxdbnjkc35/15/ Benji Hinojosa MD PCP - GeneralFamily Ctpcgevs22/31/24 Kika Guaman NP Referring PhysicianNurse Practitioner07/30/22 Kika Guaman NP Nurse PractitionerFami Medicine06/23/23 Jefferson Gordon DO [address] [facility] [address] [place] [address] Referring PhysicianNeurology06/18/24documented as of this encounter
--- OUTSIDE RECORDS SUMMARY | 2024-12-24 15:25 | XMS_ITS | Encounter Summary ---
Author Organization [facility] Address [address] [place] [address] Care Team Providers Care Commercial Drone Software Developer Name Role Phone Kika Guaman LAST CODE STRIPER Unavailable [phone] Benji Hinojosa MD Primary Care Provider [phone] Benji Hinojosa MD Primary Care Provider [phone] Kika Guaman LAST CODE STRIPER Unavailable [phone] Unallocated, [facility] Provider Primary Care Provi migdalia Benji Hinojosa MD Primary Care Provider [phone] Jefferson Gordon DO Unavailable [phone] Encounter Details DateTypeDepartmentCare Team (Latest Contact Info)Tbqzgdxgevk44/21/2024Clinisync Result Encounter [facility] External Department Unsolicited Kika Guaman NP [address] [place] [phone] Social History Tobacco UseTypesPacks/DayYears UsedDateSmoking Tobacco: NeverAlcohol [...] relatives?Once a week2024How often do you attend episcopalian or advent services?Never2024Do you belong to any clubs or organizations such as episcopalian groups, unions, fraternal or athletic groups, or school groups?No 2024How often do you attend meetings of the clubs or organizations you belong to?Patient tujuqojs51/09/2025re you , , , , never , or living with a partner?Qwobxuvr35/09/2025UDIT-C AnswerDate RecordedQ1: How often do you have [...] care, and heating?Somewhat hard2024PHQ-2AnswerDate RecordedPatient Health Questionnaire-2 Yaaba052Finintermountain medical center [place] of Occupational Health - Occupational Stress QuestionnaireAnswerDate [...] steady place to sleep or slept in [facility] [place] (including now)?No02/22/2023Housing Stability Vital SignAnswerDate RecordedIn the last 12 months, was there a time when you were not able to pay the mortgage or rent on time?Yes2024In the past 12 months, how many times have you moved where you were living?t any time in the past 12 months, were you homeless or living in a halfway (including now)?No2024 CommentsNoSex and Gender InformationValueDate RecordedSex Assigned at BirthNot on fileLegal BqvOzalgh52/15/2023 6:44 PM EDTGender IdentityNot on file Sexual OrientationNot on filedocumented as of this encounter Functional Status * AUDIT-C ScoreAnswerDate of JgghibvrqdTdtntb944/09/2025 9:32 AM Nataliya Gilmore * Q1: How often do you have a drink containing alcohol?AnswerDate of Assessment AuthorMonthly or less2024 9:32 AM Mando Generic * Q2: How many drinks containing alcohol do you have on a typical day when you are drinking?AnswerDate of AssessmentAuthor1 or 9:32 AM EST Monika Generic * Q3: How often do you have six or more drinks on one occasion?AnswerDate of FjznlajswiLacyxwOtush26/09/2025 9:32 AM Mando Generic * Over the past 2 weeks, how often have you been bothered by any of the following problems?QuestionAnswerDate of AssessmentAuthorLittle interest or pleasure in doing thingsSeveral days06/23/2023 10:19 AM Ramonita Delgado, SEBASTIANeeling down, depressed, or hopelessSeveral days06/23/2023 10:19 AM Ramonita Oquendo MAPatient Health Questionnaire-2 Llwpo762 10:19 AM Ramonita Delgado MA * How difficult have these problems made it for you to do your work, take care of things at home, or get along with other people?AnswerDate of Assessment AuthorNot difficult at all06/23/2023 10:19 AM Ramonita Delgado MA documented as of this encounter Plan of Treatment Not on file documented as of this encounter Procedures Procedure NamePriorityDate/TimeAssociated DiagnosisCommentsMM TOMOSYNTHESIS DIAGNOSTIC BI04/13/2023 4:07 PM EST documented in this encounter Results * MM TOMOSYNTHESIS DIAGNOSTIC BI (04/13/2023 4:07 PM EST)Anatomical Region LateralityModalityOtherSpecimen (Source)Anatomical Location / Laterality Collection Method / VolumeCollection TimeReceived Time04/13/2023 4:07 PM EST Narrative 04/13/2023 4:08 PM EST [facility] ?[address] ? [place] [address] ? Mammography Report ? Signed ? Patient: YOVANA,ROBLES Barraza ?MR#: [id number] ?? : 1985 ?Acct:[id number] ?? Age/Sex: 38 / F ?ADM Date: 04/13/24 ?? Loc: MAMMO ? Attending Dr: Kika Guaman LAST CODE STRIPER ? Ordering Physician: Kika Guaman LAST CODE STRIPER ?Results: ? Date of Service: 04/13/23 ?Follow Up: ? Procedure(s): MM tomosynthesis diagnostic BI ?? Accession Number(s): [id number] ? cc: Kika Guaman LAST CODE STRIPER ? Patient Name: ? ROBLES YEN ? MR#: [id number] ? : 1985 ? Exam Date: 04/13/2023 ?? Ordering Doctor: GONZALEZ Guaman CNP ? RADIOLOGY REPORT ? PROCEDURE: ? MM TOMOSYNTHESIS DIAGNOSTIC BI, 04/13/2023, 09:16 ?? US BREAST RT LIMITED, 04/13/2023, 09:34 ? COMPARISON: ? None. ? INDICATIONS: ? Right Breast Lump ? Calculator Name ? NCI Breast Cancer Risk Assessment Tool ?? 5 Year Breast Cancer Risk ? 0.30% ?? Lifetime Breast Cancer Risk ? 10.00% ?? Personal Breast Cancer ?No ?? Personal Ovarian Cancer ? No ?? Treatments ? None ?? Family Cancers ? Aunt-maternal with breast cancer at age 50; Aunt-maternal ?? with breast cancer at age 22; Uncle-maternal with prostate cancer at age 70. ? LOCATION: ? [facility] ? BREAST COMPOSITION: ? Scattered areas fibroglandular density. ? FINDINGS: ? DIAGNOSTIC CATEGORY 1--NEGATIVE. ? RIGHT BREAST: ??No significant suspicious finding on mammographic evaluation. ? Ultrasound evaluation demonstrates normal appearing fibroglandular tissue ?? within the upper-outer quadrant or patient localizes the palpable lump. ? LEFT BREAST: ??No significant suspicious finding. ? RECOMMENDATIONS: ? CLINICAL EVALUATION. ? PLEASE NOTE: ??A NORMAL MAMMOGRAM DOES NOT EXCLUDE THE POSSIBILITY OF BREAST ?? CANCER. ??A CLINICALLY SUSPICIOUS PALPABLE LUMP SHOULD BE BIOPSIED. ? Dictated by: Robert Hester M.D. on 04/13/2023 at 16:03 ? Approved by: Robert Hester M.D. on 04/13/2023 at 16:07 ? Dictated By: ?Robert Hester M.D. ? Signed By: ?04/13/23 1608 ? DD/ 1607 ? TD/TT: ? Education Administrator: Procedure Note Radiology, Radiologist, MD - 04/13/2023 [place] [address] Mammography Report Signed Patient: ROBLES YEN JMR#: [id number] : 1985Acct:[id number] Age/Sex: 38 / FADM Date: 04/13/23 Loc: MAMMO Attending Dr: Kika Guaman LAST CODE STRIPER Ordering Physician: Kika Guaman NPResults: Date of Service: 04/13/23Follow Up: Procedure(s): MM tomosynthesis diagnostic BI Accession Number(s): [id number] cc: Kika Guaman NP Patient Name: ROBLES YEN MR#: [id number] : 1985 Exam Date: 04/13/2023 Ordering Doctor: GONZALEZ Guaman CNP RADIOLOGY REPORT PROCEDURE: MM TOMOSYNTHESIS DIAGNOSTIC BI, 04/13/2023, 09:16 US BREAST RT LIMITED, 04/13/2023, 09:34 COMPARISON: None. INDICATIONS: Right Breast Lump Calculator Name NCI Breast Cancer Risk Assessment Tool 5 Year Breast Cancer Risk 0.30% Lifetime Breast Cancer Risk 10.00% Personal Breast Cancer No Personal Ovarian Cancer No Treatments None Family Cancers Aunt-maternal with breast cancer at age 50;Aunt-maternal with breast cancer at age 22; Uncle-maternal with prostate cancer at age70. LOCATION: [facility] BREAST COMPOSITION: Scattered areas fibroglandular density. FINDINGS: DIAGNOSTIC CATEGORY 1--NEGATIVE. RIGHT BREAST: No significant suspicious finding on mammographicevaluation. Ultrasound evaluation demonstrates normal appearing fibroglandular tissue within the upper-outer quadrant or patient localizes the palpable lump. LEFT BREAST: No significant suspicious finding. RECOMMENDATIONS: CLINICAL EVALUATION. PLEASE NOTE: A NORMAL MAMMOGRAM DOES NOT EXCLUDE THE POSSIBILITY OFBREAST CANCER. A CLINICALLY SUSPICIOUS PALPABLE LUMP SHOULD BE BIOPSIED. Dictated by: Robert Hester M.D. on 04/13/2023 at 16:03 Approved by: Robert Hester M.D. on 04/13/2023 at 16:07 Dictated By: Robert Hester M.D. Signed By:04/13/23 1608 DD/ 1607 TD/TT: Education Administrator: Authorizing ProviderResult TypeResult StatusLisa Aicupper allegheny health systemz NPCLINISYNC IMAGING Final Result documented in this encounter Visit Diagnoses Not on filedocumented in this encounter Care Teams Team MemberRelationshipSpecialtyStart DateEnd Date Benji Hinojosa MD PCP - GeneralCardiology Benji Hinojosa MD PCP - GeneralFamily Medicine06/22/2409 Unallocated, Guillermo Perry MD [address] [place] [address] PCP - GeneralFamily Zixcvfix74/15/ Benji Hinojosa MD PCP - GeneralFamily Jdtfkbiu62/31/24 Kika Guaman NP Referring PhysicianNurse Practitioner07/30/22 Kika Guaman NP Nurse PractitionerFamily Medicine06/23/23 Jefferson Gordon DO [address] [place] [address] Referring PhysicianNeurology06/18/24documented as of this encounter
--- OUTSIDE RECORDS SUMMARY | 2024-12-24 15:25 | XMS_ITS | Clinical Summary ---
Author Organization [facility] Address [address] [place] [address] Care Team Providers Care Legislative Correspondent Name Role Phone Kika Guaman DIAGNOSTIC IMAGING MANAGER Unavailable [phone] Kika Guaman NP Unavailable [phone] Benji Hinojosa MD Primary Care Provider [phone] Jefferson Centeno DO Unavailable [phone] Allergies No known active allergies Medications MedicationSigDispense QuantityRefillsLast FilledStart DateEnd DateStatus hydrOXYzine pamoate (Vistaril) 25 MG capsule 4Active MV & Min w/FA-DHA ( Gummies) 0.18-25 MG chewable tablet 4Active valACYclovir (Valtrex) 500 MG tablet Take 500 mg by mouth Daily5Active Atogepant (Qulipta) 60 MG tablet Indications:MigraineTake 60 mg by mouth Daily 90 tablet 5Active FLUoxetine (PROzac) 20 MG capsule Indications:Major depressive disorder, single episode, moderate (HCC),Moderate anxietyTake 1 capsule (20 mg) by mouth Daily 90 capsule 5Active acetaZOLAMIDE (Diamox) 250 MG tablet Take 250 mg by mouth in the morning and 250 mg before bedtime.5Active Active Problems ProblemNoted DateDiagnosed DateChronic pain of left knee10/08/2024 Assessment & Plan (10/08/2024 9:30 AM EDT): Will trial the brace prn and if worsening will contact office Major depressive disorder, single episode, silakqrg47/09/2025 Assessment & Plan (10/08/2024 9:29 AM EDT): Current med: fluoxetine, meclizine prn No changes in meds at this time Assessment & Plan (07/05/2024 9:45 AM EDT): Current med: fluoxetine PHQ 9=12 Feels good, no dose change Fu in 3 months Assessment & Plan (05/09/2024 10:49 AM EDT): Current med: sertraline PHQ 9=13 Stop sertraline, trial fluoxetine at 20mg Take medication only as directed. This medication will take approximately 4-6 weeks to become effective. If any suicidal thoughts, thoughts of hurting others, or hallucinations contact the office or proceed to the Emergency Room for mental health evaluation. Medication may cause dry mouth, dizziness, and in some cases worsening in depression symptoms. Please contact the office if these occur. Fu in 8 weeks Assessment & Plan (2024 11:30 AM EST): Is currently taking sertraline for this, tolerating well Moderate redehwt0111/09/2023 Assessment & Plan (10/08/2024 9:29 AM EDT): Current med: fluoxetine prn meclizine No dose changes needed Assessment & Plan (07/05/2024 9:45 AM EDT): Current med: fluoxetine CAYLA 7=7 Much improved No dose change Fu in 3 months Assessment & Plan (05/09/2024 10:49 AM EDT): Current med: Sertraline CAYLA 7=14 Stop sertraline, trial fluoxetine at 20mg. Take medication only as directed. This medication will take approximately 4-6 weeks to become effective. If any suicidal thoughts, thoughts of hurting others, or hallucinations contact the office or proceed to the Emergency Room for mental health evaluation. Medication may cause dry mouth, dizziness, and in some cases worsening in depression symptoms. Please contact the office if these occur. Fu in 8 weeks Assessment & Plan (2024 11:31 AM EST): Current medication sertraline at 75mg daily Follow with mental health Assessment & Plan (11/09/2023 2:25 PM EDT): Follow with mental health Morbid (severe) obesity due to excess /02/2024 Assessment & Plan (10/08/2024 9:20 AM EDT): Discussed with patient their BMI (actual, verses recommended). We have also discussed lifestyle modifications: attempts to perform physical activity as chronic conditions allow, also to monitor dietary intake: increasing protein/fruits/veggies and lowering carb intake (unless contraindicated). Limit sodas, juices, and sugary drinks. Is prescribed Wegovy at max dose Has lost approx 30 pounds, starting 03/17 Assessment & Plan (07/05/2024 9:45 AM EDT): Discussed with patient their BMI (actual, verses recommended). We have also discussed lifestyle modifications: attempts to perform physical activity as chronic conditions allow, also to monitor dietary intake: increasing protein/fruits/veggies and lowering carb intake (unless contraindicated). Limit sodas, juices, and sugary drinks. Is prescribed Wegovy, will increase to max dose Assessment & Plan (05/09/2024 10:48 AM EDT): Discussed with patient their BMI (actual, verses recommended). We have also discussed lifestyle modifications: attempts to perform physical activity as chronic conditions allow, also to monitor dietary intake: increasing protein/fruits/veggies and lowering carb intake (unless contraindicated). Limit sodas, juices, and sugary drinks. I have ordered Wegovy We did call [facility], spoke w pharmacist, they have the script, will need to order and it shouldbe there for crop picker tomorrow Assessment & Plan (04/10/2024 9:33 AM EST): Discussed with patient their BMI (actual, verses recommended). We have also discussed lifestyle modifications: attempts to perform physical activity as chronic conditions allow, also to monitor dietary intake: increasing protein/fruits/veggies and lowering carb intake (unless contraindicated). Limit sodas, juices, and sugary drinks. Continue with wegovy currently week #2 of 0.5mg dose Will send in new script 1mg Assessment & Plan (2024 10:34 AM EST): Discussed with patient their BMI (actual, verses recommended). We have also discussed lifestyle modifications: attempts to perform physical activity as chronic conditions allow, also to monitor dietary intake: increasing protein/fruits/veggies and lowering carb intake (unless contraindicated). Limit sodas, juices, and sugary drinks. Currently on Saxenda , insurance will not cover Wegovy. But has new insurance so we will try again Assessment & Plan (11/09/2023 2:25 PM EDT): Still working to get saxenda Assessment & Plan (09/28/2023 10:54 AM EDT): Did well on saxenda, then stopped working and she started gaining weight Insurance will not approve wegovy, so we will trial to then again trial to get saxenda approved Does not feel an increase in appetite 09/11: weight 198, with BMI 35, 04/15 weight 179 with BMI 31, current weight 206 w BMI 36 Assessment & Plan (08/23/2023 10:27 AM EDT): Did well on saxenda, then stopped working and she started gaining weight We will trial wegovy at 0.25mg once a week Encounter for control pills ofrrdkpyrte64/21/3068Irhcyxk07/28/2024MI 35.0-35.9,adult03/23/2023 Assessment & Plan (07/12/2023 2:12 PM EDT): Is gaining weight with saxenda, we will take off med for the next 6 weeks then restart Breast lump on right side at 10 o'clock hmjnrijt86/31/2024Well woman exam with routine gynecological exam03/23/2023 Assessment & Plan (03/23/2023 11:32 AM EST): Fu as per PAP indications Monthly BSE Health diet/exercise Rynfnnbbgqeq38/03/2024 Assessment & Plan (11/09/2023 2:24 PM EDT): Refill BCP Assessment & Plan (02/23/2023 8:33 AM EST): Continue with use of BCP, needs to schedule a PAP test with me for next visit Internal derangement of left knee02/17/2023Osteoarthritis of knee, unspecified 02/17/2023 Assessment & Plan (09/28/2023 7:11 AM EDT): Noted on xray Migraine without aura and without status migrainosus, not yvzeqqoqjhz91/21/2023 Assessment & Plan (10/08/2024 9:31 AM EDT): Trialed: nsaids, imitrex, ubrelvey, topamax CT head: 04/05/23: normal Current meds: Jerod Has seen dr centeno, had a lumbar puncture to evaluate for ICH Is on diamox Cont fu with them, also talk to neuro about back pain that occurred with LBP Assessment & Plan (07/05/2024 9:45 AM EDT): Trialed: nsaids, imitrex, ubrelvey, topamax CT head: 04/05/23: normal Current meds: Jerod Has seen dr centeno, going to have a lumbar puncture to evaluate for ICH FMLA paper work is completed Continue with neurology Assessment & Plan (05/09/2024 6:35 AM EDT): Trialed: nsaids, imitrex, ubrelvey, topamax CT head: 04/05/23: normal Current meds: Qulipta did help, will continue MRI brain: indicated possible intracranial hypertension, referred to neurology, scheduled with Dr Peters 06/18/24 Assessment & Plan (04/10/2024 9:33 AM EST): Trialed: nsaids, imitrex, ubrelvey, topamax CT head: 04/05/23: normal Last appt trialed some qulipta No MRI brain at [facility] Qulipta did help, will continue Order MRI brain without Assessment & Plan (2024 11:36 AM EST): Trial sample of qulipta 60 mg daily #2 samples, lot [id number], exp 11/16 Trialed: nsaids, imitrex, ubrelvey, topamax CT head: 04/05/23: normal MRI brain: reports has had one in the last year or so, will attempt to track down. Left message [facility] radiology for MRI report Assessment & Plan (02/23/2023 8:32 AM EST): Will increase topirimate to 50mg at HS Fu in 8 weeks Jsmpjovilbal66/14/2019Herpes virus infection in mother during ([facility])01/10/2016Anogenital herpes simplex virus (HSV) /18/2016 Overview (02/17/2023): Treated since 01/04 Overview: Treated since 01/04 Genital herpes sltpyve5803/29/2013 Resolved Problems ProblemNoted DateDiagnosed DateResolved DateUTI (urinary tract infection) 504/03/2024Urinary tract infection shshmytr60/5Acute non-recurrent maxillary eubyaztmf98/ Assessment & Plan (04/10/2024 9:35 AM EST): Fluids, rest Atb, fu if not better Acute coughModerate major Assessment & Plan (11/09/2023 2:25 PM EDT): Follow with mental health Non-iomwkp98nxiety and raznbgwswo83/02/202412/ Assessment & Plan (09/28/2023 10:55 AM EDT): We will stop her sertraline at there is absolutely no change in her symptoms We will trial her fluoxetine 20mg Fu in 6 weeks Assessment & Plan (08/23/2023 10:27 AM EDT): Will start sertraline at 25mg for 7 days, then increase to 50mg daily Refer to counseling Take medication only as directed. This medication will take approximately 4-6 weeks to become effective. If any suicidal thoughts, thoughts of hurting others, or hallucinations contact the office or proceed to the Emergency Room for mental health evaluation. Medication may cause dry mouth, dizziness, and in some cases worsening in depression symptoms. Please contact the office if these occur. UTI (urinary tract infection)/ Assessment & Plan (07/12/2023 2:11 PM EDT): Only symptom is malodorus urine +Nitrates Start Macrobid, fluids, fu if not better Left ankle vgjzsrvu48/ Assessment & Plan (06/23/2023 10:50 AM EDT): Applied noelle wrap, cont walking boot Recheck xray, off work 2 more weeks Ice 3-4 times daily for 20 minutes each, and ibuprofen OTC every 8 hours w food no matter if havingpain or not Fu in 2 weeks Contusion of left knee/08/2023 Assessment & Plan (06/23/2023 10:50 AM EDT): Will check xray Sprain of left ankle/ Assessment & Plan (08/23/2023 10:24 AM EDT): Continue with Zaid for treatment plan, she is off work until her next appt with him early September FMLA papers completed Assessment & Plan (07/12/2023 2:11 PM EDT): Continue with Zaid for treatment plan, she is off work until her next appt with him Posterior left knee painStatus post bilateral salpingectomy lass 1 obesity due to excess calories without serious comorbidity with body mass index (BMI) of 34.0 to 34.9 in adult02/23/2023 08/23/2023 Assessment & Plan (02/23/2023 8:32 AM EST): Continue with saxenda at 3mg daily Acute pain of left kneeain of left calf Gestational diabetes mellitus (GDM) affecting seventh ([facility]) Encounters DateTypeDepartmentCare QyvvRmhxhvrolrs92/18/2025 9:00 AM EDTOffice Visit [facility] [address] [place] [address] Kika Guaman NP Moderate anxiety (Primary Dx); Morbid (severe) obesity due to excess calories ([facility]); Major depressive disorder, single episode, moderate ([facility]); Chronic pain of left knee; Migraine without aura and without status migrainosus, not ekqhndrcwdf74/18/2025 Bamboo flowsheet [facility] [address] [place] [id number] Kika Guaman NP 10/01/2024Travelfrom Last 3 Months Immunizations ImmunizationAdministration DatesNext ExoMAF3109/08/1987DTaP, Nzqxkybxjbf55/30/1993 ,09/17/1988,1987,1987,1987HiB, vrvdmcfxjuy67/28/1989MMR 06/19/1999,09/17/1988OPV1987Polio, Fjnntrxflct57/30/1993,1987, 1987,1987Rho(D)-IG IM05/08/2014Tdap102/22/2018,02/11/2016,05/30/2010 Tetanus toxoid, lkhonjcm43/25/2003 Family History Medical HistoryRelationNameCommentsThyroid diseaseCousinMultiple sclerosisFather OtherFatherVisibly impairedThyroid diseaseMaternal GrandmotherAnemiaSister RelationNameStatusCommentsCousinAliveFatherAliveMaternal GrandmotherMotherAlive Sister Social History Tobacco UseTypesPacks/DayYears UsedDateSmoking Tobacco: Never Tobacco Cessation:Counseling Given: Not Answered Alcohol UseStandard Drinks/WeekCommentsNever0 (1 standard drink = 0.6 oz pure alcohol)B1300 Health LiteracyAnswerDate RecordedHow often do you need to have someone help you when you read instructions, pamphlets, or other written material from your doctor or pharmacy?Never2024Humiliation, Afraid, Rape, and Kick questionnaireAnswerDate RecordedWithin the last year, have you been afraid of your partner or ex-partner?No02/22/2023Within the last year, have you been humiliated or emotionally abused in other ways by your partner or ex-partner?No02/22/2023Within the last year, have you been kicked, hit, slapped, or otherwise physically hurt by your partner or ex-partner?No02/22/2023Within the last year, have you been raped or forced to have any kind of sexual activity by your partner or ex-partner?No02/22/2023Social Connection and Isolation Panel AnswerDate RecordedIn a typical week, how many times do you talk on the phone with family, friends, or neighbors?Once a week2024How often do you get together with friends or relatives?Once a week2024How often do you attend spiritism or restoration services?Never2024Do you belong to any clubs or organizations such as spiritism groups, unions, fraternal or athletic groups, or school groups?No2024How often do you attend meetings of the clubs or organizations you belong to?Patient jgijtvfn74/09/2025re you , , , , never , or living with a partner?Dwvxlpga64/09/2025 AUDIT-CAnswerDate RecordedQ1: How often do you have a drink containing alcohol? Monthly or less2024Q2: How many drinks containing alcohol do you have on a typical day when you are drinking?1 or Q3: How often do you have six or more drinks on one occasion?Never2024Overall Financial Resource Strain (CARDIA)AnswerDate RecordedHow hard is it for you to pay for the very basics like food, housing, medical care, and heating?Somewhat hard2024PHQ-2Answer Date RecordedPatient Health Questionnaire-2 Zbxkh077Finj[facility] [place] of Occupational Health - Occupational Stress QuestionnaireAnswerDate [...] steady place to sleep or slept in ashelter (including now)?No02/22/2023Housing Stability Vital SignAnswerDate RecordedIn the last 12 months, was there a time when you were not able to pay the mortgage or rent on time?Yes2024In the past 12 months, how many times have you moved where you were living?t any time in the past 12 months, were you homeless or living in a senior care (including now)?No2024 CommentsNoSex and Gender InformationValueDate RecordedSex Assigned at BirthNot on fileLegal PoqAyqais75/15/2023 6:44 PM EDTGender IdentityNot on file Sexual OrientationNot on file Last Filed Vital Signs Vital SignReadingTime TakenCommentsBlood Drrvtjwm100/7808 9:05 AM EDT Vdwdo5694 9:05 AM DITYmjlwktmrar06.9 ??C (98.5 ??F)10/08/2024 9:05 AM EDTRespiratory Avzj965310/08/2024 9:05 AM EDTOxygen Sfjhszyjjh13%10/08/2024 9:05 AM EDTInhaled Oxygen Concentration--Xxhtkv97.1 kg (167 lb 12.8 oz)10/08/2024 9:05 AM BBNJxiewy226 cm (5' 3 )06/18/2024 12:27 PM EDTBody Mass Index29.72 06/18/2024 12:27 PM EDT Plan of Treatment Not on file Insurance Care Teams Team MemberRelationshipSpecialtyStart DateEnd Date Benji Hinojosa MD PCP - GeneralFamily Pruxfvaz33/31/24 Kika Guaman NP Referring PhysicianNurse Practitioner07/30/22 Kika Guaman NP Nurse PractitionerFavaly Medicine06/23/23 Jefferson Centeno DO [address] [place] [address] Referring PhysicianNeurology06/18/24
--- OUTSIDE RECORDS SUMMARY | 2024-12-24 15:25 | XMS_ITS | Encounter Summary ---
Author Organization [facility] Address [address] [place] [address] Care Team Providers Care Senior Java Web Developer Name Role Phone Kika Guaman TUB CHUCKER Unavailable [phone] Benji Hinojosa MD Primary Care Provider [phone] Kika Guaman TUB CHUCKER Unavailable [phone] Unallocated, [facility] Provider Primary Care Provi migdalia Benji Hinojosa MD Primary Care Provider [phone] Jefferson Gordon DO Unavailable [phone] Encounter Details DateTypeDepartmentCare Team (Latest Contact Info)Khkojgzxtuq73/14/2024Clinisync Result Encounter [facility] External Department Unsolicited Provider, [...] relatives?Once a week2024How often do you attend jew or hindu services?Never2024Do you belong to any clubs or organizations such as jew groups, unions, fraTexas [facility] or athletic groups, or school groups?No 2024How often do you attend meetings of the clubs or organizations you belong to?Patient lcsnddof92/09/2025re you , , , , never , or living with a partner?Iffubhzu30/09/2025UDIT-C AnswerDate RecordedQ1: How often do you have [...] care, and heating?Somewhat hard2024PHQ-2AnswerDate RecordedPatient Health Questionnaire-2 Bnaxl233Finacadia healthcare [place] of Occupational Health - Occupational Stress QuestionnaireAnswerDate [...] steady place to sleep or slept in city emergency hospitaler (including now)?No02/22/2023Housing Stability Vital SignAnswerDate RecordedIn the last 12 months, was there a time when you were not able to pay the mortgage or rent on time?Yes2024In the past 12 months, how many times have you moved where you were living?t any time in the past 12 months, were you homeless or living in a long-term (including now)?No2024 CommentsNoSex and Gender InformationValueDate RecordedSex Assigned at BirthNot on fileLegal MriLqigno18/15/2023 6:44 PM EDTGender IdentityNot on file Sexual OrientationNot on filedocumented as of this encounter Functional Status * AUDIT-C ScoreAnswerDate of QsfgpundfrDfyzgh407/09/2025 9:32 AM Mando, Generic * Q1: How often do you have a drink containing alcohol?AnswerDate of Assessment AuthorMonthly or less2024 9:32 AM Mando, Generic * Q2: How many drinks containing alcohol do you have on a typical day when you are drinking?AnswerDate of AssessmentAuthor1 or 9:32 AM Natailya Weiss * Q3: How often do you have six or more drinks on one occasion?AnswerDate of AzgoztmakmApufijIgqzs93/09/2025 9:32 AM Nataliya Gilmore documented as of this encounter Plan of Treatment Not on file documented as of this encounter Procedures Procedure NamePriorityDate/TimeAssociated DiagnosisCommentsXR ANKLE LT MIN 3V 07/05/2023 3:37 PM EDT documented in this encounter Results * XR ANKLE LT MIN 3V (07/05/2023 3:37 PM EDT)Anatomical RegionLateralityModality OtherSpecimen (Source)Anatomical Location / LateralityCollection Method / VolumeCollection TimeReceived Time07/05/2023 3:37 PM EDT Narrative 07/05/2023 3:39 PM EDT [facility] ?[address] ? [place] [address] ?XRay Report ? Signed ? Patient: LELO YEN ?MR#: [id number] ?? : 1985 ?Acct:[id number] ?? Age/Sex: 38 / F ?ADM Date: 07/05/23 ?? Loc: [facility] ? Attending Dr: Clau Mar D.P.M. ? Ordering Physician: Clau Mar D.P.M. ?? Date of Service: 07/05/23 ?? Procedure(s): XR ankle LT min 3V ?? Accession Number(s): [id number] ? cc: Kika Guaman TUB CHUCKER; Clau Mar D.P.M. ? [facility] ? [address] ? [place] [address] ? Patient Name: ?? LELO YEN ? MRN: [facility]:[id number] ? date: 1985 ?Sex: F ?? Assigned Patient Location: EC ?? Current Patient Location: EC ?? Accession/Order Number: [id number] ?? Exam Date: 07/05/2023 ??11:12 ?Report Date: 07/05/2023 ??15:37 ? At the request of: ?? CLAU ??ROSALIA ? Procedure: ??XR ankle LT min 3V ? PROCEDURE: XR ankle LT min 3V ? HISTORY: LEFT ANKLE PAIN ; lateral ankle pain, rolled ankle 2 weeks ago ? COMPARISON: XR ankle left 06/23/2023 ? FINDINGS: ?? BONES:Stable small ossification distal to the lateral malleolus which appear ?? to ?? be corticated, favoring sequela of remote injury. Unremarkable ankle joint ?? space. ?? SOFT TISSUES:Mild soft tissue swelling. ?? EFFUSION:None visible. ?? OTHER: Negative. ? XR/XR ankle LT min 3V ?? IMPRESSION: ? 1. No convincing acute bone abnormality. ? Electronically authenticated by: ROBERT ??CABRERA ?? Date: 07/05/2023 ??15:37 ? Dictated By: ?Robert Hester M.D. ? Signed By: ?24 1539 ? DD/ 1537 ? TD/TT: ? Sports Nutritionist: Procedure Note Radiology, Radiologist, MD - 07/05/2023 [place] [address] XRay Report Signed Patient: LELO YEN JMR#: [id number] : 1985Acct:[id number] Age/Sex: 38 / FADM Date: 07/05/23 Loc: [facility] Attending Dr: Clau Mar D.P.M. Ordering Physician: Clau Mar D.P.M. Date of Service: 07/05/23 Procedure(s): XR ankle LT min 3V Accession Number(s): [id number] cc: Kika Guaman TUB CHUCKER; Clau Mar D.P.M. [facility] [place] [id number] Patient Name: LELO YEN MRN: [facility]:[id number] date: 1985 Sex: F Assigned Patient Location: Current Patient Location: EC Accession/Order Number: [id number] Exam Date: 07/05/2023 11:12 Report Date: 07/05/2023 15:37 At the request of: CLAU MAR Procedure: XR ankle LT min 3V PROCEDURE: XR ankle LT min 3V HISTORY: LEFT ANKLE PAIN ; lateral ankle pain, rolled ankle 2 weeks ago COMPARISON: XR ankle left 06/23/2023 FINDINGS: BONES:Stable small ossification distal to the lateral malleolus whichappear to be corticated, favoring sequela of remote injury. Unremarkable ankle joint space. SOFT TISSUES:Mild soft tissue swelling. EFFUSION:None visible. OTHER: Negative. XR/XR ankle LT min 3V IMPRESSION: 1. No convincing acute bone abnormality. Electronically authenticated by: ROBERT HESTER Date: 07/05/2023 15:37 Dictated By: Robert Hester M.D. Signed By:07/05/23 1539 DD/ 1537 TD/TT: Sports Nutritionist: Authorizing ProviderResult TypeResult StatusGeneric External Data Provider CLINISYNC IMAGINGFinal Result documented in this encounter Visit Diagnoses Not on filedocumented in this encounter Care Teams Team MemberRelationshipSpecialtyStart DateEnd Date Benji Hinojosa MD [facility] - [facility]2409 Unallocated, [facility]oms ProviderMD [address] [place] [address] PCP - GeneralFamily Vpxsuwet64/15/ Benji Hinojosa MD PCP - GeneralFamily Mdhweuyn47/31/24 Kika Guaman NP Referring PhysicianNurse Practitioner07/30/22 Kika Guaman NP Nurse PractitionerFamily Medicine06/23/23 Jefferson Gordon DO [address] [place] [address] Referring PhysicianNeurology06/18/24documented as of this encounter
--- OUTSIDE RECORDS SUMMARY | 2024-12-24 15:25 | XMS_ITS | Patient Health Record ---
Author Organization [facility] Address [address] [place] [address] Care Team Providers Care Devulcanizer Head Name Role Phone Kika Guaman CNP Primary Care Provider Unavail able Allergies No Known Allergies Reason For Referral No Information Medications Medication SIG (Take, Route, Frequency, Duration) Notes Start Date End Date Status Pregabalin 75 MG 1 capsule Orally twice daily; D uration: 15 days 10/19/2023ctiveMeloxicam 15 MG1 tablet Orally Once a day; Duration: 30 days 07/05/2023UnknownValtrex 500 MG1 tablet Orally Once a dayActiveTopamax 50 MG1 tablet Orally Once a dayActiveSaxenda 18 MG/3MLas directed SubcutaneousActive Lorelei 1.5/30 1.5-30 MG-MCG1 tablet Orally Once a dayActiveImitrex 50 MG1 tablet at least 2 hours between doses as needed Orally Twice a dayActiveDaily Vitamin Active Social History Tobacco Use: Social History Observation Description Date Details (start date - stop date) Never Smoker NA - NA Tobacco Control (Standard) Question Answer Notes Tobacco use: Nonsmoker Problems Problem Type SNOMED Code ICD Code Onset Dates Problem Status W/U Status Risk Notes Problem Common peroneal nerv e lesion (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) Lesion of lateral popliteal nerve, 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) ActiveconfirmedProblemSprain of left ankle (26870818998920247)Sprain of other ligament of left ankle, initial encounter (S93.492A)ActiveconfirmedProblem Arthralgia of the ankle and/or foot (806373556)Left ankle pain (M25.572)Active confirmed Plan Of Treatment Pending Test Test Name Order Date MRI Ankle LT w/o contrast (Hind Foot) MR ankle LT wo con 10/17/2023 Insurance Providers Payer Name Payer Address Payer Phone Subscriber Number Group Number Insured Name Patient Relationship to Insured Coverage Start Date Coverage End Date [employer] [address] [place] [phone] [id number] Lelo Porter Self - patient is the insured Medical (General) History Medical History History ICD Code migraines Hospitalization History Reason Date(Month/Year) thumb surgery 2002 knee arthroscopy left 2018 knee arthroscopy right 2009 knee arthroscopy with meniscectomy [facility] 07/16/2022 cholecystectomy 2014 appendectomy
--- OUTSIDE RECORDS SUMMARY | 2024-12-24 15:25 | XMS_ITS | Encounter Summary ---
Author Organization [facility] Address [address] [place] [address] Care Team Providers Care Buffet Attendant Name Role Phone Kika Guaman TWIST MAKER Unavailable [phone] Benji Hinojosa MD Primary Care Provider [phone] Kika Guaman TWIST MAKER Unavailable [phone] Unallocated, Noms Provider Primary Care Provi migdalia Benji Hinojosa MD Primary Care Provider [phone] Jefferson Gordon DO Unavailable [phone] Encounter Details DateTypeDepartmentCare Team (Latest Contact Info)Xqhspsaqaoe17/02/2024linisync Result Encounter [facility] External Department Unsolicited Kiak Guaman, TWIST MAKER [address] [place] [id number] Social History Tobacco UseTypesPacks/DayYears UsedDateSmoking Tobacco: NeverAlcohol [...] relatives?Once a week2024How often do you attend religious or confucianist services?Never2024Do you belong to any clubs or organizations such as religious groups, unions, fraternal or athletic groups, or school groups?No 2024How often do you attend meetings of the clubs or organizations you belong to?Patient dlqtkegv26/09/2025re you , , , , never , or living with a partner?Pjsllveq41/09/2025UDIT-C AnswerDate RecordedQ1: How often do you have [...] care, and heating?Somewhat hard2024PHQ-2AnswerDate RecordedPatient Health Questionnaire-2 Hqmpj036Fingunnison [facility] [place] of Occupational Health - Occupational Stress QuestionnaireAnswerDate [...] steady place to sleep or slept in [facility] (including now)?No02/22/2023Housing Stability Vital SignAnswerDate RecordedIn the last 12 months, was there a time when you were not able to pay the mortgage or rent on time?Yes2024In the past 12 months, how many times have you moved where you were living?t any time in the past 12 months, were you homeless or living in a nursing home (including now)?No2024 CommentsNoSex and Gender InformationValueDate RecordedSex Assigned at BirthNot on fileLegal YavDkuknn58/15/2023 6:44 PM EDTGender IdentityNot on file Sexual OrientationNot on filedocumented as of this encounter Functional Status * AUDIT-C ScoreAnswerDate of PivsefigqqDfkjzm028/09/2025 9:32 AM Mando, Generic * Q1: How [...] or more drinks on one occasion?AnswerDate of AasqtaqmatFdpwmvXizjj97/09/2025 9:32 AM Mando Generic * Over the past 2 weeks, how often have you been bothered by any of the following problems?QuestionAnswerDate of AssessmentAuthorLittle interest or pleasure in doing thingsSeveral days06/23/2023 10:19 AM Ramonita Delgado, SEBASTIANeeling down, depressed, or hopelessSeveral days06/23/2023 10:19 AM EDT Ramonita Caldwell MAPatient Health Questionnaire-2 Fsmww324 10:19 AM Ramonita Delgado MA * How difficult have these problems made it for you to do your work, take care of things at home, or get along with other people?AnswerDate of Assessment AuthorNot difficult at all06/23/2023 10:19 AM Ramonita Delgado MA documented as of this encounter Plan of Treatment Not on file documented as of this encounter Procedures Procedure NamePriorityDate/TimeAssociated DiagnosisCommentsXR KNEE 3 VIEWS LEFT 06/23/2023 12:56 PM EDT documented in this encounter Results * XR knee 3 views left (06/23/2023 12:56 PM EDT)Anatomical RegionLaterality ModalityLower Extremities, KneeLeftRadiographic ImagingSpecimen (Source) Anatomical Location / LateralityCollection Method / VolumeCollection Time Received Time06/23/2023 12:56 PM EDT Narrative 06/23/2023 12:58 PM EDT [facility] ?[address] ? [place] [address] ?XRay Report ? Signed ? Patient: YOVANA,ROBLES J ?MR#: [id number] ?? : 1985 ?Acct:[id number] ?? Age/Sex: 38 / F ?ADM Date: 05/02/24 ?? Loc: LAB ? Attending Dr: Kika Barraza Aichholz TWIST MAKER ? Ordering Physician: Aichholz,Kika TWIST MAKER ?? Date of Service: 06/23/23 ?? Procedure(s): XR knee LT 3V ?? Accession Number(s): [id number] ? cc: Kika Guaman NP ? [facility] ? [address] ? [place] [address] ? Patient Name: ?? ROBLES YEN ? MRN: [facility]:[id number] ? date: 1985 ?Sex: F ?? Assigned Patient Location: LAB ?? Current Patient Location: LAB ?? Accession/Order Number: [id number] ?? Exam Date: 06/23/2023 ??11:52 ?Report Date: 06/23/2023 ??12:56 ? At the request of: ?? KIKA GUAMAN ? Procedure: ??XR knee LT 3V ? PROCEDURE: XR knee LT 3V ? COMPARISON: None. ? HISTORY: contusion of left knee, initial encounter S80.02XA ? FINDINGS: ?? BONES:No fracture, acute abnormality, or significant arthropathy. ?? SOFT TISSUES:Negative. No visible soft tissue swelling. ?? EFFUSION:None visible. ?? OTHER: Negative. ? XR/XR knee LT 3V ?? IMPRESSION: ? No acute radiographic abnormality ? Electronically authenticated by: KEKE ??EB ?? Date: 06/23/2023 ??12:56 ? Dictated By: ?Keke Parson M.D. ? Signed By: ?06/23/23 1258 ? DD/ 1256 ? TD/TT: ? Forestry Laborer: Procedure Note Radiology, Radiologist, MD - 06/23/[address] [address] XRay Report Signed Patient: ROBLES YEN JMR#: [id number] : 1985Acct:[id number] Age/Sex: 38 / FADM Date: 06/23/23 Loc: LAB Attending Dr: Kika Guaman TWIST MAKER Ordering Physician: Kika Guaman NP Date of Service: 06/23/23 Procedure(s): XR knee LT 3V Accession Number(s): [id number] cc: Kika Guaman NP The [address] [address] Patient Name: ROBLES YEN MRN: [facility]:[id number] date: 1985 Sex: F Assigned Patient Location: LAB Current Patient Location: LAB Accession/Order Number: [id number] Exam Date: 06/23/2023 11:52 Report Date: 06/23/2023 12:56 At the request of: KIKA GUAMAN Procedure: XR knee LT 3V PROCEDURE: XR knee LT 3V COMPARISON: None. HISTORY: contusion of left knee, initial encounter S80.02XA FINDINGS: BONES:No fracture, acute abnormality, or significant arthropathy. SOFT TISSUES:Negative. No visible soft tissue swelling. EFFUSION:None visible. OTHER: Negative. XR/XR knee LT 3V IMPRESSION: No acute radiographic abnormality Electronically authenticated by: KEKE PARSON Date: 06/23/2023 12:56 Dictated By: Keke Parson M.D. Signed By:06/23/23 1258 DD/ 1256 TD/TT: Forestry Laborer: Authorizing ProviderResult TypeResult StatusLisa Deniz NPIMG XR PROCEDURES Final Result documented in this encounter Visit Diagnoses Not on filedocumented in this encounter Care Teams Team MemberRelationshipSpecialtyStart DateEnd Date Benji Hinojosa MD PCP - GeneralFamily Medicine06/22/2409 Unallocated, Noms MD [place] [address] [place] [address] PCP - GeneralFamily Octfixqg97/15/ Benji Hinojosa MD PCP - GeneralFamily Imvsbzja43/31/24 Kika Guaman NP Referring PhysicianNurse Practitioner07/30/22 Kika Guaman NP Nurse PractitionerFamily Medicine06/23/23 Jefferson Gordon DO [address] [place] [address] Referring PhysicianNeurology06/18/24documented as of this encounter
--- OUTSIDE RECORDS SUMMARY | 2024-12-24 15:25 | XMS_ITS | Encounter Summary ---
Author Organization [facility] Address [address] [place] [address] Care Team Providers Care Filtering Machine Tender Helper Name Role Phone Kika Guaman PROJECT MANAGEMENT SPECIALIST Unavailable [phone] Benji Hinojosa MD Primary Care Provider [phone] Benji Hinojosa MD Primary Care Provider [phone] Kiak Guaman PROJECT MANAGEMENT SPECIALIST Unavailable [phone] Unallocated, Noms Provider Primary Care Provi migdalia Benji Hinojosa MD Primary Care Provider [phone] Jefferson Gordon DO Unavailable [phone] Encounter Details DateTypeDepartmentCare Team (Latest Contact Info)Bmukezrubar65/21/2024Clinisync Result Encounter [facility] External Department Unsolicited Kika Guaman NP [address] [place] [address] Social History Tobacco UseTypesPacks/DayYears UsedDateSmoking Tobacco: NeverAlcohol [...] relatives?Once a week2024How often do you attend confucianism or mu-ism services?Never2024Do you belong to any clubs or organizations such as confucianism groups, unions, fraternal or athletic groups, or school groups?No 2024How often do you attend meetings of the clubs or organizations you belong to?Patient /09/2025re you , , , , never , or living with a partner?Pkilhszw06/09/2025UDIT-C AnswerDate RecordedQ1: How often do you have [...] care, and heating?Somewhat hard2024PHQ-2AnswerDate RecordedPatient Health Questionnaire-2 Wxxpf878Finbrigham city community hospital [place] of Occupational Health - Occupational Stress QuestionnaireAnswerDate [...] steady place to sleep or slept in [place] (including now)?No02/22/2023Housing Stability Vital SignAnswerDate RecordedIn the last 12 months, was there a time when you were not able to pay the mortgage or rent on time?Yes2024In the past 12 months, how many times have you moved where you were living?t any time in the past 12 months, were you homeless or living in a longterm (including now)?No2024 CommentsNoSex and Gender InformationValueDate RecordedSex Assigned at BirthNot on fileLegal SteGmnllf72/15/2023 6:44 PM EDTGender IdentityNot on file Sexual OrientationNot on filedocumented as of this encounter Functional Status * AUDIT-C ScoreAnswerDate of UnqhpkqqrvCvnsng868/09/2025 9:32 AM Nataliya Gilmore * Q1: How [...] or more drinks on one occasion?AnswerDate of YfktogkwmtDesxacWfvfr14/09/2025 9:32 AM Mando Generic * Over the past 2 weeks, how often have you been bothered by any of the following problems?QuestionAnswerDate of AssessmentAuthorLittle interest or pleasure in doing thingsSeveral days06/23/2023 10:19 AM Ramonita Delgado, SEBASTIANeeling down, depressed, or hopelessSeveral days06/23/2023 10:19 AM Ramonita Oquendo MAPatient Health Questionnaire-2 Zmeye383 10:19 AM Ramonita Delgado MA * How difficult have these problems made it for you to do your work, take care of things at home, or get along with other people?AnswerDate of Assessment AuthorNot difficult at all06/23/2023 10:19 AM Ramonita Delgado MA documented as of this encounter Plan of Treatment Not on file documented as of this encounter Procedures Procedure NamePriorityDate/TimeAssociated DiagnosisCommentsBI US BREAST LIMITED RIGHT04/13/2023 4:07 PM EST documented in this encounter Results * Right breast US limited (04/13/2023 4:07 PM EST)Anatomical RegionLaterality ModalityBreastRightUltrasoundSpecimen (Source)Anatomical Location / Laterality Collection Method / VolumeCollection TimeReceived Time04/13/2023 4:07 PM EST Narrative 04/13/2023 4:08 PM EST [facility] ?[address] ? [place] [address] ? Ultrasound Report ? Signed ? Patient: YOVANA,ROBLES J ?MR#: [id number] ?? : 1985 ?Acct:[id number] ?? Age/Sex: 38 / F ?ADM Date: 04/13/24 ?? Loc: MAMMO ? Attending Dr: Kika Guaman PROJECT MANAGEMENT SPECIALIST ? Ordering Physician: Kika Guaman NP ?? Date of Service: 04/13/23 ?? Procedure(s): US breast RT limited ?? Accession Number(s): [id number] ? cc: Kika Guaman NP ? Patient Name: ? ROBLES YEN ? MR#: [id number] ? : 1985 ? Exam Date: 04/13/2023 [...] at age 72. ? LOCATION: ? [facility] ? BREAST COMPOSITION: ? Scattered areas fibroglandular [...] ? Signed By: ?04/13/23 1608 ? DD/ ? TD/TT: ? Tool Maker Apprentice: Procedure Note Radiology, Radiologist, MD - 04/13/2023 [place] [address] Ultrasound Report Signed Patient: ROBLES YEN JMR#: [id number] : 1985Acct:[id number] Age/Sex: 38 / FADM Date: 04/13/23 Loc: MAMMO Attending Dr: Kika Guaman NP Ordering Physician: Kika Guaman NP Date of Service: 04/13/23 Procedure(s): US breast RT limited Accession Number(s): [id number] cc: Kika Guaman NP Patient Name: ROBLES YEN MR#: [id number] : 1985 Exam Date: 04/13/2023 Ordering Doctor: [...] with prostate cancer at age72. LOCATION: [facility] BREAST COMPOSITION: Scattered areas fibroglandular density. FINDINGS: [...] M.D. Signed By:04/13/23 1608 DD/ 1607 TD/TT: Tool Maker Apprentice: Authorizing ProviderResult TypeResult StatusLisa Deniz NPIMG US PROCEDURES Final Result documented in this encounter Visit Diagnoses Not on filedocumented in this encounter Care Teams Team MemberRelationshipSpecialtyStart DateEnd Date Benji Hinojosa MD PCP - GeneralCardiology Benji Hinojosa MD PCP - GeneralFamily Medicine06/22/2409 Unallocated, Noms ProviderMD [address] [place] [address] PCP - GeneralFamily Ixwmthck96/15/ Benji Hinojosa MD PCP - GeneralFamily Ejckrlrf42/31/24 Kika Guaman NP Referring PhysicianNurse Practitioner07/30/22 Kika Guaman NP Nurse PractitionerFamily Medicine06/23/23 Jefferson Gordon DO [address] [place] [address] Referring PhysicianNeurology06/18/24documented as of this encounter
--- OUTSIDE RECORDS SUMMARY | 2024-12-24 15:25 | XMS_ITS | Encounter Summary ---
Author Organization [facility] Address [address] [place] [address] Care Team Providers Care Commercial Cleaner Name Role Phone Kika Guaman REINSURANCE ANALYST Unavailable [phone] Benji Hinojosa MD Primary Care Provider [phone] Kika Guaman REINSURANCE ANALYST Unavailable [phone] Unallocated, Noms Provider Primary Care Provi migdalia Benji Hinojosa MD Primary Care Provider [phone] Jefferson Gordon DO Unavailable [phone] Encounter Details DateTypeDepartmentCare Team (Latest Contact Info)Klbyqkdjgou45/02/2024linisync Result Encounter [facility] External Department Unsolicited Kika Guaman, REINSURANCE ANALYST [address] [place] [id number] Social History Tobacco UseTypesPacks/DayYears UsedDateSmoking Tobacco: NeverAlcohol [...] relatives?Once a week2024How often do you attend sabianism or baptism services?Never2024Do you belong to any clubs or organizations such as sabianism groups, unions, fraternal or athletic groups, or school groups?No 2024How often do you attend meetings of the clubs or organizations you belong to?Patient vnqcvnov90/09/2025re you , , , , never , or living with a partner?Cwqlpdfj39/09/2025UDIT-C AnswerDate RecordedQ1: How often do you have [...] care, and heating?Somewhat hard2024PHQ-2AnswerDate RecordedPatient Health Questionnaire-2 Zbtdh601Finbeaver valley hospital [place] of Occupational Health - Occupational Stress QuestionnaireAnswerDate [...] steady place to sleep or slept in [facility] (including now)?No02/22/2023Housing Stability Vital SignAnswerDate RecordedIn the last 12 months, was there a time when you were not able to pay the mortgage or rent on time?Yes2024In the past 12 months, how many times have you moved where you were living?t any time in the past 12 months, were you homeless or living in a skilled nursing (including now)?No2024 CommentsNoSex and Gender InformationValueDate RecordedSex Assigned at BirthNot on fileLegal FrrXxuvjw15/15/2023 6:44 PM EDTGender IdentityNot on file Sexual OrientationNot on filedocumented as of this encounter Functional Status * AUDIT-C ScoreAnswerDate of ZjlckbbjngIboxve189/09/2025 9:32 AM Mando, Generic * Q1: How often do you have a drink containing alcohol?AnswerDate of Assessment AuthorMonthly or less2024 9:32 AM Mando Generic * Q2: How many drinks containing alcohol do you have on a typical day when you are drinking?AnswerDate of AssessmentAuthor1 or 9:32 AM MAYTE Frank Generic * Q3: How often do you have six or more drinks on one occasion?AnswerDate of QorbzuqcnxGmfucdAsyrb83/09/2025 9:32 AM Mando Generic * Over the past 2 weeks, how often have you been bothered by any of the following problems?QuestionAnswerDate of AssessmentAuthorLittle interest or pleasure in doing thingsSeveral days06/23/2023 10:19 AM Ramonita Delgado, SEBASTIANeeling down, depressed, or hopelessSeveral days06/23/2023 10:19 AM EDT Ramonita Caldwell MAPatient Health Questionnaire-2 Lsdni630 10:19 AM Ramonita Delgado MA * How [...] Procedure NamePriorityDate/TimeAssociated DiagnosisCommentsXR ANKLE LT MIN 3V 06/23/2023 1:05 PM EDT documented in this encounter Results * XR ANKLE LT MIN 3V (06/23/2023 1:05 PM EDT)Anatomical RegionLateralityModality OtherSpecimen (Source)Anatomical Location / LateralityCollection Method / VolumeCollection TimeReceived Time06/23/2023 1:05 PM EDT Narrative 06/23/2023 1:08 PM EDT [facility] ?[address] ? [place] [address] ?XRay Report ? Signed ? Patient: YOVANA,ROBLES Barraza ?MR#: [id number] ?? : 1985 ?Acct:[id number] ?? Age/Sex: 38 / F ?ADM Date: // ?? Loc: LAB ? Attending Dr: Kika Guaman REINSURANCE ANALYST ? Ordering Physician: Kika Guaman NP ?? Date of Service: 06/23/23 ?? Procedure(s): XR ankle LT min 3V ?? Accession Number(s): [id number] ? cc: Kika Guaman NP ? [facility] ? [address] ? [place] [address] ? Patient Name: ?? ROBLES YEN ? MRN: [facility]:[id number] ? date: 1985 ?Sex: F ?? Assigned Patient Location: LAB ?? Current Patient Location: LAB ?? Accession/Order Number: [id number] ?? Exam Date: 06/23/2023 ??11:52 ?Report Date: 06/23/2023 ??13:05 ? At the request of: ?? KIKA GUAMAN ? Procedure: ??XR ankle LT min 3V ? PROCEDURE: XR ankle LT min 3V ? COMPARISON: None. ? HISTORY: left ankle swelling m25.472 ? FINDINGS: ?? BONES:Bone fragment identified along the inferior lateral malleolus measuring ?? 7.7 mm, this is age-indeterminate. No dislocation. ?? SOFT TISSUES:Negative. No visible soft tissue swelling. ?? EFFUSION:None visible. ?? OTHER: Negative. ? XR/XR ankle LT min 3V ?? IMPRESSION: ? Bone fragment along the inferior lateral malleolus, age-indeterminate injury ? Electronically authenticated by: KEKE ??EB ?? Date: 06/23/2023 ??13:05 ? Dictated By: ?Keke Parson M.D. ? Signed By: ?06/23/23 1308 ? DD/ 1305 ? TD/TT: ? Overhauler: Procedure Note Radiology, Radiologist, - 06/23/2023 [place] [address] XRay Report Signed Patient: ROBLES YEN R#: [id number] : 1985Acct:[id number] Age/Sex: 38 / FADM Date: 06/23/23 Loc: LAB Attending Dr: Kika Guaman NP Ordering Physician: Kika Guaman NP Date of Service: 06/23/23 Procedure(s): XR ankle LT min 3V Accession Number(s): [id number] cc: Kika Guaman NP [address] [address] Patient Name: ROBLES YEN MRN: [facility]:[id number] date: 1985 Sex: F Assigned Patient Location: LAB Current Patient Location: LAB Accession/Order Number: [id number] Exam Date: 06/23/2023 11:52 Report Date: 06/23/2023 13:05 At the request of: KIKA GUAMAN Procedure: XR ankle LT min 3V PROCEDURE: XR ankle LT min 3V COMPARISON: None. HISTORY: left ankle swelling m25.472 FINDINGS: BONES:Bone fragment identified along the inferior lateral malleolusmeasuring 7.7 mm, this is age-indeterminate. No dislocation. SOFT TISSUES:Negative. No visible soft tissue swelling. EFFUSION:None visible. OTHER: Negative. XR/XR ankle LT min 3V IMPRESSION: Bone fragment along the inferior lateral malleolus, age-indeterminateinjury Electronically authenticated by: KEKE PARSON Date: 06/23/2023 13:05 Dictated By: Keke Parson M.D. Signed By:06/23/23 1308 DD/ 1305 TD/TT: Overhauler: Authorizing ProviderResult TypeResult StatusLisa Guaman NPCLINISYNC IMAGING Final Result documented in this encounter Visit Diagnoses Not on filedocumented in this encounter Care Teams Team MemberRelationshipSpecialtyStart DateEnd Date Benji Hinojosa MD PCP - GeneralFamily Medicine06/22/2409 Unallocated, [place] MD [place] [address] [place] [address] PCP - GeneralFamily Muoeerfs06/15/ Benji Hinojosa MD PCP - GeneralFamily Hkkmuvsh59/31/24 Kika Guaman NP Referring PhysicianNurse Practitioner07/30/22 Kika Guaman NP Nurse PractitionerFamily Medicine06/23/23 Jefferson Gordon DO [address] [facility] [address] [place] [address] Referring PhysicianNeurology06/18/24documented as of this encounter
--- OUTSIDE RECORDS SUMMARY | 2024-12-24 15:28 | XMS_ITS | CCD ---
Author Organization [facility] Care Team Providers Care Party Plan Sales Agent Name Role Phone Unavailable Primary Care Provider Unavailbud e Kika Guaman Primary Care Provider Kika Guaman Primary Care Provider [phone] POOL, AMAYA E Referring Unavailable DENIZ KIKA J. Primary Care Unavailable POOL, AMAYA E Referring Unavailable CONCEPCIÓNHHOLYoni KIKA J. Primary Care Unavailable POOL, AMAYA E Referring Unavailable CONCEPCIÓNHFELIPE KIKA J. Primary Care Unavailable POOL, AMAYA E Referring Unavailable DENIZ KIKA J. Primary Care Unavailable POOL, AMAYA E Referring Unavailable DENIZ KIKA J. Primary Care Unavailable Fatimah Guamana Larry Primary Care Provider Katiuska Ho Unavailable Barbara Zhu Unavailable AICHHOLZ, RN WOUND CARE KIKA Primary Care Unavailable CAROLINA, DR JOSSY Tran Admitting Unavailbud FIGUEROA, DR JOSSY Tran Attending Unavailbud e ALLYSSA ., KAROL Consulting Unavailable AICHHOLZ, RN WOUND CARE KIKA Primary Care Unavailable DR VINCENZO FISCHER Admitting Unavailable LAWRENCE, DR VINCENZO Rahman Attending Unavailable DR VINCENZO FISCHER Consulting Unavailable AICHHOLZ, RN WOUND CARE KIKA Admitting Unavailable AICHHOLZ, RN WOUND CARE KIKA Attending Unavailable AICHHOLZ, RN WOUND CARE KIKA Primary Care Unavailable AICHHOLZ, RN WOUND CARE KIKA Consulting Unavailable RONALD JOHN Consulting Unavailable AICHHOLZ, RN WOUND CARE KIKA Admitting Unavailable AICHHOLZ, RN WOUND CARE KIKA Attending Unavailable AICHHOLZ, RN WOUND CARE KIKA Primary Care Unavailable AICHHOLZ, RN WOUND CARE KIKA Consulting Unavailable AICHHOLZ, RN WOUND CARE KIKA Admitting Unavailable AICHHOLZ, RN WOUND CARE KIKA Attending Unavailable AICHHOLZ, RN WOUND CARE KIKA Primary Care Unavailable AICHHOLZ, RN WOUND CARE KIKA Consulting Unavailable AICHHOLZ, RN WOUND CARE KIKA Admitting Unavailable AICHHOLZ, RN WOUND CARE KIKA Attending Unavailable AICHHOLZ, RN WOUND CARE KIKA Primary Care Unavailable AICHHOLZ, RN WOUND CARE KIKA Consulting Unavailable AICHHOLZ, RN WOUND CARE KIKA Primary Care Unavailable LAWRENCE, DR VINCENZO Rahman Admitting Unavailable LAWRENCE, DR VINCENZO Rahman Attending Unavailable LAWRENCE, DR VINCENZO Rahman Consulting Unavailable CABRERA, DR DEEJAY Rahman Consulting Unavailable MITCHELL ., RAJINDER Consulting Unavailable Aichholz SPECIAL EDUCATION SUPERINTENDENT, Kika Unavailable Ashish ARMSTRONG, Benji Primary Care Provider Kika Guaman Primary Care Provider LOUIE Zuh Attending Provider Aicbandar SPECIAL EDUCATION SUPERINTENDENT, Kika Unavailable Ashish ARMSTRONG, Benji Primary Care Provider Aicfelipe SPECIAL EDUCATION SUPERINTENDENT, Kika Unavailable Unallocated , Noms Provider Primary Care Provi migdalia Ashish ARMSTRONG, Benji Primary Care Provider Ashish ARMSTRONG, Benji Primary Care Provider [phone] KIKA GUAMAN J Primary Care Unavailable MIKHAIL GASCA Attending Unavailable Briana Gordon DO Unavailable Kika Guaman Primary Care Provider Briana Gordon DO Attending Provider Briana Gordon Attending Unavailab le Kika Guaman Primary Care Unavailable Briana Gordon Admitting Unavailab le Kika Guaman J Primary Care Unavailable Briana Gordon Admitting Unavailab Briana Reyna Attending Unavailab Briana Reyna DO Unavailable AICBANDAR, KIKA Attending Unavailable AICBUNNYZ, KIKA Attending Unavailable BRIANA GORDON Attending Unavailable AICHHOLZ, KIKA Referring Unavailable AICAna LauraHOLYoni, KIKA Attending Unavailable KIKA GUAMAN Attending Unavailable KIKA GUAMAN Attending Unavailable KIKA GUAMAN Attending Unavailable Deniz SPECIAL EDUCATION SUPERINTENDENT-CKika Primary Care Provider [phone] Neptali RICKETTSP-Kady Francis Attending Provider Deniz SPECIAL EDUCATION SUPERINTENDENT, Kika Unavailable Benji Hinojosa MD Primary Care Provider [phone] Deniz SPECIAL EDUCATION SUPERINTENDENT, Kika Unavailable Unallocated Swathi ARMSTRONG Provider Primary Care Provi migdalia Benji Hinojosa MD Primary Care Provider Briana Gordon DO Unavailable Benji Hinojosa MD Primary Care Provider Medications Current Medications MedicationDrug Class(es)DatesSig (Normalized)Sig (Original)acetaminophen 325 mg oral tablet (13 sources)Start: 12-21-2018 End: 85-00-6357njyk 650 mg by mouth every four hours as needed for fever, then take 4000 mg by mouth every twenty-four hours as needed for mg, Oral, EVERY 4 HOURS PRN, Fever, Fever >100.5 F (38 C) or pain 1-10, Starting Tue12/22/18at 0325 Maximum dose of acetaminophen is 4000 mg from all sources in 24 hours. Postpartumtake 1 tablet by mouth every four hours as neededacetaminophen (Tylenol) 325 MG tablet Take 325 mg by mouth every 4 (four) hours if needed Activetake 2 tablets by mouth every six hours as needed for painacetaminophen (TYLENOL) 325 MG tablet Take 650 mg by mouth every 6 hours as needed for Pain 0 ActiveacetaZOLAMIDE 125 mg oral tablet (5 sources)Carbonic Anhydrase InhibitorStart: 06-58-6376jxke 1 tablet by mouth twice dailyAcetazolamide 125 mg tablet Active 125 MG PO Twice daily 60 November 26, 2024 3:41pm Complies with drug therapyStart: 07-31-2024 End: 49-33-2215hzfu 1 tablet by mouth in the morningacetaZOLAMIDE (Diamox) 250 MG tablet Take 250 mg by mouth in the morning and 250 mg before bedtime. 07/31/2024 Activeamoxicillin 875 mg / clavulanate 125 mg oral tablet (4 sources)Penicillin-class AntibacterialStart: 04-10-2024 End: 73-83-6316eugq 1 tablet by mouth in the morningamoxicillin-clavulanate (Augmentin) 875-125 MG tablet Indications: Acute non-recurrent maxillary sin usitis Take 1 tablet (875 mg) by mouth in the morning and 1 tablet (875 mg) before bedtime. Do all this for 10 days. Take with food. 20 tablet 04/10/2024 04/20/2024 ActiveAtogepant (2 sources)Start: 20-16-2176vajh 1 tablet by mouth once dailyAtogepant (Qulipta) 60 mg tablet Active 60 MG PO Daily July 27, 2024 12:00am Complies with drug the rapyStart: 73-66-2509cffx 1 tablet by mouth once dailyAtogepant (Qulipta) 60 mg tablet Active 60 MG PO Daily July 27, 2024 12:00amAtogepant (Qulipta) 60 MG tablet (20 sources)Start: 01-66-7090ynda 1 tablet by mouth once dailyAtogepant (Qulipta) 60 MG tablet Indications: Migraine Take 60 mg by mouth Daily 90 tablet 1 07/05/2024 ActiveStart: 07-05-2024 End: 95-62-6025wmlc 1 tablet by mouth once dailyAtogepant (Qulipta) 60 MG tablet Indications: Migraine Take 60 mg by mouth Daily 90 tablet 1 07/05/2024 10/03/2024 ActiveStart: 04-10-2024 End: 59-86-0240qlng 1 tablet by mouth once dailyAtogepant (Qulipta) 60 MG tablet Indications: Migraine Take 60 mg by mouth Daily 30 tablet 3 04/10/2024 07/05/2024 Discontinued (Reorder)Start: 19-89-0894jpeg 1 tablet by mouth once dailyAtogepant (Qulipta) 60 MG tablet Indications: Migraine Take 60 mg by mouth Daily 30 tablet 3 04/10/2024 ActiveStart: 04-10-2024 End: 45-67-4573bsql 1 tablet by mouth once dailyAtogepant (Qulipta) 60 MG tablet Indications: Migraine Take 60 mg by mouth Daily 30 tablet 3 04/10/2024 05/10/2024 Active End: 73-07-6799ylqs 1 tablet by mouth once dailyAtogepant (Qulipta) 60 MG tablet Indications: Migraine Take 60 mg by mouth Daily 04/10/2024 Discontinued (Reorder)take 1 tablet by mouth once dailyAtogepant (Qulipta) 60 MG tablet Indications: Migraine Take 60 mg by mouth Daily Activebenzocaine 200 mg/ml / menthol 5 mg/ml topical spray (1 source)Standardized Chemical AllergenStart: 67-57-6805ryuti 1 dose topically twice dailyTopical, 2 TIMES DAILY, First dose on Tue12/22/18 at 0900 Apply to perineal area. Patient is capable and may self administer at bedside. benzonatate 200 mg oral capsule (1 source)Non-narcotic AntitussiveStart: 01-21-2024 End: 48-62-6725pvkd 1 capsule by mouth every eight hours for coughbenzonatate (Tessalon) 200 MG capsule Indications: Acute cough Take 1 capsule (200 mg) by mouth every 8 (eight) hours if needed for cough for up to 7 days Take with a full glass of water. Do not crush or chew. 21 capsule 01/21/2024 01/28/2024 Activebrompheniramine maleate 0.4 mg/ml / dextromethorphan hydrobromide 2 mg/ml / pseudoephedrine hydrochloride 6 mg/ml oral solution (1 source)alpha-Adrenergic Agonist, Uncompetitive U-gbkgis-T-aspartate Receptor Antagonist, Sigma-1 AgonistStart: 30-80-2327dzwc 10 mL by mouth every six hours Ewnhynuyl-Dxtsdoto-AA 30-2-10 MG/5ML 10 mL Orally every 6 hours for 5 days May, Activecephalexin 500 mg oral capsule (1 source)Cephalosporin AntibacterialStart: 05-23-2024 End: 06-89-2222jhly 1 capsule by mouth in the morningcephalexin (Keflex) 500 MG capsule Indications: Urinary tract infection symptoms Take 1 capsule (500 mg) by mouth in the morning and 1 capsule (500 mg) before bedtime. Do all this for 7 days. 14 capsule 05/23/2024 05/30/2024 Activedocusate sodium 100 mg oral capsule (1 source)Start: 61-27-0985nayz 100 mg by mouth twice daily as needed for txqkgwyiufwg601 mg, Oral, 2 TIMES DAILY PRN, Constipation, Starting 12/22/18 at 0325 Do not crush or break. PostpartumNorethindrone-E.Estradiol-Iron (6 sources)EstrogenStart: 79-74-7903vwoc 1 tablet by mouth once daily Norethindrone-E.Estradiol-Iron (Lorelei Fe 1.5/30 (28)) 1.5 mg-30 mcg (21)/75 mg (7) tablet Active 1 TAB PO Daily April 07, 2023 1:00am Complies with drug therapyStart: 31-47-4536ynwj 1 tablet by mouth once daily Norethindrone-E.Estradiol-Iron (Lorelei Fe 1.5/30 (28)) 1.5 mg-30 mcg (21)/75 mg (7) tablet Active 1 TAB PO Daily April 07, 2023 1:00amStart: 61-68-8259oqfj 1 tablet by mouth once dailyNorethindrone-E.Estradiol-Iron (Lorelei Fe 1.5/30 (28)) 1.5 mg-30 mcg (21)/75 mg (7) tablet Active 1 TAB PO Daily April 07, 2023 12:00amethinyl estradiol 0.03 mg / norethindrone acetate 1.5 mg oral tablet (20 sources)EstrogenStart: 03-20-2024 End: 05-03-9699exij 1 tablet by mouth once dailynorethindrone ac-eth estradio (Lorelei 1.5/30) 1.5-30 MG-MCG tablet tablet Indications: Dysmenorrhea Take 1 tablet by mouth Daily 84 tablet 03/20/2024 10/08/2024 Discontinued (Therapy completed)Start: 07-13-2023 End: 32-17-4589gsxh 1 tablet by mouth once dailynorethindrone ac-eth estradio (Lorelei 1.5/30) 1.5-30 MG-MCG tablet tablet Indications: Dysmenorrhea Take 1 tablet by mouth Daily 84 tablet 1 11/09/2023 ActiveStart: 25-23-9477lziy 1 tablet by mouth in the morningnorethindrone ac-eth estradio (Lorelei 1.5/30) 1.5- 30 MG-MCG tablet tablet Take 1 tablet by mouth in the morning. 0 12/26/2022 Activeethinyl estradiol 0.035 mg / norgestimate 0.25 mg oral tablet (3 sources)Progestin, EstrogenStart: 40-26-7819ffzu 1 tablet by mouth once daily norgestimate-ethinyl estradiol (ORTHO-CYCLEN, 28,) 0.25-35 MG-MCG per tablet Indications: care following vaginal delivery Take 1 tablet by mouth daily 3 packet 3 02/08/2019 ActiveFLUoxetine 20 mg oral capsule (19 sources)Serotonin Reuptake InhibitorStart: 05-09-2024 End: 69-98-6577khpc 1 capsule by mouth once dailyFluoxetine (Prozac) 20 mg capsule Active 20 MG PO Daily July 27, 2024 12:00am Complies with drug therapy Start: 09-28-2023 End: 09-93-3662fuba 1 capsule by mouth once dailyFLUoxetine (PROzac) 20 MG capsule Indications: Anxiety and depression (CMS/HCC) Take 1 capsule (20 mg) by mouth Daily 30 capsule 1 09/28/2023 11/09/2023 Discontinuedfluticasone propionate 0.05 mg/actuat metered dose nasal spray (3 sources)CorticosteroidStart: 16-90-5983kshi 1 spray(s) nasal route once daily Flonase Allergy Relief 50 MCG/ACT 1 spray in each nostril Nasally Once a day for 14 day(s) May, ActiveStart: 50-57-6869zvqr 2 spray(s) nasal route once dailyFLONASE 50 mcg 2 sprays nasally qd Nov, Not-TakingStart: 12-10-2020 take 2 spray(s) nasal route once dailyFLONASE 50 mcg 2 sprays nasally qd Nov, ActivehydrOXYzine pamoate 25 mg oral capsule (20 sources)AntihistamineStart: 75-61-5712qgxo 1 capsule by mouth once daily Hydroxyzine Pamoate (Vistaril) 25 mg capsule Active 25 MG PO Daily July 27, 2024 12:00am Complies with drug therapyStart: 29-84-9023qbdsAZZsymf pamoate (Vistaril) 25 MG capsule 11/07/2023 Activeibuprofen 800 mg oral tablet (1 source)Nonsteroidal Anti-inflammatory DrugStart: 90-66-8811bhgy 800 mg by mouth every eight mg, Oral, EVERY 8 HOURS, First dose on Tue12/22/18 at 0345 Do not crush or break. Postpartumlabetalol hydrochloride 100 mg oral tablet (3 sources)beta-Adrenergic BlockerStart: 06-60-6284ppqh 100 mg by mouth twice xwybs721 mg, Oral, 2 TIMES DAILY, First dose on Ila 12/21/18 at 2100lanolin 0.5 mg/mg topical ointment (1 source)Start: 30-96-0832Ugjfkyh, PRN, Dry Skin, nipple discomfort, Starting Tue12/22/18 at 0325, Postpartum3 ml liraglutide 6 mg/ml pen injector (20 sources)GLP-1 Receptor AgonistStart: 12-08-2023 End: 22-43-5019Xsdrarixpuq -Weight Management (Saxenda) 18 MG/3ML solution pen- injector Indications: Osteoarthritis of knee, unspecified , Body mass index (BMI) 36.0-36.9, adult Start with 0.6mg daily for 7 days, every 7 days increase the dose by 0.6mg to max dose of 3mg dailyStart with 0.6mg daily for 7 days, kim ry 7 days increase the dose by 0.6mg to max dose of 3mg daily 15 mL 3 12/08/2023 04/10/2024 Discontinued (Therapy completed)Start: 09-28-2023 End: 23-74-6422Gxjobgwojmy -Weight Management (Saxenda) 18 MG/3ML solution pen- injector Indications: Osteoarthritis of knee, unspecified , Body mass index (BMI) 36.0-36.9, adult Start with 0.6mg daily for 7 days, every 7 days increase the dose by 0.6mg to max dose of 3mg daily 15 mL 3 09/28/2023 11/10/2023 Discont inued (Reorder)Start: 04-07-2023 End: 75-91-9711Rgsduxelffm (Weight Loss) (Saxenda) 3 mg/0.5 mL (18 mg/3 mL) pen injector Discontinued 3 MG SUBCUT Once a week April 07, 2023 1:00am November 26, 2024 3:16pmStart: 62-54-4589Gfmdjsvyics (Weight Loss) (Saxenda) 3 mg/0.5 mL (18 mg/3 mL) pen injector Active MG SUBCUT 2023 1:00ammeloxicam 15 mg oral tablet (5 sources)Nonsteroidal Anti-inflammatory Drugtake 1 tablet by mouth once daily meloxicam (Mobic) 15 MG tablet Take 15 mg by mouth Daily ActiveMultiple Vitamin (Daily-Vitamin) tablet (7 sources)take 1 tablet by mouth in the morningMultiple Vitamin (Daily-Vitamin) tablet Take 1 tablet by mouth in the morning. Activetake 1 tablet by mouth in the morningMultiple Vitamin (Daily-Vitamin) tablet Take 1 tablet by mouth in the morning. 0 ActiveMultiple Vitamins-Minerals (Multi For Her) capsule (1 source)take 1 tablet by mouth in the morningMultiple Vitamins-Minerals (Multi For Her) capsule Take 1 tablet by mouth in the morning. 0 ActiveMultivitamin (Daily Multi-Vitamin) tablet (2 sources)Start: 42-67-9427kbid 1 tablet by mouth once dailyMultivitamin (Daily Multi-Vitamin) tablet Active 1 TAB PO Daily July 27, 2024 12:00am Complies with drug therapyStart: 56-64-4656axev 1 tablet by mouth once dailyMultivitamin (Daily Multi-Vitamin) tablet Active 1 TAB PO Daily July 27, 2024 12:00am oxytocin (PITOCIN) 30 units in 500 mL infusion (1 source)Start: 09-33-3249cvpxmjii (PITOCIN) 30 units in 500 mL infusion Pneumatic Walking Boot (1 source)Start: 63-40-0608Eyzucihyn Walking Boot Active 0 .Route 1 June 16, 2023 12:00am As directedPneumatic Walking Boot unit (2 sources)Start: 75-45-4670Oecayrjhm Walking Boot unit Active 0 .Route 1 June 16, 2023 12:00am As directedPrenatal MV & Min w/FA-DHA ( Gummies) 0.18-25 MG chewable tablet (20 sources)Start: 69-44-9928Exnwkvoz MV & Min w/FA-DHA ( Gummies) 0.18- 25 MG chewable tablet 11/07/2023 ActiveStart: 97-50-7135Egtuzsfh MV & Min w/FA- DHA ( Gummies) 0.18-25 MG chewable tablet as directed Orally 11/07/2023 ActivePrenatal MV-Min-Fe Fum-FA-DHA ( 1 PO) (13 sources) MV-Min-Fe Fum-FA-DHA ( 1 PO) Take by mouth daily 0 ActiveSemaglutide (Weight Loss) (1 source)Start: 01-15-0762Pwzqwabvyyv (Weight Loss) (Wegovy) 2.4 mg/0.75 mL pen injector Active MG SUBCUT November 26, 2024 12:00am Complies with drug therapy Semaglutide-Weight Management (Wegovy) 0.25 MG/0.5ML solution auto-injector (4 sources)Start: 2024 End: 99-31-2614Bgolwyzdtyc-Weight Management (Wegovy) 0.25 MG/0.5ML solution auto-injector Indications: Morbid (severe) obesity due to excess calories (CMS/HCC) Inject 0.25 mg under the skin every 7 (seven) days for 28 days 2 mL 2024 03/29/2024 ActiveSemaglutide-Weight Management (Wegovy) 0.5 MG/0.5ML solution auto-injector (5 sources)Start: 04-10-2024 End: 04-56-4796Eqksedzogjn-Weight Management (Wegovy) 0.5 MG/0.5ML solution auto-injector Indications: Morbid (severe) obesity due to excess calories (CMS/HCC) Inject 0.5 mg under the skin every 7 (seven) days for 28 days 2 mL 04/10/2024 04/10/2024 Discontinued (Therapy completed)Start: 03-27-2024 End: 76-00-1388Cwqnyispbny-Weight Management (Wegovy) 0.5 MG/0.5ML solution auto-injector Indications: Morbid (severe) obesity due to excess calories (CMS/HCC) , Body mass index (BMI) 36.0-36.9, adult Inject 0.5 mgunder the skin every 7 (seven) days for 28 days 2 mL 03/27/2024 04/10/2024 Discontinued (Cost of medication)Start: 03-27-2024 End: 68-89-2074Uomslqqkqjh-Weight Management (Wegovy) 0.5 MG/0.5ML solution auto-injector Indications: Morbid (severe) obesity due to excess calories (CMS/HCC) , Body mass index (BMI) 36.0-36.9, adult Inject 0.5 mgunder the skin every 7 (seven) days for 28 days 2 mL 03/27/2024 04/24/2024 ActiveSemaglutide- Weight Management (Wegovy) 1 MG/0.5ML solution auto-injector (4 sources)Start: 04-10-2024 End: 68-08-0190Tzchkpsfqdg-Weight Management (Wegovy) 1 MG/0.5ML solution auto- injector Indications: Morbid (severe) obesity due to excess calories (CMS/HCC) Inject 1 mg under the skin every 7 (seven) days for 28 days 2 mL 04/10/2024 05/08/2024 ActiveSemaglutide-Weight Management (Wegovy) 1.7 MG/0.75ML solution auto-injector (2 sources)Start: 05-09-2024 End: 78-80-0569Mawvyybvqlh-Weight Management (Wegovy) 1.7 MG/0.75ML solution auto-injector Indications: Morbid (severe) obesity due to excess calories (CMS/HCC) , BMI 35.0-35.9,adult Inject 1.7 mg under the skin every 7 (seven) days for 28 days 3 mL 05/09/2024 06/06/2024 ActiveSemaglutide-Weight Management (Wegovy) 2.4 MG/0.75ML solution auto-injector (6 sources)Start: 10-08-2024 End: 40-32-3936Hmlzlwbjijd-Weight Management (Wegovy) 2.4 MG/0.75ML solution auto-injector Indications: Morbid (severe) obesity due to excess calories (CMS- HCC) Inject 2.4 mg under the skin every 7 (seven) days for28 days 3 mL 2 10/08/2024 11/05/2024 ActiveStart: 07-05-2024 End: 69-17-3502Vqfgwtlwnzd-Weight Management (Wegovy) 2.4 MG/0.75ML solution auto-injector Indications: Morbid (severe) obesity due to excess calories (CMS/HCC) Inject 2.4 mg under the skin every 7 (seven) days for28 days 3 mL 2 07/05/2024 08/02/2024 ActiveStart: 05-09-2024 End: 18-11-0909Udzxalqkqko-Weight Management (Wegovy) 2.4 MG/0.75ML solution auto-injector Indications: Morbid (severe) obesity due to excess calories (CMS/HCC) , BMI 35.0-35.9,adult Inject 2.4 mg under the skin every 7 (seven) days for 28 days 3 mL 2 05/09/2024 06/06/2024 Activesertraline 50 mg oral tablet (15 sources)Serotonin Reuptake Inhibitorsertraline (Zoloft) 50 MG tablet Take 75 mg by mouth Daily Active3 ml sodium chloride 9 mg/ml injection (2 sources)Start: 46-44-349872 mL, Intravenous, EVERY 12 HOURS SCHEDULED (2 times per day), First dose on Tue12/22/18 at 0900, PostpartumStart: 12-22-2018 take 10 mL intravenous route once10 mL, Intravenous, PRN, Line Care, Starting Tue12/22/18 at 0325 After every IV line use PostpartumtiZANidine 2 mg oral capsule (2 sources)Central alpha-2 Adrenergic AgonistStart: 98-60-2181hiwa 1 capsule by mouth every eight hours as neededZanaflex 2 MG capsule Take 2 mg by mouth every 8 (eight) hours if needed 0 12/27/2022 ActiveStart: 23-42-1181yvDUPhtqlt (Zanaflex) 4 MG tablet Take 4 mg by mouth 0 12/22/2022 Activetopiramate 25 mg oral tablet (9 sources)Start: 02-23-2023 End: 42-23-7385rdrg 2 tablets by mouth at bedtimetopiramate (Topamax) 25 MG tablet Indications: Migraine without aura and without status migrainosus, not intractable (CMS/HCC) Take 2 tablets (50 mg) by mouth at bedtime 60 tablet 1 02/23/2023 ActivevalACYclovir 500 mg oral tablet (20 sources)Herpesvirus Nucleoside Analog DNA Polymerase Inhibitor, Herpes Simplex Virus Nucleoside Analog DNA Polymerase Inhibitor, Herpes Zoster Virus Nucleoside Analog DNA Polymerase InhibitorStart: 39-62-0818eeix 1 tablet by mouth once dailyvalACYclovir (Valtrex) 500 MG tablet Take 500 mg by mouth Daily 06/18/2024 ActiveStart: 03-20-2024 End: 45-47-8351kwjo 1 tablet by mouth once dailyvalACYclovir (Valtrex) 500 MG tablet Indications: Herpesviral infection, unspecified Take 1 tablet (500 mg) by mouth Daily 30 tablet 5 03/20/2024 04/19/2024 ActiveStart: 12-13-2018 End: 39-71-0135pdaf 1 tablet by mouth once dailyvalACYclovir (VALTREX) 500 MG tablet Indications: Hx of herpes genitalis Take 1 tablet by mouth daily 30 tablet 2 12/13/2018 12/23/2018 Discontinued (Stop Taking at Discharge)Start: 23-03-4446xmoq 1 tablet by mouth twice dailyvalACYclovir (VALTREX) 500 MG tablet Take 1 tablet by mouth 2 times daily 60 tablet 2 03/02/2017 Active End: 96-95-6578zhaMQVqqtkbf (Valtrex) 500 MG tablet Take 500 mg by mouth if needed (hpv 2) 03/20/2024 DiscontinuedWegovy 0.25 MG/0.5ML solution auto-injector (3 sources)Start: 03-27-2024 End: 23-49-7919Xipjzn 0.25 MG/0.5ML solution auto-injector Indications: Morbid (severe) obesity due to excess calories (CMS/HCC) Inject 0.25 mg under the skin every 7 (seven) days for 28 days 2 mL 03/27/2024 04/10/2024 Discontinued (Therapy completed)Start: 03-27-2024 End: 54-13-8480Vdmypa 0.25 MG/0.5ML solution auto-injector Indications: Morbid (severe) obesity due to excess calories (CMS/HCC) Inject 0.25 mg under the skin every 7 (seven) days for 28 days 2 mL 03/27/2024 04/24/2024 ActiveWegovy 1.7 MG/0.75ML solution auto-injector (4 sources)Start: 06-19-2024 End: 19-08-7081Hngxeo 1.7 MG/0.75ML solution auto-injector INJECT 1.7mg SUBCUTANEOUSLY (UNDER THE SKIN) EVERY 7 DAYS 06/19/2024 10/08/2024 Discontinued (Therapy completed)Start: 26-49-8321Uchdbg 1.7 MG/0.75ML solution auto-injector INJECT 1.7mg SUBCUTANEOUSLY (UNDER THE SKIN) EVERY 7 DAYS 06/19/2024 Active Wegovy 2.4 MG/0.75ML solution auto-injector (3 sources)Start: 09-27-2024 End: 03-85-3537Qxatln 2.4 MG/0.75ML solution auto-injector Inject 2.4 mg under the skin every 7 (seven) days 09/27/2024 10/08/2024 Discontinued (Reorder)Start: 85-37-2351Axskmz 2.4 MG/0.75ML solution auto-injector Inject 2.4 mg under the skin every 7 (seven) days 09/27/2024 Activewitch saurabh 500 mg/ml medicated pad (1 source)Start: 73-27-7354ocgdx 1 dose topically twice dailyTopical, 2 TIMES DAILY, First dose on Tue12/22/18 at 0900 Apply to perineal area. Patient is capable and may self administer at bedside. Completed/Discontinued Medications MedicationDrug Class(es)DatesSig (Normalized)Sig (Original)amoxicillin 500 mg oral capsule (6 sources)Penicillin-class AntibacterialStart: 04-07-2023 End: 58-92-5553hlar 1 capsule by mouth twice dailyAmoxicillin 500 mg capsule Discontinued 500 MG PO Twice daily April 07, 2023 1:00am May 05, 2023 3:57pmBlood Glucose Monitoring Suppl (TRUE METRIX METER) w/Device KIT (4 sources)Start: 10-23-2018 End: 91-65-7680Aiagb Glucose Monitoring Suppl (TRUE METRIX METER) w/Device KIT use to test blood sugar 0 10/23/2018 12/23/2018 Discontinued (Stop Taking at Discharge)Start: 46-69-7892Inluv Glucose Monitoring Suppl (TRUE METRIX METER) w/Device KIT use to test blood sugar 0 10/23/2018 Activecalcium chloride 0.0014 meq/ml / potassium chloride 0.004 meq/ml / sodium chloride 0.103 meq/ml / sodium lactate 0.028 meq/ml injectable solution (1 source)Start: 12-21-2018 End: 10-84-7982ngofhzxz ringers infusiondextromethorphan hydrobromide 15 mg / guaiFENesin 400 mg / pseudoephedrine hydrochloride 60 mg oraltablet (5 sources)alpha-Adrenergic Agonist, Uncompetitive A-slvbbc-X-aspartate Receptor Antagonist, Sigma-1 AgonistStart: 05-05-2023 End: 58-03-9281wtkc 4 tablets by mouth every twenty-four hours as needed Izaxhmevtzxduol-Yg-Mjbagohbyam (Capmist Dm) 60-15-400 mg tablet Discontinued 1 TAB PO EVERY 4-6 HOURS as needed for cold symptoms May 05, 2023 12:00am July 27, 2024 8:45am do not exceed 4 doses per 24 hrsondansetron 4 mg disintegrating oral tablet (6 sources)Serotonin-3 Receptor AntagonistStart: 04-07-2023 End: 18-98-4885dzfe 1 tablet by mouth every six hours as neededOndansetron 4 mg tablet,disintegrating Discontinued 4 MG PO Every 6 hours as needed April 07, 2023 1:00am May 05, 2023 3:57pmoseltamivir 75 mg oral capsule (5 sources)Neuraminidase InhibitorStart: 05-05-2023 End: 04-20-0858cgat 1 capsule by mouth twice dailyOseltamivir (Tamiflu) 75 mg capsule Discontinued 75 MG PO Twice daily 11 25May 05, 2023 12:00amJun2024 8:45ampredniSONE 20 mg oral tablet (2 sources)Start: 57-71-6776tiik 1 tablet by mouth every twelve hourspredniSONE 20 MG 1 tablet Orally bid for 5 day(s) Nov, Not-Takingrho(d) immune globulin, human 1500 unt prefilled syringe (2 sources)Human Immunoglobulin GStart: 12-22-2018 End: 62-20-5588565 mcg, Intramuscular, PRN, if mom negative and baby positive, Starting Tue12/22/18 at 0325, For 1dose, PostpartumStart: 10-17-2018 End: 33-73-2936mik(D) immune globulin (HYPERRHO S/D) injection 300 mcgsodium phosphate 67.8 mg/ml / sodium phosphate, monobasic 185 mg/ml enema (1 source)Start: 12-06-2018 End: 71-70-9891jyack rectal enema 1 enemaSUMAtriptan 50 mg oral tablet (4 sources)Serotonin-1b and Serotonin-1d Receptor AgonistStart: 12-22-2022 End: 89-11-1968jzod 1 tablet by mouth onceSUMAtriptan (Imitrex) 50 MG tablet Take 50 mg by mouth 1 (one) time if needed 12/22/2022 11/09/2023iscontinued (Therapy completed) Problems Active Problems Problem ClassificationProblemDateDocumented DateEpisodic/ChronicAnxiety disorders (20 sources)Mixed anxiety and depressive disorder; Translations: [Anxiety disorder, unspecified]Onset: 08-23-2023 Resolved: 110788-00-9752OxidiolAzdawdswz hypertension (20 sources)Hypertensive disorder; Translations: [Essential (primary) hypertension]Onset: 892020-78-6540DjolmapQweeopwz; including migraine (20 sources)Migraine without aura, not refractory ; Translations: [Migraine without aura, not intractable, without status migrainosus]Onset: 02-10-2023 25-39-3629YciehngCfddgvri; including migraine (3 sources)Chronic headache disorder; Translations: [Chronic headache disorder] 61-62-1316EbtxkwpmKqikxqwq; including migraine (1 source)Headache; including migraine; Translations: [Headache, unspecified] Onset: 15-42-7720Ceypzzmzyjdv complicating ; childbirth and the puerperium (10 sources)Pre-existing hypertension in obstetric context; Translations: [Pre- existing essential hypertension during in third trimester]12-04-2018 ChronicImmunizations and screening for infectious disease (20 sources)Serology positive; Translations: [Contact with and (suspected) exposure to other viral communicablediseases]Onset: 12-10-2020 Resolved: 804768-77-8328FpuesdnyZraiohibd (3 sources)Influenza due to other identified influenza virus with other respiratory manifestations; Translations: [Influenza due to identified 2009 H1N1 influenza virus with other respiratory manifestations]32-96-3232SaeaadhwCsjbh disorders and dislocations; trauma-related (20 sources)Derangement of left knee; Translations: [Unspecified internal derangement of left knee]Onset: 984212-41-1533RwfivvoWgyvktmcu disorders (20 sources)Amenorrhea; Translations: [Irregular periods]Onset: 02-23-2023 ChronicMood disorders (20 sources)Moderate major depression ; Translations: [Major depressive disorder, single episode, moderate]Onset: 11-09-2023 Resolved: 687569-93-4832OfnfyvzVgjcetwdcfxvxm (20 sources)Osteoarthritis of knee; Translations: [Osteoarthritis of knee, unspecified]Onset: 693570-05-2825TvrjplpZihlf aftercare (1 source)Other senior living (current) drug therapy; Translations: [OTH HAND SHOES SEWER CURRENT DRUG THERAPY]Onset: 69-56-6626UjargqsfAqsoo complications of (14 sources)Anemia in mother complicating , childbirth AND/OR puerperium; Translations: [Anemia affecting in third trimester]Onset: 01-23-2016 Resolved: 344242-87-8646GjivmthVgpgj connective tissue disease (1 source)Other muscle spasm; Translations: [OTHER MUSCLE SPASM]Onset: 84-35-4588JvfdzfpkNtltj connective tissue disease (1 source)Hand painOnset: 86-24-6614WruvrydhCgtao injuries and conditions due to external causes (2 sources)Injury, unspecified, initial encounter; Translations: [Unspecified site injury]52-60-1127AtauwinvHccpg injuries and conditions due to external causes (1 source)Unspecified injury of left wrist, hand and finger(s), initial encounter; Translations: [Unspecifiedinjury of left wrist, hand and finger(s), initial encounter]Onset: 39-77-5071TpnboxcbKuczs nervous system disorders (6 sources)Benign intracranial hypertension; Translations: [Benign intracranial hypertension]79-84-6043EdaehtzHyrke nervous system disorders (1 source)Other chronic pain; Translations: [Other chronic pain]Onset: 62-83-3893DmccgctYhwna nervous system disorders (1 source)Benign intracranial hypertension; Translations: [Benign intracranial hypertension]Onset: 67-74-3250JlzsuneImrca non-traumatic joint disorders (20 sources)Pain in left knee; Translations: [Pain in joint, lower leg]Onset: 06-01-2022 Resolved: 45-02-7585FfgwuggbYcwxu nutritional; endocrine; and metabolic disorders (1 source)Obesity, unspecified; Translations: [OBESITY UNSPECIFIED]Onset: 11-92-3524RtobptaOupgx nutritional; endocrine; and metabolic disorders (20 sources)Obesity caused by energy imbalance; Translations: [Other obesity due to excess calories]Onset: 02-23-2023 Resolved: 717457-00-7055RmvodlhZlqlc nutritional; endocrine; and metabolic disorders (20 sources)Body mass index 30+ - obesity; Translations: [Body mass index (BMI) 35.0-35.9, adult]Onset: 065620-41-0448PxtmvlhOqnit and delivery including normal (20 sources)Delivery normal; Translations: [ with uncertain dates] Onset: 01-09-2016 Resolved: 818892-08-1864ZadzprbuAisjvgyb codes; unclassified (1 source)Gestation period, 27 weeks; Translations: [27 weeks gestation of ]EpisodicResidual codes; unclassified (1 source)Gestation period, 35 weeks; Translations: [35 weeks gestation of ]EpisodicResidual codes; unclassified (8 sources)Gestation period, 34 weeks; Translations: [34 weeks gestation of ]42-94-8884Sxbzompozbm; intervertebral disc disorders; other back problems (3 sources)Cervicalgia; Translations: [CERVICALGIA]Onset: 88-31-9975Tuuxpafu Unclassified (2 sources)Patient encounter status; Translations: [Screen for STD (sexually transmitted disease)]Unclassified (1 source)LOW BACK PAIN, UNSPECIFIED; Translations: [LOW BACK PAIN, UNSPECIFIED] Onset: 44-88-2151Nxkwmafnygwf (2 sources)COUGH, UNSPECIFIED; Translations: [COUGH, UNSPECIFIED]Onset: 18-78-1550Kiwpbngddsfo (1 source)LT Hand Injury- Workers Comp.Onset: 54-06-0682Vzbzt infection (20 sources)Anogenital herpesviral infection; Translations: [Anogenital herpesviral infection, unspecified]Onset: 208942-17-7274VfhyfmaDczrd infection (15 sources)Herpes simplex; Translations: [Herpesviral infection, unspecified] 67-48-4460AwdwyazkKldot infection (2 sources)COVID-19; Translations: [Disease caused by 2019-nCoV]Onset: 09-29-2021 Past or Other Problems Problem ClassificationProblemDateDocumented DateEpisodic/ChronicComplications of surgical procedures or medical care (1 source)Infection following a procedure, unspecified, initial encounter; Translations: [INFECTION FOLLOWINGPROC UNSP INIT]Onset: 72-51-6966Qupdzdef Contraceptive and procreative management (20 sources)Oral contraception status; Translations: [Encounter for surveillance of contraceptive pills]Onset: 593029-35-1856HxfrnuxkKqnxnyed or abnormal glucose tolerance complicating ; childbirth; or the puerperium (20 sources)Gestational diabetes mellitus, class A>1<; Translations: [Gestational diabetes mellitus]Onset: 01-09-2016 Resolved: 058758-50-3939VzdjazunOgbrz or threatened labor (13 sources)Premature uterine contraction; Translations: [ uterine contractions in third trimester, antepartum]Onset: 01-09-2016 Resolved: 833791-10-4968HkzjrlcvEdmqv distress and abnormal forces of labor (20 sources)Irregular uterine contractions; Translations: [Irregular uterine contractions]Onset: 01-07-2016 Resolved: 811232-53-3932LkcdgahbEutjmhdrmrwzw symptoms and ill-defined conditions (18 sources)Urinary symptoms ; Translations: [Unspecified symptoms and signs involving the genitourinary system]Onset: 05-23-2024 Resolved: 377405-71-6713HxixmiueFzgkghl and fatigue (20 sources)Fatigue; Translations: [Other fatigue]Onset: EpisodicNausea and vomiting (13 sources)Nausea and vomiting; Translations: [Nausea and vomiting during ]Onset: 01-22-2016 Resolved: 327075-65-8473KlihdoudRwejawouwppk breast conditions (20 sources)Breast lump; Translations: [Unspecified lump in the right breast, upper outer quadrant]Onset: 858116-63-0155LzscwplkGayav complications of (20 sources)Herpes in ; Translations: [Other viral diseases complicating , unspecified trimester]Onset: EpisodicOther connective tissue disease (20 sources)Pain of left calf; Translations: [Pain in left lower leg]Onset: 02-17-2023 Resolved: 389031-34-9008KpkapjacZarrh gastrointestinal disorders (13 sources)Diarrhea; Translations: [Diarrhea in adult patient]Onset: 01-22-2016 Resolved: 723424-54-2449HvjiytvdWrdlw gastrointestinal disorders (8 sources)Constipation; Translations: [Constipation during in third trimester]Onset: 695333-23-6687QdsjdaogLrdad lower respiratory disease (20 sources)Cough; Translations: [Acute cough]Onset: 01-21-2024 Resolved: 560026-95-7506WuwbyasyHlvtu non-traumatic joint disorders (20 sources)Swollen ankle region; Translations: [Effusion, left ankle]Onset: 06-23-2023 Resolved: 261283-45-3471CzrhfmciArxbt screening for suspected conditions (not mental disorders or infectious disease) (12 sources)Blood urate raised; Translations: [Possible ]Onset: 12-21-2018 Resolved: 197807-43-0342GhxgdnytFfzng skin disorders (4 sources)Localized swelling, mass and lump, head; Translations: [LOCALIZED SWELLING MASS AND LUMP HEAD]Onset: 95-00-3432TunymgznTaycv upper respiratory infections (20 sources)Acute sinusitis, unspecified; Translations: [Acute upper respiratory infection, unspecified]Onset: 12-10-2020 Resolved: 59-87-0743AvvpxfudMnjyanylpcwzvu and other problems of amniotic cavity (20 sources)Polyhydramnios; Translations: [Polyhydramnios with problem]Onset: 01-09-2016 Resolved: 739746-44-0580QpprmnsbSlwxcxbk codes; unclassified (13 sources)Gestation period, 36 weeks; Translations: [36 weeks gestation of ]Onset: 01-22-2016 Resolved: 813851-92-5447QncmwhpvQnwunohu codes; unclassified (13 sources)H/O: miscarriage; Translations: [H/O miscarriage, currently ]Onset: 170986-90-4967WvmigpahSqxhegap codes; unclassified (14 sources)Gestation period, 37 weeks; Translations: [37 weeks gestation of ]Onset: 02-03-2016 Resolved: 729380-72-9298LcgsdurwSxlccezy codes; unclassified (13 sources)Gestation period, 33 weeks; Translations: [33 weeks gestation of ]Onset: 01-07-2016 Resolved: 947665-33-3850EzkmovtdUzsqvkej codes; unclassified (1 source)Gestation period, 34 kdpae34-45-5571XdvanxrxGsrklhbc codes; unclassified (1 source)Gestation period, 38 weeksOnset: 02-09-2016 Resolved: 663652-26-8453GghlgsnoEufpscxv codes; unclassified (20 sources)Non-smoker; Translations: [Other specified health status]Onset: 11-09-2023 Resolved: 709336-67-1121UxirgkhtBlduiabi codes; unclassified (12 sources)Gestation period, 38 weeks; Translations: [38 weeks gestation of ]Onset: 02-09-2016 Resolved: 824196-52-5836Efjukrt and strains (20 sources)Sprain of unspecified ligament of left ankle, initial encounter; Translations: [Sprain of ankle, unspecified site]Onset: 06-21-2023 Resolved: 140233-56-5490HhmwgctaIiirswzkuth injury; contusion (20 sources)Contusion of left knee; Translations: [Contusion of left knee, initial encounter]Onset: 06-23-2023 Resolved: 689171-22-9310KugrbfkzTtynjmwlboec (1 source)COUGH, UNSPECIFIED; Translations: [COUGH, UNSPECIFIED]Onset: 19-48-5541Zddmymy tract infections (20 sources)Urinary tract infection, site not specified; Translations: [Urinary tract infectious disease]Onset: 04-06-2022 Resolved: 373193-24-3565Evlfszxz Results Test NameValueInterpretationReference RangeFacilityAerobic Cultureon 07-27-2024 Aerobic CultureCULTURE ORDER REQUIRED WITH CSF PCR PANEL ORDER Tube Number for CSF Microbiology: 4 No Growth 2 Days CULTURE ORDER REQUIRED WITH CSF PCR PANEL ORDER Tube Number for CSF Microbiology: 4 No Anaerobes Isolated 3 Days CULTURE ORDER REQUIRED WITH CSF PCR PANEL ORDER Tube Number for CSF Microbiology: 4 Gram Stain Result Rare White Blood Cells No Bacteria Seen PERFORMED BY: [address] [address] PATHOLOGIST [employer] MOY HURTADO M.D.[facility] Physician GroupComment on above: Performed By: #### AERC, CSFCCNO #2, CSFCCDIFF, CSF TP, CSF GLU, CSF PCR PANEL, GS #### [address] [address] USACSF PCR Panelon 51-76-6092ZZB PCR PanelTube Number for CSF Microbiology: 4 Cytomegalovirus Not detected Cryptococcus neoformans or gattii 9002 Not detected Escherichia coli K1 Not detected Enterovirus Not detected Haemophilus influenzae (reported as H flu) Not detected Human herpesvirus 6 Not detected Herpes simplex virus 1 Not detected Herpes simplex virus 2 DNA [Presence] in Cerebral spinal fluid by GERALDINE with non- probe detection Not detected Listeria monocytogenes (reported as listeriosis) Not detected Neisseria meningitidis - reported as meningococcal disease Not detected Human parechovirus Not detected Streptococcus pneumoniae - reported at ISP Not detected Group B Strep (Streptococcus agalactiae) Not detected Varicella zoster virus Not detected PERFORMED BY: [address] [address] PATHOLOGIST [employer] MOY HURTADO M.D.[facility] Physician GroupComment on above: Performed By: #### AERC, CSFCCNO #2, CSFCCDIFF, CSF TP, CSF GLU, CSF PCR PANEL, GS #### [facility] [address] [place] [address] USACell Count Differential,CSFon 35-58-7084Nxvppjurjw, CSF0 NormalThe [facility] Physician GroupComment on above:Result Comment: The reference interval and other method performance specifications have not been established for this body fluid. The test result must be integrated into the clinical context for interpretation.Performed By: #### AERC, CSFCCNO #2, CSFCCDIFF, CSF TP, CSF GLU, CSF PCR PANEL, GS #### [facility] [address] [place] [address] USALymphocytes, MYK5KaynfzKua [facility] Physician Group Comment on above:Result Comment: The reference interval and other method performance specifications have not been established for this body fluid. The test result must be integrated into the clinical context for interpretation.Performed By: #### AERC, CSFCCNO #2, CSFCCDIFF, CSF TP, CSF GLU, CSF PCR PANEL, GS #### [facility] [address] [place] [address] USAMonocytes, FIH5DzroukByc [facility] Physician GroupComment on above:Result Comment: The reference interval and other method performance specifications have not been established for this body fluid. The test result must be integrated into the clinical context for interpretation.Performed By: #### AERC, CSFCCNO #2, CSFCCDIFF, CSF TP, CSF GLU, CSF PCR PANEL, GS #### [facility] [address] [place] [address] USANeutrophils, WAK1IxefzuHanSt. [facility] Physician Group Comment on above:Result Comment: The reference interval and other method performance specifications have not been established for this body fluid. The test result must be integrated into the clinical context for interpretation.Performed By: #### AERC, CSFCCNO #2, CSFCCDIFF, CSF TP, CSF GLU, CSF PCR PANEL, GS #### [facility] [address] [place] [address] USARBC, CSF19 /uLNormGreen Cross Hospitale [facility] Physician GroupComment on above:Result Comment: The reference interval and other method performance specifications have not been established for this body fluid. The test result must be integrated into the clinical context for interpretation.Performed By: #### AERC, CSFCCNO #2, CSFCCDIFF, CSF TP, CSF GLU, CSF PCR PANEL, GS #### [place] [address] USATNC, CSF1 /uLNormal0-5The [facility] Physician GroupComment on above:Performed By: #### AERC, CSFCCNO #2, CSFCCDIFF, CSF TP, CSF GLU, CSF PCR PANEL, GS #### [place] [address] USATube Number Tested, CSFTube Number: 1NormalHca [facility] Physician [facility] Of GreenvilleComment on above:Result Comment: PERFORMED BY: [place] [address] PATHOLOGIST [employer] MOY HURTADO M.D.Performed By: #### AERC, CSFCCNO #2, CSFCCDIFF, CSF TP, CSF GLU, CSF PCR PANEL, GS #### [place] [address] USACell Count No Diff,CSF #2on 72-80-5791Monxmjgaoo, CSFClear NormalClearThe [facility] Physician GroupComment on above:Performed By: #### AERC, CSFCCNO #2, CSFCCDIFF, CSF TP, CSF GLU, CSF PCR PANEL, GS #### [place] [address] USAColor, CSFColorlessNormalColorlessHca [facility] Physician GroupComment on above:Performed By: #### AERC, CSFCCNO #2, CSFCCDIFF, CSF TP, CSF GLU, CSF PCR PANEL, GS #### [place] [address] USACSF Supernatant ColorColorlessNormalColorlessHca [facility] Physician [facility] Of GreenvilleComment on above:Performed By: #### AERC, CSFCCNO #2, CSFCCDIFF, CSF TP, CSF GLU, CSF PCR PANEL, GS #### [place] [address] USACSF Volume, Total28.0 mLNormalThe [place] Physician GroupComment on above:Performed By: #### AERC, CSFCCNO #2, CSFCCDIFF, CSF TP, CSF GLU, CSF PCR PANEL, GS #### [place] [address] USARBC, CSF1 /uLNormSt. Joseph's Hospital Physician GroupComment on above:Result Comment: The reference interval and other method performance specifications have not been established for this body fluid. The test result must be integrated into the clinical context for interpretation.Performed By: #### AERC, CSFCCNO #2, CSFCCDIFF, CSF TP, CSF GLU, CSF PCR PANEL, GS #### [place] [address] USATNC, CSF0 /uLNormal0-5The [facility] Physician GroupComment on above:Performed By: #### AERC, CSFCCNO #2, CSFCCDIFF, CSF TP, CSF GLU, CSF PCR PANEL, GS #### [place] [address] USATube Number Tested, CSFTube Number: 4NoWyandot Memorial HospitalComment on above:Result Comment: PERFORMED BY: [place] [address] PATHOLOGIST [employer] MOY HURTADO M.D.Performed By: #### AERC, CSFCCNO #2, CSFCCDIFF, CSF TP, CSF GLU, CSF PCR PANEL, GS #### [place] [address] USACerebrospinal fluid color identificationOrdered By: Briana Gordon on 01-22-8428Wgqvp (CSF)Color CSFCoCrystal Clinic Orthopedic CenterCerebrospinal fluid post-centrifugation appearance determination Ordered By: Briana Gordon on 67-41-4531Meobtytinc (Spun CSF)Cerebrospinal fluid post-centrifugation appearance determinationColorCity HospitalCerebrospinal fluid sample tube volume measurementOrdered By: Briana Gordon on 53-32-6527Napknqip volume (CSF)Cerebrospinal fluid sample tube volume measurementRegional Medical CenterDetermination of appearance of cerebrospinal fluidOrdered By: Briana Gordon on 07-27-2024 Appearance (CSF)Cerebrospinal fluid appearance descriptionCleCity HospitalGlucose [Mass/volume] in Cerebral spinal fluidOrdered By: Briana Gordon on 69-36-0988Zrwvhox (CSF) [Mass/Vol]Glucose [Mass/volume] in Cerebral spinal -06IqqasbsngRegional Medical CenterGlucose, Spinal Fluidon 22-73-9736Gzgcswz, Spinal Fluid54 mg/oLTvzaow60-95Tyx [facility] Physician GroupComment on above:Performed By: #### AERC, CSFCCNO #2, CSFCCDIFF, CSF TP, CSF GLU, CSF PCR PANEL, GS #### [place] [address] USAGram Stainon 43-14-3309Bpvqsexumnb observation Gram stain Nom (Unsp spec)CULTURE ORDER REQUIRED WITH CSF PCR PANEL ORDER Tube Number for CSF Microbiology: 4 Gram Stain Result Rare White Blood Cells No Bacteria Seen PERFORMED BY: [place] [address] PATHOLOGIST [employer] MOY HURTADO M.D.NormalThe [facility] Physician GroupComment on above: Performed By: #### AERC, CSFCCNO #2, CSFCCDIFF, CSF TP, CSF GLU, CSF PCR PANEL, GS #### [place] [address] USAIR guided lumbar puncture LPon 96-33-9915GQ guided lumbar puncture [facility] [place] [address] [place] [address] Interventional Radiology Rpt Signed Patient: Robles Yen MR#: [id number] : 1985 Acct:[id number] Age/Sex: 39 / F ADM Date: 07/27/24 Loc: XD [facility]: Briana Gordon DO Copies to: Briana Gordon DO Ordering Provider: Briana Gordon DO Date of Service: 07/27/24 IR/IR guided lumbar puncture LP: IIH IR guided lumbar puncture LP 07/27/2024 10:41 AM SIGNS AND SYMPTOMS: Migraine headaches, MR features suggesting intracranial hypertension INFORMED CONSENT: Reason for procedure was discussed with the patient. The procedure expectations risks benefits options and alternatives were discussed. All the questions were answered. The patient understood the results cannot be guaranteed. The procedure is indicated and risks were acceptable. Consent was obtained. PROCEDURE: A fluoroscopically guided lumbar puncture was performed at the L3-L4 level on the right via a right sublaminar approach. The patient was prepped and draped in a sterile manner. 5 mL of lidocaine 1% without epinephrine were used for local anesthesia. A 20-gauge spinal needle was introduced into the subarachnoid space on the right atL3-L4 via a right sublaminar approach. With the patient in the left lateral decubitus position the opening pressure was measured at 25 cm CSF. After removal of 28 mL of clear CSF the closing pressure was measured at 10 cm CSF. The needle was removed and hemostasis was obtained using manual pressure. Cumulative Air Kerma in mGy: 2.1 mGy The patient tolerated the procedure well. No immediate complications were detected. IR/IR guided lumbar puncture LP IMPRESSION: Successful fluoroscopically guided lumbar puncture with opening pressure of 25 cm CSF a closing pressure of 10 cm CSF. Impression dictated by: Vincenzo Good M.D. 07/27/2024 11:27 AM Dictation Location: [place] [address] Transcribed By: [facility] 07/27/24 1127 Dictated By: Vincenzo Good II, MD 07/27/24 112 Signed By: 07/27/[address] [place] [address] Physician GroupInterventional radiology report Ordered By: Vincenzo Good on 76-06-1421Zuigv reportGREENE [facility] [address] Interventional Radiology Rpt Signed Patient: Robles Yen MR#: [id number] : 1985 Acct:[id number] Age/Sex: 39 / F ADM Date: 5 Loc: XD Room: Type: [facility] Attending Dr: Briana Gordon DO Copies to: Briana Gordon DO~ Ordering Provider: Briana Gordon DO Date of Service: 07/27/24 IR/IR guided lumbar puncture LP: II IR guided lumbar puncture LP 07/27/2024 10:41 AM SIGNS AND SYMPTOMS: Migraine headaches, MR features suggesting intracranial hypertension INFORMED CONSENT: Reason for procedure was discussed with the patient. The procedure expectations risks benefits options and alternatives were discussed. All the questions were answered. The patient understood the results cannot be guaranteed. The procedureis indicated and risks were acceptable. Consent was obtained. PROCEDURE: A fluoroscopically guided lumbar puncture was performed at the L3-L4 level on the right via a rightsublaminar approach. The patient was prepped and draped mone sterile manner. 5 mL of lidocaine 1% without epinephrine were used for local anesthesia. A 20-gauge spinal needle was introduced into the subarachnoid space on the right atL3-L4 via a right sublaminar approach. With the patient in the leftlateral decubitus position the opening pressure was measured at 25 cm CSF. After removal of 28 mL of clear CSF the closing pressure was measured at 10 cm CSF. The needle was removed and hemostasis was obtained using manual pressure. Cumulative Air Kerma in mGy: 2.1 mGy The patient tolerated the procedure well. No immediate complications were detected. IR/IR guided lumbar puncture LP IMPRESSION: Successful fluoroscopically guided lumbar puncture with opening pressure of 25 cm CSF a closing pressure of 10 cm CSF. Impression dictated by: Vincenzo Good M.D. 07/27/2024 11:27 AM Dictation Location: [place] [address] Transcribed By: [facility] 07/27/241126 Dictated By: Vincenzo Good II, MD 07/27/241124 Signed By: 07/27/241126 [facility] Work Phone: [place] 07-27-2024L Specimen: [id number] Received: 07/30/24 Status: STEPHAN Carty Num: [id number] Spec Type: Cytology Subm Dr: Vincenzo Good II, MD Tissues: A CSF (CSF) Procedures: Cyto Prepstain, DIFF QWIK, PAPSTN Age/ Patient Sex Location Account Attending Physician Robles Yen 39/F XD [id number] Briana Gordon DO SPEC NUM: [id number] RECD: 07/30/24 STATUS: STEPHAN CARTY NUM: [id number] JEWEL: 07/27/24-1041 [facility] DR: Vincenzo Good II, MD ENTERED: 07/30/[address] [facility] [address]: Briana Gordon DO SPEC TYPE: Cytology DEPT: QUIANA ENTERED BY: [id number] RECV BY: [id number] ORDERED: Cyto Prepstain, DIFF QWIK, PAPSTN ORDERED: Cyto Prepstain, DIFF QWIK, PAPSTN Pathological Diagnosis A. Cerebrospinal fluid (lumbar puncture with Cytospin preparations x 2): Adequacy: Adequate for evaluation Diagnostic category: Benign Descriptive diagnosis: Essentially acellular specimen. No acute inflammation or malignancy seen. Clinical Information Headaches,Left Eye Migraines Gross Description Received fresh is 12 ml colorless clear unfixed fluid for cytology said to have been obtained as Spinal Fluid. Cytospin slides are stained with Papanicolaou and Diff-Quik stains. (CA/nh) CPT Codes 78760 Specimen: [id number] Received: 07/30/24 Status: STEPHAN Carty Num: [id number] Spec Type: Cytology Subm Dr: Vincenzo Good II, MD Tissues: A CSF (CSF) Procedures: Cyto Prepstain, DIFF QWIK, PAPSTN Patient: Robles Yen [id number] (Continued) Signed (signature on file) Vignesh Mccollum Jr., MD 07/31/24 1531NormSt. Joseph's Hospital Physician GroupManual cerebrospinal fluid erythrocytes count (number/volume)Ordered By: Briana Gordon on 07-27-2024 RBC Manual cnt (CSF) [#/Vol]Manual cerebrospinal fluid erythrocytes count (number/volume)Regional Medical CenterComment on above:The reference interval and other method performance specifications have not been established for this body fluid. The test result must be integrated into the clinical context for interpretation.No Panel InformationOrdered By: Briana Gordon on 10-41-1081JYE Tube NumberTube number: 4FSamaritan North Health Center Nucleated cells [#/volume] in Cerebral spinal fluid by Manual countOrdered By: Briana Gordon on 43-26-6360Yrrnkggic cells Manual cnt (CSF) [#/Vol] Nucleated cells [#/volume] in Cerebral spinal fluid by Manual count0-5FSamaritan North Health CenterProtein [Mass/volume] in Cerebral spinal fluidOrdered By: Briana Gordon on 94-47-6831Gbzlerg (CSF) [Mass/Vol]Protein [Mass/volume] in Cerebral spinal vjhnu36-45ChgexfbpsRegional Medical CenterTotal Protein, Spinal Fluidon 20-97-7640Reefj Protein, Spinal Fluid19 mg/xBZzswco44-70Rtb [facility] Physician GroupComment on above:Result Comment: PERFORMED BY: [place] [address] PATHOLOGIST [employer]APER MOY HURTADO M.D.Performed By: #### AERC, CSFCCNO #2, CSFCCDIFF, CSF TP, CSF GLU, CSF PCR PANEL, GS #### [place] [address] USAMR venography head wo [facility] 46-62-8665ET venography head wo [facility] [place] [address] [place] [address] MRI Report Signed Patient: Robles Yen MR#: [id number] : 1985 Acct:[id number] Age/Sex: 39 / F ADM Date: 07/10/24 Loc: MR Room: Type: [facility] Attending Dr: Briana Gordon DO Copies to: Briana Gordon DO Ordering Provider: Briana Gordon DO Date of Service: 07/10/24 MR/MR venography head wo con: G93.2 MR venogram INDICATION: Chronic migraines, idiopathic intracranial hypertension COMPARISON: None FINDINGS: No restricted diffusion. Ventricles and sulci normal in size and configuration for the patient's age. No shift of midline structure basal cisterns are patent. No significant white matter changes on the T2 FLAIR images. Cerebellar tonsils terminates at the level of foramen magnum. No cerebellar tonsillar ectopia.. Partially empty sella turcica noted with flattening of the pituitary gland. Diminished mamillary pontine distance 4.2 mm.. No definite MR findings of papilledema.. Dural venous sinuses are patent. Hypoplastic right transverse and sigmoid sinus, a normal variant. Slight tapering appearance of the right transverse evidence of sigmoid sinuses without definite high-grade narrowing or occlusion. Mild paranasal sinus mucoperiosteal thickening. MR/MR venography head wo con IMPRESSION: MRI findings which may suggest underlying intracranial hypertension. No tonsillar ectopia. Negative for dural venous sinus thrombosis. Impression dictated by: Ollie Beyer M.D. 07/10/2024 8:29 AM Dictation Location: [place] [address] Transcribed By: [facility] 07/10/24 0829 Dictated By: Ollie Beyer MD 07/10/24 0820 Signed By: 07/10/24 0829[facility] Physician GroupSRMCOH PROTHROMBIN TIME INR W/O COUMon 01-88-2815OA Coag (PPP) [Time]10 sNOMS HealthcareTBH INR0.94NOMS HealthcareComment on above:DESIRED INR: 2.0-3.0 CONDITIONS NOT LISTED BELOW 2.5-3.5 FOR PROSTHETIC HEART VALVE REPLACEMENT 2.5-3.5 RECURRENT THROMBOSIS CLINISYNCNOMS HealthcareALL CBC WITH AUTO DIFFon 06-49-5072HNIQENQKJ ABSOLUTE YBJP8IRIW HealthcareBasophils/100 WBC (Bld)0.4 %0.2 - 2.0 %[facility] Eosinophils/100 WBC (Bld)2.7 %0.9 - 7.0 %NOMS HealthcareErythrocyte distribution width (RBC) [Ratio]11.9 %11.0 - 15.0 %NOMS HealthcareHematocrit (Bld) [Volume fraction]38.1 %36.0 - 48.0 %NOMS HealthcareHemoglobin (Bld) [Mass/Vol]13 g/dL 12.0 - 16.0 g/dLNOMS HealthcareIMMATURE GRANULOCYTES ABS AUTO0.02NOMS Healthcare Immature granulocytes/100 WBC (Bld)0.3 %0.0 - 0.5 %NOMS HealthcareLYMPHOCYTES ABSOLUTE AUTO1.6NOMS HealthcareLymphocytes/100 WBC (Bld)22.4 %20.5 - 60.0 %NOMS CentervilleMCH (RBC) [Entitic mass]29.3 pg26.7 - 34.0 pgNOMS CentervilleMCHC (RBC) [Mass/Vol]34.1 g/dL29.9 - 35.2 g/dLNOMercy Hospital St. John'sMCV (RBC) [Entitic vol]86 fL 81.0 - 99.0 fLNOKS HealthcareMONOCYTES ABSOLUTE AUTO0.5NOMS Healthcare Monocytes/100 WBC (Bld)6.7 %1.7 - 12.0 %NOMS HealthcareNEUTROPHILS ABSOLUTE AUTO 4.7NOMS HealthcareNeutrophils/100 WBC (Bld)67.5 %43.0 - 75.0 %NOMS [place] Platelet mean volume (Bld) [Entitic vol]11.3 fL9.5 - 13.5 fLNOMS HealthcareTBH EO #0.2NOMS HealthcareTBH LOD629YJFX HealthcareTBH RBC4.43NOMS HealthcareTBH WBC 7NOMS HealthcareCLINISYNCNOMS HealthcareMR HEAD/BRAIN WO CONon 02-83-9337N[address] [address] Magnetic Resonance Report Signed Patient: ROBLES YEN MR#: [id number] : 1985 Acct:[id number] Age/Sex: 39 / F ADM Date: 04/16/24 Loc: MRI Attending Dr: Kika Guaman NP Ordering Physician: Kika Guaman NP Date of Service: 04/16/24 Procedure(s): MR head/brain wo con Accession Number(s): [id number] cc: Kika Guaman NP [place] [address] Patient [facility]: [facility]BLES [id number] date: 1985 Sex: F Assigned Patient Location: MRI Current Patient Location: MRI Accession/Order Number: [id number] Exam Date: 04/16/2024 15:32 Report Date: 04/16/2024 [...] Pascale Pena M.D.04/16/2024 3:55 PM Dictation Location: [place] [address] Electronically authenticated by: [id number] Y Date: 04/16/2024 15:55 Dictated By: Pascale Pena M.D. Signed By: 04/16/24 1557 DD/ 155 TD/TT: Client Representative:TBHRadiology, Radiologist, - 04/16/2024 [place] [address] Magnetic Resonance Report Signed Patient: ROBLES YEN MR#: [id number] : 1985 Acct:[id number] Age/Sex: 39 / F ADM Date: 04/16/24 Loc: MRI Attending Dr: Kika Guaman NP Ordering Physician: Kika Guaman NP Date of Service: 04/16/24 Procedure(s): MR head/brain wo con Accession Number(s): [id number] cc: Kika Guaman NP The [place] [address] Patient Name: ROBLES YEN MRN: [id number] date: 1985 Sex: F Assigned Patient Location: MRI Current Patient Location: MRI Accession/Order Number: [id number] Exam Date: 04/16/2024 15:32 Report Date: 04/16/2024 [...] Pascale Pena M.D.04/16/2024 3:55 PM Dictation Location: [place] [address] Electronically authenticated by: [id number] Y Date: 04/16/2024 15:55 Dictated By: Pascale Pena M.D. Signed By: 04/16/24 1557 DD/ 1555 TD/TT: Client Representative: SWATHI HealthcareRadiology Study observation (narrative)[facility] HEAD/BRAIN WO CONOrdered By: Radiologist Radiology on 94-10-0478BRXW Healthcare Work Phone: XR HAND LT MIN 3 VWSon 54-66-1776GD HAND LT MIN 3 VWS XR HAND [...] and agree with and/or edited the report Finalized by Pete Raphael MD on 02/04/2024 5:20 [facility] HospitalMR ANKLE LT WO CONon 02-72-[address]807[address] [address] Magnetic Resonance Report Signed Patient: ROBLES YEN MR#: [id number] : 1985 Acct:[id number] Age/Sex: 38 / F ADM Date: 10/17/23 Loc: MRI Attending Dr: Latesha Resendez Ordering Physician: Latesha Resendez Date of Service: 10/17/23 Procedure(s): MR ankle LT wo con Accession Number(s): [id number] cc: Kika Guaman SPECIAL EDUCATION SUPERINTENDENT; Latesha Resendez [address] [address] Patient Name: ROBLES YEN MRN: [id number]:[id number] date: 1985 Sex: F Assigned Patient Location: MRI Current Patient Location: MRI Accession/Order Number: [id number] Exam Date: 10/17/2023 09:55 Report Date: 10/17/2023 20:51 At the request of: LATESHA RESENDEZ Procedure: MR ankle LT wo con EXAM: MR ankle LT wo con HISTORY: Left Ankle Instability, Left Peroneal Tendonitis COMPARISON: 07/05/2023 TECHNIQUE: MRI images obtained with multiple sequences. MRI of the left ankle without contrast. Sequences obtained by standard department [...] significant joint degeneration. Electronically authenticated by: FRANCISCO LIMON Date: 10/17/2023 20:51 Dictated By: Francisco Limon M.D. Signed By: 10/17/232053 DD/ 50 TD/TT: Client Representative:DAXAHRadiology, Radiologist, - 10/17/2023 [place] [address] Magnetic Resonance Report Signed Patient: ROBLES YEN MR#: [id number] : 1985 Acct:[id number] Age/Sex: 38 / F ADM Date: 10/17/23 Loc: MRI Attending Dr: Latesha Resendez Ordering Physician: Latesha Resendez Date of Service: 10/17/23 Procedure(s): MR ankle LT wo con Accession Number(s): [id number] cc: Kika Guaman NP; Latesha Resendez The [place] [id number] Patient Name: ROBLES YEN MRN: [id number] date: 1985 Sex: F Assigned Patient Location: MRI Current Patient Location: MRI Accession/Order Number: [id number] Exam Date: 10/17/2023 09:55 Report Date: 10/17/2023 20:51 At the request of: LATESHA WILCOXEN Procedure: MR ankle LT wo con EXAM: MR ankle LT wo con HISTORY: Left Ankle Instability, Left Peroneal Tendonitis COMPARISON: 07/05/2023 TECHNIQUE: MRI images obtained with multiple sequences. MRI of the left ankle without contrast. Sequences obtained by standard department [...] significant joint degeneration. Electronically authenticated by: FRANCISCO LIMON Date: 10/17/2023 20:51 Dictated By: Francisco Limon M.D. Signed By: 10/17/232053 DD/ 50 TD/TT: Client Representative: SWATHI CentervilleRadiology Study observation (narrative)[facility] ANKLE LT WO CONOrdered By: Radiologist Radiology on 74-13-5705YXTMFreeman Orthopaedics & Sports Medicine Work Phone: XR ANKLE LT MIN 3Von 18-32-6901[place], [place] [id number] XRay Report Signed Patient: ROBLES YEN MR#: [id number] : 1985 Acct:[id number] Age/Sex: 38 / F ADM Date: 07/05/23 Loc: EC Attending Dr: Clau Lindsey D.P.M. Ordering Physician: Clau Lindsey D.P.M. Date of Service: 07/05/23 Procedure(s): XR ankle LT min 3V Accession Number(s): [id number] cc: Kika Guaman NP; Clau Lindsey D.P.M. The [place] [id number] Patient Name: ROBLES YEN MRN: [id number]:[id number] date: 1985 Sex: F Assigned Patient Location: Current Patient Location: EC Accession/Order Number: [id number] Exam Date: 07/05/2023 11:12 Report Date: 07/05/2023 15:37 At the request of: CLAU LINDSEY Procedure: XR ankle LT min 3V PROCEDURE: XR ankle LT min 3V HISTORY: LEFT ANKLE PAIN ; lateral ankle pain, rolled ankle 2 weeks ago COMPARISON: XR ankle left 06/23/2023 FINDINGS: BONES:Stable small ossification distal to the lateral malleolus which appear to be corticated, favoring sequela of remote injury. Unremarkable ankle joint space. SOFT TISSUES:Mild soft tissue swelling. EFFUSION:None visible. OTHER: Negative. XR/XR ankle LT min 3V IMPRESSION: 1. No convincing acute bone abnormality. Electronically authenticated by: DEEJAY REES Date: 07/05/2023 15:37 Dictated By: Deejay Rees M.D. Signed By: 07/05/23 1539 DD/ 1537 TD/TT: Client Representative:DAXAHRadiology, Radiologist, - 07/05/2023 [place] [address] XRay Report Signed Patient: ROBLES YEN MR#: [id number] : 1985 Acct:[id number] Age/Sex: 38 / F ADM Date: 07/05/23 Loc: EC Attending Dr: Clau Lindsey D.P.M. Ordering Physician: Clau Lindsey D.P.M. Date of Service: 07/05/23 Procedure(s): XR ankle LT min 3V Accession Number(s): [id number] cc: Kika Guaman NP; Clau Lindsey D.P.M. The [place] [address] Patient Name: ROBLES YEN MRN: [id number]:[id number] date: 1985 Sex: F Assigned Patient Location: Current Patient Location: Accession/Order Number: [id number] Exam Date: 07/05/2023 11:12 Report Date: 07/05/2023 15:37 At the request of: CLAU LINDSEY Procedure: XR ankle LT min 3V PROCEDURE: XR ankle LT min 3V HISTORY: LEFT ANKLE PAIN ; lateral ankle pain, rolled ankle 2 weeks ago COMPARISON: XR ankle left 06/23/2023 FINDINGS: BONES:Stable small ossification distal to the lateral malleolus which appear to be corticated, favoring sequela of remote injury. Unremarkable ankle joint space. SOFT TISSUES:Mild soft tissue swelling. EFFUSION:None visible. OTHER: Negative. XR/XR ankle LT min 3V IMPRESSION: 1. No convincing acute bone abnormality. Electronically authenticated by: DEEJAY REES Date: 07/05/2023 15:37 Dictated By: Deejay Rees M.D. Signed By: 07/05/23 1539 DD/ 1537 TD/TT: Client Representative: SWATHI HealthcareRadiology Study observation (narrative)NOMS HealthcareXR ANKLE LT MIN 3VOrdered By: Radiologist Radiology on 99-20-2386DDCM Healthcare Work Phone: XR ANKLE LT MIN 3Von 49-21-4208[place], [place] [id number] XRay Report Signed Patient: ROBLES YEN MR#: [id number] : 1985 Acct:[id number] Age/Sex: 38 / F ADM Date: 06/23/23 Loc: LAB Attending Dr: Kika Guaman NP Ordering Physician: Kika Guaman NP Date of Service: 06/23/23 Procedure(s): XR ankle LT min 3V Accession Number(s): [id number] cc: Kika Guaman NP [place] [id number] Patient Name: ROBLES YEN MRN: [id number] date: 1985 Sex: F Assigned Patient Location: LAB Current Patient Location: LAB Accession/Order Number: [id number] Exam Date: 06/23/2023 11:52 Report Date: 06/23/2023 13:05 At the request of: KIKA GUAMAN Procedure: XR ankle LT min 3V PROCEDURE: XR ankle LT min 3V COMPARISON: None. HISTORY: left ankle swelling m25.472 FINDINGS: BONES:Bone fragment identified along the inferior lateral malleolus measuring 7.7 mm, this is age-indeterminate. No dislocation. SOFT TISSUES:Negative. No visible soft tissue swelling. EFFUSION:None visible. OTHER: Negative. XR/XR ankle LT min 3V IMPRESSION: Bone fragment along the inferior lateral malleolus, age-indeterminate injury Electronically authenticated by: KEKE CARVALHO Date: 06/23/2023 13:05 Dictated By: Keke Carvalho M.D. Signed By: 06/23/23 1308 DD/ 1305 TD/TT: Client Representative:TBHRadiology, Radiologist, - 06/23/[address] [address] XRay Report Signed Patient: ROBLES YEN MR#: [id number] : 1985 Acct:[id number] Age/Sex: 38 / F ADM Date: 06/23/23 Loc: LAB Attending Dr: Kika Guaman SPECIAL EDUCATION SUPERINTENDENT Ordering Physician: Kika Guaman NP Date of Service: 06/23/23 Procedure(s): XR ankle LT min 3V Accession Number(s): [id number] cc: Kika Guaman NP The [address] [address] Patient Name: ROBLES YEN MRN: [id number]:[id number] date: 1985 Sex: F Assigned Patient Location: LAB Current Patient Location: LAB Accession/Order Number: [id number] Exam Date: 06/23/2023 11:52 Report Date: 06/23/2023 13:05 At the request of: KIKA GUAMAN Procedure: XR ankle LT min 3V PROCEDURE: XR ankle LT min 3V COMPARISON: None. HISTORY: left ankle swelling m25.472 FINDINGS: BONES:Bone fragment identified along the inferior lateral malleolus measuring 7.7 mm, this is age-indeterminate. No dislocation. SOFT TISSUES:Negative. No visible soft tissue swelling. EFFUSION:None visible. OTHER: Negative. XR/XR ankle LT min 3V IMPRESSION: Bone fragment along the inferior lateral malleolus, age-indeterminate injury Electronically authenticated by: KEKE CARVALHO Date: 06/23/2023 13:05 Dictated By: Keke Carvalho M.D. Signed By: 06/23/23 1308 DD/ 1305 TD/TT: Client Representative: SWATHI HealthcareRadiology Study observation (narrative)[facility] Sports MedicineXR ANKLE LT MIN 3VOrdered By: Radiologist Radiology on 82-29-5310UUQT Healthcare Work Phone: XR Knee - left 3 Viewson 04-97-2796[place], [place] [id number] XRay Report Signed Patient: ROBLES YEN MR#: [id number] : 1985 Acct:[id number] Age/Sex: 38 / F ADM Date: 06/23/23 Loc: LAB Attending Dr: Kika Guaman SPECIAL EDUCATION SUPERINTENDENT Ordering Physician: Kika Guaman NP Date of Service: 06/23/23 Procedure(s): XR knee LT 3V Accession Number(s): [id number] cc: Kika Guaman NP [place] [id number] Patient Name: ROBLES YEN MRN: [id number] date: 1985 Sex: F Assigned Patient Location: LAB Current Patient Location: LAB Accession/Order Number: [id number] Exam Date: 06/23/2023 11:52 Report Date: 06/23/2023 [...] acute radiographic abnormality Electronically authenticated by: KEKE CARVALHO Date: 06/23/2023 12:56 Dictated By: Keke Carvalho M.D. Signed By: 06/23/23 1258 DD/ 1256 TD/TT: Client Representative:TBHRadiology, Radiologist, - 06/23/2023 [place] [address] XRay Report Signed Patient: ROBLES YEN MR#: [id number] : 1985 Acct:[id number] Age/Sex: 38 / F ADM Date: 06/23/23 Loc: LAB Attending Dr: Kika Guaman SPECIAL EDUCATION SUPERINTENDENT Ordering Physician: Kika Guaman NP Date of Service: 06/23/23 Procedure(s): XR knee LT 3V Accession Number(s): [id number] cc: Kika Guaman NP [address] [address] Patient Name: ROBLES YEN MRN: [id number] date: 1985 Sex: F Assigned Patient Location: LAB Current Patient Location: LAB Accession/Order Number: [id number] Exam Date: 06/23/2023 11:52 Report Date: 06/23/2023 [...] acute radiographic abnormality Electronically authenticated by: KEKE CARVALHO Date: 06/23/2023 12:56 Dictated By: Keke Carvalho M.D. Signed By: 06/23/23 1258 DD/ 1256 TD/TT: Client Representative: SWATHI HealthcareRadiology Study observation (narrative)SWATHI HealthcareXR Knee - left 3 ViewsOrdered By: Radiologist Radiology on 66-01-1937SUSD [facility] Work Phone: Influenza virus B Ag [Presence] in Upper respiratory specimen by Rapid immunoassayon 45-79-4818PMYQM Ag IA.rapid Ql (Nph)Negative [facility] CenterNo Panel Informationon 40-05-2364Yqbtiyknn Type A (Rapid)PositiveRegional Medical CenterPO SARS CoV-2 Antigen NegativeRegional Medical CenterMM TOMOSYNTHESIS DIAGNOSTIC BIon 09-49-2001[place], [place] [id number] Mammography Report Signed Patient: ROBLES YEN MR#: [id number] : 1985 Acct:[id number] Age/Sex: 38 / F ADM Date: 04/13/23 Loc: MAMMO Attending Dr: Kika Guaman NP Ordering Physician: Kika Guaman NP Results: Date of Service: 04/13/23 Follow Up: Procedure(s): MM tomosynthesis diagnostic BI Accession Number(s): [id number] cc: Kika Guaman NP Patient Name: ROBLES YEN MR#: [id number] : 1985 Exam Date: 04/13/2023 Ordering Doctor: [...] Cancers Aunt-maternal with breast cancer at age 50; Aunt-maternal with breast cancer at age 22; Uncle-maternal with prostate cancer at age 70. LOCATION: [facility] BREAST COMPOSITION: Scattered areas fibroglandular density. FINDINGS: DIAGNOSTIC CATEGORY 1--NEGATIVE. RIGHT BREAST: No significant suspicious finding on mammographic evaluation. Ultrasound evaluation demonstrates normal appearing fibroglandular tissue within the upper-outer quadrant or patient localizes the palpable lump. LEFT BREAST: No significant suspicious finding. RECOMMENDATIONS: CLINICAL EVALUATION. PLEASE NOTE: A NORMAL MAMMOGRAM DOES NOT EXCLUDE THE POSSIBILITY OF BREAST CANCER. A CLINICALLY SUSPICIOUS PALPABLE LUMP SHOULD BE BIOPSIED. Dictated by: Deejay Rees M.D. on 04/13/2023 at 16:03 Approved by: Deejay Rees M.D. on 04/13/2023 at 16:07 Dictated By: Deejay Rees M.D. Signed By: 04/13/23 1608 DD/ 1607 TD/TT: Client Representative:TBHRadiology, Radiologist, - 04/13/2023 [place] [address] Mammography Report Signed Patient: ROBLES YEN MR#: [id number] : 1985 Acct:[id number] Age/Sex: 38 / F ADM Date: 04/13/23 Loc: MAMMO Attending Dr: Kika Guaman NP Ordering Physician: Kika Guaman NP Results: Date of Service: 04/13/23 Follow Up: Procedure(s): MM tomosynthesis diagnostic BI Accession Number(s): [id number] cc: Kika Guaman NP Patient Name: ROBLES YEN MR#: [id number] : 1985 Exam Date: 04/13/2023 Ordering Doctor: [...] Cancers Aunt-maternal with breast cancer at age 50; Aunt-maternal with breast cancer at age 22; Uncle-maternal with prostate cancer at age 70. LOCATION: [facility] BREAST COMPOSITION: Scattered areas fibroglandular density. FINDINGS: DIAGNOSTIC CATEGORY 1--NEGATIVE. RIGHT BREAST: No significant suspicious finding on mammographic evaluation. Ultrasound evaluation demonstrates normal appearing fibroglandular tissue within the upper-outer quadrant or patient localizes the palpable lump. LEFT BREAST: No significant suspicious finding. RECOMMENDATIONS: CLINICAL EVALUATION. PLEASE NOTE: A NORMAL MAMMOGRAM DOES NOT EXCLUDE THE POSSIBILITY OF BREAST CANCER. A CLINICALLY SUSPICIOUS PALPABLE LUMP SHOULD BE BIOPSIED. Dictated by: Deejay Rees M.D. on 04/13/2023 at 16:03 Approved by: Deejay Rees M.D. on 04/13/2023 at 16:07 Dictated By: Deejay Rees M.D. Signed By: 04/13/23 1608 DD/ 1607 TD/TT: Client Representative: SWATHI Dunlap Panel InformationOrdered By: Radiologist Radiology on 39-43-6416TYMX [employer] Work Phone: No Panel Informationon 19-36-4641Tmqcixqhn Study observation (narrative)SWATHI MoralesUS Breast - right limitedon 39-79-8372[place], [place] [id number] Ultrasound Report Signed Patient: ROBLES YEN MR#: [id number] : 1985 Acct:[id number] Age/Sex: 38 / F ADM Date: 04/13/23 Loc: MAMMO Attending Dr: Kika Guaman NP Ordering Physician: Kika Guaman NP Date of Service: 04/13/23 Procedure(s): US breast RT limited Accession Number(s): [id number] cc: Kika Guaman NP Patient Name: ROBLES YEN MR#: [id number] : 1985 Exam Date: 04/13/2023 Ordering Doctor: [...] Cancers Aunt-maternal with breast cancer at age 50; Aunt-maternal with breast cancer at age 22; Uncle-maternal with prostate cancer at age 70. LOCATION: [facility] BREAST COMPOSITION: Scattered areas fibroglandular density. FINDINGS: DIAGNOSTIC CATEGORY 1--NEGATIVE. RIGHT BREAST: No significant suspicious finding on mammographic evaluation. Ultrasound evaluation demonstrates normal appearing fibroglandular tissue within the upper-outer quadrant or patient localizes the palpable lump. LEFT BREAST: No significant suspicious finding. RECOMMENDATIONS: CLINICAL EVALUATION. PLEASE NOTE: A NORMAL MAMMOGRAM DOES NOT EXCLUDE THE POSSIBILITY OF BREAST CANCER. A CLINICALLY SUSPICIOUS PALPABLE LUMP SHOULD BE BIOPSIED. Dictated by: Deejay Rees M.D. on 04/13/2023 at 16:03 Approved by: Deejay Rees M.D. on 04/13/2023 at 16:07 Dictated By: Deejay Rees M.D. Signed By: 04/13/23 1608 DD/ 1607 TD/TT: Client Representative:TBHRadiology, Radiologist, MD - 04/13/2023 [place] [address] Ultrasound Report Signed Patient: ROBLES YEN MR#: [id number] : 1985 Acct:[id number] Age/Sex: 38 / F ADM Date: 04/13/23 Loc: MAMMO Attending Dr: Kika Guaman NP Ordering Physician: Kika Guaman NP Date of Service: 04/13/23 Procedure(s): US breast RT limited Accession Number(s): [id number] cc: Kika Guaman NP Patient Name: ROBLES YEN MR#: [id number] : 1985 Exam Date: 04/13/2023 Ordering Doctor: [...] Cancers Aunt-maternal with breast cancer at age 50; Aunt-maternal with breast cancer at age 22; Uncle-maternal with prostate cancer at age 70. LOCATION: [facility] BREAST COMPOSITION: Scattered areas fibroglandular density. FINDINGS: DIAGNOSTIC CATEGORY 1--NEGATIVE. RIGHT BREAST: No significant suspicious finding on mammographic evaluation. Ultrasound evaluation demonstrates normal appearing fibroglandular tissue within the upper-outer quadrant or patient localizes the palpable lump. LEFT BREAST: No significant suspicious finding. RECOMMENDATIONS: CLINICAL EVALUATION. PLEASE NOTE: A NORMAL MAMMOGRAM DOES NOT EXCLUDE THE POSSIBILITY OF BREAST CANCER. A CLINICALLY SUSPICIOUS PALPABLE LUMP SHOULD BE BIOPSIED. Dictated by: Deejay Rees M.D. on 04/13/2023 at 16:03 Approved by: Deejay Rees M.D. on 04/13/2023 at 16:07 Dictated By: Deejay Rees M.D. Signed By: 04/13/23 1608 DD/ 1607 TD/TT: Client Representative: [facility] HealthcareLaboratory - Microbiology and Antimicrobial susceptibilityOrdered By: Barbara Zhu on 32-07-9197XPKE-CoV-2 (COVID-19) RNA GERALDINE+probe Ql (Unsp spec)[facility] CenterNo Panel InformationOrdered By: Barbara Zhu on 17-67-0437Lcjtc Strep (POC)[facility] CenterQuick Strep (POC)[facility] CenterIGP,APTIMA HPV,AGE GDLNon 03-29-2023 AGE GDLN ACOG TESTINGNote.NOMS HealthcareComment on above:TESTS RESULT FLAG UNITS REF RANGE LAB Clinician Provided Cytology Information Source.............Cervix;Endocervix No. of containers..01 ThinPrep Vial Age Rik PANDEY Orin... 3065 FLAG LEGEND: L-Low Normal,H-High Normal,LL-Alert Low,HH-Alert High <-Panic Low,>-Panic High,A-Abnormal,AA-Critical Abnormal Performed at: 01 =[address] [address] Verenice Minaya MD, HPV APTIMANegativeNegativeNOMS HealthcareComment on above:This nucleic acid amplification test detects fourteen high- risk HPV types (16,18,31,33,35,39,45,51,52,56,58,59,66,68) without differentiation. Performed at: =[address] [id number] Whiteprinting Machine Operator: Verenice Minaya MD, Phone: [phone] Performed at: [address] [id number] Whiteprinting Machine Operator: Verenice Minaya MD, Phone: [phone] IGP, APTIMA HPV, RFX 16/18,45Note.NOMS HealthcareComment on above:TESTS RESULT FLAG UNITS REF RANGE LAB DIAGNOSIS: 02 NEGATIVE FOR INTRAEPITHELIAL LESION OR MALIGNANCY. CELLULAR CHANGES ASSOCIATED WITH INFLAMMATION ARE PRESENT. Specimen adequacy: 02 Satisfactory for evaluation. No endocervical component is identified. Performed by: 02 Lori L Hathhorn, Felt Hat Mellowing Machine Operator (ASC) . 02 Note: Note 02 The [...] <-Panic Low,>-Panic High,A-Abnormal,AA-Critical Abnormal Performed at: [address] [address] Verenice Minaya MD, BROOM-ALONE CERVIX ENDOCERVIX CLINISYNCNOMercy Hospital St[facility] John'sMRI KNEE LT CONon [id number] KNEE [facility] CONEXAM: MRI KNEE LT CON REASON FOR EXAM: Pain of left [...] Electronically authenticated by: RONALD JOHN Date: 2022-06-01 13:03[facility] SouthCULTURE URINEon [id number] URINEIsolate 1 Escherichia coli 10,000 cfu/mL of ORGANISM 1 Escherichia coli ANTIBIOTIC M.I.C RX STATUS Ampicillin >=32 R F Ampicillin/Sulbactam >=32 R F Cefazolin 8 S F Ceftazidime <=1 S F Ceftriaxone <=1 S F Ertapenem <=0.5 S F Imipenem <=0.25 S F Amikacin <=2 S F Gentamicin >=16 R F Tobramycin 8 I F Ciprofloxacin <=0.25 S F Levofloxacin <=0.12 S F Nitrofurantoin <=16 S F Trimethoprim/Sulfamethoxazole <=20 S FNormalCleveland Clinic Akron General Lodi HospitalComment on above:Performed By: #### CVDTBH #### [facility] [address] [place] [address] Dr. Latanya Domínguez URINE PROFILEon 06-83-1260Jgtbsjoil Ql (U)NegativeNormal NEGATIVECleveland Clinic Akron General Lodi HospitalComment on above:Performed By: #### LEE DONAHUE #### [facility] [address] [place] [address] Dr. Latanya Persaud (U)CLEARNormalCLEARCleveland Clinic Akron General Lodi HospitalComment on above: Performed By: #### STEFANIA DONAHUERO #### [facility] [address] [place] [address] Dr. Latanya Garcia (U)BROWNAbnormalYELLOWCleveland Clinic Akron General Lodi HospitalComment on above:Performed By: #### STEFANIA DONAHUERO #### [facility] [address] [place] [address] Dr. Latanya Murray micrscopic examination will be performed if indicated. NormalCleveland Clinic Akron General Lodi HospitalComment on above:Performed By: #### GODFREY UMAMANDARO #### [facility] [address] [place] [address] Dr. Yilan ChangGlucose Ql (U)NegativeNormalNEGATIVECleveland Clinic Ak[facility] General Lodi HospitalComment on above:Performed By: #### ERUR, UMICRO #### [facility] [address] [place] [address] Dr. Latanya DonisHemoglobin Ql (U)LARGEAbnormalNEGATIVECleveland Clinic [facility] Hospital Comment on above:Performed By: #### ERUR, UMICRO #### [facility] [address] [place] [address] Dr. Latanya DonisKetones Ql (U)NegativeNormalNEGATIVECleveland Clinic Ak[facility] General Lodi HospitalComment on above:Performed By: #### ERUR, UMICRO #### [facility] [address] [place] [address] Dr. Latanya DonisLEUKOCYTESMODERATEAbnormalNEGATIVECleveland Clinic Ak[facility] General Lodi HospitalComment on above:Performed By: #### ERUR, UMICRO #### [facility] [address] [place] [address] Dr. Latanya DonisNitrite Ql (U)PositiveAbnormalNEGCincinnati Shriners Hospital Comment on above:Performed By: #### ERUR, UMICRO #### [facility] [address] [place] [address] Dr. Latanya DonispH (U)5.5 [pH]Normal5-9C[facility] HospitalComment on above: Performed By: #### ERUR, UMICRO #### [facility] [address] [place] [address] Dr. Latanya DonisProtein (U) [Mass/Vol]100 mg/dLAbnormalNEGATIVE/ TRACEThe [facility] HospitalComment on above:Performed By: #### ERUR, UMICRO #### [facility] [address] [place] [address] Dr. Latanya DonisSPEC GRAVITY1.453Kyphwd1.005-<=1.025The [facility] HospitalComment on above:Performed By: #### ERUR, UMICRO #### [facility] [address] [place] [address] Dr. Latanya DonisUR MICRO INDINDICATEDNoUniversity Hospitals Health SystemComment on above: Performed By: #### ARVIND DONAHUEICRO #### [facility] [address] [place] [address] Dr. Latanya Koch Qn (U)1.0 {Hanny'U}/dLNormal0.2 - 1.0The [facility] HospitalComment on above:Performed By: #### GODFREY UMAMANDARO #### [facility] [address] [place] [address] Dr. Latanya Cerda MICROSCOPIC ONLYon [id number]RBUD SEENCleveland Clinic [facility] L[facility] HospitalCombronson battle [facility] hospital on above:Performed By: #### STEFANIA DONAHUERO #### [facility] [address] [place] [address] Dr. Latanya Vega identified Cx Nom (U)INDICATEDPremier Health [facility] Hospital SouthCombronson battle creek hospital on above:Performed By: #### STEFANIA DONAHUERO #### [facility] [address] [place] [address] Dr. Latanya Chen SEENNormalNONE SEENCleveland Clinic Akron General Lodi HospitalCombronson battle creek hospital on above:Performed By: #### STEFANIA DONAHUERO #### [facility] [address] [place] [address] Dr. Latanya Yousif LM Nom (Urine sed)NONE SEENNormalNONE SEENCleveland Clinic Ak[facility] General Lodi HospitalCombronson battle [facility] hospital on above:Performed By: #### GODFREY UMICRO #### [facility] [address] [place] [address] Dr. Latanya Kaurthelial cells LM Ql (Urine sed)NONE SEENNormalNONE SEEN /RARE The [facility] HospitalCombronson battle creek hospital on above:Performed By: #### GODFREY UMICRO #### [facility] [address] [place] [address] Dr. Latanya Leone SEENNormalNONE SEENCleveland Clinic Ak[facility] General Lodi HospitalCombronson [facility] hospital on above:Performed By: #### STEFANIA DONAHUERO #### [facility] [address] [place] [address] Dr. Latanya Aragon (U) [#/Vol]/uLAbnormal0-2The [facility] HospitalComment on above:Performed By: #### LEE DONAHUE #### [facility] [address] [address] [address] Latanya DonisWBC5-10AbnormalNONE SEENThe [facility] HospitalComment on above: Performed By: #### LEE DONAHUE #### [facility] [address] [address] [address] Latanya DonisCT FACIAL BONES W CONon [id number] FACIAL BONES W CON EXAMINATION: CT FACIAL [...] Electronically authenticated by: DEEJAY REES Date: 2021-12-22 22:26[facility] AUTO DIFFon [id number] #0.0 103/ulNormal0.0-0.1The [facility] HospitalComment on above:Performed By: #### CBC #### [facility] [address] [address] [address] Latanya DonisBasophils/100 WBC (Bld)0.3 %Normal0.2-2.0[facility] Comment on above:Performed By: #### CBC #### [facility] [address] [place] [address] Dr. Latanya Peterson #0.1 103/ulNormal0.0-0.7The [facility] HospitalComment on above: Performed By: #### CBC #### [facility] [address] [place] [address] Dr. Latanya Stevensonosinophils/100 WBC (Bld)0.6 %Critically low0.9-7.0The [facility] HospitalComment on above:Performed By: #### CBC #### [facility] [address] [place] [address] Dr. Latanya Stevensonrythrocyte distribution width (RBC) [Ratio]12.2 %Pifvjm90.0-15.0 The [facility] HospitalComment on above:Performed By: #### CBC #### [facility] [address] [place] [address] Dr. Latanya DonisHematocrit (Bld) [Volume fraction]37.1 %Euhcrj77.0-48.0The [facility] HospitalComment on above:Performed By: #### CBC #### [facility] [address] [place] [address] Dr. Latanya DonisHemoglobin (Bld) [Mass/Vol]12.5 g/pDNrjfud52.0-16.0The [facility] HospitalComment on above:Performed By: #### CBC #### [facility] [address] [place] [address] Dr. Latanya Yanes #0.03 10e3/ulNormal0.00-0.03The [facility] HospitalComment on above:Performed By: #### CBC #### [facility] [address] [place] [address] Dr. Latanya Yanes %0.3 %Normal0.0-0.5The [facility] HospitalComment on above: Performed By: #### CBC #### [facility] [address] [address] [address] Latanya Sloan #1.6 103/ulNormal1.2-3.8The [facility] HospitalComment on above:Performed By: #### CBC #### [facility] [address] [address] [address] Latanya Simsmphocytes/100 WBC (Bld)17.1 %Critically low20.5-60.0The [facility] HospitalComment on above:Performed By: #### CBC #### [facility] [address] [address] [address] Latanya Dang DIFF REQNONormalThe [facility] HospitalComment on above: Performed By: #### CBC #### [facility] [address] [place] [address] Dr. Latanya Carroll (RBC) [Entitic mass]29.3 udUgrekp99.7-34.0The [facility] HospitalComment on above:Performed By: #### CBC #### [facility] [address] [place] [address] Dr. Latanya Carroll (RBC) [Mass/Vol]33.7 g/dZPzulwk35.9-35.2The [facility] HospitalComment on above:Performed By: #### CBC #### [facility] [address] [place] [address] Dr. Latanya Carroll (RBC) [Entitic vol]86.9 gIUfeiyn89.0-99.0The [facility] HospitalComment on above:Performed By: #### CBC #### [facility] [address] [place] [address] Dr. Latanya Pal #0.8 103/ulNormal0.3-0.8The [facility] HospitalComment on above:Performed By: #### CBC #### [facility] [address] [place] [address] Dr. Latanya Blevinsocytes/100 WBC (Bld)8.2 %Normal1.7-12.0[facility] Comment on above:Performed By: #### CBC #### [facility] [address] [place] [address] Dr. Latanya Lazar #7.0 103/ulCritically high1.4-6.5[facility] Comment on above:Performed By: #### CBC #### [facility] [address] [place] [address] Dr. Latanya Garciautrophils/100 WBC (Bld)73.5 %Kbrasp40.0-75.0The [facility] HospitalComment on above:Performed By: #### CBC #### [facility] [address] [place] [address] Dr. Latanya Colonlet mean volume (Bld) [Entitic vol]11.4 fLNormal9.5-13.5The [facility] HospitalComment on above:Performed By: #### CBC #### [facility] [address] [place] [address] Dr. Latanya DonisPLT266 103/ecGvzxza721-979Iji [facility] HospitalComment on above: Performed By: #### CBC #### [facility] [address] [place] [address] Dr. Latanya DonisRBC4.27 106/ulNormal4.20-5.40The [facility] HospitalComment on above:Performed By: #### CBC #### [facility] [address] [place] [address] Dr. Latanya DonisWBC9.5 103/ulNormal4.0-11.0The [facility] HospitalComment on above: Performed By: #### CBC #### [facility] [address] [place] [address] Dr. Latanya Baca BLOODon 69-10-3778Hyxwwgnjuil examination of blood, cultureCulture Observations: NO GROWTH AT 5 DAYS.NormalThe [facility] HospitalComment on above:Performed By: #### CVDTBH #### [facility] [address] [place] [address] Dr. Latanya DonisMicroscopic examination of blood, cultureCulture Observations: NO GROWTH AT 5 DAYS.NormalThe [facility] HospitalComment on above:Performed By: #### CVDTBH #### [facility] [address] [place] [address] Dr. Latanya DonisPROF CHEM 8 (BAS METB)on 78-81-7110Aetqn gap [Moles/Vol]12.1 mmol/LNormalThe [facility] HospitalComment on above:Performed By: #### BMP #### [facility] [address] [place] [address] Dr. Latanya DonisCalcium [Mass/Vol]8.9 mg/dLNormal8.5-10.1[facility] Comment on above:Performed By: #### BMP #### [facility] [address] [place] [address] Dr. Latanya DonisChloride [Moles/Vol]107 mmol/RQssmid70-489Ekr [facility] Comment on above:Performed By: #### BMP #### [facility] [address] [place] [address] Dr. Latanya DonisCO2 [Moles/Vol]25.3 mmol/RTwoacp38.0-32.0[facility] Comment on above:Performed By: #### BMP #### [facility] [address] [place] [address] Dr. Latanya DonisCreatinine [Mass/Vol]0.99 mg/dLNormal0.55-1.02The [facility] HospitalComment on above:Performed By: #### BMP #### [facility] [address] [place] [address] Dr. Latanya StevensonGFR-AF CHILEAN>60Normal>=60The [facility] HospitalComment on above:Performed By: #### BMP #### [facility] [address] [place] [address] Dr. Latanya StevensonGFR-NON AF CHILEAN>60Normal>=60The [facility] HospitalComment on above:Performed By: #### BMP #### [facility] [address] [place] [address] Dr. Latanya DonisGlucose [Mass/Vol]94 mg/uKRkhkvz65-817Gqs [facility] Comment on above:Performed By: #### BMP #### [facility] [address] [address] [address] Latanya DonisPotassium [Moles/Vol]3.4 mmol/LCritically low3.5-5.1The [facility] HospitalComment on above:Performed By: #### BMP #### [facility] [address] [address] [address] Latanya DonisSodium [Moles/Vol]141 mmol/YWfazhy718-122Hqs [facility] Comment on above:Performed By: #### BMP #### [facility] [address] [place] [address] Dr. Latanya DonisUrea nitrogen [Mass/Vol]11.0 mg/dLNormal7.0-18.0The [facility] HospitalComment on above:Performed By: #### BMP #### [facility] [address] [place] [address] Dr. Latanya DonisUrea nitrogen/Creatinine [Mass ratio]11.1 mg/mgNormalThe [facility] HospitalComment on above:Performed By: #### BMP #### [facility] [address] [place] [address] Dr. Latanya DonisCHLAMYDIA/GONOCOCCUS GERALDINE (SWAB/URINE/PAPon 62-61-4407Ypcbckqkm trachomatis, NAANegativeNormalNegativeThe [facility] HospitalComment on above: Performed By: #### CVDTBH #### [facility] [address] [place] [address] Dr. Latanya DonisNeisseria gonorrhoeae, NAANegativeNormalNegativeThe [facility] HospitalComment on above:Performed By: #### CVDTBH #### [facility] [address] [place] [address] Dr. Latanya SorensonTIS PANEL, ACUTEon 75-39-0456XAhZr ScreenNegativeNormal NegativeThe [facility] HospitalComment on above:Performed By: #### HEPACUT #### [facility] [address] [place] [address] Dr. Latanya DonisHCV AB<0.1Ffuiip8.0-0.9The [facility] Hospitalment on above: Performed By: #### HEPACUT #### [facility] [address] [place] [address] Dr. Latanya Guajardo A Ab, IgMNegativeNormalNegativeThe [facility] HospitalComment on above:Performed By: #### HEPACUT #### [facility] [address] [place] [address] Dr. Latanya Guajardo B Core Ab, IgMNegativeNormalNegativeC[facility] Clinic [facility] Comment on above:Performed By: #### HEPACUT #### [facility] [address] [place] [address] Dr. Latanya DonisInterpretation:CommentNormalThe [facility] HospitalComment on above:Result Comment: Negative Not infected with HCV, unless recent infection is suspected or other evidence exists to indicate HCV infection.Performed By: #### HEPACUT #### [facility] [address] [place] [address] Dr. Latanya DonisHIChintan 1 AND 2 WITH REFLEXon 41-72-6567SYJ Screen 4th Generation wRfxNon-ReactiveNormalNon ReactiveThe [facility] HospitalCombronson battle [facility] hospital on above:Result Comment: HIV Negative HIV-1/HIV-2 antibodies and HIV-1 p24 antigen were NOT detected. There is no laboratory evidence of HIV infection.Performed By: #### HIV12 #### [facility] [address] [place] [address] Dr. Latanya DonisRPR QUANTon 06-20-8735Nqnzb Plasma Reagin, QuantNon-Reactive NormalNonRea<1:1The [facility] on above:Result Comment: Please Note: This test does not meet current guidelines for screening and diagnosis of syphilis. This test is intended for following treatment response in patients being treated for syphilis infection. To screen for syphilis infection, a reflex cascade that includes both RPR and a treponema-specific assay should be utilized, such as Treponema pallidum (Syphilis) Screening Bivalve (667531) or Rapid Plasma Reagin (RPR) Test With Reflex to Quantitative RPR and Confirmatory Treponema pallidum Antibodies (683968).Performed By: #### CVDTBH #### [facility] [address] [address] [address] Latanya DonisVAGINITIS/VAGINOSIS DNA PROBEon 87-95-3415Nlgqdtj speciesNegative NormalNegativeCleveland Clinic [facility] HospitalComment on above:Performed By: #### VAGINT #### [facility] [address] [place] [address] Dr. Latanya Bowmandnerella vaginalisNegativeNormalNegativeC[facility] Clinic [facility] Comment on above:Performed By: #### VAGINT #### [facility] [address] [place] [address] Dr. Latanya DonisTrichomonas vaginalisNegativeNormalNegativeC[facility] Comment on above:Performed By: #### VAGINT #### [facility] [address] [place] [address] Dr. Latanya DonisCovid-19 PCR (CVDTB)on 30-48-9891GMGE-CoV-2 (COVID-19) RNA GERALDINE+probe Ql (Unsp spec)DetectedCritically abnormalNOT DETECTEDThe [facility] HospitalComment on above:Result Comment: This test is not yet approved or cleared by the [place] FDA. When there are no FDA-approved or cleared tests available, and other criteria are met, FDA can make tests available under an emergency access mechanism called an Emergency Use Authorization (EUA). The EUA for this test is supported by the [employer] [facility] [employer] and Human Service's declaration that circumstances exist to justify the emergency use of in vitro diagnostics for the detection and/or diagnosis of the virusthat causes COVID-19. This EUA will remain in effect for the duration of the COVID-19 declaration ju stifying emergency of IVDs, unless it is terminated or revoked by the FDA (after which the test mayno longer be used).Performed By: #### CVDTBH #### [facility] [address] [place] [address] Dr. Latanya DonisINSULINon 52-85-0418Sjrynrm8.9 uIU/mLNormal2.6-24.9[facility] HospitalComment on above:Performed By: #### INSULIN #### [facility] [address] [address] [address] Latanya DonisFREE T4on 19-03-3552Cqqb T4 [Mass/Vol]0.79 ng/dLNormal0.76-1.46 [facility] HospitalComment on above:Performed By: #### CVDTBH #### [facility] [address] [address] [address] Latanya DonisGLYCOHEMOGLOBIN A1Con 79-63-8403FGQ RECOMMENDATIONSEE BELOWNormal The [facility] HospitalCombronson battle [facility] on above:Result Comment: ADA RECOMMENDED LIMIT 4.0 - 6.0 ADA THERAPEUTIC TARGET < 7.0 ACTION SUGGESTED > 7.0Performed By: #### A1C #### [facility] [address] [place] [address] Dr. Latanya DonisGlucose [Mass/Vol]91 mg/dLNormalThe [facility] HospitalComment on above:Performed By: #### A1C #### [facility] [address] [place] [address] Dr. Latanya DonisHbA1c (Bld) [Mass fraction]4.8 %Normal4.5-6.2The [facility] HospitalComment on above:Performed By: #### A1C #### [facility] [address] [place] [address] Dr. Latanya DonisPROF CHEM 8 (BAS METB)on 57-62-0873Hfgxz gap [Moles/Vol]10.0 mmol/LNormalCleveland Clinic [facility] HospitalComment on above:Performed By: #### CVDTBH #### [facility] [address] [place] [address] Dr. Latanya DonisCalcium [Mass/Vol]9.8 mg/dLNormal8.5-10.1[facility] Comment on above:Performed By: #### CVDTBH #### [facility] [address] [place] [address] Dr. Latanya DonisChloride [Moles/Vol]103 mmol/REfhzxl16-893GnbCleveland Clinic [facility] Comment on above:Performed By: #### CVDTBH #### [facility] [address] [address] [address] Latanya DonisCO2 [Moles/Vol]30.4 mmol/BWhvrsy22.0-32.0The [facility] Comment on above:Performed By: #### CVDTBH #### [facility] [address] [address] [address] Latanya DonisCreatinine [Mass/Vol]0.92 mg/dLNormal0.55-1.02[facility] HospitalComment on above:Performed By: #### CVDTBH #### [facility] [address] [address] [address] Latanya StevensonGFR-AF CHILEAN>60Normal>=60The [facility] HospitalComment on above:Performed By: #### CVDTBH #### [facility] [address] [address] [address] Latanya StevensonGFR-NON AF CHILEAN>60Normal>=60The [facility] HospitalComment on above:Performed By: #### CVDTBH #### [facility] [address] [address] [address] Latanya DonisGlucose [Mass/Vol]93 mg/xXQojmll02-318CmpCleveland Clinic [facility] Comment on above:Performed By: #### CVDTBH #### [facility] [address] [address] [address] Latanya DonisPotassium [Moles/Vol]4.4 mmol/LNormal3.5-5.1[facility] Comment on above:Performed By: #### CVDTBH #### [facility] [address] [address] [address] Latanya DonisSodium [Moles/Vol]139 mmol/IQcuqla087-369AddCleveland Clinic [facility] Comment on above:Performed By: #### CVDTBH #### [facility] [address] [address] [address] Latanya DonisUrea nitrogen [Mass/Vol]11.0 mg/dLNormal7.0-18.0The [facility] HospitalComment on above:Performed By: #### CVDTBH #### [facility] [address] [address] [address] Latanya DonisUrea nitrogen/Creatinine [Mass ratio]12.0 mg/mgNormalThe [facility] HospitalComment on above:Performed By: #### CVDTBH #### [facility] [address] [address] [address] Latanya Green 27-66-0475NNY0.496 uIU/mLNormal0.358-3.740The [facility] HospitalComment on above:Performed By: #### CVDTBH #### [facility] [address] [address] [address] Latanya Sutton Quick Testingon 60-92-0997ZfqviuEwcjewhcGtncr ParasitX Other COGoodocD Quick Testingon 25-69-4800XyhpebKwxzlfrgUoliyBalconyTV Other Chlamydia/GC DNA, Uron 46-32-6839Iyrozcfzg Probe, Ur NegativeNormalNEGMercy Lawrence+[facility]orial HospitalCombronson [facility] on above:Result Comment: CHLAMYDIA TRACHOMATIS DNA not detected by nucleic acid [...] positive results by an alternative nucleic acid target.Performed By: #### UCGP #### [facility] [address] [place] [address] Whiteprinting Machine Operator: Aníbal Ryderhea Probe, UrNegativeNormalNEGMercy Saint [facility] on above:Result Comment: NEISSERIA GONORRHOEAE DNA not detected by nucleic acid [...] positive results by an alternative nucleic acid target.Performed By: #### UCGP #### [address] [address] Whiteprinting Machine Operator: Yordy Ryder,Urineon [id number],UrineSpecimen Description .CLEAN CATCH URINE Special Requests NOT REPORTED Culture NO SIGNIFICANT GROWTH Report Status FINAL 01/04/2020NoOhioHealth Mansfield HospitalComment on above: Performed By: #### PPPVP #### [address] [address] Whiteprinting Machine Operator: Ezio Calvillo MDHemoglobin A1Con [id number] (Bld) [Mass fraction]4.8 %Normal4.0-6.0[facility]rbana HospitalComment on above:Performed By: #### AHCV GLYHGB, HIVCMB #### [address] [address] Whiteprinting Machine Operator: Ezio Calvillo MDHbA1c (Bld) [Mass fraction]91 mg/dLOhioHealth Shelby HospitalCombronson battle creek hospital on above:Result Comment: The ADA and AACC recommend providing the estimated average glucose result to permit better patient understanding of their HBA1c result.Performed By: #### AHCV, GLYHGB, HIVCMB #### [address] [address] Whiteprinting Machine Operator: Ezio Calvillo MDHIV Ag/Cayden 32-27-2500YFE Ag/AbNONREACTIVENormal [facility] on above:Result Comment: No laboratory evidence of HIV infection. If acute HIV infection is suspected, consider testing for HIV-1 RNA.Performed By: #### AHCV, GLYHGB, HIVCMB #### [address] [address] Whiteprinting Machine Operator: Bunny Ryder C Abon [id number] C AbNONREACTIVENormalNR [facility] [place] HospitalComment on above:Result Comment: The hepatitis C procedure used in [...] is recommended by ordering HCV RNA by PCR.Performed By: #### AHCV, GLYHGB, HIVCMB #### [facility] TelemetryWeb [address] [place] [address] Whiteprinting Machine Operator: DALI RyderPilgrim Psychiatric Center 01-03-2020T.pallidum Ab ScreenNONRELouis Stokes Cleveland VA Medical CenterCombronson battle creek hospital on above:Result Comment: T. pallidum antibodies are not detected. There is no serological evidence of infection with T. pallidum (early primary syphilis cannot be excluded). Retest in 2-4 weeks if syphilis is clinically suspect.Performed By: #### PRENAT #### [address] [address] Whiteprinting Machine Operator: Ezio Calvillo MD [address] StreetNeisha [place] [address] Whiteprinting Machine Operator: Bunny Licea Surf AgNONUniversity Hospitals Samaritan Medical CenterCombronson battle creek hospital on above:Performed By: #### PRENAT #### [address] [address] Whiteprinting Machine Operator: Ezio Calvillo MD [address] [place] [address] Whiteprinting Machine Operator: Kulwinder Licea Ab, IgG68.2 IU/mLNACMC Healthcare System GlenbeighCombronson battle creek hospital on above:Result Comment: REFERENCE RANGE: <5.0 NON-REACTIVE (non-immune) 5.0 TO 9.9 EQUIVOCAL >=10.0 REACTIVE (immune)Performed By: #### PRENAT #### [address] [address] Whiteprinting Machine Operator: Ezio Calvillo MD [address] [place] [address] Whiteprinting Machine Operator: MARY Licea Screenon [id number] Ag/AbNONREACTIVE NONREACTIVEKenmore Hospital on above:No laboratory evidence of HIV infection. If acute HIV infection is suspected, consider testing for HIV-1 RNA. Hepatitis C Antibodyon [id number] C AbNONREACTIVENONREACTIVEMifflintown, KYCombronson battle creek hospital on above: The hepatitis C procedure used [...] ordering HCV RNA by PCR. PROFILE Ion [id number] (Bld) [#/Vol]0.03 10*3/[facility], KYBasophils/100 WBC (Bld)0 %0 - 2 %[facility], DCDifferential TypeNOT REPORTEDSouthwest General Health Center, KYEosinophils (Bld) [#/Vol]0.12 10*3/[facility], DCEosinophils/100 WBC (Bld)2 %1 - 4 %[place], KYErythrocyte distribution width (RBC) [Ratio]12.4 %11.8 - 14.4 %[place], [place] Hematocrit (Bld) [Volume fraction]41.5 %36.3 - 47.1 %[place], [place] Hemoglobin (Bld) [Mass/Vol]13.5 g/dL11.9 - 15.1 g/dLMifflint[place], [place] Hepatitis B Surface AgNONREACTIVENONREACTIVESouthwest General Health Center, DCImmature granulocytes (Bld) [#/Vol]0 %0[facility], DCImmature granulocytes (Bld) [#/Vol]10*3/[facility], KYLymphocytes (Bld) [#/Vol]2.14 10*3/[facility], KYLymphocytes/100 WBC (Bld)28 %24 - 43 %[place], KYMCH (RBC) [Entitic mass]28.9 pg25.2 - 33.5 pgMifflintown, KYMCHC (RBC) [Mass/Vol]32.5 g/dL28.4 - 34.8 g/dLMifflintown, KYMCV (RBC) [Entitic vol] 88.9 fL82.6 - 102.9 fLMifflintown, KYMonocytes (Bld) [#/Vol]0.63 10*3/uL [place], KYMonocytes/100 WBC (Bld)8 %3 - 12 %[place], [place] Platelet mean volume (Bld) [Entitic vol]12.3 fL8.1 - 13.5 fLMifflintown, [place] Platelets (Bld) [#/Vol]NOT REPORTEDMifflintown, KYPlatelets (Bld) [#/Vol] 213 10*3/uLMifflintown, KYRBC (Bld) [#/Vol]4.67 10*6/uL3.95 - 5.11 m/uL [facility] morphology finding Nom (Bld)NOT REPORTEDMifflintown, KYRubella virus IgG Ql (S)68.2IU/mLMifflintown, KYCombronson battle creek hospital on above: REFERENCE RANGE: <5.0 NON-REACTIVE (non-immune) 5.0 TO 9.9 EQUIVOCAL >=10.0 REACTIVE (immune) Segmented neutrophils/100 WBC (Bld)62 %36 - 65 %[place], KYSegs Absolute4.69[place], KYT. pallidum, IgGNONREACTIVENONREACTIVEMifflintown, KYCombronson battle creek hospital on above: T. pallidum antibodies are not detected. There is no serological evidence of infection with T. pallidum (early primary syphilis cannot be excluded). Retest in 2-4 weeks if syphilis is clinically suspect. WBC (Bld) [#/Vol]7.6 10*3/uLMifflintown, KYWBC (Bld) [#/Vol]0.0 10*3/uL0.0 per 100 WBCMercy Health- [place], KYWBC MorphologyNOT REPORTEDSouthwest General Health Center, [place] TYPE AND SCREENon 47-37-4349QYW/RhNegativeSouthwest General Health Center, DCPrenatal Profileon 43-24-9158Ewh. Basophil0.03 k/uLNormal0.00-0.20[facility] Comment on above:Performed By: #### PRENAT #### [place] [address] [place] [address] Whiteprinting Machine Operator: Ezio Calvillo MD [address] [place] [address] Whiteprinting Machine Operator: Helene Licea.Imm.Granulocyte<0.45Nkpgkn8.00-0.30Mer[facility]rbana HospitalComment on above:Performed By: #### PRENAT #### [address] [address] Whiteprinting Machine Operator: Ezio Calvillo MD [address] [place] [address] Whiteprinting Machine Operator: Helene Licea.Neutrophil (Seg)4.69 k/uLNormal1.50-8.10Mer[facility]rbana HospitalComment on above:Performed By: #### PRENAT #### [address] [address] Whiteprinting Machine Operator: Ezio Calvillo MD [address] [place] [address] Whiteprinting Machine Operator: Chase Glez MDBasophils/100 WBC (Bld)0 %Normal0-2MUniversity Hospitals Elyria Medical CenterComment on above:Performed By: #### PRENAT #### [address] [address] Whiteprinting Machine Operator: Ezio Calvillo MD [address] [place] [address] Whiteprinting Machine Operator: Chase Glez MDEosinophils (Bld) [#/Vol]0.12 10*3/uLNormal 0.00-0.44[facility] HospitalComment on above:Performed By: #### PRENAT #### [address] [address] Whiteprinting Machine Operator: Ezio Calvillo MD [address] [place] [phone] Whiteprinting Machine Operator: Chase Glez MDEosinophils/100 WBC (Bld)2 %Normal1-4[facility] HospitalComment on above:Performed By: #### PRENAT #### [address] [address] Whiteprinting Machine Operator: Ezio Calvillo MD [address] [place] [phone] Whiteprinting Machine Operator: Chase Glez MDErythrocyte distribution width (RBC) [Ratio]12.4 %Ihyodc09.8-14.4[facility] HospitalComment on above:Performed By: #### PRENAT #### [address] [address] Whiteprinting Machine Operator: Ezio Calvillo MD [address] [place] [address] Whiteprinting Machine Operator: Chase Glez MDHematocrit (Bld) [Volume fraction]41.5 %Normal 36.3-47.1MUniversity Hospitals Elyria Medical Center HospitalComment on above:Performed By: #### PRENAT #### [address] [address] Whiteprinting Machine Operator: Ezio Calvillo MD [address] [place] [address] Whiteprinting Machine Operator: Chase Glez MDHemoglobin (Bld) [Mass/Vol]13.5 g/dLNormal 11.9-15.1MUniversity Hospitals Elyria Medical Center HospitalComment on above:Performed By: #### PRENAT #### [address] [address] Whiteprinting Machine Operator: Ezio Calvillo MD [address] [place] [phone] Whiteprinting Machine Operator: Chase Glez MDImmature granulocytes (Bld) [#/Vol]0 %Normal0 [facility]ana HospitalComment on above:Performed By: #### PRENAT #### [facility] [address] [place] [address] Whiteprinting Machine Operator: Ezio Calvillo MD [address] [place] [phone] Whiteprinting Machine Operator: Chase Glez MDLymphocytes (Bld) [#/Vol]2.14 10*3/uLNormal 1.10-3.70[facility] HospitalComment on above:Performed By: #### PRENAT #### [facility] [address] [place] [address] Whiteprinting Machine Operator: Ezio Calvillo MD [address] [place] [id number] Whiteprinting Machine Operator: Chase Glez MDLymphocytes/100 WBC (Bld)28 %Rbqgfs83-22AtoayMercy Health Urbana HospitalComment on above:Performed By: #### PRENAT #### [facility] [address] [place] [address] Whiteprinting Machine Operator: Ezio Calvillo MD [address] [place] [facility] Whiteprinting Machine Operator: ELENA Licea (RBC) [Entitic mass]28.9 nwUxngxr26.2-33.5 [facility] HospitalComment on above:Performed By: #### PRENAT #### [facility] [address] [place] [address] Whiteprinting Machine Operator: Ezio Calvillo MD [address] [place] [phone] Whiteprinting Machine Operator: ELENA LiceaC (RBC) [Mass/Vol]32.5 g/jUBjwlqu40.4-34.8 [facility] HospitalComment on above:Performed By: #### PRENAT #### [address] [place] [address] Whiteprinting Machine Operator: Ezio Calvillo MD [address] [place] 9498583 Whiteprinting Machine Operator: MARY LiceaCV (RBC) [Entitic vol]88.9 bAMoebal71.6-102.9 [facility] HospitalComment on above:Performed By: #### PRENAT #### [address] [address] Whiteprinting Machine Operator: Ezio Calvillo MD [address] [place] [address] Whiteprinting Machine Operator: MARY Liceaonocytes (Bld) [#/Vol]0.63 10*3/uLNormal 0.10-1.20[facility] HospitalComment on above:Performed By: #### PRENAT #### [address] [address] Whiteprinting Machine Operator: Ezio Calvillo MD [address] [place] [phone] Whiteprinting Machine Operator: MARY Liceaonocytes/100 WBC (Bld)8 %Normal3-12[facility] HospitalComment on above:Performed By: #### PRENAT #### [address] [address] Whiteprinting Machine Operator: Ezio Calvillo MD [address] [place] 9498583 Whiteprinting Machine Operator: Chase Glez MDNeutrophil (Seg)62 %Ctprwp81-95Uirdg Tiffin HospitalComment on above:Performed By: #### PRENAT #### [address] [address] Whiteprinting Machine Operator: Ezio Calvillo MD [address] [place] [address] Whiteprinting Machine Operator: GÉNESIS Licea Automated0.0 per 100 WBCNormal0.0[facility] HospitalComment on above:Performed By: #### PRENAT #### [facility] [address] [place] [address] Whiteprinting Machine Operator: Ezio Calvillo MD [address] [place] [address]83 Whiteprinting Machine Operator: Jesus Licea mean volume (Bld) [Entitic vol]12.3 fL Normal8.1-13.5[facility] HospitalComment on above:Performed By: #### PRENAT #### [address] [address] Whiteprinting Machine Operator: Ezio Calvillo MD [address] [place] [address] Whiteprinting Machine Operator: Allen Licea (Bld) [#/Vol]213 10*3/yHQzqxpj589-722 [facility] HospitalComment on above:Performed By: #### PRENAT #### [facility] [address] [place] [address] Whiteprinting Machine Operator: Ezio Calvillo MD [address] [place] [address] Whiteprinting Machine Operator: HEIDE Licea (Bld) [#/Vol]4.67 10*6/uLNormal3.95-5.11[facility] HospitalComment on above:Performed By: #### PRENAT #### [address] [address] Whiteprinting Machine Operator: Ezio Calvillo MD [address] [place] [address] Whiteprinting Machine Operator: Chase Newton, MDWBC (Bld) [#/Vol]7.6 10*3/uLNormal3.5-11.3[facility] [place] HospitalComment on above:Performed By: #### PRENAT #### [facility] [address] [place] [address] Whiteprinting Machine Operator: Ezio Calvillo MD [address] [place] [address] Whiteprinting Machine Operator: Chidi Licea PerformedNOT REPORTEDNormalMercy [place] HospitalComment on above:Performed By: #### PRENAT #### [facility] [address] [place] [address] Whiteprinting Machine Operator: Ezio Calvillo MD [address] [place] [address] Whiteprinting Machine Operator: Ronna Licealets (Bld) [#/Vol]NOT REPORTEDNormalMercy [place] HospitalComment on above:Performed By: #### PRENAT #### [facility] [address] [place] [address] Whiteprinting Machine Operator: Ezio Calvillo MD [address] [place] [address] Whiteprinting Machine Operator: HEIDE Licea morphology finding Nom (Bld)NOT REPORTED NormalCleveland Clinic Fairview Hospital HospitalComment on above:Performed By: #### PRENAT #### [facility] [address] [place] [address] Whiteprinting Machine Operator: Ezio Calvillo MD [address] [place] [address] Whiteprinting Machine Operator: YANIRA Licea MorphologyNOT REPORTEDNormalCleveland Clinic [facility] Hospital HospitalComment on above:Performed By: #### PRENAT #### [facility] [address] [place] [address] Whiteprinting Machine Operator: Ezio Calvillo MD [address] [place] [address] Whiteprinting Machine Operator: DALI Licearenatal Type + Scrnon 98-94-2098Nucuroby Type + ScrnNegativeNormalMercy [place] HospitalComment on above:Performed By: #### PRTYS #### [facility] [address] [place] [address] Whiteprinting Machine Operator: Chase Glez MDToxicology Romie, Urineon 01-02-2020 Amphetamine(s),UrNegativeNormalNEGMercy [place] HospitalComment on above: Performed By: #### CPDAU #### [address] [place] [address] Whiteprinting Machine Operator: Chase Glez MDBarbiturate(s),UrNegativeNormalNEGMercy [place] HospitalComment on above:Performed By: #### CPDAU #### [address] [place], [place] [address] Whiteprinting Machine Operator: Chase Glez MDBenzodiazepine(s)NegativeNormalNEGMercy [place] HospitalComment on above:Performed By: #### CPDAU #### [address] [place], [place] [address] Whiteprinting Machine Operator: Chase Glez MDBuprenorphrine, UrNegativeNormalNEGMercy [place] HospitalComment on above:Performed By: #### CPDAU #### [facility] [address] [place], [place] [address] Whiteprinting Machine Operator: AMNA Liceaannabinoid(s),UrNegativeNormalNEGMercy [place] HospitalComment on above:Performed By: #### CPDAU #### [address] [place], [facility] Whiteprinting Machine Operator: AMNA Liceaocaine MetaboliteNegativeNormalNEGMercy [place] HospitalComment on above:Performed By: #### CPDAU #### [address] [place], [facility]83 Whiteprinting Machine Operator: MARY Liceaethadone Ql (U)NegativeNormalNEGMercy [place] HospitalComment on above:Performed By: #### CPDAU #### [facility] [address] [place] [address] Whiteprinting Machine Operator: Chase Glez MDMethamphetamine, UrNegativeNormalNEGMercy [place] HospitalComment on above:Performed By: #### CPDAU #### [facility] [address] [place] [address] Whiteprinting Machine Operator: Chase Glez MDOpiate(s), UrNegativeNormalNEGMercy [place] HospitalComment on above:Performed By: #### CPDAU #### [address] [place], [facility]83 Whiteprinting Machine Operator: Chase Glez MDOxycodone, UrineNegativeNormalNEGMercy [place] HospitalComment on above:Performed By: #### CPDAU #### [address] [place] [address] Whiteprinting Machine Operator: DALI Liceahencyclidine, UrNegativeNormalNEGMercy [place] HospitalComment on above:Performed By: #### CPDAU #### [address] [place], [facility]83 Whiteprinting Machine Operator: DALI Licearopoxyphene,UrineNegativeNormalNEGMercy [place] HospitalComment on above:Performed By: #### CPDAU #### [facility] [address] [place] [address] Whiteprinting Machine Operator: Chase Glez MDTricyclic antidepressants Screen Ql (U)Negative NormalNEGMercy [place] HospitalComment on above:Result Comment: Drug screen results are to be used for medical purposes only. All positive results are unconfirmed. Testing for employment or legal uses should be sent to a reference laboratory for confirmation.Performed By: #### CPDAU #### [facility] [address] [place], [place] [address]83 Whiteprinting Machine Operator: Chase Glez MDInterpretive InfoNOT REPORTEDNormalMercy [place] HospitalComment on above:Performed By: #### CPDAU #### [facility] [address] [place], [place] [address]83 Whiteprinting Machine Operator: Chase Glez, MDMDMA, UrineNOT REPORTEDNormalNEGMercy [place] HospitalComment on above:Performed By: #### CPDAU #### [facility] [address] [place], [place] [id number] Whiteprinting Machine Operator: Chase Glez MDUrine Drug Screen, [facility] Amphetamine Screen, UrNegativeNEGATIVEMercy Health- [place], KYBarbiturate Screen, Ur NegativeNEGATIVEMercy Health- [place], KYBenzodiazepine Screen, UrineNegativeNEGATIVE [facility]- [place], KYBuprenorphine UrineNegativeNEGATIVEMercy Health- [place], [place] Cannabinoid Scrn, UrNegativeNEGATIVEMercy Health- [place], KYCocaine Metabolite, UrineNegativeNEGATIVEMercy Health- [place], KYMDMA, UrineNOT REPORTEDNEGATIVEMercy Health- [place], KYMethadone Screen, UrineNegativeNEGATIVEMercy Health- [place], [place] Methamphetamine, UrineNegativeNEGATIVEMercy Health- [place], KYOpiates, UrineNegative NEGATIVEMercy Health- [place], KYOxycodone Screen, UrNegativeNEGATIVEMercy Health- [place], KYPhencyclidine, UrineNegativeNEGATIVEMercy Health- [place], KYPropoxyphene, UrineNegativeNEGATIVEMercy Health- [place], KYTest InformationNOT REPORTEDMercy Health- [place], KYTricyclic Antidepressants, UrineNegativeNEGATIVEMercy Health- [place], KYComment on above:Drug screen results are to be used for medical purposes only. All positive results are unconfirmed. Testing for employment or legal uses should be sent to a reference laboratory for confirmation. Chlamydia/GC DNA, TPon [id number] Probe, TPNegativeNormalNEGMercy [place] HospitalComment on above:Result Comment: CHLAMYDIA TRACHOMATIS DNA not detected by nucleic acid [...] positive results by an alternative nucleic acid target.Performed By: #### PPPVP #### [employer] [address] [place] [phone] Whiteprinting Machine Operator: Yoselin Ryder, TPNegativeNoAultman Alliance Community HospitalComment on above:Result Comment: NEISSERIA GONORRHOEAE DNA not detected by nucleic acid [...] positive results by an alternative nucleic acid target.Performed By: #### PPPVP #### [employer] [address] [place] [address] [phone] Whiteprinting Machine Operator: AMNA Ryderytologyon 52-97-7665Cblyerps(NOTE) INTERPRETATION Cervical material, (ThinPrep vial, Imaging-assisted review): Specimen Adequacy: Satisfactory for evaluation. -Endocervical/transformation zone component is absent. Descriptive Diagnosis: Negative for intraepithelial lesion or malignancy. Shift in rebecca suggestive of bacterial vaginosis. Felt Hat Mellowing Machine Operator: WILLIAM Mendes(ASCP) Electronically Signed Out vaibhav/10/17/2019 Source: 1: Cervical material, (ThinPrep vial, Imaging-assisted review) Clinical History Oral Contraceptives Z01.419 Routine development architect exam without abnormal findings High Risk HPV DNA testing is requested if the diagnosis is ASC-US LMP: 09/17/2019 GYNECOLOGIC CYTOLOGY REPORT Patient Name: ROBLES YEN [facility] Rec: [id number] Path Number: [id number] Tackle Grab CONSULTING PATHOLOGISTS [facility] ANATOMIC PATHOLOGY [address] [place] [id number] NormalMercy Health Urbana HospitalComment on above:Performed By: #### PPPVP #### [facility] [address] [place], [place] 8783[address] Whiteprinting Machine Operator: JEROMY Ryder, Quanton [id number], Quant<1Normal<5[facility] HospitalComment on above:Result Comment: Non-preg premeno <=5 Postmeno <=8 Male <=3 If HCG results do not concur with clinical observations, additional testing to confirm results is recommended. Elevated results not associated with may be found in patients with other diseases such as tumors of the germ cells (testis, ovaries, etc.), bladder, pancreas, stomach, lungs, and liver.Performed By: #### BHCG #### [facility] [address] [place] [address] [place] [address] Whiteprinting Machine Operator: Chase Glez MDMarc, Quantitative, PregnancyOrdered By: Amaya Russo on 00-20-9731kAA Quant<1<5 IU/LMercy [employer] Work Phone: comment on above: Non-preg premeno <=5 Postmeno <=8 Male <=3 If HCG results do not concur with clinical observations, additional testing to confirm results is recommended. Elevated results not associated with may be found in patients with other diseases such as tumors of the germ cells (testis, ovaries, etc.), bladder, pancreas, stomach, lungs, and liver. Glucose [place]. 2 hron Hr139 mg/yDQetpur07-998DzgsjMercy Health U[facility]ana Hospital Comment on above:Performed By: #### GLU2HR #### [facility] [address] [place] [address] Whiteprinting Machine Operator: Chase Glez MD1 Hr143 mg/yGZpnhld04-262DcgjhMercy Health Urbana Hospital Comment on above:Performed By: #### GLU2HR #### [facility] [address] [place] [address] Whiteprinting Machine Operator: Chase Glez MDFasting91 mg/kLUcacrl24-61Nbnlq [place] [facility] Comment on above:Performed By: #### GLU2HR #### [facility] [address] [place] [address] Whiteprinting Machine Operator: Chase Glez MDGlucose [Mass/Vol]75 [facility] Comment on above:Performed By: #### GLU2HR #### [facility] [address] [place] [address] Whiteprinting Machine Operator: Chase Glez MDGlucose Tolerance, 2 Hrson 32-74-6606Xdpebpn [Mass/Vol]75 [place], KYGlucose [Mass/Vol]91 mg/dL65 - 99 mg/dLMiffl[place], KYGlucose, GTT - 1 Laxb081 mg/dL65 - 184 mg/dLMif[place], [place] Glucose, GTT - 2 Devg847 mg/dL65 - 139 mg/dLMiffl[place], KYGlucose, Whole Bloodon 75-73-8174Fpuzgft [Mass/Vol]88 mg/dL74 - 100 mg/dLMiffl[place], [place] Glucose, Whole Bloodon 79-32-1134Nikfsrs [Mass/Vol]104 mg/mMDnwu49 - 100 mg/dL [place], KYInterpretation and review of laboratory resultsAbMary [facility] Hospital, DCAPTClearsky Rehabilitation Hospital [facility] 13-57-8691mVLT Coag (Bld) [Time]25.3 [place], [place] CBC auto differentialon 00-52-0311Eiisymygi (Bld) [#/Vol]10*3/[facility], KYBasophils/100 WBC (Bld)0 %0 - 2 %[place], KYDifferential TypeNOT REPORTEDSouthwest General Health Center, DCEosinophils (Bld) [#/Vol]0.10 10*3/[facility], DCEosinophils/100 WBC (Bld)1 %1 - 4 %[place], KYErythrocyte distribution width (RBC) [Ratio]14.2 %11.8 - 14.4 %[place], [place] Hematocrit (Bld) [Volume fraction]29.5 %Low36.3 - 47.1 %[facility], [place] Hemoglobin (Bld) [Mass/Vol]9.8 g/dLLow11.9 - 15.1 g/dLSouthwest General Health Center, [place] Immature granulocytes (Bld) [#/Vol]1 %Igwi3FvgouMifflintown, KYImmature granulocytes (Bld) [#/Vol]0.10 10*3/[facility], DCInterpretation and review of laboratory resultsAbnormalSouthwest General Health Center, DCLymphocytes (Bld) [#/Vol]1.31 10*3/[facility], ANDREWSLymphocytes/100 WBC (Bld)18 %Low24 - 43 % [facility], [facility] ([facility]BC) [Entitic mass]29.8 pg25.2 - 33.5 pgMifflintown, KYMCHC (RBC) [Mass/Vol]33.2 g/dL28.4 - 34.8 g/dLSouthwest General Health Center, DCMCV (RBC) [Entitic vol]89.7 fL82.6 - 102.9 fLSouthwest General Health Center, ANDREWSMonocytes (Bld) [#/Vol]0.73 10*3/[facility], ANDREWSMonocytes/100 WBC (Bld)10 %3 - 12 %[place], KYPlatelet mean volume (Bld) [Entitic vol]11.4 fL8.1 - 13.5 fLSouthwest General Health Center, ANDREWSPlatelets (Bld) [#/Vol]NOT REPORTEDSouthwest General Health Center, KYPlatelets (Bld) [#/Vol]148 10*3/[facility], DCRBC (Bld) [#/Vol]3.29 10*6/uLLow3.95 - 5.11 m/[facility], DCRBC morphology finding Nom (Bld)NOT REPORTED [facility], DCSegmented neutrophils/100 WBC (Bld)70 %High36 - 65 %[facility], DCSegs Absolute5.17[facility], DCWBC (Bld) [#/Vol]7.4 10*3/uL [facility]- [place], KYWBC (Bld) [#/Vol]0.0 10*3/uL0.0 per 100 WBCChillicothe Va [facility]- [place], KYWBC MorphologyNOT REPORTEDMer Health- [place], KYComprehensive metabolic panelon 99-48-5498Xgdznrp [Mass/Vol]3.1 g/dLLow3.5 - 5.2 g/dLChillicothe [facility]- [place], [place] Albumin/Globulin [Mass ratio]1.0 {ratio}[facility]- [place], KYALP [Catalytic activity/Vol]124 U/LHigh35 - 104 U/LM[facility]- [place], KYALT [Catalytic activity/Vol]7 U/L5 - 33 U/LMercy Health- [place], KYAnion gap [Moles/Vol]13 mmol/L9 - 17 mmol/LMercy Health- [place], KYAST [Catalytic activity/Vol]14 U/L<32[facility]- [place], KYBilirubin Ql (U)0.36 mg/dL0.3 - 1.2 mg/dLChillicothe [facility]- [place], [place] Bun/Cre Dkzvx25Rkkxd Health- [place], KYCalcium [Mass/Vol]9.3 mg/dL8.6 - 10.4 mg/dL [facility]- [place], KYChloride [Moles/Vol]103 mmol/L98 - 107 mmol/LMtri[facility]- [place], KYCO2 [Moles/Vol]19 mmol/LLow20 - 31 mmol/LM[facility]- [place], KYCreatinine [Mass/Vol]0.84 mg/dL0.5 - 0.9 mg/dLChillicothe [facility]- [place], KYGFR >60 >60 mL/minChillicothe [facility]- [place], KYGFR Non->60>60 mL/minChillicothe Va [facility]- [place], KYGlucose [Mass/Vol]77 mg/dL70 - 99 mg/dLChillicothe Va [facility]- [place], KYPotassium [Moles/Vol]3.8 mmol/L3.7 - 5.3 mmol/LMercy Health- [place], KYProtein [Mass/Vol]6.3 g/dLLow6.4 - 8.3 g/dLChillicothe [facility]- [place], KYSodium [Moles/Vol]135 mmol/L135 - 144 mmol/LMercy Health- [place], KYUrea nitrogen [Mass/Vol]8 mg/dL6 - 20 mg/dLMercy Health- [place], KYDRUG SCREEN MULTI URINEon 50-99-6921Tbfdqnpthia Screen, UrNegative NEGATIVEMercy Health- [place], KYBarbiturate Screen, UrNegativeNEGATIVEMercy Health- [place], KYBenzodiazepine Screen, UrineNegativeNEGATIVEMercy Health- [place], [place] Buprenorphine UrineNegativeNEGATIVEMercy Health- [place], KYCannabinoid Scrn, Ur NegativeNEGATIVEMercy Health- [place], KYCocaine Metabolite, UrineNegativeNEGATIVE [facility]- [place], KYMDMA, UrineNOT REPORTEDNEGATIVEMercy Health- [place], KYMethadone Screen, UrineNegativeNEGATIVEMercy Health- [place], KYMethamphetamine, UrineNegative NEGATIVEMercy Health- [place], KYOpiates, UrineNegativeNEGATIVEMercy Health- [place], [place] Oxycodone Screen, UrNegativeNEGATIVEMercy Health- [place], KYPhencyclidine, Urine NegativeNEGATIVEMercy Health- [place], KYPropoxyphene, UrineNegativeNEGATIVEMercy Health- [place], KYTest InformationNOT REPORTEDMercy Health- [place], KYTricyclic Antidepressants, UrineNegativeNEGATIVEMercy Health- [place], KYComment on above:Drug screen results are to be used for medical purposes only. All positive results are unconfirmed. Testing for employment or legal uses should be sent to a reference laboratory for confirmation. Fibrinogenon 14-60-3428Asubbwouml190 mg/eZFius495 - 451 mg/dLSouthwest General Health Center, DCInterpretation and review of laboratory resultsAbnormalSouthwest General Health Center, [place] Lactate Dehydrogenaseon 68-23-5285BL143 U/L135 - 214 U/LMercy HealthSA[facility], [place] Metabolic Panelon 26-14-6568YJI/1.73 sq M predicted among non-blacks MDRD (S/P/Bld) [Vol rate/Area][facility], DCComment on above:Average GFR for 30-39 years old: 107 mL/min/1.73sq m Chronic Kidney Disease: <60 mL/min/1.73sq m Kidney failure: <15 mL/min/1.73sq m eGFR calculated using average adult body mass. Additional eGFR calculator available at: http://www.Evostor.HealthHiway/multiple_crcl_2012.htm Stage 1: Some kidney damage normal GFR Stage 2: Mild kidney damage GFR 60-89 Stage 3: Moderate kidney damage GFR 30-59 Stage 4: Severe kidney damage GFR 15-29 Stage 5: Severe kidney damage GFR <15 ESRD - chronic treatment by dialysis or transplant Otheron 44-96-5950Uoytexnhvnvzbd and review of laboratory resultsAbnormalUc Medical Center- [place], KYProtime-INRon 29-60-3567EJA Coag (PPP) [Relative time]1.0 {INR} [facility]- [place], KYPT Coag (PPP) [Time]9.8 [facility], DCUric acidon 72-10-1732Jbfaa [Mass/Vol]6.8 mg/dLHigh2.4 - 5.7 mg/dLSouthwest General Health Center, DCAPTTon 31-74-4010tUXG Coag (Bld) [Time]23.4 [facility], DCCBC Auto Differential on 84-40-9259Pqssbzkhh (Bld) [#/Vol]0.03 10*3/[facility], [place] Basophils/100 WBC (Bld)0 %0 - 2 %[facility], DCDifferential TypeNOT REPORTEDUc Medical Center- [place], KYEosinophils (Bld) [#/Vol]0.12 10*3/[facility], KYEosinophils/100 WBC (Bld)1 %1 - 4 %[facility], DCErythrocyte distribution width (RBC) [Ratio]14.3 %11.8 - 14.4 %[facility], [place] Hematocrit (Bld) [Volume fraction]30.2 %Low36.3 - 47.1 %[facility]- [place], [place] Hemoglobin (Bld) [Mass/Vol]10.3 g/dLLow11.9 - 15.1 g/dLSouthwest General Health Center, [place] Immature granulocytes (Bld) [#/Vol]2 %Lv[address] [place] [address]- [place], DCImmature granulocytes (Bld) [#/Vol]0.22 10*3/[facility], DCInterpretation and review of laboratory resultsAbnormalMiddletown Hospital [place], ANDREWSLymphocytes (Bld) [#/Vol]1.19 10*3/uLUc Medical Center- [place], KYLymphocytes/100 WBC (Bld)13 %Low24 - 43 % [facility] [place], [facility] (RBC) [Entitic mass]30.4 pg25.2 - 33.5 pgMiddletown Hospital [place], DCMCHC (RBC) [Mass/Vol]34.1 g/dL28.4 - 34.8 g/dLMiddletown Hospital [place], [facility] (RBC) [Entitic vol]89.1 fL82.6 - 102.9 fLMiddletown Hospital [place], DCMonocytes (Bld) [#/Vol]0.74 10*3/uLUc Medical Center- [place], DCMonocytes/100 WBC (Bld)8 %3 - 12 %[facility], DCPlatelet mean volume (Bld) [Entitic vol]NOT REPORTED8.1 - 13.5 fL [facility], DCPlatelets (Bld) [#/Vol]NOT REPORTEDSouthwest General Health Center, [place] Platelets (Bld) [#/Vol]See Reflexed IPF ResultSouthwest General Health Center, DCRBC (Bld) [#/Vol]3.39 10*6/uLLow3.95 - 5.11 m/[facility], DCRBC morphology finding Nom (Bld)NOT REPORTEDSouthwest General Health Center, DCSegmented neutrophils/100 WBC (Bld)75 %High36 - 65 %[facility], DCSegs Absolute6.71[facility] [place], DCWBC (Bld) [#/Vol]0.0 10*3/uL0.0 per 100 WBCUc Medical Center- [place], DCWBC (Bld) [#/Vol]9.0 10*3/uLUc Medical Center- [place], DCWBC MorphologyNOT REPORTEDUc Medical Center- [place], [place] Comprehensive Metabolic Panelon 29-39-5329Hhzcnuc [Mass/Vol]3.2 g/dLLow3.5 - 5.2 g/dLUc Medical Center- [place], DCAlbumin/Globulin [Mass ratio]1.0 {ratio}[facility]- [place], KYALP [Catalytic activity/Vol]106 U/LHigh35 - 104 U/LMerc Health- [place], KYALT [Catalytic activity/Vol]7 U/L5 - 33 U/LM[facility]- [place], KYAnion gap [Moles/Vol] 13 mmol/L9 - 17 mmol/LMercy Health- [place], KYAST [Catalytic activity/Vol]11 U/L<32 [facility]- [place], KYBilirubin Ql (U)0.25 mg/dLLow0.3 - 1.2 mg/dLChillicothe [facility]- [place], KYBun/Cre Fqsjj9FqyUqnge Health- [place], KYCalcium [Mass/Vol]9.8 mg/dL8.6 - 10.4 mg/dLChillicothe [facility]- [place], KYChloride [Moles/Vol]103 mmol/L98 - 107 mmol/LMtri[facility]- [place], KYCO2 [Moles/Vol]19 mmol/LLow20 - 31 mmol/LMtrihealth [facility]- [place], [place] Creatinine [Mass/Vol]0.89 mg/dL0.5 - 0.9 mg/dLChillicothe [facility]- [place], KYGFR >60>60 mL/minUc Medical Center- [place], KYGFR Non->60>60 mL/min [facility]- [place], KYGlucose [Mass/Vol]103 mg/aULtqt26 - 99 mg/dLUc Medical Center- [place], KYInterpretation and review of laboratory resultsAbnormGrand Lake Joint [facility]- [place], KYPotassium [Moles/Vol]3.5 mmol/LLow3.7 - 5.3 mmol/LMtri[facility]- [place], KYProtein [Mass/Vol]6.5 g/dL6.4 - 8.3 g/dLChillicothe [facility]- [place], KYSodium [Moles/Vol]135 mmol/L 135 - 144 mmol/LMtrihealth [facility]- [place], KYUrea nitrogen [Mass/Vol]6 mg/dL6 - 20 mg/dL [facility]- [place], KYFibrinogenon 01-97-7402Wywcqhucuf246 mg/cVGntm064 - 451 mg/dLUc Medical Center- [place], KYImmature Platelet Fractionon 95-00-9994Eulaqzuajwfjvq and review of laboratory resultsAbnormalChillicothe [facility]- [place], KYPlatelet, Knwduvyczitt618AdlEuccm Health- [place], KYPlatelet, Immature Bzouwtxm81.3 %1.1 - 10.3 %[facility], KYLactate Dehydrogenaseon 75-73-3884QU476 U/L135 - 214 U/LMercy Health- [place], KYMetabolic Panelon 61-64-5036RYQ/1.73 sq M predicted among non-blacks MDRD (S/P/Bld) [Vol rate/Area][facility], KYComment on above: Stage 1: Some kidney damage normal GFR Stage 2: Mild kidney damage GFR 60-89 Stage 3: Moderate kidney damage GFR 30-59 Stage 4: Severe kidney damage GFR 15-29 Stage 5: Severe kidney damage GFR <15 ESRD - chronic treatment by dialysis or transplant Average GFR for 30-39 years old: 107 mL/min/1.73sq m Chronic Kidney Disease: <60 mL/min/1.73sq m Kidney failure: <15 mL/min/1.73sq m eGFR calculated using average adult body mass. Additional eGFR calculator available at: http://www.Tesaris/multiple_crcl_2012.htm Microscopic Urinalysison 83-73-5510Jgbwtmgfb, UANOT REPORTEDNoneMest. el[facility] hospital Health- [place], KYBacteria, UATRACEAbnormalNonWood [facility] Hospital [facility]- [place], KYCasts UANOT REPORTED/LPF [facility]- [place], KYCrystals UANOT REPORTEDNone /HPFChillicothe [facility]- [place], [place] Epithelial Cells UA5 TO 10[facility]- [place], KYInterpretation and review of laboratory resultsAbnormalChillicothe [facility]- [place], KYMucus, UATRACEAbnormalNonWood County Hospital [facility]- [place], KYOther Observations UANOT REPORTEDNOT REQ.[facility]- [place], KYRBC (U) [#/Vol]NoneMer Health- [place], KYRenal Epithelial, UrineNOT REPORTED0 /HPF [facility]- [place], KYTrichomonas, UANOT REPORTEDNoneMey Health- [place], KYWBC, UA5 TO 10[facility]- [place], KYYeast, UANOT REPORTEDNoneMey Health- [place], [place]-[facility]- [place], KYOtheron 94-83-2817Viwgyouskhaqbs and review of laboratory results AbnormalMercy Health- [place], KYProtein / creatinine ratio, urineon 12-04-2018 Creatinine, Ur93.6 mg/dL28 - 217 mg/dLMercy Health- [place], KYProtein (U) [Mass/Vol] 14 mg/dLMercy Health- [place], KYComment on above:No normal range established.Urine Total Protein Creatinine Ratio0.15[facility]- [place], KYProtime-INRon 12-04-2018 INR Coag (PPP) [Relative time]0.9 {INR}[facility]- [place], KYPT Coag (PPP) [Time] 9.4 sLowMercy Health- [place], KYUric Acidon 95-60-7641Jwrfl [Mass/Vol]5.7 mg/dL2.4 - 5.7 mg/dLMercy Health- [place], KYUrinalysison 00-54-3535Tpdspfynd UrineNegative NEGATIVEMercy Health- [place], KYColor, UAYELLOWYELLOWMercy Health- [place], KYGlucose, Ur NegativeNEGATIVEMercy Health- [place], KYInterpretation and review of laboratory resultsAbnormalMercy Health- [place], KYKetones Ql (U)NegativeNEGATIVEMercy Health- [place], KYLeukocyte esterase Test strip Ql (U)MODERATEAbnormalNEGATIVEMercy Health- [place], KYNitrite, UrineNegativeNEGATIVEMercy Health- [place], KYpH, UA7.5[facility]- [place], KYProtein (U) [Mass/Vol]NegativeNEGATIVEMercy Health- [place], KYSpecific Wister, UA1.010[facility]- [place], KYTurbidity UASLIGHTLY CLOUDYAbnormalCLEAR [facility]- [place], KYUrinalysis CommentsNOT REPORTEDMercy Health- [place], KYUrine Hgb NegativeNEGATIVEMercy Health- [place], KYUrobilinogen, UrineNormalNormalMercy Health- [place], KYGlucose tolerance, 1 houron 70-46-3749UND ADMNGlucolaMercy Health- [place], [place] Glucose tolerance screen 78h664 mg/dTTblp75 - 135 mg/dLMercy Health- [place], [place] Interpretation and review of laboratory resultsAbnormalMercy Health- [place], [place] Hemoglobinon 89-95-7729Paxcrlwdzh (Bld) [Mass/Vol]10.8 g/dLLow11.9 - 15.1 g/dL [facility], KYInterpretation and review of laboratory resultsAbnoAdams County Hospital, [place] Vital Signs Date TimeVital SignValuePerforming RkihovevyGexnrdch44-69-6407 15:10-0400Body qxxiix740.02 César Aichholz SPECIAL EDUCATION SUPERINTENDENT-C Work Phone: [phone]10-06-2025 15:10-0400 Body mass index (BMI) [Ratio]28.7 kg/m2Lisa Aichholz SPECIAL EDUCATION SUPERINTENDENT-C Work Phone: [phone]10-06-2025 15:10-0400 Body pkiryy55.48 kgLisa Aichholz SPECIAL EDUCATION SUPERINTENDENT-C Work Phone: [phone]10-06-2025 15:10-0400 Diastolic blood aqguhgxg95 mm[Hg]Kika Aichholz SPECIAL EDUCATION SUPERINTENDENT-C Work Phone: [phone]10-06-2025 15:10-0400 Heart rate79 /minLisa Aichholz SPECIAL EDUCATION SUPERINTENDENT-C Work Phone: [phone] [address]10-06-2025 15:10-0400 Respiratory rate16 /minLisa Aichholz SPECIAL EDUCATION SUPERINTENDENT-C Work Phone: [phone]10-06-2025 15:10-0400 SaO2% (BldA) [Mass fraction]98 %Kika Aichholz SPECIAL EDUCATION SUPERINTENDENT-C Work Phone: [phone]10-06-2025 15:10-0400 Systolic blood oheitljx756 mm[Hg]Kika Aichholz SPECIAL EDUCATION SUPERINTENDENT-C Work Phone: [phone]08-18-2025 09:05-0400 Body mass index (BMI) [Ratio]29.72 kg/m2Lisa Aichholz SPECIAL EDUCATION SUPERINTENDENT Work Phone: [facility] MedicineMcixwuzrkw69-99-8398 09:05-0400Body temperature 98.49 [degF]Kika Aichholz SPECIAL EDUCATION SUPERINTENDENT Work Phone: [facility] MedicineQflhitakns00-75-6691 09:05-0400Body crmupn90.11 kgLisa Aichholz SPECIAL EDUCATION SUPERINTENDENT Work Phone: [facility] MedicineSmhlcaoips01-09-7246 09:05-0400Diastolic blood mm[Hg]Kika Aichholz SPECIAL EDUCATION SUPERINTENDENT Work Phone: [facility] MedicineOxlzrdddeg07-38-1044 09:05-0400Heart rate87 /min Kika Aichholz SPECIAL EDUCATION SUPERINTENDENT Work Phone: [place] [address]Inmtqlczrk28-20-0412 09:05-0400Respiratory rate18 /minLisa Aichholz SPECIAL EDUCATION SUPERINTENDENT Work Phone: [facility] MedicineCzlkpegmdo92-25-5318 09:05-2831PyR2% (BldA) [Mass fraction]97 %Kika Aichholz SPECIAL EDUCATION SUPERINTENDENT Work Phone: [facility] MedicineBiwhnakmvj06-65-3912 09:05-0400Systolic blood djbkziaw749 mm[Hg]Kika Aichholz SPECIAL EDUCATION SUPERINTENDENT Work Phone: [facility] MedicineCrdlxgpfqn76-48-8568 11:35-0400Diastolic blood mnerxjab06 mm[Hg]Kika Aichholz Work Phone: [facility]06-06-2025 11:35-0400 Heart rate65 /minLisa Aichholz Work Phone: [phone] [place], [place] [address]06-06-2025 11:35-0400 Respiratory rate15 /minLisa Aichholz Work Phone: [phone] [place], [place] [address]28[address]06-06-2025 11:35-0400 SaO2% (BldA) [Mass fraction]97 %Kika Aichholz Work Phone: [phone] [place], [place] [address]289906-06-2025 11:35-0400 Systolic blood urnrpizd058 mm[Hg]Kika Aichholz Work Phone: [phone] [place], [place] [address]28[address]06-06-2025 08:44-0400 Body qaqvbo126.02 César Guaman Work Phone: [facility]06-06-2025 08:44-0400 Body .82 kgKika Felixz Work Phone: [facility]05-15-2025 09:22-0400 Body mass index (BMI) [Ratio]33.73 kg/m2Kika Schusterfelipe SPECIAL EDUCATION SUPERINTENDENT Work Phone: [facility] MedicineNmqiichmci65-99-0993 09:22-0400Body temperature 98.29 [degF]Kika Deniz SPECIAL EDUCATION SUPERINTENDENT Work Phone: [facility] MedicineJpctbwomwd19-29-0597 09:22-0400Body .36 kgKika Schusterfelipe SPECIAL EDUCATION SUPERINTENDENT Work Phone: [facility] MedicineOrrdfcvgfm90-14-4109 09:22-0400Diastolic blood bxykanuh21 mm[Hg]Kika Schusterfelipe SPECIAL EDUCATION SUPERINTENDENT Work Phone: [facility] MedicineSkzmidneyd30-66-1411 09:22-0400Heart rate96 /min Kika Landenfelipe SPECIAL EDUCATION SUPERINTENDENT Work Phone: [facility] MedicineTxxpagyakc92-28-5841 09:22-0400Respiratory rate18 /minLisa Felixyoni SPECIAL EDUCATION SUPERINTENDENT Work Phone: [facility] MedicineOjwhlesnop32-89-8845 09:22-9155VbG7% (BldA) [Mass fraction]97 %Kika Schusterfelipe SPECIAL EDUCATION SUPERINTENDENT Work Phone: [facility] MedicineVibtkkqcgf56-15-3899 09:22-0400Systolic blood yundxkoz773 mm[Hg]Kika Deniz SPECIAL EDUCATION SUPERINTENDENT Work Phone: [facility] MedicineHuufcwgzaa12-15-9897 12:27-0400Body bnwxva296 cm Briana Gordon DO Work Phone: noMer[facility] John'sJhxkvjjuma53-81-0691 12:27-0400Body mass index (BMI) [Ratio]34.72 kg/w8Ewuulkpyegx Heidi DO Work Phone: noMer[facility] St[facility] John'sGsllxigjjq06-42-8246 12:27-0400Body gazwjb41.91 kgChristopher Heidi DO Work Phone: noMercy Hospital St[facility] John'sOwgfabtmqt19-62-8383 12:27-0400Diastolic blood gziedjam69 mm[Hg]Oseier Heidi DO Work Phone: noMercy Hospital St. John'sJfzlbicwsv41-98-6312 12:27-0400Systolic blood mm[Hg]Christxochitler Heidi DO Work Phone: [facility] MedicineUyspttoddg70-48-2246 09:07-0500Body zomdxr525 cm Kika Guaman SPECIAL EDUCATION SUPERINTENDENT Work Phone: [facility] MedicineRapvpijjxh39-35-9360 09:07-0500Body mass index (BMI) [Ratio]35.11 kg/m2Kika Guaman SPECIAL EDUCATION SUPERINTENDENT Work Phone: [facility] MedicineRtndjxxkkc08-76-2741 09:07-0500Body temperature 98.1 [degF]Kika Guaman SPECIAL EDUCATION SUPERINTENDENT Work Phone: [facility] MedicineUntfbrbguk62-58-6275 09:07-0500Body atsrnc26.9 kg Kika Deniz SPECIAL EDUCATION SUPERINTENDENT Work Phone: [facility] MedicineQzxsrfzlih36-19-9140 09:07-0500Diastolic blood hhpjakie90 mm[Hg]Kika Guaman SPECIAL EDUCATION SUPERINTENDENT Work Phone: [facility] MedicineLearyynnzf19-88-9257 09:07-0500Heart rate71 /min Kika Deniz SPECIAL EDUCATION SUPERINTENDENT Work Phone: [facility] MedicineFpkvwpskdh97-49-7716 09:07-0500Respiratory rate18 /minLisa Deniz SPECIAL EDUCATION SUPERINTENDENT Work Phone: [facility] MedicinePpusdwkjqa32-01-1928 09:07-0425BeH4% (BldA) [Mass fraction]97 %Kika Guaman SPECIAL EDUCATION SUPERINTENDENT Work Phone: [facility] MedicineGshmekopru98-58-9230 09:07-0500Systolic blood remhbdai795 mm[Hg]Kika Guaman SPECIAL EDUCATION SUPERINTENDENT Work Phone: [facility] MedicineCrimcjpbat42-22-2840 10:10-0500Body itgiow681 cm Kika Elviraz SPECIAL EDUCATION SUPERINTENDENT Work Phone: [facility] MedicineXixpceldmv67-22-3333 10:10-0500Body mass index (BMI) [Ratio]35.61 kg/m2Sylviasa Landenholz SPECIAL EDUCATION SUPERINTENDENT Work Phone: [facility] MedicineXvugkrzjhi76-96-2311 10:10-0500Body temperature 98.8 [degF]Kika Felixz SPECIAL EDUCATION SUPERINTENDENT Work Phone: [facility] MedicineWswysmjcoo56-44-4666 10:10-0500Body ajhflm91.17 kgLisa Landenholz SPECIAL EDUCATION SUPERINTENDENT Work Phone: [facility] MedicineWhwzoxovpe08-34-7451 10:10-0500Diastolic blood mcixdwlp49 mm[Hg]Kika Elviraz SPECIAL EDUCATION SUPERINTENDENT Work Phone: [facility] MedicineQbdliqilmh08-14-8303 10:10-0500Heart rate89 /min Kika Elviraz SPECIAL EDUCATION SUPERINTENDENT Work Phone: [facility] MedicineHnljjciohc85-03-1539 10:10-0500Respiratory rate18 /minLisa Felixz SPECIAL EDUCATION SUPERINTENDENT Work Phone: [facility] MedicineFeflcjjnnl11-26-3664 10:10-8687MmY1% (BldA) [Mass fraction]97 %Kika Elviraz SPECIAL EDUCATION SUPERINTENDENT Work Phone: [facility] MedicineJctopnudct60-34-3224 10:10-0500Systolic blood afwcwmes310 mm[Hg]Kika Elviraz SPECIAL EDUCATION SUPERINTENDENT Work Phone: [facility] MedicineQcusbqhira21-57-7723 13:49-0400Body cm Kika Landenholz SPECIAL EDUCATION SUPERINTENDENT Work Phone: [facility] MedicineJtnugxorhs25-79-0398 13:49-0400Body mass index (BMI) [Ratio]34.76 kg/m2Sylviasa Landenholz SPECIAL EDUCATION SUPERINTENDENT Work Phone: [facility] MedicineJbvxmxpczi86-60-8602 13:49-0400Body temperature 98.49 [degF]Kika Landenholz SPECIAL EDUCATION SUPERINTENDENT Work Phone: [facility] MedicineMmraakfvuf08-80-5095 13:49-0400Body qutmez69 kg Kika Landenholz SPECIAL EDUCATION SUPERINTENDENT Work Phone: [facility] MedicineMaaroihgag27-57-6070 13:49-0400Diastolic blood mfxbfqga31 mm[Hg]Kika Aichholz SPECIAL EDUCATION SUPERINTENDENT Work Phone: [facility] MedicineGoitfebaqc48-39-8412 13:49-0400Heart rate97 /min Kika Concepciónhholz SPECIAL EDUCATION SUPERINTENDENT Work Phone: [facility] MedicineDetfirubcc54-39-9531 13:49-0400Respiratory rate18 /minLisa Concepciónhholz SPECIAL EDUCATION SUPERINTENDENT Work Phone: [facility] MedicineBdaimvuzzr04-68-9911 13:49-0700MhZ0% (BldA) [Mass fraction]97 %Kika Landenholz SPECIAL EDUCATION SUPERINTENDENT Work Phone: [facility] MedicineKrbdvwwrpd72-03-7663 13:49-0400Systolic blood qqotlfju361 mm[Hg]Kika Landenholz SPECIAL EDUCATION SUPERINTENDENT Work Phone: [facility] MedicineSolcjysyio05-32-4867 16:27-0400Body bibped770.02 cmLisa Aichholz Work Phone: [phone]04-25-2024 16:27-0400 Body mass index (BMI) [Ratio]35 kg/m2Lisa Aichholz Work Phone: [phone] [place], [place] [address]04-25-2024 16:27-0400 Body zpoxupjswvf71.2 [degF]Kika Aichholz Work Phone: [phone]04-25-2024 16:27-0400 Body bbjzudubtav34.7 [degF]Kika Aichholz Work Phone: [phone] [place], [place] [address]04-25-2024 16:27-0400 Body yveyov48.81 kgLisa Aichholz Work Phone: [facility]04-25-2024 16:27-0400 Diastolic blood palziqer11 mm[Hg]Kika Guaman Work Phone: [facility]04-25-2024 16:27-0400 Heart maxg848 /Marta Schusterholyoni Work Phone: [facility]04-25-2024 16:27-0400 Respiratory rate16 /Marta Schusterholyoni Work Phone: [facility]04-25-2024 16:27-0400 SaO2% (BldA) [Mass fraction]95 %Kika Guaman Work Phone: [facility]04-25-2024 16:27-0400 Systolic blood ompkbbwe400 mm[Hg]Kika Guaman Work Phone: [facility]03-14-2024 15:55-0400 Body pshbco229.02 [facility]03-14-2024 15:55-0400Body mass index (BMI) [Ratio]34.5 kg/[facility]03-14-2024 15:55-0400Body iglydxhnclf41.1 [degF][facility]03-14-2024 15:55-0400Body uzyoax49.45 [facility]24 15:55-0400Heart rzrh688 /[facility]03-14-2024 15:55-0400Respiratory rate18 /[facility]03-14-2024 15:55-8392YsH0% (BldA) [Mass fraction]98 %[facility] 04-07-2023 16:19-0500Body zowyxf992.02 [facility] 04-07-2023 16:19-0500Body mass index (BMI) [Ratio]34.2 kg/[facility]iy[facility]liczb[facility]2024 16:19-0500Body nmyokjzahaz64 [degF][facility]02-15-[facility] 16:19-0500Body fhiacr08.54 [facility] 16:19-0500Diastolic blood guqfgegu51 mm[Hg][facility]02-15-2024 16:19-0500Heart nlrc615 /[facility]02-15-2024 16:19-0500Respiratory rate18 /[facility]02-15-2024 16:19-5114XgS3% (BldA) [Mass fraction]98 %[facility]02-15-2024 16:19-0500Systolic blood lelpaadj593 mm[Hg][facility]04-05-2022 16:00-0400Body ahqkko069.02 Geraldine Zhu Other [employer] Other 04-05-2022 16:00-0400Body mass index (BMI) [Ratio] 32.59 kg/p9YbppeBarbara Zhu Other [place] Other 04-05-2022 16:00-0400Body wgwdnbmiafy58.8 [degF]Barbara Zhu Other [place] Other 04-05-2022 16:00-0400Body gtzdye31.46 kgBarbara Zhu Other [place] Other 04-05-2022 16:00-9167PfQ7% (BldA) [Mass fraction]97 % Barbara Zhu Other [place] Other 10-20-2021 16:15-0400Body zjgeis788.02 Goldie Ho Other [employer] Other 10-20-2021 16:15-0400Body mass index (BMI) [Ratio] 31.88 kg/x5Ovjbqhabhishek Ho Other [place] Other 10-20-2021 16:15-0400Body ybbberacoeh55.2 [degF]Katiuska Ho Other [place] Other 10-20-2021 16:15-0400Body ejyhxn04.65 kgKatiuska Ho Other [facility] Other 10-20-2021 16:15-0400Respiratory rate18 /minKatiuska Ho Other [facility] Other 10-20-2021 16:15-1554NuB7% (BldA) [Mass fraction]97 % Katiuska Ho Other [facility] Other 11-02-2019 08:46-0400Body Grtewknqsyi20.59 [degF] [facility], QO81-64-8658 08:46-0400BP Ytlexjxah58 mm[Hg] [facility], LO52-17-3447 08:46-0400BP Nzauuung305 mm[Hg] [facility], LM71-46-1543 08:46-0400Pulse (Heart Rate)81 /min [facility], SU03-23-0351 08:46-0400Respiratory Rate20 /min [facility], XQ83-08-7749 02:11-0400Pulse Phqpduhy25 %[facility], GU29-82-6430 15:35-0400BMI (Body Mass Index)37.91 kg/m2 [facility], FB22-23-6094 15:35-0400Body rlwcow01.07 kg [facility], MR55-04-3723 15:35-0559Zmpgsh710 [facility], AX37-40-1078 00:01-0400Body Obgjwuqxajz81.9 [degF]Freya Fischer [facility], XP05-62-8806 00:01-0400BP Cppoknabg43 mm[Hg]Freya [facility], OI85-77-4637 00:01-0400BP Zrbplfvy717 mm[Hg]Freya [facility], AK65-64-8822 00:01-0400Pulse (Heart Rate)105 /[facility], DX97-00-4776 00:01-0400Respiratory Rate18 /[facility], EU35-79-2149 23:44-0400BMI (Body Mass Index)37.2 kg/c1[facility]ww[facility], VC83-32-4292 23:44-0400Body .25 [facility]Sam[facility], [place] 12-05-2018 23:44-6621Kckvos313 [facility], [facility], FJ22-98-1621 11:48-0400BP Boyvijfsy47 mm[Hg][facility], BX09-85-1137 11:48-0400BP Kagwawgp609 mm[Hg][facility], FZ50-06-0985 11:48-0400Pulse (Heart Rate)95 /[facility], DW20-69-5140 11:15-0400Body Snglapkirke66.81 [degF][facility], [place] 12-04-2018 11:15-0400Respiratory Rate18 /[facility], [place] 10-17-2018 16:30-0400Body Iqajgtuihxc03.9 [degF][address], [place] 10-17-2018 16:30-0400BP Mlnujhotv91 mm[Hg][address], AP20-56-0426 16:30-0400BP Vmqaeqjc480 mm[Hg][address], QH99-68-1501 16:30-0400 Pulse (Heart Rate)86 /min[address], SC33-90-0469 16:30-0400 Respiratory Rate20 /minMth 01[facility] [place], [place] Encounters Encounter DateEncounter TypeCare ProviderFacilityStart: 11-26-2024 End: 66-99-9209zcrxoljrymSdia J Aichholz SPECIAL EDUCATION SUPERINTENDENT-C Work Phone: [facility] Work Phone: Start: 11-26-2024 End: 66-20-5613Wctxgae encounter procedureSlina Gunderson YTNN-OEX-W-[facility] [place] Work Phone: Start: 10-08-2024 End: 26-82-9086Blqakr flowsheetKika Guaman SPECIAL EDUCATION SUPERINTENDENT Work Phone: noms CWM FMStart: 10-08-2024 End: 53-11-1838Hucnap flowsheetKika Guaman SPECIAL EDUCATION SUPERINTENDENT Work Phone: noms CWM FMStart: 10-08-2024 End: 93-07-0802Heftvm outpatient visit 25 minutesLisa Guaman SPECIAL EDUCATION SUPERINTENDENT Work Phone: noms CWM FMComment on above:Moderate anxiety (Primary Dx); Morbid (severe) obesity due to excess calories (CMS-HCC); Major depressive disorder, single episode, moderate (HCC); Chronic pain of left knee; Migraine without aura and without status migrainosus, not intractableStart: 10-08-2024 End: 57-20-5702lcpfkfnasjTYTF AICHHOLZNot AvailableStart: 07-27-2024 End: 11-66-4692Exhsgru encounter procedureLisa Guaman Work Phone: [facility] Work Phone: Start: 07-27-2024 End: 02-88-2879wandsgocaoKrmu J Aichholz Work Phone: [facility] Work Phone: Start: 07-10-2024 End: 60-55-6308Pvrkmfo encounter procedureLisa Guaman Work Phone: [facility] [place] Work Phone: Start: 07-10-2024 End: 31-73-4289eqjrzjtdimIeiajlwssjh M HeidiFacility:[facility] Hospitaltart: 07-05-2024 End: 54-46-1053Bcvvlk flowsheetKika Beebeana laurafelipe SPECIAL EDUCATION SUPERINTENDENT Work Phone: noms CWM FMStart: 07-05-2024 End: 63-06-1100Ultsye flowsheetKika Beebeana laurafelipe SPECIAL EDUCATION SUPERINTENDENT Work Phone: noms CWM FMStart: 07-05-2024 End: 57-91-8032Chpaxg outpatient visit 15 minutesLisa Guaman SPECIAL EDUCATION SUPERINTENDENT Work Phone: noms CWM FMComment on above:Moderate anxiety (Primary Dx); Morbid (severe) obesity due to excess calories (CMS/HCC); Major depressive disorder, single episode, moderate (HCC) (CMS/HCC); Migraine without aura and without status migrainosus, not intractable (CMS/HCC) Start: 07-05-2024 End: 22-39-4375yqllrrbbtiTXJP PABLOot AvailableStart: 06-21-2024 End: 64-83-2913Bebfrztym Result EncounterChristopher Heidi DO Work Phone: NOMS External Department UnsolicitedStart: 06-21-2024 End: 76-98-7829Zvmwfupoc Result EncounterChristopher Heidi DO Work Phone: NOMS External Department UnsolicitedStart: 06-18-2024 End: 13-37-8482Nrnsbe flowsheetChristopher Heidi DO Work Phone: aNA BELLEVUEStart: 06-18-2024 End: 73-29-3675Rtmhuu flowsheetChristopher Heidi DO Work Phone: aNA BELLEVUEStart: 06-18-2024 End: 73-30-3697Avhemr outpatient new 45 minutesChristopher Heidi DO Work Phone: ana BELLEVUEComment on above:Idiopathic intracranial hypertension (Primary Dx)Start: 06-18-2024 End: 44-61-3637hfnbewculoYUOYGWQJCHX HASSETTNot AvailableStart: 05-23-2024 End: 61-86-3790JxzmknZoks Aichholz SPECIAL EDUCATION SUPERINTENDENT Work Phone: NOIA CWM FMComment on above:Urinary tract infection without hematuria, site unspecified (Primary Dx); Urinary tract infection symptomsStart: 05-10-2024 End: 89-67-2361Xephwuqbb Result EncounterLisa Aichholz SPECIAL EDUCATION SUPERINTENDENT Work Phone: NOLG External Department UnsolicitedStart: 05-10-2024 End: 99-22-6326Uugbicoal Result EncounterLisa Aichholz SPECIAL EDUCATION SUPERINTENDENT Work Phone: NOCN External Department UnsolicitedStart: 05-09-2024 End: 84-82-9543otifrfsptaVLQS AICHHOLZNot AvailableStart: 04-16-2024 End: 06-32-8802Eaagpncbf Result EncounterLisa Aichholz SPECIAL EDUCATION SUPERINTENDENT Work Phone: noms External Department UnsolicitedStart: 04-16-2024 End: 12-86-9632Phhlowlzd Result EncounterLisa Aichholz SPECIAL EDUCATION SUPERINTENDENT Work Phone: noms External Department UnsolicitedStart: 04-16-2024 End: 51-42-6736Sxcacb OnlyLisa Aichholz SPECIAL EDUCATION SUPERINTENDENT Work Phone: NOAE CWM FMComment on above:Migraine without aura and without status migrainosus, not intractable (CMS/HCC) (Primary Dx)Start: 04-10-2024 End: 42-10-0332Lsfvlw flowsheetLisa Aichholz SPECIAL EDUCATION SUPERINTENDENT Work Phone: NOMV CWM FMStart: 04-10-2024 End: 97-60-5960Xzhlzv flowsheetLisa Aichholz SPECIAL EDUCATION SUPERINTENDENT Work Phone: NOHU CWM FMStart: 04-10-2024 End: 42-77-4999Ynyaxv outpatient visit 25 minutesLisa Guaman SPECIAL EDUCATION SUPERINTENDENT Work Phone: noms CWM FMComment on above:Acute non-recurrent maxillary sinusitis (Primary Dx); Morbid (severe) obesity due to excess calories (CMS/HCC); Migraine without aura and without status migrainosus, not intractable (CMS/HCC); BMI 35.0-35.9,adultStart: 04-10-2024 End: 71-77-9999jpblboqpdkBNYD CONCEPCIÓNHHOLZNot AvailableStart: 03-20-2024 End: 14-80-9852Pwvkgnuxs encounterLisa Deniz SPECIAL EDUCATION SUPERINTENDENT Work Phone: noms CWM FMStart: 03-19-2024 End: 45-20-0372RkhyurJypw Deniz SPECIAL EDUCATION SUPERINTENDENT Work Phone: noms CWM FMComment on above:Herpesviral infection, unspecified; DysmenorrheaStart: 2024 End: 90-64-2289Lwswll flowsheetLisa Aichholz SPECIAL EDUCATION SUPERINTENDENT Work Phone: noms CWM FMStart: 2024 End: 96-80-9387Aoifrg flowsheetLisa Aichholz SPECIAL EDUCATION SUPERINTENDENT Work Phone: noms CWM FMStart: 2024 End: 37-52-3387Qyncxf outpatient visit 25 minutesLisa Elviraz SPECIAL EDUCATION SUPERINTENDENT Work Phone: noms CWM FMComment on above:Migraine without aura and without status migrainosus, not intractable (CMS/HCC) (Primary Dx); Major depressive disorder, single episode, moderate (HCC) (CMS/HCC); Morbid (severe) obesity due to excess calories (CMS/HCC); Moderate anxietyStart: 2024 End: 79-06-6720mllphwfzhbLEAV CONCEPCIÓNHHOLZNot AvailableStart: 02-04-2024 End: 93-69-7907Mrgklmbup department patient visitLISA Christi GUAMANProMedica Efland HospitalStart: 01-21-2024 End: 60-71-1575WzgfizGzeq Aichholyoni SPECIAL EDUCATION SUPERINTENDENT Work Phone: NOMS CWM FMComment on above:Acute cough (Primary Dx) Start: 11-10-2023 End: 05-53-0498SlxlxzXlqn Landenfelipe SPECIAL EDUCATION SUPERINTENDENT Work Phone: NOIF CWM FMComment on above:Osteoarthritis of knee, unspecified; Body mass index (BMI) 36.0-36.9, adultStart: 11-09-2023 End: 46-73-7246Hgwcdu flowsheetKika Schusterfelipe SPECIAL EDUCATION SUPERINTENDENT Work Phone: NOMS CWM FMStart: 11-09-2023 End: 95-89-4958Fnhrbj Rachael Schusterfelipe SPECIAL EDUCATION SUPERINTENDENT Work Phone: NOHT CWM FMStart: 11-09-2023 End: 45-52-4768LvlmcoNgeb Aichholyoni SPECIAL EDUCATION SUPERINTENDENT Work Phone: NOGG CWM FMComment on above:DysmenorrheaStart: 11-09-2023 End: 16-66-8295gdualvgzhkQGWA AICHHOLZNot AvailableStart: 11-09-2023 End: 75-44-9986Jtcicg outpatient visit 15 Leo Schusterfelipe SPECIAL EDUCATION SUPERINTENDENT Work Phone: NONN CWM FMComment on above:Moderate anxiety (Primary Dx); Dysmenorrhea; Morbid (severe) obesity due to excess calories (CMS/HCC); Moderate major depression (CMS/HCC)Start: 10-17-2023 End: 30-22-6859Drahukauz Result EncounterGeneric External Data ProviderNOMS External Department UnsolicitedStart: 10-17-2023 End: 17-50-6810Rrkjvognb Result EncounterGeneric External Data ProviderNOMS External Department UnsolicitedStart: 07-05-2023 End: 47-18-4320Dddxxhsgr Result EncounterGeneric External Data ProviderNOMS External Department UnsolicitedStart: 07-05-2023 End: 76-73-7597Duraoivey Result EncounterGeneric External Data ProviderNOMS External Department UnsolicitedStart: 06-23-2023 End: 80-15-8186Pfweiomak Result EncounterLisa Aichholz SPECIAL EDUCATION SUPERINTENDENT Work Phone: noms External Department UnsolicitedStart: 06-23-2023 End: 93-85-8775Uzzplknfw Result EncounterLisa Aichholz SPECIAL EDUCATION SUPERINTENDENT Work Phone: noms External Department UnsolicitedStart: 06-16-2023 End: 86-95-7014wdrltxccctZods J Aichholz Work Phone: [facility] Work Phone: Start: 06-16-2023 End: 55-58-7161Joitapx encounter procedureLisa Aichholz Work Phone: [facility] Work Phone: Start: 05-05-2023 End: 93-98-5693kicajqfziiVpxncknumJ.W. [facility] Work Phone: Start: 05-05-2023 End: 52-88-5283Unysocl encounter procedureCar[facility]ont [facility] Work Phone: Start: 04-13-2023 End: 37-68-9906Ekadesbbe Result EncounterLisa Aichholz SPECIAL EDUCATION SUPERINTENDENT Work Phone: noms External Department UnsolicitedStart: 04-13-2023 End: 62-66-1448Whmcobvkv Result EncounterLisa Aichholz SPECIAL EDUCATION SUPERINTENDENT Work Phone: noms External Department UnsolicitedStart: 04-07-2023 End: 50-67-6156hfvlpiogczArsbjhawxLake [facility] Work Phone: Start: 04-07-2023 End: 71-61-8229Pyvzkkd encounter procedureCar[facility]ont [facility] Work Phone: Start: 23-27-7675Huukdgiyl Result EncounterLisa Deniz SPECIAL EDUCATION SUPERINTENDENT Work Phone: noms External Department UnsolicitedStart: 03-23-2023 Clinisync Result EncounterLisa Landenholz SPECIAL EDUCATION SUPERINTENDENT Work Phone: noms External Department UnsolicitedStart: 03-23-2023 Patient encounter procedureLisa Elviraz SPECIAL EDUCATION SUPERINTENDENT Work Phone: noms HealthcareStart: 06-01-2022 End: 24-32-0221emxbjfffszDLP KIKA AICHHOLZFacility:K6Dqojj: 04-04-2022 End: 10-28-4091jzqgpeqqsnQOH KIKA AICHHOLZFacility:E2Fidxw: 12-22-2021 End: 14-28-7086gjkucafmmkAEK KIKA AICHHOLZFacility:U8Eckkt: 10-09-2021 End: 81-86-5693nqynwunwdrHFQ KIKA AICHHOLZFacility:V0Sgcys: 10-08-2021 End: 52-32-6965ikyagptifdHAH KIKA AICHHOLZFacility:Q2Unyrr: 09-28-2021 End: 74-39-2764hyqwspnpogMHO KIKA AICHHOLZFacility:K7Wpflq: 09-16-2021 End: 19-33-2138dnhzhhsirfQDE KIKA AICHHOLZFacility:W7Aeeqa: 05-26-2021 End: 84-34-7601tyflrsfoisOilhx Keller Other [employer] Other Start: 49-34-5961Cxgvmz outpatient visit 25 minutes [facility] ClydeStart: 01-14-2021 End: 50-28-3511izyektdixeBdnsnz [place] Other [place] Other Start: 73-37-6276Wtmzuw outpatient visit 5 minutes Katiuska HoFPMarc Urgent Care ClydeStart: 25-85-4981Funpfi outpatient visit 15 minutesPamela DymondFPG Urgent Care ClydeStart: 01-02-2020 End: 44-60-0321Zgjaijb [facility] procedureHenry [facility] Start: 01-02-2020 End: 39-19-0656Tnsnutzmhe hospital visit by Ada Beebeencompass health rehabilitation hospital of sewickleyzMTHZ LaboratoryComment on above:Amenorrhea; Positive urine test; Encounter for supervision of other normal in first trimesterStart: 10-11-2019 End: 92-54-2159Bxzkvkp encounter procedureHenry County Health Center Start: 10-11-2019 End: 13-57-2553Tvbolqihqi hospital visit by Ada Beebeencompass health rehabilitation hospital of sewickleyzMTHZ LaboratoryComment on above:Screen for STD (sexually transmitted disease); Encounter for well woman exam with routine gynecological examStart: 02-06-2019 End: 75-05-1836Hrhorkn encounter [facility] Start: 02-06-2019 End: 76-40-8766Wvpmexmprh hospital visit by Ada Guaman Work Phone: mthz LaboratoryComment on above:Irregular menses; Possible , not yet confirmedStart: 01-08-2019 End: 85-63-0330Gtpalih encounter [facility] Start: 01-08-2019 End: 44-54-7235Iybhsxhinf hospital visit by Paana laura [facility] Central RoomKSHZ LaboratoryComment on above:Gestational diabetes mellitus (GDM), postpartumStart: 12-21-2018 End: 94-01-6108Vpvaaabgpq and management of inpatientAmaya Chi Karan Work Phone: mthz Labor and DeliveryStart: 12-13-2018 End: 44-47-4507Fqqognybnv hospital visit by Ada Beebeencompass health rehabilitation hospital of sewickleyzMTHZ LaboratoryComment on above:35 weeks gestation of pregnancyStart: 12-05-2018 End: 02-60-4295Tpuefricse hospital visit by Javy Fischer Work Phone: mthz Labor and DeliveryStart: 12-04-2018 End: 04-95-0896Pemzavofjf hospital visit by Juan R Russo Work Phone: mthz Labor and DeliveryStart: 10-25-2018 End: 00-25-8391Jfdrolhguq [facility] Education [facility] Diabetic EducationComment on above:ArrivedStart: 10-17-2018 End: 95-56-5366Mnzhmuonuo hospital visit by physicianB[facility] Op Treatment Rm 01M[facility] (MOB)Start: 10-16-2018 End: 30-93-5553Whkfsrzhtr hospital [facility] LaboratoryComment on above:27 weeks gestation of ; Rh negative state in antepartum period, third trimesterRhD negativeChillicothe [facility]- [place], [place] Procedures DateProcedureProcedure DetailPerforming ClinicianStart: 02-97-6648Eyhg stain microscopyLisa Guaman Work Phone: Start: 32-37-6124Yrulbe puncture using fluoroscopic guidanceKika Guaman Work Phone: Start: 53-07-7746ZSO venographyLisa Guaman Work Phone: Start: 96-12-8602JBIDOA PROTHROMBIN TIME INR W/O COUM Briana Gordon DO Work Phone: Start: 36-00-5931ZOZ CBC WITH AUTO DIFFLisa Deniz SPECIAL EDUCATION SUPERINTENDENT Work Phone: Start: 54-98-3939VV HEAD/BRAIN WO CONLisa Deniz SPECIAL EDUCATION SUPERINTENDENT Work Phone: Start: 94-90-7285YM ANKLE LT WO CONGeneric External Data ProviderStart: 26-14-1996RK ANKLE LT MIN 3VGeneric External Data Provider Start: 31-13-6358BI ANKLE LT MIN 3VLisa Deniz SPECIAL EDUCATION SUPERINTENDENT Work Phone: Start: 58-33-3100Mrnzmzhovn examination knee 3 views Kika Guaman SPECIAL EDUCATION SUPERINTENDENT Work Phone: Start: 31-07-1260K-ray of left ankleLisa Deniz Work Phone: Start: 04-20-2023 End: 04-20-2023H/O: surgeryStatus post bilateral salpingectomyKika Beebebandar SPECIAL EDUCATION SUPERINTENDENT Work Phone: Start: 77-23-0352XG TOMOSYNTHESIS DIAGNOSTIC BILaj Schusterfelipe SPECIAL EDUCATION SUPERINTENDENT Work Phone: Start: 27-36-0187Nl breast uni real time with image limitedSylvia Deniz SPECIAL EDUCATION SUPERINTENDENT Work Phone: Start: 78-89-6090BCS COVID/FLU/RSVStart: 04-07-2023 Quick Strep (POC)Start: 49-97-6712ETR,APTIMA HPV,AGE GDLNKika Concepciónana laurafelipe SPECIAL EDUCATION SUPERINTENDENT Work Phone: Start: 33-26-2729Uptnjyaxkhj observation [Identifier] in Cervix by Cyto stainKika Guaman SPECIAL EDUCATION SUPERINTENDENT Work Phone: Start: 56-68-4719Cynaozboc panelKATHLEEN POOLStart: 06-54-4889UHYDWBLE TYPE AND SCREENKATHLEEN POOLStart: 82-09-9865Cxzibuzg hiv-1&hiv-2 single resultKATHLEEN POOLStart: 01-02-2020C.TRACHOMATIS N.GONORRHOEAE DNA, URINEKATHLEEN POOLStart: 48-76-4742Rpqsxdo bacterial quanttative colony count urineKATHLEEN POOLStart: 24-70-6725Jgte screen, qualitate/multiKATHLEEN POOLStart: 96-36-1937Fxmbobsxnv glycosylated b1xPHXBJQQI POOLStart: 83-28-9312Racyzdpqh c antibodyKATHLEEN POOLStart: 72-42-0045Zhsyjkqx screenLisa DenizStart: 98-67-9873Xggjq typing serologic aboKathleen E Pool Work Phone: Start: 12-95-4344Qpaykvjrm panelKathleen E Pool Work Phone: Start: 27-87-3516Cjftccxp hiv-1&hiv-2 single result Amaya E Pool Work Phone: Start: 43-63-3904Ohvc screen, qualitate/multiKathleen E Pool Work Phone: Start: 62-05-0132Ovkagsdjv c antibodyKathleen E Pool Work Phone: Start: 71-70-8349Tzbl ia chlamydia trachomatisKATHLEEN POOLStart: 24-18-9989Khovmr pap by maicol hawthorne md supvKATHLEEN POOLStart: 02-06-2019 Gonadotropin chorionic quantitativeKATHLEEN POOLStart: 25-29-8707Eodeafdcrqsc chorionic quantitativeKathleen E Pool MANAGING PARTNER - CNM Work Phone: Start: 20-76-7669Xovtsho quantitative blood xcpt reagent stripKATHLEEN POOLStart: 40-01-5705Xmpvmsy tolerance test gtt 3 specimensKATHLEEN POOLStart: 02-00-6300MDSGNSN, WHOLE BLOODKathleen E Pool Work Phone: Start: 29-63-4666Wbkvfkv tolerance test gtt 3 specimensKathleen E Pool Work Phone: Start: 26-93-0068VOITQUD, WHOLE BLOODKathleen E Pool Work Phone: Start: 69-80-5667Onvpw of blood/uric acidKathleen E Pool Work Phone: Start: 27-30-7854Pwayl count complete auto&auto difrntl wbcKathleen E Pool Work Phone: Start: 49-55-2204Hazsllajwvvib metabolic panelKathleen E Pool Work Phone: Start: 92-54-9012Ongbzgxtgj activityKathleen E Pool Work Phone: Start: 61-81-0250Ritkekl dehydrogenase ldhKathleen E Pool Work Phone: Start: 15-66-5901Wcgriwnhxpm timeKathleen E Pool Work Phone: Start: 38-49-3635Nusbjtotzamxfl time partial plasma/whole bloodKathleen E Pool Work Phone: Start: 68-91-8451Snni screen class list aKathleen E Pool Work Phone: Start: 52-14-7298Slqlx nonstress testSusan Lulu Fischer Work Phone: Start: 47-92-4814Ddpfn of blood/uric acidKathleen E Pool Work Phone: Start: 13-05-3999Hikws count complete auto&auto difrntl wbcKathleen E Pool Work Phone: Start: 40-03-4733Xhsmldjcpbots metabolic panelKathleen E Pool Work Phone: Start: 64-49-3050Fypmmxtndl activityKathleen E Pool Work Phone: Start: 89-15-0156RARUVNRK PLATELET FRACTIONKathleen E Pool Work Phone: Start: 92-02-0412Fydrdog dehydrogenase ldhKathleen E Pool Work Phone: Start: 32-88-8557Xismvkfisxo timeKathleen E Pool Work Phone: Start: 27-07-3920Astaxpvekgnccq time partial plasma/whole bloodKathleen E Pool Work Phone: Start: 59-91-9425Gfpbblg total xcpt refractometry urineKathleen E Pool Work Phone: Start: 43-59-9072Djbspjtyye microscopic onlyKathleen E Pool Work Phone: Start: 83-75-0453Luefq dip stick/tablet rgnt auto w/o microscopyKathleen E Pool Work Phone: Start: 77-62-3119Dxvez nonstress testKathleen E Pool Work Phone: Start: 12-50-0934Xzdhh count hemoglobinKathleen E Pool Work Phone: Start: 52-59-8236Wdiwp typing serologic rh (d)Amaya E Pool Work Phone: Start: 31-13-5794Rjkpscr tolerance test gtt 3 specimensKathleen E Pool Work Phone: Plan of Treatment DateCare ActivityDetailAuthorStart: 39-13-9265LPeU/Tdap/Td vaccine (3 - Td) DTaP/Tdap/Td vaccine (3 - Td)[facility]: 49-46-0076SLkL/Tdap/Td vaccine (9 - Td)DTaP/Tdap/Td vaccine (9 - Td)[facility]: 56-77-5214Wlrgbnznw for malignant neoplasm of cervixNOKS HealthcareNewry: 07-03-2634IXsK/Tdap/Td vaccine (2 - Td)DTaP/Tdap/Td vaccine (2 - Td)[facility]: 74-97-9711Ynjvppvza for malignant neoplasm of cervix Cervical cancer screenSt. [facility]'s Hospital: 10-08-2024 End: 13-29-5640Vyqqncd encounter procedureNOMS CWM FMComment on above:Morbid (severe) obesity due to excess calories ([facility]-HCC) (Primary Dx); Moderate anxiety; Major depressive disorder, single episode, moderate (HCC)Start: 08-13-2024 End: 53-20-5399Thkwsic encounter itkzxidsp10/23/2025 10:45 AM EDT Office Visit RISSA FAVIOLA [address] [place] [id number] Briana Gordon DO [address] [place] [address] RISSA LANNYtart: 96-67-9596Gdmohmv CultureAerobic Culture [facility] Hospitalt[facility]: 23-74-4545Jynutbklg CultureAnaerobic CultureMercy Health St. Elizabeth [facility] Hospitaltart: 02-61-6396AUH (PCR)CSF (PCR) [facility] Hospitaltart: 78-08-2053Csgnwvxmzci observation [Identifier] in Unspecified specimen by Gram stainMercy Health St. Elizabeth Boardman Hospitaltart: 42-39-5719TssnjfcqbMercy Health St. [facility] Hospitaltart: 07-27-[address] [facility] Hospitaltart: 07-27-[address] [facility]: 07-05-2024 End: 15-75-3028Berkhsp encounter procedureNOMS [facility] FMComment on above:Morbid (severe) obesity due to excess calories (CMS/HCC) (Primary Dx); Major depressive disorder, single episode, moderate (HCC) (CMS/HCC); Migraine without aura and without status migrainosus, not intractable (CMS/HCC); Moderate anxietyStart: 06-18-2024 End: 18-48-2592WPW Head vessels WO contrastMR venous head wo IV contrast Imaging Routine Idiopathic intracranial hypertension Expected: 06/18/2024, Expires: 06/18/2025NOKS HealthcareComment on above:Expected: 06/18/2024, Expires: 06/18/2025Start: 06-18-2024 End: 84-37-1203Kyoautvaium time (PT) in Blood by Coagulation assayProtime-INR Lab Routine Idiopathic intracranial hypertension Expected: 06/18/2024 (Approximate), Expires: 06/18/2025[facility] Work Phone: comment on above:Expected: 06/18/2024 (Approximate), Expires: 06/18/2025Start: 06-18-2024 End: 98-70-0868Idvylhy encounter procedureANA BELLEVUEComment on above:Migraine without aura and without status migrainosus, not intractable (CMS/HCC)Start: 05-09-2024 End: 90-21-8313Okeawzq encounter zdfvxupfu67/19/2025 9:40 AM EDT Office Visit [facility] [address] [place] [id number] Kika Guaman NP [address] [place] [address] NOMS DAY FMStart: 04-10-2024 End: 36-51-3984JR Brain WO contrastMR brain wo contrast Imaging Routine Migraine without aura and without status migrainosus, not intractable (CMS/HCC) Expected: 04/10/2024 (Approximate), Expires: 04/10/2025[facility] Work Phone: Comment on above:Expected: 04/10/2024 (Approximate), Expires: 04/10/2025Start: 04-10-2024 End: 96-53-7184Vpjuxft encounter fqehiaarg15/18/2025 9:00 AM EST Office Visit [facility] CWM FM [address] [place] [address] Kiak Guaman, SPECIAL EDUCATION SUPERINTENDENT [address] [place] [phone] NOMS CW FMStart: 2024 End: 92-83-0188Iiekeob encounter pemqwcwee86/09/2025 9:40 AM EST Office Visit [facility] CW FM [address] [place] [address] Kika Guaman, SPECIAL EDUCATION SUPERINTENDENT [address] [place] [phone] Major depressive disorder, single episode, moderate (HCC) (CMS/HCC) (Primary Dx); Morbid (severe) obesity due to excess calories (CMS/HCC) [facility] FMComment on above:Major depressive disorder, single episode, moderate (HCC) (CMS/HCC) (Primary Dx); Morbid (severe) obesity due to excess calories (CMS/HCC)Start: 02-06-2024 End: 08-29-3011Eerhmri encounter kpuhfljxz15/16/2024 9:20 AM EST Office Visit [facility] CW FM [address] [place] [address] Kika Guaman, SPECIAL EDUCATION SUPERINTENDENT [address] [place] [phone] NOMS CW FMStart: 72-35-6037Godrwrvfg vaccinationInfluenza Vaccine (#1)N[facility]S HealthcareComment on above:Postponed from 10/22/2022 (Patient Refused)Start: 04-20-2023 End: 50-13-3407Hyzjwxc encounter qtzvkxasn87/28/2024 8:40 AM EST Office Visit [facility] CWM FM [address] [place] [address] Kika Guaman, FELICIA [address] [place] [address] NOMS CWM FMStart: 55-04-2253Gskjdnay cancer screenCervical cancer screenTrinity Health Systemart: 77-63-0390Qvgkwfiqr for malignant neoplasm of cervixNOMS HealthcareStart: 10-16-2020 End: 50-95-3401Nsijsn Visit10/16/2020 Office Visit Obstetrics and Gynecology Amaya Russo APRN - PATRICK [address] [place] [address] [phone] [facility] OBSTETRICS & GYNECOLOGYStart: 01-21-2020 End: 78-25-1577Bnrjkkz Yntcujrc66/30/2020 Routine Obstetrics and Gynecology Amaya Russo APRN - PATRICK [address] [place] [address] [phone] [facility] OBSTETRICS & GYNECOLOGYStart: 01-16-2020 End: 24-39-7123Jhbnoehol Hmvxmiyge17/25/2020 Ancillary Procedure [facility]stetrics and Gynecology[facility] OBSTET[facility] & GYNECOLOGYStart: 12-22-2019 Creatinine measurementCreatinine [facility]: 12-22-2019 Creatinine monitoringCreatinine [facility], DCStart: 12-22-2019 Potassium monitoringPotassium monitoringTrinity Health Systemart: 12-05-2019 Creatinine monitoringCreatinine [facility], [facility]: 12-05-2019 Potassium monitoringPotassium [facility]art: 10-23-2019 Influenza vaccinationFlu vaccine (#1)[facility]: 02-26-2019 Influenza vaccinationFlu vaccine (#1)[place]: Postponed from 10/22/2018 (Not Indicated)Start: 02-08-2019 End: 18-50-5778iupxncmokn72/19/2019 Visit Obstetrics and Gynecology Amaya Russo MANAGING PARTNER - CNM [address] [address] [phone] [facility] OB/GYNStart: 02-05-2019 End: 74-40-3998Jorkbesslk Visit02/05/2019 Visit Obstetrics and Gynecology Amaya Russo MANAGING PARTNER - CN [address] [place] [address] [phone] [facility] OB/GYNStart: 01-25-2019 Varicella Vaccine (1 of 2 - 2-dose childhood series)Varicella Vaccine (1 of 2 - 2-dose childhood series)[facility] CenterLucien on above:Postponed from 1988 (Not Indicated)Start: 01-04-2019 End: 98-05-7618Vhijgfemek Visit01/04/2019 Visit Obstetrics and Gynecology [place] APRN - CN [address] [place] [address] [phone] [facility] OB/GYNStart: 12-25-2018 Influenza vaccinationFlu vaccine (#1)[facility] CenterLucien on above: Postponed from 10/22/2018 (Not Indicated)Start: 38-10-1828Uwzvxagjv Vaccine (1 of 2 - 13+ 2-dose series)Varicella Vaccine (1 of 2 - 13+ 2-dose series)[facility] CenterLucien on above:Postponed from 2000 (Not Indicated)Start: 12-21-2018 End: 00-08-3170Mfxhmfo Eypqojdx16/31/2019 Routine Obstetrics and Gynecology Amaya Russo MANAGING PARTNER - CNM [address] [place] [address] [phone] [facility] OB/GYNStart: 12-14-2018 End: 70-61-3488Ottjfvs Sfqbzwno57/24/2019 Routine Obstetrics and Gynecology Amaya Russo MANAGING PARTNER - CNM [address] [place] [address] [phone] [facility] OB/GYNStart: 11-06-2018 End: 79-67-9313Wwqjdtu Hmvulyku45/16/2019 Routine Obstetrics and Gynecology KaranAmaya [facility] [address] [place] [address] [phone] [facility] OB/GYNStart: 10-22-2018 Influenza vaccinationFlu vaccine (#1)[facility]: 2000 Varicella Vaccine (1 of 2 - 13+ 2-dose series)Varicella Vaccine (1 of 2 - 13+ 2- dose series)[facility]: 88-78-8878Qkuftidug vaccine (1 of 2 - 2- dose childhood series)Varicella vaccine (1 of 2 - 2-dose childhood series)[facility] Work Phone: bacteria identified in Unspecified specimen by Aerobe cultureRegional Medical CenterBacteria identified in Unspecified specimen by Anaerobe cultureRegional Medical Center End: 10-11-2019C.trachomatis N.gonorrhoeae DNA, Thin PrepC.trachomatis N.gonorrhoeae DNA, Thin Prep Microbiology Routine Screen for STD (sexually transmitted disease) 1 Occurrences starting 10/11/2019 until 10/11/2019[place], [place]1 Occurrences starting 10/11/2019 until 10/11/2019C.trachomatis N.gonorrhoeae DNA, Thin PrepC.trachomatis N.gonorrhoeae DNA, Thin Prep Microbiology Routine Screen for STD (sexually transmitted disease) 10/11/2019 12:16 PM [place] End: 01-02-2020C.trachomatis N.gonorrhoeae DNA, UrineC.trachomatis N.gonorrhoeae DNA, Urine Microbiology Routine Amenorrhea Positive urine test Encounter for supervision of other normal in first trimester 1 Occurrences starting 01/02/2020 until 01/02/2020[place], [place]:1 Occurrences starting 01/02/2020 until 01/02/2020C.trachomatis N.gonorrhoeae DNA, UrineC.trachomatis N.gonorrhoeae DNA, Urine Microbiology Routine Amenorrhea Positive urine test Encounter for supervision of other normal in first trimester 01/02/2020 4:57 PM [facility] CenterANDREWSCell count, cerebrospinal fluidRegional Medical Center End: 24-74-9119Iqzcaby, UrineCulture, Urine Microbiology Routine Amenorrhea Positive urine test Encounter for supervision of other normal in first trimester 1 Occurrences starting 01/02/2020 until 01/02/2020 [facility] CenterLucien on above:1 Occurrences starting 01/02/2020 until 01/02/2020Culture, UrineCulture, Urine Microbiology Routine Amenorrhea Positive urine test Encounter for supervision of other normal in first trimester 01/02/2020 4:57 PM MAYTESouthwest General Health CenterANDREWS End: 37-27-7048Bmgcaqsxsdpdf procedure, preparation of smear, genital sourcePAP SMEAR Lab Routine Encounter for well woman exam with routine gynecological exam 1 Occurrences starting 10/11/2019 until 10/11/2019[facility] CenterLucien on above:1 Occurrences starting 10/11/2019 until 10/11/2019Fetal nonstress test nonstress test OB Routine Daily until discontinued starting 12/06/2018, 1 completedChillicothe [facility] Isabella ProductsSAINT LOUIS UNIVERSITY HEALTH SCIENCE CENTERLucien on above:Daily until discontinued starting 12/06/2018, 1 completed End: 25-65-9209Cvxxc nonstress testFetal nonstress test OB Routine One Time for 1 Occurrences starting 12/04/2018 until 12/04/2018[facility] CenterLucien on above:One Time for 1 Occurrences starting 12/04/2018 until 12/04/2018 End: 09-53-8439EmB5i (Bld) [Mass fraction]Hemoglobin A1C Lab Routine Amenorrhea Positive urine test Encounter for supervision of other normal in first trimester 1 Occurrences starting 01/02/2020 until 01/02/2020 [facility] CenterLucien on above:1 Occurrences starting 01/02/2020 until 01/02/2020HbA1c (Bld) [Mass fraction]Hemoglobin A1C Lab Routine Amenorrhea Positive urine test Encounter for supervision of other normal in first trimester 01/02/2020 4:57 PM [facility] HospitalPay-MeSAINT LOU[facility] UNIVERSITY HEALTH SCIENCE CENTERANDREWS Meningitis+Encephalitis pathogens DNA and RNA panel - Cerebral spinal fluid by GERALDINE with non-probe detectionRegional Medical CenterNonrebreather mask oxygenNonrebreather mask oxygen Respiratory Care Routine As directed - RT (PRN) until discontinued starting 12/05/2018[place], [place]:As directed - RT (PRN) until discontinued starting 12/05/2018Patient Education [facility] Lumbar Puncture Discharge [facility] Work Phone: End: 97-76-8595ESMT GlucosePOCT Glucose Point of Care Testing Routine One Time for 1 Occurrences starting 12/22/2018 until 12/22/2018[place] Comment on above:One Time for 1 Occurrences starting 12/22/2018 until 12/22/2018 [facility] ANTEPARTUM Blood Bank Routine 27 weeks gestation of Rh negative state in antepartum period, third trimester 10/16/2018 7:08 PM [place], [place] POSTPARTUMRHLOS [facility] Blood Bank [employer] Label Print 12/22/2018 2:55 PM [place] End: 81-99-9120Oyldx B Screen, Vaginal / RectalStrep B Screen, Vaginal / Rectal Microbiology Routine 35 weeks gestation of 1 Occurrencesstarting 12/13/2018 until 12/13/2018[facility] DCComment on above:1 Occurrences starting 12/13/2018 until 12/13/2018Strep B Screen, Vaginal / RectalStrep B Screen, Vaginal / Rectal Microbiology Routine 35 weeks gestation of 12/13/2018 4:12 PM [place], [place] End: 09-32-1167AMVIJU Point of Care Testing Routine One Time for 1 Occurrences starting 12/05/2018 until 12/05/2018[facility] DCComment on above:One Time for 1 Occurrences starting 12/05/2018 until 12/05/2018XR Ankle - left GE 3 [facility] Immunizations Immunization DateImmunizationNotesCare CmeieawiAanrmabt28-42-4912jpqihdw toxoid, reduced diphtheria toxoid, and acellular pertussis vaccine, adsorbedKatMercy Health, LL62-54-7848gnmhdilpil, tetanus toxoids and acellular pertussis vaccine, unspecified formulationNorth Shore University Hospital, [place] 45-82-5686alngptx toxoid, reduced diphtheria toxoid, and acellular pertussis vaccine, [facility], QZ37-74-8929SAF(D) immune globulin [facility], JM87-50-8487nlwzsbh toxoid, reduced diphtheria toxoid, and acellular pertussis vaccine, adsorbedLisa Aichholz SPECIAL EDUCATION SUPERINTENDENT Work Phone: [facility] MedicineTeqjvebkni53-68-4049zxnabbr toxoid, adsorbedLisa Aichholz SPECIAL EDUCATION SUPERINTENDENT Work Phone: [facility] Sports MedicineLnhnrnxwdb69-77-5615gfzlfpf, mumps and rubella virus vaccineLisa Aichholz SPECIAL EDUCATION SUPERINTENDENT Work Phone: [facility] Sports MedicineSrvmycdcqc86-79-7130wpyxcerfju, tetanus toxoids and acellular pertussis vaccine, unspecified formulationLisa Aichholz SPECIAL EDUCATION SUPERINTENDENT Work Phone: [facility] Sports MedicineGbfkdvdffj56-95-5913bbrgwlawoy vaccine, unspecified formulationLisa Aichholz SPECIAL EDUCATION SUPERINTENDENT Work Phone: [phone] MedicineEwyckrkkjr05-78-7269woyvrlzevc, tetanus toxoids and acellular pertussis vaccine, unspecified formulationLisa Aichholz SPECIAL EDUCATION SUPERINTENDENT Work Phone: [facility] Sports MedicineDzfqxfjbtv23-46-2104dzxydxqwbld influenzae type b vaccine, conjugate unspecified formulationLisa Aichholz SPECIAL EDUCATION SUPERINTENDENT Work Phone: [facility] Sports MedicineRtlfoqirbd11-68-9003lyvjmqu, mumps and rubella virus vaccineLisa Aichholz SPECIAL EDUCATION SUPERINTENDENT Work Phone: [facility] MedicineSzidwenkpu60-39-6286wsedplkcbg, tetanus toxoids and pertussis vaccineLisa Aichholz SPECIAL EDUCATION SUPERINTENDENT Work Phone: [facility] Sports MedicineCkgnutrxms61-46-0177rzoprekwa poliovirus vaccine, live, oralLisa Aichholz SPECIAL EDUCATION SUPERINTENDENT Work Phone: [facility] Sports MedicineUehhthwysg36-18-6812tbsatjfjti, tetanus toxoids and acellular pertussis vaccine, unspecified formulationLisa Aichholz SPECIAL EDUCATION SUPERINTENDENT Work Phone: [facility] MedicineUmknqukfxr95-79-8128pfesukcdwy vaccine, unspecified formulationLisa Aichholz SPECIAL EDUCATION SUPERINTENDENT Work Phone: noMercy Hospital St. John'sXclqlrbgot74-51-2030vxviwccsgj, tetanus toxoids and acellular pertussis vaccine, unspecified formulationLisa Aichholz SPECIAL EDUCATION SUPERINTENDENT Work Phone: VAMercy Hospital St. John'sFhphhwacop96-16-6959djthjqeizo vaccine, unspecified formulationLisa Aichholz SPECIAL EDUCATION SUPERINTENDENT Work Phone: DFMercy Hospital St. John'sUdwzmslwxa74-18-7070akjnedwnrs, tetanus toxoids and acellular pertussis vaccine, unspecified formulationLisa Aichholz SPECIAL EDUCATION SUPERINTENDENT Work Phone: TRMercy Hospital St. John'sZudfslbzki83-91-5108cnrphbobkw vaccine, unspecified formulationLisa Aichholz SPECIAL EDUCATION SUPERINTENDENT Work Phone: [facility] Payers DatePayer CategoryPayerPolicy [id number] Health InsuranceUNITED HEALTHCARE [id number] Health [id number]'s [id number] Care HMO (unspecified) [id number] 2017MedicaidBU[place] MEDICAID [place] [id number] 2017-Present [address] [place] [id number] [facility] xxxxxxxxxxxx 2015-Present [phone] [facility] [address] [place], [place] [address]gocewfkiypky [id number].3.596[id number] 2.16.840.1.773883.3.57[id number] 2.16.840.1.065421.3.57[id number] 2.16.840.1.508381.3.57[id number] 2..840.1.393796.3.57[id number] 2.16.840.1.579548.3.57[id number] 2.16.840.1.992646.3.57[id number] 2.16.840.1.190220.3.57[id number] 2.16.840.1.498094.3.57[id number] 2.16.840.1.151195.3.57[id number] 2.16.840.1.882675.3.57[id number] 2.16.840.1.544313.3.579.2.90192-14-1715Tbzitai2084159 2.16.840.1.612555.3.57[id number] 2.16.840.1.215330.3.57[id number] 2.16.840.1.082042.3.579.[id number] 2.16.840.1.843497.3.579.2.383474-53-9880Duyfbia6184053 2.16.840.1.510655.3.579.2.385535-47-7290Strzwcy8167029 2.16.840.1.574881.3.579.2.[id number] 2..840.1.953444.3.57[id number] 2..840.1.106012.3.57[id number] 2.16.840.1.033046.3.579.2.523678-34-0770Wjgekoz Health [id number] 2.840.1.692416.9[id number] 1..840.043208.1.13.23[id number] 2.840.1.168[id number] 2.840.1.210485.3.579.2.531 Social History DateTypeDetailFacilityStart: 08-28-2018 End: 08-88-1765Afwyyzg smoking status NHISNever smokerGARFIELD MEMORIAL HOSPITAL HealthcareStart: 08-28-2018 End: 99-04-5399Fliemvm intakeNot CurrentlyGARFIELD MEMORIAL HOSPITAL HealthcareStart: 03-28-2014 Alcohol CommentrarelChicago, KYStart: 48-79-2599QpxyawdbYpgnj Health- [place], [place]Start: 07-46-7261Xgu Assigned At [facility] HospitalNot on joseSouthwest General Health CenterANDREWS Start: 10-11-2019 End: 79-06-4240Llgcunw use and exposureNever usedSouthwest General Health Center, ANDREWSStart: 01-04-2019 End: 70-76-0095Hfafgmu intakeEx-drinker (finding)[facility] CenterANDREWSExposure to SARS-CoV-2 (event)Not sureSouthwest General Health Center, KYStart: 03-23-2023 End: 75-17-0506Lqqsurt intakeLifetime non-drinker (finding)[facility] HealthcareStart: 02-22-2023 End: 38-89-0476Tfnauiu of Social functionNOMS HealthcareWithin the last year, have you been afraid of your partner or ex-partner?NoNOMS HealthcareStart: 77-82-5855Rmv often do you attend meetings of the clubs or organizations you belong to?Patient refusedNOMS HealthcareAre you now , , , , never or living with a partner?DivorcedNOMS HealthcareHow often to you have a drink containing alcohol?Monthly or lessNOMS HealthcareHow many standard drinks containing alcohol do you have on a typical day?1 or 2NOMS HealthcareHow often do you have 6 or more drinks on 1 occasion?Less than monthly [facility] HealthcareHow hard is it for you to pay for the very basics like food, housing, medical care, and heatingHardNOMS HealthcareDo you feel stress - tense, restless, nervous, or anxious, or unable to sleep at night because yourmind is troubled all the time - these days [OSQ]Very muchNOMS Healthcare(I/We) worried whether (my/our) food would run out before (I/we) got money to buy more.Often trueNOMS HealthcareIn the past 12 months, was there a time when you were not able to pay the mortgage or rent on time?YesNOMS HealthcareStart: 85-24-6509Ucv Assigned At [facility], AvonHow often do you have 6 or more drinks on 1 occasion?NeverNOMS HealthcareHow hard is it for you to pay for the very basics like food, housing, medical care, and heatingSomewhat hard [facility] HealthcareDo you feel stress - tense, restless, nervous, or anxious, or unable to sleep at night because yourmind is troubled all the time - these days [OSQ]Rather muchNOKS Healthcare(I/We) worried whether (my/our) food would run out before (I/we) got money to buy more.Sometimes trueFreeman Orthopaedics & Sports MedicineStart: 76-66-9768XebEqoawn (finding)[facility] Medical Equipment Procedure CodeEquipment CodeEquipment Original TextEquipment IdentifierDatesPt to test four times daily fastin, 2 hr [id number]: 10-18-2018 End: 12-23-20181 each by Other route 4 times daily One glucometer, test strips, lancets - per insurance [id number]: 10-18-2018 End: 64-92-4169pwb to test BLOOD SUGAR FOUR TIMES [id number]: 10-23-2018 End: 12-23-2018 Functional Status BaoeYkdytnaynhNneapvFjfnpzom85-33-8112Mtfva score [AUDIT-C]1 2024 9:32 AM EST Mychart, GenericFreeman Orthopaedics & Sports MedicineRjyxwzlrym90-45-1136Iia often do you have a drink containing alcohol?Monthly or less 2024 9:32 AM EST Mychart, Generic Monthly or lessNOMercy Hospital St. John'sJkqaxlfyyp41-58-8703Wkr many standard drinks containing alcohol do you have on a typical day?1 or 2 2024 9:32 AM EST Mychart, Generic 1 or 2NFreeman Heart InstituteHhqhsczkot18-21-9664Wmz often do you have 6 or more drinks on 1 occasion?Never 2024 9:32 AM EST Mychart, Generic NeverFreeman Orthopaedics & Sports Medicine 00-00-2507Ohpenyp Health Questionnaire 2 item (PHQ-2) [Reported][facility] 73-66-2816Nwp difficult have these problems made it for you to do your work, take care of things at home, or get along with other people?Not difficult at all 06/23/2023 10:19 AM Ramonita Oquendo MA Not difficult at allFreeman Orthopaedics & Sports Medicine Clinical Notes 12-10-2020 to 10-08-2024 Note Date & ZpwgZcqdVqmgnwhc69-65-6939 History of Present illness Narrative* Kika Guaman NP - 10/08/2024 9:31 AM EDTAssociated Problem(s): Migraine without aura and without status migrainosus, not intractable Trialed: nsaids, imitrex, ubrelvey, topamax CT head: 04/05/23: normal Current meds: Jerod Has seen dr gordon, had a lumbar puncture to evaluate for ICH Is on diamox Cont fu with them, also talk to neuro about back pain that occurred with LBP * Kika Guaman NP - 10/08/2024 9:30 AM EDTAssociated Problem(s): Chronic pain of left knee Will trial the brace prn and if worsening will contact office * RAMONITA GODWIN - 10/08/2024 9:00 AM EDT Lower back pain- typically ranges at a 5 on the pain scale but pain increases 8- 9 by the time she gets off work. Left knee is starting to pop and crack- pt has been using knee brace for support at work * Kika Guaman NP - 10/08/2024 9:00 AM EDT Robles Yen is a 39 y.o. female presents with chief complaint of Anxiety HPI: Wegovy: is doing well with weight loss, does have NV, but this appears to be related to the addition of her diamox for her ICHTN, she has a fu appt with neurology in 12/15, she feels the diamox givesher change in her taste buds, and has not helped her GARCIA at all. She does miss work freq d/t GARCIA's and sxs. Has been on the diamox for approx 2 months in which she did not have the taste issue or NV prior totaking this medication Low back pain; from mid back to tail bone ever since her LP. Constant, increases with standing prolonged at work, at end of shift 8-9/10. Sharp pain, occ tingling left 5th toe, but otherwise no. No weakness in legs and no loss of bowel or bladder function noted Left knee: grinding knee pain (throbbing medial aspect), and popping sound, no instability, does feel like it catches from time to time. Bought an [employer] Approach brace with patellar support which is helping Mental health combo is good, no SI/HI SUBJECTIVE: MEDICATIONS: Current Outpatient Medications Medication Instructions acetaZOLAMIDE (DIAMOX) 250 mg, 2 times daily FLUoxetine (PROZAC) 20 mg, Oral, Daily hydrOXYzine pamoate (Vistaril) 25 MG capsule norethindrone ac-eth estradio (Lorelei 1.530) 1.5-30 MG-MCG tablet tablet 1 tablet, Oral, Daily MV & Min w/FA-DHA ( Gummies) 0.18-25 MG chewable tablet Qulipta 60 mg, Oral, Daily valACYclovir (VALTREX) 500 mg, Daily Wegovy 2.4 mg, Every 7 days ALLERGIES: No Known Allergies [...] SURGERY Left 2017 LT KNEE SCOPE- STEPANIC MA HAND/FINGER SURGERY UNLISTED Right 2002 thumb family history includes Anemia in her sister; Multiple sclerosis in her father; Other in her father; Thyroid disease in her cousin and maternal grandmother. OBJECTIVE: Visit Vitals BP 118/78 (BP Location: Left arm, Patient Position: Sitting, BP Cuff Size: Adult long) Pulse 87 Temp 98.5 F (Temporal) Resp 18 Wt 167 lb 12.8 oz SpO2 97% BMI 29.72 kg/m OB Status Having periods Smoking Status Never BSA 1.84 m Physical Exam Vitals and nursing note reviewed. Constitutional: General: She is not in acute distress. Appearance: Normal appearance. HENT: Head: Normocephalic and atraumatic. Right Ear: External ear normal. Left Ear: External ear normal. Nose: Nose normal. Mouth/Throat: Mouth: Mucous membranes are moist. Eyes: Extraocular Movements: Extraocular movements intact. Conjunctiva/sclera: Conjunctivae normal. Neck: Vascular: No carotid bruit. Cardiovascular: Rate and Rhythm: Normal rate and regular rhythm. Pulses: Normal pulses. Heart sounds: Normal heart sounds. Pulmonary: Effort: Pulmonary effort is normal. Breath sounds: Normal breath sounds. Abdominal: General: Bowel sounds are normal. There is no distension. Palpations: Abdomen is soft. There is no mass. Tenderness: There is no abdominal tenderness. Musculoskeletal: General: Normal range of motion. Cervical back: Normal range of motion and neck supple. Right lower leg: No edema. Left lower leg: No edema. Skin: General: Skin is warm and dry. [...] aura and without status migrainosus, not intractable Trialed: nsaids, imitrex, ubrelvey, topamax CT head: 04/05/23: normal Current meds: Jerod Has seen dr gordon, had a lumbar puncture to evaluate for ICH Is on diamox Cont fu with them, also talk to neuro about back pain that occurred with LBP Morbid (severe) obesity due to excess calories ([facility]) - Primary Discussed with patient their BMI (actual, verses recommended). We have also discussed lifestyle modifications: attempts to perform physical activity as chronic conditions allow, also to monitor dietary intake: increasing protein/fruits/veggies and lowering carb intake (unless contraindicated). Limit sodas, juices, and sugary drinks. Is prescribed Wegovy at max dose Has lost approx 30 pounds, starting 03/17 Relevant Medications Semaglutide-Weight Management (Wegovy) 2.4 MG/0.75ML solution auto-injector Moderate anxiety Current med: fluoxetine prn meclizine No dose changes needed Major depressive disorder, single episode, moderate (HCC) Current med: fluoxetine, meclizine prn No changes in meds at this time Chronic pain of left knee Will trial the brace prn and if worsening will contact office * Kika Guaman NP - 10/08/2024 6:25 AM EDTAssociated Problem(s): Major depressive disorder, single episode, moderate (HCC) Current med: fluoxetine, meclizine prn No changes in meds at this time * Kika Guaman NP - 10/08/2024 6:25 AM EDTAssociated Problem(s): Moderate anxiety Current med: fluoxetine prn meclizine No dose changes needed * Kika Guaman NP - 10/08/2024 6:25 AM EDTAssociated Problem(s): Morbid (severe) obesity due to excess calories ([facility]) Discussed with patient their BMI (actual, verses recommended). We have also discussed lifestyle modifications: attempts to perform physical activity as chronic conditions allow, also to monitor dietary intake: increasing protein/fruits/veggies and lowering carb intake (unless contraindicated). Limit sodas, juices, and sugary drinks. Is prescribed Wegovy at max dose Has lost approx 30 pounds, starting 03/17 documented in this encounterFreeman Orthopaedics & Sports [id number] Evaluation note* Diagnosis Onset Date Resolution Status Admit Date Chronic headaches acuteJune 2024 8:00am [facility] Work Phone: [phone] History of Present illness Narrative* Kika Guaman NP - 07/05/2024 9:20 AM EDT Images from the original note were not included. Robles Yen is a 39 y.o. female presents with chief complaint of No chief complaint on file. HPI: Here for recheck of depression and anxiety, at last appt changed over to fluoxetine. She feels thisis working better for her, her CAYLA 7 score is improved, no acute depression sxs. Does not feel needs any dose adjustment No improvement with her GARCIA;s, does report that she has seen Neurology and getting a lumbar punctureas well as further testing Waiting on [facility] to call to schedule this Was recently in ER for severe GARCIA She has also requested FMLA papers for her migraine, those were completed as well Is currently on Wegovy 1.7mg no unwanted side effects from this medication SUBJECTIVE: MEDICATIONS: Current Outpatient Medications Medication Instructions FLUoxetine (PROZAC) 20 mg, Oral, Daily hydrOXYzine pamoate (Vistaril) 25 MG capsule norethindrone ac-eth estradio (Lorelei ) 1.5-30 MG-MCG tablet tablet 1 tablet, Oral, Daily MV & Min w/FA-DHA ( Gummies) 0.18-25 MG chewable tablet Qulipta 60 mg, Oral, Daily ALLERGIES: No Known Allergies REVIEW OF SYMPTOMS: [...] Neurological: Positive for headaches. Negative for dizziness, tremors, seizures and syncope. Psychiatric/Behavioral: Negative for behavioral problems, self-injury and [...] KNEE SURGERY Right 2009 Arthroscopy knee, Dr. Densi KNEE SURGERY Left 2017 LT KNEE SCOPE- STEPANIC MA HAND/FINGER SURGERY UNLISTED Right 2002 thumb family history includes Anemia in her sister; Multiple sclerosis in her father; Other in her father; Thyroid disease in her cousin and maternal grandmother. OBJECTIVE: Visit Vitals OB Status Having periods Smoking Status Never Physical Exam Vitals and nursing note reviewed. [...] is normal. Breath sounds: Normal breath sounds. Abdominal: General: Bowel sounds are normal. There is no distension. Palpations: Abdomen is soft. There is no mass. Tenderness: There is no abdominal tenderness. Musculoskeletal: General: Normal range of motion. Cervical back: Normal range of motion and neck supple. Skin: General: Skin is warm and dry. [...] normal Current meds: Jerod Has seen dr gordon, going to have a lumbar puncture to evaluate for ICH FMLA paper work is completed Continue with neurology Relevant Medications Atogepant (Qulipta) 60 MG tablet Morbid (severe) obesity due to excess calories (CMS/HCC) - Primary Discussed with patient their BMI (actual, verses recommended). We have also discussed lifestyle modifications: attempts to perform physical activity as chronic conditions allow, also to monitor dietary intake: increasing protein/fruits/veggies and lowering carb intake (unless contraindicated). Limit sodas, juices, and sugary drinks. Is prescribed Wegovy, will increase to max dose Relevant Medications Semaglutide-Weight Management (Wegovy) 2.4 MG/0.75ML solution auto-injector Moderate anxiety Current med: fluoxetine CAYLA 7=7 Much improved No dose change Fu in 3 months Relevant Medications FLUoxetine (PROzac) 20 MG capsule Major depressive disorder, single episode, moderate (HCC) (CMS/HCC) Current med: fluoxetine PHQ 9=12 Feels good, no dose change Fu in 3 months Relevant Medications FLUoxetine (PROzac) 20 MG capsule * Kika Guaman NP - 07/05/2024 6:18 AM EDTAssociated Problem(s): Moderate anxiety Current med: fluoxetine CAYLA 7=7 Much improved No dose change Fu in 3 months * Kika Guaman NP - 07/05/2024 6:18 AM EDTAssociated Problem(s): Migraine without aura and without status migrainosus, not intractable (CMS/HCC) Trialed: nsaids, imitrex, ubrelvey, topamax CT head: 04/05/23: normal Current meds: Jerod Has seen dr gordon, going to have a lumbar puncture to evaluate for ICH FMLA paper work is completed Continue with neurology * Kika Guaman NP - 07/05/2024 6:17 AM EDTAssociated Problem(s): Major depressive disorder, single episode, moderate (HCC) (CMS/HCC) Current med: fluoxetine PHQ 9=12 Feels good, no dose change Fu in 3 months * Kika Guaman NP - 07/05/2024 6:16 AM EDTAssociated Problem(s): Morbid (severe) obesity due to excess calories (CMS/HCC) Discussed with patient their BMI (actual, verses recommended). We have also discussed lifestyle modifications: attempts to perform physical activity as chronic conditions allow, also to monitor dietary intake: increasing protein/fruits/veggies and lowering carb intake (unless contraindicated). Limit sodas, juices, and sugary drinks. Is prescribed Wegovy, will increase to max dose documented in this [facility]05-15-2025 Instructions* Patient Instructions* Kika Guaman NP - 07/05/2024 9:20 AM EDT No dose change in the fluoxetine We will increase dose on wegovy to 2.4mg documented in this [facility]04-28-2025 History of Present illness Narrative* Briana Gordon, - 06/18/2024 12:30 PM EDT Images from the original note were not included. Chief complaint: Headaches Subjective Robles Yen, 39 y.o., female The pt presents today for a neurological consultation at the request of Dr. Hinojosa for Migraines. She was seen at [facility] for migraines and and MRI was completed. She notes that migraines have been present her entire life. Has worsened over time. She notes that it tends to affect her entire left side of her head, always starting behind her eye. She states that she is on Qulipta from her PCP and it did help in the beginning, now seems as if its not doing anything. She reports 5-6 migraines in a months time. Admits to sound sensitivity. Admits nausea and vomiting. She has a migraine mask that doestend to help ease sx. Review of Systems Constitutional: Negative for appetite change, fatigue and fever. Respiratory: Negative for cough, shortness of breath and wheezing. Cardiovascular: Negative for chest pain, palpitations and leg swelling. Gastrointestinal: Negative for abdominal pain, constipation, diarrhea and nausea. Musculoskeletal: Negative for arthralgias, gait problem and myalgias. Neurological: Positive for headaches. Negative for dizziness, tremors and numbness. Past Medical History: Diagnosis Date Abnormal results of thyroid function studies Fatigue 04/20/2023 Posterior left knee pain 04/20/2023 Status post bilateral salpingectomy 04/20/2023 Past Surgical History: Procedure Laterality Date APPENDECTOMY 08/2007 CHOLECYSTECTOMY 2014 KNEE ARTHROSCOPY W/ MENISCECTOMY Left 07/16/2022 STEPANIC KNEE SURGERY Right 2009 Arthroscopy knee, Dr. Denis KNEE SURGERY Left 2017 LT KNEE SCOPE- STEPANIC MA HAND/FINGER SURGERY UNLISTED Right 2002 thumb Family History Problem Relation Name Age of Onset Other (Other) Father Visibly impaired Multiple sclerosis Father Anemia Sister Thyroid disease Maternal Grandmother Thyroid disease Cousin Social History Tobacco Use Smoking status: Never Smokeless tobacco: Not on file Substance Use Topics Alcohol use: Never Allergies: Patient has no known allergies. Vitals: 06/18/24 1227 BP: 122/84 Body mass index is 34.72 kg/m . Weight: 196 lb Neurologic exam: Mental status: Awake, alert to person, place and time. Recent and remote memory are intact. Language is fluent without aphasia. Attention and concentration are normal. Fund of knowledge is appropriate for level of education. Cranial nerves: CN II: Visual acuity is normal. Visual liao full to confrontation. CN III, IV, : pupils equal round and reactive to light. Extraocular movements intact. No ptosis present. CN V: Facial sensation is normal. CN VII: Full and symmetric facial movement. CN VIII: Hearing is normal to finger rub bilaterally: CN IX and X: Palate elevates symmetrically. CN XI: Shoulder shrug is normal bilaterally. CN XII: Tongue is midline without atrophy or fasciculation. Motor: RUE Strength deltoid, , biceps , triceps , wrist extensors , wrist flexor , linux network systems administrator strength 5/5. LUE Strength deltoid , biceps , triceps , wrist extensors , wrist flexor , linux network systems administrator strength 5/5. RLE Strength illopsoas, quadriceps, tibialis anterior, and gastrocnemius strength 5/5. LLE Strength illopsoas, quadriceps, tibialis anterior, and gastrocnemius strength 5/5. Normal tone x4 extremities. Bulk is normal. Sensory: Sensation is intact to light touch throughout Four extremities. Reflexes: RUE biceps reflex 2+ brachioradialis reflex 2+ . LUE biceps reflex 2+ brachioradialis reflex 2+ . RLE knee reflex 2+ . LLE knee reflex 2+ . Linares's sign negative. Coordination: [id number] testing and rapid alternating movements are normal Gait: Normal Review and summary of old records: CT of the brain without contrast on 04/05/2023: Unremarkable MRI of the brain without contrast on 04/16/2024: Mild chronic sinusitis. Question of findings related to idiopathic intracranial hypertension. Assessment/Plan Diagnoses and all orders for this visit: Idiopathic intracranial hypertension It is my impression that the patient has a longstanding history of headaches. These headaches seem to be worsening recently. The patient does note that occasionally when she lays down the headaches can worsen and she also does notice some visual obscurations with associated with her headaches. CT scan of the brain was unremarkable last year. However, in March 2024, she did have an MRI of the brain which noted questionable findings related to idiopathic intracranial hypertension. Her BMI is approximately 35 and certainly this could be consistent with idiopathic intracranial hypertension. Plan: Lumbar puncture in the lateral decubitus position to measure opening pressure If elevated, the patient would benefit from treatment with medication options such as Diamox INR prior to lumbar puncture to confirm safety procedure MR venogram of the head without contrast to exclude intracranial venous clot associated with the elevated pressure Risks and benefits of the procedure were discussed in detail. Patient understands risks including but not limited to infection, epidural hematoma, post lumbar puncture headache, lower extremity weakness and paralysis. Patient understands these and wishes to proceed. Pt has been fully educated on their diagnosis, lab results, treatment options, follow up plan, and return instructions documented in this encounterFreeman Orthopaedics & Sports [id number] History of Present illness Narrative* Kika Guaman NP - 04/10/2024 9:35 AM ESTAssociated Problem(s): Acute non-recurrent maxillary sinusitis Fluids, rest Atb, fu if not better * RAMONITA GODWIN - 04/10/2024 9:00 AM EST Sinus issues that started Thday evening. Symptoms include: sore throat, neck stiffness, slight cough, migraine, left side sinus pressure, tender neck glands, light headed, vertigo feeling, stuffy nose. Pt states the qulipta was helpful- she took with onset of migraine and took migraine completely away. Pt states she does not feel as tired with the wegovy * Kika Guaman NP - 04/10/2024 9:00 AM EST Images from the original note were not [...] or panic attack norethindrone ac-eth estradio (Lorelei ) 1.5-30 MG-MCG [...] SURGERY Left 2017 LT KNEE SCOPE- STEPANIC MA HAND/FINGER SURGERY UNLISTED Right 2002 thumb family [...] trialed some qulipta No MRI brain at [facility] Qulipta did help Relevant Medications Atogepant (Qulipta) [...] Semaglutide-Weight Management (Wegovy) 0.5 MG/0.5ML solution auto-injector * Kika Guaman NP - 04/10/2024 6:24 AM ESTAssociated Problem(s): Migraine without aura and without status migrainosus, not intractable (CMS/HCC) Trialed: nsaids, imitrex, ubrelvey, topamax CT head: 04/05/23: normal Last appt trialed some qulipta No MRI brain at [facility] Qulipta did help, will continue Order MRI brain without * Kika Guaman NP - 04/10/2024 6:24 AM ESTAssociated Problem(s): Morbid (severe) obesity due to excess [...] in new script 1mg documented in this encounterFreeman Orthopaedics & Sports [id number] Instructions* Patient Instructions* Kika Guaman NP - 04/10/2024 9:00 AM EST Sinus: finish atb, fluids, rest fu if not better GARCIA: qulipta 60mg daily, will try to get MRI approved for [facility] Weight loss; after finished with 0.5mg wegovy, increase in 1mg documented in this [facility]01-28-2025 Telephone encounter Note* Telephone Encounter - Kika Guaman NP - 03/20/2024 10:24 AM EST Please call to schedule pt a well women examination please [place] [facility] [id number] Miscellaneous Notes* Telephone Encounter - Kika Guaman NP - 03/20/2024 10:24 AM EST Please call to schedule pt a well women examination please [place] documented in this [facility]01-09-2025 History of Present illness Narrative* Kika Guaman NP - 2024 11:31 AM ESTAssociated Problem(s): Moderate anxiety Current medication sertraline at 75mg daily Follow with mental health * Kika Guaman NP - 2024 11:30 AM ESTAssociated Problem(s): Major depressive disorder, single episode, moderate (HCC) (CMS/HCC) Is currently taking sertraline for this, tolerating well * Kika Guaman NP - 2024 10:41 AM ESTAssociated Problem(s): Migraine without aura and without status migrainosus, not intractable (CMS/HCC) Trial sample of qulipta 60 mg daily #2 samples, lot [id number], exp 11/16 Trialed: nsaids, imitrex, ubrelvey, topamax CT head: 04/05/23: normal MRI brain: reports has had one in the last year or so, will attempt to track down. Left message [facility] radiology for MRI report * RAMONITA GODWIN - 2024 9:40 AM EST [facility]. Pt is still having migraines- currently having one in the last two days behind left eye * Kika Guaman NP - 2024 9:40 AM EST Images from the original note were not [...] Not able to get insurance coverage for [employer] Control, ultimately went back to [place] [facility] around 12/14, she isup to max dose on Saxenda, no significant changes in her appetite, but still no weight loss, infactis 3 pounds heavier. Is trying to stick [...] MG/3ML solution pen-injector Start with 0.6mg daily for7 days, every 7 days increase the dose [...] SURGERY Left 2017 LT KNEE SCOPE- STEPANIC MA HAND/FINGER SURGERY UNLISTED Right 2002 thumb family [...] qulipta 60 mg daily #2 samples, lot [id number], exp 11/16 Trialed: nsaids, imitrex, ubrelvey, topamax CT head: 04/05/23: normal MRI brain: reports has had one in the last year or so, will attempt to track down. Left message [facility] radiology for MRI report Morbid (severe) obesity [...] currently taking sertraline for this, tolerating well * Kika Guaman NP - 2024 6:36 AM ESTAssociated Problem(s): Morbid (severe) obesity due to excess [...] we will try again documented in this encounterFreeman Orthopaedics & Sports [id number] Instructions* Patient Instructions* Kika Guaman NP - 2024 9:40 AM EST I will try to re submit wegovy to insurance, if approved we will have to stop saxenda and start that Migraines: Qulipta 60mg daily, for migraine headaches documented in this encounterFreeman Orthopaedics & Sports [id number] Telephone encounter Note* Telephone Encounter - Kika Guaman NP - 01/21/2024 4:40 PM EST I did speak to pt, only symptom is cough, no sinus pressure or nasal drainage. Has tried OTC Nyquilas well as tylenol cough/cold Will send in tessalon script [facility] [id number] Miscellaneous Notes* Telephone Encounter - Kika Guaman NP - 01/21/2024 4:40 PM EST I did speak to pt, only symptom is cough, no sinus pressure or nasal drainage. Has tried OTC Nyquilas well as tylenol cough/cold Will send in tessalon script documented in this encounterFreeman Orthopaedics & Sports [id number] History of Present illness Narrative* Kika Guaman NP - 11/09/2023 2:25 PM EDTAssociated Problem(s): Moderate major depression (CMS/HCC) Follow with mental health * Kika Guaman NP - 11/09/2023 2:25 PM EDTAssociated Problem(s): Moderate anxiety Follow with mental health * Kiak Guaman NP - 11/09/2023 2:25 PM EDTAssociated Problem(s): Morbid (severe) obesity due to excess calories (CMS/HCC) Still working to get saxenda * Kika Guaman NP - 11/09/2023 2:24 PM EDTAssociated Problem(s): Dysmenorrhea Refill BCP * RAMONITA GODWIN - 11/09/2023 1:40 PM EDT Pt has lost 12lbs since last visit, not intentional, it has been due to under stress. Lorelei control now needs to be a 90 day supply per insurance request * Kika Schustertammieyoni, SPECIAL EDUCATION SUPERINTENDENT - 11/09/2023 1:40 PM EDT Images from the original note were not [...] needed for insomnia or panic attack Lorelei .07/20 1.5-30 MG-MCG tablet tablet 1 tablet, Oral, Daily Liraglutide -Weight Management (Saxenda) 18 MG/3ML solution pen-injector Start with 0.6mg daily for7 days, every 7 days increase the dose [...] SURGERY Left 2017 LT KNEE SCOPE- STEPANIC MA HAND/FINGER SURGERY UNLISTED Right 2002 thumb family [...] excess calories (CMS/HCC) Still working to get [employer] Moderate anxiety Follow with mental health Moderate major depression (CMS/HCC) Follow with mental health documented in this encounterFreeman Orthopaedics & Sports [id number] Evaluation note* Encounter Date Diagnosis Assessment Notes Treatment Notes Treatment Clinical Notes May, Viral URI with cough (ICD-10 - J 06.9) Discussed diagnosis with patient. Will hold off on testing at this time. Will send in rx of Bromfedand Flonase to use as directed. Supportive care [...] provided x 1 day, no extension allowed [employer] Other 11-24-2021 Evaluation note* Encounter Date Diagnosis Assessment Notes Treatment Notes Treatment Clinical Notes Dec, Encounter for screening for othe r viral diseases (ICD-10 - Z11.59) Dec,Other Additional time spent conducting pre-visit phone call, screening for symptoms, instructions on social distancing, application and removal of PPE, and cleaning of examination room, equipment and supplies was preformed. Patient education given for testing methodology and results. Patient care instructions given in writting by [facility] document. [employer] [facility] Other 10-20-2021 Evaluation note* Encounter Date Diagnosis Assessment Notes Treatment Notes Treatment Clinical Notes Nov, Contact with and (ortega spected) exposure to other viral communicable diseases (ICD-10 - Z20.828) Nov,cute sinusitis, recurrence not specified, unspecified location (ICD-10 - J01.90) Nov,Other Additional time spent conducting pre-visit phone call, screening for symptoms, instructions on social distancing, application and removal of PPE, and cleaning of examination room, equipment and supplies was preformed. Patient education given for testing methodology and results. Patient care instructions given in writting by [facility] document. [employer] [facility] Other Chief complaint+Reason for visit Narrative* Chief Complaint throat pain Reason for Visit Contact with and (ortega spected) exposure to covid-19 Sore throat [facility] Work Phone: Evaluation note* Diagnosis Irregular menses Irregular menstrual cycle Possible , not yet confirmed examination or test, unconfirmed documented in this encounter [facility] [employer] Work Phone: evaluation note* Diagnosis Onset Date Resolution Status Contact with and (suspected) exposure to covid-19 acuteSore throatacute [facility] Work Phone: Evaluation note* Diagnosis Onset Date Resolution Status Contact with and (suspected) exposure to covid-19 acuteCOVID-19acuteSore throatacuteStreptococcal pharyngitisacuteInfluenza A (H1N1)noneactive [facility] Work Phone: Evaluation note* Diagnosis Onset Date Resolution Status Contact with and (suspected) exposure to covid-19 acuteCOVID-19acuteSore throatacuteStreptococcal pharyngitisacuteInfluenza A (H1N1)noneactiveInjurynoneactive [facility] Work Phone: Evaluation note* Diagnosis Onset Date Resolution Status Contact with and (suspected) exposure to covid-19 acuteCOVID-19acuteSore throatacuteStreptococcal pharyngitisacuteInfluenza A (H1N1)noneactiveInjurynoneactiveLeft ankle sprainnoneactive [facility] Work Phone: Evaluation note* Diagnosis Migraine [...] infection, unspecified Dysmenorrhea documented in this encounter [facility] HealthcareEvaluation note* Diagnosis Migraine without aura [...] (CMS/HCC) BMI 35.0-35.9,adult documented in this encounter [facility]* [...] infection symptoms documented in this encounter [facility]* [...] anxiety Chronic fatigue Other malaise and fatigue Idiopathic intracranial hypertension- Primary Benign intracranial hypertension documented in this encounter [facility] HealthcareEvaluation note* Diagnosis Migraine without aura [...] anxiety Chronic fatigue Other malaise and fatigue Moderate anxiety- Primary Morbid (severe) obesity due to excess calories (CMS/HCC) Major depressive disorder, single episode, moderate (HCC) (CMS/HCC) Major depressive disorder, single episode, moderate Migraine without aura and without status migrainosus, not intractable (CMS/HCC) documented [facility] encounter [facility]* Diagnosis Migraine without aura and without status migrainosus, not intractable- Primary Class 1 obesity due to excess [...] of previously prescribed contraceptive pill Anxiety and depression- Primary Sprain of left ankle, unspecified ligament, sequela Class 2 obesity due to excess calories without serious comorbidity with body mass index (BMI) of 36.0 to 36.9 in adult Anxiety and depression- Primary Morbid (severe) obesity due to excess calories (CMS-HCC) Osteoarthritis of knee, unspecified Body mass index (BMI) 36.0-36.9, adult Moderate anxiety- Primary Dysmenorrhea Morbid (severe) obesity due to excess calories (CMS-HCC) Moderate major depression (HCC) Major depressive disorder, single episode, moderate Migraine without aura and without status migrainosus, not intractable- Primary Major depressive disorder, single episode, moderate (HCC) Major depressive disorder, single episode, moderate Morbid (severe) obesity due to excess calories (CMS-HCC) Moderate anxiety Acute non-recurrent maxillary sinusitis- Primary Morbid (severe) obesity due to excess calories (CMS-HCC) Migraine without aura and without status migrainosus, not intractable BMI 35.0-35.9,adult Migraine without aura and without status migrainosus, not intractable- Primary Morbid (severe) obesity due to excess calories (CMS-HCC) BMI 35.0-35.9,adult Major depressive disorder, single episode, moderate (HCC) Major depressive disorder, single episode, moderate Moderate anxiety Chronic fatigue Other malaise and fatigue Moderate anxiety- Primary Morbid (severe) obesity due to excess calories (CMS-HCC) Major depressive disorder, single episode, moderate (HCC) Major depressive disorder, single episode, moderate Migraine without aura and without status migrainosus, not intractable Moderate anxiety- Primary Morbid (severe) obesity due to excess calories (CMS-HCC) Major depressive disorder, single episode, moderate (HCC) Major depressive disorder, single episode, moderate Chronic pain of left knee Migraine without aura and without status migrainosus, not intractable documented in this encounter [facility]* Diagnosis Onset Date Resolution Status Admit Date Idiopathic intracranial hypertension acuteOctober 2024 3:06pm [facility] Work Phone: Hisbybf general Narrative - Reported* Type Description Date Surgical History laparoscopy Knees Right and Lef t Hospitalization HistoryChildbirth Natural x4 [facility] Other Hissmas general Narrative - Reported* Type Description Date Medical History herpes Surgical Historylaparoscopy Knees Right and LeftSurgical Historycholecystectomy Surgical HistoryappendectomySurgical Historyright thumb\Hospitalization History Childbirth Natural x4 [facility] Other Reason for referral (narrative)No reason for referral information availableBrown [facility] Work Phone: Rechzi for visit Narrative* Consultation (Routine) - ClosedSpecialtyDiagnoses / ProceduresReferred By ContactReferred To Contact Neurology Diagnoses Migraine without aura and without status migrainosus, not intractable (CMS/HCC) Procedures MA OFFICE/OUTPATIENT [facility] 60 MINUTES Kika Guaman NP [address] [place] [address] Phone: tel: fax: Briana Gordon, [address] [place] [address] Phone: tel: fax: Referral IDStatusReasonStart DateExpiration DateVisits RequestedVisits [id number] Consult and Treat / [facility] Healthcare Assessments Diagnosis 27 weeks gestation of state, [...] Diagnosis Gestational diabetes mellitus (GDM), Advance Directives TypeDate RecordedPatient RepresentativeExplanationAdvance Directives and Living WillPower of AttorneyCode StatusDate ActivatedDate InactivatedCommentsFull Code 02/09/2016 6:49 PM02/11/2016 3:58 PMFull Code02/09/2016 8:36 AM02/09/2016 6:49 PMFull Code12/06/2014 11:49 AM12/06/2014 6:31 PMCode StatusDate ActivatedDate InactivatedCommentsFull Code12/05/2018 11:33 PMFull Code02/09/2016 6:49 PM 02/11/2016 3:58 PMCode StatusDate ActivatedDate InactivatedCommentsFull Code 12/05/2018 11:33 12/06/2018 3:01 AMTypeDate RecordedPatient Cable Reeler ExplanationACP-Advance DirectiveACP-Power of AttorneyCode StatusDate Activated Date InactivatedCommentsFull Code12/22/2018 3:25 AM12/23/2018 5:13 PMFull Code 12/21/2018 3:33 PM12/22/2018 3:25 AMFull Code12/05/2018 11:33 12/06/2018 3:01 AMCode StatusDate ActivatedDate InactivatedCommentsFull Code12/22/2018 3:25 AM Advance Directive Response Recorded Date/ Time Advance Directives Yes March 4:11pm Advance Directive Response Recorded Date/ Time Advance Directives Yes March 5:11pm Advance Directive Response Recorded Date/ Time Advance Directives Yes July 23 1:23pm Discharge Instructions * Instructions* Alondra Flores, RN - 12/06/2018 OUTPATIENT DISCHARGE Jennifer Calvert [facility] [place] or [address]lu[address] Dr. Galan Freya Husain [facility] Anahy Timoteo [facility] Dr. Mira Hagen Freya Conde [facility] ACTIVITY LIMITATIONS: ( z )Up and [...] Follow-up with your OB doctor as specified. [facility] OB Department phone: Dr. Danis Russo [facility] Dr. Pete Fischer [address] or [place] DIET Eat a well balanced diet focusing on foods high in fiber and protein. Drink plenty of fluids especially water. To avoid constipation you may take a mild stool softener as recommended by your doctor or artillery or naval gunfire observer. ACTIVITY Gradually increase your activity. Resume exercise regimen only after advice by your doctor or artillery or naval gunfire observer. Avoid lifting anything heavier than a gallon of milk for SIX weeks. Avoid driving until your doctor or artillery or naval gunfire observer has given their approval. Rise slowly from [...] medications as recommended by your doctor or artillery or naval gunfire observer for pain If you develop a warm, [...] vitamins as directed by your doctor or artillery or naval gunfire observer. Refer to the booklet in the folder/binder for more information. If you feel you need more assistance or have questions, please call Gia Walton IBCLC, marketing operations consultant, at or the OB department to [...] they become loose or soiled. If used, [place] should be removed by your care provider. [...] Outpatient Instructions for IM or Subcutaneous Injections [address] [place] [address] You are advised to carry out the [...] RN - 12/04/2018 OUTPATIENT DISCHARGE Jennifer Calvert [facility] [place] Freya Husain [facility] ACTIVITY LIMITATIONS: ( X )Up and [...] Present Illness * Amaya Russo APRN - PATRICK - 12/23/2018 10:18 AM EDT Department of Obstetrics and Gynecology Labor and Delivery Post Progress Note SUBJECTIVE: Pt doing well today and is ready to go home. Pt is very comfortable with care OBJECTIVE: Vitals: BP 121/73 Pulse 75 Temp 98 F (36.7 C) (Temporal) Resp 18 Ht 5' 3 (1.6 m) Wt 214 lb (97.1 kg) LMP 04/06/2018 (Approximate) SpO2 98% ? Unknown [...] rate: Baseline Heart Rate: 140 Accelerations: present Senior Care Variability: moderate Decelerations: absent Contraction frequency: 2 [...] the referral. Education session duration: 70 minutes; ([id number]). Reminder to ordering Physician/Provider: Diabetes and CKD (non-dialysis) patients may have 2 hours of MNT education in subsequent years. Hours can be spread over any number of visits. documented in this encounter* Amaya Russo APRN - PATRICK - 12/04/2018 12:26 PM EDT Dx 34 weeks Hypertension NST reactive documented in this encounter Chief Complaint and Reason for Visit Chief Complaint throat pain cough, vomiting,headacheReason for VisitContact with and (suspected) exposure to covid-19 COVID-19 Sore throat Streptococcal pharyngitis Influenza A (H1N1) Chief Complaint throat pain cough, vomiting,headache Left ankle painReason for VisitContact with and (suspected) exposure to covid-19 COVID-19 Sore throat Streptococcal pharyngitis Influenza A (H1N1) Injury Chief Complaint throat pain cough, vomiting,headache Left ankle painReason for VisitContact with and (suspected) exposure to covid-19 COVID-19 Sore throat Streptococcal pharyngitis Influenza A (H1N1) Injury Left ankle sprain Chief Complaint Admit Date G93.2 July 10, 2024 6:52a m Idiopathic intracranial hypertension Jul 8:00am Reason for Visit Admit Date Chronic headaches July 27, 2024 8:00a m Chief Complaint Admit Date FOLLOW UP 3 MONTH November 26, 2024 3: 06pm Reason for Visit Admit Date Idiopathic intracranial hypertension [facility] shailesh 2024 3:06pm Additional Source Comments Reason for Visit (unrecogniz ed section and content) ReasonCommentsConstipationReasonCommentsScheduled InductionStatusReasonSpecialty Diagnoses / ProceduresReferred By ContactReferred To Contact Diagnoses High blood pressure Amaya Russo APRN - CNM [address] [place] [address] [facility] ReasonCommentsGestational DiabetesStatusReasonSpecialtyDiagnoses / Procedures Referred By ContactReferred To ContactOpen Specialty Services Required Diabetes Services Diagnoses Abnormal GTT (glucose tolerance test) Amaya Russo APRN - CNM [address] [place] [address] [facility] Diabetic Education [address] [place] [address] ReasonCommentsHypertensionReasonOnset DateCommentsMed [id number] CommentsMed Change RequestReasonCommentsWeight GainReasonCommentsMed Refill ReasonCommentsAnxiety INFORMATION SOURCE (unrecogn ized section and content) DATE CREATED AUTHOR 01/04/2020 [facility] DATE CREATED AUTHOR AUTHOR'S ORGANIZ ATION 07/03/2022 [facility] DATE CREATED AUTHOR AUTHOR'S ORGANIZ ATION 02/07/2024 [facility] DATE CREATED AUTHOR AUTHOR'S ORGANIZ ATION 09/03/2024 [facility] DATE CREATED AUTHOR AUTHOR'S ORGANIZ ATION 10/08/2024 [facility] EPIC Care Teams (unrecognized sec tion and content) Team MemberRelationshipSpecialtyStart DateEnd Date Benji Hinojosa MD [address] [place] [address] PCP - GeneralCardiology07/30/22 Kika Guaman NP [address] [place] [address] Referring PhysicianNurse Practitioner07/30/22 Team Status: Active Member Role Status Dates Kika Guaman Primary Care Provider Active Team Status: Inactive Member Role Status Dates Kika Guaman Primary Care Provider Active Sta rt: April 07, 2023 End: April 07Liseth Velazquez ProviderActiveStart: April 07, 2023 End: April 07, 2023 Team Status: Inactive Member Role Status Dates Kika Guaman Primary Care Provider Active Sta rt: May 05, 2023 End: May 04Liseth Velazquez ProviderActiveStart: May 05, 2023 End: May 05, 2023 Team Status: Inactive Member Role Status Dates Kika Guaman Primary Care Provider Active Sta rt: June 16, 2023 End: June 15Liseth Velazquez ProviderActiveStart: June 16, 2023 End: June 16, 2023 Team Status: Active Member Role Status Dates Kika Guaman Primary Care Provider Active Sta rt: June 16, 2023 Liseth Prather ProviderActiveStart: June 16, 2023 Team MemberRelationshipSpecialtyStart DateEnd Date Benji Hinojosa MD [address] [place] [address] PCP - [facility] Medicine06/22/2409 Unallocated, Swathi Perry MD [address] [place] [address] [facility] - [facility] Bnaplglr25/15/24 Kika Guaman NP Referring PhysicianNurse Practitioner07/30/22 Kika Guaman NP [address] [place] [address] Nurse Pract[facility]erM[facility] Medicine06/23/23Team MemberRelationshipSpecialtyStart DateEnd Date Benji Hinojosa MD [address] [place] [address] [facility] - [facility] Hrybhqxo63/31/24 Kika Guaman NP Referring PhysicianNurse Practitioner07/30/22 Kika Guaman NP [address] [place] [address] [facility] Medicine06/23/23Team MemberRelationshipSpecialtyStart DateEnd Date Benji Hinojosa MD [address] [place] [address] PCP - [facility] Medicine06/23/23 Kika Guaman NP Referring PhysicianNurse Practitioner07/30/22 Kika Guaman NP [address] [place] [address] [facility] Medicine06/23/23Team MemberRelationshipSpecialtyStart DateEnd Date Benji Hinojosa MD [address] [place] [address] [facility] - [facility] Medicine06/23/23 Kika Guaman NP Referring PhysicianNurse Practitioner07/30/22 Kika Guaman NP [address] [place] [address] [facility] Medicine06/23/23Team MemberRelationshipSpecialtyStart DateEnd Date Benji Hinojosa MD [address] [place] [address] PCP - [facility] Medicine06/23/23 Kika Guaman NP Referring PhysicianNurse Practitioner07/30/22 Kika Guaman NP [address] [place] [address] [facility]06/23/23Team MemberRelationshipSpecialtyStart DateEnd Date Benji Hinojosa MD [address] [place] [address] PCP - [facility]12/22/23 Kika Guaman NP Referring PhysicianNurse Practitioner07/30/22 Kika Guaman NP [address] [place] [address] Nurse Pract[facility]erP[facility]06/23/23Team MemberRelationshipSpecialtyStart DateEnd Date Benji Hinojosa MD [address] [place] [address] PCP - [facility]12/22/23 Kika Guaman NP Referring PhysicianNurse Practitioner07/30/22 Kika Guaman NP [address] [place] [address] Nurse PractitionerP[facility]06/23/23Team MemberRelationshipSpecialtyStart DateEnd Date Benji Hinojosa MD [address] [place] [address] [facility] - [facility] Zabzszmt98/31/24 Kika Guaman NP Referring PhysicianNurse Practitioner07/30/22 Kika Guaman NP [address] [place] [address] [facility] Medicine06/23/23Team MemberRelationshipSpecialtyStart DateEnd Date Benji Hinojosa MD [address] [place] [address] PCP - [facility]12/22/23 Kika Guaman NP Referring PhysicianNurse Practitioner07/30/22 Kika Guaman NP [address] [place] [address] Nurse PractitionerP[facility]06/23/23Team MemberRelationshipSpecialtyStart DateEnd Date Benji Hinojosa MD [address] [place] [address] PCP - [facility] Gdnfbwlm70/31/24 Kika Guaman NP Referring PhysicianNurse Practitioner07/30/22 Kika Guaman NP [address] [place] [address] Nurse Pract[facility] Medicine06/23/23Team MemberRelationshipSpecialtyStart DateEnd Date Benji Hinojosa MD [address] [place] [address] [facility] - [facility] Veglrdwz81/31/24 Kika Guaman NP Referring PhysicianNurse Practitioner07/30/22 Kika Guaman NP [address] [place] [address] Nurse PractitionerP[facility]06/23/23Team MemberRelationshipSpecialtyStart DateEnd Date Benji Hinojosa MD [address] [place] [address] PCP - [facility] Cqruyhql87/31/24 Kika Guaman NP Referring PhysicianNurse Practitioner07/30/22 Kika Guaman NP [address] [place] [address] Nurse PractitionerP[facility]06/23/23Team MemberRelationshipSpecialtyStart DateEnd Date Benji Hinojosa MD [address] [place] [address] [facility] - [facility] Xubucsig14/31/24 Kika Guaman NP Referring PhysicianNurse Practitioner07/30/22 Kika Guaman NP [address] [place] [address] Nurse PractitionerFanew [facility] Medicine06/23/23Team MemberRelationshipSpecialtyStart DateEnd Date Benji Hinojosa MD [address] [place] [address] PCP - Generalmi Opwmmmra95/31/24 Kika Guaman NP Referring PhysicianNurse Practitioner07/30/22 Kika Guaman NP [address] [place] [address] Nurse PractitionerP[facility]06/23/23Team MemberRelationshipSpecialtyStart DateEnd Date Benji Hinojosa MD [address] [place] [address] [facility] - [facility] Lzrdywmg13/31/24 Kika Guaman NP Referring PhysicianNurse Practitioner07/30/22 Kika Guaman NP [address] [place] [address] Nurse PractitionerP[facility]06/23/23Team MemberRelationshipSpecialtyStart DateEnd Date Benji Hinojosa MD [address] [place] [address] PCP - GeneralFamily Ewcilohj19/31/24 Kika Guaman NP Referring PhysicianNurse Practitioner07/30/22 Kika Guaman NP [address] [place] [address] Nurse PractitionerFamily Medicine06/23/23 Briana Gordon DO [address] [place] [address] Referring PhysicianNeurology06/18/24Team MemberRelationshipSpecialtyStart DateEnd Date Benji Hinojosa MD [address] [place] [address] PCP - GeneralFamily Ftcourhc35/31/24 Kika Guaman NP Referring PhysicianNurse Practitioner07/30/22 Kika Guaman NP [address] [place] [address] Nurse PractitionerFamily Medicine06/23/23 Briana Gordon DO [address] [place] [address] Referring PhysicianNeurology06/18/24Team MemberRelationshipSpecialtyStart DateEnd Date Benji Hinojosa MD [address] [place] [address] PCP - GeneralFamily Pbvcqnag98/31/24 Kika Guaman NP Referring PhysicianNurse Practitioner07/30/22 Kika Guaman NP [address] [place] [address] Nurse PractitionerFamily Medicine06/23/23 Briana Gordon DO [address] [place] [address] Referring PhysicianNeurology06/18/24Team MemberRelationshipSpecialtyStart DateEnd Date Benji Hinojosa MD [address] [place] [address] PCP - GeneralFamily Skscyjrp70/31/24 Kika Guaman NP Referring PhysicianNurse Practitioner07/30/22 Kika Guaman NP [address] [place] [address] Nurse PractitionerFamaly Medicine06/23/23 Briana Gordon DO [address] [place] [address] Referring PhysicianNeurology06/18/24Team MemberRelationshipSpecialtyStart DateEnd Date Benji Hinojosa MD [address] [place] [address] PCP - GeneralFamily Qtbtzxnz37/31/24 Kika Guaman NP Referring PhysicianNurse Practitioner07/30/22 Kika Guaman NP [address] [place] [address] Nurse PractitionerFamaly Medicine06/23/23 Briana Gordon DO [address] [address] Referring PhysicianNeurology06/18/24 Team Status: Inactive Member Role Status Dates Kika Guaman Primary Care Provider Active Sta rt: July 10, 2024 End: July 10Lay Barrett ProviderActiveStart: July 10, 2024 End: July 10, 2024 Team Status: Inactive Member Role Status Dates Kika Guaman Primary Care Provider Active Sta rt: July 27, 2024 End: July 27Lay Barrett ProviderActiveStart: July 27, 2024 End: July 27, 2024Team MemberRelationshipSpecialtyStart DateEnd Date Benji Hinojosa MD [address] [place] [address] PCP - GeneralFanew [facility] Vpoctqhf38/31/24 Kika Guaman NP Referring PhysicianNurse Practitioner07/30/22 Kika Guaman NP [address] [place] [address] Nurse PractitionerFamily Medicine06/23/23 Briana Gordon DO [address] [place] [address] Referring PhysicianNeurology06/18/24Team MemberRelationshipSpecialtyStart DateEnd Date Benji Hinojosa MD [address] [place] [address] [facility] - [facility] Nhrpgnyf22/31/24 Kika Guaman NP Referring PhysicianNSaint [facility]'s [facility]07/30/22 Kika Guaman NP [address] [place] [address] Nurse PractitionerM[facility] Developmental Center Medicine06/23/23 Briana Gordon DO [address] [address] Referring PhysicianNeurology06/18/24 Team Status: Active Member Role Status Dates Kika Guaman NP-C Primary Care Provider Active Team Status: Inactive Member Role Status Dates Kika Guaman NP-C Primary Care Provider Active Start: November 26, 2024 End: November 26, 2024Kady Gunderson APRN-FNP-CAttending ProviderActiveStart: November 26, 2024 End: November 26, 2024Team MemberRelationshipSpecialtyStart DateEnd Date Benji Hinojosa MD PCP - [facility] Medicine06/22/2409 Unallocated, Swathi Perry MD [address] [place] [address] PCP - GeneralFamily Zxffjusr61/15/ Benji Hinojosa MD PCP - GeneralFamily Qngglyvv31/31/24 Kika Guaman NP Referring PhysicianNurse Practitioner07/30/22 Kika Guaman NP Nurse PractitionerFamily Medicine06/23/23 Briana Gordon DO [address] [address] Referring PhysicianNeurology06/18/24Team MemberRelationshipSpecialtyStart DateEnd Date Benji Hinojosa MD PCP - GeneralCardiology Benji Hinojosa MD PCP - GeneralFamily Medicine06/22/2409 Unallocated, Swathi Perry MD [address] [place] [address] PCP - GeneralFamily Eiyxensz94/15/ Benji Hinojosa MD PCP - GeneralFamily Bpacswuj82/31/24 Kika Guaman NP Referring PhysicianNurse Practitioner07/30/22 Kika Guaman NP Nurse PractitionerFamily Medicine06/23/23 Briana Gordon DO [address] [place] [address] Referring PhysicianNeurology06/18/24 Goals (unrecognized section and content) Goals may [...] BE BASED ON THE PRIMARY CLINICAL RECORDS. [employer] provides no warranty or guarantee of the accuracy or completeness of information in this document.
[2024-12-24 16:12] LABS: Anion Gap 9.1; Blood Urea Nitrogen 10.0 mg/dL (7.0-18.0); Calcium 8.7 mg/dL (8.5-10.1); Carbon Dioxide 26.1 mmol/L (21.0-32.0); Chloride 108 mmol/L (98-107); Estimated GFR (African America >60 (>=60 mL/min/1.73m^2); Estimated GFR (Non-African Ame >60 (>=60 mL/min/1.73m^2); Glucose 89 mg/dL (74-106); Potassium 4.2 mmol/L (3.5-5.1); Sodium 139 mmol/L (136-145)
== END 2024-12-24 15:21 | disposition home or self-care (01) ==
LOC: LAB 15:21
PROVIDERS: PCP Nurse Practitioner; Visit Provider Nurse Practitioner
DX: G93.2 Benign intracranial hypertension (principal)
CPT/HCPCS: 36415; 80048

== ENCOUNTER 2025-01-08 09:37 | Outpatient (OUT) | payer OTHER, SELFPAY ==
--- OUTSIDE RECORDS SUMMARY | 2025-01-08 09:44 | XMS_ITS | CCD ---
Author Organization [facility] Care Team Providers Care Bonus Clerk Name Role Phone Unavailable Primary Care Provider Unavailbud e Kika Guaman Primary Care Provider [phone] Kika Guaamn Primary Care Provider POOL, AMAYA E Referring [...] Katiuska Ho Unavailable Barbara Zhu Unavailable AICHHOLZ, STEEL FITTER KIKA Primary Care Unavailable CAROLINA, DR JOSSY Tran Admitting Unavailbud FIGUEROA, DR JOSSY Tran Attending Unavailbud e ALLYSSA ., KAROL Consulting Unavailable AICHHOLZ, STEEL FITTER KIKA Primary Care Unavailable DR VINCENZO FISCHER Admitting Unavailable LAWRENCE, DR VINCENZO Rahman Attending Unavailable DR VINCENZO FISCHER Consulting Unavailable AICHHOLZ, STEEL FITTER KIKA Admitting Unavailable AICHHOLZ, STEEL FITTER KIKA Attending Unavailable AICHHOLZ, STEEL FITTER KIKA Primary Care Unavailable AICHHOLZ, STEEL FITTER KIKA Consulting Unavailable RONALD JOHN Consulting Unavailable AICHHOLZ, STEEL FITTER KIKA Admitting Unavailable AICHHOLZ, STEEL FITTER KIKA Attending Unavailable AICHHOLZ, STEEL FITTER KIKA Primary Care Unavailable AICHHOLZ, STEEL FITTER KIKA Consulting Unavailable AICHHOLZ, STEEL FITTER KIKA Admitting Unavailable AICHHOLZ, STEEL FITTER KIKA Attending Unavailable AICHHOLZ, STEEL FITTER KIKA Primary Care Unavailable AICHHOLZ, STEEL FITTER KIKA Consulting Unavailable AICHHOLZ, STEEL FITTER KIKA Admitting Unavailable AICHHOLZ, STEEL FITTER KIKA Attending Unavailable AICHHOLZ, STEEL FITTER KIKA Primary Care Unavailable AICHHOLZ, STEEL FITTER KIKA Consulting Unavailable AICHHOLZ, STEEL FITTER KIKA Primary Care Unavailable LAWRENCE, DR VINCENZO Rahman Admitting Unavailable LAWRENCE, DR VINCENZO Rahman Attending Unavailable LAWRENCE, DR VINCENZO Rahman Consulting Unavailable CABRERA, DR DEEJAY Rahman Consulting Unavailable MITCHELL ., RAJINDER Consulting Unavailable Aichholz VISUAL STYLIST, Kika Unavailable Ashish ARMSTRONG, Benji Primary Care Provider Kika Guaman Primary Care Provider LOUIE Zhu Attending Provider Aicbandar VISUAL STYLIST, Kika Unavailable Ashish ARMSTRONG, Benji Primary Care Provider Aicfelipe VISUAL STYLIST, Kika Unavailable Unallocated , Noms Provider Primary Care Provi migdalia Ashish ARMSTRONG, Benji Primary Care Provider Ashish ARMSTRONG, Benji Primary Care Provider KIKA GUAMAN J Primary Care Unavailable MIKHAIL GASCA Attending Unavailable Briana Gordon DO Unavailable Kika Guaman Primary Care Provider Briana Gordon DO Attending Provider Briana Gordon Attending Unavailab le Kika Guaman Primary Care Unavailable Briana Gordon Admitting Unavailab le Kika Guaman J Primary Care Unavailable Briana Gordon Admitting Unavailab Briana Reyna Attending Unavailab Briana Reyna DO Unavailable [phone] AICBANDAR, KIKA Attending Unavailable AICBUNNYZ, KIKA Attending Unavailable BRIANA GORDON Attending Unavailable AICHHOLZ, KIKA Referring Unavailable AICAna LauraHOLYoni, KIKA Attending Unavailable KIKA GUAMAN Attending Unavailable KIKA GUAMAN Attending Unavailable KIKA GUAMAN Attending Unavailable Deniz VISUAL STYLIST-CKika Primary Care Provider Neptali RICKETTSP-Kady Francis Attending Provider Deniz VISUAL STYLIST, Kika Unavailable Benji Hinojosa MD Primary Care Provider Deniz VISUAL STYLIST, Kika Unavailable Unallocated Swathi ARMSTRONG Provider Primary Care Provi migdalia Benji Hinojosa MD Primary Care Provider Briana Gordon DO Unavailable Benji Hinojosa MD Primary Care Provider Medications Current Medications MedicationDrug Class(es)DatesSig (Normalized)Sig (Original)acetaminophen 325 mg oral tablet (13 sources)Start: 12-21-2018 End: 90-34-0243vvbt 650 mg by mouth every four hours as needed for fever, then take 4000 mg by mouth every twenty-four hours as needed for ohvzj591 mg, Oral, EVERY 4 HOURS PRN, Fever, [...] mg oral tablet (5 sources)Carbonic Anhydrase InhibitorStart: 60-25-7448ugem 1 tablet by mouth twice dailyAcetazolamide 125 mg tablet Active 125 MG PO Twice daily 60 November 26, 2024 3:41pm Complies with drug therapyStart: 07-31-2024 End: 16-15-0798vzqv 1 tablet by mouth in the morningacetaZOLAMIDE (Diamox) 250 MG tablet Take 250 mg by mouth in the morning and 250 mg before bedtime. 07/31/2024 Activeamoxicillin 875 mg / clavulanate 125 mg oral tablet (4 sources)Penicillin-class AntibacterialStart: 04-10-2024 End: 65-84-9926jptz 1 tablet by mouth in the morningamoxicillin-clavulanate (Augmentin) 875-125 MG tablet Indications: Acute non-recurrent maxillary sin usitis Take 1 tablet (875 mg) by mouth in the morning and 1 tablet (875 mg) before bedtime. Do all this for 10 days. Take with food. 20 tablet 04/10/2024 04/20/2024 ActiveAtogepant (2 sources)Start: 51-36-3580fngl 1 tablet by mouth once dailyAtogepant (Qulipta) 60 mg tablet Active 60 MG PO Daily July 27, 2024 12:00am Complies with drug the rapyStart: 84-60-7581nizz 1 tablet by mouth once dailyAtogepant (Qulipta) 60 mg tablet Active 60 MG PO Daily July 27, 2024 12:00amAtogepant (Qulipta) 60 MG tablet (20 sources)Start: 90-76-7889fcgf 1 tablet by mouth once dailyAtogepant (Qulipta) 60 MG tablet Indications: Migraine Take 60 mg by mouth Daily 90 tablet 1 07/05/2024 ActiveStart: 07-05-2024 End: 47-52-7061ecxy 1 tablet by mouth once dailyAtogepant (Qulipta) 60 MG tablet Indications: Migraine Take 60 mg by mouth Daily 90 tablet 1 07/05/2024 10/03/2024 ActiveStart: 04-10-2024 End: 07-43-6593hmhw 1 tablet by mouth once dailyAtogepant (Qulipta) 60 MG tablet Indications: Migraine Take 60 mg by mouth Daily 30 tablet 3 04/10/2024 07/05/2024 Discontinued (Reorder)Start: 24-14-4697myjv 1 tablet by mouth once dailyAtogepant (Qulipta) 60 MG tablet Indications: Migraine Take 60 mg by mouth Daily 30 tablet 3 04/10/2024 ActiveStart: 04-10-2024 End: 37-01-9707ytmp 1 tablet by mouth once dailyAtogepant (Qulipta) 60 MG tablet Indications: Migraine Take 60 mg by mouth Daily 30 tablet 3 04/10/2024 05/10/2024 Active End: 13-05-1915zkqw 1 tablet by mouth once dailyAtogepant (Qulipta) 60 MG tablet Indications: Migraine Take 60 mg by mouth Daily 04/10/2024 Discontinued (Reorder)take 1 tablet by mouth once dailyAtogepant (Qulipta) 60 MG tablet Indications: Migraine Take 60 mg by mouth Daily Activebenzocaine 200 mg/ml / menthol 5 mg/ml topical spray (1 source)Standardized Chemical AllergenStart: 99-42-2101aqwhv 1 dose topically twice dailyTopical, 2 TIMES DAILY, First dose on Tue12/22/18 at 0900 Apply to perineal area. Patient is capable and may self administer at bedside. benzonatate 200 mg oral capsule (1 source)Non-narcotic AntitussiveStart: 01-21-2024 End: 27-96-0813nyiu 1 capsule by mouth every eight hours [...] mg/ml oral solution (1 source)alpha-Adrenergic Agonist, Uncompetitive N-vzlzyd-L-aspartate Receptor Antagonist, Sigma-1 AgonistStart: 23-43-3176rqdf 10 mL by mouth every six hours Pxhslzigi-Wwmmbtku-SL 30-2-10 MG/5ML 10 mL Orally every 6 hours for 5 days May, Activecephalexin 500 mg oral capsule (1 source)Cephalosporin AntibacterialStart: 05-23-2024 End: 71-82-2676xwlq 1 capsule by mouth in the morningcephalexin (Keflex) 500 MG capsule Indications: Urinary tract infection symptoms Take 1 capsule (500 mg) by mouth in the morning and 1 capsule (500 mg) before bedtime. Do all this for 7 days. 14 capsule 05/23/2024 05/30/2024 Activedocusate sodium 100 mg oral capsule (1 source)Start: 93-00-3039yief 100 mg by mouth twice daily as needed for sjpdzalovchs894 mg, Oral, 2 TIMES DAILY PRN, Constipation, Starting 12/22/18 at 0325 Do not crush or break. PostpartumNorethindrone-E.Estradiol-Iron (6 sources)EstrogenStart: 76-73-8293whbt 1 tablet by mouth once daily Norethindrone-E.Estradiol-Iron (Lorelei Fe 1.5/30 (28)) 1.5 mg-30 mcg (21)/75 mg (7) tablet Active 1 TAB PO Daily April 07, 2023 1:00am Complies with drug therapyStart: 15-50-7398mzeu 1 tablet by mouth once daily Norethindrone-E.Estradiol-Iron (Lorelei Fe 1.5/30 (28)) 1.5 mg-30 mcg (21)/75 mg (7) tablet Active 1 TAB PO Daily April 07, 2023 1:00amStart: 98-44-9607imbx 1 tablet by mouth once dailyNorethindrone-E.Estradiol-Iron (Lorelei Fe 1.5/30 (28)) 1.5 mg-30 mcg (21)/75 mg (7) tablet Active 1 TAB PO Daily April 07, 2023 12:00amethinyl estradiol 0.03 mg / norethindrone acetate 1.5 mg oral tablet (20 sources)EstrogenStart: 03-20-2024 End: 42-08-9250ndce 1 tablet by mouth once dailynorethindrone ac-eth estradio (Lorelei 1.5/30) 1.5-30 MG-MCG tablet tablet Indications: Dysmenorrhea Take 1 tablet by mouth Daily 84 tablet 03/20/2024 10/08/2024 Discontinued (Therapy completed)Start: 07-13-2023 End: 05-87-0400ivbl 1 tablet by mouth once dailynorethindrone ac-eth estradio (Lorelei 1.5/30) 1.5-30 MG-MCG tablet tablet Indications: Dysmenorrhea Take 1 tablet by mouth Daily 84 tablet 1 11/09/2023 ActiveStart: 98-11-0373uwgq 1 tablet by mouth in the morningnorethindrone ac-eth estradio (Lorelei 1.5/30) 1.5- 30 MG-MCG tablet tablet Take 1 tablet by mouth in the morning. 0 12/26/2022 Activeethinyl estradiol 0.035 mg / norgestimate 0.25 mg oral tablet (3 sources)Progestin, EstrogenStart: 01-47-1029bdwm 1 tablet by mouth once daily norgestimate-ethinyl estradiol (ORTHO-CYCLEN, 28,) 0.25-35 MG-MCG per tablet Indications: care following vaginal delivery Take 1 tablet by mouth daily 3 packet 3 02/08/2019 ActiveFLUoxetine 20 mg oral capsule (19 sources)Serotonin Reuptake InhibitorStart: 05-09-2024 End: 48-70-2004lftd 1 capsule by mouth once dailyFluoxetine (Prozac) 20 mg capsule Active 20 MG PO Daily July 27, 2024 12:00am Complies with drug therapy Start: 09-28-2023 End: 65-12-3592ikwm 1 capsule by mouth once dailyFLUoxetine (PROzac) 20 MG capsule Indications: Anxiety and depression (CMS/HCC) Take 1 capsule (20 mg) by mouth Daily 30 capsule 1 09/28/2023 11/09/2023 Discontinuedfluticasone propionate 0.05 mg/actuat metered dose nasal spray (3 sources)CorticosteroidStart: 73-07-6296ndnd 1 spray(s) nasal route once daily Flonase Allergy Relief 50 MCG/ACT 1 spray in each nostril Nasally Once a day for 14 day(s) May, ActiveStart: 16-77-3246liwv 2 spray(s) nasal route once dailyFLONASE 50 mcg 2 sprays nasally qd Nov, Not-TakingStart: 12-10-2020 take 2 spray(s) nasal route once dailyFLONASE 50 mcg 2 sprays nasally qd Nov, ActivehydrOXYzine pamoate 25 mg oral capsule (20 sources)AntihistamineStart: 57-05-4528pazl 1 capsule by mouth once daily Hydroxyzine Pamoate (Vistaril) 25 mg capsule Active 25 MG PO Daily July 27, 2024 12:00am Complies with drug therapyStart: 39-80-2930nomePBXzkqm pamoate (Vistaril) 25 MG capsule 11/07/2023 Activeibuprofen 800 mg oral tablet (1 source)Nonsteroidal Anti-inflammatory DrugStart: 83-52-1313axnd 800 mg by mouth every eight fhshy996 mg, Oral, EVERY 8 HOURS, First dose on Tue12/22/18 at 0345 Do not crush or break. Postpartumlabetalol hydrochloride 100 mg oral tablet (3 sources)beta-Adrenergic BlockerStart: 73-52-8139qcqk 100 mg by mouth twice nozle417 mg, Oral, 2 TIMES DAILY, First dose on Ila 12/21/18 at 2100lanolin 0.5 mg/mg topical ointment (1 source)Start: 16-93-2732Hbxfvlp, PRN, Dry Skin, nipple discomfort, Starting Tue12/22/18 at 0325, Postpartum3 ml liraglutide 6 mg/ml pen injector (20 sources)GLP-1 Receptor AgonistStart: 12-08-2023 End: 38-46-7355Xwkcjfvezgv -Weight Management (Saxenda) 18 MG/3ML solution pen- [...] 12/08/2023 04/10/2024 Discontinued (Therapy completed)Start: 09-28-2023 End: 91-10-8342Wqfmhlbztww -Weight Management (Saxenda) 18 MG/3ML solution pen- injector Indications: Osteoarthritis of knee, unspecified , Body mass index (BMI) 36.0-36.9, adult Start with 0.6mg daily for 7 days, every 7 days increase the dose by 0.6mg to max dose of 3mg daily 15 mL 3 09/28/2023 11/10/2023 Discont inued (Reorder)Start: 04-07-2023 End: 62-46-4285Tuifijrdrbv (Weight Loss) (Saxenda) 3 mg/0.5 mL (18 mg/3 mL) pen injector Discontinued 3 MG SUBCUT Once a week April 07, 2023 1:00am November 26, 2024 3:16pmStart: 46-91-0623Nirfmmplszf (Weight Loss) (Saxenda) 3 mg/0.5 mL (18 [...] 0 ActiveMultivitamin (Daily Multi-Vitamin) tablet (2 sources)Start: 86-56-6903bqcj 1 tablet by mouth once dailyMultivitamin (Daily Multi-Vitamin) tablet Active 1 TAB PO Daily July 27, 2024 12:00am Complies with drug therapyStart: 05-98-0689jlkl 1 tablet by mouth once dailyMultivitamin (Daily Multi-Vitamin) tablet Active 1 TAB PO Daily July 27, 2024 12:00am oxytocin (PITOCIN) 30 units in 500 mL infusion (1 source)Start: 16-48-8097cqruzmgm (PITOCIN) 30 units in 500 mL infusion Pneumatic Walking Boot (1 source)Start: 72-03-4478Jkcpozirh Walking Boot Active 0 .Route 1 June 16, 2023 12:00am As directedPneumatic Walking Boot unit (2 sources)Start: 29-50-9011Ynvvsdqdg Walking Boot unit Active 0 .Route 1 June 16, 2023 12:00am As directedPrenatal MV & Min w/FA-DHA ( Gummies) 0.18-25 MG chewable tablet (20 sources)Start: 58-09-8011Nkhmumke MV & Min w/FA-DHA ( Gummies) 0.18- 25 MG chewable tablet 11/07/2023 ActiveStart: 23-10-4171Nlhbobcy MV & Min w/FA- DHA ( Gummies) 0.18-25 MG chewable tablet as directed Orally 11/07/2023 ActivePrenatal MV-Min-Fe Fum-FA-DHA ( 1 PO) (13 sources) MV-Min-Fe Fum-FA-DHA ( 1 PO) Take by mouth daily 0 ActiveSemaglutide (Weight Loss) (1 source)Start: 16-90-5854Kyfdooabudo (Weight Loss) (Wegovy) 2.4 mg/0.75 mL pen injector Active MG SUBCUT November 26, 2024 12:00am Complies with drug therapy Semaglutide-Weight Management (Wegovy) 0.25 MG/0.5ML solution auto-injector (4 sources)Start: 2024 End: 81-38-1499Blfaehypsdw-Weight Management (Wegovy) 0.25 MG/0.5ML solution auto-injector Indications: Morbid (severe) obesity due to excess calories (CMS/HCC) Inject 0.25 mg under the skin every 7 (seven) days for 28 days 2 mL 2024 03/29/2024 ActiveSemaglutide-Weight Management (Wegovy) 0.5 MG/0.5ML solution auto-injector (5 sources)Start: 04-10-2024 End: 39-29-1287Aypliejdrbd-Weight Management (Wegovy) 0.5 MG/0.5ML solution auto-injector Indications: Morbid (severe) obesity due to excess calories (CMS/HCC) Inject 0.5 mg under the skin every 7 (seven) days for 28 days 2 mL 04/10/2024 04/10/2024 Discontinued (Therapy completed)Start: 03-27-2024 End: 12-48-3742Cjesmejmqig-Weight Management (Wegovy) 0.5 MG/0.5ML solution auto-injector Indications: Morbid (severe) obesity due to excess calories (CMS/HCC) , Body mass index (BMI) 36.0-36.9, adult Inject 0.5 mgunder the skin every 7 (seven) days for 28 days 2 mL 03/27/2024 04/10/2024 Discontinued (Cost of medication)Start: 03-27-2024 End: 05-29-2939Icaifyydjus-Weight Management (Wegovy) 0.5 MG/0.5ML solution auto-injector Indications: Morbid (severe) obesity due to excess calories (CMS/HCC) , Body mass index (BMI) 36.0-36.9, adult Inject 0.5 mgunder the skin every 7 (seven) days for 28 days 2 mL 03/27/2024 04/24/2024 ActiveSemaglutide- Weight Management (Wegovy) 1 MG/0.5ML solution auto-injector (4 sources)Start: 04-10-2024 End: 46-06-7221Ioxzhhdffsh-Weight Management (Wegovy) 1 MG/0.5ML solution auto- injector Indications: Morbid (severe) obesity due to excess calories (CMS/HCC) Inject 1 mg under the skin every 7 (seven) days for 28 days 2 mL 04/10/2024 05/08/2024 ActiveSemaglutide-Weight Management (Wegovy) 1.7 MG/0.75ML solution auto-injector (2 sources)Start: 05-09-2024 End: 14-11-3981Sqoddsmislh-Weight Management (Wegovy) 1.7 MG/0.75ML solution auto-injector Indications: Morbid (severe) obesity due to excess calories (CMS/HCC) , BMI 35.0-35.9,adult Inject 1.7 mg under the skin every 7 (seven) days for 28 days 3 mL 05/09/2024 06/06/2024 ActiveSemaglutide-Weight Management (Wegovy) 2.4 MG/0.75ML solution auto-injector (6 sources)Start: 10-08-2024 End: 31-99-0678Lpwplfghhuf-Weight Management (Wegovy) 2.4 MG/0.75ML solution auto-injector Indications: Morbid (severe) obesity due to excess calories (CMS- HCC) Inject 2.4 mg under the skin every 7 (seven) days for28 days 3 mL 2 10/08/2024 11/05/2024 ActiveStart: 07-05-2024 End: 33-36-8874Rafaaljapoi-Weight Management (Wegovy) 2.4 MG/0.75ML solution auto-injector Indications: Morbid (severe) obesity due to excess calories (CMS/HCC) Inject 2.4 mg under the skin every 7 (seven) days for28 days 3 mL 2 07/05/2024 08/02/2024 ActiveStart: 05-09-2024 End: 81-11-4256Jwmmlpfhdjr-Weight Management (Wegovy) 2.4 MG/0.75ML solution auto-injector Indications: [...] sodium chloride 9 mg/ml injection (2 sources)Start: 79-46-944317 mL, Intravenous, EVERY 12 HOURS SCHEDULED (2 times per day), First dose on Tue12/22/18 at 0900, PostpartumStart: 12-22-2018 take 10 mL intravenous route once10 mL, Intravenous, PRN, Line Care, Starting Tue12/22/18 at 0325 After every IV line use PostpartumtiZANidine 2 mg oral capsule (2 sources)Central alpha-2 Adrenergic AgonistStart: 97-62-1458bxpq 1 capsule by mouth every eight hours as neededZanaflex 2 MG capsule Take 2 mg by mouth every 8 (eight) hours if needed 0 12/27/2022 ActiveStart: 46-29-4454mlGEYulbwv (Zanaflex) 4 MG tablet Take 4 mg by mouth 0 12/22/2022 Activetopiramate 25 mg oral tablet (9 sources)Start: 02-23-2023 End: 99-54-9522shad 2 tablets by mouth at bedtimetopiramate (Topamax) 25 MG tablet Indications: Migraine without aura and without status migrainosus, not intractable (CMS/HCC) Take 2 tablets (50 mg) by mouth at bedtime 60 tablet 1 02/23/2023 ActivevalACYclovir 500 mg oral tablet (20 sources)Herpesvirus Nucleoside Analog DNA Polymerase Inhibitor, Herpes Simplex Virus Nucleoside Analog DNA Polymerase Inhibitor, Herpes Zoster Virus Nucleoside Analog DNA Polymerase InhibitorStart: 83-73-2464tdhr 1 tablet by mouth once dailyvalACYclovir (Valtrex) 500 MG tablet Take 500 mg by mouth Daily 06/18/2024 ActiveStart: 03-20-2024 End: 10-49-2364nztv 1 tablet by mouth once dailyvalACYclovir (Valtrex) 500 MG tablet Indications: Herpesviral infection, unspecified Take 1 tablet (500 mg) by mouth Daily 30 tablet 5 03/20/2024 04/19/2024 ActiveStart: 12-13-2018 End: 83-33-9737huou 1 tablet by mouth once dailyvalACYclovir (VALTREX) 500 MG tablet Indications: Hx of herpes genitalis Take 1 tablet by mouth daily 30 tablet 2 12/13/2018 12/23/2018 Discontinued (Stop Taking at Discharge)Start: 09-19-7653goij 1 tablet by mouth twice dailyvalACYclovir (VALTREX) 500 MG tablet Take 1 tablet by mouth 2 times daily 60 tablet 2 03/02/2017 Active End: 97-56-4473gumJDWjrwbwh (Valtrex) 500 MG tablet Take 500 mg by mouth if needed (hpv 2) 03/20/2024 DiscontinuedWegovy 0.25 MG/0.5ML solution auto-injector (3 sources)Start: 03-27-2024 End: 93-73-8631Ealpyy 0.25 MG/0.5ML solution auto-injector Indications: Morbid (severe) obesity due to excess calories (CMS/HCC) Inject 0.25 mg under the skin every 7 (seven) days for 28 days 2 mL 03/27/2024 04/10/2024 Discontinued (Therapy completed)Start: 03-27-2024 End: 15-82-0093Kaqyul 0.25 MG/0.5ML solution auto-injector Indications: Morbid (severe) obesity due to excess calories (CMS/HCC) Inject 0.25 mg under the skin every 7 (seven) days for 28 days 2 mL 03/27/2024 04/24/2024 ActiveWegovy 1.7 MG/0.75ML solution auto-injector (4 sources)Start: 06-19-2024 End: 72-16-5362Deginw 1.7 MG/0.75ML solution auto-injector INJECT 1.7mg SUBCUTANEOUSLY (UNDER THE SKIN) EVERY 7 DAYS 06/19/2024 10/08/2024 Discontinued (Therapy completed)Start: 39-39-8163Gitulv 1.7 MG/0.75ML solution auto-injector INJECT 1.7mg SUBCUTANEOUSLY (UNDER THE SKIN) EVERY 7 DAYS 06/19/2024 Active Wegovy 2.4 MG/0.75ML solution auto-injector (3 sources)Start: 09-27-2024 End: 20-57-2651Uqntrh 2.4 MG/0.75ML solution auto-injector Inject 2.4 mg under the skin every 7 (seven) days 09/27/2024 10/08/2024 Discontinued (Reorder)Start: 46-89-9371Erjtui 2.4 MG/0.75ML solution auto-injector Inject 2.4 mg under the skin every 7 (seven) days 09/27/2024 Activewitch saurabh 500 mg/ml medicated pad (1 source)Start: 06-79-7068hskxi 1 dose topically twice dailyTopical, 2 TIMES DAILY, First dose on Tue12/22/18 at 0900 Apply to perineal area. Patient is capable and may self administer at bedside. Completed/Discontinued Medications MedicationDrug Class(es)DatesSig (Normalized)Sig (Original)amoxicillin 500 mg oral capsule (6 sources)Penicillin-class AntibacterialStart: 04-07-2023 End: 84-49-3308xumi 1 capsule by mouth twice dailyAmoxicillin 500 mg capsule Discontinued 500 MG PO Twice daily April 07, 2023 1:00am May 05, 2023 3:57pmBlood Glucose Monitoring Suppl (TRUE METRIX METER) w/Device KIT (4 sources)Start: 10-23-2018 End: 48-38-4758Uwmyr Glucose Monitoring Suppl (TRUE METRIX METER) w/Device KIT use to test blood sugar 0 10/23/2018 12/23/2018 Discontinued (Stop Taking at Discharge)Start: 67-47-8289Nuvmw Glucose Monitoring Suppl (TRUE METRIX METER) w/Device KIT use to test blood sugar 0 10/23/2018 Activecalcium chloride 0.0014 meq/ml / potassium chloride 0.004 meq/ml / sodium chloride 0.103 meq/ml / sodium lactate 0.028 meq/ml injectable solution (1 source)Start: 12-21-2018 End: 92-46-6724iqjhqwjt ringers infusiondextromethorphan hydrobromide 15 mg / guaiFENesin 400 mg / pseudoephedrine hydrochloride 60 mg oraltablet (5 sources)alpha-Adrenergic Agonist, Uncompetitive V-vwnygl-X-aspartate Receptor Antagonist, Sigma-1 AgonistStart: 05-05-2023 End: 79-47-0677cluk 4 tablets by mouth every twenty-four hours as needed Ernxjtxtgdunnbv-Ba-Wigkvdosesv (Capmist Dm) 60-15-400 mg tablet Discontinued 1 TAB PO EVERY 4-6 HOURS as needed for cold symptoms May 05, 2023 12:00am July 27, 2024 8:45am do not exceed 4 doses per 24 hrsondansetron 4 mg disintegrating oral tablet (6 sources)Serotonin-3 Receptor AntagonistStart: 04-07-2023 End: 02-30-9076gkmf 1 tablet by mouth every six hours as neededOndansetron 4 mg tablet,disintegrating Discontinued 4 MG PO Every 6 hours as needed April 07, 2023 1:00am May 05, 2023 3:57pmoseltamivir 75 mg oral capsule (5 sources)Neuraminidase InhibitorStart: 05-05-2023 End: 68-14-7682tyji 1 capsule by mouth twice dailyOseltamivir (Tamiflu) 75 mg capsule Discontinued 75 MG PO Twice daily 11 25May 05, 2023 12:00amJun2024 8:45ampredniSONE 20 mg oral tablet (2 sources)Start: 59-56-4377ouke 1 tablet by mouth every twelve hourspredniSONE 20 MG 1 tablet Orally bid for 5 day(s) Nov, Not-Takingrho(d) immune globulin, human 1500 unt prefilled syringe (2 sources)Human Immunoglobulin GStart: 12-22-2018 End: 37-92-3069789 mcg, Intramuscular, PRN, if mom negative and baby positive, Starting Tue12/22/18 at 0325, For 1dose, PostpartumStart: 10-17-2018 End: 06-12-3519ied(D) immune globulin (HYPERRHO S/D) injection 300 mcgsodium phosphate 67.8 mg/ml / sodium phosphate, monobasic 185 mg/ml enema (1 source)Start: 12-06-2018 End: 44-71-5919vyzdl rectal enema 1 enemaSUMAtriptan 50 mg oral tablet (4 sources)Serotonin-1b and Serotonin-1d Receptor AgonistStart: 12-22-2022 End: 36-77-0515kwxg 1 tablet by mouth onceSUMAtriptan (Imitrex) 50 MG tablet Take 50 mg by mouth 1 (one) time if needed 12/22/2022 11/09/2023iscontinued (Therapy completed) Problems Active Problems Problem ClassificationProblemDateDocumented DateEpisodic/ChronicAnxiety disorders (20 sources)Mixed anxiety and depressive disorder; Translations: [Anxiety disorder, unspecified]Onset: 08-23-2023 Resolved: [id number] hypertension (20 sources)Hypertensive disorder; Translations: [Essential (primary) hypertension]Onset: [id number]; including migraine (20 sources)Migraine without aura, not refractory ; Translations: [Migraine without aura, not intractable, without status migrainosus]Onset: 02-10-2023 77-77-8214AsnjpyxYcatmanf; including migraine (3 sources)Chronic headache disorder; Translations: [Chronic headache disorder] 33-33-7031VkmawwxuIbbiyxri; including migraine (1 source)Headache; including migraine; Translations: [Headache, unspecified] Onset: 12-78-2239Lyrsmdvrcxhl complicating ; childbirth and the puerperium (10 sources)Pre-existing hypertension in obstetric context; Translations: [Pre- existing essential hypertension during in third trimester]12-04-2018 ChronicImmunizations and screening for infectious disease (20 sources)Serology positive; Translations: [Contact with and (suspected) exposure to other viral communicablediseases]Onset: 12-10-2020 Resolved: [id number] (3 sources)Influenza due to other identified influenza virus with other respiratory manifestations; Translations: [Influenza due to identified 2009 H1N1 influenza virus with other respiratory manifestations]04-54-9251NmmurulrGvsxr disorders and dislocations; trauma-related (20 sources)Derangement of left knee; Translations: [Unspecified internal derangement of left knee]Onset: 917309-44-9024OwaeieoCohbycjew disorders (20 sources)Amenorrhea; Translations: [Irregular periods]Onset: 02-23-2023 ChronicMood disorders (20 sources)Moderate major depression ; Translations: [Major depressive disorder, single episode, moderate]Onset: 11-09-2023 Resolved: 851596-95-6012IrpjniyCxotitbujgcjfr (20 sources)Osteoarthritis of knee; Translations: [Osteoarthritis of knee, unspecified]Onset: 564862-01-1425GtdkfjlSvdis aftercare (1 source)Other snf (current) drug therapy; Translations: [OTH MCFP CURRENT DRUG THERAPY]Onset: 08-52-0692ZbjyiittAadai complications of (14 sources)Anemia in mother complicating , childbirth AND/OR puerperium; Translations: [Anemia affecting in third trimester]Onset: 01-23-2016 Resolved: 784968-53-1099MfqqjluKhgjx connective tissue disease (1 source)Other muscle spasm; Translations: [OTHER MUSCLE SPASM]Onset: 65-07-5383DwodeqamZntnw connective tissue disease (1 source)Hand painOnset: 02-10-6133YvsjzmptPqflr injuries and conditions due to external causes (2 sources)Injury, unspecified, initial encounter; Translations: [Unspecified site injury]89-40-6608OvekombkPduft injuries and conditions due to external causes (1 source)Unspecified injury of left wrist, hand and finger(s), initial encounter; Translations: [Unspecifiedinjury of left wrist, hand and finger(s), initial encounter]Onset: 61-78-0469PkabstzaMtsoe nervous system disorders (6 sources)Benign intracranial hypertension; Translations: [Benign intracranial hypertension]81-10-8249SdxmxarWihno nervous system disorders (1 source)Other chronic pain; Translations: [Other chronic pain]Onset: 75-96-9358OvjjgnxJmewv nervous system disorders (1 source)Benign intracranial hypertension; Translations: [Benign intracranial hypertension]Onset: 08-59-2915MhfbrhuPrpwn non-traumatic joint disorders (20 sources)Pain in left knee; Translations: [Pain in joint, lower leg]Onset: 06-01-2022 Resolved: 35-84-4387HkxvvhbgTjuwv nutritional; endocrine; and metabolic disorders (1 source)Obesity, unspecified; Translations: [OBESITY UNSPECIFIED]Onset: 88-10-7008IpzkekwDdtun nutritional; endocrine; and metabolic disorders (20 sources)Obesity caused by energy imbalance; Translations: [Other obesity due to excess calories]Onset: 02-23-2023 Resolved: 902938-53-8782DbqwrsuOenex nutritional; endocrine; and metabolic disorders (20 sources)Body mass index 30+ - obesity; Translations: [Body mass index (BMI) 35.0-35.9, adult]Onset: 572211-81-8314KebrgosYickj and delivery including normal (20 sources)Delivery normal; Translations: [ with uncertain dates] Onset: 01-09-2016 Resolved: 938194-75-0151CtpnsfzkNqnaapro codes; unclassified (1 source)Gestation period, 27 weeks; Translations: [27 weeks gestation of ]EpisodicResidual codes; unclassified (1 source)Gestation period, 35 weeks; Translations: [35 weeks gestation of ]EpisodicResidual codes; unclassified (8 sources)Gestation period, 34 weeks; Translations: [34 weeks gestation of ]02-04-2187Iuiqggxprcu; intervertebral disc disorders; other back problems (3 sources)Cervicalgia; Translations: [CERVICALGIA]Onset: 06-04-1934Vomslvml Unclassified (2 sources)Patient encounter status; Translations: [Screen for STD (sexually transmitted disease)]Unclassified (1 source)LOW BACK PAIN, UNSPECIFIED; Translations: [LOW BACK PAIN, UNSPECIFIED] Onset: 94-58-0548Wctcfnmavdvi (2 sources)COUGH, UNSPECIFIED; Translations: [COUGH, UNSPECIFIED]Onset: 93-37-5626Jgkiisywtfsk (1 source)LT Hand Injury- Workers Comp.Onset: 94-76-7196Eavff infection (20 sources)Anogenital herpesviral infection; Translations: [Anogenital herpesviral infection, unspecified]Onset: 501872-20-0468YtkafaiSipph infection (15 sources)Herpes simplex; Translations: [Herpesviral infection, unspecified] 89-40-1543EcpnlxwsCwpab infection (2 sources)COVID-19; Translations: [Disease caused by 2019-nCoV]Onset: 09-29-2021 Past or Other Problems Problem ClassificationProblemDateDocumented DateEpisodic/ChronicComplications of surgical procedures or medical care (1 source)Infection following a procedure, unspecified, initial encounter; Translations: [INFECTION FOLLOWINGPROC UNSP INIT]Onset: 80-50-0027Tlwnzalc Contraceptive and procreative management (20 sources)Oral contraception status; Translations: [Encounter for surveillance of contraceptive pills]Onset: 309208-14-5712NesapoyxIoowtnvr or abnormal glucose tolerance complicating ; childbirth; or the puerperium (20 sources)Gestational diabetes mellitus, class A>1<; Translations: [Gestational diabetes mellitus]Onset: 01-09-2016 Resolved: 582155-33-4011WluorjunZvbol or threatened labor (13 sources)Premature uterine contraction; Translations: [ uterine contractions in third trimester, antepartum]Onset: 01-09-2016 Resolved: 669774-22-3358OtboivvwFsizm distress and abnormal forces of labor (20 sources)Irregular uterine contractions; Translations: [Irregular uterine contractions]Onset: 01-07-2016 Resolved: 297590-94-6517SdsvtgjcKdaptyooecmkd symptoms and ill-defined conditions (18 sources)Urinary symptoms ; Translations: [Unspecified symptoms and signs involving the genitourinary system]Onset: 05-23-2024 Resolved: 557446-48-0427QpfyzedoCtjkyuz and fatigue (20 sources)Fatigue; Translations: [Other fatigue]Onset: EpisodicNausea and vomiting (13 sources)Nausea and vomiting; Translations: [Nausea and vomiting during ]Onset: 01-22-2016 Resolved: 337556-50-2455KqvivnulMmjcdtzjykss breast conditions (20 sources)Breast lump; Translations: [Unspecified lump in the right breast, upper outer quadrant]Onset: 649629-90-5856DdphwyvzTbtpm complications of (20 sources)Herpes in ; Translations: [Other viral diseases complicating , unspecified trimester]Onset: EpisodicOther connective tissue disease (20 sources)Pain of left calf; Translations: [Pain in left lower leg]Onset: 02-17-2023 Resolved: 626918-45-9180DmmurpkyConxq gastrointestinal disorders (13 sources)Diarrhea; Translations: [Diarrhea in adult patient]Onset: 01-22-2016 Resolved: 557605-40-6348LenthiweNhtsn gastrointestinal disorders (8 sources)Constipation; Translations: [Constipation during in third trimester]Onset: 866370-21-6222AgofywvqOldka lower respiratory disease (20 sources)Cough; Translations: [Acute cough]Onset: 01-21-2024 Resolved: 002056-90-6977DqldmsezRrvhd non-traumatic joint disorders (20 sources)Swollen ankle region; Translations: [Effusion, left ankle]Onset: 06-23-2023 Resolved: 785645-50-4266QrvepqtcCyyro screening for suspected conditions (not mental disorders or infectious disease) (12 sources)Blood urate raised; Translations: [Possible ]Onset: 12-21-2018 Resolved: 041350-81-6981LgtbuzmwHfkje skin disorders (4 sources)Localized swelling, mass and lump, head; Translations: [LOCALIZED SWELLING MASS AND LUMP HEAD]Onset: 11-87-2439SfjaebnpIrkas upper respiratory infections (20 sources)Acute sinusitis, unspecified; Translations: [Acute upper respiratory infection, unspecified]Onset: 12-10-2020 Resolved: 69-89-4986KhspeklvHtjmjvagtunins and other problems of amniotic cavity (20 sources)Polyhydramnios; Translations: [Polyhydramnios with problem]Onset: 01-09-2016 Resolved: 079533-72-3372YhvmmhzrJxhbdcgm codes; unclassified (13 sources)Gestation period, 36 weeks; Translations: [36 weeks gestation of ]Onset: 01-22-2016 Resolved: 569047-30-2521YsiimwvpRxmbgfmh codes; unclassified (13 sources)H/O: miscarriage; Translations: [H/O miscarriage, currently ]Onset: 786266-50-0438IuhfdlkyZbomgxsv codes; unclassified (14 sources)Gestation period, 37 weeks; Translations: [37 weeks gestation of ]Onset: 02-03-2016 Resolved: 927597-83-9274RpzmudciLemhokdw codes; unclassified (13 sources)Gestation period, 33 weeks; Translations: [33 weeks gestation of ]Onset: 01-07-2016 Resolved: 712263-35-3332GsovicedDquehwvn codes; unclassified (1 source)Gestation period, 34 srzoj11-61-6416BzwlovsaDjysfgzh codes; unclassified (1 source)Gestation period, 38 weeksOnset: 02-09-2016 Resolved: 947675-23-9259MszvbdpfFwhpvifx codes; unclassified (20 sources)Non-smoker; Translations: [Other specified health status]Onset: 11-09-2023 Resolved: 088758-32-1920RejocjdvBxmabjpc codes; unclassified (12 sources)Gestation period, 38 weeks; Translations: [38 weeks gestation of ]Onset: 02-09-2016 Resolved: 522113-09-7309Eyfiztp and strains (20 sources)Sprain of unspecified ligament of left ankle, initial encounter; Translations: [Sprain of ankle, unspecified site]Onset: 06-21-2023 Resolved: 002418-63-5277PpudmrtkFmyofvofxfo injury; contusion (20 sources)Contusion of left knee; Translations: [Contusion of left knee, initial encounter]Onset: 06-23-2023 Resolved: 576964-45-2952TllxbltrItvluupbsljv (1 source)COUGH, UNSPECIFIED; Translations: [COUGH, UNSPECIFIED]Onset: 21-56-4659Staebgd tract infections (20 sources)Urinary tract infection, site not specified; Translations: [Urinary tract infectious disease]Onset: 04-06-2022 Resolved: 261167-64-5671Icwiviqm Results Test NameValueInterpretationReference RangeFacilityAerobic Cultureon 07-27-2024 Aerobic [...] Blood Cells No Bacteria Seen PERFORMED BY: [address] [address] PATHOLOGIST [employer] MOY HURTADO M.D.[facility] Physician GroupComment on above: Performed By: #### AERC, CSFCCNO #2, CSFCCDIFF, CSF TP, CSF GLU, CSF PCR PANEL, GS #### [address] [address] USACSF PCR Panelon 66-59-9879UXW PCR PanelTube Number for CSF Microbiology: 4 [...] Varicella zoster virus Not detected PERFORMED BY: [address] [address] PATHOLOGIST [employer] MOY HURTADO M.D.[facility] Physician GroupComment on above: Performed By: #### AERC, CSFCCNO #2, CSFCCDIFF, CSF TP, CSF GLU, CSF PCR PANEL, GS #### [facility] [address] [place] [address] USACell Count Differential,CSFon 53-55-9745Hdtucxzbcu, CSF0 NormalThe [facility] Physician GroupComment on above:Result Comment: The reference interval and other method performance specifications have not been established for this body fluid. The test result must be integrated into the clinical context for interpretation.Performed By: #### AERC, CSFCCNO #2, CSFCCDIFF, CSF TP, CSF GLU, CSF PCR PANEL, GS #### [facility] [address] [place] [address] USALymphocytes, AEK0YqigiiHpv [facility] Comment on above:Result Comment: The reference interval and other method performance specifications have not been established for this body fluid. The test result must be integrated into the clinical context for interpretation.Performed By: #### AERC, CSFCCNO #2, CSFCCDIFF, CSF TP, CSF GLU, CSF PCR PANEL, GS #### [facility] [address] [place] [address] USAMonocytes, CEE8DxgvgeKqf [facility] Physician GroupComment on above:Result Comment: The reference interval and other method performance specifications have not been established for this body fluid. The test result must be integrated into the clinical context for interpretation.Performed By: #### AERC, CSFCCNO #2, CSFCCDIFF, CSF TP, CSF GLU, CSF PCR PANEL, GS #### [facility] [address] [place] [address] USANeutrophils, NFY1KqssehOxeBaptist Health [facility]iners Hospital Physician Group Comment on above:Result Comment: The reference interval and other method performance specifications have not been established for this body fluid. The test result must be integrated into the clinical context for interpretation.Performed By: #### AERC, CSFCCNO #2, CSFCCDIFF, CSF TP, CSF GLU, CSF PCR PANEL, GS #### [facility] [address] [place] [address] USARBC, CSF19 /uLNormDayton Children's Hospitale [facility] Physician GroupComment on above:Result Comment: The reference interval and other method performance specifications have not been established for this body fluid. The test result must be integrated into the clinical context for interpretation.Performed By: #### AERC, CSFCCNO #2, CSFCCDIFF, CSF TP, CSF GLU, CSF PCR PANEL, GS #### [place] [address] USATNC, CSF1 /uLNormal0-5The [facility] Physician GroupComment on above:Performed By: #### AERC, CSFCCNO #2, CSFCCDIFF, CSF TP, CSF GLU, CSF PCR PANEL, GS #### [place] [address] USATube Number Tested, CSFTube Number: 1NormalOrlando Health Dr[facility] Physician [facility] Children'S HospitalComment on above:Result Comment: PERFORMED BY: [place] [address] PATHOLOGIST [employer] MOY HURTADO M.D.Performed By: #### AERC, CSFCCNO #2, CSFCCDIFF, CSF TP, CSF GLU, CSF PCR PANEL, GS #### [place] [address] USACell Count No Diff,CSF #2on 71-65-9567Rzlijepqbp, CSFClear NormalClearThe [facility] Physician GroupComment on above:Performed By: #### AERC, CSFCCNO #2, CSFCCDIFF, CSF TP, CSF GLU, CSF PCR PANEL, GS #### [place] [address] USAColor, CSFColorlessNormalColorlessOrlando Health Dr. [facility]. [facility] Physician GroupComment on above:Performed By: #### AERC, CSFCCNO #2, CSFCCDIFF, CSF TP, CSF GLU, CSF PCR PANEL, GS #### [place] [address] USACSF Supernatant ColorColorlessNormalColorlessOrlando Health Dr. [facility] Physician [facility]'S HospitalComment on above:Performed By: #### AERC, CSFCCNO #2, CSFCCDIFF, CSF TP, CSF GLU, CSF PCR PANEL, GS #### [place] [address] USACSF Volume, Total28.0 mLNormalThe [place] Physician GroupComment on above:Performed By: #### AERC, CSFCCNO #2, CSFCCDIFF, CSF TP, CSF GLU, CSF PCR PANEL, GS #### [place] [address] USARBC, CSF1 /uLNormBaptist Health [facility] Hospital Physician GroupComment on above:Result Comment: The reference interval and other method performance specifications have not been established for this body fluid. The test result must be integrated into the clinical context for interpretation.Performed By: #### AERC, CSFCCNO #2, CSFCCDIFF, CSF TP, CSF GLU, CSF PCR PANEL, GS #### [place] [address] USATNC, CSF0 /uLNormal0-5The [facility] Physician GroupComment on above:Performed By: #### AERC, CSFCCNO #2, CSFCCDIFF, CSF TP, CSF GLU, CSF PCR PANEL, GS #### [place] [address] USATube Number Tested, CSFTube Number: 4NoMercy Health Anderson HospitalComment on above:Result Comment: PERFORMED BY: [place] [address] PATHOLOGIST [employer] MOY HURTADO M.D.Performed By: #### AERC, CSFCCNO #2, CSFCCDIFF, CSF TP, CSF GLU, CSF PCR PANEL, GS #### [place] [address] USACerebrospinal fluid color identificationOrdered By: Briana Gordon on 98-24-6652Zljhy (CSF)Color CSFCoOur Lady of Mercy HospitalCerebrospinal fluid post-centrifugation appearance determination Ordered By: Briana Gordon on 92-94-5978Jrsifznrjc (Spun CSF)Cerebrospinal fluid post-centrifugation appearance determinationColorUniversity Hospitals Geneva Medical CenterCerebrospinal fluid sample tube volume measurementOrdered By: Briana Gordon on 96-43-8782Sfakbctk volume (CSF)Cerebrospinal fluid sample tube volume measurementSt. Anthony'S HospitalDetermination of appearance of cerebrospinal fluidOrdered By: Briana Gordon on 07-27-2024 Appearance (CSF)Cerebrospinal fluid appearance descriptionCleDunlap Memorial HospitalGlucose [Mass/volume] in Cerebral spinal fluidOrdered By: Briana Gordon on 09-40-0601Tyysxah (CSF) [Mass/Vol]Glucose [Mass/volume] in Cerebral spinal tvogc18-85TfklejjbcSt. Anthony'S HospitalGlucose, Spinal Fluidon 57-44-2965Wsertqx, Spinal Fluid54 mg/tNUqhliu88-97Wfh [facility] Physician GroupComment on above:Performed By: #### AERC, CSFCCNO #2, CSFCCDIFF, CSF TP, CSF GLU, CSF PCR PANEL, GS #### [place] [address] USAGram Stainon 68-03-9598Vrnfewdrnft observation Gram stain Nom (Unsp spec)CULTURE ORDER REQUIRED WITH CSF PCR PANEL ORDER Tube Number for CSF Microbiology: 4 Gram Stain Result Rare White Blood Cells No Bacteria Seen PERFORMED BY: [place] [address] PATHOLOGIST [employer] MOY HURTADO M.D.NormalThe [facility] Physician GroupComment on above: Performed By: #### AERC, CSFCCNO #2, CSFCCDIFF, CSF TP, CSF GLU, CSF PCR PANEL, GS #### [place] [address] USAIR guided lumbar puncture LPon 95-30-7055OT guided lumbar puncture [facility] [place] [address] [place] [address] Interventional Radiology Rpt Signed Patient: Robles Yen MR#: [id number] : 1985 Acct:[id number] Age/Sex: 39 / F ADM Date: 07/27/24 Loc: XD [facility]: Briana Gordon DO Copies [...] Good M.D. 07/27/2024 11:27 AM Dictation Location: [place] [address] Transcribed By: [facility] 07/27/24 1127 Dictated By: Vincenzo Good II, MD 07/27/24 112 Signed By: 07/27/[address] [place] [address] Physician GroupInterventional radiology report Ordered By: Vincenzo Good on 43-65-5560Zrydr reportACMC HE[place] [address] Interventional Radiology Rpt Signed Patient: Robles Yen MR#: [id number] : 1985 Acct:[id number] Age/Sex: 39 / F ADM Date: 5 Loc: XD Room: Type: [facility] Attending Dr: Briana Gordon DO Copies to: [...] Good M.D. 07/27/2024 11:27 AM Dictation Location: [place] [address] Transcribed By: [facility] 07/27/241126 Dictated By: Vincenzo Good II, MD 07/27/241124 Signed By: 07/27/241126 [facility] Work Phone: Loi 07-27-2024L Specimen: [id number] Received: 07/30/24 Status: STEPHAN Carty Num: [id number] Spec Type: Cytology Subm Dr: Vincenzo Good II, MD Tissues: A CSF (CSF) Procedures: Cyto Prepstain, DIFF QWIK, PAPSTN Age/ Patient Sex Location Account Attending Physician Robles Yen 39/F XD [id number] Briana Gordon DO SPEC NUM: [id number] RECD: 07/30/24 STATUS: STEPHAN CARTY NUM: [id number] JEWEL: 07/27/24-1041 [facility] DR: Vincenzo Good II, MD ENTERED: 07/30/[address] [facility] [address]: Briana Gordon DO SPEC TYPE: Cytology DEPT: QUIANA ENTERED BY: [id number] RECV BY: [id number] ORDERED: Cyto Prepstain, DIFF QWIK, PAPSTN ORDERED: [...] Papanicolaou and Diff-Quik stains. (CA/nh) CPT Codes 09545 Specimen: [id number] Received: 07/30/24 Status: STEPHAN Carty Num: [id number] Spec Type: Cytology Subm Dr: Vincenzo Good II, MD Tissues: A CSF (CSF) Procedures: Cyto Prepstain, DIFF QWIK, PAPSTN Patient: Robles Yen [id number] (Continued) Signed (signature on file) Vignesh Mccollum Jr., MD 07/31/24 1531NormBaptist Health Mariners Hospital Physician GroupManual cerebrospinal fluid erythrocytes count (number/volume)Ordered By: Briana Gordon on 07-27-2024 RBC Manual cnt (CSF) [#/Vol]Manual cerebrospinal fluid erythrocytes count (number/volume)St. [facility]'S HospitalComment on above:The reference interval and other method performance specifications have not been established for this body fluid. The test result must be integrated into the clinical context for interpretation.No Panel InformationOrdered By: Briana Gordon on 84-77-8527MIW Tube NumberTube number: 4FBrown Memorial Hospital Nucleated cells [#/volume] in Cerebral spinal fluid by Manual countOrdered By: Briana Gordon on 56-98-7560Fqaipzjfq cells Manual cnt (CSF) [#/Vol] Nucleated cells [#/volume] in Cerebral spinal fluid by Manual count0-5FBrown Memorial HospitalProtein [Mass/volume] in Cerebral spinal fluidOrdered By: Briana Gordon on 91-42-6090Uzrpnfw (CSF) [Mass/Vol]Protein [Mass/volume] in Cerebral spinal acjnw99-20SctdbtchrSt. Anthony'S HospitalTotal Protein, Spinal Fluidon 61-48-8675Shqhu Protein, Spinal Fluid19 mg/fFDbyhbp46-91Bbv [facility] Physician GroupComment on above:Result Comment: PERFORMED BY: [place] [address] PATHOLOGIST [employer] MOY HURTADO M.D.Performed By: #### AERC, CSFCCNO #2, CSFCCDIFF, CSF TP, CSF GLU, CSF PCR PANEL, GS #### [place] [address] USAMR venography head wo [facility] 28-36-7815DL venography head wo [facility] [place] [address] [place] [address] MRI Report Signed Patient: Robles Yen MR#: [id number] : 1985 Acct:[id number] Age/Sex: 39 / F ADM Date: 07/10/24 Loc: MR Room: Type: [facility] Attending Dr: Briana Gordon DO Copies to: [...] Beyer M.D. 07/10/2024 8:29 AM Dictation Location: [place] [address] Transcribed By: [facility] 07/10/24 0829 Dictated By: Ollie Beyer MD 07/10/24 0820 Signed By: 07/10/24 0829[facility] Physician GroupSRMCOH PROTHROMBIN TIME INR W/O COUMon 69-61-0192VL Coag (PPP) [Time]10 sNOMS HealthcareTBH INR0.94NOMS HealthcareComment on above:DESIRED INR: 2.0-3.0 CONDITIONS NOT LISTED BELOW 2.5-3.5 FOR PROSTHETIC HEART VALVE REPLACEMENT 2.5-3.5 RECURRENT THROMBOSIS CLINISYNCNOMS HealthcareALL CBC WITH AUTO DIFFon 35-29-4480WDEHMGSNR ABSOLUTE EAFV8UGIU HealthcareBasophils/100 WBC (Bld)0.4 %0.2 - 2.0 %[facility] Eosinophils/100 WBC (Bld)2.7 %0.9 - 7.0 %NOMS HealthcareErythrocyte distribution width (RBC) [Ratio]11.9 %11.0 - 15.0 %NOMS HealthcareHematocrit (Bld) [Volume fraction]38.1 %36.0 - 48.0 %NOMS HealthcareHemoglobin (Bld) [Mass/Vol]13 g/dL 12.0 - 16.0 g/dLNOMS HealthcareIMMATURE GRANULOCYTES ABS AUTO0.02[facility] Immature granulocytes/100 WBC (Bld)0.3 %0.0 - 0.5 %NOMS HealthcareLYMPHOCYTES ABSOLUTE AUTO1.6NOMS HealthcareLymphocytes/100 WBC (Bld)22.4 %20.5 - 60.0 %NOMS [facility] CenterMCH (RBC) [Entitic mass]29.3 pg26.7 - 34.0 pgNOMS [facility]wood Medical CenterMCHC (RBC) [Mass/Vol]34.1 g/dL29.9 - 35.2 g/dLNOSaint Louis University HospitalMCV (RBC) [Entitic vol]86 fL 81.0 - 99.0 fLNOGA HealthcareMONOCYTES ABSOLUTE AUTO0.5[facility] Monocytes/100 WBC (Bld)6.7 %1.7 - 12.0 %NOMS HealthcareNEUTROPHILS ABSOLUTE AUTO 4.7NOMS HealthcareNeutrophils/100 WBC (Bld)67.5 %43.0 - 75.0 %NOMS [facility] Platelet mean volume (Bld) [Entitic vol]11.3 fL9.5 - 13.5 fLNOMS HealthcareTBH EO #0.2NOMS HealthcareTBH FAS758RLSV HealthcareTBH RBC4.43NOMS HealthcareTBH WBC 7NOMS HealthcareCLINISYNCNOMS HealthcareMR HEAD/BRAIN WO CONon 21-66-4608P[address] [address] Magnetic Resonance Report Signed Patient: ROBLES YEN MR#: [id number] : 1985 Acct:[id number] Age/Sex: 39 / F ADM Date: 04/16/24 Loc: MRI Attending Dr: Kika Guaman NP Ordering Physician: Kika Guaman NP Date of Service: 04/16/24 Procedure(s): MR head/brain wo con Accession Number(s): [id number] cc: Kika Guaman NP [place] [address] Patient Name: ROBLES YEN MRN: [facility]:[id number] date: 1985 Sex: F Assigned Patient Location: MRI Current Patient Location: MRI Accession/Order Number: [id number] Exam Date: 04/16/2024 15:32 Report Date: 04/16/2024 [...] Pascale Pena M.D.04/16/2024 3:55 PM Dictation Location: [place] [address] Electronically authenticated by: [id number] Y Date: 04/16/2024 15:55 Dictated By: Pascale Pena M.D. Signed By: 04/16/24 1557 DD/ 155 TD/TT: Furnace Puncher:TBHRadiology, Radiologist, - 04/16/2024 [place] [address] Magnetic Resonance Report Signed Patient: ROBLES YEN MR#: [id number] : 1985 Acct:[id number] Age/Sex: 39 / F ADM Date: 04/16/24 Loc: MRI Attending Dr: Kika Guaman NP Ordering Physician: Kika Guaman NP Date of Service: 04/16/24 Procedure(s): MR head/brain wo con Accession Number(s): [id number] cc: Kika Guaman NP [place] [address] Patient Name: ROBLES YEN MRN: [facility]:[id number] date: 1985 Sex: F Assigned Patient Location: MRI Current Patient Location: MRI Accession/Order Number: [id number] Exam Date: 04/16/2024 15:32 Report Date: 04/16/2024 [...] Pascale Pena M.D.04/16/2024 3:55 PM Dictation Location: [place] [address] Electronically authenticated by: [id number] Y Date: 04/16/2024 15:55 Dictated By: Pascale Pena M.D. Signed By: 04/16/24 1557 DD/ 1555 TD/TT: Furnace Puncher: SWATHI HealthcareRadiology Study observation (narrative)[facility] HEAD/BRAIN WO CONOrdered By: Radiologist Radiology on 21-89-4402YPHE Healthcare Work Phone: XR HAND LT MIN 3 VWSon 40-33-9981UT HAND LT MIN 3 VWS XR HAND [...] Raphael MD on 02/04/2024 5:20 [facility] HospitalMR ANKLE LT WO CONon 75-20-8796Fyu[address] [address] Magnetic Resonance Report Signed Patient: ROBLES YEN MR#: [id number] : 1985 Acct:[id number] Age/Sex: 38 / F ADM Date: 10/17/23 Loc: MRI Attending Dr: Latesha Resendez Ordering Physician: Latesha Resendez Date of Service: 10/17/23 Procedure(s): MR ankle LT wo con Accession Number(s): [id number] cc: Kika Guamna VISUAL STYLIST; Latesha Resendez [address] [address] Patient Name: ROBLES YEN MRN: [id number] date: 1985 Sex: F Assigned Patient Location: MRI Current Patient Location: MRI Accession/Order Number: [id number] Exam Date: 10/17/2023 09:55 Report Date: 10/17/2023 [...] M.D. Signed By: 10/17/232053 DD/ 50 TD/TT: Furnace Puncher:DAXAHRadiology, Radiologist, - 10/17/2023 [place] [address] Magnetic Resonance Report Signed Patient: ROBLES YEN MR#: [id number] : 1985 Acct:[id number] Age/Sex: 38 / F ADM Date: 10/17/23 Loc: MRI Attending Dr: Latesha Resendez Ordering Physician: Latesha Resendez Date of Service: 10/17/23 Procedure(s): MR ankle LT wo con Accession Number(s): [id number] cc: Kika Guaman NP; Latesha Resendez [address] [place] [id number] Patient Name: ROBLES YEN MRN: [id number] date: 1985 Sex: F Assigned Patient Location: MRI Current Patient Location: MRI Accession/Order Number: [id number] Exam Date: 10/17/2023 09:55 Report Date: 10/17/2023 [...] M.D. Signed By: 10/17/232053 DD/ 50 TD/TT: Furnace Puncher: SWATHI [facility] CenterRadiology Study observation (narrative)[facility] ANKLE LT WO CONOrdered By: Radiologist Radiology on 60-12-9682CBJNMercy hospital springfield Work Phone: XR ANKLE LT MIN 3Von 26-01-[place]30[place], [place] [address] XRay Report Signed Patient: ROBLES YEN MR#: [id number] : 1985 Acct:[id number] Age/Sex: 38 / F ADM Date: 07/05/23 Loc: EC Attending Dr: Clau Lindsey D.P.M. Ordering Physician: Clau Lindsey D.P.M. Date of Service: 07/05/23 Procedure(s): XR ankle LT min 3V Accession Number(s): [id number] cc: Kika Guaman NP; Clau Lindsey D.P.M. [address] [place] [id number] Patient Name: ROBLES YEN MRN: [id number] date: 1985 Sex: F Assigned Patient Location: Current Patient Location: EC Accession/Order Number: [id number] Exam Date: 07/05/2023 11:12 Report Date: 07/05/2023 [...] Signed By: 07/05/23 1539 DD/ 1537 TD/TT: Furnace Puncher:DAXAHRadiology, Radiologist, - 07/05/2023 [place] [address] XRay Report Signed Patient: ROBLES YEN MR#: [id number] : 1985 Acct:[id number] Age/Sex: 38 / F ADM Date: 07/05/23 Loc: EC Attending Dr: Clau Lindsey D.P.M. Ordering Physician: Clau Lindsey D.P.M. Date of Service: 07/05/23 Procedure(s): XR ankle LT min 3V Accession Number(s): [id number] cc: Kika Guaman NP; Clau Lindsey D.P.M. [address] [place] [address] Patient Name: ROBLES YEN MRN: [id number] date: 1985 Sex: F Assigned Patient Location: Current Patient Location: Accession/Order Number: [id number] Exam Date: 07/05/2023 11:12 Report Date: 07/05/2023 [...] Signed By: 07/05/23 1539 DD/ 1537 TD/TT: Furnace Puncher: SWATHI HealthcareRadiology Study observation (narrative)[facility] HealthcareXR ANKLE LT MIN 3VOrdered By: Radiologist Radiology on 68-99-8105AGQG [facility] Work Phone: XR ANKLE LT MIN 3Von 79-26-2256[place], [place] [address] XRay Report Signed Patient: ROBLES YEN MR#: [id number] : 1985 Acct:[id number] Age/Sex: 38 / F ADM Date: 06/23/23 Loc: LAB Attending Dr: Kika Guaman NP Ordering Physician: Kika Guaman NP Date of Service: 06/23/23 Procedure(s): XR ankle LT min 3V Accession Number(s): [id number] cc: Kika Guaman NP [place] [id number] Patient Name: ROBLES YEN MRN: [id number] date: 1985 Sex: F Assigned Patient Location: LAB Current Patient Location: LAB Accession/Order Number: [id number] Exam Date: 06/23/2023 11:52 Report Date: 06/23/2023 [...] Signed By: 06/23/23 1308 DD/ 1305 TD/TT: Furnace Puncher:TBHRadiology, Radiologist, - 06/23/[address] [address] XRay Report Signed Patient: ROBLES YEN MR#: [id number] : 1985 Acct:[id number] Age/Sex: 38 / F ADM Date: 06/23/23 Loc: LAB Attending Dr: Kika Guaman VISUAL STYLIST Ordering Physician: Kika Guaman NP Date of Service: 06/23/23 Procedure(s): XR ankle LT min 3V Accession Number(s): [id number] cc: Kika Guaman NP The [address] [address] Patient Name: ROBLES YEN MRN: [id number] date: 1985 Sex: F Assigned Patient Location: LAB Current Patient Location: LAB Accession/Order Number: [id number] Exam Date: 06/23/2023 11:52 Report Date: 06/23/2023 [...] Signed By: 06/23/23 1308 DD/ 1305 TD/TT: Furnace Puncher: SWATHI HealthcareRadiology Study observation (narrative)[facility]XR ANKLE [facility] MIN 3VOrdered By: Radiologist Radiology on 64-00-1333EFRL [facility] Work Phone: XR Knee - left 3 View[address] 41-16-9885[place], [place] [address] XRay Report Signed Patient: ROBLES YEN MR#: [id number] : 1985 Acct:[id number] Age/Sex: 38 / F ADM Date: 06/23/23 Loc: LAB Attending Dr: Kika Guaman VISUAL STYLIST Ordering Physician: Kika Guaman NP Date of Service: 06/23/23 Procedure(s): XR knee LT 3V Accession Number(s): [id number] cc: Kika Guaman NP [place] [id number] Patient Name: ROBLES YEN MRN: [id number] date: 1985 Sex: F Assigned Patient Location: LAB Current Patient Location: LAB Accession/Order Number: [id number] Exam Date: 06/23/2023 11:52 Report Date: 06/23/2023 [...] Signed By: 06/23/23 1258 DD/ 1256 TD/TT: Furnace Puncher:TBHRadiology, Radiologist, - 06/23/2023 [place] [address] XRay Report Signed Patient: ROBLES YEN MR#: [id number] : 1985 Acct:[id number] Age/Sex: 38 / F ADM Date: 06/23/23 Loc: LAB Attending Dr: Kika Guaman VISUAL STYLIST Ordering Physician: Kika Guaman NP Date of Service: 06/23/23 Procedure(s): XR knee LT 3V Accession Number(s): [id number] cc: Kika Guaman NP [address] [address] Patient Name: ROBLES YEN MRN: [id number] date: 1985 Sex: F Assigned Patient Location: LAB Current Patient Location: LAB Accession/Order Number: [id number] Exam Date: 06/23/2023 11:52 Report Date: 06/23/2023 [...] Signed By: 06/23/23 1258 DD/ 1256 TD/TT: Furnace Puncher: SWATHI HealthcareRadiology Study observation (narrative)SWATHI HealthcareXR Knee - left 3 ViewsOrdered By: Radiologist Radiology on 25-60-3095SKKB [facility] Work Phone: Influenza virus B Ag [Presence] in Upper respiratory specimen by Rapid immunoassayon 66-67-9478TNJEO Ag IA.rapid Ql (Nph)Negative [facility] HospitalNo Panel Informationon 08-91-4303Baupyjihc Type A (Rapid)PositiveSt. Anthony'S HospitalPO SARS CoV-2 Antigen NegativeSt. Anthony'S HospitalMM TOMOSYNTHESIS DIAGNOSTIC BIon 46-17-4792[place], [place] [address] Mammography Report Signed Patient: ROBLES YEN MR#: [id number] : 1985 Acct:[id number] Age/Sex: 38 / F ADM Date: 04/13/23 Loc: MAMMO Attending Dr: Kika Guaman NP Ordering Physician: Kika Guaman NP Results: Date of Service: 04/13/23 Follow Up: Procedure(s): MM tomosynthesis diagnostic BI Accession Number(s): [id number] cc: Kika Guaman NP Patient Name: ROBLES YEN MR#: [id number] : 1985 Exam Date: 04/13/2023 Ordering Doctor: [...] prostate cancer at age 72. LOCATION: [facility] BREAST COMPOSITION: Scattered areas fibroglandular density. [...] Signed By: 04/13/23 1608 DD/ 1607 TD/TT: Furnace Puncher:TBHRadiology, Radiologist, - 04/13/2023 [place] [address] Mammography Report Signed Patient: ROBLES YEN MR#: [id number] : 1985 Acct:[id number] Age/Sex: 38 / F ADM Date: 04/13/23 Loc: MAMMO Attending Dr: Kika Guaman NP Ordering Physician: Kika Guaman NP Results: Date of Service: 04/13/23 Follow Up: Procedure(s): MM tomosynthesis diagnostic BI Accession Number(s): [id number] cc: Kika Guaman NP Patient Name: ROBLES YEN MR#: [id number] : 1985 Exam Date: 04/13/2023 Ordering Doctor: [...] prostate cancer at age 72. LOCATION: [facility] BREAST COMPOSITION: Scattered areas fibroglandular [...] Signed By: 04/13/23 1608 DD/ 1607 TD/TT: Furnace Puncher: SWATHI Dunlap Panel InformationOrdered By: Radiologist Radiology on 40-38-9166ARQS [employer] Work Phone: No Panel Informationon 11-42-7981Lhfingavj Study observation (narrative)SWATHI MoralesUS Breast - right limitedon 77-25-0793[place], [place] [address] Ultrasound Report Signed Patient: ROBLES YEN MR#: [id number] : 1985 Acct:[id number] Age/Sex: 38 / F ADM Date: 04/13/23 Loc: MAMMO Attending Dr: Kika Guaman NP Ordering Physician: Kika Guaman NP Date of Service: 04/13/23 Procedure(s): US breast RT limited Accession Number(s): [id number] cc: Kika Guaman NP Patient Name: ROBLES YEN MR#: [id number] : 1985 Exam Date: 04/13/2023 Ordering Doctor: [...] prostate cancer at age 72. LOCATION: [facility] BREAST COMPOSITION: Scattered areas fibroglandular [...] Signed By: 04/13/23 1608 DD/ 1607 TD/TT: Furnace Puncher:TBHRadiology, Radiologist, MD - 04/13/2023 [place] [address] Ultrasound Report Signed Patient: ROBLES YEN MR#: [id number] : 1985 Acct:[id number] Age/Sex: 38 / F ADM Date: 04/13/23 Loc: MAMMO Attending Dr: Kika Guaman NP Ordering Physician: Kika Guaman NP Date of Service: 04/13/23 Procedure(s): US breast RT limited Accession Number(s): [id number] cc: Kika Guaman NP Patient Name: ROBLES YEN MR#: [id number] : 1985 Exam Date: 04/13/2023 Ordering Doctor: [...] prostate cancer at age 72. LOCATION: [facility] BREAST COMPOSITION: Scattered areas fibroglandular [...] Signed By: 04/13/23 1608 DD/ 1607 TD/TT: Furnace Puncher: SWATHI HealthcareLaboratory - Microbiology and Antimicrobial susceptibilityOrdered By: Barbara Zhu on 95-20-7420JAYH-CoV-2 (COVID-19) RNA GERALDINE+probe Ql (Unsp spec)[facility] HospitalNo Panel InformationOrdered By: Barbara Zhu on 70-05-8930Jqvne Strep (POC)[facility]'S HospitalQuick Strep (POC)[facility]'S HospitalIGP,APTIMA HPV,AGE GDLNon 03-29-2023 AGE GDLN ACOG TESTINGNote.NOMS HealthcareComment on above:TESTS RESULT FLAG UNITS REF RANGE LAB Clinician Provided Cytology Information Source.............Cervix;Endocervix No. of containers..01 ThinPrep Vial Age Rik PANDEY Orin... 3065 FLAG LEGEND: L-Low Normal,H-High Normal,LL-Alert Low,HH-Alert High <-Panic Low,>-Panic High,A-Abnormal,AA-Critical Abnormal Performed at: 01 =[address] [address] Verenice Minaya MD, HPV APTIMANegativeNegativeNOMS HealthcareComment on above:This nucleic acid amplification test detects fourteen high- risk HPV types (16,18,31,33,35,39,45,51,52,56,58,59,66,68) without differentiation. Performed at: =[address] [id number] Cemetery Warden: Verenice Minaya MD, Phone: [phone] Performed at: [address] [id number] Cemetery Warden: Vreenice Minaya MD, Phone: [phone] IGP, APTIMA HPV, RFX 16/18,45Note.NOMS HealthcareComment on above:TESTS RESULT FLAG UNITS REF RANGE LAB DIAGNOSIS: 02 NEGATIVE FOR INTRAEPITHELIAL LESION OR MALIGNANCY. CELLULAR CHANGES ASSOCIATED WITH INFLAMMATION ARE PRESENT. Specimen adequacy: 02 Satisfactory for evaluation. No endocervical component is identified. Performed by: 02 Lori L Hathhorn, Plate Embosser (ASC) . 02 Note: Note 02 The [...] <-Panic Low,>-Panic High,A-Abnormal,AA-Critical Abnormal Performed at: [address] [address] Verenice Minaya MD, BROOM-ALONE CERVIX ENDOCERVIX CLINISYNCNOSaint Louis University HospitalMRI KNEE LT CONon 12-88-0385YJK KNEE [place] [employer] CONEXAM: MRI KNEE LT CON REASON FOR [...] Electronically authenticated by: RONALD JOHN Date: 2022-06-01 13:03[facility] - WestCULTURE URINEon 86-03-8119MSVHGJS URINEIsolate 1 Escherichia coli 10,000 cfu/mL of [...] Nitrofurantoin <=16 S F Trimethoprim/Sulfamethoxazole <=20 S FNormalSelect Medical Specialty Hospital - Columbus SouthComment on above:Performed By: #### CVDTBH #### [facility] [address] [place] [address] Dr. Latanya Domínguez URINE PROFILEon 01-55-8382Qqftjfabd Ql (U)NegativeNormal NEGATIVESelect Medical Specialty Hospital - Columbus SouthComment on above:Performed By: #### LEE DONAHUE #### [facility] [address] [place] [address] Dr. Latanya Persaud (U)CLEARNormalCLEARSelect Medical Specialty Hospital - Columbus SouthComment on above: Performed By: #### STEFANIA DONAHUERO #### [facility] [address] [place] [address] Dr. Latanya Garcia (U)BROWNAbnormalYELLOWSelect Medical Specialty Hospital - Columbus SouthComment on above:Performed By: #### STEFANIA DONAHUERO #### [facility] [address] [place] [address] Dr. Latanya Murray micrscopic examination will be performed if indicated. NormalSelect Medical Specialty Hospital - Columbus SouthComment on above:Performed By: #### GODFREY UMAMANDARO #### [facility] [address] [place] [address] Dr. Yilan ChangGlucose Ql (U)NegativeNormalNEGATIVESelect Medical Specialty Hospital - Columbus SouthComment on above:Performed By: #### ERUR, UMICRO #### [facility] [address] [place] [address] Dr. Latanya DonisHemoglobin Ql (U)LARGEAbnormalNEGATIVESelect Medical Specialty Hospital - [facility] South Comment on above:Performed By: #### ERUR, UMICRO #### [facility] [address] [place] [address] Dr. Latanya DonisKetones Ql (U)NegativeNormalNEGATIVESelect Medical Specialty Hospital - Columbus SouthComment on above:Performed By: #### ERUR, UMICRO #### [facility] [address] [place] [address] Dr. Latanya DonisLEUKOCYTESMODERATEAbnormalNEGATIVESelect Medical Specialty Hospital - Columbus SouthComment on above:Performed By: #### ERUR, UMICRO #### [facility] [address] [place] [address] Dr. Latanya DonisNitrite Ql (U)PositiveAbnormalNEGFort Hamilton Hospital Comment on above:Performed By: #### ERUR, UMICRO #### [facility] [address] [place] [address] Dr. Latanya DonispH (U)5.5 [pH]Normal5-9Select [facility] - [facility] SouthComment on above: Performed By: #### ERUR, UMICRO #### [facility] [address] [place] [address] Dr. Latanya DonisProtein (U) [Mass/Vol]100 mg/dLAbnormalNEGATIVE/ TRACEThe [facility] Medical CenterComment on above:Performed By: #### ERUR, UMICRO #### [facility] [address] [place] [address] Dr. Latanya DonisSPEC GRAVITY1.945Lasyqx1.005-<=1.025The [facility] Medical CenterComment on above:Performed By: #### ERUR, UMICRO #### [facility] [address] [place] [address] Dr. Latanya DonisUR MICRO INDINDICATEDNoSt. Francis HospitalComment on above: Performed By: #### ARVIND DONAHUEICRO #### [facility] [address] [place] [address] Dr. Latanya Koch Qn (U)1.0 {Hanny'U}/dLNormal0.2 - 1.0The [facility] Medical CenterComment on above:Performed By: #### GODFREY UMAMANDARO #### [facility] [address] [place] [address] Dr. Latanya Cerda MICROSCOPIC ONLYon 04-29-9217LDLNBAFMVNUEPQOREisskaceZYYK SEENSelect Medical Specialty Hospital - Columbus SouthComuniversity of michigan hospital on above:Performed By: #### STEFANIA DONAHUERO #### [facility] [address] [place] [address] Dr. Latanya Vega identified Cx Nom (U)INDICATEDLake County Memorial Hospital - WestComuniversity of michigan hospital on above:Performed By: #### STEFANIA DONAHUERO #### [facility] [address] [place] [address] Dr. Latanya Chen SEENNormalNONE SEENSelect Medical Specialty Hospital - Columbus SouthComuniversity of michigan hospital on above:Performed By: #### STEFANIA DONAHUERO #### [facility] [address] [place] [address] Dr. Latanya Yousif LM Nom (Urine sed)NONE SEENNormalNONE SEENSelect Medical Specialty Hospital - Columbus SouthComuniversity of michigan hospital on above:Performed By: #### GODFREY UMICRO #### [facility] [address] [place] [address] Dr. Latanya Kaurthelial cells LM Ql (Urine sed)NONE SEENNormalNONE SEEN /RARE The [facility] Medical CenterComuniversity of michigan hospital on above:Performed By: #### GODFREY UMICRO #### [facility] [address] [place] [address] Dr. Latanya Leone SEENNormalNONE SEENSelect Medical Specialty Hospital - Columbus SouthComuniversity of michigan hospital on above:Performed By: #### STEFANIA DONAHUERO #### [facility] [address] [place] [address] Dr. Latanya Aragon (U) [#/Vol]/uLAbnormal0-2The [facility] Medical CenterComment on above:Performed By: #### LEE DONAHUE #### [facility] [address] [place] [address] [address] Latanya DonisWBC5-10AbnormalNONE SEENThe [facility] Medical CenterComment on above: Performed By: #### LEE DONAHUE #### [facility] [address] [address] [address] Latanya DonisCT FACIAL BONES W CONon 16-45-2318AV FACIAL BONES W CON EXAMINATION: CT FACIAL [...] Electronically authenticated by: DEEJAY REES Date: 2021-12-22 22:26[facility] AUTO DIFFon 08-52-7714YVFK #0.0 103/ulNormal0.0-0.1The [facility] Medical CenterComment on above:Performed By: #### CBC #### [facility] [address] [address] [address] Latanya DonisBasophils/100 WBC (Bld)0.3 %Normal0.2-2.0The [facility] Comment on above:Performed By: #### CBC #### [facility] [address] [place] [address] Dr. Latanya Peterson #0.1 103/ulNormal0.0-0.7The [facility] Medical CenterComment on above: Performed By: #### CBC #### [facility] [address] [place] [address] Dr. Latanya Stevensonosinophils/100 WBC (Bld)0.6 %Critically low0.9-7.0The [facility] Medical CenterComment on above:Performed By: #### CBC #### [facility] [address] [place] [address] Dr. Latanya Stevensonrythrocyte distribution width (RBC) [Ratio]12.2 %Thtlcm65.0-15.0 The [facility] Medical CenterComment on above:Performed By: #### CBC #### [facility] [address] [place] [address] Dr. Latanya DonisHematocrit (Bld) [Volume fraction]37.1 %Aezuym26.0-48.0The [facility] Medical CenterComment on above:Performed By: #### CBC #### [facility] [address] [place] [address] Dr. Latanya DonisHemoglobin (Bld) [Mass/Vol]12.5 g/yPCvumee28.0-16.0The [facility] Medical CenterComment on above:Performed By: #### CBC #### [facility] [address] [place] [address] Dr. Latanya Yanes #0.03 10e3/ulNormal0.00-0.03The [facility] Medical CenterComment on above:Performed By: #### CBC #### [facility] [address] [place] [address] Dr. Latanya Yanes %0.3 %Normal0.0-0.5The [facility] Medical CenterComment on above: Performed By: #### CBC #### [facility] [address] [address] [address] Latanya Sloan #1.6 103/ulNormal1.2-3.8The [facility] Medical CenterComment on above:Performed By: #### CBC #### [facility] [address] [address] [address] Latanya Simsmphocytes/100 WBC (Bld)17.1 %Critically low20.5-60.0The [facility] Medical CenterComment on above:Performed By: #### CBC #### [facility] [address] [address] [address] Latanya Dang DIFF REQNONormalThe [facility] Medical CenterComment on above: Performed By: #### CBC #### [facility] [address] [place] [address] Dr. Latanya Carroll (RBC) [Entitic mass]29.3 njSnmfbg39.7-34.0The [facility] Medical CenterComment on above:Performed By: #### CBC #### [facility] [address] [place] [address] Dr. Latanya Carroll (RBC) [Mass/Vol]33.7 g/vKNlchbh63.9-35.2The [facility] Medical CenterComment on above:Performed By: #### CBC #### [facility] [address] [place] [address] Dr. Latanya Carroll (RBC) [Entitic vol]86.9 wBNrkpry01.0-99.0The [facility] Medical CenterComment on above:Performed By: #### CBC #### [facility] [address] [place] [address] Dr. Latanya Pal #0.8 103/ulNormal0.3-0.8The [facility] Medical CenterComment on above:Performed By: #### CBC #### [facility] [address] [place] [address] Dr. Latanya Blevinsocytes/100 WBC (Bld)8.2 %Normal1.7-12.0The [facility] Comment on above:Performed By: #### CBC #### [facility] [address] [place] [address] Dr. Latanya Lazar #7.0 103/ulCritically high1.4-6.5The [facility] Comment on above:Performed By: #### CBC #### [facility] [address] [place] [address] Dr. Latanya Garciautrophils/100 WBC (Bld)73.5 %Wzjcps70.0-75.0The [facility] Medical CenterComment on above:Performed By: #### CBC #### [facility] [address] [place] [address] Dr. Latanya Colonlet mean volume (Bld) [Entitic vol]11.4 fLNormal9.5-13.5The [facility] CenterComment on above:Performed By: #### CBC #### [facility] [address] [place] [address] Dr. Latanya DonisPLT266 103/zgDcwcgo477-860Uax [facility] CenterComment on above: Performed By: #### CBC #### [facility] [address] [place] [address] Dr. Latanya DonisRBC4.27 106/ulNormal4.20-5.40The [facility] CenterComment on above:Performed By: #### CBC #### [facility] [address] [place] [address] Dr. Latanya DonisWBC9.5 103/ulNormal4.0-11.0The [facility] CenterComment on above: Performed By: #### CBC #### [facility] [address] [place] [address] Dr. Latanya Baca BLOODon 40-61-6200Gxtutxotfod examination of blood, cultureCulture Observations: NO GROWTH AT 5 DAYS.NormalThe [facility] Medical CenterComment on above:Performed By: #### CVDTBH #### [facility] [address] [place] [address] Dr. Latanya DonisMicroscopic examination of blood, cultureCulture Observations: NO GROWTH AT 5 DAYS.NormalThe [facility] CenterComment on above:Performed By: #### CVDTBH #### [facility] [address] [place] [address] Dr. Latanya DonisPROF CHEM 8 (BAS METB)on 40-46-1482Wfquk gap [Moles/Vol]12.1 mmol/LNormalThe [facility] CenterComment on above:Performed By: #### BMP #### [facility] [address] [place] [address] Dr. Latanya DonisCalcium [Mass/Vol]8.9 mg/dLNormal8.5-10.1The [facility] Comment on above:Performed By: #### BMP #### [facility] [address] [place] [address] Dr. Latanya DonisChloride [Moles/Vol]107 mmol/GWtbjyr35-792Hxx [facility] Comment on above:Performed By: #### BMP #### [facility] [address] [place] [address] Dr. Latanya DonisCO2 [Moles/Vol]25.3 mmol/IAipnai63.0-32.0The [facility] Comment on above:Performed By: #### BMP #### [facility] [address] [place] [address] Dr. Latanya DonisCreatinine [Mass/Vol]0.99 mg/dLNormal0.55-1.02The [facility] CenterComment on above:Performed By: #### BMP #### [facility] [address] [place] [address] Dr. Latanya StevensonGFR-AF BELGIAN>60Normal>=60The [facility] Medical CenterComment on above:Performed By: #### BMP #### [facility] [address] [place] [address] Dr. Latanya StevensonGFR-NON AF BELGIAN>60Normal>=60The [facility]point Medical CenterComment on above:Performed By: #### BMP #### [facility] [address] [place] [address] Dr. Latanya DonisGlucose [Mass/Vol]94 mg/uNZzdkwc36-361Fwl [facility] Comment on above:Performed By: #### BMP #### [facility] [address] [address] [address] Latanya DonisPotassium [Moles/Vol]3.4 mmol/LCritically low3.5-5.1The [facility] CenterComment on above:Performed By: #### BMP #### [facility] [address] [address] [address] Latanya DonisSodium [Moles/Vol]141 mmol/PQccbys639-691Cbi [facility] Comment on above:Performed By: #### BMP #### [facility] [address] [place] [address] Dr. Latanya DonisUrea nitrogen [Mass/Vol]11.0 mg/dLNormal7.0-18.0The [facility] CenterComment on above:Performed By: #### BMP #### [facility] [address] [place] [address] Dr. Latanya DonisUrea nitrogen/Creatinine [Mass ratio]11.1 mg/mgNormalThe [facility] CenterComment on above:Performed By: #### BMP #### [facility] [address] [place] [address] Dr. Latanya DonisCHLAMYDIA/GONOCOCCUS GERALDINE (SWAB/URINE/PAPon 62-38-1501Wtggrdqng trachomatis, NAANegativeNormalNegativeThe [facility] CenterComment on above: Performed By: #### CVDTBH #### [facility] [address] [place] [address] Dr. Latanya DonisNeisseria gonorrhoeae, NAANegativeNormalNegativeThe [facility] CenterComment on above:Performed By: #### CVDTBH #### [facility] [address] [place] [address] Dr. Latanya SorensonTIS PANEL, ACUTEon 78-17-5599VPnKu ScreenNegativeNormal NegativeThe [facility] Medical CenterComment on above:Performed By: #### HEPACUT #### [facility] [address] [place] [address] Dr. Latanya DonisHCV AB<0.7Ezskor3.0-0.9The [facility] Centerment on above: Performed By: #### HEPACUT #### [facility] [address] [place] [address] Dr. Latanya Guajardo A Ab, IgMNegativeNormalNegativeThe [facility] Medical CenterComment on above:Performed By: #### HEPACUT #### [facility] [address] [place] [address] Dr. Latanya Guajardo B Core Ab, IgMNegativeNormalNegativeSelect [facility] Comment on above:Performed By: #### HEPACUT #### [facility] [address] [place] [address] Dr. Latanya DonisInterpretation:CommentNormalThe [facility] Medical CenterComment on above:Result Comment: Negative Not infected with HCV, unless recent infection is suspected or other evidence exists to indicate HCV infection.Performed By: #### HEPACUT #### [facility] [address] [place] [address] Dr. Latanya DonisHIChintan 1 AND 2 WITH REFLEXon 93-86-7280GEG Screen 4th Generation wRfxNon-ReactiveNormalNon ReactiveThe [facility] CenterComuniversity of [facility] on above:Result Comment: HIV Negative HIV-1/HIV-2 antibodies and HIV-1 p24 antigen were NOT detected. There is no laboratory evidence of HIV infection.Performed By: #### HIV12 #### [facility] [address] [place] [address] Dr. Latanya DonisRPR QUANTon 22-41-4867Nylug Plasma Reagin, QuantNon-Reactive NormalNonRea<1:1The [facility] on above:Result Comment: Please Note: This test does not meet current guidelines for screening and diagnosis of syphilis. This test is intended for following treatment response in patients being treated for syphilis infection. To screen for syphilis infection, a reflex cascade that includes both RPR and a treponema-specific assay should be utilized, such as Treponema pallidum (Syphilis) Screening [place] (296437) or Rapid Plasma Reagin (RPR) Test With Reflex to Quantitative RPR and Confirmatory Treponema pallidum Antibodies (988512).Performed By: #### CVDTBH #### [facility] [address] [address] [address] Latanya DonisVAGINITIS/VAGINOSIS DNA PROBEon 95-43-7505Rqvmqrj speciesNegative NormalNegativeSelect Medical Specialty Hospital [facility] SouthComment on above:Performed By: #### VAGINT #### [facility] [address] [place] [address] Dr. Latanya Bowmandnerella vaginalisNegativeNormalNegativeSelect [facility] Comment on above:Performed By: #### VAGINT #### [facility] [address] [place] [address] Dr. Latanya DonisTrichomonas vaginalisNegativeNormalNegativeSelect [facility] Comment on above:Performed By: #### VAGINT #### [facility] [address] [place] [address] Dr. Latanya DonisCovid-19 PCR (CVDTB)on 07-32-4367BAVU-CoV-2 (COVID-19) RNA GERALDINE+probe Ql (Unsp spec)DetectedCritically abnormalNOT DETECTEDThe [facility] Medical CenterComment on above:Result Comment: This test is not yet approved or cleared by the [place] FDA. When there are no FDA-approved or cleared tests available, and other criteria are met, FDA can make tests available under an emergency access mechanism called an Emergency Use Authorization (EUA). The EUA for this test is supported by the Jbphh of Health and Human Service's declaration that [...] longer be used).Performed By: #### CVDTBH #### [facility] [address] [place] [address] Dr. Latanya DonisINSULINon 24-40-7865Mnaeupc6.9 uIU/mLNormal2.6-24.9[facility] SouthComment on above:Performed By: #### INSULIN #### [facility] [address] [address] [address] Latanya DonisFREE T4on 56-06-9684Ohhg T4 [Mass/Vol]0.79 ng/dLNormal0.76-1.46 [facility] SouthComment on above:Performed By: #### CVDTBH #### [facility] [address] [address] [address] Latanya DonisGLYCOHEMOGLOBIN A1Con 71-43-8793MTP RECOMMENDATIONSEE BELOWNormal The [facility] CenterComuniversity of [facility] hospital on above:Result Comment: ADA RECOMMENDED LIMIT 4.0 - 6.0 ADA THERAPEUTIC TARGET < 7.0 ACTION SUGGESTED > 7.0Performed By: #### A1C #### [facility] [address] [place] [address] Dr. Latanya DonisGlucose [Mass/Vol]91 mg/dLNormalThe [facility] Medical CenterComment on above:Performed By: #### A1C #### [facility] [address] [place] [address] Dr. Latanya DonisHbA1c (Bld) [Mass fraction]4.8 %Normal4.5-6.2The [facility] Medical CenterComment on above:Performed By: #### A1C #### [facility] [address] [place] [address] Dr. Latanya DonisPROF CHEM 8 (BAS METB)on 31-66-2314Fzdhs gap [Moles/Vol]10.0 mmol/LNormalSelect Medical Specialty Hospital [facility] SouthComment on above:Performed By: #### CVDTBH #### [facility] [address] [place] [address] Dr. Latanya DonisCalcium [Mass/Vol]9.8 mg/dLNormal8.5-10.1[facility] Comment on above:Performed By: #### CVDTBH #### [facility] [address] [place] [address] Dr. Latanya DonisChloride [Moles/Vol]103 mmol/CCkufsu76-680VvmSelect Medical Specialty Hospital [facility] Comment on above:Performed By: #### CVDTBH #### [facility] [address] [address] [address] Latanya DonisCO2 [Moles/Vol]30.4 mmol/REaznrq71.0-32.0The [facility] Comment on above:Performed By: #### CVDTBH #### [facility] [address] [address] [address] Latanya DonisCreatinine [Mass/Vol]0.92 mg/dLNormal0.55-1.02[facility] SouthComment on above:Performed By: #### CVDTBH #### [facility] [address] [address] [address] Latanya StevensonGFR-AF BELGIAN>60Normal>=60The [facility] Medical CenterComment on above:Performed By: #### CVDTBH #### [facility] [address] [address] [address] Latanya StevensonGFR-NON AF BELGIAN>60Normal>=60The [facility] Medical CenterComment on above:Performed By: #### CVDTBH #### [facility] [address] [address] [address] Latanya DonisGlucose [Mass/Vol]93 mg/iULklccv00-278TtnSelect Medical Specialty Hospital [facility] Comment on above:Performed By: #### CVDTBH #### [facility] [address] [address] [address] Latanya DonisPotassium [Moles/Vol]4.4 mmol/LNormal3.5-5.1[facility] Comment on above:Performed By: #### CVDTBH #### [facility] [address] [address] [address] Latanya DonisSodium [Moles/Vol]139 mmol/OMgride588-263GudSelect Medical Specialty Hospital [facility] Comment on above:Performed By: #### CVDTBH #### [facility] [address] [address] [address] Latanya DonisUrea nitrogen [Mass/Vol]11.0 mg/dLNormal7.0-18.0The [facility] Medical CenterComment on above:Performed By: #### CVDTBH #### [facility] [address] [address] [address] Latanya DonisUrea nitrogen/Creatinine [Mass ratio]12.0 mg/mgNormalThe [facility] Medical CenterComment on above:Performed By: #### CVDTBH #### [facility] [address] [address] [address] Latanya Green 16-39-8785BAW1.496 uIU/mLNormal0.358-3.740The [facility] Medical CenterComment on above:Performed By: #### CVDTBH #### [facility] [address] [address] [address] Latanya Sutton Quick Testingon 29-68-6274MbgxaeYjafeiflGbzoz [employer] Other COBandwave SystemsD Quick Testingon 69-36-2327WjkspoIszxsndvVeryuHyperActive Technologies Other Chlamydia/GC DNA, Uron 83-36-5613Bkldaccvn Probe, Ur NegativeNormalNEGMercy Greenwich HospitalComuniversity of [facility] hospital on above:Result Comment: CHLAMYDIA TRACHOMATIS DNA [...] nucleic acid target.Performed By: #### UCGP #### [facility] [address] [place] [address] Cemetery Warden: Aníbal Ryderhea Probe, UrNegativeNormalNEGMercy [facility] on above:Result Comment: NEISSERIA GONORRHOEAE DNA not [...] nucleic acid target.Performed By: #### UCGP #### [address] [address] Cemetery Warden: Yordy Ryder,Urineon 20-95-0074Gmsn,UrineSpecimen Description .CLEAN CATCH URINE Special Requests NOT REPORTED Culture NO SIGNIFICANT GROWTH Report Status FINAL 01/04/2020NoSt. Mary's Medical CenterComment on above: Performed By: #### PPPVP #### [address] [address] Cemetery Warden: Ezio Calvillo MDHemoglobin A1Con 62-54-7969BqR6u (Bld) [Mass fraction]4.8 %Normal4.0-6.0[facility] HospitalComment on above:Performed By: #### AHCV GLYHGB, HIVCMB #### [address] [address] Cemetery Warden: Ezio Calvillo MDHbA1c (Bld) [Mass fraction]91 mg/dLSelect Medical Cleveland Clinic Rehabilitation Hospital, Edwin ShawComuniversity of michigan hospital on above:Result Comment: The ADA and AACC recommend providing the estimated average glucose result to permit better patient understanding of their HBA1c result.Performed By: #### AHCV, GLYHGB, HIVCMB #### [address] [address] Cemetery Warden: Ezio Calvillo MDHIV Ag/Cayden 67-79-9752WZX Ag/AbNONREACTIVENormal [facility] on above:Result Comment: No laboratory evidence of HIV infection. If acute HIV infection is suspected, consider testing for HIV-1 RNA.Performed By: #### AHCV, GLYHGB, HIVCMB #### [address] [address] Cemetery Warden: Bunny Ryder C Abon 68-88-5116Ilr C AbNONREACTIVENormalNR [facility] HospitalComment on above:Result Comment: The hepatitis C [...] PCR.Performed By: #### AHCV, GLYHGB, HIVCMB #### [facility] [employer] [address] [place] [address] Cemetery Warden: DALI RyderBath [facility] 01-03-2020T.pallidum Ab ScreenNONREMarietta Osteopathic ClinicComuniversity of mich[facility] hospital on above:Result Comment: T. pallidum antibodies are not detected. There is no serological evidence of infection with T. pallidum (early primary syphilis cannot be excluded). Retest in 2-4 weeks if syphilis is clinically suspect.Performed By: #### PRENAT #### [address] [address] Cemetery Warden: Ezio Calvillo MD [address] [id number] Cemetery Warden: Bunny Licea Surf AgNONZanesville City HospitalComuniversity of michigan hospital on above:Performed By: #### PRENAT #### [address] [address] Cemetery Warden: Ezio Calvillo MD [address] [place] [address] Cemetery Warden: Kulwinder Licea Ab, IgG68.2 IU/mLNSelect Medical OhioHealth Rehabilitation HospitalComuniversity of [facility] hospital on above:Result Comment: REFERENCE RANGE: <5.0 NON-REACTIVE (non-immune) 5.0 TO 9.9 EQUIVOCAL >=10.0 REACTIVE (immune)Performed By: #### PRENAT #### [address] [address] Cemetery Warden: Ezio Calvillo MD [address] [place] [address] Cemetery Warden: MARY Licea Screenon 42-54-4867WNB Ag/AbNONREACTIVE NONREACTIVENew [facility]acon[facility] Hospital on above:No laboratory evidence of HIV infection. If acute HIV infection is suspected, consider testing for HIV-1 RNA. Hepatitis C Antibodyon 45-05-7299Vnqomfbfl C AbNONREACTIVENONREACTIVESolgohachia, KYComuniversity of mich[place] hospital on above: The hepatitis C procedure [...] ordering HCV RNA by PCR. PROFILE Ion 66-36-2721Ilyozhvxw (Bld) [#/Vol]0.03 10*3/[facility], KYBasophils/100 WBC (Bld)0 %0 - 2 %[facility], NEDifferential TypeNOT REPORTEDAkron Children's Hospital, KYEosinophils (Bld) [#/Vol]0.12 10*3/[facility], NEEosinophils/100 WBC (Bld)2 %1 - 4 %[place], KYErythrocyte distribution width (RBC) [Ratio]12.4 %11.8 - 14.4 %[place] Hematocrit (Bld) [Volume fraction]41.5 %36.3 - 47.1 %[place] Hemoglobin (Bld) [Mass/Vol]13.5 g/dL11.9 - 15.1 g/dLSolgohachia, [place] Hepatitis B Surface AgNONREACTIVENONREACTIVEAkron [facility] Hospital, NEImmature granulocytes (Bld) [#/Vol]0 %0[facility], NEImmature granulocytes (Bld) [#/Vol]10*3/[facility], KYLymphocytes (Bld) [#/Vol]2.14 10*3/[facility], KYLymphocytes/100 WBC (Bld)28 %24 - 43 %[place], KYMCH (RBC) [Entitic mass]28.9 pg25.2 - 33.5 pgSolgohachia, KYMCHC (RBC) [Mass/Vol]32.5 g/dL28.4 - 34.8 g/dLSolgohachia, KYMCV (RBC) [Entitic vol] 88.9 fL82.6 - 102.9 fLSolgohachia, KYMonocytes (Bld) [#/Vol]0.63 10*3/uL [place], KYMonocytes/100 WBC (Bld)8 %3 - 12 %[place] Platelet mean volume (Bld) [Entitic vol]12.3 fL8.1 - 13.5 fLSolgohachia, [place] Platelets (Bld) [#/Vol]NOT REPORTEDSolgohachia, KYPlatelets (Bld) [#/Vol] 213 10*3/uLSolgohachia, KYRBC (Bld) [#/Vol]4.67 10*6/uL3.95 - 5.11 m/uL [facility] morphology finding Nom (Bld)NOT REPORTEDSolgohachia, KYRubella virus IgG Ql (S)68.2IU/mLSolgohachia, KYComuniversity of mich[place] hospital on above: REFERENCE RANGE: <5.0 NON-REACTIVE (non-immune) 5.0 TO 9.9 EQUIVOCAL >=10.0 REACTIVE (immune) Segmented neutrophils/100 WBC (Bld)62 %36 - 65 %[place], KYSegs Absolute4.69[place], KYT. pallidum, IgGNONREACTIVENONREACTIVESolgohachia, KYComuniversity of [place] hospital on above: T. pallidum antibodies are not detected. There is no serological evidence of infection with T. pallidum (early primary syphilis cannot be excluded). Retest in 2-4 weeks if syphilis is clinically suspect. WBC (Bld) [#/Vol]7.6 10*3/uLSolgohachia, KYWBC (Bld) [#/Vol]0.0 10*3/uL0.0 per 100 WBCMercy Health- [place], KYWBC MorphologyNOT REPORTEDAkron Children[facility] Hospital, [place] TYPE AND SCREENon 13-82-7078LER/RhNegativeAkron Children's Hospital, NEPrenatal Profileon 98-84-7688Bxw. Basophil0.03 k/uLNormal0.00-0.20[facility] Comment on above:Performed By: #### PRENAT #### [address] [place] [address] Cemetery Warden: Ezio Calvillo MD [address] [place] [address] Cemetery Warden: Helene Licea.Imm.Granulocyte<0.72Cqnbew1.00-0.30[facility] HospitalComment on above:Performed By: #### PRENAT #### [address] [address] Cemetery Warden: Ezio Calvillo MD [address] [place] [address] Cemetery Warden: Helene Licea.Neutrophil (Seg)4.69 k/uLNormal1.50-8.10[facility] HospitalComment on above:Performed By: #### PRENAT #### [address] [address] Cemetery Warden: Ezio Calvillo MD [address] [place] [address] Cemetery Warden: Chase Glez MDBasophils/100 WBC (Bld)0 %Normal0-2MUK HealthcareComment on above:Performed By: #### PRENAT #### [address] [address] Cemetery Warden: Ezio Calvillo MD [address] [place] [address] Cemetery Warden: Chase Glez MDEosinophils (Bld) [#/Vol]0.12 10*3/uLNormal 0.00-0.44[facility] HospitalComment on above:Performed By: #### PRENAT #### [address] [address] Cemetery Warden: Ezio Calvillo MD [address] [place] [id number] Cemetery Warden: Chase Glez MDEosinophils/100 WBC (Bld)2 %Normal1-4[facility] HospitalComment on above:Performed By: #### PRENAT #### [address] [address] Cemetery Warden: Ezio Calvillo MD [address] [place] [place] [id number] Cemetery Warden: Chase Glez MDErythrocyte distribution width (RBC) [Ratio]12.4 %Wezyqv49.8-14.4[facility] HospitalComment on above:Performed By: #### PRENAT #### [address] [address] Cemetery Warden: Ezio Calvillo MD [address] [place] [address] Cemetery Warden: Chase Glez MDHematocrit (Bld) [Volume fraction]41.5 %Normal 36.3-47.1MAdena Pike Medical Center HospitalComment on above:Performed By: #### PRENAT #### [address] [address] Cemetery Warden: Ezio Calvillo MD [address] [place] [address] Cemetery Warden: Chase Glez MDHemoglobin (Bld) [Mass/Vol]13.5 g/dLNormal 11.9-15.1MAdena Pike Medical Center HospitalComment on above:Performed By: #### PRENAT #### [address] [address] Cemetery Warden: Ezio Calvillo MD [address] [place] [id number] Cemetery Warden: Chase Glez MDImmature granulocytes (Bld) [#/Vol]0 %Normal0 [facility] HospitalComment on above:Performed By: #### PRENAT #### [facility] [address] [place] [address] Cemetery Warden: Ezio Calvillo MD [address] [place] [id number] Cemetery Warden: Chase Glez MDLymphocytes (Bld) [#/Vol]2.14 10*3/uLNormal 1.10-3.70[facility] HospitalComment on above:Performed By: #### PRENAT #### [facility] [address] [place] [address] Cemetery Warden: Ezio Calvillo MD [address] [place] [id number] Cemetery Warden: Chase Glez MDLymphocytes/100 WBC (Bld)28 %Qxetwo79-54GkljoCleveland Clinic Mercy HospitalComment on above:Performed By: #### PRENAT #### [facility] [address] [place] [address] Cemetery Warden: Ezio Calvillo MD [address] [place] [facility] Cemetery Warden: ELENA Licea (RBC) [Entitic mass]28.9 rgJdmfck18.2-33.5 [facility] HospitalComment on above:Performed By: #### PRENAT #### [facility] [address] [place] [address] Cemetery Warden: Ezio Calvillo MD [address] [place] [id number] Cemetery Warden: EELNA LiceaC (RBC) [Mass/Vol]32.5 g/jCMbpznk10.4-34.8 [facility] HospitalComment on above:Performed By: #### PRENAT #### [address] [place] [address] Cemetery Warden: Ezio Calvillo MD [address] [place] [phone] Cemetery Warden: MARY LiceaCV (RBC) [Entitic vol]88.9 aZRdbkdd59.6-102.9 [facility] HospitalComment on above:Performed By: #### PRENAT #### [address] [address] Cemetery Warden: Ezio Calvillo MD [address] [place] [address] Cemetery Warden: MARY Liceaonocytes (Bld) [#/Vol]0.63 10*3/uLNormal 0.10-1.20[facility] HospitalComment on above:Performed By: #### PRENAT #### [address] [address] Cemetery Warden: Ezio Calvillo MD [address] [place] [id number] Cemetery Warden: MARY Liceaonocytes/100 WBC (Bld)8 %Normal3-12[facility] HospitalComment on above:Performed By: #### PRENAT #### [address] [address] Cemetery Warden: Ezio Calvillo MD [address] [place] [phone] Cemetery Warden: Chase Glez MDNeutrophil (Seg)62 %Kfjpxw49-18Ieeyu Tiffin HospitalComment on above:Performed By: #### PRENAT #### [address] [address] Cemetery Warden: Ezio Calvillo MD [address] [place] [address] Cemetery Warden: GÉNESIS Licea Automated0.0 per 100 WBCNormal0.0[facility] HospitalComment on above:Performed By: #### PRENAT #### [facility] [address] [place] [address] Cemetery Warden: Ezio Calvillo MD [address] [place] [id number] Cemetery Warden: Jesus Licea mean volume (Bld) [Entitic vol]12.3 fL Normal8.1-13.5[facility] HospitalComment on above:Performed By: #### PRENAT #### [address] [address] Cemetery Warden: Ezio Calvillo MD [address] [place] [address] Cemetery Warden: Allen Licea (Bld) [#/Vol]213 10*3/pTPvsygg542-706 [facility] HospitalComment on above:Performed By: #### PRENAT #### [facility] [address] [place] [address] Cemetery Warden: Ezio Calvillo MD [address] [place] [place] [address] Cemetery Warden: HEIDE Licea (Bld) [#/Vol]4.67 10*6/uLNormal3.95-5.11[facility] HospitalComment on above:Performed By: #### PRENAT #### [address] [address] Cemetery Warden: Ezio Calvillo MD [address] [place] [address] Cemetery Warden: Chase Newton, MDWBC (Bld) [#/Vol]7.6 10*3/uLNormal3.5-11.3Mer[facility] [place] HospitalComment on above:Performed By: #### PRENAT #### [facility] [address] [place] [address] Cemetery Warden: Ezio Calvillo MD [address] [place] [address] Cemetery Warden: Chidi Licea PerformedNOT REPORTEDNormalMercy Memphis HospitalComment on above:Performed By: #### PRENAT #### [facility] [address] [place] [address] Cemetery Warden: Ezio Calvillo MD [address] [place] [address] Cemetery Warden: Ronna Licealets (Bld) [#/Vol]NOT REPORTEDNormalMercy [place] HospitalComment on above:Performed By: #### PRENAT #### [facility] [address] [place] [address] Cemetery Warden: Ezio Calvillo MD [address] [place] [address] Cemetery Warden: HEIDE Licea morphology finding Nom (Bld)NOT REPORTED NormalSelect Medical Specialty Hospital - [facility]on HospitalComment on above:Performed By: #### PRENAT #### [facility] [address] [place] [address] Cemetery Warden: Ezio Calvillo MD [address] [place] [address] Cemetery Warden: YANIRA Licea MorphologyNOT REPORTEDNormalSelect Medical Specialty Hospital [facility] HospitalComment on above:Performed By: #### PRENAT #### [facility] [address] [place] [address] Cemetery Warden: Ezio Calvillo MD [address] [place] [address] Cemetery Warden: DALI Licearenatal Type + Scrnon 37-94-0320Qafdqmlb Type + ScrnNegativeNormalMercy [place] HospitalComment on above:Performed By: #### PRTYS #### [facility] [address] [place] [address] Cemetery Warden: Chase Glez MDToxicology Romie, Urineon 01-02-2020 Amphetamine(s),UrNegativeNormalNEGMercy [place] HospitalComment on above: Performed By: #### CPDAU #### [address] [place] [address] Cemetery Warden: Chase Glez MDBarbiturate(s),UrNegativeNormalNEGMercy [place] HospitalComment on above:Performed By: #### CPDAU #### [address] [place], [place] [address] Cemetery Warden: Chase Glez MDBenzodiazepine(s)NegativeNormalNEGMercy [place] HospitalComment on above:Performed By: #### CPDAU #### [address] [place], [place] [address] Cemetery Warden: Chase Glez MDBuprenorphrine, UrNegativeNormalNEGMercy Memphis HospitalComment on above:Performed By: #### CPDAU #### [facility] [address] [place], [place] [address] Cemetery Warden: AMNA Liceaannabinoid(s),UrNegativeNormalNEGMercy Memphis HospitalComment on above:Performed By: #### CPDAU #### [address] [place], [facility] Cemetery Warden: AMNA Liceaocaine MetaboliteNegativeNormalNEGMercy Memphis HospitalComment on above:Performed By: #### CPDAU #### [address] [place], [facility] Cemetery Warden: MARY Liceaethadone Ql (U)NegativeNormalNEGMercy [place] HospitalComment on above:Performed By: #### CPDAU #### [facility] [address] [place] [address] Cemetery Warden: Chase Glez MDMethamphetamine, UrNegativeNormalNEGMercy [place] HospitalComment on above:Performed By: #### CPDAU #### [facility] [address] [place] [address] Cemetery Warden: Chase Glez MDOpiate(s), UrNegativeNormalNEGMercy Memphis HospitalComment on above:Performed By: #### CPDAU #### [address] [place], [facility] Cemetery Warden: Chase Glez MDOxycodone, UrineNegativeNormalNEGMercy Memphis HospitalComment on above:Performed By: #### CPDAU #### [address] [place] [address] Cemetery Warden: DALI Liceahencyclidine, UrNegativeNormalNEGMercy [place] HospitalComment on above:Performed By: #### CPDAU #### [address] [place], [facility] Cemetery Warden: DALI Licearopoxyphene,UrineNegativeNormalNEGMercy Memphis HospitalComment on above:Performed By: #### CPDAU #### [facility] [address] [place] [address] Cemetery Warden: Chase Glez MDTricyclic antidepressants Screen Ql (U)Negative NormalNEGMercy Memphis HospitalComment on above:Result Comment: Drug screen results are to be used for medical purposes only. All positive results are unconfirmed. Testing for employment or legal uses should be sent to a reference laboratory for confirmation.Performed By: #### CPDAU #### [facility] [address] [place], [place] [id number] Cemetery Warden: Chase Glez MDInterpretive InfoNOT REPORTEDNormalMercy Memphis HospitalComment on above:Performed By: #### CPDAU #### [facility] [address] [place], [place] [id number] Cemetery Warden: Chase Glez, MDMDMA, UrineNOT REPORTEDNormalNEGMercy [place] HospitalComment on above:Performed By: #### CPDAU #### [facility] [address] [place], [place] [id number] Cemetery Warden: Chase Glez MDUrine Drug Screen, [facility] 01-02-2020 Amphetamine Screen, UrNegativeNEGATIVEMercy Health- [place], KYBarbiturate [...] reference laboratory for confirmation. Chlamydia/GC DNA, TPon 55-87-7104Acriujmhr Probe, TPNegativeNormalNEGMercy Memphis HospitalComment on above:Result Comment: CHLAMYDIA TRACHOMATIS DNA [...] nucleic acid target.Performed By: #### PPPVP #### [facility] [facility] [address] [place] [address] [id number] Cemetery Warden: Yoselin Ryder, TPNegativeNoGrant HospitalComment on above:Result Comment: NEISSERIA GONORRHOEAE DNA [...] nucleic acid target.Performed By: #### PPPVP #### [facility] [facility] [address] [place] [address] [id number] Cemetery Warden: AMNA Ryderytologyon 42-41-8535Vqekhuve(NOTE) INTERPRETATION Cervical material, (ThinPrep vial, Imaging-assisted review): Specimen Adequacy: Satisfactory for evaluation. -Endocervical/transformation zone component is absent. Descriptive Diagnosis: Negative for intraepithelial lesion or malignancy. Shift in rebecca suggestive of bacterial vaginosis. Plate Embosser: WILLIAM Mendes(ASCP) Electronically Signed Out vaibhav/10/17/2019 Source: 1: Cervical material, (ThinPrep vial, Imaging-assisted review) Clinical History Oral Contraceptives Z01.419 Routine glass block bender exam without abnormal findings High Risk HPV DNA testing is requested if the diagnosis is ASC-US LMP: 09/17/2019 GYNECOLOGIC CYTOLOGY REPORT Patient Name: ROBLES YEN [facility] Rec: [id number] Path Number: [id number] [facility] CONSULTING PATHOLOGISTS [facility] [place] ANATOMIC PATHOLOGY [address] [place] [phone] NormalCleveland Clinic Mercy HospitalComment on above:Performed By: #### PPPVP #### [facility] [address] [place], [place] [id number] Cemetery Warden: JEROMY Ryder, Quanton 21-62-4585YZZ, Quant<1Normal<5Cleveland Clinic Mercy HospitalComment on above:Result Comment: Non-preg premeno <=5 Postmeno <=8 Male <=3 If HCG results do not concur with clinical observations, additional testing to confirm results is recommended. Elevated results not associated with may be found in patients with other diseases such as tumors of the germ cells (testis, ovaries, etc.), bladder, pancreas, stomach, lungs, and liver.Performed By: #### BHCG #### [facility] [address] [place] [address] [place] [address] Cemetery Warden: Chase Glez MDMarc, Quantitative, PregnancyOrdered By: mAaya Russo on 61-12-3865kDR Quant<1<5 IU/LMercy MOON [employer] Work Phone: comment on above: Non-preg premeno <=5 Postmeno <=8 Male <=3 If HCG results do not concur with clinical observations, additional testing to confirm results is recommended. Elevated results not associated with may be found in patients with other diseases such as tumors of the germ cells (testis, ovaries, etc.), bladder, pancreas, stomach, lungs, and liver. Glucose [place]. 2 hron Hr139 mg/sSQpelsf85-100AjoofCleveland Clinic Mercy Hospital Comment on above:Performed By: #### GLU2HR #### [facility] [address] [place] [address] Cemetery Warden: Chase Glez MD1 Hr143 mg/vHDmnddx80-993ZpegjCleveland Clinic Mercy Hospital Comment on above:Performed By: #### GLU2HR #### [facility] [address] [place] [address] Cemetery Warden: Chase Glez MDFasting91 mg/lHEbmmfe28-02Ktybt [place] [facility] Comment on above:Performed By: #### GLU2HR #### [facility] [address] [place] [address] Cemetery Warden: Chase Glez MDGlucose [Mass/Vol]75 [facility] Comment on above:Performed By: #### GLU2HR #### [facility] [address] [place] [address] Cemetery Warden: Chase Glez MDGlucose Tolerance, 2 Hrson 69-27-7533Kwprafo [Mass/Vol]75 [place], KYGlucose [Mass/Vol]91 mg/dL65 - 99 mg/dLSolgohachia, KYGlucose, GTT - 1 Nmiy966 mg/dL65 - 184 mg/dLSolgohachia, [place] Glucose, GTT - 2 Cbwx461 mg/dL65 - 139 mg/dLSolgohachia, KYGlucose, Whole Bloodon 54-46-4488Jthdwjj [Mass/Vol]88 mg/dL74 - 100 mg/dLSolgohachia, [place] Glucose, Whole Bloodon 26-24-4082Bmpjhfl [Mass/Vol]104 mg/pTHmku88 - 100 mg/dL Solgoh[place], KYInterpretation and review of laboratory resultsAbTwin City Hospital, NEAPTBanner [facility] 13-53-3537hQOM Coag (Bld) [Time]25.3 [place] CBC auto differentialon 04-74-4846Pczdenpdu (Bld) [#/Vol]10*3/[facility], KYBasophils/100 WBC (Bld)0 %0 - 2 %[place], KYDifferential TypeNOT REPORTEDAkron [facility] Hospital, NEEosinophils (Bld) [#/Vol]0.10 10*3/[facility], NEEosinophils/100 WBC (Bld)1 %1 - 4 %[place], KYErythrocyte distribution width (RBC) [Ratio]14.2 %11.8 - 14.4 %[place] Hematocrit (Bld) [Volume fraction]29.5 %Low36.3 - 47.1 %[facility], [place] Hemoglobin (Bld) [Mass/Vol]9.8 g/dLLow11.9 - 15.1 g/dLAkron Children's Hospital, [place] Immature granulocytes (Bld) [#/Vol]1 %Otwg2RuwdhSolgohachia, KYImmature granulocytes (Bld) [#/Vol]0.10 10*3/[facility], NEInterpretation and review of laboratory resultsAbnormalAkron Children's Hospital, NELymphocytes (Bld) [#/Vol]1.31 10*3/[facility], ANDREWSLymphocytes/100 WBC (Bld)18 %Low24 - 43 % [facility], [facility] (RBC) [Entitic mass]29.8 pg25.2 - 33.5 pgSolgohachia, KYMCHC (RBC) [Mass/Vol]33.2 g/dL28.4 - 34.8 g/dLAkron Children's Hospital, NEMCV (RBC) [Entitic vol]89.7 fL82.6 - 102.9 fLAkron Children's Hospital, ANDREWSMonocytes (Bld) [#/Vol]0.73 10*3/[facility], ANDREWSMonocytes/100 WBC (Bld)10 %3 - 12 %[place], KYPlatelet mean volume (Bld) [Entitic vol]11.4 fL8.1 - 13.5 fLAkron Children's Hospital, ANDREWSPlatelets (Bld) [#/Vol]NOT REPORTEDAkron Children's Hospital, KYPlatelets (Bld) [#/Vol]148 10*3/[facility], NERBC (Bld) [#/Vol]3.29 10*6/uLLow3.95 - 5.11 m/[facility], NERBC morphology finding Nom (Bld)NOT REPORTED [facility], NESegmented neutrophils/100 WBC (Bld)70 %High36 - 65 %[facility], NESegs Absolute5.17[facility], NEWBC (Bld) [#/Vol]7.4 10*3/uL [facility]- [place], KYWBC (Bld) [#/Vol]0.0 10*3/uL0.0 per 100 WBCWayne Hospital Health- [place], KYWBC MorphologyNOT REPORTEDMer Health- [place], KYComprehensive metabolic panelon 73-56-2836Xmnudst [Mass/Vol]3.1 g/dLLow3.5 - 5.2 g/dLWayne Hospital Health- [place], [place] Albumin/Globulin [Mass ratio]1.0 {ratio}[facility]- [place], KYALP [Catalytic activity/Vol]124 U/LHigh35 - 104 U/LMoh[facility]health [facility]- [place], KYALT [Catalytic activity/Vol]7 U/L5 - 33 U/LMercy Health- [place], KYAnion gap [Moles/Vol]13 mmol/L9 - 17 mmol/LMercy Health- [place], KYAST [Catalytic activity/Vol]14 U/L<32[facility]- [place], KYBilirubin Ql (U)0.36 mg/dL0.3 - 1.2 mg/dLWayne Hospital Health- [place], [place] Bun/Cre Lxsdh29[facility]- [place], KYCalcium [Mass/Vol]9.3 mg/dL8.6 - 10.4 mg/dL [facility]- [place], KYChloride [Moles/Vol]103 mmol/L98 - 107 mmol/LMohiohealth mansfield hospital Health- [place], KYCO2 [Moles/Vol]19 mmol/LLow20 - 31 mmol/LMpromedica flower hospitaly [facility]- [place], KYCreatinine [Mass/Vol]0.84 mg/dL0.5 - 0.9 mg/dLWayne Hospital Health- [place], KYGFR >60 >60 mL/minWayne Hospital Health- [place], KYGFR Non->60>60 mL/minWayne Hospital Health- [place], KYGlucose [Mass/Vol]77 mg/dL70 - 99 mg/dLWayne Hospital Health- [place], KYPotassium [Moles/Vol]3.8 mmol/L3.7 - 5.3 mmol/LMercy Health- [place], KYProtein [Mass/Vol]6.3 g/dLLow6.4 - 8.3 g/dLWayne Hospital Health- [place], KYSodium [Moles/Vol]135 mmol/L135 - 144 mmol/LMercy Health- [place], KYUrea nitrogen [Mass/Vol]8 mg/dL6 - 20 mg/dLMercy Health- [place], KYDRUG SCREEN MULTI URINEon 87-45-4239Rrnjdzcdvqn Screen, UrNegative NEGATIVEMercy Health- [place], KYBarbiturate Screen, [...] to a reference laboratory for confirmation. Fibrinogenon 64-98-9911Cmcvffsmym313 mg/nTGoje877 - 451 mg/dLAkron Children's Hospital, NEInterpretation and review of laboratory resultsAbnormalAkron Children's Hospital, [place] Lactate Dehydrogenaseon 82-26-1608UU152 U/L135 - 214 U/LMercy HealthRESEARCH BELTON [facility], [place] Metabolic Panelon 75-11-7010URQ/1.73 sq M predicted among non-blacks MDRD (S/P/Bld) [Vol rate/Area][facility], NEComment on above:Average GFR for 30-39 years old: 107 mL/min/1.73sq m Chronic Kidney Disease: <60 mL/min/1.73sq m Kidney failure: <15 mL/min/1.73sq m eGFR calculated using average adult body mass. Additional eGFR calculator available at: http://www.[employer].Streamix/multiple_crcl_2012.htm Stage 1: Some kidney damage normal GFR Stage 2: Mild kidney damage GFR 60-89 Stage 3: Moderate kidney damage GFR 30-59 Stage 4: Severe kidney damage GFR 15-29 Stage 5: Severe kidney damage GFR <15 ESRD - chronic treatment by dialysis or transplant Otheron 10-86-2789Zyltjagjshwqvd and review of laboratory resultsAbnormalHolzer Health System- [place], KYProtime-INRon 11-79-9670XIA Coag (PPP) [Relative time]1.0 {INR} [facility]- [place], KYPT Coag (PPP) [Time]9.8 [facility], NEUric acidon 74-24-3848Eehje [Mass/Vol]6.8 mg/dLHigh2.4 - 5.7 mg/dLAkron Children's Hospital, NEAPTTon 69-84-5197iRLS Coag (Bld) [Time]23.4 [facility], NECBC Auto Differential on 42-10-3419Jhisksozk (Bld) [#/Vol]0.03 10*3/[facility], [place] Basophils/100 WBC (Bld)0 %0 - 2 %[facility], NEDifferential TypeNOT REPORTEDHolzer Health System- [place], KYEosinophils (Bld) [#/Vol]0.12 10*3/[facility], KYEosinophils/100 WBC (Bld)1 %1 - 4 %[facility], NEErythrocyte distribution width (RBC) [Ratio]14.3 %11.8 - 14.4 %[facility], [place] Hematocrit (Bld) [Volume fraction]30.2 %Low36.3 - 47.1 %[facility]- [place], [place] Hemoglobin (Bld) [Mass/Vol]10.3 g/dLLow11.9 - 15.1 g/dLAkron Children's Hospital, [place] Immature granulocytes (Bld) [#/Vol]2 %Emnp4Xkvfa[address] [place] [address]- [place], NEImmature granulocytes (Bld) [#/Vol]0.22 10*3/[facility], NEInterpretation and review of laboratory resultsAbnormalTrumbull Memorial Hospital [place], ANDREWSLymphocytes (Bld) [#/Vol]1.19 10*3/uLHolzer Health System- [place], KYLymphocytes/100 WBC (Bld)13 %Low24 - 43 % [facility] [place], [facility] (RBC) [Entitic mass]30.4 pg25.2 - 33.5 pgTrumbull Memorial Hospital [place], NEMCHC (RBC) [Mass/Vol]34.1 g/dL28.4 - 34.8 g/dLTrumbull Memorial Hospital [place], [facility] (RBC) [Entitic vol]89.1 fL82.6 - 102.9 fLTrumbull Memorial Hospital [place], NEMonocytes (Bld) [#/Vol]0.74 10*3/uLHolzer Health System- [place], NEMonocytes/100 WBC (Bld)8 %3 - 12 %[facility], NEPlatelet mean volume (Bld) [Entitic vol]NOT REPORTED8.1 - 13.5 fL [facility], NEPlatelets (Bld) [#/Vol]NOT REPORTEDAk[facility], [place] Platelets (Bld) [#/Vol]See Reflexed IPF ResultAkron Children's Hospital, NERBC (Bld) [#/Vol]3.39 10*6/uLLow3.95 - 5.11 m/[facility], NERBC morphology finding Nom (Bld)NOT REPORTEDAk[facility], NESegmented neutrophils/100 WBC (Bld)75 %High36 - 65 %[facility], NESegs Absolute6.71[facility] [place], NEWBC (Bld) [#/Vol]0.0 10*3/uL0.0 per 100 WBCHolzer Health System- [place], NEWBC (Bld) [#/Vol]9.0 10*3/uLHolzer Health System- [place], NEWBC MorphologyNOT REPORTEDHolzer Health System- [place], [place] Comprehensive Metabolic Panelon 89-50-4783Kprbsjm [Mass/Vol]3.2 g/dLLow3.5 - 5.2 g/dLHolzer Health System- [place], NEAlbumin/Globulin [Mass ratio]1.0 {ratio}[facility]- [place], KYALP [Catalytic activity/Vol]106 U/LHigh35 - 104 U/LMerc Health- [place], KYALT [Catalytic activity/Vol]7 U/L5 - 33 U/LMpromedica flower hospitaly Health- [place], KYAnion gap [Moles/Vol] 13 mmol/L9 - 17 mmol/LMercy Health- [place], KYAST [Catalytic activity/Vol]11 U/L<32 [facility]- [place], KYBilirubin Ql (U)0.25 mg/dLLow0.3 - 1.2 mg/dLWayne Hospital Health- [place], KYBun/Cre Xhckp6FikDdeyf Health- [place], KYCalcium [Mass/Vol]9.8 mg/dL8.6 - 10.4 mg/dLWayne Hospital Health- [place], KYChloride [Moles/Vol]103 mmol/L98 - 107 mmol/LMohiohealth [facility] Health- [place], KYCO2 [Moles/Vol]19 mmol/LLow20 - 31 mmol/LMoh[facility]health [facility]- [place], [place] Creatinine [Mass/Vol]0.89 mg/dL0.5 - 0.9 mg/dLWayne Hospital [facility]- [place], KYGFR >60>60 mL/minHolzer Health System- [place], KYGFR Non->60>60 mL/min [facility]- [place], KYGlucose [Mass/Vol]103 mg/lSRewn19 - 99 mg/dLHolzer Health System- [place], KYInterpretation and review of laboratory resultsAbnormTrinity Health System East Campus- [place], KYPotassium [Moles/Vol]3.5 mmol/LLow3.7 - 5.3 mmol/LMoh[facility]health [facility] hospital [facility]- [place], KYProtein [Mass/Vol]6.5 g/dL6.4 - 8.3 g/dLWayne Hospital [facility]- [place], KYSodium [Moles/Vol]135 mmol/L 135 - 144 mmol/LMohiohealth mansfield hospital [facility]- [place], KYUrea nitrogen [Mass/Vol]6 mg/dL6 - 20 mg/dL [facility]- [place], KYFibrinogenon 25-76-5022Eyvuxkjczg072 mg/qZYquc789 - 451 mg/dLHolzer Health System- [place], KYImmature Platelet Fractionon 62-39-5279Ayewwlskfcxidc and review of laboratory resultsAbnormalWayne Hospital Health- [place], KYPlatelet, Yrfjxopuabks169OrjRrmxh Health- [place], KYPlatelet, Immature Llxmqqep68.3 %1.1 - 10.3 %[facility], KYLactate Dehydrogenaseon 87-06-4940UY954 U/L135 - 214 U/LMercy Health- [place], KYMetabolic Panelon 92-22-4036NGX/1.73 sq M predicted among non-blacks MDRD (S/P/Bld) [Vol rate/Area][facility], KYComment on above: Stage 1: Some kidney [...] body mass. Additional eGFR calculator available at: http://www.[employer]/multiple_crcl_2012.htm Microscopic Urinalysison 57-44-8321Rsbpozfbs, UANOT REPORTEDNoneMecrystal clinic orthopedic center Health- [place], KYBacteria, UATRACEAbnormalNonAdams [facility]- [place], KYCasts UANOT REPORTED/LPF [facility]- [place], KYCrystals UANOT REPORTEDNone /HPFWayne Hospital [facility]- [place], [place] Epithelial Cells UA5 TO 10[facility]- [place], KYInterpretation and review of laboratory resultsAbnormalWayne Hospital [facility]- [place], KYMucus, UATRACEAbnormalNonAdams County Hospital [facility]- [place], KYOther Observations UANOT REPORTEDNOT REQ.[facility]- [place], KYRBC (U) [#/Vol]NoneMer Health- [place], KYRenal Epithelial, UrineNOT REPORTED0 /HPF [facility]- [place], KYTrichomonas, UANOT REPORTEDNoneMey Health- [place], KYWBC, UA5 TO 10[facility]- [place], KYYeast, UANOT REPORTEDNoneMey Health- [place], [place]-[facility]- [place], KYOtheron 26-15-6718Kqgrdxicwmebsd and review of laboratory results AbnormalMercy Health- [place], KYProtein / creatinine ratio, urineon 12-04-2018 Creatinine, Ur93.6 mg/dL28 - 217 mg/dLMercy Health- [place], KYProtein (U) [Mass/Vol] 14 mg/dLMercy Health- [place], KYComment on above:No normal range established.Urine Total Protein Creatinine Ratio0.15[facility]- [place], KYProtime-INRon 12-04-2018 INR Coag (PPP) [Relative time]0.9 {INR}[facility]- [place], KYPT Coag (PPP) [Time] 9.4 sLowMercy Health- [place], KYUric Acidon 66-65-6347Jnnxm [Mass/Vol]5.7 mg/dL2.4 - 5.7 mg/dLMercy Health- [place], KYUrinalysison 73-32-2990Hrsvoqdfp UrineNegative NEGATIVEMercy Health- [place], KYColor, UAYELLOWYELLOWMercy Health- [place], KYGlucose, Ur NegativeNEGATIVEMercy Health- [place], KYInterpretation and review of laboratory resultsAbnormalMercy Health- [place], KYKetones Ql (U)NegativeNEGATIVEMercy Health- [place], KYLeukocyte esterase Test strip Ql (U)MODERATEAbnormalNEGATIVEMercy Health- [place], KYNitrite, UrineNegativeNEGATIVEMercy Health- [place], KYpH, UA7.5[facility]- [place], KYProtein (U) [Mass/Vol]NegativeNEGATIVEMercy Health- [place], KYSpecific Herman, UA1.010[facility]- [place], KYTurbidity UASLIGHTLY CLOUDYAbnormalCLEAR [facility]- [place], KYUrinalysis CommentsNOT REPORTEDMercy Health- [place], KYUrine Hgb NegativeNEGATIVEMercy Health- [place], KYUrobilinogen, UrineNormalNormalMercy Health- [place], KYGlucose tolerance, 1 houron 79-52-4237PZY ADMNGlucolaMercy Health- [place], [place] Glucose tolerance screen 64v109 mg/hGZyxd77 - 135 mg/dLMercy Health- [place], [place] Interpretation and review of laboratory resultsAbnormalMercy Health- [place], [place] Hemoglobinon 26-22-9165Sgvmbudcrp (Bld) [Mass/Vol]10.8 g/dLLow11.9 - 15.1 g/dL [facility], KYInterpretation and review of laboratory resultsAbnoMercy Health, [place] Vital Signs Date TimeVital SignValuePerforming YqtuvhngdHedeolfu63-38-7670 15:10-0400Body dlywvw422.02 César Aichholz VISUAL STYLIST-C Work Phone: [phone]10-06-2025 15:10-0400 Body mass index (BMI) [Ratio]28.7 kg/m2Lisa Aichholz VISUAL ST[employer]LIST-C Work Phone: [phone]10-06-2025 15:10-0400 Body uvglaf74.48 kgLisa Aichholz VISUAL ST[employer]LIST-C Work Phone: [phone] [address]10-06-2025 15:10-0400 Diastolic blood mm[Hg]Kika Aichholz VISUAL ST[employer]-C Work Phone: [phone] [address]10-06-2025 15:10-0400 Heart rate79 /minLisa Aichholz VISUAL ST[employer]LIST-C Work Phone: [phone] [address]10-06-2025 15:10-0400 Respiratory rate16 /minLisa Aichholz VISUAL STYLIST-C Work Phone: [phone]10-06-2025 15:10-0400 SaO2% (BldA) [Mass fraction]98 %Kika Aichholz V[employer]UAL [employer]-C Work Phone: [phone] [address]10-06-2025 15:10-0400 Systolic blood kkjyvamh590 mm[Hg]Kika Aichholz VISUAL ST[employer]LIST-C Work Phone: [phone]08-18-2025 09:05-0400 Body mass index (BMI) [Ratio]29.72 kg/m2Lisa Aichholz VISUAL STYLIST Work Phone: [facility] springfieldNmhoixidpq44-52-8976 09:05-0400Body temperature 98.49 [degF]Kika Aichholz VISUAL STYLIST Work Phone: [facility] springfieldCkezwieqoa31-90-2907 09:05-0400Body gwzwhy31.11 kgLisa Aichholz VISUAL STYLIST Work Phone: [facility] springfieldHpobkkubyd97-73-4421 09:05-0400Diastolic blood vviifzon78 mm[Hg]Kika Aichholz VISUAL STYLIST Work Phone: [facility] springfieldVhkrufnedd48-38-5855 09:05-0400Heart rate87 /min Kika Aichholz VISUAL STYLIST Work Phone: [place] [address]Aacizhidri98-39-7294 09:05-0400Respiratory rate18 /minLisa Aichholz VISUAL STYLIST Work Phone: [facility] springfieldWmoljlviwe22-65-0353 09:05-7762CyS1% (BldA) [Mass fraction]97 %Kika Aichholz VISUAL STYLIST Work Phone: [facility] springfieldBmtwkebwvj32-95-6782 09:05-0400Systolic blood ypoaktga519 mm[Hg]Kika Aichholz VISUAL STYLIST Work Phone: [facility] springfieldRheddecxoy14-23-0059 11:35-0400Diastolic blood mm[Hg]Kika Aichholz Work Phone: [facility]06-06-2025 11:35-0400 Heart rate65 /minLisa Aichholz Work Phone: [phone] [place], [place] 7805906-06-2025 11:35-0400 Respiratory rate15 /minLisa Aichholz Work Phone: [phone] [place], [place] 7805906-06-2025 11:35-0400 SaO2% (BldA) [Mass fraction]97 %Kika Aichholz Work Phone: [phone] [place], [place] 7805906-06-2025 11:35-0400 Systolic blood shrafdwt991 mm[Hg]Kika Aichholz Work Phone: [phone] [place], [place] 7805906-06-2025 08:44-0400 Body dhqfef059.02 César Guaman Work Phone: [facility]06-06-2025 08:44-0400 Body agsxqs55.82 kgKika Felixz Work Phone: [facility]05-15-2025 09:22-0400 Body mass index (BMI) [Ratio]33.73 kg/m2Kika Schusterfelipe VISUAL STYLIST Work Phone: [facility] springfieldYbcepuwncr34-59-2132 09:22-0400Body temperature 98.29 [degF]Kika Deniz VISUAL STYLIST Work Phone: [facility] springfieldYqhpnjkzft44-09-2072 09:22-0400Body heyslc16.36 kgKika Schusterfelipe VISUAL STYLIST Work Phone: [facility] springfieldYmbtaolzqn00-92-2805 09:22-0400Diastolic blood lpjocixc79 mm[Hg]Kika Schusterfelipe VISUAL STYLIST Work Phone: [facility] springfieldGuizstxzno48-92-1064 09:22-0400Heart rate96 /min Kika Landenfelipe VISUAL STYLIST Work Phone: [facility] springfieldSjciszhuvs62-76-3830 09:22-0400Respiratory rate18 /minLisa Felixyoni VISUAL STYLIST Work Phone: [facility] springfieldQzgmoapfqk61-56-2619 09:22-0606IqI8% (BldA) [Mass fraction]97 %Kika Schusterfelipe VISUAL STYLIST Work Phone: [facility] springfieldWwwwnwlggu24-49-6377 09:22-0400Systolic blood vstmsxik861 mm[Hg]Kika Deniz VISUAL STYLIST Work Phone: [facility] springfieldMffeskjwzf27-31-3011 12:27-0400Body mxelwt298 cm Briana Gordon DO Work Phone: noSaint [facility] University HospitalIcaxgitwzc83-10-9841 12:27-0400Body mass index (BMI) [Ratio]34.72 kg/s5Mfzyzgcwiwv Heidi DO Work Phone: noSaint [facility] University HospitalPjcahfppqw43-15-5202 12:27-0400Body .91 kgChristopher Heidi DO Work Phone: noSaint [facility] University HospitalXarspsvmkz18-15-3631 12:27-0400Diastolic blood wjxhsull31 mm[Hg]Oseier Heidi DO Work Phone: noSaint Louis University HospitalGhldlogchu67-83-3147 12:27-0400Systolic blood eefwudit087 mm[Hg]Christxochitler Heidi DO Work Phone: [facility] springfieldEkvlkmfkba43-02-0346 09:07-0500Body qeocfk373 cm Kika Guaman VISUAL STYLIST Work Phone: [id number] 09:07-0500Body mass index (BMI) [Ratio]35.11 kg/m2Kika Guaman VISUAL STYLIST Work Phone: [id number] 09:07-0500Body temperature 98.1 [degF]Kika Guaman VISUAL STYLIST Work Phone: [facility]fieldSwjtiillgc33-23-2067 09:07-0500Body tbuzyp21.9 kg Kika Deniz VISUAL STYLIST Work Phone: [facility]fieldDfefyersgk57-30-0766 09:07-0500Diastolic blood idqartje60 mm[Hg]Kika Guaman VISUAL STYLIST Work Phone: [facility]fieldHsjizssnbs06-30-0606 09:07-0500Heart rate71 /min Kika Deniz VISUAL STYLIST Work Phone: [facility]fieldSqmmckefmn04-42-2214 09:07-0500Respiratory rate18 /minLisa Deniz VISUAL STYLIST Work Phone: [facility]fieldOkijunijye84-02-2929 09:07-4790GaO4% (BldA) [Mass fraction]97 %Kika Guaman VISUAL STYLIST Work Phone: [facility]Pmvogfxuue13-94-9039 09:07-0500Systolic blood vldxufdw976 mm[Hg]Kika Guaman VISUAL STYLIST Work Phone: [facility]fieldZcdyatfixj42-85-0676 10:10-0500Body cm Kika Elviraz VISUAL STYLIST Work Phone: [facility]fieldQyifmmlnpg56-01-5346 10:10-0500Body mass index (BMI) [Ratio]35.61 kg/m2Sylviasa Landenholz VISUAL STYLIST Work Phone: [facility]fieldQrgtmsfsnt20-63-1706 10:10-0500Body temperature 98.8 [degF]Kika Felixz VISUAL STYLIST Work Phone: [facility]fieldQyznvdvhxm80-35-3829 10:10-0500Body hewxds42.17 kgLisa Landenholz VISUAL STYLIST Work Phone: [facility]fieldAscgiyjlpd61-11-2356 10:10-0500Diastolic blood mm[Hg]Kika Elviraz VISUAL STYLIST Work Phone: [facility]fieldZnejnplopy95-39-7735 10:10-0500Heart rate89 /min Kika Elviraz VISUAL STYLIST Work Phone: [facility]fieldZvcpogyako74-69-6806 10:10-0500Respiratory rate18 /minLisa Felixz VISUAL STYLIST Work Phone: [facility]fieldXmtmnjotbt03-13-6648 10:10-2635RuN7% (BldA) [Mass fraction]97 %Kika Elviraz VISUAL STYLIST Work Phone: [facility]fieldXyzlxeznjx94-28-5173 10:10-0500Systolic blood nrpludgu128 mm[Hg]Kika Elviraz VISUAL STYLIST Work Phone: [facility]fieldMtclxxkjfi55-70-9522 13:49-0400Body delfte296 cm Kika Landenholz VISUAL STYLIST Work Phone: [facility]fieldKxhfalpqzf56-79-7267 13:49-0400Body mass index (BMI) [Ratio]34.76 kg/m2Syvliasa Landenholz VISUAL STYLIST Work Phone: [facility]fieldPdvjtvdkxs36-08-0577 13:49-0400Body temperature 98.49 [degF]Kika Landenholz VISUAL STYLIST Work Phone: [facility]fieldFnnlalraca39-91-2721 13:49-0400Body kg Kika Ladnenholz VISUAL STYLIST Work Phone: [facility]fieldZytnantwep41-56-0233 13:49-0400Diastolic blood xovoxfch04 mm[Hg]Kika Aichholz VISUAL STYLIST Work Phone: [facility]fieldFbxfwdjfqe51-22-8520 13:49-0400Heart rate97 /min Kika Concepciónhholz VISUAL STYLIST Work Phone: [facility]fieldVskzlmeohj95-56-9691 13:49-0400Respiratory rate18 /minLisa Concepciónhholz VISUAL STYLIST Work Phone: [facility]fieldSzutdfmuoy83-66-8157 13:49-8014EzN4% (BldA) [Mass fraction]97 %Kika Landenholz VISUAL STYLIST Work Phone: [facility]fieldVigugvyhet69-71-4709 13:49-0400Systolic blood vaxkzsjn712 mm[Hg]Kika Landenholz VISUAL STYLIST Work Phone: [facility]fieldWllyniwvbn25-90-8262 16:27-0400Body liecjx384.02 cmLisa Aichholz Work Phone: [phone]04-25-2024 16:27-0400 Body mass index (BMI) [Ratio]35 kg/m2Lisa Aichholz Work Phone: [phone] [place], [place] [address]04-25-2024 16:27-0400 Body nfqlueeorxv60.2 [degF]Kika Aichholz Work Phone: [phone]04-25-2024 16:27-0400 Body kihkphnsedl80.7 [degF]Kika Aichholz Work Phone: [phone] [place], [place] 7805904-25-2024 16:27-0400 Body iokwpm23.81 kgLisa Aichholz Work Phone: [facility]04-25-2024 16:27-0400 Diastolic blood ewcnbqoj05 mm[Hg]Kika Guaman Work Phone: [facility]04-25-2024 16:27-0400 Heart daci567 /Marta Schusterholyoni Work Phone: [facility]04-25-2024 16:27-0400 Respiratory rate16 /Marta Schusterholyoni Work Phone: [facility]04-25-2024 16:27-0400 SaO2% (BldA) [Mass fraction]95 %Kika Guaman Work Phone: [facility]04-25-2024 16:27-0400 Systolic blood tzfyezui998 mm[Hg]Kika Guaman Work Phone: [facility]03-14-2024 15:55-0400 Body wufkgi302.02 [facility]03-14-2024 15:55-0400Body mass index (BMI) [Ratio]34.5 kg/e7FeroanykkSt. [facility]'S Hospital03-14-2024 15:55-0400Body nqvjnhhloku73.1 [degF][facility]03-14-2024 15:55-0400Body mozesv49.45 kgSt[facility]03-14-2024 15:55-0400Heart ulir827 /[facility]03-14-2024 15:55-0400Respiratory rate18 /[facility]03-14-2024 15:55-5903SxR8% (BldA) [Mass fraction]98 %[facility] 04-07-2023 16:19-0500Body vhculq767.02 cmSt[facility] 04-07-2023 16:19-0500Body mass index (BMI) [Ratio]34.2 kg/h2LednckuhhSt. Anthony'S Hospital02-15-2024 16:19-0500Body fctcedmrape97 [degF][facility]02-15-2024 16:19-0500Body ytnpie23.54 kgSt[facility]02-15-2024 16:19-0500Diastolic blood mm[Hg][facility]02-15-2024 16:19-0500Heart ntqb176 /[facility]02-15-2024 16:19-0500Respiratory rate18 /[facility]02-15-2024 16:19-2554KiM1% (BldA) [Mass fraction]98 %[facility]02-15-2024 16:19-0500Systolic blood eyjexwsq341 mm[Hg][facility]04-05-2022 16:00-0400Body iedrye786.02 Geraldine Zhu Other [employer] Other 04-05-2022 16:00-0400Body mass index (BMI) [Ratio] 32.59 kg/o9NviieBarbara Zhu Other [employer] Other 04-05-2022 16:00-0400Body ctcmpupiesm24.8 [degF]Barbara Zhu Other [employer] Other 04-05-2022 16:00-0400Body ajrqxt38.46 kgBarbara Zhu Other [employer] Other 04-05-2022 16:00-6845XtP0% (BldA) [Mass fraction]97 % Barbara Zhu Other [employer] Other 10-20-2021 16:15-0400Body qaaoir952.02 Goldie Ho Other [employer] Other 10-20-2021 16:15-0400Body mass index (BMI) [Ratio] 31.88 kg/j8Mpahqoabhishek Ho Other [employer] Other 10-20-2021 16:15-0400Body iobonpqyxkm38.2 [degF]Katiuska Ho Other [employer] Other 10-20-2021 16:15-0400Body jyatgd34.65 kgKatiuska Ho Other [employer] Other 10-20-2021 16:15-0400Respiratory rate18 /minKatiuska Ho Other [employer] Other 10-20-2021 16:15-9473PgX9% (BldA) [Mass fraction]97 % Katiuska Ho Other [employer] Other 11-02-2019 08:46-0400Body Febwfyccayv56.59 [degF] [facility], CP65-90-1360 08:46-0400BP Xyeljkmuo78 mm[Hg] [facility], AJ37-65-0126 08:46-0400BP Jxzyvpua200 mm[Hg] [facility], CL23-30-4955 08:46-0400Pulse (Heart Rate)81 /min [facility], BI59-17-7613 08:46-0400Respiratory Rate20 /min [facility], JQ61-09-0980 02:11-0400Pulse Pbxiiszt60 %[facility], HS33-66-3602 15:35-0400BMI (Body Mass Index)37.91 kg/m2 [facility], SI78-91-3377 15:35-0400Body stiodd67.07 kg [facility], WU34-82-2605 15:35-0419Xlmdqq990 [facility], BQ73-44-5834 00:01-0400Body Pazlxxqcqjs47.9 [degF]Freya Fischer [facility], CK71-15-5740 00:01-0400BP Gflodaxuk06 mm[Hg]Freya [facility], TM48-81-8808 00:01-0400BP Dggegajh983 mm[Hg]Freya [facility], HS77-54-2876 00:01-0400Pulse (Heart Rate)105 /[facility], CQ54-02-1969 00:01-0400Respiratory Rate18 /[facility], PF83-67-1925 23:44-0400BMI (Body Mass Index)37.2 kg/s3[facility]Ch[facility], AL92-16-8279 23:44-0400Body gdzvie53.25 [facility]Ch[facility], [place] 12-05-2018 23:44-8538Xfgvmu158 Counts include 234 beds at the [facility], IH03-56-9137 11:48-0400BP Tjhktxpdi96 mm[Hg][facility], UQ09-49-8369 11:48-0400BP Byzysipm945 mm[Hg][facility], ZP58-12-3643 11:48-0400Pulse (Heart Rate)95 /[facility], GY33-26-4502 11:15-0400Body Jmvwahuamdj09.81 [degF][facility], [place] 12-04-2018 11:15-0400Respiratory Rate18 /[facility] [place] 10-17-2018 16:30-0400Body Ejlnthwgkds27.9 [degF][address], [place] 10-17-2018 16:30-0400BP Euolrqukb06 mm[Hg][address], BT45-69-6491 16:30-0400BP Lbhyaynj197 mm[Hg][address], MZ52-70-7438 16:30-0400 Pulse (Heart Rate)86 /min[address], LW86-39-0875 16:30-0400 Respiratory Rate20 /minMth 01[facility] [place], [place] Encounters Encounter DateEncounter TypeCare ProviderFacilityStart: 11-26-2024 End: 35-07-1444xhkmxggzdqLiih J Aichholz VISUAL STYLIST-C Work Phone: [facility] Work Phone: Start: 11-26-2024 End: 83-11-1904Gibflph encounter procedureSlina Gunderson VAJK-YUI-Q-FPG [facility] [place] Work Phone: Start: 10-08-2024 End: 42-35-4180Nysozn flowsheetKika Guaman VISUAL STYLIST Work Phone: noms CWM FMStart: 10-08-2024 End: 81-33-3591Humevd flowsheetKika Guaman VISUAL STYLIST Work Phone: [facility] CWM FMStart: 10-08-2024 End: 26-57-2587Nulvch outpatient visit 25 minutesLisa Guaman VISUAL STYLIST Work Phone: noms CWM FMComment on above:Moderate anxiety (Primary Dx); Morbid (severe) obesity due to excess calories (CMS-HCC); Major depressive disorder, single episode, moderate (HCC); Chronic pain of left knee; Migraine without aura and without status migrainosus, not intractableStart: 10-08-2024 End: 23-78-4642hxwjtutiexBZDZ AICHHOLZNot AvailableStart: 07-27-2024 End: 71-08-1333Piihwwv encounter procedureLisa Guaman Work Phone: [facility] Work Phone: Start: 07-27-2024 End: 60-15-1324fpisxtvkwdLuby J Aichholz Work Phone: [facility] Work Phone: Start: 07-10-2024 End: 96-93-8130Mgokkxv encounter procedureLisa Guaman Work Phone: [facility] [place] Work Phone: Start: 07-10-2024 End: 66-92-8496qnvezedignDggudwleimz M HeidiFacility:[facility] Hospitaltart: 07-05-2024 End: 02-46-8538Hvupqu flowsheetKika Beebeana laurafelipe VISUAL STYLIST Work Phone: [facility] CWM FMStart: 07-05-2024 End: 94-30-0199Qgsgeq flowsheetKika Beebeana laurafelipe VISUAL STYLIST Work Phone: noms CWM FMStart: 07-05-2024 End: 18-57-0223Yorrta outpatient visit 15 minutesLisa Guaman VISUAL STYLIST Work Phone: noms CWM FMComment on above:Moderate anxiety (Primary Dx); Morbid (severe) obesity due to excess calories (CMS/HCC); Major depressive disorder, single episode, moderate (HCC) (CMS/HCC); Migraine without aura and without status migrainosus, not intractable (CMS/HCC) Start: 07-05-2024 End: 43-71-5388gqlncadbchRUZM PABLOot AvailableStart: 06-21-2024 End: 06-36-9499Rmbfuuvzn Result EncounterChristopher Heidi DO Work Phone: [facility] External Department UnsolicitedStart: 06-21-2024 End: 49-25-4892Dlisnrcvh Result EncounterChristopher Heidi DO Work Phone: [facility] External Department UnsolicitedStart: 06-18-2024 End: 18-89-0472Fsxvql flowsheetChristopher Heidi DO Work Phone: aNA BELLEVUEStart: 06-18-2024 End: 43-07-1004Yylvie flowsheetChristopher Heidi DO Work Phone: aNA BELLEVUEStart: 06-18-2024 End: 83-25-8757Cgkccv outpatient new 45 minutesChristopher Heidi DO Work Phone: ana BELLEVUEComment on above:Idiopathic intracranial hypertension (Primary Dx)Start: 06-18-2024 End: 61-14-8974rjplpekxduRPBLQQWSPLO HASSETTNot AvailableStart: 05-23-2024 End: 11-27-0340VobusmNnow Aichholz VISUAL STYLIST Work Phone: NOUU CWM FMComment on above:Urinary tract infection without hematuria, site unspecified (Primary Dx); Urinary tract infection symptomsStart: 05-10-2024 End: 36-44-1924Tmvmgmjra Result EncounterLisa Aichholz VISUAL STYLIST Work Phone: NOXK External Department UnsolicitedStart: 05-10-2024 End: 49-93-3030Ceosvnrjo Result EncounterLisa Aichholz VISUAL STYLIST Work Phone: NONS External Department UnsolicitedStart: 05-09-2024 End: 82-23-6094pkeqhrlxgwFMRR AICHHOLZNot AvailableStart: 04-16-2024 End: 91-85-7726Fobotzftz Result EncounterLisa Aichholz VISUAL STYLIST Work Phone: noms External Department UnsolicitedStart: 04-16-2024 End: 92-34-7710Kwxawcvre Result EncounterLisa Aichholz VISUAL STYLIST Work Phone: noms External Department UnsolicitedStart: 04-16-2024 End: 29-28-9981Sjtpwe OnlyLisa Aichholz VISUAL STYLIST Work Phone: NOIE CWM FMComment on above:Migraine without aura and without status migrainosus, not intractable (CMS/HCC) (Primary Dx)Start: 04-10-2024 End: 42-67-0107Sqvond flowsheetLisa Aichholz VISUAL STYLIST Work Phone: NOKI CWM FMStart: 04-10-2024 End: 23-20-5824Jcknfu flowsheetLisa Aichholz VISUAL STYLIST Work Phone: NODD CWM FMStart: 04-10-2024 End: 06-24-1247Uqiytn outpatient visit 25 minutesLisa Guaman VISUAL STYLIST Work Phone: noms CWM FMComment on above:Acute non-recurrent maxillary sinusitis (Primary Dx); Morbid (severe) obesity due to excess calories (CMS/HCC); Migraine without aura and without status migrainosus, not intractable (CMS/HCC); BMI 35.0-35.9,adultStart: 04-10-2024 End: 42-02-5626kgsbclypbhZVVF CONCEPCIÓNHHOLZNot AvailableStart: 03-20-2024 End: 10-35-2319Ozxuwfmqb encounterLisa Deniz VISUAL STYLIST Work Phone: noms CWM FMStart: 03-19-2024 End: 46-00-5683EculrlSpyf Deniz VISUAL STYLIST Work Phone: noms CWM FMComment on above:Herpesviral infection, unspecified; DysmenorrheaStart: 2024 End: 11-40-4865Srgvdp flowsheetLisa Aichholz VISUAL STYLIST Work Phone: noms CWM FMStart: 2024 End: 80-12-3974Nhheqt flowsheetLisa Aichholz VISUAL STYLIST Work Phone: noms CWM FMStart: 2024 End: 92-76-3465Ryfril outpatient visit 25 minutesLisa Elviraz VISUAL STYLIST Work Phone: noms CWM FMComment on above:Migraine without aura and without status migrainosus, not intractable (CMS/HCC) (Primary Dx); Major depressive disorder, single episode, moderate (HCC) (CMS/HCC); Morbid (severe) obesity due to excess calories (CMS/HCC); Moderate anxietyStart: 2024 End: 21-94-9813cquvxuirhiUQWT CONCEPCIÓNHHOLZNot AvailableStart: 02-04-2024 End: 53-03-1873Prfburpjb department patient visitLISA Christi GUAMANProMedica Jonesboro HospitalStart: 01-21-2024 End: 28-74-0677StwfqoGghi Aichholyoni VISUAL STYLIST Work Phone: [facility] CWM FMComment on above:Acute cough (Primary Dx) Start: 11-10-2023 End: 82-74-7752TcwghhBpzn Landenfelipe VISUAL STYLIST Work Phone: NOIV CWM FMComment on above:Osteoarthritis of knee, unspecified; Body mass index (BMI) 36.0-36.9, adultStart: 11-09-2023 End: 53-26-6349Lhxjpb flowsheetKika Schusterfelipe VISUAL STYLIST Work Phone: [facility] CWM FMStart: 11-09-2023 End: 51-63-9050Qpdaus Rachael Schusterfelipe VISUAL STYLIST Work Phone: NOHB CWM FMStart: 11-09-2023 End: 48-41-5399NplabyVazk Aichholyoni VISUAL STYLIST Work Phone: NOMK CWM FMComment on above:DysmenorrheaStart: 11-09-2023 End: 62-86-1556eklxnymolxWKBN AICHHOLZNot AvailableStart: 11-09-2023 End: 42-77-3005Xyxfbf outpatient visit 15 Leo Schusterfelipe VISUAL STYLIST Work Phone: NOTI CWM FMComment on above:Moderate anxiety (Primary Dx); Dysmenorrhea; Morbid (severe) obesity due to excess calories (CMS/HCC); Moderate major depression (CMS/HCC)Start: 10-17-2023 End: 96-11-7262Dokjkxixs Result EncounterGeneric External Data ProviderNOMS External Department UnsolicitedStart: 10-17-2023 End: 89-68-4191Opjlmcaxq Result EncounterGeneric External Data ProviderNOMS External Department UnsolicitedStart: 07-05-2023 End: 93-85-6573Eodywqjkg Result EncounterGeneric External Data ProviderNOMS External Department UnsolicitedStart: 07-05-2023 End: 00-27-9711Vbjscchos Result EncounterGeneric External Data ProviderNOMS External Department UnsolicitedStart: 06-23-2023 End: 55-45-9808Efwmwjqjv Result EncounterLisa Aichholz VISUAL STYLIST Work Phone: noms External Department UnsolicitedStart: 06-23-2023 End: 32-16-1957Sowvuwpcy Result EncounterLisa Aichholz VISUAL STYLIST Work Phone: noms External Department UnsolicitedStart: 06-16-2023 End: 95-91-0598sbrmyqateoXqke J Aichholz Work Phone: [facility] Work Phone: Start: 06-16-2023 End: 82-35-3604Dmdtenp encounter procedureLisa Aichholz Work Phone: [facility] Work Phone: Start: 05-05-2023 End: 09-78-3063ietdhjcrzlZgoomsxnnWilson Memorial Hospital Work Phone: Start: 05-05-2023 End: 54-30-6784Tsyarkz encounter procedureAd[facility]health [facility] Work Phone: Start: 04-13-2023 End: 02-97-7527Yslfofqjo Result EncounterLisa Aichholz VISUAL STYLIST Work Phone: noms External Department UnsolicitedStart: 04-13-2023 End: 09-20-4177Xgbkhzcbh Result EncounterLisa Aichholz VISUAL STYLIST Work Phone: noms External Department UnsolicitedStart: 04-07-2023 End: 34-25-5267nbprnxobxaLppvvdddySelect [facility] Work Phone: Start: 04-07-2023 End: 00-32-9705Amzudtp encounter procedureAd[facility]health [facility] Work Phone: Start: 38-97-4956Nuexhubvd Result EncounterLisa Deniz VISUAL STYLIST Work Phone: noms External Department UnsolicitedStart: 03-23-2023 Clinisync Result EncounterLisa Landenholz VISUAL STYLIST Work Phone: noms External Department UnsolicitedStart: 03-23-2023 Patient encounter procedureLisa Elviraz VISUAL STYLIST Work Phone: noms HealthcareStart: 06-01-2022 End: 97-87-4097vxopwixzegDCP KIKA AICHHOLZFacility:K3Ublwk: 04-04-2022 End: 64-39-9069rwyrrxnyqgJUO KIKA AICHHOLZFacility:T7Zbjpu: 12-22-2021 End: 59-07-0423rxdvmtwwryNYK KIKA AICHHOLZFacility:K5Abmkh: 10-09-2021 End: 10-65-5760zazdiahdlaENF KIKA AICHHOLZFacility:X2Zrruh: 10-08-2021 End: 63-23-1863khjoaiyjcmBSK KIKA AICHHOLZFacility:O4Bpzyh: 09-28-2021 End: 62-73-5834zgzgesnmodRQS KIKA AICHHOLZFacility:Q9Igesy: 09-16-2021 End: 33-28-5978cfphgrbyruIMV KIKA AICHHOLZFacility:J6Cftoa: 05-26-2021 End: 48-46-5156wqygvpzwgrBdvhf Keller Other [employer] Other Start: 39-76-4578Xztalk outpatient visit 25 minutes Barbara [facility] ClydeStart: 01-14-2021 End: 10-58-4403xpkdrtzqiwGisiru Dymond Other [employer] Other Start: 80-27-7692Ssngms outpatient visit 5 minutes Katiuska HoFPMarc Urgent Care ClydeStart: 11-80-1016Xwifvd outpatient visit 15 minutesPamela DymondFPG Urgent Care ClydeStart: 01-02-2020 End: 18-87-2172Eyzpjxl [facility] Start: 01-02-2020 End: 51-57-9508Xcpmbuoqhd hospital visit by Ada Beebecrichton rehabilitation centerzMTHZ LaboratoryComment on above:Amenorrhea; Positive urine test; Encounter for supervision of other normal in first trimesterStart: 10-11-2019 End: 04-62-4379Zajtiaz [facility]Mer[facility] Start: 10-11-2019 End: 16-32-5553Fiyuupufog hospital visit by Ada Beebecrichton rehabilitation centerzMTHZ LaboratoryComment on above:Screen for STD (sexually transmitted disease); Encounter for well woman exam with routine gynecological examStart: 02-06-2019 End: 22-37-5187Ghnixzz encounter [facility] Start: 02-06-2019 End: 99-45-1325Snvqmqcric hospital visit by Ada Guaman Work Phone: mthz LaboratoryComment on above:Irregular menses; Possible , not yet confirmedStart: 01-08-2019 End: 15-21-9487Wkbkxjn encounter [facility] Start: 01-08-2019 End: 24-38-9133Xxoxbywmxq hospital visit by Moana laura [facility]varado [facility] RoomTNHZ LaboratoryComment on above:Gestational diabetes mellitus (GDM), postpartumStart: 12-21-2018 End: 24-38-3063Lkzycluowf and management of inpatientAmaya Chi Karan Work Phone: mthz Labor and DeliveryStart: 12-13-2018 End: 89-54-7050Fkqqsbfhis hospital visit by Ada Beebecrichton rehabilitation centerzMTHZ LaboratoryComment on above:35 weeks gestation of pregnancyStart: 12-05-2018 End: 78-38-5830Kuafunggma hospital visit by Javy Fischer Work Phone: mthz Labor and DeliveryStart: 12-04-2018 End: 43-12-3645Qtshecfhfh hospital visit by Juan R Russo Work Phone: mthz Labor and DeliveryStart: 10-25-2018 End: 55-52-4653Ynefvgvuyg [facility] Diabetic EducationComment on above:ArrivedStart: 10-17-2018 End: 61-28-4782Iaqqixhrgq hospital [facility]Moh[facility] Op Treatment Rm 01MTHZ [facility] ([facility])Start: 10-16-2018 End: 67-50-2351Xuzmopapls hospital visit by physicianIR[facility] LaboratoryComment on above:27 weeks gestation of ; Rh negative state in antepartum period, third trimesterRhD negativeWayne Hospital [facility]- [place], [place] Procedures DateProcedureProcedure DetailPerforming ClinicianStart: 97-02-5056Mogu stain microscopyLisa Guaman Work Phone: Start: 21-55-8653Xypzul puncture using fluoroscopic guidanceKika Guaman Work Phone: Start: 30-44-9639PQE venographyLisa Guaman Work Phone: Start: 87-55-3583BERAYO PROTHROMBIN TIME INR W/O COUM Briana Gordon DO Work Phone: Start: 65-65-3577ZQC CBC WITH AUTO DIFFLisa Deniz VISUAL STYLIST Work Phone: Start: 90-02-4522EM HEAD/BRAIN WO CONLisa Deniz VISUAL STYLIST Work Phone: Start: 08-77-4399DY ANKLE LT WO CONGeneric External Data ProviderStart: 50-68-0441DR ANKLE LT MIN 3VGeneric External Data Provider Start: 66-67-3290WE ANKLE LT MIN 3VLisa Deniz VISUAL STYLIST Work Phone: Start: 87-33-5121Nleppchzjb examination knee 3 views Kika Guaman VISUAL STYLIST Work Phone: Start: 40-54-4789B-ray of left ankleLisa Deniz Work Phone: Start: 04-20-2023 End: 04-20-2023H/O: surgeryStatus post bilateral salpingectomyKika Beebebandar VISUAL STYLIST Work Phone: Start: 76-83-5236OY TOMOSYNTHESIS DIAGNOSTIC BILaj Schusterfelipe VISUAL STYLIST Work Phone: Start: 03-91-5502Lb breast uni real time with image limitedSylvia Deniz VISUAL STYLIST Work Phone: Start: 88-40-0469GBZ COVID/FLU/RSVStart: 04-07-2023 Quick Strep (POC)Start: 07-75-8315SQU,APTIMA HPV,AGE GDLNKika Concepciónana laurafelipe VISUAL STYLIST Work Phone: Start: 33-44-3965Swaibqmacug observation [Identifier] in Cervix by Cyto stainKika Guaman VISUAL STYLIST Work Phone: Start: 40-55-7758Qxxuqnxux panelKATHLEEN POOLStart: 16-79-0757IWXLTBDL TYPE AND SCREENKATHLEEN POOLStart: 28-01-3767Oikfsdzm hiv-1&hiv-2 single resultKATHLEEN POOLStart: 01-02-2020C.TRACHOMATIS N.GONORRHOEAE DNA, URINEKATHLEEN POOLStart: 12-50-1253Qaklvoa bacterial quanttative colony count urineKATHLEEN POOLStart: 53-88-4647Wtpc screen, qualitate/multiKATHLEEN POOLStart: 47-26-8862Uouqhuuakv glycosylated n0eZPVHNXHD POOLStart: 21-83-6379Nnxlkkvyw c antibodyKATHLEEN POOLStart: 06-21-6571Qittgcnx screenLisa DenizStart: 50-57-6324Kpckd typing serologic aboKathleen E Pool Work Phone: Start: 07-75-0335Wgllvlnrg panelKathleen E Pool Work Phone: Start: 43-48-6243Qufyyvwv hiv-1&hiv-2 single result Amaya E Pool Work Phone: Start: 31-59-1323Kghb screen, qualitate/multiKathleen E Pool Work Phone: Start: 29-03-1482Fecszuwmb c antibodyKathleen E Pool Work Phone: Start: 84-54-8268Ujjr ia chlamydia trachomatisKATHLEEN POOLStart: 94-41-1132Paxskm pap by maicol hawthorne md supvKATHLEEN POOLStart: 02-06-2019 Gonadotropin chorionic quantitativeKATHLEEN POOLStart: 32-31-6505Ldxckxmulvqs chorionic quantitativeKathleen E Pool PHOTOGRAPH PRINTER - CNM Work Phone: Start: 61-22-6640Matuwdk quantitative blood xcpt reagent stripKATHLEEN POOLStart: 01-25-3106Sttpots tolerance test gtt 3 specimensKATHLEEN POOLStart: 80-78-7263LAHMYTE, WHOLE BLOODKathleen E Pool Work Phone: Start: 60-21-1466Mwwctwq tolerance test gtt 3 specimensKathleen E Pool Work Phone: Start: 58-93-8643JCMFLBO, WHOLE BLOODKathleen E Pool Work Phone: Start: 17-52-4127Jrvba of blood/uric acidKathleen E Pool Work Phone: Start: 85-73-5048Ftogf count complete auto&auto difrntl wbcKathleen E Pool Work Phone: Start: 16-30-4890Virwuirggwztt metabolic panelKathleen E Pool Work Phone: Start: 96-63-0665Xcpcvgzwem activityKathleen E Pool Work Phone: Start: 72-00-6721Smejgps dehydrogenase ldhKathleen E Pool Work Phone: Start: 41-10-7035Ybhearwhkui timeKathleen E Pool Work Phone: Start: 29-89-8374Hyhtcljdxggblr time partial plasma/whole bloodKathleen E Pool Work Phone: Start: 92-83-1182Cmlz screen class list aKathleen E Pool Work Phone: Start: 45-86-7710Tshsa nonstress testSusan Lulu Fischer Work Phone: Start: 46-95-3649Rbmum of blood/uric acidKathleen E Pool Work Phone: Start: 73-74-5513Vpmou count complete auto&auto difrntl wbcKathleen E Pool Work Phone: Start: 68-93-2314Pbhdumtnewxyz metabolic panelKathleen E Pool Work Phone: Start: 51-07-9868Bwgeauthus activityKathleen E Pool Work Phone: Start: 88-13-3838HGTLDNNZ PLATELET FRACTIONKathleen E Pool Work Phone: Start: 20-53-5224Oudjytw dehydrogenase ldhKathleen E Pool Work Phone: Start: 57-42-4665Ifamkcnrfiw timeKathleen E Pool Work Phone: Start: 50-04-1957Rixogesjoufdjt time partial plasma/whole bloodKathleen E Pool Work Phone: Start: 85-42-0031Cnaamln total xcpt refractometry urineKathleen E Pool Work Phone: Start: 98-11-7384Pmwcyyxtqv microscopic onlyKathleen E Pool Work Phone: Start: 00-49-2316Oscxj dip stick/tablet rgnt auto w/o microscopyKathleen E Pool Work Phone: Start: 38-76-5585Einqn nonstress testKathleen E Pool Work Phone: Start: 92-48-8848Vxopk count hemoglobinKathleen E Pool Work Phone: Start: 22-46-9285Ddtmm typing serologic rh (d)Amaya E Pool Work Phone: Start: 86-49-0797Zfmjmdi tolerance test gtt 3 specimensKathleen E Pool Work Phone: Plan of Treatment DateCare ActivityDetailAuthorStart: 77-21-5858OPbY/Tdap/Td vaccine (3 - Td) DTaP/Tdap/Td vaccine (3 - Td)[facility]: 23-29-5337JNbC/Tdap/Td vaccine (9 - Td)DTaP/Tdap/Td vaccine (9 - Td)[facility]: 82-97-9962Ohhtkqdcw for malignant neoplasm of cervixNOGA HealthcareSelma: 81-59-2204MLvQ/Tdap/Td vaccine (2 - Td)DTaP/Tdap/Td vaccine (2 - Td)[facility]: 02-23-0703Lkktdqnjn for malignant neoplasm of cervix Cervical cancer screenMemorial Health System: 10-08-2024 End: 80-70-7347Tcbgxxp encounter procedureNOMS CWM FMComment on above:Morbid (severe) obesity due to excess calories ([facility]) (Primary Dx); Moderate anxiety; Major depressive disorder, single episode, moderate (HCC)Start: 08-13-2024 End: 56-00-8104Phlcrtz encounter smbfkokws53/23/2025 10:45 AM EDT Office Visit RISSA FAVIOLA [address] [place] [phone] Briana Gordon DO [address] [place] [address] RISSA LANNYtart: 57-22-5514Kymzgfc CultureAerobic Culture [facility]: 14-34-9004Fptlacjey CultureAnaerobic CultureWhite Hospitaltart: 31-88-4833TVL (PCR)CSF (PCR) [facility]: 52-58-3334Culcnukvtyl observation [Identifier] in Unspecified specimen by Gram stainWhite Hospitaltart: 63-13-4967AzqjzeypgWhite Hospitaltart: 07-27-2024 Cerebrospinal fluid cultureWhite Hospitaltart: 07-27-2024 [facility]: 07-05-2024 End: 02-83-6055Ijxoyjp encounter procedureNOMS [facility] FMComment on above:Morbid (severe) obesity due to excess calories (CMS/HCC) (Primary Dx); Major depressive disorder, single episode, moderate (HCC) (CMS/HCC); Migraine without aura and without status migrainosus, not intractable (CMS/HCC); Moderate anxietyStart: 06-18-2024 End: 19-02-9666ZUV Head vessels WO contrastMR venous head wo IV contrast Imaging Routine Idiopathic intracranial hypertension Expected: 06/18/2024, Expires: 06/18/2025NOGA HealthcareComment on above:Expected: 06/18/2024, Expires: 06/18/2025Start: 06-18-2024 End: 98-21-9896Fqrqekevxqk time (PT) in Blood by Coagulation assayProtime-INR Lab Routine Idiopathic intracranial hypertension Expected: 06/18/2024 (Approximate), Expires: 06/18/2025[facility] Work Phone: comment on above:Expected: 06/18/2024 (Approximate), Expires: 06/18/2025Start: 06-18-2024 End: 38-84-3405Mvzbkmk encounter procedureANA BELLEVUEComment on above:Migraine without aura and without status migrainosus, not intractable (CMS/HCC)Start: 05-09-2024 End: 20-16-5140Ytlodeg encounter ucfpniwch44/19/2025 9:40 AM EDT Office Visit [facility] [address] [place] [address] Kika Guaman NP [address] [place] [address] [facility] DAY FMStart: 04-10-2024 End: 17-49-4557XK Brain WO contrastMR brain wo contrast Imaging Routine Migraine without aura and without status migrainosus, not intractable (CMS/HCC) Expected: 04/10/2024 (Approximate), Expires: 04/10/2025[facility] Work Phone: Comment on above:Expected: 04/10/2024 (Approximate), Expires: 04/10/2025Start: 04-10-2024 End: 83-89-2553Tlrvcfp encounter gboixardu12/18/2025 9:00 AM EST Office Visit [facility] FM [address] [place] [address] Kika Guaman, VISUAL STYLIST [address] [place] [address] NOM[facility] CW FMStart: 2024 End: 19-65-1967Lzgyhmm encounter mdwuxnusj12/09/2025 9:40 AM EST Office Visit [facility] CW FM [address] [place] [address] Kika Guaman, VISUAL STYLIST [address] [place] [address] Major depressive disorder, single episode, moderate (HCC) (CMS/HCC) (Primary Dx); Morbid (severe) obesity due to excess calories (CMS/HCC) [facility] FMComment on above:Major depressive disorder, single episode, moderate (HCC) (CMS/HCC) (Primary Dx); Morbid (severe) obesity due to excess calories (CMS/HCC)Start: 02-06-2024 End: 34-95-3873Zcgaexg encounter snuelablr98/16/2024 9:20 AM EST Office Visit [facility] CW FM [address] [place] [address] Kika Guaman, VISUAL STYLIST [address] [place] [address] NOMS CW FMStart: 01-06-3592Tnhczugiq vaccinationInfluenza Vaccine (#1)NOMS HealthcareComment on above:Postponed from 10/22/2022 (Patient Refused)Start: 04-20-2023 End: 58-11-0028Jvtqpsv encounter prqyoomgw35/28/2024 8:40 AM EST Office Visit [facility] FM [address] [place] [address] Kika Guaman, FELICIA [address] [place] [address] N[facility] CWM FMStart: 28-99-5653Irwnnjgx cancer screenCervical cancer screenMercy Health St. Charles Hospitalart: 72-74-9104Qgwmeqpws for malignant neoplasm of cervixNOMS HealthcareStart: 10-16-2020 End: 94-39-5167Ibhlaq Visit10/16/2020 Office Visit Obstetrics and Gynecology Amaya Russo APRN - PATRICK [address] [place] [address] [phone] [facility] OBST[facility]ICS & GYNECOLOGYStart: 01-21-2020 End: 01-21-4959Nbxcxgg Atkkhdpj39/30/2020 Routine Obstetrics and Gynecology Amaya Russo APRN - PATR[place] [address] [place] [address] [phone] [facility] OBSTET[facility]ICS & GYNECOLOGYStart: 01-16-2020 End: 63-84-6828Eaquepzde Heydxgyoe70/25/2020 Ancillary Procedure Obstetrics and GynecologyELYRI[facility] OBSTET[facility]ICS & GYNECOLOGYStart: 12-22-2019 Creatinine measurementCreatinine [facility]: 12-22-2019 Creatinine monitoringCreatinine [facility] NEStart: 12-22-2019 Potassium monitoringPotassium monitoringMercy Health St. Charles Hospitalart: 12-05-2019 Creatinine monitoringCreatinine [facility]: 12-05-2019 Potassium monitoringPotassium [facility]art: 10-23-2019 Influenza vaccinationFlu vaccine (#1)[facility]: 02-26-2019 Influenza vaccinationFlu vaccine (#1)[place]: Postponed from 10/22/2018 (Not Indicated)Start: 02-08-2019 End: 89-00-2814mffygzcqur80/19/2019 Visit Obstetrics and Gynecology Amaya Russo PHOTOGRAPH PRINTER - CNM [address] [address] [phone] [facility] OB/GYNStart: 02-05-2019 End: 92-50-9514Kizqgkirqe Visit02/05/2019 Visit Obstetrics and Gynecology Amaya Russo PHOTOGRAPH PRINTER - CN [address] [place] [address] [phone] [facility] OB/GYNStart: 01-25-2019 Varicella Vaccine (1 of 2 - 2-dose childhood series)Varicella Vaccine (1 of 2 - 2-dose childhood series)[facility] HospitalLucien on above:Postponed from 1988 (Not Indicated)Start: 01-04-2019 End: 77-12-7931Hbcaqukroy Visit01/04/2019 Visit Obstetrics and Gynecology AlbertvilleAmaya APRN - CN [address] [place] [address] [phone] [facility] OB/GYNStart: 12-25-2018 Influenza vaccinationFlu vaccine (#1)[facility] HospitalLucien on above: Postponed from 10/22/2018 (Not Indicated)Start: 90-43-7309Tqiyhcxcc Vaccine (1 of 2 - 13+ 2-dose series)Varicella Vaccine (1 of 2 - 13+ 2-dose series)[facility] HospitalLucien on above:Postponed from 2000 (Not Indicated)Start: 12-21-2018 End: 41-69-5103Zryygoj Xagdhthq62/31/2019 Routine Obstetrics and Gynecology Amaya Russo PHOTOGRAPH PRINTER - CNM [address] [place] [address] [phone] [facility] OB/GYNStart: 12-14-2018 End: 30-40-6660Xyzjqdf Gznxwotn63/24/2019 Routine Obstetrics and Gynecology Amaya Russo PHOTOGRAPH PRINTER - CNM [address] [place] [address] [phone] [facility] OB/GYNStart: 11-06-2018 End: 40-35-3839Ckyejrb Wgorpzsx97/16/2019 Routine Obstetrics and Gynecology KaranAmaya LOUIE - [facility] [address] [place] [address] [phone] [facility] OB/GYNStart: 10-22-2018 Influenza vaccinationFlu vaccine (#1)[facility]: 2000 Varicella Vaccine (1 of 2 - 13+ 2-dose series)Varicella Vaccine (1 of 2 - 13+ 2- dose series)[facility]: 39-61-4251Jrokuwoad vaccine (1 of 2 - 2- dose childhood series)Varicella vaccine (1 of 2 - 2-dose childhood series)[facility] Work Phone: bacteria identified in Unspecified specimen by Aerobe cultureSt. Anthony'S HospitalBacteria identified in Unspecified specimen by Anaerobe cultureSt. Anthony'S Hospital End: 10-11-2019C.trachomatis N.gonorrhoeae DNA, Thin PrepC.trachomatis N.gonorrhoeae DNA, Thin Prep Microbiology Routine Screen for STD (sexually transmitted disease) 1 Occurrences starting 10/11/2019 until 10/11/2019[place], [place]:1 Occurrences starting 10/11/2019 until 10/11/2019C.trachomatis N.gonorrhoeae DNA, Thin PrepC.trachomatis N.gonorrhoeae DNA, Thin Prep Microbiology Routine Screen for STD (sexually transmitted disease) 10/11/2019 12:16 PM [place] End: 01-02-2020C.trachomatis N.gonorrhoeae DNA, UrineC.trachomatis N.gonorrhoeae DNA, Urine Microbiology Routine Amenorrhea Positive urine test Encounter for supervision of other normal in first trimester 1 Occurrences starting 01/02/2020 until 01/02/2020[place], [place]:1 Occurrences starting 01/02/2020 until 01/02/2020C.trachomatis N.gonorrhoeae DNA, UrineC.trachomatis N.gonorrhoeae DNA, Urine Microbiology Routine Amenorrhea Positive urine test Encounter for supervision of other normal in first trimester 01/02/2020 4:57 PM [facility] HospitalANDREWSCell count, cerebrospinal fluidSt. Anthony'S Hospital End: 94-77-8602Fibcqcn, UrineCulture, Urine Microbiology Routine Amenorrhea Positive urine test Encounter for supervision of other normal in first trimester 1 Occurrences starting 01/02/2020 until 01/02/2020 [facility] HospitalLucien on above:1 Occurrences starting 01/02/2020 until 01/02/2020Culture, UrineCulture, Urine Microbiology Routine Amenorrhea Positive urine test Encounter for supervision of other normal in first trimester 01/02/2020 4:57 PM MAYTEAkron Children's HospitalANDREWS End: 13-23-5773Vjdmmsqwohjne procedure, preparation of smear, genital sourcePAP SMEAR Lab Routine Encounter for well woman exam with routine gynecological exam 1 Occurrences starting 10/11/2019 until 10/11/2019[facility] HospitalLucien on above:1 Occurrences starting 10/11/2019 until 10/11/2019Fetal nonstress test nonstress test OB Routine Daily until discontinued starting 12/06/2018, 1 [facility]Way[facility] MOON WearablesRESEARCH BELTON HOSPITALLucien on above:Daily until discontinued starting 12/06/2018, 1 completed End: 49-01-2334Shvne nonstress testFetal nonstress test OB Routine One Time for 1 Occurrences starting 12/04/2018 until 12/04/2018[facility] HospitalLucien on above:One Time for 1 Occurrences starting 12/04/2018 until 12/04/2018 End: 99-18-3805OjL3w (Bld) [Mass fraction]Hemoglobin A1C Lab Routine Amenorrhea Positive urine test Encounter for supervision of other normal in first trimester 1 Occurrences starting 01/02/2020 until 01/02/2020 [facility] HospitalLucien on above:1 Occurrences starting 01/02/2020 until 01/02/2020HbA1c (Bld) [Mass fraction]Hemoglobin A1C Lab Routine Amenorrhea Positive urine test Encounter for supervision of other normal in first trimester 01/02/2020 4:57 PM Protestant HospitalInView TechnologyRESEARCH BELTON HOSPITALANDREWS Meningitis+Encephalitis pathogens DNA and RNA panel - Cerebral spinal fluid by GERALDINE with non-probe detectionSt. Anthony'S HospitalNonrebreather mask oxygenNonrebreather mask oxygen Respiratory Care Routine As directed - RT (PRN) until discontinued starting 12/05/2018[place], [place]Comment [place]:As directed - RT (PRN) until discontinued starting 12/05/2018Patient Education [facility] Lumbar Puncture Discharge [facility] Work Phone: End: 34-08-6840OERO GlucosePOCT Glucose Point of Care Testing Routine One Time for 1 Occurrences starting 12/22/2018 until 12/22/2018[place] Comment on above:One Time for 1 Occurrences starting 12/22/2018 until 12/22/2018 RHOGAM ANTEPARTUMRHUNIVERSITY [facility] ANTEPARTUM Blood Bank Routine 27 weeks gestation of Rh negative state in antepartum period, third trimester 10/16/2018 7:08 PM [place], [place] POSTPARTUMRHUNIVERSITY OF [facility] Blood Bank [employer] Label Print 12/22/2018 2:55 PM [place] End: 47-58-5733Cskom B Screen, Vaginal / RectalStrep B Screen, Vaginal / Rectal Microbiology Routine 35 weeks gestation of 1 Occurrencesstarting 12/13/2018 until 12/13/2018[facility] NEComment on above:1 Occurrences starting 12/13/2018 until 12/13/2018Strep B Screen, Vaginal / RectalStrep B Screen, Vaginal / Rectal Microbiology Routine 35 weeks gestation of 12/13/2018 4:12 PM [place] End: 62-27-3570YPOKQN Point of Care Testing Routine One Time for 1 Occurrences starting 12/05/2018 until 12/05/2018[facility] NEComment on above:One Time for 1 Occurrences starting 12/05/2018 until 12/05/2018XR Ankle - left GE 3 [facility] Immunizations Immunization DateImmunizationNotesCare WuwcaqxrYunphjtc19-61-8179cmhjrfe toxoid, reduced diphtheria toxoid, and acellular pertussis vaccine, adsorbedKatOhioHealth, RJ03-89-9127ncouifblgr, tetanus toxoids and acellular pertussis vaccine, unspecified formulationGlen Cove Hospital, [place] 50-81-0757lfytyvi toxoid, reduced diphtheria toxoid, and acellular pertussis vaccine, [facility], CZ42-65-3431WLC(D) immune globulin [facility], PS30-96-5713zuhgrzi toxoid, reduced diphtheria toxoid, and acellular pertussis vaccine, adsorbedLisa Aichholz VISUAL STYLIST Work Phone: [facility]fieldOhdfshgvrd48-34-3650ewwljsr toxoid, adsorbedLisa Aichholz VISUAL STYLIST Work Phone: [facility]fieldUitgvujzlu91-44-4247kxtarsw, mumps and rubella virus vaccineLisa Aichholz VISUAL STYLIST Work Phone: [facility] springfieldXgafussvve43-30-5927lxkvtzlgmu, tetanus toxoids and acellular pertussis vaccine, unspecified formulationLisa Aichholz VISUAL STYLIST Work Phone: [facility] springfieldVokfcoxlne53-08-0297jqgeutnscp vaccine, unspecified formulationLisa Aichholz VISUAL STYLIST Work Phone: [facility] springfieldYrhqbeibfg00-57-9996ymfojqcieh, tetanus toxoids and acellular pertussis vaccine, unspecified formulationLisa Aichholz VISUAL STYLIST Work Phone: [facility] springfieldPywoqlaxgk24-68-1497bgjdmjesdqb influenzae type b vaccine, conjugate unspecified formulationLisa Aichholz VISUAL STYLIST Work Phone: [facility] springfieldDpurjxbpak50-47-2862zbwthhf, mumps and rubella virus vaccineLisa Aichholz VISUAL STYLIST Work Phone: [facility]fieldUbjlslbtiv96-58-3402uxmaxntdow, tetanus toxoids and pertussis vaccineLisa Aichholz VISUAL STYLIST Work Phone: [facility] springfieldTuzcepuxwu00-35-1002uuxftokux poliovirus vaccine, live, oralLisa Aichholz VISUAL STYLIST Work Phone: [facility] springfieldLhvxxohjrt96-22-2536awxtbnpwrs, tetanus toxoids and acellular pertussis vaccine, unspecified formulationLisa Aichholz VISUAL STYLIST Work Phone: [facility] springfieldNsmcuxifxw86-35-3642bgbokwetib vaccine, unspecified formulationLisa Aichholz VISUAL STYLIST Work Phone: noSaint Louis University HospitalNlutscyobv30-04-9544nsquaaxcap, tetanus toxoids and acellular pertussis vaccine, unspecified formulationLisa Aichholz VISUAL STYLIST Work Phone: WRSaint Louis University HospitalOzibhtsrgn78-03-4121izyamonemm vaccine, unspecified formulationLisa Aichholz VISUAL STYLIST Work Phone: PYSaint Louis University HospitalGcstokqcqv30-96-4306rkpawzwlce, tetanus toxoids and acellular pertussis vaccine, unspecified formulationLisa Aichholz VISUAL STYLIST Work Phone: OSSaint Louis University HospitalVlzoavfypn83-71-0155izrqqrbdwv vaccine, unspecified formulationLisa Aichholz VISUAL STYLIST Work Phone: [facility] Payers DatePayer CategoryPayerPolicy [id number] Health InsuranceUNITED HEALTHCARE [id number] Health [id number]'s [id number] Care HMO (unspecified) [id number] 2017MedicaidBUC[place]EBU[place] [employer] MEDICAID [place] [id number] 2017-Present [address] [place] [id number] [facility] xxxxxxxxxxxx 2015-Present [phone] [facility] [address] [place], [place] [address]ndigcyxnuiep [id number] 2.16.840.1.259677.3.57[id number] 2.16.840.1.841575.3.579.2.19[id number] 2.16.840.1.823486.3.579.2.77178-90-3173Ojgtyvm15407812 2..840.1.224333.3.579.2.[id number] 2.16.840.1.117483.3.579.2.03434-77-5003Lcttndg0833587 2.16.840.1.523866.3.579.2.53999-57-2396Scktiuh1145305 2.16.840.1.542264.3.579.2.16253-44-0303Ccvrslk3503373 2.16.840.1.779745.3.579.2.40946-61-0511Ksriaph5340412 2.16.840.1.926759.3.579.2.13598-56-0812Ajueozr0697483 2.16.840.1.912088.3.579.2.92451-58-7510Qazllzb6017767 2.16.840.1.699771.3.579.2.18382-77-7689Zivetbn8183646 2.16.840.1.299936.3.579.[id number] 2.16.840.1.271671.3.579.2.442307-13-3182Cgqzbhb13177156 2.16.840.1.034061.3.579.2.269761-60-9408Lpeeyvt3960835 2.16.840.1.373896.3.579.2.428474-26-4705Bxifpwp2984721 2.16.840.1.783243.3.579.2.306398-57-8202Okzcesu3065818 2.16.840.1.267086.3.579.2.393044-53-1228Takoyxz5660286 2..840.1.171537.3.579.2.640387-36-0124Xzoisjr3479708 2..840.1.956886.3.579.2.429444-76-4520Bcymtff7815866 2.16.840.1.171332.3.579.2.293705-60-4316Xubcslo Health [id number] 2.840.1.795028.63614188-56-2041Qklmhyu863330735242 1..840.287811.1.13.239.2.7.3.302329.780Ouptcdw87152942 2.840.1.023[id number] 2.840.1.553966.3.579.2.531 Social History DateTypeDetailFacilityStart: 08-28-2018 End: 90-43-5255Cocdxmi smoking status NHISNever smokerTIMPANOGOS REGIONAL HOSPITAL HealthcareStart: 08-28-2018 End: 17-79-3502Juberzh intakeNot CurrentlyTIMPANOGOS REGIONAL HOSPITAL HealthcareStart: 03-28-2014 Alcohol CommentrarelOlympia, KYStart: 88-04-7948AdyzuxioMyybu Health- [place], [place]Start: 80-54-2458Ter Assigned At [facility]ly [facility] CenterNot on joseAkron Children's HospitalANDREWS Start: 10-11-2019 End: 18-21-9263Ecdmsfo use and exposureNever usedAkron Children's Hospital, ANDREWSStart: 01-04-2019 End: 63-99-0291Ebrbzdu intakeEx-drinker (finding)[facility] HospitalANDREWSExposure to SARS-CoV-2 (event)Not sureAkron Children's Hospital, KYStart: 03-23-2023 End: 07-23-9100Yfpmpox intakeLifetime non-drinker (finding)[facility] HealthcareStart: 02-22-2023 End: 40-82-9816Zizgvjk of Social functionNOMS HealthcareWithin the last year, have you been afraid of your partner or ex-partner?NoNOMS HealthcareStart: 20-44-9607Txv often do you attend meetings of the [...] the mortgage or rent on time?YesNOMS HealthcareStart: 85-51-2873Kbf Assigned At [facility] HospitalHow often do you have 6 or more drinks on 1 occasion?NeverNOMS HealthcareHow hard is it for you to pay for the very basics like food, housing, medical care, and heatingSomewhat hard [facility] HealthcareDo you feel stress - tense, restless, nervous, or anxious, or unable to sleep at night because yourmind is troubled all the time - these days [OSQ]Rather muchNOGA Healthcare(I/We) worried whether (my/our) food would run out before (I/we) got money to buy more.Sometimes trueMercy hospital springfieldStart: 05-43-6219KbvBcqvnx (finding)[facility] Medical Equipment Procedure CodeEquipment CodeEquipment Original TextEquipment IdentifierDatesPt to test four times daily fastin, 2 hr [id number]: 10-18-2018 End: 12-23-20181 each by Other route 4 times daily One glucometer, test strips, lancets - per insurance [id number]: 10-18-2018 End: 08-32-3794lod to test BLOOD SUGAR FOUR TIMES [id number]: 10-23-2018 End: 12-23-2018 Functional Status FrqhLlcxcpgkmdCuaawiYiequlpz96-96-8529Dwfef score [AUDIT-C]1 2024 9:32 AM EST Mychart, GenericMercy hospital springfieldPbifgvhzek71-04-2875Hnm often do you have a drink containing alcohol?Monthly or less 2024 9:32 AM EST Mychart, Generic Monthly or lessNOSaint Louis University HospitalMkqbuaivcw01-85-6738Uik many standard drinks containing alcohol do you have on a typical day?1 or 2 2024 9:32 AM EST Mychart, Generic 1 or 2NColumbia Regional HospitalWkmisafzyr20-63-0347Jlh often do you have 6 or more drinks on 1 occasion?Never 2024 9:32 AM EST Mychart, Generic NeverMercy hospital springfield 37-68-7375Pdqdbyg Health Questionnaire 2 item (PHQ-2) [Reported][facility] 41-84-5992Hxm difficult have these problems made it for you to do your work, take care of things at home, or get along with other people?Not difficult at all 06/23/2023 10:19 AM Ramonita Oquendo MA Not difficult at allMercy hospital springfield Clinical Notes 12-10-2020 to 10-08-2024 Note Date & RfihGgakZeybkhgx31-02-8294 History of Present illness Narrative* Kika Guaman [...] catches from time to time. Bought an OTEndPlay brace with patellar support which is helping [...] SURGERY Left 2017 LT KNEE SCOPE- STEPANIC [place] HAND/FINGER SURGERY UNLISTED Right 2002 thumb family [...] Morbid (severe) obesity due to excess calories ([facility]) - Primary Discussed with patient their BMI [...] Morbid (severe) obesity due to excess calories ([facility]) Discussed with patient their BMI (actual, verses recommended). We have also discussed lifestyle modifications: attempts to perform physical activity as chronic conditions allow, also to monitor dietary intake: increasing protein/fruits/veggies and lowering carb intake (unless contraindicated). Limit sodas, juices, and sugary drinks. Is prescribed Wegovy at max dose Has lost approx 30 pounds, starting 03/17 documented in this encounterMercy hospital springfieldIdguncelbf47-66-9041 Evaluation note* Diagnosis Onset Date Resolution Status Admit Date Chronic headaches acuteJune 2024 8:00am [facility] Work Phone: [phone] 590-341405-15-2025 History of Present illness Narrative* Kika Guaman [...] punctureas well as further testing Waiting on [facility] to call to schedule this Was recently [...] SURGERY Left 2017 LT KNEE SCOPE- STEPANIC [place] HAND/FINGER SURGERY UNLISTED Right 2002 thumb family [...] increase to max dose documented [facility] this [facility]05-15-2025 Instructions* Patient Instructions* Kika Guaman NP - 07/05/2024 9:20 AM EDT No dose change in the fluoxetine We will increase dose on wegovy to 2.4mg documented [facility] this [facility]04-28-2025 History of Present illness Narrative* Briana Gordon, - 06/18/2024 12:30 PM EDT Images from the original note were not included. Chief complaint: Headaches Subjective Robles Yen, 39 y.o., female The pt presents today for a neurological consultation at the request of Dr. Hinojosa for Migraines. She was seen at [facility] for migraines and and MRI was [...] SURGERY Left 2017 LT KNEE SCOPE- STEPANIC [place] HAND/FINGER SURGERY UNLISTED Right 2002 thumb Family [...] , wrist extensors , wrist flexor , tape machine tailer strength 5/5. LUE Strength deltoid , biceps , triceps , wrist extensors , wrist flexor , tape machine tailer strength 5/5. RLE Strength illopsoas, quadriceps, tibialis [...] reflex 2+ . Linares's sign negative. Coordination: Lcxnvb-mp-shkr testing and rapid alternating movements are normal [...] plan, and return instructions documented in this encounterMercy hospital springfieldOmsiikdlvh57-52-1472 History of Present illness Narrative* Kika Guaman [...] SURGERY Left 2017 LT KNEE SCOPE- STEPANIC [place] HAND/FINGER SURGERY UNLISTED Right 2002 thumb family [...] trialed some qulipta No MRI brain at [facility] Qulipta did help Relevant Medications Atogepant [...] trialed some qulipta No MRI brain at [facility] Qulipta did help, will continue Order [...] in new script 1mg documented in this encounterMercy hospital springfieldJbkojzbpat88-03-6748 Instructions* Patient Instructions* Kika Guaman NP - 04/10/2024 9:00 AM EST Sinus: finish atb, fluids, rest fu if not better GARCIA: qulipta 60mg daily, will try to get MRI approved for [facility] Weight loss; after finished with 0.5mg wegovy, increase in 1mg documented [facility]25 Telephone encounter Note* Telephone Encounter - Kika Guaman NP - 03/20/2024 10:24 AM EST Please call to schedule pt a well women examination please [place] [facility] [phone] Miscellaneous Notes* Telephone Encounter - Kika Guaman NP - 03/20/2024 10:24 AM EST Please call to schedule pt a well women examination please [place] documented in this [facility]01-09-[facility]25 History of Present illness Narrative* Kika [...] qulipta 60 mg daily #2 samples, lot [id number], exp 11/16 Trialed: nsaids, imitrex, ubrelvey, topamax CT head: 04/05/23: normal MRI brain: reports has had one in the last year or so, will attempt to track down. Left message [facility] radiology for MRI report * RAMONITA GODWIN - 2024 9:40 AM EST [facility]. Pt [...] Not able to get insurance coverage for [employer], ultimately went back to [employer] around 12/14, she isup to max dose [...] SURGERY Left 2017 LT KNEE SCOPE- STEPANIC [place] HAND/FINGER SURGERY UNLISTED Right 2002 thumb family [...] qulipta 60 mg daily #2 samples, lot [id number], exp 11/16 Trialed: nsaids, imitrex, ubrelvey, topamax CT head: 04/05/23: normal MRI brain: reports has had one in the last year or so, will attempt to track down. Left message [facility] radiology for MRI report Morbid (severe) obesity [...] we will try again documented in [facility]Mer[id number] Instructions* Patient Instructions* Kika Guaman NP - 2024 9:40 AM EST I will try to re submit wegovy to insurance, if approved we will have to stop saxenda and start that Migraines: Qulipta 60mg daily, for migraine headaches documented in this encounterMer[facility] [id number] Telephone encounter Note* Telephone Encounter - Kika Guaman NP - 01/21/2024 4:40 PM EST I did speak to pt, only symptom is cough, no sinus pressure or nasal drainage. Has tried OTC Nyquilas well as tylenol cough/cold Will send in tessalon script [facility] [id number] Miscellaneous Notes* Telephone Encounter - Kika Guaman NP - 01/21/2024 4:40 PM EST I did speak to pt, only symptom is cough, no sinus pressure or nasal drainage. Has tried OTC Nyquilas well as tylenol cough/cold Will send in tessalon script documented in this encounterMercy hospital [id number] History of Present illness Narrative* Kika Guaman NP - 11/09/2023 2:25 PM EDTAssociated Problem(s): Moderate major depression (CMS/HCC) Follow with mental health * Kika Guaman NP - 11/09/2023 2:25 PM EDTAssociated Problem(s): Moderate anxiety Follow with mental health * Kika Guaman [...] supply per insurance request * Kika Schustertammieyoni, VIS[employer] STYLIST - 11/09/2023 1:40 PM EDT Images from [...] SURGERY Left 2017 LT KNEE SCOPE- STEPANIC [place] HAND/FINGER SURGERY UNLISTED Right 2002 thumb family [...] excess calories (CMS/HCC) Still working to get [employer] Moderate anxiety Follow with mental health Moderate major depression (CMS/HCC) Follow with mental health documented in this encounterMercy hospital [id number] Evaluation note* Encounter Date Diagnosis Assessment Notes [...] provided x 1 day, no extension allowed [employer] Other 11-24-2021 Evaluation note* Encounter Date Diagnosis [...] care instructions given in writting by [facility] Care At Home document. [employer] Other 10-20-2021 Evaluation note* Encounter Date Diagnosis [...] care instructions given in writting by [facility] Care At Home document. [employer] Other Chief complaint+Reason for visit Narrative* Chief Complaint throat pain Reason for Visit Contact with and (ortega spected) exposure to covid-19 Sore throat [facility] Work Phone: Evaluation note* Diagnosis Irregular menses Irregular menstrual cycle Possible , not yet confirmed examination or test, unconfirmed documented in this encounter [facility] [employer] Work Phone: evaluation note* Diagnosis Onset Date Resolution Status Contact with and (suspected) exposure to covid-19 acuteSore throatacute [facility] Work Phone: Evaluation note* Diagnosis Onset Date Resolution Status Contact with and (suspected) exposure to covid-19 acuteCOVID-19acuteSore throatacuteStreptococcal pharyngitisacuteInfluenza A (H1N1)noneactive [facility] Work Phone: Evaluation note* Diagnosis Onset Date Resolution Status Contact with and (suspected) exposure to covid-19 acuteCOVID-19acuteSore throatacuteStreptococcal pharyngitisacuteInfluenza A (H1N1)noneactiveInjurynoneactive [facility] Work Phone: Evaluation note* Diagnosis Onset Date Resolution Status Contact with and (suspected) exposure to covid-19 acuteCOVID-19acuteSore throatacuteStreptococcal pharyngitisacuteInfluenza A (H1N1)noneactiveInjurynoneactiveLeft ankle sprainnoneactive [facility] Work Phone: Evaluation note* Diagnosis Migraine [...] infection, unspecified Dysmenorrhea documented in this encounter [facility] HealthcareEvaluation note* Diagnosis Migraine without aura [...] intractable (CMS/HCC)- Primary documented in this encounter [facility] HealthcareEvaluation note* Diagnosis Migraine without aura [...] Benign intracranial hypertension documented in this encounter [facility] HealthcareEvaluation note* Diagnosis Migraine without aura [...] Date Idiopathic intracranial hypertension acuteOctober 2024 3:06pm [facility] Work Phone: Hiszsio general Narrative - Reported* Type Description Date Surgical History laparoscopy Knees Right and Lef t Hospitalization HistoryChildbirth Natural x4 [facility] Other [facility] general Narrative - Reported* Type Description Date Medical History herpes Surgical Historylaparoscopy Knees Right and LeftSurgical Historycholecystectomy Surgical HistoryappendectomySurgical Historyright thumb\Hospitalization History Childbirth Natural x4 [employer] Other Reason for referral (narrative)No reason for referral information availableHolzer Hospital Work Phone: Rezeet for visit Narrative* Consultation (Routine) - ClosedSpecialtyDiagnoses / ProceduresReferred By ContactReferred To Contact Neurology Diagnoses Migraine without aura and without status migrainosus, not intractable (CMS/HCC) Procedures [place] OFFICE/OUTPATIENT [facility] 60 MINUTES Kika Guaman NP [address] [place] [address] Phone: tel: fax: Briana Gordon, [address] [place] [address] Phone: tel: fax: Referral IDStatusReasonStart DateExpiration DateVisits RequestedVisits [id number] Consult and Treat / [facility] Healthcare Assessments Diagnosis 27 weeks gestation [...] Code 12/05/2018 11:33 12/06/2018 3:01 AMTypeDate RecordedPatient Vessel Specialist ExplanationACP-Advance DirectiveACP-Power of AttorneyCode StatusDate Activated Date [...] RN - 12/06/2018 OUTPATIENT DISCHARGE Jennifer Calvert [facility] [place] or [address]luis Dr. Galan Freya Husain [facility] Anahy Timoteo [facility] Dr. Mira Hagen Freya Conde [facility] ACTIVITY LIMITATIONS: ( z )Up and about [...] Follow-up with your OB doctor as specified. [facility] OB Department phone: Dr. Danis Russo [facility] Dr. Pete Fischer [address] or [place] DIET Eat a well balanced diet focusing on foods high in fiber and protein. Drink plenty of fluids especially water. To avoid constipation you may take a mild stool softener as recommended by your doctor or director electronics. ACTIVITY Gradually increase your activity. Resume exercise regimen only after advice by your doctor or director electronics. Avoid lifting anything heavier than a gallon of milk for SIX weeks. Avoid driving until your doctor or director electronics has given their approval. Rise slowly from [...] medications as recommended by your doctor or director electronics for pain If you develop a warm, [...] vitamins as directed by your doctor or director electronics. Refer to the booklet in the folder/binder for more information. If you feel you need more assistance or have questions, please call Gia Walton IBCLC, distributor sales consultant, at or the OB department to [...] they become loose or soiled. If used, [place] should be removed by your care provider. [...] Outpatient Instructions for IM or Subcutaneous Injections [address] [place] [address] You are advised to carry out the [...] RN - 12/04/2018 OUTPATIENT DISCHARGE Jennifer Calvert [facility] [place] or Jluis Freya Husain [facility] ACTIVITY LIMITATIONS: ( X )Up and about [...] the referral. Education session duration: 70 minutes; ([id number]). Reminder to ordering Physician/Provider: Diabetes and CKD [...] for Visit Admit Date Idiopathic intracranial hypertension [facility] shailehs 2024 3:06pm Additional Source Comments Reason for Visit (unrecogniz ed section and content) ReasonCommentsConstipationReasonCommentsScheduled InductionStatusReasonSpecialty Diagnoses / ProceduresReferred By ContactReferred To Contact Diagnoses High blood pressure Amaya Russo APRN - CNM [address] [place] [address] [facility] ReasonCommentsGestational DiabetesStatusReasonSpecialtyDiagnoses / Procedures Referred By ContactReferred To ContactOpen Specialty Services Required Diabetes Services Diagnoses Abnormal GTT (glucose tolerance test) Amaya Russo APRN - CNM [address] [place] [address] [facility] Diabetic Education [address] [place] [address] ReasonCommentsHypertensionReasonOnset DateCommentsMed Hypldv834Reason CommentsMed Change RequestReasonCommentsWeight GainReasonCommentsMed Refill ReasonCommentsAnxiety INFORMATION SOURCE (unrecogn ized section and content) DATE CREATED AUTHOR 01/04/2020 [facility] DATE CREATED AUTHOR AUTHOR'S ORGANIZ ATION 07/03/2022 [facility] DATE CREATED AUTHOR AUTHOR'S ORGANIZ ATION 02/07/2024 [facility] DATE CREATED AUTHOR AUTHOR'S ORGANIZ ATION 09/03/2024 [facility] DATE CREATED AUTHOR AUTHOR'S ORGANIZ ATION 10/08/2024 [facility] EPIC Care Teams (unrecognized sec tion and content) Team MemberRelationshipSpecialtyStart DateEnd Date Benji Hinojosa MD [address] [place] [address] PCP - GeneralCardiology07/30/22 Kika Guaman NP [address] [place] [address] Referring PhysicianNurse Practitioner07/30/22 Team Status: Active Member [...] Hinojosa MD [address] [place] [address] PCP - [facility] Medicine06/22/2409 Unallocated, Swathi Perry MD [address] [place] [address] [facility] - [facility] Cgsajyca50/15/24 Kika Guaman NP Referring PhysicianNurse Practitioner07/30/22 Kika Guaman NP [address] [place] [address] [facility] Pract[facility]erKen[facility] Medicine06/23/23Team MemberRelationshipSpecialtyStart DateEnd Date Benji Hinojosa MD [address] [place] [address] [facility] Oxvrbwcn52/31/24 Kika Guaman NP Referring PhysicianNurse Practitioner07/30/22 Kika Guaman NP [address] [place] [address] [facility] Medicine06/23/23Team MemberRelationshipSpecialtyStart DateEnd Date Benji Hinojosa MD [address] [place] [address] PCP - [facility] Medicine06/23/23 Kika Guaman NP Referring PhysicianNurse Practitioner07/30/22 Kika Guaman NP [address] [place] [address] [facility] Medicine06/23/23Team MemberRelationshipSpecialtyStart DateEnd Date Benji Hinojosa MD [address] [place] [address] PCP - [facility] Medicine06/23/23 Kika Guaman NP Referring PhysicianNurse Practitioner07/30/22 Kika Guaman NP [address] [place] [address] [facility] Medicine06/23/23Team MemberRelationshipSpecialtyStart DateEnd Date Benji Hinojosa MD [address] [place] [address] PCP - [facility]06/23/23 Kika Guaman NP Referring PhysicianNurse Practitioner07/30/22 Kika Guaman NP [address] [place] [address] [facility]06/23/23Team MemberRelationshipSpecialtyStart DateEnd Date Benji Hinojosa MD [address] [place] [address] PCP - [facility]12/22/23 Kika Guaman NP Referring PhysicianNurse Practitioner07/30/22 Kika Guaman NP [address] [place] [address] [facility] Pract[facility]erJeff [facility]06/23/23Team MemberRelationshipSpecialtyStart DateEnd Date Benji Hinojosa MD [address] [place] [address] PCP - [facility]12/22/23 Kika Guaman NP Referring PhysicianNurse Practitioner07/30/22 Kika Guaman NP [address] [place] [address] [facility] Pract[facility]erJeff [facility]06/23/23Team MemberRelationshipSpecialtyStart DateEnd Date Benji Hinojosa MD [address] [place] [address] [facility] Mxtnhbba20/31/24 Kika Guaman NP Referring PhysicianNurse Practitioner07/30/22 Kika Guaman NP [address] [place] [address] [facility] Medicine06/23/23Team MemberRelationshipSpecialtyStart DateEnd Date Benji Hinojosa MD [address] [place] [address] PCP - [facility]12/22/23 Kika Guaman NP Referring PhysicianNurse Practitioner07/30/22 Kika Guaman NP [address] [place] [address] Nurse Pract[facility]erJeff [facility]06/23/23Team MemberRelationshipSpecialtyStart DateEnd Date Benji Hinojosa MD [address] [place] [address] PCP - [facility] Wdsimacf86/31/24 iKka Guaman NP Referring PhysicianNurse Practitioner07/30/22 Kika Guaman NP [address] [place] [address] [facility] Medicine06/23/23Team MemberRelationshipSpecialtyStart DateEnd Date Benji Hinojosa MD [address] [place] [address] [facility] Abfidwbk44/31/24 Kika Guaman NP Referring PhysicianNurse Practitioner07/30/22 Kika Guaman NP [address] [place] [address] Nurse Pract[facility]erJeff [facility] Hospital06/23/23Team MemberRelationshipSpecialtyStart DateEnd Date Benji Hinojosa MD [address] [place] [address] PCP - [facility] Cmbzgnwy58/31/24 Kika Guaman NP Referring PhysicianNurse Practitioner07/30/22 Kika Guaman NP [address] [place] [address] Nurse PractitionerJeff [facility] Hospital06/23/23Team MemberRelationshipSpecialtyStart DateEnd Date Benji Hinojosa MD [address] [place] [address] [facility] - [facility] Tpyyrmod67/31/24 Kika Guaman NP Referring PhysicianNurse Practitioner07/30/22 Kika Guaman NP [address] [place] [address] Nurse PractitionerFafitchburg general hospital Medicine06/23/23Team MemberRelationshipSpecialtyStart DateEnd Date Benji Hinojosa MD [address] [place] [address] PCP - Generalmi Nxxqpcyl31/31/24 Kika Guaman NP Referring PhysicianNurse Practitioner07/30/22 Kika Guaman NP [address] [place] [address] Nurse PractitionerJeff [facility] Hospital06/23/23Team MemberRelationshipSpecialtyStart DateEnd Date Benji Hinojosa MD [address] [place] [address] [facility] - [facility] Vwtmdzqq58/31/24 Kika Guaman NP Referring PhysicianNurse Practitioner07/30/22 Kika Guaman NP [address] [place] [address] Nurse PractitionerJeff [facility] Hospital06/23/23Team MemberRelationshipSpecialtyStart DateEnd Date Benji Hinojosa MD [address] [place] [address] PCP - GeneralFamily Rbhgfbuh46/31/24 Kika Guaman NP Referring PhysicianNurse Practitioner07/30/22 Kika Guaman NP [address] [place] [address] Nurse PractitionerFamily Medicine06/23/23 Briana Gordon DO [address] [place] [address] Referring PhysicianNeurology06/18/24Team MemberRelationshipSpecialtyStart DateEnd Date Benji Hinojosa MD [address] [place] [address] PCP - GeneralFamily Pmgvjfer40/31/24 Kika Guaman NP Referring PhysicianNurse Practitioner07/30/22 Kika Guaman NP [address] [place] [address] Nurse PractitionerFamily Medicine06/23/23 Briana Gordon DO [address] [place] [address] Referring PhysicianNeurology06/18/24Team MemberRelationshipSpecialtyStart DateEnd Date Benji Hinojosa MD [address] [place] [address] PCP - GeneralFamily Sglyxihf79/31/24 Kika Guaman NP Referring PhysicianNurse Practitioner07/30/22 Kika Guaman NP [address] [place] [address] Nurse PractitionerFamily Medicine06/23/23 Briana Gordon DO [address] [place] [address] Referring PhysicianNeurology06/18/24Team MemberRelationshipSpecialtyStart DateEnd Date Benji Hinojosa MD [address] [place] [address] PCP - GeneralFamily Zuyscood64/31/24 Kika Guaman NP Referring PhysicianNurse Practitioner07/30/22 Kika Guaman NP [address] [place] [address] Nurse PractitionerFamsly Medicine06/23/23 Briana Gordon DO [address] [place] [address] Referring PhysicianNeurology06/18/24Team MemberRelationshipSpecialtyStart DateEnd Date Benji Hinojosa MD [address] [place] [address] PCP - GeneralFamily Ulsstuyp35/31/24 Kika Guaman NP Referring PhysicianNurse Practitioner07/30/22 Kika Guaman NP [address] [place] [address] Nurse PractitionerFamsly Medicine06/23/23 Briana Gordon DO [address] [address] Referring PhysicianNeurology06/18/24 Team Status: Inactive Member Role [...] Date Benji Hinojosa MD [address] [place] [address] PCP - GeneralFafitchburg general hospital Heonkcbs80/31/24 Kika Guaman NP Referring PhysicianNurse Practitioner07/30/22 Kika Guaman NP [address] [place] [address] Nurse PractitionerFamily Medicine06/23/23 Briana Gordon DO [address] [place] [address] Referring PhysicianNeurology06/18/24Team MemberRelationshipSpecialtyStart DateEnd Date Benji Hinojosa MD [address] [place] [address] [facility] - [facility] Fgsvamjm93/31/24 Kika Guaman NP Referring PhysicianNRipley County [facility]07/30/22 Kika Guaman NP [address] [place] [address] Nurse Pract[facility]erKen[facility] Hospital Medicine06/23/23 Briana Gordon DO [address] [address] Referring PhysicianNeurology06/18/24 Team Status: Active Member Role Status Dates Kika Guaman NP-C Primary Care Provider Active Team Status: Inactive Member Role Status Dates Kika Guaman NP-C Primary Care Provider Active Start: November 26, 2024 End: November 26, 2024Kady Gunderson APRN-FNP-CAttending ProviderActiveStart: November 26, 2024 End: November 26, 2024Team MemberRelationshipSpecialtyStart DateEnd Date Benji Hinojosa MD PCP - [facility] Medicine06/22/2409 Unallocated, Swathi Perry MD [address] [place] [address] PCP - GeneralFamily Jirgovzd29/15/ Benji Hinojosa MD PCP - GeneralFamily Mhlkjjrq37/31/24 Kika Guaman NP Referring PhysicianNurse Practitioner07/30/22 Kika Guaman NP Nurse PractitionerFamily Medicine06/23/23 Briana Gordon DO [address] [address] Referring PhysicianNeurology06/18/24Team MemberRelationshipSpecialtyStart DateEnd Date Benji Hinojosa MD PCP - GeneralCardiology Benji Hinojosa MD PCP - GeneralFamily Medicine06/22/2409 Unallocated, Swathi Perry MD [address] [place] [address] PCP - GeneralFamily Ztjcqpmo77/15/ Benji Hinojosa MD PCP - GeneralFamily Zrkfsvja46/31/24 Kika Guaman NP Referring PhysicianNurse Practitioner07/30/22 Kika Guaman NP Nurse PractitionerFamily Medicine06/23/23 Briana Gordon DO [address] [place] [address] Referring PhysicianNeurology06/18/24 Goals (unrecognized section and content) [...] BE BASED ON THE PRIMARY CLINICAL RECORDS. [employer] provides no warranty or guarantee of the accuracy or completeness of information in this document.
[2025-01-08 11:14] LABS: Hematocrit 38.8 % (36.0-48.0); Hemoglobin 12.8 g/dL (12.0-16.0); Immature Granulocytes Abs Auto 0.01 10^3/uL (0.00-0.03); Immature Granulocytes Pct Auto 0.2 % (0.0-0.5); Lymphocytes Absolute Auto 1.9 10^3/uL (1.2-3.8); Mean Corpuscular HGB Conc 33.0 g/dL (29.9-35.2); Mean Corpuscular Hemoglobin 28.8 pg (26.7-34.0); Mean Corpuscular Volume 87.4 fL (81.0-99.0); Platelet Count 260 10^3/uL (150-450); Red Blood Count 4.44 10^6/uL (4.20-5.40); White Blood Count 5.9 10^3/uL (4.0-11.0)
[2025-01-08 11:33] LABS: Iron 65.0 ug/dL (50.0-170.0); Percent Iron Saturation 23.0 %; Total Iron Binding Capacity 282.0 ug/dL (250.0-450.0)
[2025-01-08 11:51] LABS: Ferritin 69.0 ng/mL (8.0-252.0); Folate 7.10 ng/mL (8.60-58.90)
[2025-01-08 13:08] LABS: Free T3 2.47 pg/mL (2.18-3.98); Thyroid Stimulating Hormone 2.801 uIU/mL (0.358-3.740)
[2025-01-09 04:07] LABS: Vitamin B12 252 pg/mL (232-1245)
[2025-01-09 08:12] LABS: Transferrin 242 mg/dL (192-364)
== END 2025-01-08 09:38 | disposition home or self-care (01) ==
PROVIDERS: PCP Nurse Practitioner; Visit Provider Nurse Practitioner
DX: F33.9 Major depressive disorder, recurrent, unspecified (principal); F41.1 Generalized anxiety disorder
CPT/HCPCS: 36415; 82607; 82728; 82746; 83540; 83550; 84439; 84443; 84466; 84481; 85025; 86376; 86800